=== PATIENT | male | born 1975 | race Caucasian/White ===

== ENCOUNTER 2023-10-05 03:28 | Observation (INO) | payer OTHER, SELFPAY ==
[2023-10-05] VITALS (96 sets, daily range): BP systolic 150–171; BP diastolic 80–116; PULSE 90–121; RESP 8–27; TEMP 36.6–37.1; O2SAT 87–98; BMI 39.1; BMI 39.7
[2023-10-05 03:46] LABS: Glucometer 237 mg/dL (74-106)
--- NOTE | 2023-10-05 03:47 | ECG_ITS ---
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
--- NOTE | 2023-10-05 03:49 | XR_ITS ---
The [address] [address] Patient Name: TERA ROBERTO MRN: [id number] date: 1975 Sex: M Assigned Patient Location: ER Current Patient Location: Accession/Order Number: [id number] Exam Date: 10/05/2023 03:55 Report Date: 10/05/2023 22:43 At the request of: LINA DURANT Procedure: XR chest 1V EXAM: XR CHEST 1V HISTORY: Shortness of breath. COMPARISON: None. TECHNIQUE: One view of the chest was obtained. FINDINGS: The cardiac silhouette is borderline enlarged. There is interstitial prominence. There is no significant pneumothorax or pleural effusion. No acute osseous abnormality is seen. XR/XR chest 1V IMPRESSION: Borderline enlarged cardiac silhouette with suspected interstitial edema. Electronically authenticated by: Carline ROLLINS Date: 10/05/2023 22:43
[2023-10-05 03:57] LABS: Basophils Absolute Auto 0.1 10^3/uL (0.0-0.1); Basophils Percent Auto 1.1 % (0.2-2.0); Eosinophils Absolute Auto 0.1 10^3/uL (0.0-0.7); Eosinophils Percent Auto 1.5 % (0.9-7.0); Hematocrit 49.4 % (42.0-54.0); Hemoglobin 16.5 g/dL (14.0-18.0); Immature Granulocytes Abs Auto 0.04 10^3/uL (0.00-0.03); Immature Granulocytes Pct Auto 0.8 % (0.0-0.5); Lymphocytes Absolute Auto 1.2 10^3/uL (1.2-3.8); Lymphocytes Percent Auto 22.1 % (20.5-60.0); Mean Corpuscular HGB Conc 33.4 g/dL (29.9-35.2); Mean Corpuscular Hemoglobin 34.9 pg (25.9-34.0); Mean Corpuscular Volume 104.4 fL (80.0-94.0); Mean Platelet Volume 9.9 fL (9.5-13.5); Monocytes Absolute Auto 0.6 10^3/uL (0.3-0.8); Monocytes Percent Auto 10.4 % (1.7-12.0); Neutrophils Absolute Auto 3.4 10^3/uL (1.4-6.5); Neutrophils Percent Auto 64.1 % (43.0-75.0); Platelet Count 210 10^3/uL (150-450); Red Blood Count 4.73 10^6/uL (4.70-6.10); Red Cell Distribution Width 12.2 % (11.0-15.0); White Blood Count 5.3 10^3/uL (4.0-11.0)
--- NOTE | 2023-10-05 03:57 | PC.NURSE ---
Pt presents to ER for sudden onset shortness of breath with chest pain that radiates through to his back Pt states he has no history of respiratory or cardiac diagnosis Pt states this shortness of breath woke him up from sleep Pt is red in the face, purple tinged Pt is visibly uncomfortable and working hard to breathe Pt placed on air sampling and monitoring, IV started, labs obtained as well as a blood glucose
--- NOTE | 2023-10-05 04:00 | CT_ITS ---
The [address] [address] Patient Name: TERA ROBERTO MRN: [id number] date: 1975 Sex: M Assigned Patient Location: ER Current Patient Location: ER Accession/Order Number: [id number] Exam Date: 10/05/2023 04:18 Report Date: 10/05/2023 07:55 At the request of: LINA DURANT Procedure: CT angio chest EXAMINATION: CT ANGIO CHEST (NONCORONARY), 10/05/2023 5:26 AM EST HISTORY: Technologist notes state shortness of breath; diaphoretic and history of hypertension. COMPARISON: None. TECHNIQUE: CT angiography of the chest was performed with IV contrast. MIP (maximum intensity projection) images or 3D post processing was performed. CT dose reduction technique was used, including Automated Exposure Control. FINDINGS: There is contrast within the pulmonary arteries. There is no pulmonary embolus. The pulmonary trunk is upper limits normal size measuring 3 cm in transverse dimensions. There is no right heart strain. The heart size is within normal limits. There is no pericardial fluid or thickening. There is atheromatous calcification along the left main, left anterior descending and right coronary arteries. The thoracic aorta is unremarkable. There is a small atheromatous calcification along the proximal aspect of the abdominal aorta. Mild patchy areas of groundglass opacity within both upper, both lower and right middle lobes which can be associated with a pneumonitis. There is peribronchial thickening consistent with a bronchitis. There is no pleural effusion. There is a 0.3 cm noncalcified right upper lobe nodule (series 4 image 35). There is a 0.4 cm noncalcified right middle lobe nodule (series 4 image 61). There is a 0.4 cm noncalcified left upper lobe nodule (series 4 image 55). There is a 0.5 cm noncalcified left upper lobe nodule (series 4 image 56). There are abutting 0.4 cm and 0.2 cm noncalcified left upper lobe nodules (series 4 image 59). There are 0.4 cm, 0.4 cm and 0.2 cm noncalcified left upper lobe nodules (series 4 image 47 and 48). There are enlarged mediastinal and bilateral hilar lymph nodes which may be reactive. The trachea is unremarkable. There is mild diffuse circumferential thickening of the esophageal wall which can be associated with an esophagitis or sequelae of chronic gastroesophageal reflux. The thyroid gland is unremarkable. The liver appears enlarged and fatty infiltrated. There is mild bilateral adrenal hypertrophy. There are severe degenerative changes at the right glenohumeral articulation. There are prominent paravertebral ossifications at numerous levels along the thoracic spine with the appearance of DISH. CT/CT angio chest IMPRESSION: There is no pulmonary embolus. Mild patchy areas of groundglass opacity within both upper, both lower and right middle lobes which can be associated with a pneumonitis. There is peribronchial thickening consistent with a bronchitis. There is no pleural effusion. A CT examination the chest following appropriate medical treatment is recommended to confirm complete resolution. There is a 0.3 cm noncalcified right upper lobe nodule (series 4 image 35). There is a 0.4 cm noncalcified right middle lobe nodule (series 4 image 61). There is a 0.4 cm noncalcified left upper lobe nodule (series 4 image 55). There is a 0.5 cm noncalcified left upper lobe nodule (series 4 image 56). There are abutting 0.4 cm and 0.2 cm noncalcified left upper lobe nodules (series 4 image 59). There are 0.4 cm, 0.4 cm and 0.2 cm noncalcified left upper lobe nodules (series 4 image 47 and 48). Reassessment on the follow-up CT examination recommended. There are enlarged mediastinal and bilateral hilar lymph nodes which may be reactive. Reassessment on the follow-up CT examination recommended to confirm resolution. There is mild diffuse circumferential thickening of the esophageal wall which can be associated with an esophagitis or sequelae of chronic gastroesophageal reflux. Correlate with clinical findings. The liver appears enlarged and fatty infiltrated. There is mild bilateral adrenal hypertrophy. There is atheromatous calcification along the left main, left anterior descending and right coronary arteries. Electronically authenticated by: KRYSTYNA TOVAR Date: 10/05/2023 07:55
--- NOTE | 2023-10-05 04:01 | ED.SOB1 ---
HPI - SOB/Dyspnea General Chief Complaint: Shortness of Breath/Dyspnea Stated Complaint: SOB Time Seen by Provider: 10/05/23 03:56 Source: patient Mode of arrival: walk-in Limitations: no limitations History of Present Illness HPI Narrative: diabetic, hyperlipidemia. Sleep apnea. Daily smoker. Awakened from sleep with ant. chest pressure that radiated to his back and dyspnea. His chest pressure and back pain have resolved but he still feels short of breath. No associated nausea or abdominal pain Related Data Home Medications Medication Instructions Recorded Confirmed empagliflozin 25 mg tablet mg 10/05/23 (Jardiance) glimepiride 4 mg tablet mg 10/05/23 ondansetron 4 mg disintegrating mg 10/05/23 tablet pioglitazone 30 mg tablet mg 10/05/23 simvastatin 20 mg tablet mg 10/05/23 venlafaxine 75 mg capsule,extended mg PO 10/05/23 release 24 hr Allergies Allergy/AdvReac Type Severity Reaction Status Date / Time No Known Drug Allergies Allergy Verified 10/05/23 03:39 Review of Systems ROS Status of ROS 10 or more systems reviewed and unremarkable except as noted in history and below PFSH PFS Social History Smoking status: Current every day smoker Exam Constitutional Vital Signs, click to edit/add: Last Vital Signs Temp 98.8 F 10/05/23 03:32 Pulse 106 H 10/05/23 06:01 Resp 15 10/05/23 05:20 BP 150/96 H 10/05/23 06:01 Pulse Ox 95 10/05/23 06:01 O2 Del Method Room Air 10/05/23 03:32 Common normals: no apparent distress, average body habitus, oriented x3, no limitations, healthy appearing, alert and well nourished Eye Common normals: PERRL and EOMs intact bilaterally Respiratory Common normals: normal respiratory effort, no retractions, no use of accessory muscles and clear to auscultation bilaterally Cardio Common normals: regular rate, regular rhythm, S1 normal heart sound and S2 normal heart sound GI Common normals: Normal to inspection, nondistended, normoactive bowel sounds present, soft to palpation and non-tender Extremity Common normals: normal to inspection and full ROM Neuro Common normals: oriented x3, CN's II-XII intact bilaterally, moves all extremities and no focal motor deficits Psych Appearance: grossly normal Course Vital Signs Vital signs: Vital Signs Temperature 98.8 F 10/05/23 03:32 Pulse Rate 116 H 10/05/23 03:32 Respiratory Rate 22 10/05/23 03:32 Blood Pressure 167/116 H 10/05/23 03:32 Pulse Oximetry 95 10/05/23 03:32 Oxygen Delivery Method Room Air 10/05/23 03:32 Temperature 98.8 F 10/05/23 03:32 Pulse Rate 106 H 10/05/23 06:01 Respiratory Rate 15 10/05/23 05:20 Blood Pressure 150/96 H 10/05/23 06:01 Pulse Oximetry 95 10/05/23 06:01 Oxygen Delivery Method Room Air 10/05/23 03:32 MDM - SOB/Dyspnea MDM Narrative Medical decision making narrative: diabetic awakened from sleep with chest pressure that radiated through to his back and shortness of breath. Still short of breath with exertion.Daily smoker. First troponin neg. CTA chest with findings of pneumonitis and bronchitis. Also multiple pulm noudles that will require follow up .Patient is asymptomatic at rest but becomes short of breath with exertion. Discussed with Dr Hall who would like a 2nd troponin. If it is neg, he can be admitted here. Patient informed of the plan care transferred to Dr Andino to review results of 2nd troponin and disposition the patient resp. panel also pending Lab Data Labs: Lab Results 10/05/23 10/05/23 Range/Units 03:44 03:45 WBC 5.3 (4.0-11.0) 10^3/uL RBC 4.73 (4.70-6.10) 10^6/uL Hgb 16.5 (14.0-18.0) g/dL Hct 49.4 (42.0-54.0) % MCV 104.4 H (80.0-94.0) fL MCH 34.9 H (25.9-34.0) pg MCHC 33.4 (29.9-35.2) g/dL RDW 12.2 (11.0-15.0) % Plt Count 210 (150-450) 10^3/uL MPV 9.9 (9.5-13.5) fL Neut % (Auto) 64.1 (43.0-75.0) % Lymph % (Auto) 22.1 (20.5-60.0) % [place] % (Auto) 10.4 (1.7-12.0) % Eos % (Auto) 1.5 (0.9-7.0) % Baso % (Auto) 1.1 (0.2-2.0) % Neut # (Auto) 3.4 (1.4-6.5) 10^3/uL Lymph # (Auto) 1.2 (1.2-3.8) 10^3/uL [place] # (Auto) 0.6 (0.3-0.8) 10^3/uL Eos # (Auto) 0.1 (0.0-0.7) 10^3/uL Baso # (Auto) 0.1 (0.0-0.1) 10^3/uL Abs Immat Gran (auto) 0.04 H (0.00-0.03) 10^3/uL Imm/Tot Granulo (auto) 0.8 H (0.0-0.5) % D-Dimer 0.43 (<=0.59) mg/L FEU Sodium 140 (136-145) mmol/L Potassium 4.7 (3.5-5.1) mmol/L Chloride 104 (98-107) mmol/L Carbon Dioxide 25.1 (21.0-32.0) mmol/L Anion Gap 15.6 BUN 19.0 H (7.0-18.0) mg/dL Creatinine 0.97 (0.70-1.30) mg/dL Est GFR ( Amer) >60 (>=60) Est GFR (Non-Af Amer) >60 (>=60) BUN/Creatinine Ratio 19.6 Glucose 262 H (74-106) mg/dL Calcium 9.2 (8.5-10.1) mg/dL Total Bilirubin 0.2 (0.2-1.0) mg/dL AST 31 (15-37) U/L ALT 86 H (16-63) U/L Alkaline Phosphatase 108 (46-116) U/L Troponin I High Sens 23.2 (4.0-76.1) pg/mL Total Protein 7.6 (6.4-8.2) g/dL Albumin 3.6 (3.4-5.0) g/dL Globulin 4.0 g/dL Albumin/Globulin Ratio 0.9 POC Glucose 237 H (74-106) mg/dL Discharge Plan Discharge Patient Disposition: Still a Patient
[2023-10-05 04:17] LABS: Alanine Aminotransferase 86 U/L (16-63); Albumin Globulin Ratio 0.9; Albumin Level 3.6 g/dL (3.4-5.0); Alkaline Phosphatase 108 U/L (46-116); Anion Gap 15.6; Aspartate Amino Transferase 31 U/L (15-37); BUN Creatinine Ratio 19.6; Bilirubin Total 0.2 mg/dL (0.2-1.0); Calcium 9.2 mg/dL (8.5-10.1); Carbon Dioxide 25.1 mmol/L (21.0-32.0); Chloride 104 mmol/L (98-107); Estimated GFR (African America >60 (>=60); Estimated GFR (Non-African Ame >60 (>=60); Glucose 262 mg/dL (74-106); Potassium 4.7 mmol/L (3.5-5.1); Sodium 140 mmol/L (136-145); Total Protein 7.6 g/dL (6.4-8.2); Troponin I High Sensitivity 23.2 pg/mL (4.0-76.1)
[2023-10-05 04:33] LABS: D Dimer 0.43 mg/L FEU (<=0.59)
[2023-10-05 06:36] LABS: Adenovirus NOT DETECTED (NOT DETECTE); Coronavirus 229E NOT DETECTED (NOT DETECTE); Coronavirus HKU1 NOT DETECTED (NOT DETECTE); Coronavirus NL63 NOT DETECTED (NOT DETECTE); Coronavirus OC43 NOT DETECTED (NOT DETECTE); Human Metapneumovirus NOT DETECTED (NOT DETECTE); SARS-CoV-2 NOT DETECTED (NOT DETECTE)
[2023-10-05 06:37] LABS: Bordetella parapertussis NOT DETECTED (NOT DETECTE); Human Rhinovirus/Enterovirus NOT DETECTED (NOT DETECTE); Influenza A NOT DETECTED (NOT DETECTE); Influenza B NOT DETECTED (NOT DETECTE); Mycoplasma pneumoniae NOT DETECTED (NOT DETECTE); Parainfluenza Virus 1 NOT DETECTED (NOT DETECTE); Parainfluenza Virus 2 NOT DETECTED (NOT DETECTE); Parainfluenza Virus 3 NOT DETECTED (NOT DETECTE); Parainfluenza Virus 4 NOT DETECTED (NOT DETECTE); Respiratory Syncytial Virus NOT DETECTED (NOT DETECTE)
[2023-10-05 06:51] LABS: Troponin I High Sensitivity 26.8 pg/mL (4.0-76.1)
--- NOTE | 2023-10-05 07:48 | P.HP_ITS ---
H&P: HPI History of Present Illness Chief complaint: SOB Narrative: Patient with his at home and awoken with chest pain. Got up to go to the bathroom and had significant shortness of breath. Presented to the emergency room. Patient found to have acute hypoxia with O2 saturation of 87%. CTA shows groundglass appearance possible CHF, BNP is pending. When I saw patient in the intensive care unit his breathing is fairly comfortable to him on supplemental oxygen. But did state that he was just up to go to the bathroom without it and had significant shortness of breath Review of Systems ROS Status of ROS 10 or more systems reviewed and unremark able except as noted in history and below PFSH PFS Social History Smoking status: Current every day smoker Meds Home Medications and Allergies Home Medications Medication Instructions Recorded Confirmed Type empagliflozin 25 mg tablet 25 mg PO DAILY 10/05/23 10/05/23 History (Jardiance) glimepiride 4 mg tablet 8 mg PO DAILY 10/05/23 10/05/23 History pioglitazone 30 mg tablet 30 mg PO DAILY 10/05/23 10/05/23 History simvastatin 20 mg tablet 20 mg PO DAILY 10/05/23 10/05/23 History venlafaxine 75 mg capsule,extended 75 mg PO DAILY 10/05/23 10/05/23 History release 24 hr Allergies Allergy/AdvReac Type Severity Reaction Status Date / Time No Known Drug Allergies Allergy Verified 10/05/23 03:39 Exam Constitutional Vital Signs, click to edit/add: Last Vital Signs Temp 98.8 F 10/05/23 03:32 Pulse 108 H 10/05/23 07:10 Resp 15 10/05/23 05:20 BP 150/96 H 10/05/23 06:01 Pulse Ox 98 10/05/23 06:20 O2 Del Method Room Air 10/05/23 03:32 Documenting provider has reviewed patient's vital signs: yes Common normals: no apparent distress (While rest in bed, see above with activity) Lymph Lymphatic: no lymphadenopathy noted Chest Common normals: inspection of chest normal Respiratory Common normals: normal respiratory effort, no retractions and clear to auscultation bilaterally Cardio Common normals: regular rate, regular rhythm and no murmurs GI Common normals: Normal to inspection, nondistended, normoactive bowel sounds present Extremity Common normals: abnormal to inspection (1+ edema in lower extremities) Results Labs Labs: Short CBC 10/05/23 Range/Units 03:45 WBC 5.3 (4.0-11.0) 10^3/uL Hgb 16.5 (14.0-18.0) g/dL Hct 49.4 (42.0-54.0) % Plt Count 210 (150-450) 10^3/uL BMP 10/05/23 03:45 Sodium 140 Potassium 4.7 Chloride 104 Carbon Dioxide 25.1 BUN 19.0 H Creatinine 0.97 Glucose 262 H Calcium 9.2 Liver Function 10/05/23 Range/Units 03:45 Total Bilirubin 0.2 (0.2-1.0) mg/dL AST 31 (15-37) U/L ALT 86 H (16-63) U/L Alkaline Phosphatase 108 (46-116) U/L Albumin 3.6 (3.4-5.0) g/dL Assessment and Plan Assessment and Plan (1) Chest pain: Plan Uncontrolled hypertension, sinus tachycardia, respiratory distress, acute hypoxia with O2 saturation of 87%, improved with supplemental oxygen at 2 L, no chest pain. CT scan with groundglass appearance, COVID test is negative, BNP is pending-suspect suspect possibly heart failure secondary to hypertensive urgency., check echocardiogram, serial troponins, thyroid profile. Placed patient in intensive care unit. Pneumonitis on CT scan-will start IV antibiotics NIDDM-insulin sliding scale, continue with home medications Hypercholesterolemia-continue with home medications Depression symptoms-continue with home medications With acute onset of symptoms, concern for hypertensive urgency leading to acute combined congestive heart failure-lung exam fairly clear though. CT scan consistent with possible fluid overload. Check being BNP. Placed patient in intensive acute care unit in observation bed, better than 50% chance to be discharged tomorrow
--- NOTE | 2023-10-05 07:54 | CA_ITS ---
Patient Name: TERA ROBERTO MR#: [id number] : 1975 Exam Date: 10/05/2023 Ordering Doctor: DR ADARSH HORTON . ECHOCARDIOGRAM REPORT PROCEDURE: CA ECHO W/ CON INDICATIONS: Dyspnea COMPARISON: None. DESCRIPTION: COMPLETE ECHOCARDIOGRAM Real-time transthoracic echocardiography with 2D, M-mode, spectral and color flow Doppler performed. QUALITY: Lumason contrast was administered due to suboptimal imaging for left ventricular opacification to improve delineation of endocardial boarders. LEFT VENTRICLE: Mild dilatation. Mild concentric left ventricular hypertrophy. LV EF: Global left ventricular systolic function is Moderately reduced; visually estimated ejection fraction is 35 to 40%. Calculated left ventricular ejection fraction is 19%. The distal third of the myocardium including the apex appears akinetic. DIASTOLIC: Diastolic dysfunction. ATRIAL SEPTUM: Inadequately seen. LEFT ATRIUM: Moderate dilatation. RIGHT ATRIUM: Normal chamber size. RIGHT VENTRICLE: Mild dilatation. Right ventricular function is difficult to access due to image quality. TRICUSPID VALVE: Normal mobility and thickness. No stenosis with trivial regurgitation. No evidence of pulmonary hypertension. RVSP 29mmHg MITRAL VALVE: Normal mobility and thickness. No evidence of mitral valve stenosis. There is no mitral annular calcification. Trivial mitral regurgitation. AORTIC VALVE: Normal trileaflet appearance. No visible sclerosis. Normal leaflet mobility. No evidence of aortic valve stenosis. No aortic regurgitation. AORTIC ROOT: Normal diameter and appearance. PULMONIC VALVE: Normal thickness and mobility. No stenosis. No regurgitation. PERICARDIUM: No evidence of pericardial effusion. IVC: Collapses with inspirations. Dilated measuring 2.4cm. CONCLUSION: 1. Global left ventricular systolic function is moderately reduced; visually estimated ejection fraction of 35 to 40% 2. The distal third of the myocardium including the apex is akinetic: echocardiographic picture suggestive of Takotsubo cardiomyopathy in the absence of underlying coronary artery disease 3. Mild dilatation of the left ventricle; mild increased left ventricular wall thickness 4. The right ventricle is poorly seen; it is enlarged 5. Diastolic dysfunction 6. The left atrium is enlarged 7. No significant valvular abnormalities Adult Echocardiography Procedure Report Left Ventricle LVEDD (3.7 - 5.6 cm): 5.89 cm LVESD (2.2 - 4.0 cm): 5.37 cm LVIVS thickness (0.6 - 1.2 cm): 1.19 cm LVPW thickness (0.5 - 1.0 cm): 1.24 cm e': 0.07 m/s E - e': 12.16 LVOT Max Gradient: 3.30 mm[Hg] LVOT Area (cm2): 0.91 m/s Peak Velocity (LVOT): 0.91 m/s Mean Velocity (LVOT): 0.48 m/s LVOT Diameter 2.20 cm Left Ventricular Ejection Fraction: 18.89 % Left Atrium LA Volume Index (2D A2C): 47.73 ml/m2 Left Atrium Systolic Dimension: 4.11 cm Mitral Valve MV E to A Ratio: 3.32 Mitral Valve A-Wave Peak Velocity: 0.27 m/s Mitral Valve E-Wave Peak Velocity: 0.88 m/s Right Ventricle RV Internal Diastolic Dimension: 4.10 cm Aorta AO Root Diam: 3.63 cm Ascending Ao Diam: 3.25 cm Aortic Valve AoV Area (Peak Darrian): 3.00 cm2, 3.00 cm2 AoV Area (VTI): 3.85 cm2, 3.85 cm2 Peak Velocity(Antegrade Flow): 1.15 m/s Peak Gradient(Antegrade Flow): 5.33 mm[Hg] Mean Velocity(Antegrade Flow): 0.69 m/s Mean Gradient(Antegrade Flow): 2.40 mm[Hg] Velocity Time Integral: 17.06 cm Tricuspid Valve Peak Velocity (Regurgitant Flow): 2.26 m/s, 1.98 m/s Pulmonic Valve Peak Velocity: 0.65 m/s Peak Gradient: 1.73 mm[Hg], 1.63 mm[Hg] Right Atrium Right Atrium Systolic Pressure: 56.85 ml, 56.85 ml Dictated by: Yakelin Herrera M.D. on 10/05/2023 at 12:28 Approved by: Yakelin Herrera M.D. on 10/05/2023 at 12:39
[2023-10-05 08:59] LABS: Magnesium 2.5 mg/dL (1.8-2.4)
[2023-10-05 09:08] LABS: Troponin I High Sensitivity 30.1 pg/mL (4.0-76.1)
[2023-10-05 09:15] LABS: Free T3 2.75 pg/mL (2.18-3.98); Thyroid Stimulating Hormone 1.202 uIU/mL (0.358-3.740)
[2023-10-05 09:52] LABS: Glucometer 203 mg/dL (74-106)
[2023-10-05] MEDS: VENLAFAXINE HCL ER 75 MG CAPSULE PO (10:15)
[2023-10-05] MEDS: METOPROLOL TARTRATE 50 MG TABLET PO (11:02)
[2023-10-05 11:31] LABS: Troponin I High Sensitivity 29.6 pg/mL (4.0-76.1)
[2023-10-05] MEDS: PANTOPRAZOLE SODIUM 40 MG VIAL IV (12:10)
[2023-10-05] MEDS: SULFUR HEXAFLUORIDE MICROSPHR 25 MG (5ML VIAL) IV (12:19)
[2023-10-05 12:45] LABS: Glucometer 169 mg/dL (74-106)
[2023-10-05] MEDS: FUROSEMIDE 40 MG/4 ML VIAL IVP (13:47)
--- NOTE | 2023-10-05 15:49 | SWNOTE1 ---
Pt is being transferred at 5:00pm.
--- NOTE | 2023-10-05 17:08 | PC.NURSE ---
Patient was transferring back from the restroom when he complained of being short of breath. 2L NC of oxygen was applied and patient was still unable to catch his breath and his oxygen saturation was noted to decrease to 88% while on the oxygen. At that this time, he required further titration and education on breathing exercises including use of the PEP. Patient began to relax and was able to catch his breath. Lasix was administered to patient, see eMAR. Patient did report that he was feeling much better 30 minutes after receiving Lasix, and oxygen was able to be titrated down at this time. Patient is now back on room air. Will continue to monitor patient.
[2023-10-05 17:30] LABS: Glucometer 164 mg/dL (74-106)
== END 2023-10-05 17:45 | disposition short-term general hospital (02) ==
LOC: ER 06:27 → ICU 08:08
PROVIDERS: Admitting Provider Family Medicine; Emergency Provider Internal Medicine; PCP Family Medicine; Visit Provider Family Medicine
DX: R07.9 Chest pain, unspecified (principal); F17.210 Nicotine dependence, cigarettes, uncomplicated; E11.9 Type 2 diabetes mellitus without complications; Z79.84 Long term (current) use of oral hypoglycemic drugs; R91.8 Other nonspecific abnormal finding of lung field; J98.4 Other disorders of lung; R06.02 Shortness of breath; I16.0 Hypertensive urgency; I10 Essential (primary) hypertension; E78.00 Pure hypercholesterolemia, unspecified; R09.02 Hypoxemia; J40 Bronchitis, not specified as acute or chronic; Z20.822 Contact with and (suspected) exposure to COVID-19; R45.89 Other symptoms and signs involving emotional state; G47.30 Sleep apnea, unspecified
CPT/HCPCS: 0202U; 36415; 36416; 71045; 71275; 80053; 82948; 83735; 83880; 84436; 84443; 84481; 84484; 85025; 85378; 93005; 94667; 94761; 96374; 96375; 99285; C8929; G0378; Q9950; Q9967

== ENCOUNTER 2023-10-11 10:17 | Outpatient (OUT) | payer OTHER, SELFPAY ==
--- OUTSIDE RECORDS SUMMARY | 2023-10-11 10:27 | XMS_ITS | CCD ---
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 [facility] Comment on above: Performed By: #### L [id number] ####[facility] (BEAKER)[address] [place] [address] Hematocrit (Bld) [Volume fraction] 48.0 % Normal 39.0-55.0 [facility] Comment on above: Performed By: #### L [id number] ####[facility] (BEAKER)[address] [place] [address] Hemoglobin (Bld) [Mass/Vol] 16.1 g/dL Normal 13.0-17.0 [facility] Comment on above: Performed By: #### L [id number] ####[facility] (BEAKER)[address] [place] [address] Immature granulocytes (Bld) [#/Vol] 0.02 10*3/uL Normal 0.00-0.20 [facility] Comment on above: Performed By: #### L [id number] ####[facility] (BEAKER)[address] [place] [address] Immature granulocytes/100 WBC (Bld) 0.3 % Normal 0.0-1.0 [facility] Comment on above: Performed By: #### L [id number] ####[facility] ([facility])[address] [place] [address] Lymphocytes (Bld) [#/Vol] 1.47 10*3/uL Normal 1.20-4.00 [facility] Comment on above: Performed By: #### L [id number] ####[facility] ([facility])[address] [place] [address] Lymphocytes/100 WBC (Bld) 24.6 % Normal 20.0-45.0 [facility] Comment on above: Performed By: #### L [id number] ####[facility] ([facility])[address] [place] [address] MCH (RBC) [Entitic mass] 34.8 pg High 27.0-33.0 [facility] Comment on above: Performed By: #### L [id number] ####[facility] ([facility])[address] [place] [address] MCV (RBC) [Entitic vol] 103.9 fL High 82.0-98.0 [facility] Comment on above: Performed By: #### L [id number] ####[facility] ([facility])[address] [place] [address] Monocytes (Bld) [#/Vol] 0.85 10*3/uL Normal 0.10-1.00 [facility] Comment on above: Performed By: #### L [id number] ####[facility] ([facility])[address] [place] [address] Monocytes/100 WBC (Bld) 14.2 % High 5.0-12.0 [facility] Comment on above: Performed By: #### L [id number] ####[facility] ([facility] [place] [address] Neutrophils (Bld) [#/Vol] 3.46 10*3/uL Normal 1.60-7.60 [facility] Comment on above: Performed By: #### L [id number] ####[facility] (BEAKER)[address] [place] [address] Neutrophils/100 WBC (Bld) 57.9 % Normal 40.0-72.0 [facility] Comment on above: Performed By: #### L [id number] ####[facility] ([facility] [place] [address] NRBC (PER 100 WBCS) BY AUTOMATED COUNT 0.0 % Normal 0 [facility] Comment on above: Performed By: #### L [id number] ####[facility] ([facility])[address] [place] [address] PLATELETS (10*3/UL) IN BLOOD AUTOMATED COUNT 196 10*3/uL Normal 150-400 [facility] Comment on above: Performed By: #### L [id number] ####[facility] ([facility])[address] [place] [address] RBC (Bld) [#/Vol] 4.62 10*6/uL Normal 4.20-5.70 [facility] Comment on above: Performed By: #### L [id number] ####[facility] ([facility])[address] [place] [address] WBC (Bld) [#/Vol] 5.98 10*3/uL Normal 4.00-10.60 [facility] Comment on above: Performed By: #### L [id number] ####[facility] ([facility] [place] [address] POCT GLUCOSE METER UNSOLICIT ED RESULTSon 10-08-2023 Glucose [Mass/Vol] 171 mg/dL High 70-105 [facility] Comment on above: Order Comment: Waive d Testing in the ED is performed under the ED CLIA certificate #[id number]. Result Comment: [email or web address] Performed By: #### L [id number] ####[facility] ([facility] [place] [address] Glucose [Mass/Vol] 128 mg/dL High 70-105 [facility] Comment on above: Order Comment: Waive d Testing in the ED is performed under the ED CLIA certificate #[id number]. Result Comment: [email or web address] Performed By: #### L [id number] ####[facility] (BE[facility]ER)[address] [place] [address] Glucose [Mass/Vol] 170 mg/dL High 70-105 [facility] Comment on above: Order Comment: Waive d Testing in the ED is performed under the ED CLIA certificate #[id number]. Result Comment: [email or web address] Performed By: #### L [id number] ####[facility] (BEAKER)[address] [place] [address] Glucose [Mass/Vol] 174 mg/dL High 70-105 [facility] Comment on above: Order Comment: Waive d Testing in the ED is performed under the ED CLIA certificate #[id number]. Result Comment: [email or web address] Performed By: #### L [id number] ####[facility] (BEAKER)[address] [place] [address] 30on 10-07-2023 30 The patient is Moderately Stable - Low risk of patient condition declining or worsening The patient's goals for the shift include rest The clinical goals for the shift include comfort/vss Problem: Pain - Adult Goal: Verbalizes/displays adequate comfort level or baseline comfort level Outcome: Progressing Flowsheets (Taken 10/07/2023746) Verbalizes/displays adequate comfort level or baseline comfort level: Encourage patient to monitor pain and request assistance Assess pain using appropriate pain scale Implement non-pharmacological measures as appropriate and evaluate response Consider cultural and social influences on pain and pain management Notify Licensed Independent Practitioner if interventions unsuccessful or patient reports new pain Problem: Safety - Adult Goal: Free from fall injury Outcome: Progressing Flowsheets (Taken 10/07/2023746) Free from fall injury: Assess patient frequently for physical needs Identify cognitive and physical deficits and behaviors that affect risk of falls [place] fall precautions as indicated by assessment Educate patient/family on patient safety, including physical limitations Instruct patient to call for assistance with activity based on assessment Modify environment to reduce risk of injury Consider OT/PT consult to assist with strengthening/mobility Problem: Discharge Planning Goal: Discharge to home or other facility with appropriate resources Outcome: Progressing Flowsheets (Taken 10/07/2023746) Discharge to home or other facility with appropriate resources: Identify barriers to discharge with patient and caregiver Arrange for needed discharge resources and transportation as appropriate Identify discharge learning needs (meds, wound care, etc) Refer to discharge planning if patient needs post-hospital services based on physician order or complex needs related to functional status, cognitive ability or social support system Problem: Chronic Conditions and Co-morbidities Goal: Patient's chronic conditions and co-morbidity symptoms are monitored and maintained or improved Outcome: Progressing Flowsheets (Taken 10/07/2023746) Care Plan - Patient's Chronic Conditions and Co-Morbidity Symptoms are Monitored and Maintained or Improved: Monitor and assess patient's chronic conditions and comorbid symptoms for stability, deterioration, or improvement Collaborate with multidisciplinary team to address chronic and comorbid conditions and prevent exacerbation or deterioration Update acute care plan with appropriate goals if chronic or comorbid symptoms are exacerbated and prevent overall improvement and discharge Problem: Heart Failure diagnosis knowledge deficit Goal: Patient will verbalize understanding of how heart failure affects the body Outcome: Progressing Goal: Patient will verbalize understanding of how other conditions affect the heart Outcome: Progressing Problem: Fluid retention/overload Goal: Patient will be able to identify signs and symptoms of fluid retention Outcome: Progressing Problem: Heart failure medication adherence Goal: Consistently take heart failure medication as prescribed Outcome: Progressing Problem: Insufficient exercise regimen Goal: Patient will engage in physical activity safely Outcome: Progressing Problem: Heart failure progression and care needs Goal: Patient will verbalize understanding of heart failure progression Outcome: Progressing Problem: Heart failure maintenance Goal: Patient will not experience any symptoms of shortness of breath or body swelling over the next 3 months Outcome: Progressing Normal [facility] ANESon 10-07-2023 ANES -- Attestation signed by Yakelin Herrera MD at 10/07/2023 11:02 AM Yakelin Herrera MD, MPH, FACC, [facility], [facility] Interventional Cardiology Pager Email: 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 Use of blood products discussed with patient who. Plan discussed with attending. Additional Equipment Requests Normal [facility] BASIC METABOLIC PANELon 03-0 Anion gap [Moles/Vol] 14 mmol/L Normal 7-20 [facility] Comment on above: Performed By: #### L [id number] #### [facility] (AKER) [address] [place] [address] Calcium [Mass/Vol] 9.5 mg/dL Normal 8.6-10.3 [facility] Comment on above: Performed By: #### L [id number] #### [facility] (BEAKER) [address] [place] [address] Chloride [Moles/Vol] 101 mmol/L Normal 98-107 [facility] Comment on above: Performed By: #### L [id number] #### [facility] (BEAKER) [address] [place] [address] CO2 [Moles/Vol] 26 mmol/L Normal 21-31 [facility] Comment on above: Performed By: #### L [id number] #### [facility] (BEAKER) [address] [place] [address] Creatinine [Mass/Vol] 0.96 mg/dL Normal 0.70-1.30 [facility] Comment on above: Performed By: #### L [id number] #### [facility] ([facility]) [address] [place] [address] GLOMERULAR FILTRATION RATE ML/MIN/1.73 SQ M.PREDICTED 96.3 mL/min/1.73m*2 Normal >60.0 [facility] Comment on above: Result Comment: The [facility]???s estimated glomerular filtration rate (eGFR) will no longer include consideration of race in its calculation. The [employer]???s eGFR Task Force developed new recommendations for the estimation of the glomerular filtration rate in the [place] They recommend immediate implementation of the new equation refit without the race variable in all laboratories because the calculation does not include race. In addition to not including race in the calculation and reporting, it included diversity in its development, and has acceptable performance characteristics and potential consequences that do not disproportionately affect any one group of individuals. Performed By: #### L [id number] #### [facility] ([facility]) [address] [place] [address] Glucose [Mass/Vol] 208 mg/dL High 70-100 [facility] Comment on above: Performed By: #### L [id number] #### [facility] ([facility]) [address] [place] [address] Potassium [Moles/Vol] 3.9 mmol/L Normal 3.5-5.1 [facility] Comment on above: Performed By: #### L [id number] #### [facility] ([facility]) [address] [place] [address] Sodium [Moles/Vol] 137 mmol/L Normal 136-145 [facility] Comment on above: Performed By: #### L [id number] #### [facility] ([facility]) [address] [place] [address] Urea nitrogen [Mass/Vol] 30 mg/dL High 7-25 [facility] Comment on above: Performed By: #### L [id number] #### [facility] ([facility]) [address] [place] [address] UREA NITROGEN/CREATININE (MASS RATIO) IN SER/PLAS 31.3 Normal [facility] Comment on above: Performed By: #### L [id number] #### [facility] ([facility]) [address] [place] [address] CBC WITH AUTO DIFFERENTIALon 10-07-2023 Basophils (Bld) [#/Vol] 0.03 10*3/uL Normal 0.00-0.20 [facility] Comment on above: Performed By: #### L [id number] #### [facility] ([facility]) [address] [place] [address] Basophils/100 WBC (Bld) 0.6 % Normal 0.0-1.0 [facility] Comment on above: Performed By: #### L [id number] #### [facility] ([facility]) [address] [place] [address] Eosinophils (Bld) [#/Vol] 0.11 10*3/uL Normal 0.00-0.50 [facility] Comment on above: Performed By: #### L [id number] #### [facility] ([facility]) [address] [place] [address] Eosinophils/100 WBC (Bld) 2.0 % Normal 0.0-6.0 [facility] Comment on above: Performed By: #### L [id number] #### [facility] ([facility]) [address] [place] [address] Erythrocyte distribution width (RBC) [Ratio] 12.2 % Normal 11.5-15.0 [facility] Comment on above: Performed By: #### L [id number] #### [facility] ([facility]) [address] [place] [address] ERYTHROCYTE MEAN CORPUSCULAR HEMOGLOBIN CONCENTRATION (G/DL) BY AUTOMATED 34.3 g/dL Normal 32.0-35.0 [facility] Comment on above: Performed By: #### L [id number] #### [facility] (BEAKER) [address] [place] [address] Hematocrit (Bld) [Volume fraction] 50.5 % Normal 39.0-55.0 [facility] Comment on above: Performed By: #### L [id number] #### [facility] (BEAKER) [address] [place] [address] Hemoglobin (Bld) [Mass/Vol] 17.3 g/dL High 13.0-17.0 [facility] Comment on above: Performed By: #### L [id number] #### [facility] ([facility]) [address] [address] Immature granulocytes (Bld) [#/Vol] 0.02 10*3/uL Normal 0.00-0.20 [facility] Comment on above: Performed By: #### L [id number] #### [facility] ([facility]) [address] [place] [address] Immature granulocytes/100 WBC (Bld) 0.4 % Normal 0.0-1.0 [facility] Comment on above: Performed By: #### L [id number] #### [facility] ([facility]) [address] [place] [address] Lymphocytes (Bld) [#/Vol] 1.32 10*3/uL Normal 1.20-4.00 [facility] Comment on above: Performed By: #### L [id number] #### [facility] ([facility]) [address] [place] [address] Lymphocytes/100 WBC (Bld) 24.3 % Normal 20.0-45.0 [facility] Comment on above: Performed By: #### L [id number] #### [facility] [address] [place] [address] MCH (RBC) [Entitic mass] 34.9 pg High 27.0-33.0 [facility] Comment on above: Performed By: #### L [id number] #### [facility] (BEAKER) [address] [place] [address] MCV (RBC) [Entitic vol] 102.0 fL High 82.0-98.0 [facility] Comment on above: Performed By: #### L [id number] #### [facility] ([facility]) [address] [place] [address] Monocytes (Bld) [#/Vol] 0.68 10*3/uL Normal 0.10-1.00 [facility] Comment on above: Performed By: #### L [id number] #### [facility] ([facility]) [address] [place] [address] Monocytes/100 WBC (Bld) 12.5 % High 5.0-12.0 [facility] Comment on above: Performed By: #### L [id number] #### [facility] ([facility]) [address] [place] [address] Neutrophils (Bld) [#/Vol] 3.27 10*3/uL Normal 1.60-7.60 [facility] Comment on above: Performed By: #### L [id number] #### [facility] ([facility]) [address] [place] [address] Neutrophils/100 WBC (Bld) 60.2 % Normal 40.0-72.0 [facility] Comment on above: Performed By: #### L [id number] #### [facility] ([facility]) [address] [place] [address] NRBC (PER 100 WBCS) BY AUTOMATED COUNT 0.0 % Normal 0 [facility] Comment on above: Performed By: #### L [id number] #### [facility] ([facility]) [address] [place] [address] PLATELETS (10*3/UL) IN BLOOD AUTOMATED COUNT 216 10*3/uL Normal 150-400 [facility] Comment on above: Performed By: #### L [id number] #### [facility] [address] [place] [address] RBC (Bld) [#/Vol] 4.95 10*6/uL Normal 4.20-5.70 [facility] Comment on above: Performed By: #### L [id number] #### [facility] (BEAKER) [address] [place] [address] WBC (Bld) [#/Vol] 5.43 10*3/uL Normal 4.00-10.60 [facility] Comment on above: Performed By: #### L [id number] #### [facility] (NATALIEAKER) [address] [place] [address] CONSULTon 10-07-2023 CONSULT -- Attestation signed by Zaki Valenzuela MD at 10/07/2023 1:47 PM I personally saw and examined the patient on the same date of service as fellow Lobo. I discussed the findings and therapeutic plan with the fellow Lobo. I agree with the documentation, except for any edits/updates below. Teaching Physician's Revisions: Chest images and medical records were reviewed. Chest x-ray taken at our facility was reviewed which shows cardiomegaly with associated slightly increased inerstitial and vascular makings but the report from the transferring hospital showed groundglass opacities with peribronchial thickening and also large mediastinal and bilateral hilar adenopathies. Cardiac catheterization report: Nonobstructive coronary arteries with severely reduced global left ventricular systolic function. Normal right-sided appearing pressures and low normal pulmonary capillary wedge pressure. Mildly reduced cardiac output/index. Nonischemic cardiomyopathy most likely. Continue to monitor the respiratory status very closely. Decrease FiO2 concentration progressively keeping FiO2 equal or above 90%. Intermittent CPAP therapy. Pulmonology Consult Patient : Tera Roberto : 1975 Location: [id number] Attending: Destinee Lr MD Admit Date: 10/05/2023 Hospital Day: 2 Reason for Consult: Shortness of breath. Interstitial changes on CT scan. HPI: Tera Roberto is a 48 y.o. male with a past medical history of hypertension, obesity, type 2 diabetes, obstructive sleep apnea. Patient presented to the outside hospital with sudden onset shortness of breath while going to the bathroom, associated with some chest pain, nausea and vomiting. Denies any cough or sputum production, no recent fever or chills, no sick contact or recent travel. By the time he went to the hospital his chest pain has resolved, he had CTA which showed no evidence of PE, showed groundglass opacities and peribronchial thickening. There was a large mediastinal and bilateral hilar lymphadenopathy. Patient was transferred to [facility] for further evaluation, echocardiogram showed EF to 20 to 25%, he was evaluated by cardiology team, he was started on Lasix 20 mg IV twice daily, along with beta-blockers and GENOVEVA inhibitor's. He was planned for left heart sided heart cath to rule out coronary artery disease During my evaluation today patient was not complaining of any shortness of breath, denies cough or sputum production. He smokes half a pack a day for last 10 years, denies any drugs or vaping. No sick contact or recent travel. Most recent PFT Not available Most recent Echo Global left ventricular systolic function is severely reduced. EF range is estimated at 20 % -25 %. Left ventricular wall thickness is at upper normal limits. Diffuse global hypokinesis Most recent previous Chest imaging IMPRESSION: Cardiac silhouette is mildly enlarged. No other congestive features are noted however. There is no large pleural effusion. No cephalization of vessels. No focal airspace disease or infiltrate is appreciated. No acute pulmonary process is noted Assessment: # Acute hypoxic respiratory failure, secondary to heart failure with reduced ejection fraction # Bilateral groundglass opacities and hilar lymphadenopathy. Be infectious versus inflammatory. Flu PCR and COVID-negative. # Heart failure with reduced ejection fraction. Plan for cath today # Obesity # LARS Plan: -Changes on CT scan most likely related to CHF. -Management of CHF and possible underlying coronary artery disease as per cardiology -Wean down oxygen as tolerated, saturation well above 92%. -CPAP overnight. -Will need close follow-up as an outpatient with repeated images. -Sleep study evaluation as an outpatient Thank you for your consult pulmonary team will continue to follow. Past History/Allergies?Soci al History: No past medical history on file. No Known Allergies Social History Socioeconomic History Marital status: Spouse name: Not on file Number of children: Not on file Years of education: Not on file Highest education level: Not on file Occupational History Not on file Tobacco Use Smoking status: Every Day Packs/day: 0.50 Years: 10.00 Additional pack years: 0.00 Total pack years: 5.00 Types: Cigarettes Smokeless tobacco: Never Substance and Sexual Activity Alcohol use: Not on file Drug use: Not on file Sexual activity: Not on file Other Topics Concern Not on file Social History Narrative Not on file Social Determinants of Health Financial Resource Strain: Low Risk (10/05/2023) Overall Financial Resource Strain (CARDIA) Difficulty of Paying Living Expenses: Not very hard Food Insecurity: No Food Insecurity (more content not included)... [facility] HPon 10-07-2023 HP -- Attestation signed by Yakelin Herrera MD at 10/07/2023 11:02 AM Yakelin Herrera MD, MPH, [facility], [facility], [facility] Interventional Cardiology Pager Email: [email or web address] [email or web address] reviewed. Patient with multiple coronary artery disease risk factors including hypertension, diabetes, hyperlipidemia and tobacco use. Presented with chest pain and shortness of breath and found to have acute systolic heart failure with decreased EF 20-25% in addition to chest pain. Global hypokinesis. Will proceed with coronary angiography and RHC. The procedure was explained to the patient. The risks and benefits of the procedure were explained to the patient who showed understanding and with full capacity elected to proceed with the procedure. All questions were addressed and answered. Florina Prasad MD Cart Attendant - PGY5 [facility] POCT GLUCOSE METER UNSOLICIT ED RESULTSon 10-07-2023 Glucose [Mass/Vol] 173 mg/dL High 70-105 [facility] Comment on above: Order Comment: Waive d Testing in the ED is performed under the ED CLIA certificate #[id number]. Result Comment: [email or web address] Performed By: #### L [id number] ####[facility] ([facility])[address] [place] [address] Glucose [Mass/Vol] 169 mg/dL High 70-105 [facility] Comment on above: Order Comment: Waive d Testing in the ED is performed under the ED CLIA certificate #[id number]. Result Comment: [email or web address] Performed By: #### L [id number] #### [facility] ([facility]) [address] [place] [address] Glucose [Mass/Vol] 242 mg/dL High 70-105 [facility] Comment on above: Order Comment: Waive d Testing in the ED is performed under the ED CLIA certificate #[id number]. Result Comment: [email or web address] Performed By: #### L [id number] #### [facility] ([facility]) [address] [place] [address] 30on 10-06-2023 30 The patient is Moderately Stable - Low risk of patient condition declining or worsening The patient's goals for the shift include rest The clinical goals for the shift include comfort/vss Problem: Pain - Adult Goal: Verbalizes/displays adequate comfort level or baseline comfort level Outcome: Progressing Problem: Safety - Adult Goal: Free from fall injury Outcome: Progressing Flowsheets (Taken 10/06/20231999) Free from fall injury: Assess patient frequently for physical needs Identify cognitive and physical deficits and behaviors that affect risk of falls [place] fall precautions as indicated by assessment Educate patient/family on patient safety, including physical limitations Instruct patient to call for assistance with activity based on assessment Modify environment to reduce risk of injury Consider OT/PT consult to assist with strengthening/mobility Problem: Discharge Planning Goal: Discharge to home or other facility with appropriate resources Outcome: Progressing Flowsheets (Taken 10/06/20231929) Discharge to home or other facility with appropriate resources: Identify barriers to discharge with patient and caregiver Arrange for needed discharge resources and transportation as appropriate Identify discharge learning needs (meds, wound care, etc) Refer to discharge planning if patient needs post-hospital services based on physician order or complex needs related to functional status, cognitive ability or social support system Problem: Chronic Conditions and Co-morbidities Goal: Patient's chronic conditions and co-morbidity symptoms are monitored and maintained or improved Outcome: Progressing Flowsheets (Taken 10/06/20231929) Care Plan - Patient's Chronic Conditions and Co-Morbidity Symptoms are Monitored and Maintained or Improved: Monitor and assess patient's chronic conditions and comorbid symptoms for stability, deterioration, or improvement Collaborate with multidisciplinary team to address chronic and comorbid conditions and prevent exacerbation or deterioration Update acute care plan with appropriate goals if chronic or comorbid symptoms are exacerbated and prevent overall improvement and discharge Normal [facility] 30 The patient is Moderately Stable - Low risk of patient condition declining or worsening The patient's goals for the shift include rest The clinical goals for the shift include comfort/vss Normal [facility] 30 The patient is Moderately Stable - Low risk of patient condition declining or worsening The patient's goals for the shift include rest The clinical goals for the shift include comfort/vss Problem: Pain - Adult Goal: Verbalizes/displays adequate comfort level or baseline comfort level Outcome: Progressing Problem: Safety - Adult Goal: Free from fall injury Outcome: Progressing Problem: Discharge Planning Goal: Discharge to home or other facility with appropriate resources Outcome: Progressing Problem: Chronic Conditions and Co-morbidities Goal: Patient's chronic conditions and co-morbidity symptoms are monitored and maintained or improved Outcome: Progressing Normal [facility] B-TYPE NATRIURETIC PEPTIDEon 02-29-2024 Natriuretic peptide B (Bld) [Mass/Vol] 752 pg/mL High 0-100 [facility] Comment on above: Performed By: #### L [id number] #### [facility] [address] [place] [address] Natriuretic peptide B (Bld) [Mass/Vol] 711 pg/mL High 0-100 [facility] Comment on above: Performed By: #### L [id number] #### [facility] ([facility]) [address] [place] [address] BASIC METABOLIC PANELon - Anion gap [Moles/Vol] 16 mmol/L Normal 7-20 [facility] Comment on above: Performed By: #### L [id number] ####[facility] ([facility])[address] [place] [address] Calcium [Mass/Vol] 9.7 mg/dL Normal 8.6-10.3 [facility] Comment on above: Performed By: #### L [id number] ####[facility] [place] [address] Chloride [Moles/Vol] 99 mmol/L Normal 98-107 [facility] Comment on above: Performed By: #### L [id number] ####[facility] [place] [address] CO2 [Moles/Vol] 26 mmol/L Normal 21-31 [facility] Comment on above: Performed By: #### L [id number] ####[facility] [place] [address] Creatinine [Mass/Vol] 1.03 mg/dL Normal 0.70-1.30 [facility] Comment on above: Performed By: #### L [id number] ####[facility] ([facility])[address] [place] [address] GLOMERULAR FILTRATION RATE ML/MIN/1.73 SQ M.PREDICTED 88.5 mL/min/1.73m*2 Normal >60.0 [facility] Comment on above: Result Comment: The [facility]???s estimated glomerular filtration rate (eGFR) will no longer include consideration of race in its calculation. The National Kidney Foundation???s eGFR Task Force developed new recommendations for the estimation of the glomerular filtration rate in the [place] They recommend immediate implementation of the new equation refit without the race variable in all laboratories because the calculation does not include race. In addition to not including race in the calculation and reporting, it included diversity in its development, and has acceptable performance characteristics and potential consequences that do not disproportionately affect any one group of individuals. Performed By: #### L [id number] ####[facility] ([facility])[address] [place] [address] Glucose [Mass/Vol] 185 mg/dL High 70-100 [facility] Comment on above: Performed By: #### L [id number] ####[facility] ([facility])[address] [place] [address] Potassium [Moles/Vol] 4.3 mmol/L Normal 3.5-5.1 [facility] Comment on above: Performed By: #### L [id number] ####[facility] ([facility])[address] [place] [address] Sodium [Moles/Vol] 137 mmol/L Normal 136-145 [facility] Comment on above: Performed By: #### L [id number] ####[facility] ([facility])[address] [place] [address] Urea nitrogen [Mass/Vol] 22 mg/dL Normal 7-25 [facility] Comment on above: Performed By: #### L [id number] ####[facility] ([facility])[address] [place] [address] UREA NITROGEN/CREATININE (MASS RATIO) IN SER/PLAS 21.4 Normal [facility] Comment on above: Performed By: #### L [id number] ####[facility] ([facility])[address] [place] [address] Anion gap [Moles/Vol] 16 mmol/L Normal 7-20 [facility] Comment on above: Performed By: #### L [id number] #### [facility] ([facility]) [address] [place] [address] Calcium [Mass/Vol] 9.6 mg/dL Normal 8.6-10.3 [facility] Comment on above: Performed By: #### L [id number] #### [facility] ([facility] [address] [place] [address] Chloride [Moles/Vol] 99 mmol/L Normal 98-107 [facility] Comment on above: Performed By: #### L [id number] #### [facility] ([facility]) [address] [place] [address] CO2 [Moles/Vol] 26 mmol/L Normal 21-31 [facility] Comment on above: Performed By: #### L [id number] #### [facility] ([facility]) [address] [place] [address] Creatinine [Mass/Vol] 0.98 mg/dL Normal 0.70-1.30 [facility] Comment on above: Performed By: #### L [id number] #### [facility] ([facility]) [address] [place] [address] GLOMERULAR FILTRATION RATE ML/MIN/1.73 SQ M.PREDICTED 93.9 mL/min/1.73m*2 Normal >60.0 [facility] Comment on above: Result Comment: The [facility]???s estimated glomerular filtration rate (eGFR) will no longer include consideration of race in its calculation. The National Kidney Foundation???s eGFR Task Force developed new recommendations for the estimation of the glomerular filtration rate in the [place] They recommend immediate implementation of the new equation refit without the race variable in all laboratories because the calculation does not include race. In addition to not including race in the calculation and reporting, it included diversity in its development, and has acceptable performance characteristics and potential consequences that do not disproportionately affect any one group of individuals. Performed By: #### L [id number] #### [facility] ([facility] [address] [place] [address] Glucose [Mass/Vol] 176 mg/dL High 70-100 [facility] Comment on above: Performed By: #### L [id number] #### [facility] ([facility]) [address] [place] [address] Potassium [Moles/Vol] 4.3 mmol/L Normal 3.5-5.1 [facility] Comment on above: Performed By: #### L [id number] #### [facility] ([facility]) [address] [place] [address] Sodium [Moles/Vol] 137 mmol/L Normal 136-145 [facility] Comment on above: Performed By: #### L [id number] #### [facility] ([facility]) [address] [place] [address] Urea nitrogen [Mass/Vol] 22 mg/dL Normal 7-25 [facility] Comment on above: Performed By: #### L [id number] #### [facility] ([facility]) [address] [place] [address] UREA NITROGEN/CREATININE (MASS RATIO) IN SER/PLAS 22.4 Normal [facility] Comment on above: Performed By: #### L [id number] #### [facility] ([facility]) [address] [place] [address] CBC WITH AUTO DIFFERENTIALon 10-06-2023 Basophils (Bld) [#/Vol] 0.06 10*3/uL Normal 0.00-0.20 [facility] Comment on above: Performed By: #### L [id number] ####[facility] ([facility])[address] [place] [address] Basophils/100 WBC (Bld) 1.0 % Normal 0.0-1.0 [facility] Comment on above: Performed By: #### L [id number] ####[facility] ([facility])[address] [place] [address] Eosinophils (Bld) [#/Vol] 0.11 10*3/uL Normal 0.00-0.50 [facility] Comment on above: Performed By: #### L [id number] ####[facility] ([facility])[address] [place] [address] Eosinophils/100 WBC (Bld) 1.8 % Normal 0.0-6.0 [facility] Comment on above: Performed By: #### L [id number] ####[facility] ([facility])[address] [place] [address] Erythrocyte distribution width (RBC) [Ratio] 12.3 % Normal 11.5-15.0 [facility] Comment on above: Performed By: #### L [id number] ####[facility] ([facility])[address] [place] [address] ERYTHROCYTE MEAN CORPUSCULAR HEMOGLOBIN CONCENTRATION (G/DL) BY AUTOMATED 34.1 g/dL Normal 32.0-35.0 [facility] Comment on above: Performed By: #### L [id number] ####[facility] ([facility])[address] [place] [address] Hematocrit (Bld) [Volume fraction] 50.7 % Normal 39.0-55.0 [facility] Comment on above: Performed By: #### L [id number] ####[facility] ([facility])[address] [place] [address] Hemoglobin (Bld) [Mass/Vol] 17.3 g/dL High 13.0-17.0 [facility] Comment on above: Performed By: #### L [id number] ####[facility] ([facility])[address] [place] [address] Immature granulocytes (Bld) [#/Vol] 0.02 10*3/uL Normal 0.00-0.20 [facility] Comment on above: Performed By: #### L [id number] ####[facility] ([facility])[address] [place] [address] Immature granulocytes/100 WBC (Bld) 0.3 % Normal 0.0-1.0 [facility] Comment on above: Performed By: #### L [id number] ####[facility] ([facility])[address] [place] [address] Lymphocytes (Bld) [#/Vol] 1.25 10*3/uL Normal 1.20-4.00 [facility] Comment on above: Performed By: #### L [id number] ####[facility] ([facility])[address] [place] [address] Lymphocytes/100 WBC (Bld) 20.1 % Normal 20.0-45.0 [facility] Comment on above: Performed By: #### L [id number] ####[facility] ([facility])[address] [place] [address] MCH (RBC) [Entitic mass] 34.7 pg High 27.0-33.0 [facility] Comment on above: Performed By: #### L [id number] ####[facility] ([facility])[address] [place] [address] MCV (RBC) [Entitic vol] 101.6 fL High 82.0-98.0 [facility] Comment on above: Performed By: #### L [id number] ####[facility] ([facility])[address] [place] [address] Monocytes (Bld) [#/Vol] 0.75 10*3/uL Normal 0.10-1.00 [facility] Comment on above: Performed By: #### L [id number] ####[facility] ([facility])[address] [place] [address] Monocytes/100 WBC (Bld) 12.0 % Normal 5.0-12.0 [facility] Comment on above: Performed By: #### L [id number] ####[facility] ([facility])[address] [place] [address] Neutrophils (Bld) [#/Vol] 4.04 10*3/uL Normal 1.60-7.60 [facility] Comment on above: Performed By: #### L [id number] ####[facility] ([facility])[address] [place] [address] Neutrophils/100 WBC (Bld) 64.8 % Normal 40.0-72.0 [facility] Comment on above: Performed By: #### L [id number] ####[facility] ([facility])[address] [place] [address] NRBC (PER 100 WBCS) BY AUTOMATED COUNT 0.0 % Normal 0 [facility] Comment on above: Performed By: #### L [id number] ####[facility] ([facility])[address] [place] [address] PLATELETS (10*3/UL) IN BLOOD AUTOMATED COUNT 219 10*3/uL Normal 150-400 [facility] Comment on above: Performed By: #### L [id number] ####[facility] ([facility])[address] [place] [address] RBC (Bld) [#/Vol] 4.99 10*6/uL Normal 4.20-5.70 [facility] Comment on above: Performed By: #### L [id number] ####[facility] ([facility])[address] [place] [address] WBC (Bld) [#/Vol] 6.23 10*3/uL Normal 4.00-10.60 [facility] Comment on above: Performed By: #### L [id number] ####[facility] ([facility])[address] [place] [address] CONSULTon 10-06-2023 CONSULT -- Attestation signed by Carlos Avendano MD at 10/06/2023 4:20 PM I personally saw and examined the patient on the same date of service as resident Dr. Wiley I discussed the findings and therapeutic plan with the resident Dr. Wiley. I agree with the documentation, except for any edits/updates below. Teaching Physician's Revisions: Patient with multiple coronary artery disease risk factors including hypertension, diabetes, hyperlipidemia and tobacco use. Presented with chest pain and shortness of breath and found to have acute systolic heart failure with decreased EF in addition to chest pain. Based on his multiple risk factors he is high risk and will going to proceed with right and left heart is ischemia and hemodynamic. Cardiology Consult Note Reason for Consult: New onset heart failure HPI: Tera Roberto is a 48 y.o. male with a PMH significant for T2DM, HTN, obesity, LARS, tobacco dependence intially presents to [facility] after sudden onset SOB. He woke up from sleep to use the restroom, while there he felt nauseous and vomited then he felt sudden onset chest tightness/pressure and SOB. He went to the hospital and required oxygen therapy initially. Labs were unremarkable. EKG was unremarkable. Echo was done and showed reduced EF 35-40% as well as apical akinesia concerning for [place] cardiomyopathy. Patient was transferred to [facility] for further evalaution. Upon arrival, patient is doing good, no acute complaints. Cardiology ROS: GENERAL: Denies fever, chills, night sweats, weight loss. CARDIOVASCULAR: Denies chest pain, exertional dyspnea, orthopnea/PND, lower extremity edema, palpitations, lightheadedness/dizzin ess, syncope. RESPIRATORY: Denies SOB, coughing, wheezing GI: Denies abdominal pain, nausea/vomiting. PSYCH: Denies anxiety. Past Medical History He has no past medical history on file. Surgical History He has no past surgical history on file. Social History He reports that he has been smoking cigarettes. He has a 5.00 pack-year smoking history. He has never used smokeless tobacco. No history on file for alcohol use and drug use. Family History No family history on file. Allergies Patient has no known allergies. Medications Medications Prior to Admission Medication Sig Dispense Refill Last Dose empagliflozin (Jardiance) 25 mg Take 25 mg by mouth in the morning. glimepiride (Amaryl) 4 mg tablet Take 8 mg by mouth before breakfast. pioglitazone (Actos) 30 mg tablet Take 30 mg by mouth in the morning. simvastatin (Zocor) 20 mg tablet Take 20 mg by mouth at bedtime. venlafaxine XR (Effexor-XR) 75 mg 24 hr capsule Take 75 mg by mouth in the morning. Do not crush or chew. Last Recorded Vitals Patient Vitals for the past 24 hrs: BP Temp Temp src Pulse Resp SpO2 Height Weight 10/06/23 0812 (!) 153/104 36.7 ???C (98 ???F) Temporal 92 19 95 % -- -- 10/06/23 0600 -- -- -- -- -- -- -- 116 kg (255 lb 6.4 oz) 10/06/23 0400 (!) 151/102 36.6 ???C (97.9 ???F) Temporal 93 18 95 % -- -- 10/05/23 2340 (!) 143/100 36.8 ???C (98.2 ???F) Temporal 102 17 96 % -- -- 10/05/232032 (!) 150/97 36.7 ???C (98 ???F) Temporal 96 24 97 % -- -- 10/05/231999 -- -- -- -- -- -- 1.753 m (5' 9 ) 118 kg (260 lb 6.4 oz) Physical Examination: GENERAL: AOx3, in no acute distress. HEAD: Atraumatic, normocephalic. EYES: YURIDIA, EOMI. NECK: No JVD present. CARDIAC: RRR. No murmur, rubs, or gallops. RESPIRATORY: CTAB, no increased effort of breathing. ABDOMEN: Soft, nontender, nondistended. EXTREMITIES: No lower extremity edema, peripheral pulses are 2+ bilaterally. NEURO: No focal deficits Relevant Lab Results Encounter Date: 10/05/23 ECG 12 lead Result Value Ventricular Rate 88 Atrial Rate 88 SC Interval 162 QRS DURATION 84 QT Interval 404 QTC CALCULATION(BAZETT) 488 P [place] 50 R-[place] 0 T Wave [place] 61 Impression Sinus rhythm with occasional Premature ventricular complexes Minimal voltage criteria for LVH, may be normal variant ( R in aVL ) Prolonged QT Abnormal ECG No previous ECGs available No results found for: CKTOTAL , CKMB , CKMBINDEX , TROPONINI No echocardiogram results found for the past 12 months No nuclear medicine results found for the past 12 months Relevant Imaging Results XR chest 1 view Narrative: XR CHEST 1 VIEW 10/06/2023 8:08 AM CLINICAL INDICATIONS: Cough. Tobacco use COMPARISON: None FINDINGS: Single AP upright image was obtained Impression: Cardiac silhouette is mildly enlarged. No other congestive features are noted however. There is no large pleural effusion. No cephalization of vessels. No focal airspace disease or infiltrate is appreciated. No acute pulmonary process is noted Electronically signed: Carmen Trujillo. ECG 12 l (more content not included)... Normal [facility] CONSULT Clinical Nutrition Assessment Name: Tera Roberto Date: 1975 Date of Visit: 10/06/23 Reason for assessment: MD referral DM/HF consult Information obtained from: patient, medical record, and nursing Medical History No chief complaint on file. No past medical history on file. No past surgical history on file. Current Outpatient Medications Medication Instructions empagliflozin (JARDIANCE) 25 mg, oral, Daily glimepiride (AMARYL) 8 mg, oral, Daily before breakfast pioglitazone (ACTOS) 30 mg, oral, Daily simvastatin (ZOCOR) 20 mg, oral, Nightly venlafaxine XR (EFFEXOR-XR) 75 mg, oral, Daily, Do not crush or chew. No Known Allergies Nutrition Problems: Appetite: good Physical findings: obese Skin Integrity: intact Other: Transfer from outside hospital after c/o SOB. Had echo that showed [place] CM and EF 35-40% Diuresis- IV lasix BID. Results from last 7 days Lab Units 10/06/23 0711 10/05/237 10/05/232038 POCT GLUCOSE mg/dL 183* 229* -- HEMOGLOBIN g/dL -- -- 16.7 WBC AUTO 10*3/uL -- -- 6.46 A1C 8% 10/05/23 I/O: Intake/Output Summary (Last 24 hours) at 10/06/2023 0841 Last data filed at 10/06/2023 0500 Gross per 24 hour Intake 770 ml Output 1950 ml Net -1180 ml Current Medications: aspirin, 81 mg, oral, Daily with breakfast atorvastatin, 80 mg, oral, Nightly carvedilol, 6.25 mg, oral, BID enoxaparin, 40 mg, subcutaneous, Daily folic acid, 1 mg, intravenous, Daily furosemide, 20 mg, intravenous, q12h insulin lispro, 0-13 Units, subcutaneous, With meals & nightly losartan, 50 mg, oral, Daily pantoprazole, 40 mg, oral, BID AC thiamine, 500 mg, intravenous, Daily Anthropometrics: Height: 175.3 cm (5' 9 ) Weight: 116 kg (255 lb 6.4 oz) Body mass index is 37.72 kg/m???. Wt Readings from Last 7 Encounters: 10/06/23 116 kg (255 lb 6.4 oz) No weight history per records, no prior admissions. IBW: 72.7 kg UBW: 118.2 kg Nutrition Assessment: Diet History: lives at home. Reports does not follow any diet regimen for heart failure or diabetes. States that he does not eat out and mainly all his meals are made at home from fresh ingredients. Does not report adding salt to any foods, usually uses salt free seasonings. Denies frozen or canned foods as well. Does report drinking gatorade zero. Pt does admit to cooking with and using butter frequently or frying foods. Has a scale at home, not weighing self regularly. Does not check his blood sugars at home, reports having a meter and strips. Denies drinking sugary beverages. Mainly water and gatorade zero. Denies candy or sweets. May over eat carbohydrate sources like pasta. Nutrition Recommendations: Resume diet as medically appropriate, goal of HH and male diabetic diet Expect good intakes as diet advanced. Reviewed HF diet education. Encouraged low fat cooking techniques and continuing with sodium free seasonings. Recommend eliminating electrolyte drinks as these often have added sodium. Encouraged daily weights Reviewed DM diet guidelines. Encouraged 60 grams of carbohydrates per meal. Nutrition label reading. Discussed monitoring blood sugars at home, may benefit from a CGM if possible. Encouraged to discuss with PCP. Continue to monitor nutritional status. Goals: Nutrition Goals: intake > 75% meals and compliance w/ MNT Tre Elias RD (Please reach out with questions and contact the dietitian via Hull chat 8A-4P Tuesday-Tuesday. Or call the dietitian's office at extension [phone]. For weekends/holidays, the dietitian's can be reached by paging [phone] from 9A-3P. Unable to be reached via [email or web address] chat on Tuesday & .) [facility] HPon 10-06-2023 HP -- Attestation signed by Carlos Avendano MD at 10/06/2023 4:20 PM I personally saw and examined the patient on the same date of service as resident Dr. Wiley I discussed the findings and therapeutic plan with the resident Dr. Wiley. I agree with the documentation, except for any edits/updates below. Teaching Physician's Revisions: Patient with multiple coronary artery disease risk factors including hypertension, diabetes, hyperlipidemia and tobacco use. Presented with chest pain and shortness of breath and found to have acute systolic heart failure with decreased EF in addition to chest pain. Based on his multiple risk factors he is high risk and will going to proceed with right and left heart is ischemia and hemodynamic. Cardiology Consult Note Reason for Consult: New onset heart failure HPI: Tera Roberto is a 48 y.o. male with a PMH significant for T2DM, HTN, obesity, LARS, tobacco dependence intially presents to [facility] after sudden onset SOB. He woke up from sleep to use the restroom, while there he felt nauseous and vomited then he felt sudden onset chest tightness/pressure and SOB. He went to the hospital and required oxygen therapy initially. Labs were unremarkable. EKG was unremarkable. Echo was done and showed reduced EF 35-40% as well as apical akinesia concerning for takotsubo cardiomyopathy. Patient was transferred to [facility] for further evalaution. Upon arrival, patient is doing good, no acute complaints. Cardiology ROS: GENERAL: Denies fever, chills, night sweats, weight loss. CARDIOVASCULAR: Denies chest pain, exertional dyspnea, orthopnea/PND, lower extremity edema, palpitations, lightheadedness/dizzin ess, syncope. RESPIRATORY: Denies SOB, coughing, wheezing GI: Denies abdominal pain, nausea/vomiting. PSYCH: Denies anxiety. Past Medical History He has no past medical history on file. Surgical History He has no past surgical history on file. Social History He reports that he has been smoking cigarettes. He has a 5.00 pack-year smoking history. He has never used smokeless tobacco. No history on file for alcohol use and drug use. Family History No family history on file. Allergies Patient has no known allergies. Medications Medications Prior to Admission Medication Sig Dispense Refill Last Dose empagliflozin (Jardiance) 25 mg Take 25 mg by mouth in the morning. glimepiride (Amaryl) 4 mg tablet Take 8 mg by mouth before breakfast. pioglitazone (Actos) 30 mg tablet Take 30 mg by mouth in the morning. simvastatin (Zocor) 20 mg tablet Take 20 mg by mouth at bedtime. venlafaxine XR (Effexor-XR) 75 mg 24 hr capsule Take 75 mg by mouth in the morning. Do not crush or chew. Last Recorded Vitals Patient Vitals for the past 24 hrs: BP Temp Temp src Pulse Resp SpO2 Height Weight 10/06/23 0812 (!) 153/104 36.7 ???C (98 ???F) Temporal 92 19 95 % -- -- 10/06/23 0600 -- -- -- -- -- -- -- 116 kg (255 lb 6.4 oz) 10/06/23 0400 (!) 151/102 36.6 ???C (97.9 ???F) Temporal 93 18 95 % -- -- 10/05/23 2340 (!) 143/100 36.8 ???C (98.2 ???F) Temporal 102 17 96 % -- -- 10/05/232032 (!) 150/97 36.7 ???C (98 ???F) Temporal 96 24 97 % -- -- 10/05/231999 -- -- -- -- -- -- 1.753 m (5' 9 ) 118 kg (260 lb 6.4 oz) Physical Examination: GENERAL: AOx3, in no acute distress. HEAD: Atraumatic, normocephalic. EYES: YURIDIA, EOMI. NECK: No JVD present. CARDIAC: RRR. No murmur, rubs, or gallops. RESPIRATORY: CTAB, no increased effort of breathing. ABDOMEN: Soft, nontender, nondistended. EXTREMITIES: No lower extremity edema, peripheral pulses are 2+ bilaterally. NEURO: No focal deficits Relevant Lab Results Encounter Date: 10/05/23 ECG 12 lead Result Value Ventricular Rate 88 Atrial Rate 88 SC Interval 162 QRS DURATION 84 QT Interval 404 QTC CALCULATION(BAZETT) 488 P [place] 50 R-[place] 0 T Wave [place] 61 Impression Sinus rhythm with occasional Premature ventricular complexes Minimal voltage criteria for LVH, may be normal variant ( R in aVL ) Prolonged QT Abnormal ECG No previous ECGs available No results found for: CKTOTAL , CKMB , CKMBINDEX , TROPONINI No echocardiogram results found for the past 12 months No nuclear medicine results found for the past 12 months Relevant Imaging Results XR chest 1 view Narrative: XR CHEST 1 VIEW 10/06/2023 8:08 AM CLINICAL INDICATIONS: Cough. Tobacco use COMPARISON: None FINDINGS: Single AP upright image was obtained Impression: Cardiac silhouette is mildly enlarged. No other congestive features are noted however. There is no large pleural effusion. No cephalization of vessels. No focal airspace disease or infiltrate is appreciated. No acute pulmonary process is noted Electronically signed: Carmen Trujillo. ECG 12 l (more content not included)... Normal [facility] LEGIONELLA ANTIGEN, URINEon 10-06-2023 LEGIONELLA AG, UR Negative Normal NEG [facility] Comment on above: Result Comment: L. p neumophila serogroup 1 antigen not detected. A negative result does not exclude infection with Leginella pnemophila serogroup 1 nor does it rule out other microbial-caused respiratory infections of disease caused by other serogroups of Legionella pneumophila. Test Performed by [facility] [place] [address] - [place] 10/06/2023 20:50 Performed By: #### L [id number] ####[facility] [id number] [place] [address] LIPID PANELon 10-06-2023 CHOL/HDL 4.5 mg/dL Normal [facility] Comment on above: Performed By: #### L [id number] #### [facility] ([facility]) [address] [place] [address] Cholesterol [Mass/Vol] 229 mg/dL High 120-200 [facility] Comment on above: Performed By: #### L [id number] #### [facility] ([facility]) [address] [place] [address] CHOLESTEROL IN LDL (MG/DL) IN SERUM OR PLASMA BY CALCULATION Normal [facility] Comment on above: Result Comment: Calc ulated LDL invalid, triglycerides >400 mg/dl Performed By: #### L [id number] #### [facility] ([facility]) [address] [place] [address] Magnesium [Mass/Vol] 469 mg/dL High 40-149 [facility] Comment on above: Result Comment: TRIG LYCERIDE REFERENCE RANGE: 20 YEARS AND OLDER CARDIOVASCULAR RISK LESS THAN 150 mg/dL LOW RISK 150 TO 199 mg/dL BORDERLINE RISK 200 mg/dL AND GREATER HIGH RISK Performed By: #### L [id number] #### [facility] ([facility]) [address] [place] [address] Magnesium [Mass/Vol] 51 mg/dL Normal 23-92 [facility] Comment on above: Performed By: #### L [id number] #### [facility] ([facility]) [address] [place] [address] NON HDL CHOL. (LDL+VLDL) 178 Normal [facility] Comment on above: Performed By: #### L [id number] #### [facility] ([facility] [address] [place] [address] TOTAL VLDL-C 94 mg/dL High 0-40 [facility] Comment on above: Performed By: #### L [id number] #### [facility] ([facility]) [address] [place] [address] POCT GLUCOSE METER UNSOLICIT ED RESULTSon 10-06-2023 Glucose [Mass/Vol] 276 mg/dL High 70-105 [facility] Comment on above: Order Comment: Waive d Testing in the ED is performed under the ED CLIA certificate #[id number]. Result Comment: [email or web address] Performed By: #### L [id number] #### [facility] ([facility]) [address] [place] [address] Glucose [Mass/Vol] 187 mg/dL High 70-105 [facility] Comment on above: Order Comment: Waive d Testing in the ED is performed under the ED CLIA certificate #[id number]. Result Comment: [email or web address] Performed By: #### L [id number] #### [facility] ([facility]) [address] [place] [address] Glucose [Mass/Vol] 183 mg/dL High 70-105 [facility] Comment on above: Order Comment: Waive d Testing in the ED is performed under the ED CLIA certificate #[id number]. Result Comment: [email or web address] Performed By: #### L [id number] #### [facility] ([facility]) [address] [place] [address] Glucose [Mass/Vol] 183 mg/dL High 70-105 [facility] Comment on above: Order Comment: Waive d Testing in the ED is performed under the ED CLIA certificate #[id number]. Result Comment: [email or web address] Performed By: #### L [id number] ####[facility] ([facility])[address] [address] STREP PNEUMONIAE ANTIGEN, UR INEon 10-06-2023 STREPTOCOCCUS PNEUMONIAE AG PRESENCE IN URINE Negative Normal Negative [facility] Comment on above: Performed By: #### L [id number] ####[facility] ([facility])[address] [place] [address] TROPONIN Ion 10-06-2023 Troponin I.cardiac [Mass/Vol] 0.03 ng/mL Normal 0.00-0.04 [facility] Comment on above: Performed By: #### L [id number] ####[facility] ([facility])[address] [place] [address] CBCon 10-05-2023 Erythrocyte distribution width (RBC) [Ratio] 12.3 % Normal 11.5-15.0 [facility] Comment on above: Performed By: #### L [id number] #### [facility] ([facility]) [address] [place] [address] ERYTHROCYTE MEAN CORPUSCULAR HEMOGLOBIN CONCENTRATION (G/DL) BY AUTOMATED 33.8 g/dL Normal 32.0-35.0 [facility] Comment on above: Performed By: #### L [id number] #### [facility] ([facility]) [address] [place] [address] Hematocrit (Bld) [Volume fraction] 49.4 % Normal 39.0-55.0 [facility] Comment on above: Performed By: #### L [id number] #### [facility] ([facility]) [address] [place] [address] Hemoglobin (Bld) [Mass/Vol] 16.7 g/dL Normal 13.0-17.0 [facility] Comment on above: Performed By: #### L [id number] #### [facility] ([facility]) [address] [facility] [address] IMMATURE PLATELET FRACTION % 11.1 % High 0.8-6.3 [facility] Comment on above: Performed By: #### L [id number] #### [facility] ([facility]) [address] [place] [address] MCH (RBC) [Entitic mass] 34.9 pg High 27.0-33.0 [facility] Comment on above: Performed By: #### L [id number] #### [facility] ([facility]) [address] [place] [address] MCV (RBC) [Entitic vol] 103.3 fL High 82.0-98.0 [facility] Comment on above: Performed By: #### L [id number] #### [facility] ([facility]) [address] [place] [address] PLATELETS (10*3/UL) IN BLOOD AUTOMATED COUNT 149 10*3/uL Low 150-400 [facility] Comment on above: Performed By: #### L [id number] #### [facility] ([facility]) [address] [place] [address] RBC (Bld) [#/Vol] 4.78 10*6/uL Normal 4.20-5.70 [facility] Comment on above: Performed By: #### L [id number] #### [facility] ([facility]) [address] [place] [address] WBC (Bld) [#/Vol] 6.46 10*3/uL Normal 4.00-10.60 [facility] Comment on above: Performed By: #### L [id number] #### [facility] ([facility]) [address] [place] [address] HEMOGLOBIN A1Con 10-05-2023 Glucose [Mass/Vol] 183 mg/dL Normal [facility] Comment on above: Performed By: #### L [id number] #### [facility] ([facility]) [address] [place] [address] HbA1c (Bld) [Mass fraction] 8.0 % High 4.0-6.0 [facility] Comment on above: Performed By: #### L [id number] #### [facility] ([facility]) [address] [place] [address] POCT GLUCOSE METER UNSOLICIT ED RESULTSon 10-05-2023 Glucose [Mass/Vol] 229 mg/dL High 70-105 [facility] Comment on above: Order Comment: Waive d Testing in the ED is performed under the ED CLIA certificate #[id number]. Result Comment: [email or web address] Performed By: #### L [id number] ####[facility] ([facility])[address] [place] [address] Covid-19 PCR ([facility])on 07-09 SARS-CoV-2 (COVID-19) RNA NIXON+probe Ql (Unsp spec) Detected Critically abnormal NOT DETECTED [facility] Comment on above: Result Comment: This test is not yet approved or cleared by the [place] FDA. When there are no FDA-approved or cleared tests available, and other criteria are met, FDA can make tests available under an emergency access mechanism called an Emergency Use Authorization (EUA). The EUA for this test is supported by the Senior Game Advisor of Health and Human Service's (HHS's) declaration that circumstances exist to justify the emergency use of in vitro diagnostics for the detection and/or diagnosis of the virus that causes COVID-19. This EUA will remain in effect (meaning this test can be used) for the duration of the COVID-19 declaration justifying emergency of IVDs, unless it is terminated or revoked by FDA (after which the test may no longer be used). Performed By: #### A 1C #### [facility] [address] [place] [address] Dr. Bridger Aggarwal INFLUENZA A AND B AGon 08-03 [facility] Normal [facility] Comment on above: Result Comment: Nega tive for Flu A protein angiten. Infection due to Flu A cannot be ruled out. Flu A angiten in the sample may be below the detection limit of the test. Performed By: #### I NFLUAB #### [facility] [address] [place] [address] Dr. Bridger Aggarwal INFLUBANNER SEE BELOW Normal [facility] Comment on above: Result Comment: Nega tive for Flu B protein antigen. Infection due to Flu B cannot be ruled out. Flu B antigen in the sample may be below the detection limit of the test. Performed By: #### I NFLUAB #### [facility] [address] [address] [address] Bridger Aggarwal INFLUENZA A AG Negative Normal NEGATIVE SEE COMMENT [facility] Comment on above: Performed By: #### I NFLUAB #### [facility] [address] [place] [address] Dr. Bridger Aggarwal INFLUENZA B AG Negative Normal NEGATIVE SEE COMMENT [facility] Comment on above: Performed By: #### I NFLUAB #### [facility] [address] [place] [address] Dr. Bridger Aggarwal INTERNAL CONTROLS Within Normal Limits Normal Wi thin Normal Limits [facility] Comment on above: Performed By: #### I NFLUAB #### [facility] [address] [address] [address] Bridger Aggarwal CULTURE WOUNDon 04-23-2022 CULTURE WOUND Isolate 1 Staphylococcus haemolyticus Heavy growth of ORGANISM 1 Staphylococcus haemolyticus ANTIBIOTIC M.I.C RX STATUS Beta-Lactamase Pos POS F Cefoxitin Screen Neg NEG F Benzylpenicillin >=0.5 R F Gentamicin <=0.5 S F Ciprofloxacin <=0.5 S F Levofloxacin <=0.12 S F Moxifloxacin <=0.25 S F Inducible Clindamycin Resistance Neg NEG F Erythromycin <=0.25 S F Clindamycin <=0.25 S F Quinupristin/Dalfopris tin <=0.25 S F Linezolid 1 S F Vancomycin 1 S F Tetracycline <=1 S F Rifampicin <=0.5 S F Trimethoprim/Sulfameth oxazole <=10 S F Oxacillin <=0.25 S F Normal [facility] Comment on above: Performed By: #### A 1C #### [facility] [address] [place] [address] Dr. Bridger Aggarwal Covid-19 PCR ([facility])on 03-09 SARS-CoV-2 (COVID-19) RNA NIXON+probe Ql (Unsp spec) Not detected Normal NOT DETECTED [facility] Comment on above: Result Comment: This test is not yet approved or cleared by the [place] FDA. When there are no FDA-approved or cleared tests available, and other criteria are met, FDA can make tests available under an emergency access mechanism called an Emergency Use Authorization (EUA). The EUA for this test is supported by the Senior Game Advisor of Health and Human Service's (HHS's) declaration that circumstances exist to justify the emergency use of in vitro diagnostics for the detection and/or diagnosis of the virus that causes COVID-19. This EUA will remain in effect (meaning this test can be used) for the duration of the COVID-19 declaration justifying emergency of IVDs, unless it is terminated or revoked by FDA (after which the test may no longer be used). When diagnostic testing is negative, the possibility of a false negative should be considered in the context of a patient's recent exposures and the presence of clinical signs and symptoms consistent with SARS-CoV-2. Performed By: #### A 1C #### [facility] [address] [place] [address] Dr. Bridger Aggarwal Covid-19 PCR ([facility])on SARS-CoV-2 (COVID-19) RNA NIXON+probe Ql (Unsp spec) Not detected Normal NOT DETECTED [facility] Comment on above: Result Comment: When diagnostic testing is negative, the possibility of a false negative should be considered in the context of a patient's recent exposures and the presence of clinical signs and symptoms consistent with SARS-CoV-2. This test is not yet approved or cleared by the [place] FDA. When there are no FDA-approved or cleared tests available, and other criteria are met, FDA can make tests available under an emergency access mechanism called an Emergency Use Authorization (EUA). The EUA for this test is supported by the [place] of Health and Human Service's declaration that circumstances exist to justify the emergency use of in vitro diagnostics for the detection and/or diagnosis of the virus that causes COVID-19. This EUA will remain in effect for the duration of the COVID-19 declaration justifying emergency of IVDs, unless it is terminated or revoked by the FDA (after which the test may no longer be used). Performed By: #### A 1C #### [facility] [address] [place] [address] Dr. Bridger Aggarwal T4 LABCORPon 01-01-2022 T4 [Mass/Vol] 4.7 ug/dL Normal 4.5-12.0 [facility] Comment on above: Performed By: #### A 1C #### [facility] [address] [place] [address] Dr. Bridger Aggarwal FREE THYROXINE INDEX T7on FTI 1.69 Normal 1.30-4.50 [facility] Comment on above: Performed By: #### A 1C #### [facility] [address] [place] [address] Dr. Bridger Aggarwal T3U 36.0 % Normal 33.0-40.0 [facility] Comment on above: Performed By: #### A 1C #### [facility] [address] [place] [address] Dr. Bridger Aggarwal T4 [Mass/Vol] 4.70 ug/dL Normal 4.50-12.10 [facility] Comment on above: Performed By: #### A 1C #### [facility] [address] [place] [address] Dr. Bridger Aggarwal TSHon 12-28-2021 TSH 0.969 uIU/mL Normal 0.358-3.740 [facility] Comment on above: Performed By: #### A 1C #### [facility] [address] [place] [address] Dr. Bridger Aggarwal TSH RANGE SEE BELOW Normal [facility] Comment on above: Result Comment: <0.3 4 UIU/ml HYPERTHYROID 0.34-5.60 UIU/ml EUTHYROID >5.60 UIU/ml HYPOTHYROID Performed By: #### A 1C #### [facility] [address] [place] [address] Dr. Bridger Aggarwal CBC AUTO DIFFon 12-26-2021 BASO # 0.0 103/ul Normal 0.0-0.1 [facility] Comment on above: Performed By: #### C BC #### [facility] [address] [place] [address] Dr. Bridger Aggarwal Basophils/100 WBC (Bld) 0.4 % Normal 0.2-2.0 [facility] Comment on above: Performed By: #### C BC #### [facility] [address] [place] [address] Dr. Bridger Aggarwal EO # 0.1 103/ul Normal 0.0-0.7 [facility] Comment on above: Performed By: #### C BC #### [facility] [address] [place] [address] Dr. Bridger Aggarwal Eosinophils/100 WBC (Bld) 0.6 % Critically low 0.9-7.0 [facility] Comment on above: Performed By: #### C BC #### [facility] [address] [place] [address] Dr. Bridger Aggarwal Erythrocyte distribution width (RBC) [Ratio] 12.0 % Normal 11.0-15.0 [facility] Comment on above: Performed By: #### C BC #### [facility] [address] [place] [address] Dr. Bridger Aggarwal Hematocrit (Bld) [Volume fraction] 44.9 % Normal 42.0-54.0 [facility] Comment on above: Performed By: #### C BC #### [facility] [address] [place] [address] Dr. Bridger Aggarwal Hemoglobin (Bld) [Mass/Vol] 15.4 g/dL Normal 14.0-18.0 [facility] Comment on above: Performed By: #### C BC #### [facility] [address] [place] [address] Dr. Bridger Aggarwal IG # 0.03 10e3/ul Normal 0.00-0.03 [facility] Comment on above: Performed By: #### C BC #### [facility] [facility] [address] [place] [address] Dr. Bridger Aggarwal IG % 0.3 % Normal 0.0-0.5 [facility] Comment on above: Performed By: #### C BC #### [facility] [address] [place] [address] Dr. Bridger Aggarwal LYMPH # 1.5 103/ul Normal 1.2-3.8 [facility] Comment on above: Performed By: #### C BC #### [facility] [address] [place] [address] Dr. Bridger Aggarwal Lymphocytes/100 WBC (Bld) 14.2 % Critically low 20.5-60.0 [facility] Comment on above: Performed By: #### C BC #### [facility] [address] [place] [address] Dr. Bridger Aggarwal MANUAL DIFF REQ NO Normal [facility] Comment on above: Performed By: #### C BC #### [facility] [address] [place] [address] Dr. Bridger Aggarwal MCH (RBC) [Entitic mass] 34.2 pg Critically high 25.9-34.0 [facility] Comment on above: Performed By: #### C BC #### [facility] [address] [place] [address] Dr. Bridger Aggarwal MCHC (RBC) [Mass/Vol] 34.3 g/dL Normal 29.9-35.2 [facility] Comment on above: Performed By: #### C BC #### [facility] [address] [place] [address] Dr. Bridger Aggarwal MCV (RBC) [Entitic vol] 99.8 fL Critically high 80.0-94.0 [facility] Comment on above: Performed By: #### C BC #### [facility] [address] [place] [address] Dr. Bridger Aggarwal MONO # 0.7 103/ul Normal 0.3-0.8 [facility] Comment on above: Performed By: #### C BC #### [facility] [address] [place] [address] Dr. Bridger Aggarwal Monocytes/100 WBC (Bld) 6.3 % Normal 1.7-12.0 [facility] Comment on above: Performed By: #### C BC #### [facility] [address] [place] [address] Dr. Bridegr Aggarwal NEUT # 8.2 103/ul Critically high 1.4-6.5 [facility] Comment on above: Performed By: #### C BC #### [facility] [address] [place] [address] Dr. Bridger Aggarwal Neutrophils/100 WBC (Bld) 78.2 % Critically high 43.0-75.0 [facility] Comment on above: Performed By: #### C BC #### [facility] [address] [address] [address] Bridger Aggarwal Platelet mean volume (Bld) [Entitic vol] 9.6 fL Normal 9.5-13.5 [facility] Comment on above: Performed By: #### C BC #### [facility] [id number] Bridger Aggarwal PLT 247 103/ul Normal 150-450 [facility] Comment on above: Performed By: #### C BC #### [facility] [address] [address] [address] Bridger Aggarwal RBC 4.50 106/ul Critically low 4.70-6.10 [facility] Comment on above: Performed By: #### C BC #### [facility] [address] [address] [address] Bridger Aggarwal WBC 10.5 103/ul Normal 4.0-11.0 [facility] Comment on above: Performed By: #### C BC #### [facility] [address] [address] [address] HEAD WO CONon 12-26-2021 CT HEAD WO CON EXAMINATION: CT HEAD WO CON HISTORY: Dizziness , lightheaded, loss of balance, posterior neck pain, decreased energy COMPARISON: No relevant comparison available. TECHNIQUE: Axial CT images were obtained without IV contrast. Dose reduction techniques were achieved by using automated exposure control and/or adjustment of mA and/or kV according to patient size and/or use of iterative reconstruction technique. FINDINGS: BRAIN: Old lacunar infarction within left basal ganglia. No edema, hemorrhage, mass, acute infarction, or inappropriate atrophy. CSF SPACES: No hydrocephalus, subarachnoid hemorrhage, or mass. Appropriate for age. SKULL: No fracture, mass, or other significant visible lesion. SINUSES: No significant mucosal thickening or fluid on the limited views. ORBITS: No appreciable abnormality on the limited views. OTHER: Negative IMPRESSION: 1. No acute or suspicious findings to account for patient's symptoms. 2. Left basal ganglia prominent perivascular space versus old lacunar infarction. Given patient's age this likely represents an incidental prominent perivascular space. Electronically authenticated by: JACOB LALA Date: 2021-12-26 13:30 Normal [facility] PROF CHEM 8 (BAS METB)on Anion gap [Moles/Vol] 17.1 mmol/L Normal [facility] Comment on above: Performed By: #### A 1C #### [facility] [address] [address] [address] Bridger Aggarwal Calcium [Mass/Vol] 9.4 mg/dL Normal 8.5-10.1 [facility] Comment on above: Performed By: #### A 1C #### [facility] [address] [address] [address] Bridger Aggarwal Chloride [Moles/Vol] 97 mmol/L Critically low 98-107 [facility] Comment on above: Performed By: #### A 1C #### [facility] [address] [place] [address] Dr. Bridger Aggarwal CO2 [Moles/Vol] 20.6 mmol/L Critically low 21.0-32.0 [facility] Comment on above: Performed By: #### A 1C #### [facility] [address] [address] [address] Bridger Aggarwal Creatinine [Mass/Vol] 0.96 mg/dL Normal 0.70-1.30 [facility] Comment on above: Performed By: #### A 1C #### [facility] [address] [address] [address] Bridger Aggarwal EGFR-AF SUDANESE >60 Normal >=60 [facility] Comment on above: Performed By: #### A 1C #### [facility] [address] [address] [address] Bridger Aggarwal EGFR-NON AF SUDANESE >60 Normal >=60 [facility] Comment on above: Performed By: #### A 1C #### [facility] [address] [address] [address] Bridger Aggarwal Glucose [Mass/Vol] 216 mg/dL Critically high 74-106 [facility] Comment on above: Performed By: #### A 1C #### [facility] [address] [address] [address] Bridger Aggarwal Potassium [Moles/Vol] 3.7 mmol/L Normal 3.5-5.1 [facility] Comment on above: Performed By: #### A 1C #### [facility] [address] [place] [address] Dr. Bridger Aggarawl Sodium [Moles/Vol] 131 mmol/L Critically low 136-145 [facility] Comment on above: Performed By: #### A 1C #### [facility] [address] [place] [address] Dr. Bridger Aggarwal Urea nitrogen [Mass/Vol] 26.0 mg/dL Critically high 7.0-18.0 [facility] Comment on above: Performed By: #### A 1C #### [facility] [address] [place] [address] Dr. Bridger Aggarwal Urea nitrogen/Creatinine [Mass ratio] 27.1 mg/mg Normal [facility] Comment on above: Performed By: #### A 1C #### [facility] [address] [place] [address] Dr. Bridger Aggarwal CBC AUTO DIFFon 12-18-2021 BASO # 0.0 103/ul Normal 0.0-0.1 [facility] Comment on above: Performed By: #### A 1C #### [facility] [address] [place] [address] Dr. Bridger Aggarwal Basophils/100 WBC (Bld) 0.4 % Normal 0.2-2.0 [facility] Comment on above: Performed By: #### A 1C #### [facility] [address] [place] [address] Dr. Bridger Aggarwal EO # 0.1 103/ul Normal 0.0-0.7 [facility] Comment on above: Performed By: #### A 1C #### [facility] [address] [place] [address] Dr. Bridger Aggarwal Eosinophils/100 WBC (Bld) 1.2 % Normal 0.9-7.0 [facility] Comment on above: Performed By: #### A 1C #### [facility] [address] [place] [address] Dr. Bridger Aggarwal Erythrocyte distribution width (RBC) [Ratio] 12.5 % Normal 11.0-15.0 [facility] Comment on above: Performed By: #### A 1C #### [facility] [address] [place] [address] Dr. Bridger Aggarwal Hematocrit (Bld) [Volume fraction] 45.9 % Normal 42.0-54.0 [facility] Comment on above: Performed By: #### A 1C #### [facility] [address] [place] [address] Dr. Bridger Aggarwal Hemoglobin (Bld) [Mass/Vol] 15.8 g/dL Normal 14.0-18.0 [facility] Comment on above: Performed By: #### A 1C #### [facility] [address] [place] [address] Dr. Bridger Aggarwal IG # 0.04 10e3/ul Critically high 0.00-0.03 [facility] Comment on above: Performed By: #### A 1C #### [facility] [address] [place] [address] Dr. Bridger Aggarwal IG % 0.5 % Normal 0.0-0.5 [facility] Comment on above: Performed By: #### A 1C #### [facility] [address] [place] [address] Dr. Bridger Aggarwal LYMPH # 1.7 103/ul Normal 1.2-3.8 [facility] Comment on above: Performed By: #### A 1C #### [facility] [address] [place] [address] Dr. Bridger Aggarwal Lymphocytes/100 WBC (Bld) 22.3 % Normal 20.5-60.0 [facility] Comment on above: Performed By: #### A 1C #### [facility] [address] [place] [address] Dr. Bridger Aggarwal MANUAL DIFF REQ NO Normal [facility] Comment on above: Performed By: #### A 1C #### [facility] [address] [place] [address] Dr. Bridger Aggarwal MCH (RBC) [Entitic mass] 34.3 pg Critically high 25.9-34.0 [facility] Comment on above: Performed By: #### A 1C #### [facility] [address] [place] [address] Dr. Bridger Aggarwal MCHC (RBC) [Mass/Vol] 34.4 g/dL Normal 29.9-35.2 [facility] Comment on above: Performed By: #### A 1C #### [facility] [address] [place] [address] Dr. Bridger Aggarwal MCV (RBC) [Entitic vol] 99.6 fL Critically high 80.0-94.0 [facility] Comment on above: Performed By: #### A 1C #### [facility] [address] [place] [address] Dr. Bridger Aggarwal MONO # 0.7 103/ul Normal 0.3-0.8 [facility] Comment on above: Performed By: #### A 1C #### [facility] [address] [place] [address] Dr. Bridger Aggarwal Monocytes/100 WBC (Bld) 8.6 % Normal 1.7-12.0 [facility] Comment on above: Performed By: #### A 1C #### [facility] [address] [place] [address] Dr. Bridger Aggarwal NEUT # 5.2 103/ul Normal 1.4-6.5 [facility] Comment on above: Performed By: #### A 1C #### [facility] [address] [place] [address] Dr. Bridger Aggarwal Neutrophils/100 WBC (Bld) 67.0 % Normal 43.0-75.0 [facility] Comment on above: Performed By: #### A 1C #### [facility] [address] [place] [address] Dr. Bridger Aggarwal Platelet mean volume (Bld) [Entitic vol] 9.4 fL Critically low 9.5-13.5 [facility] Comment on above: Performed By: #### A 1C #### [facility] [address] [address] [address] Bridger Aggarwal PLT 259 103/ul Normal 150-450 [facility] Comment on above: Performed By: #### A 1C #### [facility] [address] [address] [address] Bridger Aggarwal RBC 4.61 106/ul Critically low 4.70-6.10 [facility] Comment on above: Performed By: #### A 1C #### [facility] [address] [address] [address] Bridger Aggarwal WBC 7.8 103/ul Normal 4.0-11.0 [facility] Comment on above: Performed By: #### A 1C #### [facility] [address] [place] [address] Dr. Bridger Aggarwal FREE T3on 12-18-2021 FREE T3 2.71 pg/mlL Normal 2.18-3.98 [facility] Comment on above: Performed By: #### C MP, T4, FT3, TSH, LIPID #### [facility] [address] [place] [address] Dr. Bridger Aggarwal GLYCOHEMOGLOBIN A1Con 2021 ADA RECOMMENDATION SEE BELOW Normal [facility] Comment on above: Result Comment: ADA RECOMMENDED LIMIT 4.0 - 6.0 ADA THERAPEUTIC TARGET < 7.0 ACTION SUGGESTED > 7.0 Performed By: #### A 1C #### [facility] [address] [place] [address] Dr. Bridger Aggarwal Glucose [Mass/Vol] 197 mg/dL Normal [facility] Comment on above: Performed By: #### A 1C #### [facility] [address] [place] [address] Dr. Bridger Aggarwal HbA1c (Bld) [Mass fraction] 8.5 % Critically high 4.5-6.2 [facility] Comment on above: Performed By: #### A 1C #### [facility] [address] [place] [address] Dr. Bridger Aggarwal LIPID PROFILEon 12-18-2021 CHOL-HDL RATIO NORM SEE BELOW Normal [facility] Comment on above: Result Comment: 3.3 - 4.4 LOW RISK 4.4 - 7.1 AVERAGE RISK 7.1 - 11.0 MODERATE RISK >11.0 HIGH RISK Performed By: #### C MP, T4, FT3, TSH, LIPID #### [facility] [address] [place] [address] Dr. Bridger Aggarwal Cholesterol [Mass/Vol] 157 mg/dL Normal <=200 [facility] Comment on above: Performed By: #### C MP, T4, FT3, TSH, LIPID #### [facility] [address] [place] [address] Dr. Bridger Aggarwal Cholesterol in HDL [Mass/Vol] 46 mg/dL Normal 40-60 [facility] Comment on above: Performed By: #### C MP, T4, FT3, TSH, LIPID #### [facility] [address] [place] [address] Dr. Bridger Aggarwal Cholesterol in LDL [Mass/Vol] 85.8 mg/dL Normal [facility] Comment on above: Performed By: #### C MP, T4, FT3, TSH, LIPID #### [facility] [address] [place] [address] Dr. Bridger Aggarwal Cholesterol.total/C holesterol in HDL [Mass ratio] 3.4 {ratio} Normal [facility] Comment on above: Performed By: #### C MP, T4, FT3, TSH, LIPID #### [facility] [address] [place] [address] Dr. Bridger Aggarwal HDL NORMAL > or = 60 mg/dl - LO W CARDIOVASCULAR RISK <40 mg/dl - HIGH CARDIOVASCULAR RISK Normal [facility] Comment on above: Performed By: #### C MP, T4, FT3, TSH, LIPID #### [facility] [address] [address] [address] Bridger Aggarwal LDL CALC NORMAL SEE BELOW Normal [facility] Comment on above: Result Comment: <100 mg/dl OPTIMAL 100 - 129 mg/dl NEAR OR ABOVE OPTIMAL 130 - 159 mg/dl BORDERLINE HIGH 160 - 189 mg/dl HIGH >190 mg/dl VERY HIGH Performed By: #### C MP, T4, FT3, TSH, LIPID #### [facility] [address] [address] [address] Bridger Aggarwal Triglyceride [Mass/Vol] 126 mg/dL Normal <=150 [facility] Comment on above: Performed By: #### C MP, T4, FT3, TSH, LIPID #### [facility] [address] [address] [address] Bridger Aggarwal VLDL CALC 25.2 mg/dL Normal [facility] Comment on above: Performed By: #### C MP, T4, FT3, TSH, LIPID #### [facility] [address] [place] [address] Dr. Bridger Aggarwal OCC BLD IMMUNO SCREENon 12-06 OCCULT BLOOD Negative Normal NEGATIVE [facility] Comment on above: Performed By: #### O BSCRN #### [facility] [address] [place] [address] Dr. Bridger Aggarwal PROF 14(COMP METB)on 022 Albumin [Mass/Vol] 3.6 g/dL Normal 3.4-5.0 [facility] Comment on above: Performed By: #### C MP, T4, FT3, TSH, LIPID #### [facility] [address] [place] [address] Dr. Bridger Aggarwal Albumin/Globulin [Mass ratio] 0.9 {ratio} Normal [facility] Comment on above: Performed By: #### C MP, T4, FT3, TSH, LIPID #### [facility] [address] [place] [address] Dr. Bridger Aggarwal ALP [Catalytic activity/Vol] 84 U/L Normal 46-116 [facility] Comment on above: Performed By: #### C MP, T4, FT3, TSH, LIPID #### [facility] [address] [place] [address] Dr. Bridger Aggarwal ALT [Catalytic activity/Vol] 45 U/L Normal 16-63 [facility] Comment on above: Performed By: #### C MP, T4, FT3, TSH, LIPID #### [facility] [address] [place] [address] Dr. Bridger Aggarwal Anion gap [Moles/Vol] 12.1 mmol/L Normal [facility] Comment on above: Performed By: #### C MP, T4, FT3, TSH, LIPID #### [facility] [address] [address] [address] Bridger Aggarwal AST [Catalytic activity/Vol] 20 U/L Normal 15-37 [facility] Comment on above: Performed By: #### C MP, T4, FT3, TSH, LIPID #### [facility] [address] [address] [address] Bridger Aggarwal Bilirubin [Mass/Vol] 0.6 mg/dL Normal 0.2-1.0 [facility] Comment on above: Performed By: #### C MP, T4, FT3, TSH, LIPID #### [facility] [address] [place] [address] Dr. Bridger Aggarwal Calcium [Mass/Vol] 9.1 mg/dL Normal 8.5-10.1 [facility] Comment on above: Performed By: #### C MP, T4, FT3, TSH, LIPID #### [facility] [address] [place] [address] Dr. Bridger Aggarwal Chloride [Moles/Vol] 100 mmol/L Normal 98-107 [facility] Comment on above: Performed By: #### C MP, T4, FT3, TSH, LIPID #### [facility] [address] [place] [address] Dr. Bridger Aggarwal CO2 [Moles/Vol] 28.4 mmol/L Normal 21.0-32.0 [facility] Comment on above: Performed By: #### C MP, T4, FT3, TSH, LIPID #### [facility] [address] [address] [address] Bridger Aggarwal Creatinine [Mass/Vol] 0.99 mg/dL Normal 0.70-1.30 [facility] Comment on above: Performed By: #### C MP, T4, FT3, TSH, LIPID #### [facility] [address] [address] [address] Bridger Aggarwal EGFR-AF SUDANESE >60 Normal >=60 [facility] Comment on above: Performed By: #### C MP, T4, FT3, TSH, LIPID #### [facility] [address] [place] [address] Dr. Bridger Aggarwal EGFR-NON AF SUDANESE >60 Normal >=60 [facility] Comment on above: Performed By: #### C MP, T4, FT3, TSH, LIPID #### [facility] [address] [place] [address] Dr. Bridger Aggarwal Globulin (S) [Mass/Vol] 3.8 g/dL Normal [facility] Comment on above: Performed By: #### C MP, T4, FT3, TSH, LIPID #### [facility] [address] [place] [address] Dr. Bridger Aggarwal Glucose [Mass/Vol] 260 mg/dL Critically high 74-106 T [facility] Comment on above: Performed By: #### C MP, T4, FT3, TSH, LIPID #### [facility] [address] [place] [address] Dr. Bridger Aggarwal Potassium [Moles/Vol] 4.5 mmol/L Normal 3.5-5.1 [facility] Comment on above: Performed By: #### C MP, T4, FT3, TSH, LIPID #### [facility] [address] [place] [address] Dr. Bridger Aggarwal Protein [Mass/Vol] 7.4 g/dL Normal 6.4-8.2 [facility] Comment on above: Performed By: #### C MP, T4, FT3, TSH, LIPID #### [facility] [address] [place] [address] Dr. Bridger Aggarwal Sodium [Moles/Vol] 136 mmol/L Normal 136-145 [facility] Comment on above: Performed By: #### C MP, T4, FT3, TSH, LIPID #### [facility] [address] [place] [address] Dr. Bridger Aggarwal Urea nitrogen [Mass/Vol] 17.0 mg/dL Normal 7.0-18.0 [facility] Comment on above: Performed By: #### C MP, T4, FT3, TSH, LIPID #### [facility] [address] [address] [address] Bridger Aggarwal Urea nitrogen/Creatinine [Mass ratio] 17.2 mg/mg Normal [facility] Comment on above: Performed By: #### C MP, T4, FT3, TSH, LIPID #### [facility] [address] [address] [address] Bridger Aggarwal T4on 12-18-2021 T4 [Mass/Vol] 4.80 ug/dL Normal 4.50-12.10 [facility] Comment on above: Performed By: #### C MP, T4, FT3, TSH, LIPID #### [facility] [address] [address] [address] Bridger Aggarwal TSHon 12-18-2021 TSH 1.496 uIU/mL Normal 0.358-3.740 [facility] Comment on above: Performed By: #### C MP, T4, FT3, TSH, LIPID #### [facility] [address] [address] [address] Bridger Aggarwal TSH RANGE SEE BELOW Normal [facility] Comment on above: Result Comment: <0.3 4 UIU/ml HYPERTHYROID 0.34-5.60 UIU/ml EUTHYROID >5.60 UIU/ml HYPOTHYROID Performed By: #### C MP, T4, FT3, TSH, LIPID #### [facility] [address] [address] [address] Bridger Aggarwal Encounters Encounter Date Encounter Type Care Provider Facility Start: 10-06-2023 Evaluation and management of inpatient DESTINEE LR [facility] Start: 10-05-2023 End: 10-09-2023 Evaluation and management of inpatient ADARSH HORTON [facility] Start: 08-10-2022 End: 08-10-[address] ADARSH HORTON Facility:[facility] Start: 08-03-2022 End: 08-03-[address] ADARSH HORTON Facility:[facility] Start: 04-21-2022 End: 04-21-[address] ADARSH HORTON Facility:[facility] Start: 03-29-2022 End: 03-29-[address] ADARSH HORTON Facility:[facility] Start: 02-05-2022 End: 02-05-[address] ADARSH HORTON Facility:[facility] Start: 12-28-2021 End: 12-29-[address] ADARSH HORTON Facility:[facility] Start: 12-26-2021 End: 12-26-[address] ADARSH HORTON Facility:[facility] Start: 12-23-2021 Encounter for genera l adult medical examination without abnormal findings DR ADARSH HORTON [facility] Start: 12-18-2021 End: 12-19-[address] ADARSH HORTON Facility:[facility] Start: 12-18-2021 End: 12-19-2021 Encounter for general adult medical examination without abnormal findings DR ADARSH HORTON Facility:[facility] Procedures Date Procedure Procedure Detail Performing Clinician Start: 12-18-[address] GREG HORTON Comment on above: Performed By: #### P [facility] #### [facility] [address] [place] [address] Dr. Bridger Aggarwal Payers Date Payer Category Payer Unknown [id number] 2.16.84 [id number] 1973 Unknown [id number] 2.16.84 [id number] 1973 Unknown [id number] 2.16.84 [id number] 1973 Unknown [id number] 2.16.84 [id number] 1973 Unknown [id number] 2.16.84 [id number] 1973 Unknown [id number] 2.16.84 [id number] 1973 Unknown [id number] 2.16.84 [id number] 1973 Unknown [id number] 2.16.84 [id number] 1959 Private Health Insurance [id number] 1961 Unknown [id number] Clinical Notes 10-05-2023 to 10-09-2023 Note Date & Type Note Facility 10-09-2023 Note Patient discharged v ia private ride with . Patient educated on discharge and educated on heart failure education. All questions and concerns addressed at this time. [facility] 10-09-2023 Note 10/09/23 1403 CM Interventions CM Interventions Other (Comment) Follow up appointment for GI Clinic was scheduled for patient for tomorrow, however, per Epic chart, patient has already cancelled. Dr Lr notified [facility] 10-09-2023 Note Awaiting life vest a pproval and fitting. OTM will continue to follow. 1200: Life Vest approved. Awaiting RN for fitting. [facility] 10-09-2023 Note Hospital Medicine Discharge Summary Final Discharge Diagnosis: New onset heart failure with reduced EF, 20-25%, NYHA I, with global hypokinesis NICMP Coronary artery disease- nonobstructive with sluggish coronary flow on [facility] 10/07/23 Hypertension Type 2 DM with A1C 8% Dyslipidemia Alcohol abuse Tobacco dependence Circumferential esophageal thickening-Outpatient GI Fup for concern of EGD, has hx of reflux, Cont PPI therapy Bilateral groundglass opacities and hilar lymphadenopathy. Be infectious versus inflammatory. Flu PCR and COVID-negative. Admission Diagnosis: Heart failure (CMS/[facility]) [I50.9] Hospital course: Tera Roberto is a 48 y.o. male with a PMH significant for T2DM, HTN, obesity, LARS, tobacco dependence intially presents to [facility] after sudden onset SOB. He woke up from sleep to use the restroom, while there he felt nauseous and vomited then he felt sudden onset chest tightness/pressure and SOB. He went to the hospital and required oxygen therapy initially. Labs were unremarkable. EKG was unremarkable. Echo was done and showed reduced EF 35-40% as well as apical akinesia. Repeat echocardiogram in hospital here determined EF 20-25 after transfer here. Patient underwent cardiac cath and noted to have angiographically non-obstructive coronaries with sluggish coronary flow suggestive of endothelial dysfunction. GDMT was optimized and patient was discharged on life-vest with plans for repeat non-invasive assessment for ICD evaluation. Patient was also noted to have esophageal thickening and bilateral ground-glass opacities with hilar lymphadenopathy for which outpatient Pulmonary and GI follow up was established. Patient was advised to abstain from ETOH use and was discharged home. Dear Dr. Rafael MD, Tera is advised to follow up with you within 1-2 weeks. Follow-up with: Scheduled appointments: Future Appointments Date Time Provider Department Center 10/13/2023 2:40 PM Loretta Montgomery NP [facility] Your medication list START taking these medications Instructions Last Dose Given Next Dose Due aspirin 81 mg chewable tablet Chew 1 tablet (81 mg) with breakfast for 96 doses. Do not start before October 09, 2023. atorvastatin 80 mg tablet Commonly known as: Lipitor Take 1 tablet (80 mg) by mouth at bedtime for 96 doses. carvedilol 6.25 mg tablet Commonly known as: Coreg Take 1 tablet (6.25 mg) by mouth in the morning and at bedtime for 192 doses. dapagliflozin propanediol 10 mg Commonly known as: Farxiga Take 1 tablet (10 mg) by mouth in the morning for 97 doses. Do not start before October 09, 2023. pantoprazole 40 mg EC tablet Commonly known as: ProtoNix Take 1 tablet (40 mg) by mouth before breakfast and before evening meal for 60 doses. Do not crush, chew, or split. sacubitril-valsartan 24-26 mg tablet Commonly known as: Entresto Take 1 tablet by mouth in the morning and at bedtime. spironolactone 25 mg tablet Commonly known as: Aldactone Take 0.5 tablets (12.5 mg) by mouth in the morning for 30 doses. Do not start before October 09, 2023. CONTINUE taking these medications Instructions Last Dose Given Next Dose Due glimepiride 4 mg tablet Commonly known as: Amaryl venlafaxine XR 75 mg 24 hr capsule Commonly known as: Effexor-XR STOP taking these medications Jardiance 25 mg Generic drug: empagliflozin pioglitazone 30 mg tablet Commonly known as: Actos simvastatin 20 mg tablet Commonly known as: Zocor Where to Get Your Medications These medications were sent to [facility] [place], [place] - [address] [place] [address] [place] [address], [facility] [address] aspirin 81 mg chewable tablet atorvastatin 80 mg tablet carvedilol 6.25 mg tablet dapagliflozin propanediol 10 mg pantoprazole 40 mg EC tablet sacubitril-valsartan 24-26 mg tablet spironolactone 25 mg tablet Tera has No Known Allergies. Disposition: Home or Self Care () Discharge Condition: Stable Code Status: Full Code Diagnostic Results Hematology: Results from last 7 days Lab Units 10/09/2333710/08/23331 WBC AUTO 10*3/uL 5.76 5.98 HEMOGLOBIN g/dL 16.3 16.1 HEMATOCRIT % 47.7 48.0 MCV fL 102.4* 103.9* PLATELETS AUTO 10*3/uL 181 196 Chemistry: Results from last 7 days Lab Units 10/09/2333710/08/2333110/07/23 0458 SODIUM mmol/L 137 137 137 POTASSIUM mmol/L 4.1 4.1 3.9 CHLORIDE mmol/L 104 101 101 CO2 mmol/L 25 25 26 BUN mg/dL 29* 34* 30* CREATININE mg/dL 0.89 1.01 0.96 GLUCOSE mg/dL 119* 160* 208* CALCIUM mg/dL 8.9 9.0 9.5 No lab exists for component: AFIO2 , APHT , APCOT , APOT , ATCO2 , CK , ALB , IBILI Test Results Pending At Discharge: Diet at the time of discharge: cardiac diet Nutrition Screen Activity: Patient currently has no discharge activity orders Objective Blood pressure (!) 129/100, pulse (more content not included)... [facility] 10-08-2023 Note offal worker lalito valentin by Dakota, at [email or web address], on behalf of patient. Facesheet & cardiology progress note faxed to [facility] to initiate life vest referral. Awaiting approval / denial and next steps before patient can discharge. UPDATE: [employer] reached out to Dakota who reports he is still waiting for insurance approval for life vest. This information was shared with physician, bedside nurse, and social worker clinical. Dakota reports if he is approved today, he will attempt to get patient fitted for his life vest today as well. OTM team continuing to follow. [facility] 10-08-2023 Note Hospital Medicine Discharge Summary Final Discharge Diagnosis: New onset heart failure with reduced EF, 20-25%, NYHA I, with global hypokinesis NICMP Coronary artery disease- nonobstructive with sluggish coronary flow on [facility] 10/07/23 Hypertension Type 2 DM with A1C 8% Dyslipidemia Alcohol abuse Tobacco dependence Circumferential esophageal thickening-Outpatient GI Fup for concern of EGD, has hx of reflux, Cont PPI therapy Bilateral groundglass opacities and hilar lymphadenopathy. Be infectious versus inflammatory. Flu PCR and COVID-negative. Admission Diagnosis: Heart failure (CMS/[facility]) [I50.9] Hospital course: Tera Roberto is a 48 y.o. male with a PMH significant for T2DM, HTN, obesity, LARS, tobacco dependence intially presents to [facility] after sudden onset SOB. He woke up from sleep to use the restroom, while there he felt nauseous and vomited then he felt sudden onset chest tightness/pressure and SOB. He went to the hospital and required oxygen therapy initially. Labs were unremarkable. EKG was unremarkable. Echo was done and showed reduced EF 35-40% as well as apical akinesia. Repeat echocardiogram in hospital here determined EF 20-25 after transfer here. Patient underwent cardiac cath and noted to have angiographically non-obstructive coronaries with sluggish coronary flow suggestive of endothelial dysfunction. GDMT was optimized and patient was discharged on life-vest with plans for repeat non-invasive assessment for ICD evaluation. Patient was also noted to have esophageal thickening and bilateral ground-glass opacities with hilar lymphadenopathy for which outpatient Pulmonary and GI follow up was established. Patient was advised to abstain from ETOH use and was discharged home. Dear Dr. Rafael MD, Tera is advised to follow up with you within 1-2 weeks. Follow-up with: Scheduled appointments: Future Appointments Date Time Provider Department Center 10/10/2023 3:30 PM Briseyda Tran NP [facility] 10/13/2023 2:40 PM Loretta Montgomery NP [facility] Your medication list START taking these medications Instructions Last Dose Given Next Dose Due aspirin 81 mg chewable tablet Start taking on: October 09, 2023 Chew 1 tablet (81 mg) with breakfast for 96 doses. Do not start before October 09, 2023. atorvastatin 80 mg tablet Commonly known as: Lipitor Take 1 tablet (80 mg) by mouth at bedtime for 96 doses. carvedilol 6.25 mg tablet Commonly known as: Coreg Take 1 tablet (6.25 mg) by mouth in the morning and at bedtime for 192 doses. dapagliflozin propanediol 10 mg Commonly known as: Farxiga Start taking on: October 09, 2023 Take 1 tablet (10 mg) by mouth in the morning for 97 doses. Do not start before October 09, 2023. pantoprazole 40 mg EC tablet Commonly known as: ProtoNix Take 1 tablet (40 mg) by mouth before breakfast and before evening meal for 60 doses. Do not crush, chew, or split. sacubitril-valsartan 24-26 mg tablet Commonly known as: Entresto Take 1 tablet by mouth in the morning and at bedtime. spironolactone 25 mg tablet Commonly known as: Aldactone Start taking on: October 09, 2023 Take 0.5 tablets (12.5 mg) by mouth in the morning for 30 doses. Do not start before October 09, 2023. CONTINUE taking these medications Instructions Last Dose Given Next Dose Due glimepiride 4 mg tablet Commonly known as: Amaryl venlafaxine XR 75 mg 24 hr capsule Commonly known as: Effexor-XR STOP taking these medications Jardiance 25 mg Generic drug: empagliflozin pioglitazone 30 mg tablet Commonly known as: Actos simvastatin 20 mg tablet Commonly known as: Zocor Where to Get Your Medications These medications were sent to [facility] - [address] [place] [address] [address] [facility] [place] [address], [facility] [address] aspirin 81 mg chewable tablet atorvastatin 80 mg tablet carvedilol 6.25 mg tablet dapagliflozin propanediol 10 mg pantoprazole 40 mg EC tablet sacubitril-valsartan 24-26 mg tablet spironolactone 25 mg tablet Tera has No Known Allergies. Disposition: Home or Self Care () Discharge Condition: Stable Code Status: Full Code Diagnostic Results Hematology: Results from last 7 days Lab Units 10/08/23 0332 10/07/23 0458 WBC AUTO 10*3/uL 5.98 5.43 HEMOGLOBIN g/dL 16.1 17.3* HEMATOCRIT % 48.0 50.5 MCV fL 103.9* 102.0* PLATELETS AUTO 10*3/uL 196 216 Chemistry: Results from last 7 days Lab Units 10/08/23 0332 10/07/23 0458 10/06/23 0945 SODIUM mmol/L 137 137 137 POTASSIUM mmol/L 4.1 3.9 4.3 CHLORIDE mmol/L 101 101 99 CO2 mmol/L 25 26 26 BUN mg/dL 34* 30* 22 CREATININE mg/dL 1.01 0.96 1.03 GLUCOSE mg/dL 160* 208* 185* CALCIUM mg/dL 9.0 9.5 9.7 No lab exists for component: AFIO2 , APHT , APCOT , APOT , ATCO2 , CK , ALB , IBILI Test Results Pending At Discharge: Diet at the time of di (more content not included)... [facility] 10-08-2023 Note UTP CARDIOLOGY PROGR ESS NOTE Reason for follow up: Acute systolic heart failure Subjective Patient seen and examined in room with parents at bedside. Denies any overnight events. No chest pain, sob, dizziness, palpitations. He is agreeable to LifeVest, and hoping for discharge today. 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 Admits to drinking 1 case of beer/day, and smoking 1/2ppd cigarettes. He states he is going to quit and does not need assistance at this time. Objective Patient Vitals for the past 24 hrs: BP Temp Temp src Pulse Resp SpO2 Weight 10/08/23 0900 136/88 37.1 ???C (98.8 ???F) Temporal 85 19 96 % -- 10/08/23 0500 -- -- -- -- -- -- 117 kg (257 lb) 10/08/23 0400 (!) 134/92 36.5 ???C (97.7 ???F) 85 16 100 % -- 10/08/23 0015 119/85 36.5 ???C (97.7 ???F) 83 15 99 % -- 10/07/232009 118/85 36.2 ???C (97.2 ???F) Temporal 93 20 96 % -- 10/07/23 1730 (!) 115/92 36.3 ???C (97.3 ???F) -- 89 13 97 % -- 10/07/23 1700 125/85 36.3 ???C (97.3 ???F) Temporal 88 24 95 % -- 10/07/23 1611 115/74 36 ???C (96.8 ???F) Temporal 88 18 97 % -- 10/07/23 1530 118/70 36.2 ???C (97.2 ???F) Temporal 89 26 95 % -- 10/07/23 1433 131/78 36.3 ???C (97.3 ???F) Temporal -- 19 93 % -- 10/07/23 1345 (!) 124/103 -- -- 82 19 96 % -- 10/07/23 1330 (!) 117/98 -- -- 84 14 96 % -- 10/07/23 1315 (!) 123/93 -- -- 83 20 96 % -- 10/07/23 1300 136/85 36.2 ???C (97.2 ???F) Temporal 85 21 98 % -- 10/07/23 1246 122/86 36.3 ???C (97.3 ???F) Temporal 82 16 95 % -- 10/07/23 1213 133/87 36.4 ???C (97.5 ???F) Temporal 91 16 95 % -- 10/07/23 1131 -- -- -- -- -- 95 % -- 10/07/23 1130 (!) 132/94 -- -- 88 18 95 % -- Physical Exam Vitals and nursing note reviewed. Constitutional: General: He is not in acute distress. Appearance: Normal appearance. He is not ill-appearing. HENT: Head: Normocephalic. Eyes: Pupils: Pupils are equal, round, and reactive to light. Cardiovascular: Rate and Rhythm: Normal rate and regular rhythm. Pulses: Normal pulses. Heart sounds: Normal heart sounds. No murmur heard. No friction rub. Pulmonary: Effort: Pulmonary effort is normal. No respiratory distress. Breath sounds: Normal breath sounds. No wheezing, rhonchi or rales. Abdominal: Palpations: Abdomen is soft. Tenderness: There is no abdominal tenderness. Musculoskeletal: Right lower leg: No edema. Left lower leg: No edema. Skin: General: Skin is warm and dry. Neurological: General: No focal deficit present. Mental Status: He is alert and oriented to person, place, and time. Psychiatric: Mood and Affect: Mood normal. Behavior: Behavior normal. Lab Results Component Value Date NA 137 10/08/2023 K 4.1 10/08/2023 CL 101 10/08/2023 ANIONGAP 15 10/08/2023 BUN 34 (H) 10/08/2023 CREATININE 1.01 10/08/2023 CALCIUM 9.0 10/08/2023 No results found for: BILITOT , BILIDIR , ALKPHOS , AST , ALT , PROT , ALBUMIN Lab Results Component Value Date WBC 5.98 10/08/2023 RBC 4.62 10/08/2023 HGB 16.1 10/08/2023 HCT 48.0 10/08/2023 MCV 103.9 (H) 10/08/2023 MCH 34.8 (H) 10/08/2023 MCHC 33.5 10/08/2023 RDW 12.2 10/08/2023 NEUTOPHILPCT 57.9 10/08/2023 LYMPHOPCT 24.6 10/08/2023 MONOPCT 14.2 (H) 10/08/2023 EOSPCT 2.0 10/08/2023 BASOPCT 1.0 10/08/2023 NEUTROABS 3.46 10/08/2023 LYMPHSABS 1.47 10/08/2023 MONOSABS 0.85 10/08/2023 EOSABS 0.12 10/08/2023 BASOSABS 0.06 10/08/2023 PLT 196 10/08/2023 NRBC 0.0 10/08/2023 No results found for this or any previous visit from the past 1 day. Current Medications: aspirin, 81 mg, oral, Daily with breakfast atorvastatin, 80 mg, oral, Nightly carvedilol, 6.25 mg, oral, BID dapagliflozin propanediol, 10 mg, oral, Daily enoxaparin, 40 mg, subcutaneous, Daily folic acid, 1 mg, intravenous, Daily insulin lispro, 0-13 Units, subcutaneous, With meals & nightly pantoprazole, 40 mg, oral, BID AC sacubitriL-valsartan, 1 each, oral, BID [START ON 10/09/2023] spironolactone, 12.5 mg, oral, Daily IV medications: PRN Medications: PRN medications: Insert peripheral IV AND Saline lock IV AND sodium chloride CV Testing: [facility] 10/07/23: FINAL IMPRESSIONS: Angiographically nonobstructive coronary arteries Sluggish coronary flow suggestive of endothelial dysfunction Severely reduced global left ventricular systolic function by noninvasive imaging Normal right-sided filling pressures and low normal pulmonary capillary wedge pressure Mildly reduced cardiac output/cardiac index RECOMMENDATIONS: Consider nonischemic etiologies such as ETOH-related for the patient's cardiomyopathy; complete abstinence from alcohol is strongly advised Aggressive cardiovascular stratification Aspirin and a statin given sluggish TYRONE flow suggestive of endothelial dysfunction Optimal medical therapy for heart failure with reduced ejection fraction should include a beta-nabila, a (more content not included)... [facility] 10-08-2023 Note Hospital Medicine Daily Progress Note - 10/09/2023 7:16 AM; Room: [address] [place] [address] Admission: 10/05/2023 7:45 PM; Length of stay: 4 days THE HOSPITALIST TEAM PREFERS TO USE [employer] CHAT FOR COMMUNICATION 7AM-7PM. IF I DO NOT RESPOND WITHIN 15 MINUTES, PLEASE PAGE ME/CALL THROUGH THE [employer]. FROM 7PM-7AM, PLEASE PAGE [phone](COVR) Code Status: Full Code Barriers to Discharge: pending lifevest Expected Discharge Date: Discharge Destination: home Overview Patient is seen for evaluation and management of new onset HFrEF Subjective Met patient with family at bedside. Denies any overnight issues or concerns. Discussed GDMT and EtOH cessation at length Physical Exam Visit Vitals BP (!) 129/100 Pulse 92 Temp 36.6 ???C (97.9 ???F) (Temporal) Resp 22 Intake/Output Summary (Last 24 hours) at 10/09/2023 0716 Last data filed at 10/09/2023 0600 Gross per 24 hour Intake 1920 ml Output 1350 ml Net 570 ml Physical Exam Cardiovascular: Rate and Rhythm: Normal rate and regular rhythm. Heart sounds: Normal heart sounds. Pulmonary: Breath sounds: Normal breath sounds. Abdominal: Palpations: Abdomen is soft. Skin: General: Skin is warm. Neurological: General: No focal deficit present. Psychiatric: Mood and Affect: Mood normal. Estimated body mass index is 37.86 kg/m??? as calculated from the following: Height as of this encounter: 1.753 m (5' 9 ). Weight as of this encounter: 116 kg (256 lb 6.4 oz). Active Inpatient Problems Principal Problem: Heart failure ([facility]) Assessment and Plan Acute hypoxemic resp failure- Improved on diuretics at OSH, will continue today Euvolemic at present New onset heart failure with reduced ejection fraction 20-25% Non obstructive on cath Cont GDMT, lifevest, ASA, statin Pulmonary nodularity with lymphadenopathy- Concern for atypical process vs inflammatio Pulm team outpatient FUP Essential HTN-Optimize with GDMT NIDDM II-sliding scale Circumferential esophageal thickening- Outpatient GI Fup for concern of EGD, has hx of reflux Cont PPI therapy LARS on CPAP Obesity Nutrition Screen Malnutrition Attestation: I attest to the following: I have personally seen this patient. The patient has been assessed for malnutrition as documentation above, and based on the criteria set by the Academy of Nutrition and Dietetics and the [place] [employer]al and Parenteral [employer], meets the diagnosis for malnutrition. A care plan has been established for this patient. VTE Prophylaxis: Lovenox SQ Scheduled Meds aspirin, 81 mg, oral, Daily with breakfast atorvastatin, 80 mg, oral, Nightly carvedilol, 6.25 mg, oral, BID dapagliflozin propanediol, 10 mg, oral, Daily enoxaparin, 40 mg, subcutaneous, Daily folic acid, 1 mg, intravenous, Daily insulin lispro, 0-13 Units, subcutaneous, With meals & nightly pantoprazole, 40 mg, oral, BID AC sacubitriL-valsartan, 1 each, oral, BID spironolactone, 12.5 mg, oral, Daily Pertinent Investigations Hematology: Results from last 7 days Lab Units 10/09/23 0338 10/08/23 0332 WBC AUTO 10*3/uL 5.76 5.98 HEMOGLOBIN g/dL 16.3 16.1 HEMATOCRIT % 47.7 48.0 MCV fL 102.4* 103.9* PLATELETS AUTO 10*3/uL 181 196 Chemistry: Results from last 7 days Lab Units 10/09/23 0338 10/08/23 03310/07/23 0458 SODIUM mmol/L 137 137 137 POTASSIUM mmol/L 4.1 4.1 3.9 CHLORIDE mmol/L 104 101 101 CO2 mmol/L 25 25 26 BUN mg/dL 29* 34* 30* CREATININE mg/dL 0.89 1.01 0.96 GLUCOSE mg/dL 119* 160* 208* CALCIUM mg/dL 8.9 9.0 9.5 No lab exists for component: AFIO2 , APHT , APCOT , APOT , ATCO2 , CK , ALB , IBILI Results from last 7 days Lab Units 10/08/23 2117 10/08/23 1611 10/08/23 1112 10/08/23 0730 10/07/23 2102 10/07/23 1605 POCT GLUCOSE mg/dL 171* 128* 170* 174* 173* 169* Historical Values: (Includes values prior to this admission) Lab Results Component Value Date HDL 51 10/06/2023 LDL 178 10/06/2023 No results found for: [id number] , IRON , TIBC , C3 , C4 , DANTE , CANCA , ASO , PSA , CEA , CA125 , CA199 , AFP , CA153 Imaging Cardiac catheterization Cardiovascular Laboratory Report FINAL IMPRESSIONS: Angiographically nonobstructive coronary arteries Sluggish coronary flow suggestive of endothelial dysfunction Severely reduced global left ventricular systolic function by noninvasive imaging Normal right-sided filling pressures and low normal pulmonary capillary wedge pressure Mildly reduced cardiac output/cardiac index RECOMMENDATIONS: Consider nonischemic etiologies such as ETOH-related for the patient's cardiomyopathy; complete abstinence from alcohol is strongly advised Aggressive cardiovascular stratification Aspirin and a statin given sluggish TYRONE flow suggestive of endothelial dysfunction Optimal medical therapy for heart failure with reduced ejection fraction should include a beta-nabila, a RAA (more content not included)... [facility] 10-07-2023 Note Clinical Therapist B rief Intervention Note Substance Intervention: Raise the Subject: Clinician introduced self and asked permission to discuss mental health/ substance use information with visitors present. Pt consented to discussion. Clinician discussed alcohol screening score. Pt reports he's done and states due to his current health situation he has decided to stop drinking. Pt reports he previously drank daily. Provide Feedback: Clinician discussed the benefits of treatment while pt attempts to make changes with his alcohol use, discussed the difficulty in changing the routine of drinking without support. Clinician left rethinking drinking brochure and treatment resources. Enhance Motivation: pt reports he is going to stop drinking Negotiate a Plan: pt is planning to stop using alcohol on his own without the support of treatment Prescription for Change: pt reports he is going to stop drinking Readiness Ruler Exercise Patient's readiness to change was 10 on a scale of 1-10, with 1 being the least ready to change and 10 being the most ready to change. We explored why it was not a lower number and discussed patient's own motivation for change. Patient Goals/Discussion: abstain/cut back to no more than 0 times/day Referral for Treatment was offered: Resources provided Audit C Interventions Referral for addictions treatment was offered: No Referral were not offered: Patient declined intervention In total 7 minutes of aggregate personnel time was spent administering and interpreting the screen, plus performing a brief intervention. Assessment completed by: DELMA Morgan [facility] 10-07-2023 Note Cardiovascular Labor atory Report FINAL IMPRESSIONS: Angiographically nonobstructive coronary arteries Sluggish coronary flow suggestive of endothelial dysfunction Severely reduced global left ventricular systolic function by noninvasive imaging Normal right-sided filling pressures and low normal pulmonary capillary wedge pressure Mildly reduced cardiac output/cardiac index RECOMMENDATIONS: Consider nonischemic etiologies such as ETOH-related for the patient's cardiomyopathy; complete abstinence from alcohol is strongly advised Aggressive cardiovascular stratification Aspirin and a statin given sluggish TYRONE flow suggestive of endothelial dysfunction Optimal medical therapy for heart failure with reduced ejection fraction should include a beta-nabila, a RAAS inhibitor or ARNI, an SGLT2 inhibitor and spironolactone Given low normal filling pressures, decrease diuresis, monitor serum creatinine and electrolytes and correct as appropriate Consider a LifeVest at discharge Repeat noninvasive assessment of his ejection fraction 90 days after initiation of optimal medical therapy; if ejection fraction is still 35% or less, he will meet criteria for an implantable cardioverter defibrillator Further recommendations deferred to the inpatient services PROCEDURES: Ultrasound-guided access to the right internal jugular vein, right heart catheterization, ultrasound-guided access to the left radial artery, bilateral selective coronary angiography METHODS: After risks, benefits, and alternatives were explained, written informed consent was obtained. The patient was prepped and draped in usual sterile fashion over the right neck and left radial regions. Using 1% lidocaine solution, local infiltration anesthesia was achieved. Using a modified Seldinger technique, a micropuncture kit, and under ultrasound guidance, access to the right internal jugular vein was obtained. A 6 Prydeinig 11 cm sheath was inserted without difficulty. Right heart catheterization was performed using a Maria catheter via the venous sheath. Pressures were measured in the right atrium, right ventricle, pulmonary artery, and pulmonary capillary wedge positions. Oxygen saturations were obtained and cardiac output/cardiac index was calculated using the modified Susan principle. The Maria catheter was removed. The jugular sheath was removed with application of manual pressure to achieve optimal hemostasis. Local infiltration anesthesia was achieved of the left wrist. Using a micropuncture kit, and under ultrasound-guided access of the left radial artery was obtained. A 6 Prydeinig glide sheath was inserted without difficulty. Bilateral selective coronary angiography was performed using JL4 and JR4 catheters. After reviewing the images, it was elected to conclude the procedure. All catheters were removed. The radial sheath was removed with application of a TR band per protocol to achieve optimal hemostasis. Overall the patient tolerated the procedure well. There were no overt complications. He was to be transferred to the holding area in stable condition. FINDINGS: Hemodynamics: RA 5 RV 28/1, 4 PA 28/12 [21] PCWP 6 TPG 15 AO 126/87 [105] Cardiac output /cardiac index 4.63/2.02 AO sat /PA sat 96%/68% LEFT VENTRICULOGRAPHY: This was not performed; ejection fraction is 20 to 25% by echocardiography. CORONARY ARTERIES: Left main coronary artery: This arises from the left coronary cusp, it bifurcates into the left anterior descending and left circumflex coronary arteries. It is free of significant stenosis. Left anterior descending coronary artery: This is angiographically nonobstructive. There is sluggish coronary flow in the distal portion suggestive of endothelial dysfunction. Left circumflex coronary artery: This is a small vessel that gives rise to a small caliber obtuse marginal. There are luminal irregularities and sluggish TYRONE flow. Right coronary artery: This is a dominant vessel arising from the right coronary cusp giving rise to the severe descending and posterolateral branches. It extends out into the inferolateral territory. It is angiographically nonobstructive. There is sluggish flow distally consistent with endothelial dysfunction. INDICATIONS: Newly diagnosed heart failure with reduced ejection fraction, exertional shortness of breath, abnormal echocardiogram [facility] 10-07-2023 Note ---- Attestation signed by Carlos Avendano MD at 10/07/2023 12:59 PM I personally saw and examined the patient on the same date of service as resident/fellow Dr. Wiley. I discussed the findings and therapeutic plan with the resident/fellow Dr. Wiley. I agree with the documentation, except for any edits/updates below. Teaching Physician's Revisions: None ---- Cardiology Progress Note Subjective Subjective: No acute overnight events. Denies acute complaints. For cardiac cath today. Objective Objective: Patient Vitals for the past 24 hrs: BP Temp Temp src Pulse Resp SpO2 Weight 10/07/23 1131 -- -- -- -- -- 95 % -- 10/07/23 1130 (!) 132/94 -- -- 88 18 95 % -- 10/07/23 0747 115/85 36.7 ???C (98.1 ???F) Temporal 86 13 95 % -- 10/07/23 0608 -- -- -- -- -- -- 116 kg (256 lb) 10/07/23 0345 (!) 144/96 36.6 ???C (97.9 ???F) Temporal 80 20 91 % -- 10/06/23 2340 122/82 36.5 ???C (97.7 ???F) Temporal 92 19 95 % -- 10/06/23 1930 (!) 125/97 36.4 ???C (97.6 ???F) Temporal 93 19 95 % -- 10/06/23 1532 114/82 36.6 ???C (97.8 ???F) Temporal 96 22 95 % -- Physical Examination: GENERAL: AOx3, in no acute distress. HEAD: Atraumatic, normocephalic. EYES: YURIDIA, EOMI. NECK: No JVD present. CARDIAC: RRR. No murmur, rubs, or gallops. RESPIRATORY: CTAB, no increased effort of breathing. ABDOMEN: Soft, nontender, nondistended. EXTREMITIES: No lower extremity edema, peripheral pulses are 2+ bilaterally. NEURO: No focal deficits Relevant Lab Results Encounter Date: 10/05/23 ECG 12 lead Result Value Ventricular Rate 88 Atrial Rate 88 SC Interval 162 QRS DURATION 84 QT Interval 404 QTC CALCULATION(BAZETT) 488 P [place] 50 R-[place] 0 T Wave [place] 61 Impression Sinus rhythm with occasional Premature ventricular complexes Left ventricular hypertrophy ( R in aVL ) Prolonged QT Abnormal ECG No previous ECGs available Confirmed by Daily MENDEZ, L.S. (2) on 10/06/2023 11:01:33 AM Lab Results Component Value Date TROPONINI 0.03 10/06/2023 Transthoracic echo (TTE) limited Result Date: 10/06/2023 1 1 [facility] Heart Station [address] [place] [address] [phone] (fax) Echocardiogram-[facility] Name: TERA ROBERTO Study Date: 10/06/2023 10:25 AM B/P: 153 mmHg/104 mmHg HR: 96 bpm Date of : 1975 Location: [facility] Height: 69 in. Age: 48 year(s) Patient Room: 3123 Weight: 255 lb. Gender: Male Patient Status: InPt BSA: 2.29 m2 Indication: Congestive Heart Failure Examination: Limited Echo, Color flow imaging, Lumason Contrast Image Quality: Poor sound transmission due to body habitus Patient Consent: Procedure explained to patient Exam Details Contrast: I.V. dose of Lumason Conclusions Left Ventricle: The leftventricle is moderately enlarged. Global left ventricular systolic function is severely reduced. EF range is estimated at 20 % -25 %. Left ventricular wall thickness is at upper normal limits. Diffuse global hypokinesis. Left Atrium: The left atrium appears normal in size. Overall Conclusions: Due to suboptimal imaging Lumason contrast was administered for opacification and better delineation of endocardial borders. Measurements Left Ventricle Label Value Normal Value LVDd, 2D 6.88 cm (4.2cm - 5.9cm) LVDs, 2D 5.35 cm (2.1cm - 4cm) IVSd, 2D 1.07 cm (0.6cm - 1.1cm) LVPWd, 2D 1.11 cm (0.6cm - 1cm) LV Mass, 2D ASE 348.39 g LV Mass Index, 2D ASE 152.1 g/m?? (50g/m?? - 102.4g/m??) RWT, MM 0.32 (0 - 0.42) LVSVI, 2D 15.3 ml/m2 Findings Left Ventricle: The left ventricle is moderately enlarged. Global left ventricular systolic function is severely reduced. EF range is estimated at 20 % -25 %. Left ventricular wall thickness is at upper normal limits. Diffuse global hypokinesis. Right Ventricle: Right ventricle is poorly visualized. Left Atrium: The left atrium appears normal in size. Right Atrium: The right atrium appears normal in size. Mitral Valve: Mitral valve appears normal. Aortic Valve: Aortic valve appears normal. Tricuspid Valve: Tricuspid valve appears normal. Pulmonic Valve: Pulmonic valve is poorly visualized. Pericardium: No pericardial effusion. Procedure Staff Reading Group: [facility] Referring Physician: Keith Edwards Internet Marketing Intern: Zina Altamirano [facility] Ordering Physician: DESTINEE LR No nuclear medicine results found for the past 12 months Relevant Imaging Results Transthoracic echo (TTE) limited 1 1 [facility] Heart [facility] [address] [place] [address] [phone] (fax) Echocardiogram-[facility] Name: TERA ROBERTO Study Date: 10/06/2023 10:25 AM B/P: (more content not included)... [facility] 10-07-2023 Note Clinician attempted to provide AOD brief intervention. Physician at bedside with pt. Clinician will make another attempt [facility] 10-07-2023 Note Hospital Medicine Daily Progress Note - 10/07/2023 9:30 AM; Room: [address] [place] [address] Admission: 10/05/2023 7:45 PM; Length of stay: 2 days THE HOSPITALIST TEAM PREFERS TO USE [employer] CHAT FOR COMMUNICATION 7AM-7PM. IF I DO NOT RESPOND WITHIN 15 MINUTES, PLEASE PAGE ME/CALL THROUGH THE [employer]PERVISOR [employer] TEST[employer]. FROM 7PM-7AM, PLEASE PAGE [phone](COVR) Code Status: Full Code Barriers to Discharge: clinical optimization Expected Discharge Date: Discharge Destination: home Overview Patient is seen for evaluation and management of new onset HFrEF Subjective Met patient with family at bedside. Denies any overnight issues or concerns. Planned for cath today. Physical Exam Visit Vitals BP 115/85 (BP Location: Left arm, Patient Position: Sitting) Pulse 86 Temp 36.7 ???C (98.1 ???F) (Temporal) Resp 13 Intake/Output Summary (Last 24 hours) at 10/07/2023 0930 Last data filed at 10/07/2023 0608 Gross per 24 hour Intake 600 ml Output 1700 ml Net -1100 ml Physical Exam Cardiovascular: Rate and Rhythm: Normal rate and regular rhythm. Heart sounds: Normal heart sounds. Pulmonary: Breath sounds: Normal breath sounds. Abdominal: Palpations: Abdomen is soft. Skin: General: Skin is warm. Neurological: General: No focal deficit present. Psychiatric: Mood and Affect: Mood normal. Estimated body mass index is 37.8 kg/m??? as calculated from the following: Height as of this encounter: 1.753 m (5' 9 ). Weight as of this encounter: 116 kg (256 lb). Active Inpatient Problems Principal Problem: Heart failure (CMS/[facility]) Assessment and Plan Acute hypoxemic resp failure- Improved on diuretics at OSH, will continue today Euvolemic at present New onset heart failure with reduced ejection fraction 20-25% Aspirin, BB, Faxiga, Losartan Pulmonary nodularity with lymphadenopathy- Concern for atypical process vs inflammatio Pulm team on board Essential HTN-Optimize with GDMT NIDDM II-sliding scale Circumferential esophageal thickening- Outpatient GI Fup for concern of EGD, has hx of reflux Cont PPI therapy LARS on CPAP Obesity Nutrition Screen Malnutrition Attestation: I attest to the following: I have personally seen this patient. The patient has been assessed for malnutrition as documentation above, and based on the criteria set by the Academy of Nutrition and Dietetics and the [place] [employer] of Enteral and Parenteral Nutrition, meets the diagnosis for malnutrition. A care plan has been established for this patient. VTE Prophylaxis: Lovenox SQ Scheduled Meds aspirin, 81 mg, oral, Daily with breakfast atorvastatin, 80 mg, oral, Nightly carvedilol, 6.25 mg, oral, BID dapagliflozin propanediol, 10 mg, oral, Daily enoxaparin, 40 mg, subcutaneous, Daily folic acid, 1 mg, intravenous, Daily insulin lispro, 0-13 Units, subcutaneous, With meals & nightly losartan, 50 mg, oral, Daily pantoprazole, 40 mg, oral, BID AC Pertinent Investigations Hematology: Results from last 7 days Lab Units 10/07/23 0458 10/06/23 0824 WBC AUTO 10*3/uL 5.43 6.23 HEMOGLOBIN g/dL 17.3* 17.3* HEMATOCRIT % 50.5 50.7 MCV fL 102.0* 101.6* PLATELETS AUTO 10*3/uL 216 219 Chemistry: Results from last 7 days Lab Units 10/07/23 0458 10/06/23 0945 10/06/23 0824 SODIUM mmol/L 137 137 137 POTASSIUM mmol/L 3.9 4.3 4.3 CHLORIDE mmol/L 101 99 99 CO2 mmol/L 26 26 26 BUN mg/dL 30* 22 22 CREATININE mg/dL 0.96 1.03 0.98 GLUCOSE mg/dL 208* 185* 176* CALCIUM mg/dL 9.5 9.7 9.6 No lab exists for component: AFIO2 , APHT , APCOT , APOT , ATCO2 , CK , ALB , IBILI Results from last 7 days Lab Units 10/07/23 0732 10/06/23 2017 10/06/23 1527 10/06/23 1152 10/06/23 0711 02/28/24 2107 POCT GLUCOSE mg/dL 242* 276* 187* 183* 183* 229* Historical Values: (Includes values prior to this admission) Lab Results Component Value Date HDL 51 10/06/2023 LDL 178 10/06/2023 No results found for: [id number] , IRON , TIBC , C3 , C4 , DANTE , CANCA , ASO , PSA , CEA , CA125 , CA199 , AFP , CA153 Imaging Transthoracic echo (TTE) limited 1 1 [facility] Heart Station [address] [address] [phone] (fax) Echocardiogram-[facility] Name: TERA ROBERTO Study Date: 10/06/2023 10:25 AM B/P: 153 mmHg/104 mmHg HR: 96 bpm Date of : 1975 Location: [facility] Height: 69 in. Age: 48 year(s) Patient Room: [facility] Weight: 255 lb. Gender: Male Patient Status: InPt BSA: 2.29 m2 Indication: Congestive Heart Failure Examination: Limited Echo, Color flow imaging, Lumason Contrast Image Quality: Poor sound transmission due to body habitus Patient Consent: Procedure explained to patient Exam Details Contrast: I.V. dose of Lumason Conclusions Left Ventricle: The left ventricle is moderately enlarged. Global left ventricular systolic function is severely reduced. EF range is estimated at (more content not included)... [facility] 10-06-2023 Note Patient admitted to the hospital for: Heart failure. Chart echo from 10/06/2023 reports: EF 20-25%. Echo report qualifies for Cardiac Rehab services per CMS eligibility criteria. A Cardiac Rehab referral diagnosis must also meet CMS criteria. Stefany Rucker, RN, BSN Cardiology Outpatient Coordinator Cardiopulmonary Rehab [facility] 10-06-2023 Note Hospital Medicine Daily Progress Note - 10/06/2023 10:45 AM; Room: [facility]3/3123- Admission: 10/05/2023 7:45 PM; Length of stay: 1 days THE HOSPITALIST TEAM PREFERS TO USE [employer] CHAT FOR COMMUNICATION 7AM-7PM. IF I DO NOT RESPOND WITHIN 15 MINUTES, PLEASE PAGE ME/CALL THROUGH THE [employer] TEST[employer]. FROM 7PM-7AM, PLEASE PAGE [phone](COVR) Code Status: Full Code Barriers to Discharge: clinical optimization Expected Discharge Date: Discharge Destination: home Overview Patient is seen for evaluation and management of new onset HFrEF Subjective Mr. Roberto says he overall feels better with Diuresis. He describes symptoms were more of sudden onset. Denies any other new concerns or complaints today. Physical Exam Visit Vitals BP (!) 153/104 (BP Location: Left arm, Patient Position: Lying) Pulse 92 Temp 36.7 ???C (98 ???F) (Temporal) Resp 19 Intake/Output Summary (Last 24 hours) at 10/06/2023 1045 Last data filed at 10/06/2023 0930 Gross per 24 hour Intake 770 ml Output 2350 ml Net -1580 ml Physical Exam Cardiovascular: Rate and Rhythm: Normal rate and regular rhythm. Heart sounds: Normal heart sounds. Pulmonary: Breath sounds: Normal breath sounds. Abdominal: Palpations: Abdomen is soft. Skin: General: Skin is warm. Neurological: General: No focal deficit present. Psychiatric: Mood and Affect: Mood normal. Estimated body mass index is 37.72 kg/m??? as calculated from the following: Height as of this encounter: 1.753 m (5' 9 ). Weight as of this encounter: 116 kg (255 lb 6.4 oz). Active Inpatient Problems Principal Problem: Heart failure ([facility]) Assessment and Plan Acute hypoxemic resp failure- Improved on diuretics at OSH, will continue today, close to euvolemic New onset heart failure with reduced ejection fraction 35 to 40%- R/O CAD Aspirin, BB, add Faxiga, cont losartan Dyspnea on exertion- Concern of angina equivalent Improved on diuretic, cont today. Pulmonary nodularity with lymphadenopathy- Concern for atypical process vs inflammation Check Influenza A, COVID Pulm team to see Essential HTN-Optimize with GDMT NIDDM II-sliding scale Circumferential esophageal thickening- Outpatient GI Fup for concern of EGD, has hx of reflux Cont PPI therapy LARS on CPAP Obesity Nutrition Screen Malnutrition Attestation: I attest to the following: I have personally seen this patient. The patient has been assessed for malnutrition as documentation above, and based on the criteria set by the Academy of Nutrition and Dietetics and the [place] [employer] of Enteral and Parenteral Nutrition, meets the diagnosis for malnutrition. A care plan has been established for this patient. VTE Prophylaxis: Lovenox SQ Scheduled Meds aspirin, 81 mg, oral, Daily with breakfast atorvastatin, 80 mg, oral, Nightly carvedilol, 6.25 mg, oral, BID enoxaparin, 40 mg, subcutaneous, Daily folic acid, 1 mg, intravenous, Daily furosemide, 20 mg, intravenous, q12h insulin lispro, 0-13 Units, subcutaneous, With meals & nightly losartan, 50 mg, oral, Daily pantoprazole, 40 mg, oral, BID AC thiamine, 500 mg, intravenous, Daily Pertinent Investigations Hematology: Results from last 7 days Lab Units 10/06/23 0824 10/05/23 2039 WBC AUTO 10*3/uL 6.23 6.46 HEMOGLOBIN g/dL 17.3* 16.7 HEMATOCRIT % 50.7 49.4 MCV fL 101.6* 103.3* PLATELETS AUTO 10*3/uL 219 149* Chemistry: Results from last 7 days Lab Units 10/06/23 0945 10/06/23 0824 SODIUM mmol/L 137 137 POTASSIUM mmol/L 4.3 4.3 CHLORIDE mmol/L 99 99 CO2 mmol/L 26 26 BUN mg/dL 22 22 CREATININE mg/dL 1.03 0.98 GLUCOSE mg/dL 185* 176* CALCIUM mg/dL 9.7 9.6 No lab exists for component: AFIO2 , APHT , APCOT , APOT , ATCO2 , CK , ALB , IBILI Results from last 7 days Lab Units 10/06/23 0711 10/05/23 2107 POCT GLUCOSE mg/dL 183* 229* Historical Values: (Includes values prior to this admission) Lab Results Component Value Date HDL 51 10/06/2023 LDL 178 10/06/2023 No results found for: CIUPFKXC12 , IRON , TIBC , C3 , C4 , DANTE , CANCA , ASO , PSA , CEA , CA125 , CA199 , AFP , CA153 Imaging XR chest 1 view Narrative: XR CHEST 1 VIEW 10/06/2023 8:08 AM CLINICAL INDICATIONS: Cough. Tobacco use COMPARISON: None FINDINGS: Single AP upright image was obtained Impression: Cardiac silhouette is mildly enlarged. No other congestive features are noted however. There is no large pleural effusion. No cephalization of vessels. No focal airspace disease or infiltrate is appreciated. No acute pulmonary process is noted Electronically signed: Carmen Trujillo. ECG 12 lead Sinus rhythm with occasional Premature ventricular complexes Minimal voltage criteria for LVH, may be normal variant ( R in aVL ) Prolonged QT Abnormal ECG No previous ECGs available Discharge Planning Signed Destinee Lr MD Hospital Medicine 10/06/2023 10: (more content not included)... [facility] 10-05-2023 Note Hospital Medicine History and Physical 10/05/2023 7:51 PM THE HOSPITALIST TEAM PREFERS TO USE [employer] CHAT FOR COMMUNICATION 7AM-7PM. IF I DO NOT RESPOND WITHIN 15 MINUTES, PLEASE PAGE ME/CALL THROUGH THE [employer]PER[employer]OR [employer] TEST[employer]. FROM 7PM-7AM, PLEASE PAGE [phone](COVR). SUBJECTIVE: Chief Complaint Acute onset of Shortness of breath History of Present Illness Tera Roberto is a 48 y.o. male with a past medical history of Hypertension, obesity, diabetes, obstructive sleep apnea, alcohol and tobacco use is being transferred from outside facility where he presented for acute onset of shortness of breath that started 1 AM last night. Patient states that he woke up and went to the bathroom and on his way back became acutely shortness of breath. This was not associated with lightheadedness dizziness. He did have nausea and vomited once. He did not lose consciousness or had any seizure-like activity. This is the first time that this has happened. He does not carry a diagnosis of coronary artery disease or heart failure. He does have obstructive sleep apnea and wears CPAP. He went to outside hospital at 3 AM. The CTA over the ER was negative for PE but showed bronchitis and pneumonitis. He did receive Lasix and symptomatically felt better. He also had an echocardiogram which shows distal third of the myocardium including apex is akinetic. Echocardiographic picture suggestive of Takotsubo cardiomyopathy. Mild dilatation of left ventricle, mild increased left ventricular wall thickness. Global left ventricular systolic function is moderately reduced. Visually estimated ejection fraction is 35 to 40%. His CBC and BMP was otherwise unremarkable. He had a CT angiogram chest which showed no pulmonary embolism but did show groundglass opacity consistent with pneumonitis and peribronchial thickening consistent with bronchitis. There was also a few noncalcified nodules, there were enlarged mediastinal and bilateral hilar lymph nodes, diffuse circumferential thickening of esophageal wall, fatty liver, mild bilateral adrenal hypertrophy and atheromatous calcification along the left main left anterior descending and right coronary arteries. Patient was then transferred to [facility] for further cares. When I evaluated the patient at bedside, he was lying comfortably in bed no distress. He was not requiring oxygen. He was a little hypotensive. He was able to talk in complete sentences. He lips seemed alert and oriented Past Medical History obesity, hypertension, obstructive sleep apnea on CPAP, diabetes Past Surgical History no recent surgical history Social History Social History Socioeconomic History Marital status: Spouse name: Not on file Number of children: Not on file Years of education: Not on file Highest education level: Not on file Occupational History Not on file Tobacco Use Smoking status: Not on file Smokeless tobacco: Not on file Substance and Sexual Activity Alcohol use: Not on file Drug use: Not on file Sexual activity: Not on file Other Topics Concern Not on file Social History Narrative Not on file Social Determinants of Health Financial Resource Strain: Not on file Food Insecurity: Not on file Transportation Needs: Not on file Physical Activity: Not on file Stress: Not on file Social Connections: Not on file Intimate Partner Violence: Unknown (10/05/2023) [place] [facility] Environment Fear of Current or Ex-Partner: Not on file Emotionally Abused: Not on file Physically Abused: Not on file Sexually Abused: Not on file Physically or Sexually Abused: Not on file Housing Stability: Not on file Family History family history of coronary artery disease Allergies has no allergies on file. Prior to Admission Medications No medications prior to admission. Review of System 12 Point ROS was obtained and is negative except for the pertinent negatives And positives in the HPI OBJECTIVE: Vitals 24 Hours ([Min - Max] (Last Recorded Value)) GENERAL: The patient is well developed and nontoxic. Sittng in bed. No apparent distress. patient is obese VITAL SIGNS: Reviewed in the EMR. HEENT: Nonicteric sclerae, EOMI. Oropharynx clear. Moist mucous membranes. Conjunctivae appear well perfused. HEART: Regular rate and rhythm without murmurs. LUNGS: Clear to auscultation bilaterally. No wheezing and crackles. ABDOMEN: Soft, positive bowel sounds, nontender, no organomegaly. SKIN: No rash, no excessive bruising, petechiae, or purpura. NEUROLOGIC: Cranial nerves II-XII intact without motor/sensory deficit. MSK: Muscle wasting absent. Normal joint range, no tenderness swelling. No lower extremity edema. Labs Labs Reviewed - No data to display Imaging No image results found. Assessment Principal Problem: Heart failure (CMS/HCC) new onset heart failure with reduced ejection fraction 35 to 40% Shortness of breath, Bronchitis and pneumonitis (more content not included)... [facility] Summary Purpose Family History No Family History Records FoundNo Family History Records Found Advance Directives No Advanced Directives Records FoundNo Advanced Directives Records Found Additional Source Comments (unrecognized sect ion and content) No Status Records FoundNo Status Records Found INFORMATION SOURCE (unrecogn ized section and content) DATE CREATED AUTHOR 08/10/2022 [facility] DATE CREATED AUTHOR AUTHOR'S ORGANIZ ATION 10/10/2023 [facility] FOR RECORDS PERTAINING TO PATIENTS WHO ARE OR HAVE BEEN ENROLLED IN A CHEMICAL DEPENDENCY/SUBSTANCEABUSE PROGRAM, SOME INFORMATION MAY BE OMITTED. This clinical summary was aggregated from multiple sources. Caution should be exercised in using it in the provision of clinical care. This summary normalizes information from multiple sources, and as a consequence, information in this document may materially change the coding, format and clinical context of patient data. In addition, data may be omitted in some cases. CLINICAL DECISIONS SHOULD BE BASED ON THE PRIMARY CLINICAL RECORDS. [employer] provides no warranty or guarantee of the accuracy or completeness of information in this document.
== END 2023-10-11 10:18 | disposition home or self-care (01) ==
LOC: SLEEP 10:17
PROVIDERS: PCP Family Medicine; Visit Provider Family Medicine
DX: G47.33 Obstructive sleep apnea (adult) (pediatric) (principal)
CPT/HCPCS: 95806

== ENCOUNTER 2023-10-17 09:14 | Outpatient (OUT) | payer OTHER, SELFPAY ==
--- OUTSIDE RECORDS SUMMARY | 2023-10-17 09:19 | XMS_ITS | CCD ---
Author Name Unknown Address [address] [place] [address] Organization [facility] Care Team Providers Care Admissions Clerk Name Role Phone RAFAEL, DR ALTAMIRANO Admitting [...] Admitting Unavailable KATJANA, MARCIAL Mayers Attending Unavailable ZIEBRAO, DR JACOB Gonsalves Consulting Unavailable MARCIAL DENSON Consulting Unavailable RAFAEL, DR ALTAMIRANO Primary Care Unavailable MARIUM, DR BOLES Admitting Unavailable HAY, DR BOLES Attending Unavailable HAY, DR BOLES Consulting Unavailable ODILIAY, DR ALTAMIRANO Admitting Unavailable HOY, DR ALTAMIRANO Attending Unavailable HOY, DR ALTAMIRANO Primary Care Unavailable HOSaud, DR ALTAMIRANO Consulting Unavailable DESTINEE COSTA Referring Unavailab le GANGWANIDESTINEE Referring Unavailab le HOYADARSH Referring Unavailable DESTINEE COSTA Attending Unavailab le LUIS, SOPHIE Admitting Unavailable DESTINEE COSTA Consulting Unavailab le ZACK MONTGOMERY Attending Unavailable DESTINEE COSTA Referring Unavailab le Problems Active Problems Problem Classification Problem Date Documented Da te Episodic/Chronic Congestive heart failure; nonhypertensive (4 sources) Chronic systolic (congestive) heart failure; Translations: [Heart failure, unspecified] Onset: 10-05-2023 Chronic [...] Test Name Value Interpretation Reference Range Facility Follow-Upon 10-13-2023 Follow-Up [id number] Tera Roberto 1975 M Date Provider Department Center 10/13/2023 ZACK OLSON CARD [facility] Family History Problem Relation Age of Onset Heart attack Maternal Grandfather Family Status - Relation Status Age at Maternal Grandfather Level of Service:70241 [facility] OFFICE/OUTPATIENT ESTABLISHED MOD MDM 30 MIN Reason for Visit and Comments: Hospital Follow-up [832] Congestive Heart Failure [127] Hypertension [546176] [facility] 36on 10-11-2023 36 Called patient and left a message to call me to schedule a pulmonary hospital follow up with either Dr. Valenzuela or Dr. Diamond. [facility] 36on 10-10-2023 36 Discharge date: Call date: [...] was very happy with his experience at [facility] and he wanted to thank everyone for saving his life. [facility] Documentationon 10-10-2023 Documentation [id number] Tera Roberto 1975 M Date Provider Department Center 10/10/2023 GEOVANNI LOYOLAY [facility] HeartVAS No family history on file Reason for Visit and Comments: HF inpatient satisfaction survey sent. [Other] Normal [facility] Telephoneon 10-10-2023 Telephone [id number] Tera Roberto 1975 Date Provider Department Center 10/10/[id number] ACEVEDO [facility] HeartVAS No family history on file Normal [facility] 30on 10-09-2023 30 The patient is [...] and behaviors that affect risk of falls [place] fall precautions as indicated by assessment Problem: [...] the next 3 months Outcome: Progressing Normal [facility] BASIC METABOLIC PANELon Anion gap [Moles/Vol] 12 mmol/L Normal 7-20 [facility] Comment on above: Performed By: #### L [id number] ####[facility] ([facility])[address] [place] [address] Calcium [Mass/Vol] 8.9 mg/dL Normal 8.6-10.3 [facility] Comment on above: Performed By: #### L [id number] ####[facility] [place] [address] Chloride [Moles/Vol] 104 mmol/L Normal 98-107 [facility] Comment on above: Performed By: #### L [id number] ####[facility] ([facility])[address] [place] [address] CO2 [Moles/Vol] 25 mmol/L Normal 21-31 [facility] Comment on above: Performed By: #### L [id number] ####[facility] ([facility])[address] [place] [address] Creatinine [Mass/Vol] 0.89 mg/dL Normal 0.70-1.30 [facility] Comment on above: Performed By: #### L [id number] ####[facility] ([facility])[address] [place] [address] GLOMERULAR FILTRATION RATE ML/MIN/1.73 SQ M.PREDICTED 104.4 mL/min/1.73m*2 Normal >60.0 [facility] Comment on above: Result Comment: [facility]???s estimated glomerular filtration rate (eGFR) will no [...] of individuals. Performed By: #### L [id number] ####[facility] [place] [address] Glucose [Mass/Vol] 119 mg/dL High 70-100 [facility] Comment on above: Performed By: #### L [id number] ####[facility] ([facility]ER)[address] [place] [address] Potassium [Moles/Vol] 4.1 mmol/L Normal 3.5-5.1 [facility] Comment on above: Performed By: #### L [id number] ####[facility] ([facility] [place] [address] Sodium [Moles/Vol] 137 mmol/L Normal 136-145 [facility] Comment on above: Performed By: #### L [id number] ####[facility] ([facility] [place] [address] Urea nitrogen [Mass/Vol] 29 mg/dL High 7-25 [facility] Comment on above: Performed By: #### L [id number] ####[facility] ([facility] [place] [address] UREA NITROGEN/CREATININE (MASS RATIO) IN SER/PLAS 32.6 Normal [facility] Comment on above: Performed By: #### L [id number] ####[facility] ([facility] [place] [address] CBC WITH AUTO DIFFERENTIALon 10-09-2023 Basophils (Bld) [#/Vol] 0.04 10*3/uL Normal 0.00-0.20 [facility] Comment on above: Performed By: #### L [id number] ####[facility] ([facility] [place] [address] Basophils/100 WBC (Bld) 0.7 % Normal 0.0-1.0 [facility] Comment on above: Performed By: #### L [id number] ####[facility] ([facility]ER)[address] [place] [address] Eosinophils (Bld) [#/Vol] 0.12 10*3/uL Normal 0.00-0.50 [facility] Comment on above: Performed By: #### L [id number] ####[facility] ([facility])[address] [place] [address] Eosinophils/100 WBC (Bld) 2.1 % Normal 0.0-6.0 [facility] Comment on above: Performed By: #### L [id number] ####[facility] ([facility] [place] [address] Erythrocyte distribution width (RBC) [Ratio] 12.0 % Normal 11.5-15.0 [facility] Comment on above: Performed By: #### L [id number] ####[facility] ([facility] [place] [address] ERYTHROCYTE MEAN CORPUSCULAR HEMOGLOBIN CONCENTRATION (G/DL) BY AUTOMATED 34.2 g/dL Normal 32.0-35.0 [facility] Comment on above: Performed By: #### L [id number] ####[facility] ([facility] [place] [address] Hematocrit (Bld) [Volume fraction] 47.7 % Normal 39.0-55.0 [facility] Comment on above: Performed By: #### L [id number] ####[facility] ([facility])[address] [place] [address] Hemoglobin (Bld) [Mass/Vol] 16.3 g/dL Normal 13.0-17.0 [facility] Comment on above: Performed By: #### L [id number] ####[facility] ([facility])[address] [place] [address] Immature granulocytes (Bld) [#/Vol] 0.03 10*3/uL Normal 0.00-0.20 [facility] Comment on above: Performed By: #### L [id number] ####[facility] ([facility])[address] [place] [address] Immature granulocytes/100 WBC (Bld) 0.5 % Normal 0.0-1.0 [facility] Comment on above: Performed By: #### L [id number] ####[facility] ([facility])[address] [place] [address] Lymphocytes (Bld) [#/Vol] 1.51 10*3/uL Normal 1.20-4.00 [facility] Comment on above: Performed By: #### L [id number] ####[facility] ([facility])[address] [place] [address] Lymphocytes/100 WBC (Bld) 26.2 % Normal 20.0-45.0 [facility] Comment on above: Performed By: #### L [id number] ####[facility] ([facility])[address] [place] [address] MCH (RBC) [Entitic mass] 35.0 pg High 27.0-33.0 [facility] Comment on above: Performed By: #### L [id number] ####[facility] ([facility])[address] [place] [address] MCV (RBC) [Entitic vol] 102.4 fL High 82.0-98.0 [facility] Comment on above: Performed By: #### L [id number] ####[facility] ([facility])[address] [place] [address] Monocytes (Bld) [#/Vol] 0.80 10*3/uL Normal 0.10-1.00 [facility] Comment on above: Performed By: #### L [id number] ####[facility] ([facility] [place] [address] Monocytes/100 WBC (Bld) 13.9 % High 5.0-12.0 [facility] Comment on above: Performed By: #### L [id number] ####[facility] ([facility] [place] [address] Neutrophils (Bld) [#/Vol] 3.26 10*3/uL Normal 1.60-7.60 [facility] Comment on above: Performed By: #### L [id number] ####[facility] ([facility])[address] [place] [address] Neutrophils/100 WBC (Bld) 56.6 % Normal 40.0-72.0 [facility] Comment on above: Performed By: #### L [id number] ####[facility] ([facility])[address] [place] [address] NRBC (PER 100 WBCS) BY AUTOMATED COUNT 0.0 % Normal 0 [facility] Comment on above: Performed By: #### L [id number] ####[facility] ([facility])[address] [place] [address] PLATELETS (10*3/UL) IN BLOOD AUTOMATED COUNT 181 10*3/uL Normal 150-400 [facility] Comment on above: Performed By: #### L [id number] ####[facility] ([facility])[address] [place] [address] RBC (Bld) [#/Vol] 4.66 10*6/uL Normal 4.20-5.70 [facility] Comment on above: Performed By: #### L [id number] ####[facility] ([facility])[address] [place] [address] WBC (Bld) [#/Vol] 5.76 10*3/uL Normal 4.00-10.60 [facility] Comment on above: Performed By: #### L [id number] ####[facility] ([facility])[address] [place] [address] MAGNESIUMon 10-09-2023 Magnesium [Mass/Vol] 2.1 mg/dL Normal 1.9-2.7 [facility] Comment on above: Performed By: #### L [id number] #### [facility] ([facility]) [address] [place] [address] POCT GLUCOSE METER UNSOLICIT ED RESULTSon 10-09-2023 Glucose [Mass/Vol] 160 mg/dL High 70-105 [facility] Comment on above: Order Comment: Waive d Testing in the ED is performed under the ED CLIA certificate #[id number]. Result Comment: [email or web address] Performed By: #### L [id number] ####[facility] ([facility] [place] [address] Glucose [Mass/Vol] 148 mg/dL High 70-105 [facility] Comment on above: Order Comment: Waive d Testing in the ED is performed under the ED CLIA certificate #[id number]. Result Comment: [email or web address] Performed By: #### L [id number] ####[facility] ([facility])[address] [place] [address] Glucose [Mass/Vol] 146 mg/dL High 70-105 [facility] Comment on above: Order Comment: Waive d Testing in the ED is performed under the ED CLIA certificate #[id number]. Result Comment: [email or web address] Performed By: #### L [id number] #### [facility] ([facility]) [address] [place] [address] 30on 10-08-2023 30 The patient is Moderately [...] and behaviors that affect risk of falls [place] fall precautions as indicated by assessment Educate [...] and prevent overall improvement and discharge Normal [facility] 30 The patient is Moderately Stable - [...] and behaviors that affect risk of falls [place] fall precautions as indicated by assessment Problem: [...] the next 3 months Outcome: Progressing Normal [facility] 30 The patient is Moderately Stable - Low risk of patient condition declining or worsening The patient's goals for the shift include rest The clinical goals for the shift include vss/comfort Problem: Pain - Adult Goal: Verbalizes/displays adequate comfort level or baseline comfort level Outcome: Progressing Problem: Safety - Adult Goal: Free from fall injury Outcome: Progressing Flowsheets (Taken 10/08/2023 0015) Free from fall injury: Assess patient frequently for physical needs Identify cognitive and physical deficits and behaviors that affect risk of falls [place] fall precautions as indicated by assessment Educate patient/family on patient safety, including physical limitations Instruct patient to call for assistance with activity based on assessment Modify environment to reduce risk of injury Problem: Discharge Planning Goal: Discharge to home or other facility with appropriate resources Outcome: Progressing Flowsheets (Taken 10/08/2023 0015) Discharge to home or other facility with [...] conditions affect the heart Outcome: Progressing Normal [facility] BASIC METABOLIC PANELon 03-0 Anion gap [Moles/Vol] 15 mmol/L Normal 7-20 [facility] Comment on above: Performed By: #### L [id number] #### [facility] ([facility]) [address] [place] [address] Calcium [Mass/Vol] 9.0 mg/dL Normal 8.6-10.3 [facility] Comment on above: Performed By: #### L [id number] #### [facility] ([facility]) [address] [place] [address] Chloride [Moles/Vol] 101 mmol/L Normal 98-107 [facility] Comment on above: Performed By: #### L [id number] #### [facility] ([facility]) [address] [place] [address] CO2 [Moles/Vol] 25 mmol/L Normal 21-31 [facility] Comment on above: Performed By: #### L [id number] #### [facility] ([facility]) [address] [place] [address] Creatinine [Mass/Vol] 1.01 mg/dL Normal 0.70-1.30 [facility] Comment on above: Performed By: #### L [id number] #### [facility] ([facility]) [address] [place] [address] GLOMERULAR FILTRATION RATE ML/MIN/1.73 SQ M.PREDICTED 90.6 mL/min/1.73m*2 Normal >60.0 [facility] Comment on above: Result Comment: [facility]???s estimated glomerular filtration rate (eGFR) will no [...] individuals. Performed By: #### L [id number] #### [facility] ([facility]) [address] [place] [address] Glucose [Mass/Vol] 160 mg/dL High 70-100 [facility] Comment on above: Performed By: #### L [id number] #### [facility] ([facility]) [address] [facility] [place] [place] [address] Potassium [Moles/Vol] 4.1 mmol/L Normal 3.5-5.1 [facility] Comment on above: Performed By: #### L [id number] #### [facility] ([facility]) [address] [place] [address] Sodium [Moles/Vol] 137 mmol/L Normal 136-145 [facility] Comment on above: Performed By: #### L [id number] #### [facility] ([facility]) [address] [facility] [place] [place] [address] Urea nitrogen [Mass/Vol] 34 mg/dL High 7-25 [facility] Comment on above: Performed By: #### L [id number] #### [facility] ([facility]) [address] [facility] [place] [place] [address] UREA NITROGEN/CREATININE (MASS RATIO) IN SER/PLAS 33.7 Normal [facility] Comment on above: Performed By: #### L [id number] #### [facility] [address] [place] [address] CBC WITH AUTO DIFFERENTIALon 10-08-2023 Basophils (Bld) [#/Vol] 0.06 10*3/uL Normal 0.00-0.20 [facility] Comment on above: Performed By: #### L [id number] #### [facility] ([facility]) [address] [place] [address] Basophils/100 WBC (Bld) 1.0 % Normal 0.0-1.0 [facility] Comment on above: Performed By: #### L [id number] #### [facility] ([facility]) [address] [place] [address] Eosinophils (Bld) [#/Vol] 0.12 10*3/uL Normal 0.00-0.50 [facility] Comment on above: Performed By: #### L [id number] #### [facility] ([facility]) [address] [place] [address] Eosinophils/100 WBC (Bld) 2.0 % Normal 0.0-6.0 [facility] Comment on above: Performed By: #### L [id number] #### [facility] ([facility]) [address] [place] [address] Erythrocyte distribution width (RBC) [Ratio] 12.2 % Normal 11.5-15.0 [facility] Comment on above: Performed By: #### L [id number] #### [facility] ([facility]) [address] [place] [address] ERYTHROCYTE MEAN CORPUSCULAR HEMOGLOBIN CONCENTRATION (G/DL) BY AUTOMATED 33.5 g/dL Normal 32.0-35.0 [facility] Comment on above: Performed By: #### L [id number] #### [facility] [address] [place] [address] Hematocrit (Bld) [Volume fraction] 48.0 % Normal 39.0-55.0 [facility] Comment on above: Performed By: #### L [id number] #### [facility] ([facility]ER) [address] [place] [address] Hemoglobin (Bld) [Mass/Vol] 16.1 g/dL Normal 13.0-17.0 [facility] Comment on above: Performed By: #### L [id number] #### [facility] [address] [address] Immature granulocytes (Bld) [#/Vol] 0.02 10*3/uL Normal 0.00-0.20 [facility] Comment on above: Performed By: #### L [id number] #### [facility] ([facility]) [address] [place] [address] Immature granulocytes/100 WBC (Bld) 0.3 % Normal 0.0-1.0 [facility] Comment on above: Performed By: #### L [id number] #### [facility] ([facility]) [address] [place] [address] Lymphocytes (Bld) [#/Vol] 1.47 10*3/uL Normal 1.20-4.00 [facility] Comment on above: Performed By: #### L [id number] #### [facility] ([facility]) [address] [place] [address] Lymphocytes/100 WBC (Bld) 24.6 % Normal 20.0-45.0 [facility] Comment on above: Performed By: #### L [id number] #### [facility] ([facility]) [address] [place] [address] MCH (RBC) [Entitic mass] 34.8 pg High 27.0-33.0 [facility] Comment on above: Performed By: #### L [id number] #### [facility] [address] [place] [address] MCV (RBC) [Entitic vol] 103.9 fL High 82.0-98.0 [facility] Comment on above: Performed By: #### L [id number] #### [facility] [address] [place] [address] Monocytes (Bld) [#/Vol] 0.85 10*3/uL Normal 0.10-1.00 [facility] Comment on above: Performed By: #### L [id number] #### [facility] [address] [place] [address] Monocytes/100 WBC (Bld) 14.2 % High 5.0-12.0 [facility] Comment on above: Performed By: #### L [id number] #### [facility] ([facility]) [address] [place] [address] Neutrophils (Bld) [#/Vol] 3.46 10*3/uL Normal 1.60-7.60 [facility] Comment on above: Performed By: #### L [id number] #### [facility] ([facility]) [address] [place] [address] Neutrophils/100 WBC (Bld) 57.9 % Normal 40.0-72.0 [facility] Comment on above: Performed By: #### L [id number] #### [facility] ([facility]) [address] [place] [address] NRBC (PER 100 WBCS) BY AUTOMATED COUNT 0.0 % Normal 0 [facility] Comment on above: Performed By: #### L [id number] #### [facility] ([facility]) [address] [place] [address] PLATELETS (10*3/UL) IN BLOOD AUTOMATED COUNT 196 10*3/uL Normal 150-400 [facility] Comment on above: Performed By: #### L [id number] #### [facility] [address] [place] [address] RBC (Bld) [#/Vol] 4.62 10*6/uL Normal 4.20-5.70 [facility] Comment on above: Performed By: #### L [id number] #### [facility] ([facility]) [address] [place] [address] WBC (Bld) [#/Vol] 5.98 10*3/uL Normal 4.00-10.60 [facility] Comment on above: Performed By: #### L [id number] #### [facility] ([facility]) [address] [place] [address] POCT GLUCOSE METER UNSOLICIT ED RESULTSon 10-08-2023 Glucose [Mass/Vol] 171 mg/dL High 70-105 [facility] Comment on above: Order Comment: Waive d Testing in the ED is performed under the ED CLIA certificate #[id number]. Result Comment: [email or web address] Performed By: #### L [id number] ####[facility] ([facility])[address] [facility] [address] Glucose [Mass/Vol] 128 mg/dL High 70-105 [facility] Comment on above: Order Comment: Waive d Testing in the ED is performed under the ED CLIA certificate #[id number]. Result Comment: [email or web address] Performed By: #### L [id number] ####[facility] ([facility])[address] [facility] [address] Glucose [Mass/Vol] 170 mg/dL High 70-105 [facility] Comment on above: Order Comment: Waive d Testing in the ED is performed under the ED CLIA certificate #[id number]. Result Comment: [email or web address] Performed By: #### L [id number] ####[facility] ([facility])[address] [facility] [address] Glucose [Mass/Vol] 174 mg/dL High 70-105 [facility] Comment on above: Order Comment: Waive d Testing in the ED is performed under the ED CLIA certificate #[id number]. Result Comment: [email or web address] Performed By: #### L [id number] ####[facility] ([facility])[address] [place] [address] 30on 10-07-2023 30 The patient is Moderately [...] and behaviors that affect risk of falls [place] fall precautions as indicated by assessment Educate [...] the next 3 months Outcome: Progressing Normal [facility] ANESon 10-07-2023 ANES -- Attestation signed by Yakelin Herrera MD at 10/07/2023 11:02 AM Yakelin Herrera MD, MPH, [facility], [facility], [facility] Interventional Cardiology Pager Email: [email or web address] Patient: Tera Roberto Procedure Information Date/Time: 10/07/23 1700 Procedures: Coronary angiography Right heart cath Location: [facility] AEROSPACE [facility]CHANIC 3 / [facility]ULAR [facility] (Cath) Providers: Yakelin Herrera MD Clinical information reviewed: Allergies Physical Exam Airway Mallampati: III TM distance: >3 FB Neck ROM: full Cardiovascular Rhythm: regular Rate: normal Dental Pulmonary Abdominal Anesthesia Plan ASA 3 Anesthetic plan and risks discussed with patient. Use of blood products discussed with patient who. Plan discussed with attending. Additional Equipment Requests Normal [facility] BASIC METABOLIC PANELon Anion gap [Moles/Vol] 14 mmol/L Normal 7-20 [facility] Comment on above: Performed By: #### L [id number] #### [facility] ([facility]) [address] [place] [address] Calcium [Mass/Vol] 9.5 mg/dL Normal 8.6-10.3 [facility] Comment on above: Performed By: #### L [id number] #### [facility] [address] [place] [address] Chloride [Moles/Vol] 101 mmol/L Normal 98-107 [facility] Comment on above: Performed By: #### L [id number] #### [facility] ([facility]) [address] [place] [address] CO2 [Moles/Vol] 26 mmol/L Normal 21-31 [facility] Comment on above: Performed By: #### L [id number] #### [facility] ([facility]) [address] [place] [address] Creatinine [Mass/Vol] 0.96 mg/dL Normal 0.70-1.30 [facility] Comment on above: Performed By: #### L [id number] #### [facility] ([facility]) [address] [place] [address] GLOMERULAR FILTRATION RATE ML/MIN/1.73 SQ M.PREDICTED 96.3 mL/min/1.73m*2 Normal >60.0 [facility] Comment on above: Result Comment: [facility]???s estimated glomerular filtration rate (eGFR) will no [...] individuals. Performed By: #### L [id number] #### [facility] [address] [place] [address] Glucose [Mass/Vol] 208 mg/dL High 70-100 [facility] Comment on above: Performed By: #### L [id number] #### [facility] [address] [place] [address] Potassium [Moles/Vol] 3.9 mmol/L Normal 3.5-5.1 [facility] Comment on above: Performed By: #### L [id number] #### [facility] ([facility]) [address] [facility] [place] [address] Sodium [Moles/Vol] 137 mmol/L Normal 136-145 [facility] Comment on above: Performed By: #### L [id number] #### [facility] ([facility]) [address] [place] [address] Urea nitrogen [Mass/Vol] 30 mg/dL High 7-25 [facility] Comment on above: Performed By: #### L [id number] #### [facility] ([facility]) [address] [place] [address] UREA NITROGEN/CREATININE (MASS RATIO) IN SER/PLAS 31.3 Normal [facility] Comment on above: Performed By: #### L [id number] #### [facility] ([facility]) [address] [place] [address] CBC WITH AUTO DIFFERENTIALon 10-07-2023 Basophils (Bld) [#/Vol] 0.03 10*3/uL Normal 0.00-0.20 [facility] Comment on above: Performed By: #### L [id number] #### [facility] ([facility]) [address] [place] [address] Basophils/100 WBC (Bld) 0.6 % Normal 0.0-1.0 [facility] Comment on above: Performed By: #### L [id number] #### [facility] ([facility]) [address] [place] [address] Eosinophils (Bld) [#/Vol] 0.11 10*3/uL Normal 0.00-0.50 [facility] Comment on above: Performed By: #### L [id number] #### [facility] [address] [place] [address] Eosinophils/100 WBC (Bld) 2.0 % Normal 0.0-6.0 [facility] Comment on above: Performed By: #### L [id number] #### [facility] [address] [place] [address] Erythrocyte distribution width (RBC) [Ratio] 12.2 % Normal 11.5-15.0 [facility] Comment on above: Performed By: #### L [id number] #### [facility] ([facility]) [address] [place] [address] ERYTHROCYTE MEAN CORPUSCULAR HEMOGLOBIN CONCENTRATION (G/DL) BY AUTOMATED 34.3 g/dL Normal 32.0-35.0 [facility] Comment on above: Performed By: #### L [id number] #### [facility] ([facility]) [address] [place] [address] Hematocrit (Bld) [Volume fraction] 50.5 % Normal 39.0-55.0 [facility] Comment on above: Performed By: #### L [id number] #### [facility] [address] [place] [address] Hemoglobin (Bld) [Mass/Vol] 17.3 g/dL High 13.0-17.0 [facility] Comment on above: Performed By: #### L [id number] #### [facility] ([facility]) [address] [facility] [place] [address] Immature granulocytes (Bld) [#/Vol] 0.02 10*3/uL Normal 0.00-0.20 [facility] Comment on above: Performed By: #### L [id number] #### [facility] ([facility]) [address] [facility] [place] [address] Immature granulocytes/100 WBC (Bld) 0.4 % Normal 0.0-1.0 [facility] Comment on above: Performed By: #### L [id number] #### [facility] ([facility]) [address] [place] [address] Lymphocytes (Bld) [#/Vol] 1.32 10*3/uL Normal 1.20-4.00 [facility] Comment on above: Performed By: #### L [id number] #### [facility] ([facility]) [address] [place] [address] Lymphocytes/100 WBC (Bld) 24.3 % Normal 20.0-45.0 [facility] Comment on above: Performed By: #### L [id number] #### [facility] ([facility]) [address] [place] [address] MCH (RBC) [Entitic mass] 34.9 pg High 27.0-33.0 [facility] Comment on above: Performed By: #### L [id number] #### [facility] ([facility]) [address] [place] [address] MCV (RBC) [Entitic vol] 102.0 fL High 82.0-98.0 [facility] Comment on above: Performed By: #### L [id number] #### [facility] ([facility]) [address] [place] [address] Monocytes (Bld) [#/Vol] 0.68 10*3/uL Normal 0.10-1.00 [facility] Comment on above: Performed By: #### L [id number] #### [facility] ([facility]) [address] [place] [address] Monocytes/100 WBC (Bld) 12.5 % High 5.0-12.0 [facility] Comment on above: Performed By: #### L [id number] #### [facility] ([facility]) [address] [place] [address] Neutrophils (Bld) [#/Vol] 3.27 10*3/uL Normal 1.60-7.60 [facility] Comment on above: Performed By: #### L [id number] #### [facility] ([facility]) [address] [place] [address] Neutrophils/100 WBC (Bld) 60.2 % Normal 40.0-72.0 [facility] Comment on above: Performed By: #### L [id number] #### [facility] ([facility]) [address] [place] [address] NRBC (PER 100 WBCS) BY AUTOMATED COUNT 0.0 % Normal 0 [facility] Comment on above: Performed By: #### L [id number] #### [facility] [address] [place] [address] PLATELETS (10*3/UL) IN BLOOD AUTOMATED COUNT 216 10*3/uL Normal 150-400 [facility] Comment on above: Performed By: #### L [id number] #### [facility] ([facility]) [address] [place] [address] RBC (Bld) [#/Vol] 4.95 10*6/uL Normal 4.20-5.70 [facility] Comment on above: Performed By: #### L [id number] #### [facility] ([facility]) [address] [place] [address] WBC (Bld) [#/Vol] 5.43 10*3/uL Normal 4.00-10.60 [facility] Comment on above: Performed By: #### L [id number] #### [facility] ([facility]) [address] [place] [address] CONSULTon 10-07-2023 CONSULT -- Attestation signed by [...] Roberto : 1975 Location: [id number] Attending: Destinee Costa MD Admit Date: 10/05/2023 Hospital Day: 2 [...] bilateral hilar lymphadenopathy. Patient was transferred to [facility] for further evaluation, echocardiogram showed EF to [...] No Food Insecurity (more content not included)... Normal [facility] HP 10-07-2023 HP -- Attestation signed by Yakelin Herrera MD at 10/07/2023 11:02 AM Yakelin Herrera MD, MPH, [facility], [facility], [facility] Interventional Cardiology Pager Email: [email or web address] H&P reviewed. Patient with multiple coronary artery [...] were addressed and answered. Florina Prasad MD [employer] - PGY5 [facility] Normal [facility] POCT GLUCOSE METER UNSOLICIT ED RESULTSon 10-07-2023 Glucose [Mass/Vol] 173 mg/dL High 70-105 [facility] Comment on above: Order Comment: Waive d Testing in the ED is performed under the ED CLIA certificate #[id number]. Result Comment: [email or web address] Performed By: #### L [id number] ####[facility] ([facility])[address] [place] [address] Glucose [Mass/Vol] 169 mg/dL High 70-105 [facility] Comment on above: Order Comment: Waive d Testing in the ED is performed under the ED CLIA certificate #[id number]. Result Comment: [email or web address] Performed By: #### L [id number] ####[facility] ([facility])[address] [place] [address] Glucose [Mass/Vol] 242 mg/dL High 70-105 [facility] Comment on above: Order Comment: Waive d Testing in the ED is performed under the ED CLIA certificate #[id number]. Result Comment: [email or web address] Performed By: #### L [id number] #### [facility] ([facility]) [address] [place] [address] 30on 10-06-2023 30 The patient is Moderately [...] and behaviors that affect risk of falls [place] fall precautions as indicated by assessment Educate [...] and prevent overall improvement and discharge Normal [facility] 30 The patient is Moderately Stable - Low risk of patient condition declining or worsening The patient's goals for the shift include rest The clinical goals for the shift include comfort/vss Normal [facility] 30 The patient is Moderately Stable - [...] and maintained or improved Outcome: Progressing Normal [facility] B-TYPE NATRIURETIC PEPTIDEon 10-06-2023 Natriuretic peptide B (Bld) [Mass/Vol] 752 pg/mL High 0-100 [facility] Comment on above: Performed By: #### L [id number] #### [facility] ([facility]) [address] [place] [address] Natriuretic peptide B (Bld) [Mass/Vol] 711 pg/mL High 0-100 [facility] Comment on above: Performed By: #### L [id number] #### [facility] ([facility]) [address] [place] [address] BASIC METABOLIC PANELon - Anion gap [Moles/Vol] 16 mmol/L Normal 7-20 [facility] Comment on above: Performed By: #### L [id number] ####[facility] ([facility])[address] [place] [address] Calcium [Mass/Vol] 9.7 mg/dL Normal 8.6-10.3 [facility] Comment on above: Performed By: #### L [id number] ####[facility] ([facility])[address] [place] [address] Chloride [Moles/Vol] 99 mmol/L Normal 98-107 [facility] Comment on above: Performed By: #### L [id number] ####[facility] ([facility])[address] [place] [address] CO2 [Moles/Vol] 26 mmol/L Normal 21-31 [facility] Comment on above: Performed By: #### L [id number] ####[facility] [place] [address] Creatinine [Mass/Vol] 1.03 mg/dL Normal 0.70-1.30 [facility] Comment on above: Performed By: #### L [id number] ####[facility] ([facility])[address] [place] [address] GLOMERULAR FILTRATION RATE ML/MIN/1.73 SQ M.PREDICTED 88.5 mL/min/1.73m*2 Normal >60.0 [facility] Comment on above: Result Comment: [facility]???s estimated glomerular filtration rate (eGFR) will no [...] of individuals. Performed By: #### L [id number] ####[facility] ([facility])[address] [place] [address] Glucose [Mass/Vol] 185 mg/dL High 70-100 [facility] Comment on above: Performed By: #### L [id number] ####[facility] ([facility] [place] [address] Potassium [Moles/Vol] 4.3 mmol/L Normal 3.5-5.1 [facility] Comment on above: Performed By: #### L [id number] ####[facility] ([facility] [place] [address] Sodium [Moles/Vol] 137 mmol/L Normal 136-145 [facility] Comment on above: Performed By: #### L [id number] ####[facility] ([facility])[address] [place] [address] Urea nitrogen [Mass/Vol] 22 mg/dL Normal 7-25 [facility] Comment on above: Performed By: #### L [id number] ####[facility] ([facility])[address] [place] [address] UREA NITROGEN/CREATININE (MASS RATIO) IN SER/PLAS 21.4 Normal [facility] Comment on above: Performed By: #### L [id number] ####[facility] ([facility])[address] [place] [address] Anion gap [Moles/Vol] 16 mmol/L Normal 7-20 [facility] Comment on above: Performed By: #### L [id number] #### [facility] ([facility]) [address] [place] [address] Calcium [Mass/Vol] 9.6 mg/dL Normal 8.6-10.3 [facility] Comment on above: Performed By: #### L [id number] #### [facility] ([facility]) [address] [place] [address] Chloride [Moles/Vol] 99 mmol/L Normal 98-107 [facility] Comment on above: Performed By: #### L [id number] #### [facility] ([facility]) [address] [place] [address] CO2 [Moles/Vol] 26 mmol/L Normal 21-31 [facility] Comment on above: Performed By: #### L [id number] #### [facility] ([facility]) [address] [place] [address] Creatinine [Mass/Vol] 0.98 mg/dL Normal 0.70-1.30 [facility] Comment on above: Performed By: #### L [id number] #### [facility] ([facility]) [address] [place] [address] GLOMERULAR FILTRATION RATE ML/MIN/1.73 SQ M.PREDICTED 93.9 mL/min/1.73m*2 Normal >60.0 [facility] Comment on above: Result Comment: [facility]???s estimated glomerular filtration rate (eGFR) will no [...] individuals. Performed By: #### L [id number] #### [facility] ([facility]) [address] [place] [address] Glucose [Mass/Vol] 176 mg/dL High 70-100 [facility] Comment on above: Performed By: #### L [id number] #### [facility] ([facility]) [address] [place] [address] Potassium [Moles/Vol] 4.3 mmol/L Normal 3.5-5.1 [facility] Comment on above: Performed By: #### L [id number] #### [facility] ([facility]) [address] [place] [address] Sodium [Moles/Vol] 137 mmol/L Normal 136-145 [facility] Comment on above: Performed By: #### L [id number] #### [facility] ([facility]) [address] [place] [address] Urea nitrogen [Mass/Vol] 22 mg/dL Normal 7-25 [facility] Comment on above: Performed By: #### L [id number] #### [facility] ([facility]) [address] [place] [address] UREA NITROGEN/CREATININE (MASS RATIO) IN SER/PLAS 22.4 Normal [facility] Comment on above: Performed By: #### L [id number] #### [facility] ([facility]) [address] [place] [address] CBC WITH AUTO DIFFERENTIALon 02-29-2024 Basophils (Bld) [#/Vol] 0.06 10*3/uL Normal 0.00-0.20 [facility] Comment on above: Performed By: #### L [id number] ####[facility] ([facility])[address] [place] [address] Basophils/100 WBC (Bld) 1.0 % Normal 0.0-1.0 [facility] Comment on above: Performed By: #### L [id number] ####[facility] ([facility])[address] [place] [address] Eosinophils (Bld) [#/Vol] 0.11 10*3/uL Normal 0.00-0.50 [facility] Comment on above: Performed By: #### L [id number] ####[facility] ([facility])[address] [place] [address] Eosinophils/100 WBC (Bld) 1.8 % Normal 0.0-6.0 [facility] Comment on above: Performed By: #### L [id number] ####[facility] ([facility])[address] [place] [address] Erythrocyte distribution width (RBC) [Ratio] 12.3 % Normal 11.5-15.0 [facility] Comment on above: Performed By: #### L [id number] ####[facility] ([facility])[address] [place] [address] ERYTHROCYTE MEAN CORPUSCULAR HEMOGLOBIN CONCENTRATION (G/DL) BY AUTOMATED 34.1 g/dL Normal 32.0-35.0 [facility] Comment on above: Performed By: #### L [id number] ####[facility] ([facility])[address] [place] [address] Hematocrit (Bld) [Volume fraction] 50.7 % Normal 39.0-55.0 [facility] Comment on above: Performed By: #### L [id number] ####[facility] ([facility])[address] [place] [address] Hemoglobin (Bld) [Mass/Vol] 17.3 g/dL High 13.0-17.0 [facility] Comment on above: Performed By: #### L [id number] ####[facility] ([facility])[address] [place] [address] Immature granulocytes (Bld) [#/Vol] 0.02 10*3/uL Normal 0.00-0.20 [facility] Comment on above: Performed By: #### L [id number] ####[facility] (BE[facility]ER)[address] [place] [address] Immature granulocytes/100 WBC (Bld) 0.3 % Normal 0.0-1.0 [facility] Comment on above: Performed By: #### L [id number] ####[facility] (BE[facility]ER)[address] [place] [address] Lymphocytes (Bld) [#/Vol] 1.25 10*3/uL Normal 1.20-4.00 [facility] Comment on above: Performed By: #### L [id number] ####[facility] ([facility])[address] [place] [address] Lymphocytes/100 WBC (Bld) 20.1 % Normal 20.0-45.0 [facility] Comment on above: Performed By: #### L [id number] ####[facility] ([facility])[address] [place] [address] MCH (RBC) [Entitic mass] 34.7 pg High 27.0-33.0 [facility] Comment on above: Performed By: #### L [id number] ####[facility] ([facility]ER)[address] [place] [address] MCV (RBC) [Entitic vol] 101.6 fL High 82.0-98.0 [facility] Comment on above: Performed By: #### L [id number] ####[facility] ([facility]ER)[address] [place] [address] Monocytes (Bld) [#/Vol] 0.75 10*3/uL Normal 0.10-1.00 [facility] Comment on above: Performed By: #### L [id number] ####[facility] ([facility])[address] [place] [address] Monocytes/100 WBC (Bld) 12.0 % Normal 5.0-12.0 [facility] Comment on above: Performed By: #### L [id number] ####[facility] ([facility])[address] [place] [address] Neutrophils (Bld) [#/Vol] 4.04 10*3/uL Normal 1.60-7.60 [facility] Comment on above: Performed By: #### L [id number] ####[facility] ([facility])[address] [place] [address] Neutrophils/100 WBC (Bld) 64.8 % Normal 40.0-72.0 [facility] Comment on above: Performed By: #### L [id number] ####[facility] ([facility])[address] [place] [address] NRBC (PER 100 WBCS) BY AUTOMATED COUNT 0.0 % Normal 0 [facility] Comment on above: Performed By: #### L [id number] ####[facility] ([facility])[address] [place] [address] PLATELETS (10*3/UL) IN BLOOD AUTOMATED COUNT 219 10*3/uL Normal 150-400 [facility] Comment on above: Performed By: #### L [id number] ####[facility] ([facility])[address] [place] [address] RBC (Bld) [#/Vol] 4.99 10*6/uL Normal 4.20-5.70 [facility] Comment on above: Performed By: #### L [id number] ####[facility] [place], [place] [address] WBC (Bld) [#/Vol] 6.23 10*3/uL Normal 4.00-10.60 [facility] Comment on above: Performed By: #### L [id number] ####[facility] [place] [address] CONSULTon 10-06-2023 CONSULT -- Attestation signed by [...] obesity, LARS, tobacco dependence intially presents to [facility] after sudden onset SOB. He woke [...] for takotsubo cardiomyopathy. Patient was transferred to [facility] for further evalaution. Upon arrival, patient is [...] 10/05/232032 (!) 150/97 36.7 ???C (98 ???F) 24 97 % -- -- 10/05/231999 -- [...] Value Ventricular Rate 88 Atrial Rate 88 VA Interval 162 QRS DURATION 84 QT Interval 404 QTC CALCULATION(BAZETT) 488 P Otto 50 R-Otto 0 T Wave Otto 61 Impression Sinus rhythm with occasional Premature [...] 12 l (more content not included)... Normal [facility] CONSULT Clinical Nutrition Assessment Name: Tera Roberto [...] last 7 days Lab Units 10/06/23 0711 10/05/23210610/05/232038 POCT GLUCOSE mg/dL 183* 229* -- HEMOGLOBIN [...] with questions and contact the dietitian via [employer] chat 8A-4P Tuesday-Tuesday. Or call the dietitian's office at extension [phone]. For s/holidays, the dietitian's can be reached by paging [phone] from 9A-3P. Unable to be reached via [employer] on Tuesday & .) Normal [facility] HPon 10-06-2023 HP -- Attestation signed by Carlos Avendnao MD at 10/06/2023 4:20 PM I personally [...] obesity, LARS, tobacco dependence intially presents to [facility] after sudden onset SOB. He woke [...] for takotsubo cardiomyopathy. Patient was transferred to [facility] for further evalaution. Upon arrival, patient is [...] Value Ventricular Rate 88 Atrial Rate 88 VA Interval 162 QRS DURATION 84 QT Interval 404 QTC CALCULATION(BAZETT) 488 P Otto 50 R-Otto 0 T Wave Otto 61 Impression Sinus rhythm with occasional Premature [...] 12 l (more content not included)... Normal [facility] LEGIONELLA ANTIGEN, URINEon 10-06-2023 LEGIONELLA AG, UR Negative Normal NEG [facility] Comment on above: Result Comment: L. p neumophila serogroup 1 antigen not detected. A negative result does not exclude infection with Leginella pnemophila serogroup 1 nor does it rule out other microbial-caused respiratory infections of disease caused by other serogroups of Legionella pneumophila. Test Performed by [employer] [address] [place] [id number] - Released 10/06/2023 20:50 Performed By: #### L [id number] ####[facility] [employer] [id number] [place] [address] LIPID PANELon 10-06-2023 CHOL/HDL 4.5 mg/dL Normal [facility] Comment on above: Performed By: #### L [id number] #### [facility] ([facility]ER) [address] [place] [address] Cholesterol [Mass/Vol] 229 mg/dL High 120-200 [facility] Comment on above: Performed By: #### L [id number] #### [facility] ([facility]) [address] [place] [address] CHOLESTEROL IN LDL (MG/DL) IN SERUM OR PLASMA BY CALCULATION Normal [facility] Comment on above: Result Comment: Calc ulated LDL invalid, triglycerides >400 mg/dl Performed By: #### L [id number] #### [facility] ([facility]) [address] [place] [address] Magnesium [Mass/Vol] 469 mg/dL High 40-149 [facility] Comment on above: Result Comment: TRIG LYCERIDE REFERENCE RANGE: 20 YEARS AND OLDER CARDIOVASCULAR RISK LESS THAN 150 mg/dL LOW RISK 150 TO 199 mg/dL BORDERLINE RISK 200 mg/dL AND GREATER HIGH RISK Performed By: #### L [id number] #### [facility] ([facility]) [address] [facility] [place] [address] Magnesium [Mass/Vol] 51 mg/dL Normal 23-92 [facility] Comment on above: Performed By: #### L [id number] #### [facility] ([facility]) [address] [facility] [place] [address] NON HDL CHOL. (LDL+VLDL) 178 Normal [facility] Comment on above: Performed By: #### L [id number] #### [facility] ([facility]) [address] [facility] [place] [address] TOTAL VLDL-C 94 mg/dL High 0-40 [facility] Comment on above: Performed By: #### L [id number] #### [facility] ([facility]) [address] [facility] [place] [address] POCT GLUCOSE METER UNSOLICIT ED RESULTSon 10-06-2023 Glucose [Mass/Vol] 276 mg/dL High 70-105 [facility] Comment on above: Order Comment: Waive d Testing in the ED is performed under the ED CLIA certificate #[id number]. Result Comment: [email or web address] Performed By: #### L [id number] #### [facility] ([facility]) [address] [facility] [place] [place] [address] Glucose [Mass/Vol] 187 mg/dL High 70-105 [facility] Comment on above: Order Comment: Waive d Testing in the ED is performed under the ED CLIA certificate #[id number]. Result Comment: [email or web address] Performed By: #### L [id number] #### [facility] ([facility]) [address] [address] Glucose [Mass/Vol] 183 mg/dL High 70-105 [facility] Comment on above: Order Comment: Waive d Testing in the ED is performed under the ED CLIA certificate #[id number]. Result Comment: [email or web address] Performed By: #### L [id number] #### [facility] ([facility]) [address] [place] [address] Glucose [Mass/Vol] 183 mg/dL High 70-105 [facility] Comment on above: Order Comment: Waive d Testing in the ED is performed under the ED CLIA certificate #[id number]. Result Comment: [email or web address] Performed By: #### L [id number] ####[facility] ([facility])[address] [place] [address] STREP PNEUMONIAE ANTIGEN, UR INEon 10-06-2023 STREPTOCOCCUS PNEUMONIAE AG PRESENCE IN URINE Negative Normal Negative [facility] Comment on above: Performed By: #### L [id number] ####[facility] ([facility])[address] [place] [address] TROPONIN Ion 10-06-2023 Troponin I.cardiac [Mass/Vol] 0.03 ng/mL Normal 0.00-0.04 [facility] Comment on above: Performed By: #### L [id number] ####[facility] ([facility])[address] [place] [address] CBCon 10-05-2023 Erythrocyte distribution width (RBC) [Ratio] 12.3 % Normal 11.5-15.0 [facility] Comment on above: Performed By: #### L [id number] #### [facility] ([facility]) [address] [place] [address] ERYTHROCYTE MEAN CORPUSCULAR HEMOGLOBIN CONCENTRATION (G/DL) BY AUTOMATED 33.8 g/dL Normal 32.0-35.0 [facility] Comment on above: Performed By: #### L [id number] #### [facility] ([facility]) [address] [place] [address] Hematocrit (Bld) [Volume fraction] 49.4 % Normal 39.0-55.0 [facility] Comment on above: Performed By: #### L [id number] #### [facility] ([facility]) [address] [place] [address] Hemoglobin (Bld) [Mass/Vol] 16.7 g/dL Normal 13.0-17.0 [facility] Comment on above: Performed By: #### L [id number] #### [facility] ([facility]) [address] [place] [address] IMMATURE PLATELET FRACTION % 11.1 % High 0.8-6.3 [facility] Comment on above: Performed By: #### L [id number] #### [facility] ([facility]) [address] [place] [address] MCH (RBC) [Entitic mass] 34.9 pg High 27.0-33.0 [facility] Comment on above: Performed By: #### L [id number] #### [facility] ([facility]) [address] [place] [address] MCV (RBC) [Entitic vol] 103.3 fL High 82.0-98.0 [facility] Comment on above: Performed By: #### L [id number] #### [facility] ([facility]) [address] [place] [address] PLATELETS (10*3/UL) IN BLOOD AUTOMATED COUNT 149 10*3/uL Low 150-400 [facility] Comment on above: Performed By: #### L [id number] #### [facility] ([facility]) [address] [place] [address] RBC (Bld) [#/Vol] 4.78 10*6/uL Normal 4.20-5.70 [facility] Comment on above: Performed By: #### L [id number] #### [facility] ([facility]) [address] [place] [address] WBC (Bld) [#/Vol] 6.46 10*3/uL Normal 4.00-10.60 [facility] Comment on above: Performed By: #### L [id number] #### [facility] ([facility]) [address] [place] [address] HEMOGLOBIN A1Con 10-05-2023 Glucose [Mass/Vol] 183 mg/dL Normal [facility] Comment on above: Performed By: #### L [id number] #### [facility] ([facility]) [address] [place] [address] HbA1c (Bld) [Mass fraction] 8.0 % High 4.0-6.0 [facility] Comment on above: Performed By: #### L [id number] #### [facility] ([facility]) [address] [place] [address] POCT GLUCOSE METER UNSOLICIT ED RESULTSon 10-05-2023 Glucose [Mass/Vol] 229 mg/dL High 70-105 [facility] Comment on above: Order Comment: Waive d Testing in the ED is performed under the ED CLIA certificate #[id number]. Result Comment: [email or web address] Performed By: #### L [id number] ####[facility] ([facility])[address] [place] [address] Covid-19 PCR (CVDTB)on 07-09 SARS-CoV-2 (COVID-19) RNA NIXON+probe Ql (Unsp spec) Detected Critically abnormal NOT DETECTED The Comment on above: Result Comment: This test is not yet approved or cleared by the [place] FDA. When there are no FDA-approved or cleared tests available, and other criteria are met, FDA can make tests available under an emergency access mechanism called an Emergency Use Authorization (EUA). The EUA for this test is supported by the [place] of Health and Human Service's (HHS's) declaration [...] used). Performed By: #### A 1C #### Laboratory [address] [address] [address] Bridger Aggarwal INFLUENZA A AND B AGon 08-03 INFLUANEGH SEE BELOW Normal The Comment on above: Result Comment: Nega tive for Flu A protein angiten. Infection due to Flu A cannot be ruled out. Flu A angiten in the sample may be below the detection limit of the test. Performed By: #### I NFLUAB #### Laboratory [address] [place] [address] Dr. Bridger Aggarwal [facility] SEE BELOW Normal The Comment on above: Result Comment: Nega tive for Flu B protein antigen. Infection due to Flu B cannot be ruled out. Flu B antigen in the sample may be below the detection limit of the test. Performed By: #### I NFLUAB #### Laboratory [address] [place] [address] Dr. Bridger Aggarwal INFLUENZA A AG Negative Normal NEGATIVE SEE COMMENT The Comment on above: Performed By: #### I NFLUAB #### Laboratory [address] [place] [address] Dr. Bridger Aggarwal INFLUENZA B AG Negative Normal NEGATIVE SEE COMMENT The Comment on above: Performed By: #### I NFLUAB #### Laboratory [address] [place] [address] Dr. Bridger Aggarwal INTERNAL CONTROLS Within Normal Limits Normal Wi thin Normal Limits The Comment on above: Performed By: #### I NFLUAB #### Laboratory [address] [place] [address] Dr. Bridger Aggarwal CULTURE WOUNDon 04-23-2022 CULTURE [...] F Oxacillin <=0.25 S F Normal The Comment on above: Performed By: #### A 1C #### Laboratory [address] [place] [address] [address] [address] Bridger Aggarwal Covid-19 PCR (CVDTB)on 03-09 SARS-CoV-2 (COVID-19) RNA NIXON+probe Ql (Unsp spec) Not detected Normal NOT DETECTED The Comment on above: Result Comment: This test is not yet approved or cleared by the [place] FDA. When there are no FDA-approved or cleared tests available, and other criteria are met, FDA can make tests available under an emergency access mechanism called an Emergency Use Authorization (EUA). The EUA for this test is supported by the [place] of Health and Human Service's (HHS's) declaration [...] SARS-CoV-2. Performed By: #### A 1C #### Laboratory [address] [place], [place] [address] Dr. Bridger Aggarwal Covid-19 PCR (CVDTB)on SARS-CoV-2 (COVID-19) RNA NIXON+probe Ql (Unsp spec) Not detected Normal NOT DETECTED The Comment on above: Result Comment: When diagnostic [...] for this test is supported by the [place] of Health and Human Service's declaration that [...] used). Performed By: #### A 1C #### Laboratory [address] [place] [address] Dr. Bridger Aggarwal T4 LABCORPon 01-01-2022 T4 [Mass/Vol] 4.7 ug/dL Normal 4.5-12.0 [facility] Comment on above: Performed By: #### A 1C #### Laboratory [address] [place] [address] Dr. Bridger Aggarwal FREE THYROXINE INDEX T7on FTI 1.69 Normal 1.30-4.50 [facility] Comment on above: Performed By: #### A 1C #### Laboratory [address] [place] [address] Dr. Bridger Aggarwal T3U 36.0 % Normal 33.0-40.0 The Comment on above: Performed By: #### A 1C #### Laboratory [address] [place] [address] Dr. Bridger Aggarwal T4 [Mass/Vol] 4.70 ug/dL Normal 4.50-12.10 [facility] Comment on above: Performed By: #### A 1C #### Laboratory [address] [place] [address] Dr. Bridger Aggarwal TSHon 12-28-2021 TSH 0.969 uIU/mL Normal 0.358-3.740 [facility] Comment on above: Performed By: #### A 1C #### Laboratory [address] [place] [address] Dr. Bridger Aggarwal TSH RANGE SEE BELOW Normal The Comment on above: Result Comment: <0.3 4 UIU/ml HYPERTHYROID 0.34-5.60 UIU/ml EUTHYROID >5.60 UIU/ml HYPOTHYROID Performed By: #### A 1C #### Laboratory [address] [place] [address] Dr. Bridger Aggarwal CBC AUTO DIFFon 12-26-2021 BASO # 0.0 103/ul Normal 0.0-0.1 [facility] Comment on above: Performed By: #### C BC #### Laboratory [address] [place] [address] Dr. Bridger Aggarwal Basophils/100 WBC (Bld) 0.4 % Normal 0.2-2.0 [facility] Comment on above: Performed By: #### C BC #### Laboratory [address] [place] [address] Dr. Bridger Aggarwal EO # 0.1 103/ul Normal 0.0-0.7 [facility] Comment on above: Performed By: #### C BC #### Laboratory [address] [place] [address] Dr. Bridger Aggarwal Eosinophils/100 WBC (Bld) 0.6 % Critically low 0.9-7.0 [facility] Comment on above: Performed By: #### C BC #### Laboratory [address] [place] [address] Dr. Bridger Aggarwal Erythrocyte distribution width (RBC) [Ratio] 12.0 % Normal 11.0-15.0 [facility] Comment on above: Performed By: #### C BC #### Laboratory [address] [place] [address] Dr. Bridger Aggarwal Hematocrit (Bld) [Volume fraction] 44.9 % Normal 42.0-54.0 [facility] Comment on above: Performed By: #### C BC #### Laboratory [address] [place] [address] Dr. Bridger Aggarwal Hemoglobin (Bld) [Mass/Vol] 15.4 g/dL Normal 14.0-18.0 [facility] Comment on above: Performed By: #### C BC #### Laboratory [address] [place] [address] Dr. Bridger Aggarwal IG # 0.03 10e3/ul Normal 0.00-0.03 [facility] Comment on above: Performed By: #### C BC #### Laboratory [address] [place] [address] Dr. Bridger Aggarwal IG % 0.3 % Normal 0.0-0.5 [facility] Comment on above: Performed By: #### C BC #### Laboratory [address] [place] [address] Dr. Bridger Aggarwal LYMPH # 1.5 103/ul Normal 1.2-3.8 [facility] Comment on above: Performed By: #### C BC #### Laboratory [address] [place] [address] Dr. Bridger Aggarwal Lymphocytes/100 WBC (Bld) 14.2 % Critically low 20.5-60.0 [facility] Comment on above: Performed By: #### C BC #### Laboratory [address] [place] [address] Dr. Bridger Aggarwal MANUAL DIFF REQ NO Normal [facility] Comment on above: Performed By: #### C BC #### Laboratory [address] [place] [address] Dr. Bridger Aggarwal MCH (RBC) [Entitic mass] 34.2 pg Critically high 25.9-34.0 [facility] Comment on above: Performed By: #### C BC #### Laboratory [address] [place] [address] Dr. Bridger Aggarwal MCHC (RBC) [Mass/Vol] 34.3 g/dL Normal 29.9-35.2 [facility] Comment on above: Performed By: #### C BC #### Laboratory [address] [place] [address] Dr. Bridger Aggarwal MCV (RBC) [Entitic vol] 99.8 fL Critically high 80.0-94.0 [facility] Comment on above: Performed By: #### C BC #### Laboratory [address] [place] [address] Dr. Bridger Aggarwal MONO # 0.7 103/ul Normal 0.3-0.8 [facility] Comment on above: Performed By: #### C BC #### Laboratory [address] [address] [address] Bridger Aggarwal Monocytes/100 WBC (Bld) 6.3 % Normal 1.7-12.0 [facility] Comment on above: Performed By: #### C BC #### Laboratory [address] [address] [address] Bridger Aggarwal NEUT # 8.2 103/ul Critically high 1.4-6.5 [facility] Comment on above: Performed By: #### C BC #### Laboratory [address] [address] [address] Bridger Aggarwal Neutrophils/100 WBC (Bld) 78.2 % Critically high 43.0-75.0 [facility] Comment on above: Performed By: #### C BC #### Laboratory [address] [place] [address] Dr. Bridger Aggarwal Platelet mean volume (Bld) [Entitic vol] 9.6 fL Normal 9.5-13.5 [facility] Comment on above: Performed By: #### C BC #### Laboratory [address] [place] [address] Dr. Bridger Aggarwal PLT 247 103/ul Normal 150-450 The Comment on above: Performed By: #### C BC #### Laboratory [address] [place] [address] Dr. Bridger Aggarwal RBC 4.50 106/ul Critically low 4.70-6.10 [facility] Comment on above: Performed By: #### C BC #### Laboratory [address] [place] [address] Dr. Bridger Aggarwal WBC 10.5 103/ul Normal 4.0-11.0 The Comment on above: Performed By: #### C BC #### Laboratory [address] [place] [address] HEAD WO CONon [...] JACOB LALA Date: 2021-12-26 13:30 Normal The PROF CHEM 8 (BAS METB)on Anion gap [Moles/Vol] 17.1 mmol/L Normal [facility] Comment on above: Performed By: #### A 1C #### Laboratory [address] [address] [address] Birdger Aggarwal Calcium [Mass/Vol] 9.4 mg/dL Normal 8.5-10.1 [facility] Comment on above: Performed By: #### A 1C #### Laboratory [address] [address] [address] Bridger Aggarwal Chloride [Moles/Vol] 97 mmol/L Critically low 98-107 [facility] Comment on above: Performed By: #### A 1C #### Laboratory [address] [address] [address] Bridger Aggarwal CO2 [Moles/Vol] 20.6 mmol/L Critically low 21.0-32.0 [facility] Comment on above: Performed By: #### A 1C #### Laboratory [address] [address] [address] Bridger Aggarwal Creatinine [Mass/Vol] 0.96 mg/dL Normal 0.70-1.30 [facility] Comment on above: Performed By: #### A 1C #### Laboratory [address] [address] [address] Bridger Aggarwal EGFR-AF JAPANESE >60 Normal >=60 [facility] Comment on above: Performed By: #### A 1C #### Laboratory [address] [address] [address] Bridger Aggarwal EGFR-NON AF JAPANESE >60 Normal >=60 [facility] Comment on above: Performed By: #### A 1C #### Laboratory [address] [address] [address] Bridger Aggarwal Glucose [Mass/Vol] 216 mg/dL Critically high 74-106 [facility] Comment on above: Performed By: #### A 1C #### Laboratory [address] [place] [address] Dr. Bridger Aggarwal Potassium [Moles/Vol] 3.7 mmol/L Normal 3.5-5.1 [facility] Comment on above: Performed By: #### A 1C #### Laboratory [address] [place] [address] Dr. Bridger Aggarwal Sodium [Moles/Vol] 131 mmol/L Critically low 136-145 [facility] Comment on above: Performed By: #### A 1C #### Laboratory [address] [place] [address] Dr. Bridger Aggarwal Urea nitrogen [Mass/Vol] 26.0 mg/dL Critically high 7.0-18.0 [facility] Comment on above: Performed By: #### A 1C #### Laboratory [address] [place] [address] Dr. Bridger Aggarwal Urea nitrogen/Creatinine [Mass ratio] 27.1 mg/mg Normal [facility] Comment on above: Performed By: #### A 1C #### Laboratory [address] [place] [address] Dr. Bridger Aggarwal CBC AUTO DIFFon 12-18-2021 BASO # 0.0 103/ul Normal 0.0-0.1 [facility] Comment on above: Performed By: #### A 1C #### Laboratory [address] [address] [address] Bridger Aggarwal Basophils/100 WBC (Bld) 0.4 % Normal 0.2-2.0 [facility] Comment on above: Performed By: #### A 1C #### Laboratory [address] [address] [address] Bridger Aggarwal EO # 0.1 103/ul Normal 0.0-0.7 The Comment on above: Performed By: #### A 1C #### Laboratory [address] [address] [address] Bridger Aggarwal Eosinophils/100 WBC (Bld) 1.2 % Normal 0.9-7.0 [facility] Comment on above: Performed By: #### A 1C #### Laboratory [address] [place] [address] Dr. Bridger Aggarwal Erythrocyte distribution width (RBC) [Ratio] 12.5 % Normal 11.0-15.0 [facility] Comment on above: Performed By: #### A 1C #### Laboratory [address] [place] [address] Dr. Bridger Aggarwal Hematocrit (Bld) [Volume fraction] 45.9 % Normal 42.0-54.0 [facility] Comment on above: Performed By: #### A 1C #### Laboratory [address] [place] [address] Dr. Bridger Aggarwal Hemoglobin (Bld) [Mass/Vol] 15.8 g/dL Normal 14.0-18.0 [facility] Comment on above: Performed By: #### A 1C #### Laboratory [address] [place] [address] Dr. Bridger Aggarwal IG # 0.04 10e3/ul Critically high 0.00-0.03 [facility] Comment on above: Performed By: #### A 1C #### Laboratory [address] [place] [address] Dr. Bridger Aggarwal IG % 0.5 % Normal 0.0-0.5 The Comment on above: Performed By: #### A 1C #### Laboratory [address] [address] [address] Bridger Aggarwal LYMPH # 1.7 103/ul Normal 1.2-3.8 The Comment on above: Performed By: #### A 1C #### Laboratory [address] [place] [address] Dr. Bridger Aggarwal Lymphocytes/100 WBC (Bld) 22.3 % Normal 20.5-60.0 [facility] Comment on above: Performed By: #### A 1C #### Laboratory [address] [place] [address] Dr. Bridger Aggarwal MANUAL DIFF REQ NO Normal [facility] Comment on above: Performed By: #### A 1C #### Laboratory [address] [place] [address] Dr. Bridger Aggarwal MCH (RBC) [Entitic mass] 34.3 pg Critically high 25.9-34.0 [facility] Comment on above: Performed By: #### A 1C #### Laboratory [address] [place] [address] Dr. Bridger Aggarwal MCHC (RBC) [Mass/Vol] 34.4 g/dL Normal 29.9-35.2 The Comment on above: Performed By: #### A 1C #### Laboratory [address] [place] [address] Dr. Bridger Aggarwal MCV (RBC) [Entitic vol] 99.6 fL Critically high 80.0-94.0 [facility] Comment on above: Performed By: #### A 1C #### Laboratory [address] [place] [address] Dr. Bridger Aggarwal MONO # 0.7 103/ul Normal 0.3-0.8 The Comment on above: Performed By: #### A 1C #### Laboratory [address] [place] [address] Dr. Bridger Aggarwal Monocytes/100 WBC (Bld) 8.6 % Normal 1.7-12.0 [facility] Comment on above: Performed By: #### A 1C #### Laboratory [address] [address] [address] Bridger Aggarwal NEUT # 5.2 103/ul Normal 1.4-6.5 [facility] Comment on above: Performed By: #### A 1C #### Laboratory [address] [address] [address] Bridger Aggarwal Neutrophils/100 WBC (Bld) 67.0 % Normal 43.0-75.0 [facility] Comment on above: Performed By: #### A 1C #### Laboratory [address] [address] [address] Bridger Aggarwal Platelet mean volume (Bld) [Entitic vol] 9.4 fL Critically low 9.5-13.5 [facility] Comment on above: Performed By: #### A 1C #### Laboratory [address] [place] [address] Dr. Bridger Aggarwal PLT 259 103/ul Normal 150-450 [facility] Comment on above: Performed By: #### A 1C #### Laboratory [address] [address] [address] Bridger Aggarwal RBC 4.61 106/ul Critically low 4.70-6.10 [facility] Comment on above: Performed By: #### A 1C #### Laboratory [address] [address] [address] Birdger Aggarwal WBC 7.8 103/ul Normal 4.0-11.0 [facility] Comment on above: Performed By: #### A 1C #### Laboratory [address] [place] [address] Dr. Bridger Aggarwal FREE T3on 12-18-2021 FREE T3 2.71 pg/mlL Normal 2.18-3.98 [facility] Comment on above: Performed By: #### C MP, T4, FT3, TSH, LIPID #### Laboratory [address] [place] [address] Dr. Bridger Aggarwal GLYCOHEMOGLOBIN A1Con 2021 ADA RECOMMENDATION SEE BELOW Normal [facility] Comment on above: Result Comment: ADA RECOMMENDED LIMIT 4.0 - 6.0 ADA THERAPEUTIC TARGET < 7.0 ACTION SUGGESTED > 7.0 Performed By: #### A 1C #### Laboratory [address] [address] [address] Bridger Aggarwal Glucose [Mass/Vol] 197 mg/dL Normal [facility] Comment on above: Performed By: #### A 1C #### Laboratory [address] [address] [address] Bridger Aggarwal HbA1c (Bld) [Mass fraction] 8.5 % Critically high 4.5-6.2 [facility] Comment on above: Performed By: #### A 1C #### Laboratory [address] [place] [address] Dr. Bridger Aggarwal LIPID PROFILEon 12-18-2021 CHOL-HDL RATIO NORM SEE BELOW Normal [facility] Comment on above: Result Comment: 3.3 - 4.4 LOW RISK 4.4 - 7.1 AVERAGE RISK 7.1 - 11.0 MODERATE RISK >11.0 HIGH RISK Performed By: #### C MP, T4, FT3, TSH, LIPID #### Laboratory [address] [place] [address] Dr. Bridger Aggarwal Cholesterol [Mass/Vol] 157 mg/dL Normal <=200 [facility] Comment on above: Performed By: #### C MP, T4, FT3, TSH, LIPID #### Laboratory [address] [place] [address] Dr. Bridger Aggarwal Cholesterol in HDL [Mass/Vol] 46 mg/dL Normal 40-60 [facility] Comment on above: Performed By: #### C MP, T4, FT3, TSH, LIPID #### Laboratory [address] [place] [address] Dr. Bridger Aggarwal Cholesterol in LDL [Mass/Vol] 85.8 mg/dL Normal [facility] Comment on above: Performed By: #### C MP, T4, FT3, TSH, LIPID #### Laboratory [address] [place] [address] Dr. Bridger Aggarwal Cholesterol.total/C holesterol in HDL [Mass ratio] 3.4 {ratio} Normal [facility] Comment on above: Performed By: #### C MP, T4, FT3, TSH, LIPID #### Laboratory [address] [address] [address] Bridger Aggarwal HDL NORMAL > or = 60 mg/dl - LO W CARDIOVASCULAR RISK <40 mg/dl - HIGH CARDIOVASCULAR RISK Normal [facility] Comment on above: Performed By: #### C MP, T4, FT3, TSH, LIPID #### Laboratory [address] [address] [address] Bridger Aggarwal LDL CALC NORMAL SEE BELOW Normal [facility] Comment on above: Result Comment: <100 mg/dl OPTIMAL 100 - 129 mg/dl NEAR OR ABOVE OPTIMAL 130 - 159 mg/dl BORDERLINE HIGH 160 - 189 mg/dl HIGH >190 mg/dl VERY HIGH Performed By: #### C MP, T4, FT3, TSH, LIPID #### Laboratory [address] [address] [address] Bridger Aggarwal Triglyceride [Mass/Vol] 126 mg/dL Normal <=150 [facility] Comment on above: Performed By: #### C MP, T4, FT3, TSH, LIPID #### Laboratory [address] [address] [address] Bridger Aggarwal VLDL CALC 25.2 mg/dL Normal [facility] Comment on above: Performed By: #### C MP, T4, FT3, TSH, LIPID #### Laboratory [address] [address] [address] Bridger Aggarwal OCC BLD IMMUNO SCREENon 12-06 OCCULT BLOOD Negative Normal NEGATIVE [facility] Comment on above: Performed By: #### O BSCRN #### Laboratory [address] [address] [address] Bridger Aggarwal PROF 14(COMP METB)on 022 Albumin [Mass/Vol] 3.6 g/dL Normal 3.4-5.0 [facility] Comment on above: Performed By: #### C MP, T4, FT3, TSH, LIPID #### Laboratory [address] [address] [address] Bridger Aggarwal Albumin/Globulin [Mass ratio] 0.9 {ratio} Normal [facility] Comment on above: Performed By: #### C MP, T4, FT3, TSH, LIPID #### Laboratory [address] [place] [address] Dr. Bridger Aggarwal ALP [Catalytic activity/Vol] 84 U/L Normal 46-116 [facility] Comment on above: Performed By: #### C MP, T4, FT3, TSH, LIPID #### Laboratory [address] [place] [address] Dr. Bridger Aggarwal ALT [Catalytic activity/Vol] 45 U/L Normal 16-63 [facility] Comment on above: Performed By: #### C MP, T4, FT3, TSH, LIPID #### Laboratory [address] [place] [address] Dr. Bridger Aggarwal Anion gap [Moles/Vol] 12.1 mmol/L Normal [facility] Comment on above: Performed By: #### C MP, T4, FT3, TSH, LIPID #### Laboratory [address] [place] [address] Dr. Bridger Aggarwal AST [Catalytic activity/Vol] 20 U/L Normal 15-37 [facility] Comment on above: Performed By: #### C MP, T4, FT3, TSH, LIPID #### Laboratory [address] [place] [address] Dr. Bridger Aggarwal Bilirubin [Mass/Vol] 0.6 mg/dL Normal 0.2-1.0 [facility] Comment on above: Performed By: #### C MP, T4, FT3, TSH, LIPID #### Laboratory [address] [place] [address] Dr. Bridger Aggarwal Calcium [Mass/Vol] 9.1 mg/dL Normal 8.5-10.1 [facility] Comment on above: Performed By: #### C MP, T4, FT3, TSH, LIPID #### Laboratory [address] [place] [address] Dr. Bridger Aggarwal Chloride [Moles/Vol] 100 mmol/L Normal 98-107 [facility] Comment on above: Performed By: #### C MP, T4, FT3, TSH, LIPID #### Laboratory [address] [place] [address] Dr. Bridger Aggarwal CO2 [Moles/Vol] 28.4 mmol/L Normal 21.0-32.0 [facility] Comment on above: Performed By: #### C MP, T4, FT3, TSH, LIPID #### Laboratory [address] [place] [address] Dr. Bridger Aggarwal Creatinine [Mass/Vol] 0.99 mg/dL Normal 0.70-1.30 [facility] Comment on above: Performed By: #### C MP, T4, FT3, TSH, LIPID #### Laboratory [address] [place] [address] Dr. Bridger Aggarwal EGFR-AF JAPANESE >60 Normal >=60 [facility] Comment on above: Performed By: #### C MP, T4, FT3, TSH, LIPID #### Laboratory [address] [place] [address] Dr. Bridger Aggarwal EGFR-NON AF JAPANESE >60 Normal >=60 [facility] Comment on above: Performed By: #### C MP, T4, FT3, TSH, LIPID #### Laboratory [address] [place] [address] Dr. Bridger Aggarwal Globulin (S) [Mass/Vol] 3.8 g/dL Normal [facility] Comment on above: Performed By: #### C MP, T4, FT3, TSH, LIPID #### Laboratory [address] [place] [address] Dr. Bridger Aggarwal Glucose [Mass/Vol] 260 mg/dL Critically high 74-106 [facility] Comment on above: Performed By: #### C MP, T4, FT3, TSH, LIPID #### Laboratory [address] [place] [address] Dr. Bridger Aggarwal Potassium [Moles/Vol] 4.5 mmol/L Normal 3.5-5.1 [facility] Comment on above: Performed By: #### C MP, T4, FT3, TSH, LIPID #### Laboratory [address] [place] [address] Dr. Bridger Aggarwal Protein [Mass/Vol] 7.4 g/dL Normal 6.4-8.2 [facility] Comment on above: Performed By: #### C MP, T4, FT3, TSH, LIPID #### Laboratory [address] [place] [address] Dr. Bridger Aggarwal Sodium [Moles/Vol] 136 mmol/L Normal 136-145 [facility] Comment on above: Performed By: #### C MP, T4, FT3, TSH, LIPID #### Laboratory [address] [place] [address] Dr. Bridger Aggarwal Urea nitrogen [Mass/Vol] 17.0 mg/dL Normal 7.0-18.0 [facility] Comment on above: Performed By: #### C MP, T4, FT3, TSH, LIPID #### Laboratory [address] [place] [address] Dr. Bridger Aggarwal Urea nitrogen/Creatinine [Mass ratio] 17.2 mg/mg Normal [facility] Comment on above: Performed By: #### C MP, T4, FT3, TSH, LIPID #### Laboratory [address] [place] [address] Dr. Bridger Aggarwal T4on 12-18-2021 T4 [Mass/Vol] 4.80 ug/dL Normal 4.50-12.10 [facility] Comment on above: Performed By: #### C MP, T4, FT3, TSH, LIPID #### Laboratory [address] [place] [address] Dr. Bridger Aggarwal TSHon 12-18-2021 TSH 1.496 uIU/mL Normal 0.358-3.740 [facility] Comment on above: Performed By: #### C MP, T4, FT3, TSH, LIPID #### Laboratory [address] [place] [address] Dr. Bridger Aggarwal TSH RANGE SEE BELOW Normal [facility] Comment on above: Result Comment: <0.3 4 UIU/ml HYPERTHYROID 0.34-5.60 UIU/ml EUTHYROID >5.60 UIU/ml HYPOTHYROID Performed By: #### C MP, T4, FT3, TSH, LIPID #### Laboratory [address] [address] [address] Bridger Aggarwal Encounters Encounter Date Encounter Type Care Provider Facility Start: 10-13-2023 End: 10-13[facility] Start: 10-06-2023 Evaluation and management of inpatient DESTINEE COSTA [facility] Start: 10-05-2023 End: 10-09-2023 Evaluation and management of inpatient ADARSH HORTON [facility] Start: 08-10-2022 End: 08-10-[address] ADARSH HORTON Facility:[facility] Start: 08-03-2022 End: 08-03-[address] ADARSH HORTON Facility:[facility] Start: 04-21-2022 End: 04-21-[address] ADARSH HORTON Facility:[facility] Start: 03-29-2022 End: 03-29-[address] ADARSH HROTON Facility:[facility] Start: 02-05-2022 End: 02-05-[address] ADARSH HORTON Facility:[facility] Start: 12-28-2021 End: 12-29-[address] ADARSH HORTON Facility:[facility] Start: 12-26-2021 End: 12-26-[address] ADARSH HORTON Facility:[facility] Start: 12-23-2021 Encounter for genera l adult medical examination without abnormal findings DR ADARSH HORTON [facility] Start: 12-18-2021 End: 12-19-[address] ADARSH HORTON Facility:[facility] Start: 12-18-2021 End: 12-19-2021 Encounter for general adult medical examination without abnormal findings DR ADARSH HORTON Facility:[facility] Procedures Date Procedure Procedure Detail Performing Clinician Start: 12-18-[address] GREG HORTON Comment on above: Performed By: #### P SAS #### Laboratory [id number] Bridger Aggarwal Payers Date Payer Category Payer Unknown [id number] 2.16.84 [id number] 1975 Unknown [id number] 2.16.84 [id number] 1975 Unknown [id number] 2.16.84 [id number] 1973 Unknown [id number] 2.16.84 [id number] 1973 Unknown [id number] 2.16.84 [id number] 1973 Unknown [id number] 2.16.84 [id number] 1973 Unknown [id number] 2.16.84 [id number] 1973 Unknown [id number] 2.16.84 [id number] 1961 Private Health Insurance [id number] 1961 Unknown [id number] Clinical Notes 10-05-2023 to 10-13-2023 Note Date & Type Note Facility 10-13-2023 Note Cardiovascular Medic [facility] SUBJECTIVE Chief Complaint Patient presents with Hospital Follow-up Congestive Heart Failure Hypertension Tera Roberto is a 48 y.o. male here for hospital follow-up. HPI PMHx: systolic heart failure, NICM, non-obstructive CAD, HTN, HLD alcohol abuse, tobacco dependence He has been feeling well since his discharge. He has been wearing the LifeVest with out issues. Denies c/o CP, dyspnea, orthopnea, PND, LE edema, dizziness/LH, palpitations, syncope. He has stopped drinking alcohol and smoking cigarettes. Discharge Summary (10/05/2023 - 10/09/2023 ) Final Discharge Diagnosis: New onset heart failure with reduced EF, 20-25%, NYHA I, with global hypokinesis NICMP Coronary artery disease- nonobstructive with sluggish coronary flow on [facility] 10/07/23 Hypertension Type 2 DM with A1C 8% Dyslipidemia Alcohol abuse Tobacco dependence Circumferential esophageal thickening-Outpatient GI Fup for concern of EGD, has hx of reflux, Cont PPI therapy Bilateral groundglass opacities and hilar lymphadenopathy. Be infectious versus inflammatory. Flu PCR and COVID-negative. Admission Diagnosis: Heart failure ([facility]) [I50.9] Hospital course: Tera Roberto is a 48 y.o. male with a PMH significant for T2DM, HTN, obesity, LARS, tobacco dependence intially presents to [facility] after sudden onset SOB. He woke [...] from ETOH use and was discharged home. Patient Active Problem List Diagnosis Heart failure ([facility]) Coronary artery disease involving [place] coronary artery of [place] heart without angina pectoris Benign hypertensive heart disease with heart failure ([facility]) NICM (nonischemic cardiomyopathy) ([facility]) Past Medical History: Diagnosis Date Alcohol abuse CHF (congestive heart failure) ([facility]) Coronary artery disease Diabetes mellitus ([facility]) Hyperlipidemia Hypertension Family History Problem Relation Name Age of Onset Heart attack Maternal Grandfather Social History Tobacco Use Smoking status: Former Packs/day: 0.50 Years: 10.00 Additional pack years: 0.00 Total pack years: 5.00 Types: Cigarettes Quit date: 10/07/2023 Years since quittin.0 Smokeless tobacco: Never Substance Use Topics Alcohol use: Not Currently No Known Allergies Review of Systems Constitutional: Negative for chills, decreased appetite, fever, malaise/fatigue and weight gain. Cardiovascular: Positive for leg swelling. Negative for chest pain, dyspnea on exertion, irregular heartbeat, near-syncope, orthopnea, palpitations, paroxysmal nocturnal dyspnea and syncope. Hematologic/Lymphatic: Negative for bleeding problem. Does not bruise/bleed easily. OBJECTIVE Visit Vitals BP 110/80 (BP Location: Right arm, Patient Position: Sitting) Pulse 95 Ht 1.753 m (5' 9 ) Wt 116 kg (255 lb) SpO2 96% BMI 37.66 kg/m??? Smoking Status Former BSA 2.38 m??? Medications: Current Outpatient Medications: aspirin 81 mg chewable tablet, Chew 1 tablet (81 mg) with breakfast for 96 doses. Do not start before October 09, 2023., Disp: 30 tablet, Rfl: 0 glimepiride (Amaryl) 4 mg tablet, Take 8 mg by mouth before breakfast., Disp: , Rfl: pantoprazole (ProtoNix) 40 mg EC tablet, Take 1 tablet (40 mg) by mouth before breakfast and before evening meal for 60 doses. Do not crush, chew, or split., Disp: 60 tablet, Rfl: 0 venlafaxine XR (Effexor-XR) 75 mg 24 hr capsule, Take 75 mg by mouth in the morning. Do not crush or chew., Disp: , Rfl: atorvastatin (Lipitor) 80 mg tablet, Take 1 tablet (80 mg) by mouth at bedtime., Disp: 90 tablet, Rfl: 3 carvedilol (Coreg) 6.25 mg tablet, Take 1 tablet (6.25 mg) by mouth in the morning and at bedtime., Disp: 180 tablet, Rfl: 3 dapagliflozin propanediol (Farxiga) 10 mg, Take 1 tablet (10 mg) by mouth once daily as directed., Disp: 90 tablet, Rfl: 3 sacubitril-valsartan (Entresto) 24-26 mg tablet, Take 1 tablet by mouth in the morning and at bedtime., Disp: (more content not included)... [facility] 10-13-2023 Note Patient here for [facility] for new onset CHF. He underwent heart cath on 10/07/[address] Herrera. Was discharged with a LifeVest. He has completely stopped smoking and drinking alcohol. Denies chest pain, SOB, palpitations, and lightheadedness/syncope. Review of Systems All other systems reviewed and are negative. [facility] 10-09-2023 Note Patient discharged v ia private ride with . Patient educated on discharge and educated on heart failure education. All questions and concerns addressed at this time. [facility] 10-09-2023 Note 10/09/23 1403 CM Interventions CM Interventions Other (Comment) Follow up appointment for GI Clinic was scheduled for patient for tomorrow, however, per [facility] chart, patient has already cancelled. Dr Costa notified [facility] 10-09-2023 Note Awaiting life vest a pproval and fitting. OTM will continue to follow. 1200: Life Vest approved. Awaiting RN for fitting. [facility] 10-09-2023 Note Hospital Medicine Discharge Summary Final Discharge Diagnosis: New onset heart failure with reduced EF, 20-25%, NYHA I, with global hypokinesis NICMP Coronary artery disease- nonobstructive with sluggish coronary flow on [facility] 10/07/23 Hypertension Type 2 DM with A1C 8% Dyslipidemia Alcohol abuse Tobacco dependence Circumferential esophageal thickening-Outpatient GI Fup for concern of EGD, has hx of reflux, Cont PPI therapy Bilateral groundglass opacities and hilar lymphadenopathy. Be infectious versus inflammatory. Flu PCR and COVID-negative. Admission Diagnosis: Heart failure (CMS/HCC) [I50.9] Hospital course: Tera Roberto is a 48 y.o. male with a PMH significant for T2DM, HTN, obesity, LARS, tobacco dependence intially presents to [facility] after sudden onset SOB. He woke [...] was discharged home. Dear Dr. Rafael MD, Michael is advised to follow up with you within 1-2 weeks. Follow-up with: Scheduled appointments: Future Appointments Date Time Provider Department Center 10/13/2023 2:40 PM Zack Montgomery NP [facility] Your medication list START taking these [...] Medications These medications were sent to [facility] - [place], [place] - [address] [place] [address] [place] [address], [facility] [address] aspirin 81 mg chewable tablet atorvastatin 80 mg tablet carvedilol 6.25 mg tablet dapagliflozin propanediol 10 mg pantoprazole 40 mg EC tablet sacubitril-valsartan 24-26 mg tablet spironolactone 25 mg tablet Tera has No Known Allergies. Disposition: Home or Self Care () Discharge Condition: Stable Code Status: Full Code Diagnostic Results Hematology: Results from last 7 days Lab Units 10/09/238 10/08/23 033 WBC AUTO 10*3/uL 5.76 5.98 HEMOGLOBIN g/dL [...] (!) 129/100, pulse (more content not included)... [facility] 10-08-2023 Note balcony worker lalito valentin by Dakota, at [facility] Life [employer]est, on behalf of patient. Facesheet & cardiology progress note faxed to [facility] to initiate life vest referral. Awaiting approval / denial and next steps before patient can discharge. UPDATE: Insurance Defense Attorney reached out to Dakota who reports he is still waiting for insurance approval for life vest. This information was shared with physician, bedside nurse, and social sciences instructor. Dakota reports if he is approved today, he will attempt to get patient fitted for his life vest today as well. OTM team continuing to follow. [facility] 10-08-2023 Note Hospital Medicine Discharge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
[2023-10-17 10:18] LABS: Anion Gap 17.1; BUN Creatinine Ratio 20.2; Carbon Dioxide 24.1 mmol/L (21.0-32.0); Chloride 100 mmol/L (98-107); Estimated GFR (African America >60 (>=60); Estimated GFR (Non-African Ame >60 (>=60); Glucose 233 mg/dL (74-106); Potassium 4.2 mmol/L (3.5-5.1); Sodium 137 mmol/L (136-145)
== END 2023-10-17 09:15 | disposition home or self-care (01) ==
LOC: LAB 09:15
PROVIDERS: PCP Family Medicine; Visit Provider Nurse Practitioner Family
DX: I50.9 Heart failure, unspecified (principal)
CPT/HCPCS: 36415; 80048

== ENCOUNTER 2023-11-24 13:54 | Outpatient (OUT) | payer OTHER, SELFPAY ==
--- NOTE | 2023-11-24 14:00 | CA_ITS ---
Patient Name: TERA ROBERTO MR#: [id number] : 1975 Exam Date: 11/24/2023 Ordering Doctor: ZACK EPPERSON CNP ECHOCARDIOGRAM REPORTPlan: I will get a plain film of with an 8 PROCEDURE: CA ECHO LIMITED INDICATIONS: Heart failure COMPARISON: None. DESCRIPTION: Limited ECHOCARDIOGRAM Real-time transthoracic echocardiography with 2D and M-mode performed. QUALITY: Technical quality was limited. 69 , 252#, BSA 2.28 m2, BP 152/88 LEFT VENTRICLE: Normal chamber size. Mild concentric left ventricular hypertrophy. Systolic function is difficult to assess due to poor sound transmission but appears within normal limits. LV EF: Normal left ventricular ejection fraction, (55%). DIASTOLIC: ATRIAL SEPTUM: LEFT ATRIUM: Normal chamber size. RIGHT ATRIUM: Normal chamber size. RIGHT VENTRICLE: Normal chamber size. Normal systolic function. TRICUSPID VALVE: Normal mobility and thickness. MITRAL VALVE: Normal mobility and thickness. There is no mitral annular calcification. AORTIC VALVE: Normal trileaflet appearance. No visible sclerosis. Normal leaflet mobility. AORTIC ROOT: The aortic root is moderately dilated, measuring 4.1 cm. Ascending aorta is normal in size. PULMONIC VALVE: Normal thickness and mobility. PERICARDIUM: No evidence of pericardial effusion. IVC: IVC is normal in size with no collapse. PLEURA: CONCLUSION: 1. Mild concentric left ventricular hypertrophy with normal systolic function. LVEF is estimated at 55%. 2. Normal right ventricular size and systolic function. 3. Moderately dilated aortic root, measuring 4.1 cm. 4. No pericardial effusion. 5. Limited study performed with no Doppler interrogation as requested. 6. Technically difficult study due to poor sound transmission. Adult Echocardiography Procedure Report Left Ventricle LVEDD (3.7 - 5.6 cm): 5.16 cm LVESD (2.2 - 4.0 cm): 4.36 cm LVIVS thickness (0.6 - 1.2 cm): 1.16 cm LVPW thickness (0.5 - 1.0 cm): 1.37 cm LVOT Diameter 2.49 cm Left Atrium LA Volume Index (2D A2C): 23.47 ml/m2 Left Atrium Systolic Dimension: 3.59 cm Mitral Valve Right Ventricle Aorta AO Root Diam: 4.09 cm Ascending Ao Diam: 3.61 cm Aortic Valve Tricuspid Valve Pulmonic Valve Right Atrium Right Atrium Systolic Pressure: 32.04 ml, 32.04 ml Dictated by: Flex Panchal M.D. on 11/24/2023 at 17:45 Approved by: Flex Panchal M.D. on 11/24/2023 at 18:17
== END 2023-11-24 13:55 | disposition home or self-care (01) ==
LOC: CARD 13:54
PROVIDERS: PCP Family Medicine; Visit Provider Nurse Practitioner Family
DX: I50.22 Chronic systolic (congestive) heart failure (principal)
CPT/HCPCS: 93308; 93356; 93798

== ENCOUNTER 2023-12-05 10:07 | Outpatient (OUT) | payer OTHER, SELFPAY ==
[2023-12-05 10:36] LABS: Basophils Absolute Auto 0.1 10^3/uL (0.0-0.1); Basophils Percent Auto 0.8 % (0.2-2.0); Eosinophils Absolute Auto 0.1 10^3/uL (0.0-0.7); Eosinophils Percent Auto 1.7 % (0.9-7.0); Hematocrit 45.5 % (42.0-54.0); Hemoglobin 15.7 g/dL (14.0-18.0); Immature Granulocytes Abs Auto 0.03 10^3/uL (0.00-0.03); Immature Granulocytes Pct Auto 0.5 % (0.0-0.5); Lymphocytes Absolute Auto 1.2 10^3/uL (1.2-3.8); Lymphocytes Percent Auto 19.1 % (20.5-60.0); Mean Corpuscular HGB Conc 34.5 g/dL (29.9-35.2); Mean Corpuscular Hemoglobin 33.6 pg (25.9-34.0); Mean Corpuscular Volume 97.4 fL (80.0-94.0); Mean Platelet Volume 9.6 fL (9.5-13.5); Monocytes Absolute Auto 0.5 10^3/uL (0.3-0.8); Monocytes Percent Auto 8.3 % (1.7-12.0); Neutrophils Absolute Auto 4.5 10^3/uL (1.4-6.5); Neutrophils Percent Auto 69.6 % (43.0-75.0); Platelet Count 249 10^3/uL (150-450); Red Blood Count 4.67 10^6/uL (4.70-6.10); Red Cell Distribution Width 11.8 % (11.0-15.0); White Blood Count 6.4 10^3/uL (4.0-11.0)
[2023-12-05 11:20] LABS: Alanine Aminotransferase 31 U/L (16-63); Albumin Level 3.9 g/dL (3.4-5.0); Alkaline Phosphatase 156 U/L (46-116); Anion Gap 16.7; Aspartate Amino Transferase 12 U/L (15-37); BUN Creatinine Ratio 14.6; Bilirubin Total 0.6 mg/dL (0.2-1.0); Calcium 9.4 mg/dL (8.5-10.1); Chloride 98 mmol/L (98-107); Estimated GFR (African America >60 (>=60); Estimated GFR (Non-African Ame >60 (>=60); Globulin 3.9 g/dL; Glucose 383 mg/dL (74-106); Potassium 4.7 mmol/L (3.5-5.1); Sodium 135 mmol/L (136-145); Total Protein 7.8 g/dL (6.4-8.2)
== END 2023-12-05 10:08 | disposition home or self-care (01) ==
LOC: LAB 10:08
PROVIDERS: PCP Family Medicine; Visit Provider Internal Medicine Interventional Cardiology
DX: I25.10 Atherosclerotic heart disease of native coronary artery without angina pectoris (principal); I25.83 Coronary atherosclerosis due to lipid rich plaque
CPT/HCPCS: 36415; 80053; 85025

== ENCOUNTER 2023-12-09 07:21 | Outpatient (RCR) | payer OTHER, SELFPAY ==
--- NOTE | 2023-10-24 10:22 | CR1_ITS ---
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
--- NOTE | 2023-11-21 13:05 | CR1_ITS ---
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
--- NOTE | 2023-12-12 15:03 | PC.NURSE ---
Called to outreach patient as he has not been present for the last few visits with cardiac rehab. Patient did not answer and a voicemail was left requesting a call back regarding continuing the program or discharge.
--- NOTE | 2023-12-21 12:06 | CR1_ITS ---
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
--- NOTE | 2024-01-09 14:58 | CR1_ITS ---
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
== END 2024-01-09 08:44 | disposition home or self-care (01) ==
LOC: CR 07:21
PROVIDERS: PCP Family Medicine; Visit Provider Internal Medicine Interventional Cardiology
DX: I50.9 Heart failure, unspecified (principal)
CPT/HCPCS: 93798

== ENCOUNTER 2024-03-15 06:30 | Outpatient (OUT) | payer OTHER, SELFPAY ==
--- OUTSIDE RECORDS SUMMARY | 2024-03-15 06:36 | XMS_ITS | CCD ---
Author Organization [facility] Care Team Providers Care Customer Support Assistant Name Role Phone RAFAEL, DR ALTAMIRANO Admitting Unavailable HOY, DR ALTAMIRANO Attending Unavailable HOY, DR ALTAMIRANO Referring Unavailable HOY, DR ALTAMIRANO Primary Care Unavailable HOY, DR ALTAMIRANO Consulting Unavailable HOY, DR ALTAMIRANO Admitting Unavailable HOY, DR ALTAMIRANO Attending Unavailable HOY, DR ALTAMIRANO Primary Care Unavailable HOY, DR ALTAMIRANO Consulting Unavailable HOY, DR ALTAMIRANO Admitting Unavailable HOY, DR ALTAMIRANO Attending Unavailable ODILIAY, DR ALTAMIRANO Primary Care Unavailable HOY, DR ALTAMIRANO Consulting Unavailable HOY, DR ALTAMIRANO Admitting Unavailable HOY, DR ALTAMIRANO Attending Unavailable HOY, DR ALTAMIRANO Primary Care Unavailable HOY, DR ALTAMIRANO Consulting Unavailable HOY, DR ALTAMIRANO Admitting Unavailable HOY, DR ALTAMIRANO Attending Unavailable HOY, DR ALTAMIRANO Primary Care Unavailable HOY, DR ALTAMIRANO Consulting Unavailable HOY, DR ALTAMIRANO Primary Care Unavailable MARCIAL DENSON Admitting Unavailable KATMARCIAL BATES Attending Unavailable ZIEBRAO, DR JACOB Gonsalves Consulting Unavailable MARCIAL DENSON Consulting Unavailable RAFAEL, DR ALTAMIRANO Primary Care Unavailable MARIUM, DR BOLES Admitting Unavailable HAY, DR BOLES Attending Unavailable HAY, DR BOLES Consulting Unavailable ODILIAY, DR ALTAMIRANO Admitting Unavailable RAFAEL, DR ALTAMIRANO Attending Unavailable RAFAEL, DR ALTAMIRANO Primary Care Unavailable RAFAEL, DR ALTAMIRANO Consulting Unavailable ADARSH HALL Referring Unavailable DESTINEE COSTA Attending Unavailab le LUIS, SOPHIE Admitting Unavailable GANGWANIDESTINEE Consulting Unavailab le ELTAHAWY, EHAB Attending Unavailable ZACK MONTGOMERY Attending Unavailable DESTINEE COSTA Referring Unavailab le GANGWANIDESTINEE Referring Unavailab le GANGWADESTINEE AU Referring Unavailab le Problems Active Problems Problem Classification Problem Date Documented Date Episodic/Chronic Congestive heart failure; nonhypertensive (4 sources) Chronic systolic (congestive) heart failure; Translations: [Heart failure, unspecified] Onset: 10-05-2023 Chronic Coronary atherosclerosis and other heart disease (2 sources) Atherosclerotic heart disease of [place] coronary artery without angina pectoris; Translations: [Atherosclerotic heart disease of [place] coronary artery without angina pectoris] Onset: 10-13-2023 Chronic Diabetes mellitus with complications (4 sources) [...] Test Name Value Interpretation Reference Range Facility Office Visiton 12-05-2023 Follow-up visit [id number] Tera Roberto 1975 M Date Provider Department Center 12/05/2023 YAKELIN MICHELLE TATE Abreu Family History Problem Relation Age of Onset Heart attack Maternal Grandfather Family Status - Relation Status Age at Maternal Grandfather Level of Service:76938 ME OFFICE/OUTPATIENT ESTABLISHED MOD MDM 30 MIN Normal [facility] 36on 12-01-2023 36 Patient informed. Normal [facility] 36on 11-29-2023 36 Please let him know his EF improved to 55%. He no longer needs to wear the LifeVest. Follow-up as scheduled. Thanks! Normal [facility] Telephoneon 11-29-2023 Telephone [id number] Tera Roberto 1975 M Date Provider Department Center 11/29/2023 ZACK OLSON Family History Problem Relation Age of Onset Heart attack Maternal Grandfather Family Status - Relation Status Age at Maternal Grandfather Normal [facility] 36on 11-02-2023 36 2nd attempt: LMOM Normal [facility] Follow-Upon 10-13-2023 Follow-Up [id number] Tera Roberto 1975 [facility] Provider Department Center 10/13/2023 166-ZACK MONTGOMERY [facility] Family History Problem Relation Age of Onset Heart attack Maternal Grandfather Family Status - Relation Status Age at Maternal Grandfather Level of Service:36715 ME OFFICE/OUTPATIENT ESTABLISHED MOD MDM 30 MIN Reason for Visit and Comments: Hospital Follow-up [832] Congestive Heart Failure [127] Hypertension [760399] [facility] 10-11-2023 36 Called patient and left a message to call me to schedule a pulmonary hospital follow up with either Dr. Valenzuela or Dr. Diamond. [facility] 10-10-2023 36 Discharge date: Call date: 10/10/23 [...] was very happy with his experience at [facility] and he wanted to thank everyone for saving his life. [facility] Documentationon 10-10-2023 Documentation [id number] CamilleTera 1975 M Date Provider Department Center 10/10/202339566-CIDVGJIROSI ACEVED[facility] No family history on file Reason for Visit and Comments: HF inpatient satisfaction survey sent. [Other] [facility] Telephoneon 10-10-2023 Telephone [id number] CamilleTera 1975 M Date Provider Department Center 10/10/202314355-KBUWALSROSI [facility] No family history on file [facility] 3010-09-2023 30 The patient is Moderately Stable - [...] and behaviors that affect risk of falls [place] fall precautions as indicated by assessment Problem: [...] the next 3 months Outcome: Progressing Normal [facility] BASIC METABOLIC PANELon 03-0 Anion gap [Moles/Vol] 12 mmol/L Normal 7-20 [facility] Comment on above: Performed By: #### L [id number] ####[facility] ([facility]AKER)[address] [place] [address] Calcium [Mass/Vol] 8.9 mg/dL Normal 8.6-10.3 [facility] Comment on above: Performed By: #### L [id number] ####[facility] (BEAKER)[address] [facility] [place] [address] Chloride [Moles/Vol] 104 mmol/L Normal 98-107 [facility] Comment on above: Performed By: #### L [id number] ####[facility] (BEAKER)[address] [facility] [place] [address] CO2 [Moles/Vol] 25 mmol/L Normal 21-31 [facility] Comment on above: Performed By: #### L [id number] ####[facility] (BEAKER)[address] [place] [address] Creatinine [Mass/Vol] 0.89 mg/dL Normal 0.70-1.30 [facility] Comment on above: Performed By: #### L [id number] ####[facility] ([facility])[address] [place] [address] GLOMERULAR FILTRATION RATE ML/MIN/1.73 SQ M.PREDICTED 104.4 mL/min/1.73m*2 Normal >60.0 [facility] Comment on above: Result Comment: The [facility]???s estimated glomerular filtration rate (eGFR) will no [...] of individuals. Performed By: #### L [id number] ####[facility] ([facility])[address] [place] [address] Glucose [Mass/Vol] 119 mg/dL High 70-100 [facility] Comment on above: Performed By: #### L [id number] ####[facility] ([facility])[address] [place] [address] Potassium [Moles/Vol] 4.1 mmol/L Normal 3.5-5.1 [facility] Comment on above: Performed By: #### L [id number] ####[facility] ([facility])[address] [place] [address] Sodium [Moles/Vol] 137 mmol/L Normal 136-145 [facility] Comment on above: Performed By: #### L [id number] ####[facility] ([facility])[address] [place] [address] Urea nitrogen [Mass/Vol] 29 mg/dL High 7-25 [facility] Comment on above: Performed By: #### L [id number] ####[facility] ([facility])[address] [place] [address] UREA NITROGEN/CREATININE (MASS RATIO) IN SER/PLAS 32.6 Normal [facility] Comment on above: Performed By: #### L [id number] ####[facility] ([facility])[address] [place] [address] CBC WITH AUTO DIFFERENTIALon 10-09-2023 Basophils (Bld) [#/Vol] 0.04 10*3/uL Normal 0.00-0.20 [facility] Comment on above: Performed By: #### L [id number] ####[facility] ([facility])[address] [place] [address] Basophils/100 WBC (Bld) 0.7 % Normal 0.0-1.0 [facility] Comment on above: Performed By: #### L [id number] ####[facility] ([facility])[address] [place] [address] Eosinophils (Bld) [#/Vol] 0.12 10*3/uL Normal 0.00-0.50 [facility] Comment on above: Performed By: #### L [id number] ####[facility] ([facility])[address] [place] [address] Eosinophils/100 WBC (Bld) 2.1 % Normal 0.0-6.0 [facility] Comment on above: Performed By: #### L [id number] ####[facility] ([facility])[address] [place] [address] Erythrocyte distribution width (RBC) [Ratio] 12.0 % Normal 11.5-15.0 [facility] Comment on above: Performed By: #### L [id number] ####[facility] ([facility])[address] [place] [address] ERYTHROCYTE MEAN CORPUSCULAR HEMOGLOBIN CONCENTRATION (G/DL) BY AUTOMATED 34.2 g/dL Normal 32.0-35.0 [facility] Comment on above: Performed By: #### L [id number] ####[facility] (BEAKER)[address] [place] [address] Hematocrit (Bld) [Volume fraction] 47.7 % Normal 39.0-55.0 [facility] Comment on above: Performed By: #### L [id number] ####[facility] (BEAKER)[address] [place] [address] Hemoglobin (Bld) [Mass/Vol] 16.3 g/dL Normal 13.0-17.0 [facility] Comment on above: Performed By: #### L [id number] ####[facility] ([facility]ER)[address] [place] [address] Immature granulocytes (Bld) [#/Vol] 0.03 10*3/uL Normal 0.00-0.20 [facility] Comment on above: Performed By: #### L [id number] ####[facility] ([facility]AKER)[address] [place] [address] Immature granulocytes/100 WBC (Bld) 0.5 % Normal 0.0-1.0 [facility] Comment on above: Performed By: #### L [id number] ####[facility] ([facility]ER)[address] [place] [address] Lymphocytes (Bld) [#/Vol] 1.51 10*3/uL Normal 1.20-4.00 [facility] Comment on above: Performed By: #### L [id number] ####[facility] ([facility]ER)[address] [place] [address] Lymphocytes/100 WBC (Bld) 26.2 % Normal 20.0-45.0 [facility] Comment on above: Performed By: #### L [id number] ####[facility] (BE[facility]ER)[address] [place] [address] MCH (RBC) [Entitic mass] 35.0 pg High 27.0-33.0 [facility] Comment on above: Performed By: #### L [id number] ####[facility] ([facility]ER)[address] [place] [address] MCV (RBC) [Entitic vol] 102.4 fL High 82.0-98.0 [facility] Comment on above: Performed By: #### L [id number] ####[facility] (BEAKER)[address] [place] [address] Monocytes (Bld) [#/Vol] 0.80 10*3/uL Normal 0.10-1.00 [facility] Comment on above: Performed By: #### L [id number] ####[facility] (AKER)[address] [place] [address] Monocytes/100 WBC (Bld) 13.9 % High 5.0-12.0 [facility] Comment on above: Performed By: #### L [id number] ####[facility] (AKER)[address] [place] [address] Neutrophils (Bld) [#/Vol] 3.26 10*3/uL Normal 1.60-7.60 [facility] Comment on above: Performed By: #### L [id number] ####[facility] (AKER)[address] [place] [address] Neutrophils/100 WBC (Bld) 56.6 % Normal 40.0-72.0 [facility] Comment on above: Performed By: #### L [id number] ####[facility] ([facility]AKER)[address] [place] [address] NRBC (PER 100 WBCS) BY AUTOMATED COUNT 0.0 % Normal 0 [facility] Comment on above: Performed By: #### L [id number] ####[facility] ([facility]ER)[address] [place] [address] PLATELETS (10*3/UL) IN BLOOD AUTOMATED COUNT 181 10*3/uL Normal 150-400 [facility] Comment on above: Performed By: #### L [id number] ####[facility] ([facility]AKER)[address] [place] [address] RBC (Bld) [#/Vol] 4.66 10*6/uL Normal 4.20-5.70 [facility] Comment on above: Performed By: #### L [id number] ####[facility] ([facility])[address] [place] [address] WBC (Bld) [#/Vol] 5.76 10*3/uL Normal 4.00-10.60 [facility] Comment on above: Performed By: #### L [id number] ####[facility] ([facility])[address] [place] [address] MAGNESIUMon 10-09-2023 Magnesium [Mass/Vol] 2.1 mg/dL Normal 1.9-2.7 [facility] Comment on above: Performed By: #### L [id number] #### [facility] ([facility]) [address] [place] [address] POCT GLUCOSE METER UNSOLICIT ED RESULTSon 10-09-2023 Glucose [Mass/Vol] 160 mg/dL High 70-105 [facility] Comment on above: Order Comment: Waive d Testing in the ED is performed under the ED CLIA certificate #[id number]. Result Comment: [email or web address] Performed By: #### L [id number] ####[facility] ([facility])[address] [place] [address] Glucose [Mass/Vol] 148 mg/dL High 70-105 [facility] Comment on above: Order Comment: Waive d Testing in the ED is performed under the ED CLIA certificate #[id number]. Result Comment: [email or web address] Performed By: #### L [id number] ####[facility] ([facility])[address] [place] [address] Glucose [Mass/Vol] 146 mg/dL High 70-105 [facility] Comment on above: Order Comment: Waive d Testing in the ED is performed under the ED CLIA certificate #[id number]. Result Comment: [email or web address] Performed By: #### L [id number] ####[facility] ([facility])[address] [place] [address] 30on 10-08-2023 30 The patient is Moderately [...] and behaviors that affect risk of falls [place] fall precautions as indicated by assessment Educate [...] and prevent overall improvement and discharge Normal [facility] 30 The patient is Moderately Stable - Low risk of patient condition declining or worsening The patient's goals for the shift include comfort The clinical goals for the shift include hemodynamically stable Problem: Pain - Adult Goal: Verbalizes/displays adequate comfort level or baseline comfort level Outcome: Progressing Problem: Safety - Adult Goal: Free from fall injury Outcome: Progressing Flowsheets (Taken 10/08/2023 0755) Free from fall injury: Assess patient frequently for physical needs Identify cognitive and physical deficits and behaviors that affect risk of falls [place] fall precautions as indicated by assessment Problem: [...] the next 3 months Outcome: Progressing Normal [facility] 30 The patient is Moderately Stable - [...] and behaviors that affect risk of falls [place] fall precautions as indicated by assessment Educate [...] conditions affect the heart Outcome: Progressing Normal [facility] BASIC METABOLIC PANELon 03-0 Anion gap [Moles/Vol] 15 mmol/L Normal 7-20 [facility] Comment on above: Performed By: #### L [id number] #### [facility] (BEAKER) [address] [place] [address] Calcium [Mass/Vol] 9.0 mg/dL Normal 8.6-10.3 [facility] Comment on above: Performed By: #### L [id number] #### [facility] ([facility]ER) [address] [place] [address] Chloride [Moles/Vol] 101 mmol/L Normal 98-107 [facility] Comment on above: Performed By: #### L [id number] #### [facility] ([facility]ER) [address] [place] [address] CO2 [Moles/Vol] 25 mmol/L Normal 21-31 [facility] Comment on above: Performed By: #### L [id number] #### [facility] ([facility]ER) [address] [place] [address] Creatinine [Mass/Vol] 1.01 mg/dL Normal 0.70-1.30 [facility] Comment on above: Performed By: #### L [id number] #### [facility] [address] [place] [address] GLOMERULAR FILTRATION RATE ML/MIN/1.73 SQ M.PREDICTED 90.6 mL/min/1.73m*2 Normal >60.0 [facility] Comment on above: Result Comment: The [facility]???s estimated glomerular filtration rate (eGFR) will no [...] individuals. Performed By: #### L [id number] #### [facility] ([facility]) [address] [place] [address] Glucose [Mass/Vol] 160 mg/dL High 70-100 [facility] Comment on above: Performed By: #### L [id number] #### [facility] ([facility]) [address] [place] [address] Potassium [Moles/Vol] 4.1 mmol/L Normal 3.5-5.1 [facility] Comment on above: Performed By: #### L [id number] #### [facility] ([facility]) [address] [place] [address] Sodium [Moles/Vol] 137 mmol/L Normal 136-145 [facility] Comment on above: Performed By: #### L [id number] #### [facility] ([facility]) [address] [place] [address] Urea nitrogen [Mass/Vol] 34 mg/dL High 7-25 [facility] Comment on above: Performed By: #### L [id number] #### [facility] ([facility]) [address] [place] [address] UREA NITROGEN/CREATININE (MASS RATIO) IN SER/PLAS 33.7 Normal [facility] Comment on above: Performed By: #### L [id number] #### [facility] ([facility]) [address] [place] [address] CBC WITH AUTO DIFFERENTIALon 10-08-2023 Basophils (Bld) [#/Vol] 0.06 10*3/uL Normal 0.00-0.20 [facility] Comment on above: Performed By: #### L [id number] #### [facility] ([facility]) [address] [place] [address] Basophils/100 WBC (Bld) 1.0 % Normal 0.0-1.0 [facility] Comment on above: Performed By: #### L [id number] #### [facility] ([facility]) [address] [place] [address] Eosinophils (Bld) [#/Vol] 0.12 10*3/uL Normal 0.00-0.50 [facility] Comment on above: Performed By: #### L [id number] #### [facility] ([facility]ER) [address] [place] [address] Eosinophils/100 WBC (Bld) 2.0 % Normal 0.0-6.0 [facility] Comment on above: Performed By: #### L [id number] #### [facility] [address] [place] [address] Erythrocyte distribution width (RBC) [Ratio] 12.2 % Normal 11.5-15.0 [facility] Comment on above: Performed By: #### L [id number] #### [facility] [address] [place] [address] ERYTHROCYTE MEAN CORPUSCULAR HEMOGLOBIN CONCENTRATION (G/DL) BY AUTOMATED 33.5 g/dL Normal 32.0-35.0 [facility] Comment on above: Performed By: #### L [id number] #### [facility] [address] [place] [address] Hematocrit (Bld) [Volume fraction] 48.0 % Normal 39.0-55.0 [facility] Comment on above: Performed By: #### L [id number] #### [facility] ([facility]ER) [address] [place] [address] Hemoglobin (Bld) [Mass/Vol] 16.1 g/dL Normal 13.0-17.0 [facility] Comment on above: Performed By: #### L [id number] #### [facility] ([facility]ER) [address] [place] [address] Immature granulocytes (Bld) [#/Vol] 0.02 10*3/uL Normal 0.00-0.20 [facility] Comment on above: Performed By: #### L [id number] #### [facility] ([facility]ER) [address] [place] [address] Immature granulocytes/100 WBC (Bld) 0.3 % Normal 0.0-1.0 [facility] Comment on above: Performed By: #### L [id number] #### [facility] ([facility]) [address] [place] [address] Lymphocytes (Bld) [#/Vol] 1.47 10*3/uL Normal 1.20-4.00 [facility] Comment on above: Performed By: #### L [id number] #### [facility] ([facility]) [address] [place] [address] Lymphocytes/100 WBC (Bld) 24.6 % Normal 20.0-45.0 [facility] Comment on above: Performed By: #### L [id number] #### [facility] ([facility]) [address] [place] [address] MCH (RBC) [Entitic mass] 34.8 pg High 27.0-33.0 [facility] Comment on above: Performed By: #### L [id number] #### [facility] ([facility]) [address] [place] [address] MCV (RBC) [Entitic vol] 103.9 fL High 82.0-98.0 [facility] Comment on above: Performed By: #### L [id number] #### [facility] ([facility]) [address] [place] [address] Monocytes (Bld) [#/Vol] 0.85 10*3/uL Normal 0.10-1.00 [facility] Comment on above: Performed By: #### L [id number] #### [facility] ([facility]) [address] [place] [address] Monocytes/100 WBC (Bld) 14.2 % High 5.0-12.0 [facility] Comment on above: Performed By: #### L [id number] #### [facility] ([facility]) [address] [place] [address] Neutrophils (Bld) [#/Vol] 3.46 10*3/uL Normal 1.60-7.60 [facility] Comment on above: Performed By: #### L [id number] #### [facility] ([facility]) [address] [place] [address] Neutrophils/100 WBC (Bld) 57.9 % Normal 40.0-72.0 [facility] Comment on above: Performed By: #### L [id number] #### [facility] ([facility]) [address] [place] [address] NRBC (PER 100 WBCS) BY AUTOMATED COUNT 0.0 % Normal 0 [facility] Comment on above: Performed By: #### L [id number] #### [facility] ([facility]) [address] [place] [address] PLATELETS (10*3/UL) IN BLOOD AUTOMATED COUNT 196 10*3/uL Normal 150-400 [facility] Comment on above: Performed By: #### L [id number] #### [facility] ([facility]) [address] [place] [address] RBC (Bld) [#/Vol] 4.62 10*6/uL Normal 4.20-5.70 [facility] Comment on above: Performed By: #### L [id number] #### [facility] ([facility]) [address] [place] [address] WBC (Bld) [#/Vol] 5.98 10*3/uL Normal 4.00-10.60 [facility] Comment on above: Performed By: #### L [id number] #### [facility] ([facility]) [address] [place] [address] POCT GLUCOSE METER UNSOLICIT ED RESULTSon 10-08-2023 Glucose [Mass/Vol] 171 mg/dL High 70-105 [facility] Comment on above: Order Comment: Waive d Testing in the ED is performed under the ED CLIA certificate #[id number]. Result Comment: [email or web address] Performed By: #### L [id number] ####[facility] ([facility])[address] [place] [address] Glucose [Mass/Vol] 128 mg/dL High 70-105 [facility] Comment on above: Order Comment: Waive d Testing in the ED is performed under the ED CLIA certificate #[id number]. Result Comment: [email or web address] Performed By: #### L [id number] ####[facility] (BEAKER)[address] [place] [address] Glucose [Mass/Vol] 170 mg/dL High 70-105 [facility] [facility] Comment on above: Order Comment: Waive d Testing in the ED is performed under the ED CLIA certificate #[id number]. Result Comment: [email or web address] Performed By: #### L [id number] ####[facility] (BEAKER)[address] [place] [address] Glucose [Mass/Vol] 174 mg/dL High 70-105 [facility] Comment on above: Order Comment: Waive d Testing in the ED is performed under the ED CLIA certificate #[id number]. Result Comment: [email or web address] Performed By: #### L [id number] ####[facility] (BEAKER)[address] [place] [address] 30on 10-07-2023 30 The patient is Moderately [...] and behaviors that affect risk of falls [place] fall precautions as indicated by assessment Educate [...] the next 3 months Outcome: Progressing Normal [facility] Og 10-07-2023 SAPNAS -- Attestation signed by Yakelin Herrera MD at 10/07/2023 11:02 AM Yakelin Herrera MD, MPH, [facility], [facility], [facility] Interventional Cardiology Pager Email: [email or web address] Patient: Tera Roberto Procedure Information Date/Time: 10/07/23 1700 Procedures: Coronary angiography Right heart cath Location: [facility] DIRECTOR HOME 3 / [facility] (Cath) Providers: Yakelin Herrera MD Clinical information reviewed: Allergies Physical Exam Airway Mallampati: III TM distance: >3 FB Neck ROM: full Cardiovascular Rhythm: regular Rate: normal Dental Pulmonary Abdominal Anesthesia Plan ASA 3 Anesthetic plan and risks discussed with patient. Use of blood products discussed with patient who. Plan discussed with attending. Additional Equipment Requests Normal [facility] BASIC METABOLIC PANELon 03-0 Anion gap [Moles/Vol] 14 mmol/L Normal 7-20 [facility] Comment on above: Performed By: #### L [id number] #### [facility] (BEAKER) [address] [place] [address] Calcium [Mass/Vol] 9.5 mg/dL Normal 8.6-10.3 [facility] Comment on above: Performed By: #### L [id number] #### [facility] (BEAKER) [address] [place] [address] Chloride [Moles/Vol] 101 mmol/L Normal 98-107 [facility] Comment on above: Performed By: #### L [id number] #### [facility] (BEAKER) [address] [place] [address] CO2 [Moles/Vol] 26 mmol/L Normal 21-31 [facility] Comment on above: Performed By: #### L [id number] #### [facility] ([facility]) [address] [place] [address] Creatinine [Mass/Vol] 0.96 mg/dL Normal 0.70-1.30 [facility] Comment on above: Performed By: #### L [id number] #### [facility] ([facility]) [address] [place] [address] GLOMERULAR FILTRATION RATE ML/MIN/1.73 SQ M.PREDICTED 96.3 mL/min/1.73m*2 Normal >60.0 [facility] Comment on above: Result Comment: The [facility]???s estimated glomerular filtration rate (eGFR) will no [...] individuals. Performed By: #### L [id number] #### [facility] ([facility]) [address] [place] [address] Glucose [Mass/Vol] 208 mg/dL High 70-100 [facility] Comment on above: Performed By: #### L [id number] #### [facility] ([facility]) [address] [place] [address] Potassium [Moles/Vol] 3.9 mmol/L Normal 3.5-5.1 [facility] Comment on above: Performed By: #### L [id number] #### [facility] ([facility]) [address] [place] [address] Sodium [Moles/Vol] 137 mmol/L Normal 136-145 [facility] Comment on above: Performed By: #### L [id number] #### [facility] ([facility]) [address] [place] [address] Urea nitrogen [Mass/Vol] 30 mg/dL High 7-25 [facility] Comment on above: Performed By: #### L [id number] #### [facility] ([facility]) [address] [place] [address] UREA NITROGEN/CREATININE (MASS RATIO) IN SER/PLAS 31.3 Normal [facility] Comment on above: Performed By: #### L [id number] #### [facility] ([facility]) [address] [place] [address] CBC WITH AUTO DIFFERENTIALon 10-07-2023 Basophils (Bld) [#/Vol] 0.03 10*3/uL Normal 0.00-0.20 [facility] Comment on above: Performed By: #### L [id number] #### [facility] ([facility]) [address] [place] [address] Basophils/100 WBC (Bld) 0.6 % Normal 0.0-1.0 [facility] Comment on above: Performed By: #### L [id number] #### [facility] ([facility]) [address] [place] [address] Eosinophils (Bld) [#/Vol] 0.11 10*3/uL Normal 0.00-0.50 [facility] Comment on above: Performed By: #### L [id number] #### [facility] ([facility]) [address] [place] [address] Eosinophils/100 WBC (Bld) 2.0 % Normal 0.0-6.0 [facility] Comment on above: Performed By: #### L [id number] #### [facility] ([facility]) [address] [place] [address] Erythrocyte distribution width (RBC) [Ratio] 12.2 % Normal 11.5-15.0 [facility] Comment on above: Performed By: #### L [id number] #### [facility] ([facility]) [address] [place] [address] ERYTHROCYTE MEAN CORPUSCULAR HEMOGLOBIN CONCENTRATION (G/DL) BY AUTOMATED 34.3 g/dL Normal 32.0-35.0 [facility] Comment on above: Performed By: #### L [id number] #### [facility] ([facility]) [address] [place] [address] Hematocrit (Bld) [Volume fraction] 50.5 % Normal 39.0-55.0 [facility] Comment on above: Performed By: #### L [id number] #### [facility] ([facility]) [address] [place] [address] Hemoglobin (Bld) [Mass/Vol] 17.3 g/dL High 13.0-17.0 [facility] Comment on above: Performed By: #### L [id number] #### [facility] ([facility]) [address] [place] [address] Immature granulocytes (Bld) [#/Vol] 0.02 10*3/uL Normal 0.00-0.20 [facility] Comment on above: Performed By: #### L [id number] #### [facility] ([facility]) [address] [place] [address] Immature granulocytes/100 WBC (Bld) 0.4 % Normal 0.0-1.0 [facility] Comment on above: Performed By: #### L [id number] #### [facility] ([facility]) [address] [place] [address] Lymphocytes (Bld) [#/Vol] 1.32 10*3/uL Normal 1.20-4.00 [facility] Comment on above: Performed By: #### L [id number] #### [facility] ([facility]) [address] [place] [address] Lymphocytes/100 WBC (Bld) 24.3 % Normal 20.0-45.0 [facility] Comment on above: Performed By: #### L [id number] #### [facility] ([facility]) [address] [place] [address] MCH (RBC) [Entitic mass] 34.9 pg High 27.0-33.0 [facility] Comment on above: Performed By: #### L [id number] #### [facility] (BEAKER) [address] [place] [address] MCV (RBC) [Entitic vol] 102.0 fL High 82.0-98.0 [facility] Comment on above: Performed By: #### L [id number] #### [facility] (BEAKER) [address] [place] [address] Monocytes (Bld) [#/Vol] 0.68 10*3/uL Normal 0.10-1.00 [facility] Comment on above: Performed By: #### L [id number] #### [facility] ([facility]) [address] [place] [address] Monocytes/100 WBC (Bld) 12.5 % High 5.0-12.0 [facility] Comment on above: Performed By: #### L [id number] #### [facility] ([facility]) [address] [place] [address] Neutrophils (Bld) [#/Vol] 3.27 10*3/uL Normal 1.60-7.60 [facility] Comment on above: Performed By: #### L [id number] #### [facility] ([facility]) [address] [place] [address] Neutrophils/100 WBC (Bld) 60.2 % Normal 40.0-72.0 [facility] Comment on above: Performed By: #### L [id number] #### [facility] ([facility]) [address] [place] [address] NRBC (PER 100 WBCS) BY AUTOMATED COUNT 0.0 % Normal 0 [facility] Comment on above: Performed By: #### L [id number] #### [facility] ([facility]) [address] [place] [address] PLATELETS (10*3/UL) IN BLOOD AUTOMATED COUNT 216 10*3/uL Normal 150-400 [facility] Comment on above: Performed By: #### L [id number] #### [facility] [address] [place] [address] RBC (Bld) [#/Vol] 4.95 10*6/uL Normal 4.20-5.70 [facility] Comment on above: Performed By: #### L [id number] #### [facility] (BEAKER) [address] [place] [address] WBC (Bld) [#/Vol] 5.43 10*3/uL Normal 4.00-10.60 [facility] Comment on above: Performed By: #### L [id number] #### [facility] (BEAKER) [address] [place] [address] CONSULTon 10-07-2023 CONSULT -- Attestation signed by [...] bilateral hilar lymphadenopathy. Patient was transferred to [facility] for further evaluation, echocardiogram showed EF to [...] No Food Insecurity (more content not included)... [facility] HPon 10-07-2023 HP -- Attestation signed by Yakelin Herrera MD at 10/07/2023 11:02 AM Yakelin Herrera MD, MPH, [facility], [facility], [facility] Interventional Cardiology Pager Email: [email or web address]. Patient with multiple coronary artery [...] were addressed and answered. Florina Prasad MD Analysis Director - PGY5 [facility] Normal [facility] POCT GLUCOSE METER UNSOLICIT ED RESULTSon 10-07-2023 Glucose [Mass/Vol] 173 mg/dL High 70-105 [facility] Comment on above: Order Comment: Waive d Testing in the ED is performed under the ED CLIA certificate #[id number]. Result Comment: [email or web address] Performed By: #### L [id number] #### [facility] (BECelly) [address] [place] [address] Glucose [Mass/Vol] 169 mg/dL High 70-105 [facility] Comment on above: Order Comment: Waive d Testing in the ED is performed under the ED CLIA certificate #[id number]. Result Comment: [email or web address] Performed By: #### L [id number] ####[facility] (BECelly)[address] [place] [address] Glucose [Mass/Vol] 242 mg/dL High 70-105 [facility] Comment on above: Order Comment: Waive d Testing in the ED is performed under the ED CLIA certificate #[id number]. Result Comment: [email or web address] Performed By: #### L [id number] #### [facility] (Celly) [address] [place] [address] 30on 10-06-2023 30 The patient is Moderately [...] and behaviors that affect risk of falls [place] fall precautions as indicated by assessment Educate [...] and prevent overall improvement and discharge Normal [facility] 30 The patient is Moderately Stable - Low risk of patient condition declining or worsening The patient's goals for the shift include rest The clinical goals for the shift include comfort/vss Normal [facility] 30 The patient is Moderately Stable - [...] and maintained or improved Outcome: Progressing Normal [facility] B-TYPE NATRIURETIC PEPTIDEon 10-06-2023 Natriuretic peptide B (Bld) [Mass/Vol] 752 pg/mL High 0-100 [facility] Comment on above: Performed By: #### L [id number] #### [facility] (BEAKER) [address] [place] [address] Natriuretic peptide B (Bld) [Mass/Vol] 711 pg/mL High 0-100 [facility] Comment on above: Performed By: #### L [id number] #### [facility] [address] [place] [address] BASIC METABOLIC PANELon 09-09 Anion gap [Moles/Vol] 16 mmol/L Normal 7-20 [facility] Comment on above: Performed By: #### L [id number] ####[facility] [place] [address] Calcium [Mass/Vol] 9.7 mg/dL Normal 8.6-10.3 [facility] Comment on above: Performed By: #### L [id number] ####[facility] (BEAKER)[address] [place] [address] Chloride [Moles/Vol] 99 mmol/L Normal 98-107 [facility] Comment on above: Performed By: #### L [id number] ####[facility] (BEAKER)[address] [place] [address] CO2 [Moles/Vol] 26 mmol/L Normal 21-31 [facility] Comment on above: Performed By: #### L [id number] ####[facility] (BEAKER)[address] [place] [address] Creatinine [Mass/Vol] 1.03 mg/dL Normal 0.70-1.30 [facility] Comment on above: Performed By: #### L [id number] ####[facility] (BEAKER)[address] [place] [address] GLOMERULAR FILTRATION RATE ML/MIN/1.73 SQ M.PREDICTED 88.5 mL/min/1.73m*2 Normal >60.0 [facility] Comment on above: Result Comment: The [facility]???s estimated glomerular filtration rate (eGFR) will no [...] of individuals. Performed By: #### L [id number] ####[facility] ([facility])[address] [place] [address] Glucose [Mass/Vol] 185 mg/dL High 70-100 [facility] Comment on above: Performed By: #### L [id number] ####[facility] ([facility])[address] [place] [address] Potassium [Moles/Vol] 4.3 mmol/L Normal 3.5-5.1 [facility] Comment on above: Performed By: #### L [id number] ####[facility] ([facility])[address] [place] [address] Sodium [Moles/Vol] 137 mmol/L Normal 136-145 [facility] Comment on above: Performed By: #### L [id number] ####[facility] (BEAKER)[address] [place] [address] Urea nitrogen [Mass/Vol] 22 mg/dL Normal 7-25 [facility] Comment on above: Performed By: #### L [id number] ####[facility] [place] [address] UREA NITROGEN/CREATININE (MASS RATIO) IN SER/PLAS 21.4 Normal [facility] Comment on above: Performed By: #### L [id number] ####[facility] (BEAKER)[address] [place] [address] Anion gap [Moles/Vol] 16 mmol/L Normal 7-20 [facility] Comment on above: Performed By: #### L [id number] #### [facility] ([facility] [address] [place] [address] Calcium [Mass/Vol] 9.6 mg/dL Normal 8.6-10.3 [facility] Comment on above: Performed By: #### L [id number] #### [facility] ([facility]) [address] [place] [address] Chloride [Moles/Vol] 99 mmol/L Normal 98-107 [facility] Comment on above: Performed By: #### L [id number] #### [facility] ([facility]) [address] [place] [address] CO2 [Moles/Vol] 26 mmol/L Normal 21-31 [facility] Comment on above: Performed By: #### L [id number] #### [facility] ([facility]) [address] [place] [address] Creatinine [Mass/Vol] 0.98 mg/dL Normal 0.70-1.30 [facility] Comment on above: Performed By: #### L [id number] #### [facility] ([facility]) [address] [place] [address] GLOMERULAR FILTRATION RATE ML/MIN/1.73 SQ M.PREDICTED 93.9 mL/min/1.73m*2 Normal >60.0 [facility] Comment on above: Result Comment: The [facility]???s estimated glomerular filtration rate (eGFR) will no [...] individuals. Performed By: #### L [id number] #### [facility] ([facility]) [address] [place] [address] Glucose [Mass/Vol] 176 mg/dL High 70-100 [facility] Comment on above: Performed By: #### L [id number] #### [facility] ([facility]) [address] [place] [address] Potassium [Moles/Vol] 4.3 mmol/L Normal 3.5-5.1 [facility] Comment on above: Performed By: #### L [id number] #### [facility] ([facility]) [address] [place] [address] Sodium [Moles/Vol] 137 mmol/L Normal 136-145 [facility] Comment on above: Performed By: #### L [id number] #### [facility] ([facility]) [address] [place] [address] Urea nitrogen [Mass/Vol] 22 mg/dL Normal 7-25 [facility] Comment on above: Performed By: #### L [id number] #### [facility] ([facility]) [address] [place] [address] UREA NITROGEN/CREATININE (MASS RATIO) IN SER/PLAS 22.4 Normal [facility] Comment on above: Performed By: #### L [id number] #### [facility] ([facility]) [address] [place] [address] CBC WITH AUTO DIFFERENTIALon 10-06-2023 Basophils (Bld) [#/Vol] 0.06 10*3/uL Normal 0.00-0.20 [facility] Comment on above: Performed By: #### L [id number] ####[facility] ([facility])[address] [place] [address] Basophils/100 WBC (Bld) 1.0 % Normal 0.0-1.0 [facility] Comment on above: Performed By: #### L [id number] ####[facility] ([facility])[address] [place] [address] Eosinophils (Bld) [#/Vol] 0.11 10*3/uL Normal 0.00-0.50 [facility] Comment on above: Performed By: #### L [id number] ####[facility] (BEAKER)[address] [place] [address] Eosinophils/100 WBC (Bld) 1.8 % Normal 0.0-6.0 [facility] Comment on above: Performed By: #### L [id number] ####[facility] ([facility] [place] [address] Erythrocyte distribution width (RBC) [Ratio] 12.3 % Normal 11.5-15.0 [facility] Comment on above: Performed By: #### L [id number] ####[facility] ([facility])[address] [place] [address] ERYTHROCYTE MEAN CORPUSCULAR HEMOGLOBIN CONCENTRATION (G/DL) BY AUTOMATED 34.1 g/dL Normal 32.0-35.0 [facility] Comment on above: Performed By: #### L [id number] ####[facility] [place] [address] Hematocrit (Bld) [Volume fraction] 50.7 % Normal 39.0-55.0 [facility] Comment on above: Performed By: #### L [id number] ####[facility] (BEAKER)[address] [place] [address] Hemoglobin (Bld) [Mass/Vol] 17.3 g/dL High 13.0-17.0 [facility] Comment on above: Performed By: #### L [id number] ####[facility] (BEAKER)[address] [place] [address] Immature granulocytes (Bld) [#/Vol] 0.02 10*3/uL Normal 0.00-0.20 [facility] Comment on above: Performed By: #### L [id number] ####[facility] (BEAKER)[address] [place] [address] Immature granulocytes/100 WBC (Bld) 0.3 % Normal 0.0-1.0 [facility] Comment on above: Performed By: #### L [id number] ####[facility] (BEAKER)[address] [place] [address] Lymphocytes (Bld) [#/Vol] 1.25 10*3/uL Normal 1.20-4.00 [facility] Comment on above: Performed By: #### L [id number] ####[facility] (BEAKER)[address] [place] [address] Lymphocytes/100 WBC (Bld) 20.1 % Normal 20.0-45.0 [facility] Comment on above: Performed By: #### L [id number] ####[facility] (BEAKER)[address] [place] [address] MCH (RBC) [Entitic mass] 34.7 pg High 27.0-33.0 [facility] Comment on above: Performed By: #### L [id number] ####[facility] (BEAKER)[address] [place] [address] MCV (RBC) [Entitic vol] 101.6 fL High 82.0-98.0 [facility] Comment on above: Performed By: #### L [id number] ####[facility] (BEAKER)[address] [place] [address] Monocytes (Bld) [#/Vol] 0.75 10*3/uL Normal 0.10-1.00 [facility] Comment on above: Performed By: #### L [id number] ####[facility] (BEAKER)[address] [place] [address] Monocytes/100 WBC (Bld) 12.0 % Normal 5.0-12.0 [facility] Comment on above: Performed By: #### L [id number] ####[facility] (BEAKER)[address] [place] [address] Neutrophils (Bld) [#/Vol] 4.04 10*3/uL Normal 1.60-7.60 [facility] Comment on above: Performed By: #### L [id number] ####[facility] (BEAKER)[address] [place] [address] Neutrophils/100 WBC (Bld) 64.8 % Normal 40.0-72.0 [facility] Comment on above: Performed By: #### L [id number] ####[facility] ([facility])[address] [place] [address] NRBC (PER 100 WBCS) BY AUTOMATED COUNT 0.0 % Normal 0 [facility] Comment on above: Performed By: #### L [id number] ####[facility] ([facility])[address] [place] [address] PLATELETS (10*3/UL) IN BLOOD AUTOMATED COUNT 219 10*3/uL Normal 150-400 [facility] Comment on above: Performed By: #### L [id number] ####[facility] ([facility])[address] [place] [address] RBC (Bld) [#/Vol] 4.99 10*6/uL Normal 4.20-5.70 [facility] Comment on above: Performed By: #### L [id number] ####[facility] ([facility])[address] [place] [address] WBC (Bld) [#/Vol] 6.23 10*3/uL Normal 4.00-10.60 [facility] Comment on above: Performed By: #### L [id number] ####[facility] ([facility])[address] [place] [address] CONSULTon 10-06-2023 CONSULT -- Attestation signed by [...] obesity, LARS, tobacco dependence intially presents to [facility] after sudden onset SOB. He woke up [...] for takotsubo cardiomyopathy. Patient was transferred to [facility] for further evalaution. Upon arrival, patient is [...] Value Ventricular Rate 88 Atrial Rate 88 ME Interval 162 QRS DURATION 84 QT Interval 404 QTC CALCULATION([place]) 488 P [place] 50 R-[place] 0 T Wave [place] 61 Impression Sinus rhythm with occasional Premature [...] 12 l (more content not included)... Normal [facility] CONSULT Clinical Nutrition Assessment Name: Tera Roberto [...] with questions and contact the dietitian via [employer] chat 8A-4P Tuesday-Tuesday. Or call the dietitian's office at extension [phone]. For weekends/holidays, the dietitian's can be reached by paging [phone] from 9A-3P. Unable to be reached via itBit chat on Tuesday & .) [facility] HP -- Attestation signed by Carlos [...] obesity, LARS, tobacco dependence intially presents to [facility] after sudden onset SOB. He woke up [...] for takotsubo cardiomyopathy. Patient was transferred to [facility] for further evalaution. Upon arrival, patient is [...] Value Ventricular Rate 88 Atrial Rate 88 ME Interval 162 QRS DURATION 84 QT Interval 404 QTC CALCULATION(BAZETT) 488 P [place] 50 R-[place] 0 T Wave [place] 61 Impression Sinus rhythm with occasional Premature [...] 12 l (more content not included)... Normal [facility] LEGIONELLA ANTIGEN, URINEon 10-06-2023 LEGIONELLA AG, UR Negative Normal NEG [facility] Comment on above: Result Comment: L. p neumophila serogroup 1 antigen not detected. A negative result does not exclude infection with Leginella pnemophila serogroup 1 nor does it rule out other microbial-caused respiratory infections of disease caused by other serogroups of Legionella pneumophila. Test Performed by [facility] [employer] [address] [place] [address] - Released 10/06/2023 20:50 Performed By: #### L [id number] ####[facility] [id number] [place] [address] LIPID PANELon 10-06-2023 CHOL/HDL 4.5 mg/dL Normal [facility] Comment on above: Performed By: #### L [id number] #### [facility] ([facility]) [address] [place] [address] Cholesterol [Mass/Vol] 229 mg/dL High 120-200 [facility] Comment on above: Performed By: #### L [id number] #### [facility] ([facility]) [address] [place] [address] CHOLESTEROL IN LDL (MG/DL) IN SERUM OR PLASMA BY CALCULATION Normal [facility] Comment on above: Result Comment: Calc ulated LDL invalid, triglycerides >400 mg/dl Performed By: #### L [id number] #### [facility] ([facility]) [address] [place] [address] Magnesium [Mass/Vol] 469 mg/dL High 40-149 [facility] Comment on above: Result Comment: TRIG LYCERIDE REFERENCE RANGE: 20 YEARS AND OLDER CARDIOVASCULAR RISK LESS THAN 150 mg/dL LOW RISK 150 TO 199 mg/dL BORDERLINE RISK 200 mg/dL AND GREATER HIGH RISK Performed By: #### L [id number] #### [facility] ([facility]) [address] [place] [address] Magnesium [Mass/Vol] 51 mg/dL Normal 23-92 [facility] Comment on above: Performed By: #### L [id number] #### [facility] ([facility]) [address] [place] [address] NON HDL CHOL. (LDL+VLDL) 178 Normal [facility] Comment on above: Performed By: #### L [id number] #### [facility] ([facility]) [address] [place] [address] TOTAL VLDL-C 94 mg/dL High 0-40 [facility] Comment on above: Performed By: #### L [id number] #### [facility] ([employer]) [address] [place] [address] POCT GLUCOSE METER UNSOLICIT ED RESULTSon 10-06-2023 Glucose [Mass/Vol] 276 mg/dL High 70-105 [facility] Comment on above: Order Comment: Waive d Testing in the ED is performed under the ED CLIA certificate #[id number]. Result Comment: [email or web address] Performed By: #### L [id number] #### [facility] ([employer]) [address] [facility] [place] [address] Glucose [Mass/Vol] 187 mg/dL High 70-105 [facility] Comment on above: Order Comment: Waive d Testing in the ED is performed under the ED CLIA certificate #[id number]. Result Comment: [email or web address] Performed By: #### L [id number] #### [facility] ([employer]) [address] [facility] [place] [address] Glucose [Mass/Vol] 183 mg/dL High 70-105 [facility] Comment on above: Order Comment: Waive d Testing in the ED is performed under the ED CLIA certificate #[id number]. Result Comment: [email or web address] Performed By: #### L [id number] #### [facility] ([employer]) [address] [facility] [place] [address] Glucose [Mass/Vol] 183 mg/dL High 70-105 [facility] Comment on above: Order Comment: Waive d Testing in the ED is performed under the ED CLIA certificate #[id number]. Result Comment: [email or web address] Performed By: #### L [id number] ####[facility] ([employer])[address] [facility] [facility] [place] [address] STREP PNEUMONIAE ANTIGEN, UR INEon 10-06-2023 STREPTOCOCCUS PNEUMONIAE AG PRESENCE IN URINE Negative Normal Negative [facility] Comment on above: Performed By: #### L [id number] ####[facility] ([facility])[address] [place] [address] TROPONIN Ion 10-06-2023 Troponin I.cardiac [Mass/Vol] 0.03 ng/mL Normal 0.00-0.04 [facility] Comment on above: Performed By: #### L [id number] ####[facility] ([facility])[address] [place] [address] CBCon 10-05-2023 Erythrocyte distribution width (RBC) [Ratio] 12.3 % Normal 11.5-15.0 [facility] Comment on above: Performed By: #### L [id number] #### [facility] ([facility]) [address] [place] [address] ERYTHROCYTE MEAN CORPUSCULAR HEMOGLOBIN CONCENTRATION (G/DL) BY AUTOMATED 33.8 g/dL Normal 32.0-35.0 [facility] Comment on above: Performed By: #### L [id number] #### [facility] ([facility]) [address] [place] [address] Hematocrit (Bld) [Volume fraction] 49.4 % Normal 39.0-55.0 [facility] Comment on above: Performed By: #### L [id number] #### [facility] ([facility]) [address] [place] [address] Hemoglobin (Bld) [Mass/Vol] 16.7 g/dL Normal 13.0-17.0 [facility] Comment on above: Performed By: #### L [id number] #### [facility] ([facility]) [address] [place] [address] IMMATURE PLATELET FRACTION % 11.1 % High 0.8-6.3 [facility] Comment on above: Performed By: #### L [id number] #### [facility] ([facility]) [address] [place] [address] MCH (RBC) [Entitic mass] 34.9 pg High 27.0-33.0 [facility] Comment on above: Performed By: #### L [id number] #### [facility] ([facility]) [address] [place] [address] MCV (RBC) [Entitic vol] 103.3 fL High 82.0-98.0 [facility] Comment on above: Performed By: #### L [id number] #### [facility] ([facility]) [address] [place] [address] PLATELETS (10*3/UL) IN BLOOD AUTOMATED COUNT 149 10*3/uL Low 150-400 [facility] Comment on above: Performed By: #### L [id number] #### [facility] ([facility]) [address] [place] [address] RBC (Bld) [#/Vol] 4.78 10*6/uL Normal 4.20-5.70 [facility] Comment on above: Performed By: #### L [id number] #### [facility] ([facility]) [address] [place] [address] WBC (Bld) [#/Vol] 6.46 10*3/uL Normal 4.00-10.60 [facility] Comment on above: Performed By: #### L [id number] #### [facility] ([facility]) [address] [place] [address] HEMOGLOBIN A1Con 10-05-2023 Glucose [Mass/Vol] 183 mg/dL Normal [facility] Comment on above: Performed By: #### L [id number] #### [facility] ([facility]) [address] [place] [address] HbA1c (Bld) [Mass fraction] 8.0 % High 4.0-6.0 [facility] Comment on above: Performed By: #### L [id number] #### [facility] ([facility]) [address] [place] [address] POCT GLUCOSE METER UNSOLICIT ED RESULTSon 10-05-2023 Glucose [Mass/Vol] 229 mg/dL High 70-105 [facility] Comment on above: Order Comment: Waive d Testing in the ED is performed under the ED CLIA certificate #[id number]. Result Comment: [email or web address] Performed By: #### L [id number] ####[facility] ([facility])[address] [place] [address] Covid-19 PCR ([facility])on 07-09 SARS-CoV-2 (COVID-19) RNA NIXON+probe Ql (Unsp spec) Detected Critically abnormal NOT DETECTED [facility] Comment on above: Result Comment: This test is not yet approved or cleared by the [place] FDA. When there are no FDA-approved or cleared tests available, and other criteria are met, FDA can make tests available under an emergency access mechanism called an Emergency Use Authorization (EUA). The EUA for this test is supported by the [place] of Health and Human Service's (HHS's) declaration [...] used). Performed By: #### A 1C #### [facility] [address] [place] [address] Dr. Bridger Aggarwal INFLUENZA A AND B AGon 08-03 [facility] SEE BELOW Normal [facility] Comment on above: Result Comment: Nega tive for Flu A protein angiten. Infection due to Flu A cannot be ruled out. Flu A angiten in the sample may be below the detection limit of the test. Performed By: #### I NFLUAB #### [facility] [address] [place] [address] Dr. Bridger Aggar[facility] SEE BELOW Normal [facility] Comment on above: Result Comment: Nega tive for Flu B protein antigen. Infection due to Flu B cannot be ruled out. Flu B antigen in the sample may be below the detection limit of the test. Performed By: #### I NFLUAB #### [facility] [address] [place] [address] Dr. Bridger Aggarwal INFLUENZA A AG Negative Normal NEGATIVE SEE COMMENT [facility] Comment on above: Performed By: #### I NFLUAB #### [facility] [address] [place] [address] Dr. Bridger Aggarwal INFLUENZA B AG Negative Normal NEGATIVE SEE COMMENT [facility] Comment on above: Performed By: #### I NFLUAB #### [facility] [address] [place] [address] Dr. Bridger Aggarwal INTERNAL CONTROLS Within Normal Limits Normal Wi thin Normal Limits [facility] Comment on above: Performed By: #### I NFLUAB #### [facility] [address] [place] [address] Dr. Bridger Aggarwal CULTURE WOUNDon 04-23-2022 CULTURE [...] F Oxacillin <=0.25 S F Normal [facility] Comment on above: Performed By: #### A 1C #### [facility] [address] [place] [address] Dr. Bridger Aggarwal Covid-19 PCR ([facility])on 03-09 SARS-CoV-2 (COVID-19) RNA NIXON+probe Ql (Unsp spec) Not detected Normal NOT DETECTED [facility] Comment on above: Result Comment: This test is not yet approved or cleared by the [place] FDA. When there are no FDA-approved or cleared tests available, and other criteria are met, FDA can make tests available under an emergency access mechanism called an Emergency Use Authorization (EUA). The EUA for this test is supported by the [place] of Health and Human Service's (HHS's) declaration [...] SARS-CoV-2. Performed By: #### A 1C #### [facility] [address] [place] [address] Dr. Bridger Aggarwal Covid-19 PCR ([facility])on SARS-CoV-2 (COVID-19) RNA NIXON+probe Ql (Unsp spec) Not detected Normal NOT DETECTED [facility] Comment on above: Result Comment: When [...] for this test is supported by the [place] of Health and Human Service's declaration that [...] used). Performed By: #### A 1C #### [facility] [address] [place] [address] Dr. Bridger Aggarwal T4 LABCORPon 01-01-2022 T4 [Mass/Vol] 4.7 ug/dL Normal 4.5-12.0 The [facility] Comment on above: Performed By: #### A 1C #### [facility] [address] [place] [address] Dr. Bridger Aggarwal FREE THYROXINE INDEX T7on FTI 1.69 Normal 1.30-4.50 [facility] Comment on above: Performed By: #### A 1C #### [facility] [address] [place] [address] Dr. Bridger Aggarwal T3U 36.0 % Normal 33.0-40.0 [facility] Comment on above: Performed By: #### A 1C #### [facility] [address] [place] [address] Dr. Bridger Aggarwal T4 [Mass/Vol] 4.70 ug/dL Normal 4.50-12.10 [facility] Comment on above: Performed By: #### A 1C #### [facility] [address] [place] [address] Dr. Bridger Aggarwal TSHon 12-28-2021 TSH 0.969 uIU/mL Normal 0.358-3.740 [facility] Comment on above: Performed By: #### A 1C #### [facility] [address] [place] [address] Dr. Bridger Aggarwal TSH RANGE SEE BELOW Normal [facility] Comment on above: Result Comment: <0.3 4 UIU/ml HYPERTHYROID 0.34-5.60 UIU/ml EUTHYROID >5.60 UIU/ml HYPOTHYROID Performed By: #### A 1C #### [facility] [address] [place] [address] Dr. Bridger Aggarwal CBC AUTO DIFFon 12-26-2021 BASO # 0.0 103/ul Normal 0.0-0.1 [facility] Comment on above: Performed By: #### C BC #### [facility] [address] [place] [address] Dr. Bridger Aggarwal Basophils/100 WBC (Bld) 0.4 % Normal 0.2-2.0 [facility] Comment on above: Performed By: #### C BC #### [facility] [address] [place] [address] Dr. Bridger Aggarwal EO # 0.1 103/ul Normal 0.0-0.7 [facility] Comment on above: Performed By: #### C BC #### [facility] [address] [place] [address] Dr. Bridger Aggarwal Eosinophils/100 WBC (Bld) 0.6 % Critically low 0.9-7.0 [facility] Comment on above: Performed By: #### C BC #### [facility] [address] [place] [address] Dr. Bridger Aggarwal Erythrocyte distribution width (RBC) [Ratio] 12.0 % Normal 11.0-15.0 [facility] Comment on above: Performed By: #### C BC #### [facility] [address] [place] [address] Dr. Bridger Aggarwal Hematocrit (Bld) [Volume fraction] 44.9 % Normal 42.0-54.0 [facility] Comment on above: Performed By: #### C BC #### [facility] [address] [place] [address] Dr. Bridger Aggarwal Hemoglobin (Bld) [Mass/Vol] 15.4 g/dL Normal 14.0-18.0 [facility] Comment on above: Performed By: #### C BC #### [facility] [address] [place] [address] Dr. Bridger Aggarwal IG # 0.03 10e3/ul Normal 0.00-0.03 [facility] Comment on above: Performed By: #### C BC #### [facility] [address] [place] [address] Dr. Bridger Aggarwal IG % 0.3 % Normal 0.0-0.5 [facility] Comment on above: Performed By: #### C BC #### [facility] [address] [place] [address] Dr. Bridger Aggarwal LYMPH # 1.5 103/ul Normal 1.2-3.8 [facility] Comment on above: Performed By: #### C BC #### [facility] [address] [place] [address] Dr. Bridger Aggarwal Lymphocytes/100 WBC (Bld) 14.2 % Critically low 20.5-60.0 [facility] Comment on above: Performed By: #### C BC #### [facility] [address] [place] [address] Dr. Bridger Aggarwal MANUAL DIFF REQ NO Normal [facility] Comment on above: Performed By: #### C BC #### [facility] [address] [place] [address] Dr. Bridger Aggarwal MCH (RBC) [Entitic mass] 34.2 pg Critically high 25.9-34.0 [facility] Comment on above: Performed By: #### C BC #### [facility] [address] [place] [address] Dr. Bridgre Aggarwal MCHC (RBC) [Mass/Vol] 34.3 g/dL Normal 29.9-35.2 [facility] Comment on above: Performed By: #### C BC #### [facility] [address] [place] [address] Dr. Bridger Aggarwal MCV (RBC) [Entitic vol] 99.8 fL Critically high 80.0-94.0 [facility] Comment on above: Performed By: #### C BC #### [facility] [address] [place] [address] Dr. Bridger Aggarwal MONO # 0.7 103/ul Normal 0.3-0.8 [facility] Comment on above: Performed By: #### C BC #### [facility] [address] [place] [address] Dr. Bridger Aggarwal Monocytes/100 WBC (Bld) 6.3 % Normal 1.7-12.0 [facility] Comment on above: Performed By: #### C BC #### [facility] [address] [place] [address] Dr. Bridger Aggarwal NEUT # 8.2 103/ul Critically high 1.4-6.5 [facility] Comment on above: Performed By: #### C BC #### [facility] [address] [place] [address] Dr. Bridger Aggarwal Neutrophils/100 WBC (Bld) 78.2 % Critically high 43.0-75.0 [facility] Comment on above: Performed By: #### C BC #### [facility] [address] [place] [address] Dr. Bridger Aggarwal Platelet mean volume (Bld) [Entitic vol] 9.6 fL Normal 9.5-13.5 [facility] Comment on above: Performed By: #### C BC #### [facility] [address] [place] [address] Dr. Bridger Aggarwal PLT 247 103/ul Normal 150-450 [facility] Comment on above: Performed By: #### C BC #### [facility] [address] [address] [address] Bridger Aggarwal RBC 4.50 106/ul Critically low 4.70-6.10 [facility] Comment on above: Performed By: #### C BC #### [facility] [address] [place] [address] Dr. Bridger Aggarwal WBC 10.5 103/ul Normal 4.0-11.0 [facility] Comment on above: Performed By: #### C BC #### [facility] [address] [place] [address] HEAD WO CONon [...] JACOB LALA Date: 2021-12-26 13:30 Normal [facility] PROF CHEM 8 (BAS METB)on Anion gap [Moles/Vol] 17.1 mmol/L Normal [facility] Comment on above: Performed By: #### A 1C #### [facility] [address] [place] [address] Dr. Bridger Aggarwal Calcium [Mass/Vol] 9.4 mg/dL Normal 8.5-10.1 [facility] Comment on above: Performed By: #### A 1C #### [facility] [address] [place] [address] Dr. Bridger Aggarwal Chloride [Moles/Vol] 97 mmol/L Critically low 98-107 [facility] Comment on above: Performed By: #### A 1C #### [facility] [address] [place] [address] Dr. Bridger Aggarwal CO2 [Moles/Vol] 20.6 mmol/L Critically low 21.0-32.0 [facility] Comment on above: Performed By: #### A 1C #### [facility] [address] [place] [address] Dr. Bridger Aggarwal Creatinine [Mass/Vol] 0.96 mg/dL Normal 0.70-1.30 [facility] Comment on above: Performed By: #### A 1C #### [facility] [address] [place] [address] Dr. Bridger Aggarwal EGFR-AF KENYAN >60 Normal >=60 [facility] Comment on above: Performed By: #### A 1C #### [facility] [address] [place] [address] Dr. Bridger Aggarwal EGFR-NON AF KENYAN >60 Normal >=60 [facility] Comment on above: Performed By: #### A 1C #### [facility] [address] [place] [address] Dr. Bridger Aggarwal Glucose [Mass/Vol] 216 mg/dL Critically high 74-106 [facility] Comment on above: Performed By: #### A 1C #### [facility] [address] [place] [address] Dr. Bridger Aggarwal Potassium [Moles/Vol] 3.7 mmol/L Normal 3.5-5.1 [facility] Comment on above: Performed By: #### A 1C #### [facility] [address] [place] [address] Dr. Bridger Aggarwal Sodium [Moles/Vol] 131 mmol/L Critically low 136-145 [facility] Comment on above: Performed By: #### A 1C #### [facility] [address] [place] [address] Dr. Bridger Aggarwal Urea nitrogen [Mass/Vol] 26.0 mg/dL Critically high 7.0-18.0 [facility] Comment on above: Performed By: #### A 1C #### [facility] [address] [place] [address] Dr. Bridger Aggarwal Urea nitrogen/Creatinine [Mass ratio] 27.1 mg/mg Normal [facility] Comment on above: Performed By: #### A 1C #### [facility] [address] [place] [address] Dr. Bridger Aggarwal CBC AUTO DIFFon 12-18-2021 BASO # 0.0 103/ul Normal 0.0-0.1 [facility] Comment on above: Performed By: #### A 1C #### [facility] [address] [place] [address] Dr. Bridger Aggarwal Basophils/100 WBC (Bld) 0.4 % Normal 0.2-2.0 [facility] Comment on above: Performed By: #### A 1C #### [facility] [address] [place] [address] Dr. Bridger Aggarwal EO # 0.1 103/ul Normal 0.0-0.7 [facility] Comment on above: Performed By: #### A 1C #### [facility] [address] [place] [address] Dr. Bridger Aggarwal Eosinophils/100 WBC (Bld) 1.2 % Normal 0.9-7.0 [facility] Comment on above: Performed By: #### A 1C #### [facility] [address] [place] [address] Dr. Bridger Aggarwal Erythrocyte distribution width (RBC) [Ratio] 12.5 % Normal 11.0-15.0 [facility] Comment on above: Performed By: #### A 1C #### [facility] [address] [place] [address] Dr. Bridger Aggarwal Hematocrit (Bld) [Volume fraction] 45.9 % Normal 42.0-54.0 [facility] Comment on above: Performed By: #### A 1C #### [facility] [address] [place] [address] Dr. Bridger Aggarwal Hemoglobin (Bld) [Mass/Vol] 15.8 g/dL Normal 14.0-18.0 [facility] Comment on above: Performed By: #### A 1C #### [facility] [address] [place] [address] Dr. Bridger Aggarwal IG # 0.04 10e3/ul Critically high 0.00-0.03 [facility] Comment on above: Performed By: #### A 1C #### [facility] [address] [place] [address] Dr. Bridger Aggarwal IG % 0.5 % Normal 0.0-0.5 [facility] Comment on above: Performed By: #### A 1C #### [facility] [address] [place] [address] Dr. Bridger Aggarwal LYMPH # 1.7 103/ul Normal 1.2-3.8 [facility] Comment on above: Performed By: #### A 1C #### [facility] [address] [place] [address] Dr. Bridger Aggarwal Lymphocytes/100 WBC (Bld) 22.3 % Normal 20.5-60.0 [facility] Comment on above: Performed By: #### A 1C #### [facility] [address] [place] [address] Dr. Bridger Aggarwal MANUAL DIFF REQ NO Normal [facility] Comment on above: Performed By: #### A 1C #### [facility] [address] [place] [address] Dr. Bridger Aggarwal MCH (RBC) [Entitic mass] 34.3 pg Critically high 25.9-34.0 [facility] Comment on above: Performed By: #### A 1C #### [facility] [address] [place] [address] Dr. Bridger Aggarwal MCHC (RBC) [Mass/Vol] 34.4 g/dL Normal 29.9-35.2 [facility] Comment on above: Performed By: #### A 1C #### [facility] [address] [place] [address] Dr. Bridger Aggarwal MCV (RBC) [Entitic vol] 99.6 fL Critically high 80.0-94.0 [facility] Comment on above: Performed By: #### A 1C #### [facility] Laboratory [address] [place] [address] Dr. Bridger Aggarwal MONO # 0.7 103/ul Normal 0.3-0.8 [facility] Comment on above: Performed By: #### A 1C #### [facility] Laboratory [address] [place] [address] Dr. Bridger Aggarwal Monocytes/100 WBC (Bld) 8.6 % Normal 1.7-12.0 [facility] Comment on above: Performed By: #### A 1C #### [facility] Laboratory [address] [place] [address] Dr. Bridger Aggarwal NEUT # 5.2 103/ul Normal 1.4-6.5 [facility] Comment on above: Performed By: #### A 1C #### [facility] Laboratory [address] [place] [address] Dr. Bridger Aggarwal Neutrophils/100 WBC (Bld) 67.0 % Normal 43.0-75.0 [facility] Comment on above: Performed By: #### A 1C #### [facility] Laboratory [address] [place] [address] Dr. Bridger Aggarwal Platelet mean volume (Bld) [Entitic vol] 9.4 fL Critically low 9.5-13.5 [facility] Comment on above: Performed By: #### A 1C #### [facility] Laboratory [address] [address] [address] Bridger Aggarwal PLT 259 103/ul Normal 150-450 [facility] Comment on above: Performed By: #### A 1C #### [facility] [address] [address] [address] Bridger Aggarwal RBC 4.61 106/ul Critically low 4.70-6.10 [facility] Comment on above: Performed By: #### A 1C #### [facility] [address] [address] [address] Bridger Aggarwal WBC 7.8 103/ul Normal 4.0-11.0 [facility] Comment on above: Performed By: #### A 1C #### [facility] [address] [place] [address] Dr. Bridger Aggarwal FREE T3on 12-18-2021 FREE T3 2.71 pg/mlL Normal 2.18-3.98 [facility] Comment on above: Performed By: #### C MP, T4, FT3, TSH, LIPID #### [facility] [address] [address] [address] Bridger Aggarwal GLYCOHEMOGLOBIN A1Con 2021 ADA RECOMMENDATION SEE BELOW Normal [facility] Comment on above: Result Comment: ADA RECOMMENDED LIMIT 4.0 - 6.0 ADA THERAPEUTIC TARGET < 7.0 ACTION SUGGESTED > 7.0 Performed By: #### A 1C #### [facility] [address] [address] [address] Bridger Aggarwal Glucose [Mass/Vol] 197 mg/dL Normal [facility] Comment on above: Performed By: #### A 1C #### [facility] [address] [address] [address] Bridger Aggarwal HbA1c (Bld) [Mass fraction] 8.5 % Critically high 4.5-6.2 [facility] Comment on above: Performed By: #### A 1C #### [facility] [address] [place] [address] Dr. Bridger Aggarwal LIPID PROFILEon 12-18-2021 CHOL-HDL RATIO NORM SEE BELOW Normal [facility] Comment on above: Result Comment: 3.3 - 4.4 LOW RISK 4.4 - 7.1 AVERAGE RISK 7.1 - 11.0 MODERATE RISK >11.0 HIGH RISK Performed By: #### C MP, T4, FT3, TSH, LIPID #### [facility] [address] [address] [address] Bridger Aggarwal Cholesterol [Mass/Vol] 157 mg/dL Normal <=200 [facility] Comment on above: Performed By: #### C MP, T4, FT3, TSH, LIPID #### [facility] [address] [address] [address] Bridger Aggarwal Cholesterol in HDL [Mass/Vol] 46 mg/dL Normal 40-60 [facility] Comment on above: Performed By: #### C MP, T4, FT3, TSH, LIPID #### [facility] [address] [place] [address] Dr. Bridger Aggarwal Cholesterol in LDL [Mass/Vol] 85.8 mg/dL Normal [facility] Comment on above: Performed By: #### C MP, T4, FT3, TSH, LIPID #### [facility] [address] [address] [address] Bridger Aggarwal Cholesterol.total/C holesterol in HDL [Mass ratio] 3.4 {ratio} Normal [facility] Comment on above: Performed By: #### C MP, T4, FT3, TSH, LIPID #### [facility] [address] [place] [address] Dr. Bridger Aggarwal HDL NORMAL > or = 60 mg/dl - LO W CARDIOVASCULAR RISK <40 mg/dl - HIGH CARDIOVASCULAR RISK Normal [facility] Comment on above: Performed By: #### C MP, T4, FT3, TSH, LIPID #### [facility] [address] [place] [address] Dr. Bridger Aggarwal LDL CALC NORMAL SEE BELOW Normal [facility] Comment on above: Result Comment: <100 mg/dl OPTIMAL 100 - 129 mg/dl NEAR OR ABOVE OPTIMAL 130 - 159 mg/dl BORDERLINE HIGH 160 - 189 mg/dl HIGH >190 mg/dl VERY HIGH Performed By: #### C MP, T4, FT3, TSH, LIPID #### [facility] [address] [address] [address] Bridger Aggarwal Triglyceride [Mass/Vol] 126 mg/dL Normal <=150 [facility] Comment on above: Performed By: #### C MP, T4, FT3, TSH, LIPID #### [facility] [address] [address] [address] Bridger Aggarwal VLDL CALC 25.2 mg/dL Normal [facility] Comment on above: Performed By: #### C MP, T4, FT3, TSH, LIPID #### [facility] [address] [place] [address] Dr. Bridger Aggarwal OCC BLD IMMUNO SCREENon 12-06 OCCULT BLOOD Negative Normal NEGATIVE [facility] Comment on above: Performed By: #### O BSCRN #### [facility] [address] [place] [address] Dr. Bridger Aggarwal PROF 14(COMP METB)on 022 Albumin [Mass/Vol] 3.6 g/dL Normal 3.4-5.0 [facility] Comment on above: Performed By: #### C MP, T4, FT3, TSH, LIPID #### [facility] [address] [place] [address] Dr. Bridger Aggarwal Albumin/Globulin [Mass ratio] 0.9 {ratio} Normal [facility] Comment on above: Performed By: #### C MP, T4, FT3, TSH, LIPID #### [facility] [address] [place] [address] Dr. Bridger Aggarwal ALP [Catalytic activity/Vol] 84 U/L Normal 46-116 [facility] Comment on above: Performed By: #### C MP, T4, FT3, TSH, LIPID #### [facility] [address] [place] [address] Dr. Bridger Aggarwal ALT [Catalytic activity/Vol] 45 U/L Normal 16-63 [facility] Comment on above: Performed By: #### C MP, T4, FT3, TSH, LIPID #### [facility] [address] [place] [address] Dr. Bridger Aggarwal Anion gap [Moles/Vol] 12.1 mmol/L Normal [facility] Comment on above: Performed By: #### C MP, T4, FT3, TSH, LIPID #### [facility] [address] [place] [address] Dr. Bridger Aggarwal AST [Catalytic activity/Vol] 20 U/L Normal 15-37 [facility] Comment on above: Performed By: #### C MP, T4, FT3, TSH, LIPID #### [facility] [address] [place] [address] Dr. Bridger Aggarwal Bilirubin [Mass/Vol] 0.6 mg/dL Normal 0.2-1.0 [facility] Comment on above: Performed By: #### C MP, T4, FT3, TSH, LIPID #### [facility] [address] [place] [address] Dr. Bridger Aggarwal Calcium [Mass/Vol] 9.1 mg/dL Normal 8.5-10.1 [facility] Comment on above: Performed By: #### C MP, T4, FT3, TSH, LIPID #### [facility] [address] [place] [address] Dr. Bridger Aggarwal Chloride [Moles/Vol] 100 mmol/L Normal 98-107 [facility] Comment on above: Performed By: #### C MP, T4, FT3, TSH, LIPID #### [facility] [address] [place] [address] Dr. Bridger Aggarwal CO2 [Moles/Vol] 28.4 mmol/L Normal 21.0-32.0 [facility] Comment on above: Performed By: #### C MP, T4, FT3, TSH, LIPID #### [facility] [address] [place] [address] Dr. Bridger Aggarwal Creatinine [Mass/Vol] 0.99 mg/dL Normal 0.70-1.30 [facility] Comment on above: Performed By: #### C MP, T4, FT3, TSH, LIPID #### [facility] [address] [place] [address] Dr. Bridger gAgarwal EGFR-AF KENYAN >60 Normal >=60 [facility] Comment on above: Performed By: #### C MP, T4, FT3, TSH, LIPID #### [facility] [address] [place] [address] Dr. Bridger Aggarwal EGFR-NON AF KENYAN >60 Normal >=60 [facility] Comment on above: Performed By: #### C MP, T4, FT3, TSH, LIPID #### [facility] [address] [address] [address] Bridger Aggarwal Globulin (S) [Mass/Vol] 3.8 g/dL Normal [facility] Comment on above: Performed By: #### C MP, T4, FT3, TSH, LIPID #### [facility] [address] [place] [address] Dr. Bridger Aggarwal Glucose [Mass/Vol] 260 mg/dL Critically high 74-106 [facility] Comment on above: Performed By: #### C MP, T4, FT3, TSH, LIPID #### [facility] [address] [place] [address] Dr. Bridger Aggarwal Potassium [Moles/Vol] 4.5 mmol/L Normal 3.5-5.1 [facility] Comment on above: Performed By: #### C MP, T4, FT3, TSH, LIPID #### [facility] [address] [place] [address] Dr. Bridger Aggarwal Protein [Mass/Vol] 7.4 g/dL Normal 6.4-8.2 [facility] Comment on above: Performed By: #### C MP, T4, FT3, TSH, LIPID #### [facility] [address] [place] [address] Dr. Bridger Aggarwal Sodium [Moles/Vol] 136 mmol/L Normal 136-145 [facility] Comment on above: Performed By: #### C MP, T4, FT3, TSH, LIPID #### [facility] [address] [place] [address] Dr. Bridger Aggarwal Urea nitrogen [Mass/Vol] 17.0 mg/dL Normal 7.0-18.0 [facility] Comment on above: Performed By: #### C MP, T4, FT3, TSH, LIPID #### [facility] [address] [address] [address] Bridger Aggarwal Urea nitrogen/Creatinine [Mass ratio] 17.2 mg/mg Normal [facility] Comment on above: Performed By: #### C MP, T4, FT3, TSH, LIPID #### [facility] [address] [place] [address] Dr. Bridger Aggarwal T4on 12-18-2021 T4 [Mass/Vol] 4.80 ug/dL Normal 4.50-12.10 The [facility] Comment on above: Performed By: #### C MP, T4, FT3, TSH, LIPID #### [facility] [address] [place] [address] Dr. Bridger Aggarwal TSHon 12-18-2021 TSH 1.496 uIU/mL Normal 0.358-3.740 [facility] Comment on above: Performed By: #### C MP, T4, FT3, TSH, LIPID #### [facility] [address] [place] [address] Dr. Bridger Aggarwal TSH RANGE SEE BELOW Normal [facility] Comment on above: Result Comment: <0.3 4 UIU/ml HYPERTHYROID 0.34-5.60 UIU/ml EUTHYROID >5.60 UIU/ml HYPOTHYROID Performed By: #### C MP, T4, FT3, TSH, LIPID #### [facility] [address] [place] [address] Dr. Bridger Aggarwal Encounters Encounter Date Encounter Type Care Provider Facility Start: 12-05-2023 End: 12-05-2023 ambulatory AB [facility] Start: 10-13-2023 End: 10-13-2023 [facility]: 10-06-2023 Evaluation and management of inpatient DESTINEE COSTA [facility] Start: 10-05-2023 End: 10-09-2023 Evaluation and management of inpatient ADARSH HALL [facility] Start: 08-10-2022 End: 08-10-[address] ADARSH HALL Facility:[facility] Start: 08-03-2022 End: 08-03-[address] ADARSH HALL Facility:[facility] Start: 04-21-2022 End: 04-21-[address] ADARSH HALL Facility:[facility] Start: 03-29-2022 End: 03-29-[address] ADARSH HALL Facility:[facility] Start: 02-05-2022 End: 02-05-[address] ADARSH HALL Facility:[facility] Start: 12-28-2021 End: 12-29-[address] ADARSH HALL Facility:[facility] Start: 12-26-2021 End: 12-26-[address] ADARSH HALL Facility:[facility] Start: 12-23-2021 Encounter for genera l adult medical examination without abnormal findings DR ADARSH HALL [facility] Start: 12-18-2021 End: 12-19-[address] ADARSH HALL Facility:[facility] Start: 12-18-2021 End: 12-19-2021 Encounter for general adult medical examination without abnormal findings DR ADARSH HALL Facility:[facility] Procedures Date Procedure Procedure Detail Performing Clinician Start: 12-18-[address] GREG HALL Comment on above: Performed By: #### P [facility] #### [facility] [address] [place] [address] Dr. Bridger Aggarwal Payers Date Payer Category Payer Unknown [id number] .. [id number] 1973 Unknown [id number] 2..84 [id number] 1973 Unknown [id number] 2..84 [id number] 1973 Unknown [id number] 2.16.84 [id number] 1973 Unknown [id number] 2..84 [id number] 1973 Unknown [id number] 2.16.84 [id number] 1973 Unknown [id number] 2.16.84 [id number] 1973 Unknown [id number] 2.16.84 [id number] 1959 Private Health Insurance [id number] 1961 Unknown [id number] Clinical Notes 10-05-2023 to 12-05-2023 Note Date & Type Note Facility 12-05-2023 Note [facility] Cardiology Clinic Note Chief Complaint: Patient here for follow up echo performed on 11/24/2023. He saw Dr. Hall last week because his BP had been running high. Dr. Hall doubled his Entresto he says. Patient denies chest pain, SOB, palpitations, and lightheadedness/syncope. Still has some fatigue. HPI: Tera Roberto is a 48 y.o. male PMHx: systolic heart failure, NICM, non-obstructive CAD, [...] disease- nonobstructive with sluggish coronary flow on [facility] 10/07/23 Hypertension Type 2 DM [...] obesity, LARS, tobacco dependence intially presents to [facility] after sudden onset SOB. He woke up [...] from ETOH use and was discharged home. UPDATE 12/05/2023 Doing well apart from postural dizziness Cardiology ROS: Review of Systems Constitutional: Positive for malaise/fatigue. All other systems reviewed and are negative. Past Medical History He has a past medical history of Alcohol abuse, CHF (congestive heart failure) (CMS/HCC), Coronary artery disease, Diabetes mellitus (CMS/HCC), Hyperlipidemia, and Hypertension. Surgical History He has a past surgical history that includes Bladder surgery and Cardiac catheterization. Social History He reports that he quit smoking about 8 weeks ago. His smoking use included cigarettes. He has a 5.00 pack-year smoking history. He has never used smokeless tobacco. He reports that he does not currently use alcohol. No history on file for drug use. Family History Family History Problem Relation Name Age of Onset Heart attack Maternal Grandfather Allergies Patient has no known allergies. Medications Current Outpatient Medications: aspirin 81 mg chewable tablet, Chew 1 tablet (81 mg) with breakfast for 96 doses. Do not start before October 09, 2023., Disp: 30 tablet, Rfl: 0 atorvastatin (Lipitor) 80 mg tablet, Take 1 tablet (80 mg) by mouth at bedtime., Disp: 90 tablet, Rfl: 3 carvedilol (Coreg) 6.25 mg tablet, Take 1 tablet (6.25 mg) by mouth in the morning and at bedtime., Disp: 180 tablet, Rfl: 3 dapagliflozin propanediol (Farxiga) 10 mg, Take 1 tablet (10 mg) by mouth once daily as directed., Disp: 90 tablet, Rfl: 3 empagliflozin (Jardiance) 10 mg, Take 1 tablet (10 mg) by mouth in the morning., Disp: 90 tablet, Rfl: 3 glimepiride (Amaryl) 4 mg tablet, Take 8 mg by mouth before breakfast., Disp: , Rfl: pantoprazole (ProtoNix) 40 mg EC tablet, Take 1 tablet (40 mg) by mouth before breakfast and before evening meal. Do not crush, chew, or split., Disp: 180 tablet, Rfl: 3 sacubitril-valsartan (Entresto) 24-26 mg tablet, Take 1 tablet by mouth in the morning and at bedtime., Disp: 180 tablet, Rfl: 3 spironolactone (Aldactone) 25 mg tablet, Take 0.5 tablets (12.5 mg) by mouth in the morning., Disp: 45 tablet, Rfl: 3 venlafaxine XR (Effexor-XR) 75 mg 24 hr capsule, Take 75 mg by mouth in the morning. Do not crush or chew., Disp: , Rfl: Last Recorded Vitals BP 128/80 (BP Location: Left arm, Patient Position: Sitting) Pulse 110 Ht 1.753 m (5' 9 ) Wt 116 kg (255 lb) SpO2 96% BMI 37.66 kg/m??? P (more content not included)... [facility] 10-13-2023 Note Cardiovascular Medic [facility] SUBJECTIVE Chief Complaint Patient presents with [...] disease- nonobstructive with sluggish coronary flow on [facility] 10/07/23 Hypertension Type 2 DM [...] obesity, LARS, tobacco dependence intially presents to [facility] after sudden onset SOB. He woke up [...] Patient Active Problem List Diagnosis Heart failure (CMS/HCC) Coronary artery disease involving [place] coronary artery of [place] heart without angina pectoris Benign hypertensive heart disease with heart failure (CMS/HCC) NICM (nonischemic cardiomyopathy) (CMS/HCC) Past Medical History: Diagnosis Date Alcohol abuse CHF (congestive heart failure) (CMS/HCC) Coronary artery disease Diabetes mellitus (CMS/HCC) Hyperlipidemia Hypertension Family History Problem Relation Name [...] at bedtime., Disp: (more content not included)... [facility] 10-13-2023 Note Patient here for [facility] for new onset CHF. He underwent heart cath on 10/07/[address] Herrera. Was discharged with a LifeVest. He has completely stopped smoking and drinking alcohol. Denies chest pain, SOB, palpitations, and lightheadedness/syncope. Review of Systems All other systems reviewed and are negative. [facility] 10-09-2023 Note Patient discharged v ia private ride with . Patient educated on discharge and educated on heart failure education. All questions and concerns addressed at this time. [facility] 10-09-2023 Note 10/09/23 1403 CM Interventions CM Interventions Other (Comment) Follow up appointment for GI Clinic was scheduled for patient for tomorrow, however, per Epic chart, patient has already cancelled. Dr Costa notified [facility] 10-09-2023 Note Awaiting life vest a pproval and fitting. OTM will continue to follow. 1200: Life Vest approved. Awaiting RN for fitting. [facility] 10-09-2023 Note Hospital Medicine Discharge Summary Final Discharge Diagnosis: New onset heart failure with reduced EF, 20-25%, NYHA I, with global hypokinesis NICMP Coronary artery disease- nonobstructive with sluggish coronary flow on [facility] 10/07/23 Hypertension Type 2 DM [...] obesity, LARS, tobacco dependence intially presents to [facility] after sudden onset SOB. He woke up [...] and was discharged home. Dear Dr. Rafael MD [place] is advised to follow up with you within 1-2 weeks. Follow-up with: Scheduled appointments: Future Appointments Date Time Provider Department Center 10/13/2023 2:40 PM Zack Montgmoery NP [facility] Your medication list [...] Medications These medications were sent to [facility] - [place], [place] - [address] [place] [address], [facility] [address] aspirin 81 mg chewable tablet atorvastatin 80 [...] (!) 129/100, pulse (more content not included)... 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 Facesheet & cardiology progress note faxed to [facility] to initiate life ves referral. Awaiting approval / denial and next steps before patient can discharge. UPDATE: [facility] reached out to Dakota who reports he is still waiting for insurance approval for life vest. This information was shared with physician, bedside nurse, and social insurance administrator. Dakota reports if he is approved today, he will attempt to get patient fitted for his life vest today as well. OTM team continuing to follow. [facility] 10-08-2023 Note Hospital Medicine Discharge Summary Final Discharge Diagnosis: New onset heart failure with reduced EF, 20-25%, NYHA I, with global hypokinesis NICMP Coronary artery disease- nonobstructive with sluggish coronary flow on [facility] 10/07/23 Hypertension Type 2 DM with A1C 8% Dyslipidemia Alcohol abuse Tobacco dependence Circumferential esophageal thickening-Outpatient GI Fup for concern of EGD, has hx of reflux, Cont PPI therapy Bilateral groundglass opacities and hilar lymphadenopathy. Be infectious versus inflammatory. Flu PCR and COVID-negative. Admission Diagnosis: Heart failure (CMS/[facility]) [I50.9] Hospital course: Tera Roberto is a 48 y.o. male with a PMH significant for T2DM, HTN, obesity, LARS, tobacco dependence intially presents to [facility] after sudden onset SOB. He woke up [...] [facility] 10/13/2023 2:40 PM Zack Montgomery NP [facility] Your medication list START taking these [...] Medications These medications were sent to [facility] - [place], [place] - [facility] [address], [facility] [address] aspirin 81 mg chewable tablet atorvastatin 80 mg tablet carvedilol 6.25 mg tablet dapagliflozin propanediol 10 mg pantoprazole 40 mg EC tablet sacubitril-valsartan 24-26 mg tablet spironolactone 25 mg tablet Tera has No Known Allergies. Disposition: Home or Self Care () Discharge Condition: Stable Code Status: Full Code Diagnostic Results Hematology: Results from last 7 days Lab Units 10/08/2333110/07/238 WBC AUTO 10*3/uL 5.98 5.43 HEMOGLOBIN g/dL 16.1 17.3* HEMATOCRIT % 48.0 50.5 MCV fL 103.9* 102.0* PLATELETS AUTO 10*3/uL 196 216 Chemistry: Results from last 7 days Lab Units 10/08/2333110/07/2345710/06/23 0945 SODIUM mmol/L 137 137 137 POTASSIUM [...] time of di (more content not included)... [facility] 10-08-2023 Note [facility]TP CARDIOLOGY PROGR ESS NOTE [...] 0400 (!) 134/92 36.5 ???C (97.7 ???F) Temporal 85 16 100 % -- 10/08/23 0015 119/85 36.5 ???C (97.7 ???F) Temporal 83 15 99 % -- 10/07/23 2010 118/85 36.2 ???C (97.2 ???F) Temporal 93 [...] lock IV AND sodium chloride CV Testing: [facility] 10/07/23: FINAL IMPRESSIONS: Angiographically nonobstructive [...] a beta-nabila, a (more content not included)... [facility] 10-08-2023 Note Hospital Medicine Daily Progress Note - 10/09/2023 7:16 AM; Room: [address] [place] [address] Admission: 10/05/2023 7:45 PM; Length of stay: 4 days THE HOSPITALIST TEAM PREFERS TO USE [employer] CHAT FOR COMMUNICATION 7AM-7PM. IF I DO NOT RESPOND WITHIN 15 MINUTES, PLEASE PAGE ME/CALL THROUGH THE FLAT KNITTER HELPER. FROM 7PM-7AM, PLEASE PAGE [phone](COVR) Code Status: Full Code Barriers to Discharge: [...] Active Inpatient Problems Principal Problem: Heart failure ([facility]) Assessment and Plan Acute hypoxemic resp failure- [...] Academy of Nutrition and Dietetics and the [place] [employer] Enteral and Parenteral Nutrition, meets [...] LDL 178 10/06/2023 No results found for: [id number] , IRON , TIBC , C3 , [...] beta-nabila, a RAA (more content not included)... [facility] 10-07-2023 Note Clinical Therapist [facility] Intervention Note Substance Intervention: Raise the Subject: [...] brief intervention. Assessment completed by: DELMA Morgan [facility] 10-07-2023 Note Cardiovascular Labor atory Report FINAL [...] internal jugular vein was obtained. A 6 Gabonese 11 cm sheath was inserted without difficulty. [...] left radial artery was obtained. A 6 Gabonese glide sheath was inserted without difficulty. Bilateral [...] fraction, exertional shortness of breath, abnormal echocardiogram [facility] 10-07-2023 Note ---- Attestation signed by Carlos [...] -- -- -- 116 kg (256 lb) 03/01/24 0345 (!) 144/96 36.6 ???C (97.9 ???F) [...] Value Ventricular Rate 88 Atrial Rate 88 ME Interval 162 QRS DURATION 84 QT Interval 404 [facility] CALCULATION(BAZETT) [address] [place] 50 R-[place] 0 T Wave [place] 61 Impression Sinus rhythm with occasional Premature ventricular complexes Left ventricular hypertrophy ( R in aVL ) Prolonged QT Abnormal ECG No previous ECGs available Confirmed by Daily MENDEZ, L.S. (2) on 10/06/2023 11:01:33 AM Lab Results Component Value Date TROPONINI 0.03 10/06/2023 Transthoracic echo (TTE) limited Result Date: 10/06/2023 1 1 [facility] Heart Station [address], [place] [phone] (fax) Echocardiogram-[facility] Name: TERA ROBERTO Study Date: 10/06/2023 10:25 AM B/P: 153 mmHg/104 mmHg HR: 96 bpm Date of : 1975 Location: [facility] Height: 69 in. Age: 48 year(s) Patient [...] [facility] Referring Physician: Keith Edwards Supervisor Tank Cleaning: Zina Altamirano [facility] Ordering Physician: DESTINEE COSTA No nuclear medicine results found for the past 12 months Relevant Imaging Results Transthoracic echo (TTE) limited 1 1 [facility] Heart Station [address] [place] [address] [phone] (fax) Echocardiogram-[facility] Name: TERA ROBERTO Study Date: 10/06/2023 10:25 AM B/P: (more content not included)... [facility] 10-07-2023 Note Clinician attempted to provide AOD brief intervention. Physician at bedside with pt. Clinician will make another attempt [facility] 10-07-2023 Note Hospital Medicine Daily Progress Note - 10/07/2023 9:30 AM; Room: [address] [place] [address] Admission: 10/05/2023 7:45 PM; Length of stay: 2 days THE HOSPITALIST TEAM PREFERS TO USE [employer] CHAT FOR COMMUNICATION 7AM-7PM. IF I DO NOT RESPOND WITHIN 15 MINUTES, PLEASE PAGE ME/CALL THROUGH THE FLAT KNITTER HELPER. FROM 7PM-7AM, PLEASE PAGE [phone](COVR) Code Status: Full Code Barriers to Discharge: [...] Active Inpatient Problems Principal Problem: Heart failure ([facility]) Assessment and Plan Acute hypoxemic resp failure- [...] Academy of Nutrition and Dietetics and the [place] [employer] Enteral and Parenteral Nutrition, meets [...] 2017 10/06/23 1527 10/06/23 1152 10/06/23 0711 10/05/23 2107 POCT GLUCOSE mg/dL 242* 276* 187* 183* 183* 229* Historical Values: (Includes values prior to this admission) Lab Results Component Value Date HDL 51 10/06/2023 LDL 178 10/06/2023 No results found for: [id number] , IRON , TIBC , C3 , C4 , DANTE , CANCA , ASO , PSA , CEA , CA125 , CA199 , AFP , CA153 Imaging Transthoracic echo (TTE) limited 1 1 [facility] Heart Station [address] [place] [address] [phone] (fax) Echocardiogram-[facility] Name: TERA ROBERTO Study Date: 10/06/2023 10:25 AM B/P: 153 mmHg/104 mmHg HR: 96 bpm Date of : 1975 Location: [facility] Height: 69 in. Age: 48 year(s) Patient Room: [facility] Weight: 255 lb. Gender: Male Patient Status: [...] is estimated at (more content not included)... [facility] 10-06-2023 Note Patient admitted to the hospital for: Heart failure. Chart echo from 10/06/2023 reports: EF 20-25%. Echo report qualifies for Cardiac Rehab services per CMS eligibility criteria. A Cardiac Rehab referral diagnosis must also meet CMS criteria. Stefany Rucker, RN, BSN Cardiology Outpatient Coordinator Cardiopulmonary Rehab [facility] 10-06-2023 Note Hospital Medicine Daily Progress Note - 10/06/2023 10:45 AM; Room: [facility]- Admission: 10/05/2023 7:45 PM; Length of stay: 1 days THE HOSPITALIST TEAM PREFERS TO USE [employer] CHAT FOR COMMUNICATION 7AM-7PM. IF I DO NOT RESPOND WITHIN 15 MINUTES, PLEASE PAGE ME/CALL THROUGH THE FLAT KNITTER HELPER. FROM 7PM-7AM, PLEASE PAGE [phone](COVR) Code Status: Full Code Barriers to Discharge: [...] Active Inpatient Problems Principal Problem: Heart failure ([facility]) Assessment and Plan Acute hypoxemic resp failure- [...] Academy of Nutrition and Dietetics and the [place] [employer] Enteral and Parenteral Nutrition, meets [...] LDL 178 10/06/2023 No results found for: [id number] , IRON , TIBC , C3 , [...] Medicine 10/06/2023 10: (more content not included)... [facility] 10-05-2023 Note Hospital Medicine History and Physical 10/05/2023 7:51 PM THE HOSPITALIST TEAM PREFERS TO USE [employer] CHAT FOR COMMUNICATION 7AM-7PM. IF I DO NOT RESPOND WITHIN 15 MINUTES, PLEASE PAGE ME/CALL THROUGH THE FLAT KNITTER HELPER. FROM 7PM-7AM, PLEASE PAGE [phone](COVR). SUBJECTIVE: Chief Complaint Acute onset of Shortness [...] coronary arteries. Patient was then transferred to [facility] for further cares. When I evaluated the [...] Bronchitis and pneumonitis (more content not included)... [facility] Summary Purpose Family History No Family History Records FoundNo Family History Records Found Advance Directives No Advanced Directives Records FoundNo Advanced Directives Records Found Additional Source Comments (unrecognized sect ion and content) No Status Records FoundNo Status Records Found INFORMATION SOURCE (unrecogn ized section and content) DATE CREATED AUTHOR 08/10/2022 [facility] DATE CREATED AUTHOR AUTHOR'S ORGANIZ ATION 12/06/2023 [facility] FOR RECORDS PERTAINING TO PATIENTS [...] BE BASED ON THE PRIMARY CLINICAL RECORDS. [facility] [employer] [facility]. provides no warranty or guarantee of the accuracy or completeness of information in this document.
[2024-03-15 07:04] LABS: Basophils Absolute Auto 0.1 10^3/uL (0.0-0.1); Basophils Percent Auto 0.8 % (0.2-2.0); Eosinophils Absolute Auto 0.2 10^3/uL (0.0-0.7); Eosinophils Percent Auto 2.9 % (0.9-7.0); Hematocrit 43.7 % (42.0-54.0); Hemoglobin 14.9 g/dL (14.0-18.0); Immature Granulocytes Abs Auto 0.03 10^3/uL (0.00-0.03); Immature Granulocytes Pct Auto 0.5 % (0.0-0.5); Lymphocytes Absolute Auto 1.4 10^3/uL (1.2-3.8); Lymphocytes Percent Auto 22.9 % (20.5-60.0); Mean Corpuscular HGB Conc 34.1 g/dL (29.9-35.2); Mean Corpuscular Hemoglobin 34.5 pg (25.9-34.0); Mean Corpuscular Volume 101.2 fL (80.0-94.0); Mean Platelet Volume 9.6 fL (9.5-13.5); Monocytes Absolute Auto 0.6 10^3/uL (0.3-0.8); Monocytes Percent Auto 8.7 % (1.7-12.0); Neutrophils Absolute Auto 4.1 10^3/uL (1.4-6.5); Neutrophils Percent Auto 64.2 % (43.0-75.0); Platelet Count 216 10^3/uL (150-450); Red Blood Count 4.32 10^6/uL (4.70-6.10); Red Cell Distribution Width 11.9 % (11.0-15.0); White Blood Count 6.3 10^3/uL (4.0-11.0)
[2024-03-15 07:18] LABS: Estimated Average Glucose 220 mg/dL; Glycohemoglobin A1C 9.3 % (4.5-6.2)
[2024-03-15 08:25] LABS: Alanine Aminotransferase 52 U/L (16-63); Albumin Level 3.7 g/dL (3.4-5.0); Alkaline Phosphatase 141 U/L (46-116); Anion Gap 14.3; Aspartate Amino Transferase 32 U/L (15-37); BUN Creatinine Ratio 25.3; Bilirubin Total 0.7 mg/dL (0.2-1.0); Carbon Dioxide 27.4 mmol/L (21.0-32.0); Chloride 100 mmol/L (98-107); Chol HDL Ratio 4.9; Cholesterol 188 mg/dL (<=200); Estimated GFR (African America >60 (>=60); Estimated GFR (Non-African Ame >60 (>=60); Free T3 3.02 pg/mL (2.18-3.98); Globulin 3.6 g/dL; Glucose 229 mg/dL (74-106); HDL Cholesterol 38 mg/dL (40-60); Potassium 3.7 mmol/L (3.5-5.1); Sodium 138 mmol/L (136-145); Thyroid Stimulating Hormone 2.576 uIU/mL (0.358-3.740); Total Protein 7.3 g/dL (6.4-8.2); Triglycerides 566 mg/dL (<=150); VLDL CHOLESTEROL 113.2 mg/dL
[2024-03-16 04:08] LABS: PSA, Free 0.11 ng/mL; Prostate Specific Ag 0.8 ng/mL (0.0-4.0)
[2024-03-16 14:35] LABS: LDL Cholesterol Direct 74 mg/dL
== END 2024-03-15 06:31 | disposition home or self-care (01) ==
LOC: LAB 06:34
PROVIDERS: PCP Family Medicine; Visit Provider Family Medicine
DX: Z00.00 Encounter for general adult medical examination without abnormal findings (principal)
CPT/HCPCS: 36415; 80053; 80061; 83036; 83721; 84153; 84154; 84439; 84443; 84481; 85025

== ENCOUNTER 2024-05-15 07:18 | Outpatient (OUT) | payer OTHER, SELFPAY ==
--- OUTSIDE RECORDS SUMMARY | 2024-05-15 07:22 | XMS_ITS | CCD ---
Author Organization [facility] Care Team Providers Care Marketing Administrator Name Role Phone RAFAEL, DR ALTAMIRANO Admitting [...] disease (2 sources) Atherosclerotic heart disease of [place] coronary artery without angina pectoris; Translations: [Atherosclerotic heart disease of [place] coronary artery without angina pectoris] Onset: 10-13-2023 [...] Range Facility Office Visiton 12-05-2023 Follow-up visit [id number] Tera Roberto 1975 M Date Provider Department Center 12/05/2023 YAKELIN MICHELLE TATE Abreu Family History Problem Relation Age of Onset Heart attack Maternal Grandfather Family Status - Relation Status Age at Maternal Grandfather Level of Service:72612 NM OFFICE/OUTPATIENT ESTABLISHED MOD MDM 30 MIN Normal [facility] 36on 12-01-2023 36 Patient informed. Normal [facility] 36on 11-29-2023 36 Please let him know his EF improved to 55%. He no longer needs to wear the LifeVest. Follow-up as scheduled. Thanks! Normal [facility] Telephoneon 11-29-2023 Telephone [phone] Tera Roberto 1975 M Date Provider Department Center 11/29/2023 ZACK OLSON Family History Problem Relation Age of Onset Heart attack Maternal Grandfather Family Status - Relation Status Age at Maternal Grandfather Normal [facility] 36on 11-02-2023 36 2nd attempt: LMOM Normal [facility] Follow-Upon 10-13-2023 Follow-Up [id number] Tera Roberto 1975 [facility] Provider Department Center 10/13/2023 166-ZACK MONTGOMERY TATE [facility] Family History Problem Relation Age of Onset Heart attack Maternal Grandfather Family Status - Relation Status Age at Maternal Grandfather Level of Service:91564 NM OFFICE/OUTPATIENT ESTABLISHED MOD MDM 30 MIN Reason for Visit and Comments: Hospital Follow-up [832] Congestive Heart Failure [127] Hypertension [935321] [facility] 10-11-2023 36 Called patient and left a message to call me to schedule a pulmonary hospital follow up with either Dr. Valenzuela or Dr. Diamond. [facility] 10-10-2023 36 Discharge date: Call date: 10/10/23 [...] was very happy with his experience at [facility] and he wanted to thank everyone for saving his life. [facility] Documentationon 10-10-2023 Documentation [id number] CamilleTera 1975 M Date Provider Department Center 10/10/202329617-TLFJLBIROSI ACEVEDO [facility] No family history on file Reason for Visit and Comments: HF inpatient satisfaction survey sent. [Other] [facility] Telephoneon 10-10-2023 Telephone [phone] CamilleTera 1975 M Date Provider Department Center 10/10/202377815-HILQIWEROSI ACEVEDO [facility] No family history on file [facility] 3010-09-2023 30 The patient is Moderately Stable [...] and behaviors that affect risk of falls Rienzi fall precautions as indicated by assessment Problem: [...] the next 3 months Outcome: Progressing Normal [facility] BASIC METABOLIC PANELon 03-0 Anion gap [Moles/Vol] 12 mmol/L Normal 7-20 [facility] Comment on above: Performed By: #### L [id number] ####[facility] (BEAKER)[address] [place] [address] Calcium [Mass/Vol] 8.9 mg/dL Normal 8.6-10.3 [facility] Comment on above: Performed By: #### L [id number] ####[facility] ([facility]AKER)[address] [facility] [address] Chloride [Moles/Vol] 104 mmol/L Normal 98-107 [facility] Comment on above: Performed By: #### L [id number] ####[facility] (BEAKER)[address] [facility] [address] CO2 [Moles/Vol] 25 mmol/L Normal 21-31 [facility] Comment on above: Performed By: #### L [id number] ####[facility] (BEAKER)[address] [place] [address] Creatinine [Mass/Vol] 0.89 mg/dL Normal 0.70-1.30 [facility] Comment on above: Performed By: #### L [id number] ####[facility] ([facility])[address] [place] [address] GLOMERULAR FILTRATION RATE ML/MIN/1.73 SQ M.PREDICTED 104.4 mL/min/1.73m*2 Normal >60.0 [facility] Comment on above: Result Comment: [facility]???s estimated glomerular filtration rate (eGFR) [...] of individuals. Performed By: #### L [id number] ####[facility] ([facility])[address] [place] [address] Glucose [Mass/Vol] 119 mg/dL High 70-100 [facility] Comment on above: Performed By: #### L [id number] ####[facility] ([facility])[address] [place] [address] Potassium [Moles/Vol] 4.1 mmol/L Normal 3.5-5.1 [facility] Comment on above: Performed By: #### L [id number] ####[facility] ([facility])[address] [place] [address] Sodium [Moles/Vol] 137 mmol/L Normal 136-145 [facility] Comment on above: Performed By: #### L [id number] ####[facility] ([facility])[address] [place] [address] Urea nitrogen [Mass/Vol] 29 mg/dL High 7-25 [facility] Comment on above: Performed By: #### L [id number] ####[facility] ([facility])[address] [place] [address] UREA NITROGEN/CREATININE (MASS RATIO) IN SER/PLAS 32.6 Normal [facility] Comment on above: Performed By: #### L [id number] ####[facility] ([facility])[address] [place] [address] CBC WITH AUTO DIFFERENTIALon 10-09-2023 Basophils (Bld) [#/Vol] 0.04 10*3/uL Normal 0.00-0.20 [facility] Comment on above: Performed By: #### L [id number] ####[facility] ([facility])[address] [place] [address] Basophils/100 WBC (Bld) 0.7 % Normal 0.0-1.0 [facility] Comment on above: Performed By: #### L [id number] ####[facility] ([facility])[address] [place] [address] Eosinophils (Bld) [#/Vol] 0.12 10*3/uL Normal 0.00-0.50 [facility] Comment on above: Performed By: #### L [id number] ####[facility] ([facility])[address] [place] [address] Eosinophils/100 WBC (Bld) 2.1 % Normal 0.0-6.0 [facility] Comment on above: Performed By: #### L [id number] ####[facility] ([facility])[address] [place] [address] Erythrocyte distribution width (RBC) [Ratio] 12.0 % Normal 11.5-15.0 [facility] Comment on above: Performed By: #### L [id number] ####[facility] ([facility])[address] [place] [address] ERYTHROCYTE MEAN CORPUSCULAR HEMOGLOBIN CONCENTRATION (G/DL) BY AUTOMATED 34.2 g/dL Normal 32.0-35.0 [facility] Comment on above: Performed By: #### L [id number] ####[facility] ([facility]ER)[address] [place] [address] Hematocrit (Bld) [Volume fraction] 47.7 % Normal 39.0-55.0 [facility] Comment on above: Performed By: #### L [id number] ####[facility] (BEAKER)[address] [place] [address] Hemoglobin (Bld) [Mass/Vol] 16.3 g/dL Normal 13.0-17.0 [facility] Comment on above: Performed By: #### L [id number] ####[facility] ([facility]ER)[address] [place] [address] Immature granulocytes (Bld) [#/Vol] 0.03 10*3/uL Normal 0.00-0.20 [facility] Comment on above: Performed By: #### L [id number] ####[facility] ([facility]ER)[address] [place] [address] Immature granulocytes/100 WBC (Bld) 0.5 % Normal 0.0-1.0 [facility] Comment on above: Performed By: #### L [id number] ####[facility] ([facility])[address] [place] [address] Lymphocytes (Bld) [#/Vol] 1.51 10*3/uL Normal 1.20-4.00 [facility] Comment on above: Performed By: #### L [id number] ####[facility] (BE[facility]ER)[address] [place] [address] Lymphocytes/100 WBC (Bld) 26.2 % Normal 20.0-45.0 [facility] Comment on above: Performed By: #### L [id number] ####[facility] (BE[facility]ER)[address] [place] [address] MCH (RBC) [Entitic mass] 35.0 pg High 27.0-33.0 [facility] Comment on above: Performed By: #### L [id number] ####[facility] ([facility]ER)[address] [place] [address] MCV (RBC) [Entitic vol] 102.4 fL High 82.0-98.0 [facility] Comment on above: Performed By: #### L [id number] ####[facility] ([facility]ER)[address] [place] [address] Monocytes (Bld) [#/Vol] 0.80 10*3/uL Normal 0.10-1.00 [facility] Comment on above: Performed By: #### L [id number] ####[facility] (AKER)[address] [place] [address] Monocytes/100 WBC (Bld) 13.9 % High 5.0-12.0 [facility] Comment on above: Performed By: #### L [id number] ####[facility] (AKER)[address] [place] [address] Neutrophils (Bld) [#/Vol] 3.26 10*3/uL Normal 1.60-7.60 [facility] Comment on above: Performed By: #### L [id number] ####[facility] (AKER)[address] [place] [address] Neutrophils/100 WBC (Bld) 56.6 % Normal 40.0-72.0 [facility] Comment on above: Performed By: #### L [id number] ####[facility] ([facility]ER)[address] [place] [address] NRBC (PER 100 WBCS) BY AUTOMATED COUNT 0.0 % Normal 0 [facility] Comment on above: Performed By: #### L [id number] ####[facility] ([facility]ER)[address] [place] [address] PLATELETS (10*3/UL) IN BLOOD AUTOMATED COUNT 181 10*3/uL Normal 150-400 [facility] Comment on above: Performed By: #### L [id number] ####[facility] ([facility]ER)[address] [place] [address] RBC (Bld) [#/Vol] 4.66 10*6/uL Normal 4.20-5.70 [facility] Comment on above: Performed By: #### L [id number] ####[facility] ([facility])[address] [place] [address] WBC (Bld) [#/Vol] 5.76 10*3/uL Normal 4.00-10.60 [facility] Comment on above: Performed By: #### L [id number] ####[facility] ([facility])[address] [place] [address] MAGNESIUMon 10-09-2023 Magnesium [Mass/Vol] 2.1 mg/dL Normal 1.9-2.7 [facility] Comment on above: Performed By: #### L [id number] #### [facility] ([facility]) [address] [place] [address] POCT GLUCOSE METER UNSOLICIT ED RESULTSon 10-09-2023 Glucose [Mass/Vol] 160 mg/dL High 70-105 [facility] Comment on above: Order Comment: Waive d Testing in the ED is performed under the ED CLIA certificate #[id number]. Result Comment: [email or web address] Performed By: #### L [id number] ####[facility] ([facility])[address] [facility] [address] Glucose [Mass/Vol] 148 mg/dL High 70-105 [facility] Comment on above: Order Comment: Waive d Testing in the ED is performed under the ED CLIA certificate #[id number]. Result Comment: [email or web address] Performed By: #### L [id number] ####[facility] ([facility])[address] [facility] [address] Glucose [Mass/Vol] 146 mg/dL High 70-105 [facility] Comment on above: Order Comment: Waive d Testing in the ED is performed under the ED CLIA certificate #[id number]. Result Comment: [email or web address] Performed By: #### L [id number] ####[facility] ([facility])[address] [place] [address] 30on 10-08-2023 30 The patient is Moderately [...] and behaviors that affect risk of falls Rienzi fall precautions as indicated by assessment Educate [...] and prevent overall improvement and discharge Normal [facility] 30 The patient is Moderately Stable - Low risk of patient condition declining or worsening The patient's goals for the shift include comfort The clinical goals for the shift include hemodynamically stable Problem: Pain - Adult Goal: Verbalizes/displays adequate comfort level or baseline comfort level Outcome: Progressing Problem: Safety - Adult Goal: Free from fall injury Outcome: Progressing Flowsheets (Taken 10/08/2023 0750) Free from fall injury: Assess patient frequently for physical needs Identify cognitive and physical deficits and behaviors that affect risk of falls Rienzi fall precautions as indicated by assessment Problem: [...] the next 3 months Outcome: Progressing Normal [facility] 30 The patient is Moderately [...] and behaviors that affect risk of falls Rienzi fall precautions as indicated by assessment Educate [...] conditions affect the heart Outcome: Progressing Normal [facility] BASIC METABOLIC PANELon 03-0 Anion gap [Moles/Vol] 15 mmol/L Normal 7-20 [facility] Comment on above: Performed By: #### L [id number] #### [facility] ([facility]) [address] [place] [address] Calcium [Mass/Vol] 9.0 mg/dL Normal 8.6-10.3 [facility] Comment on above: Performed By: #### L [id number] #### [facility] ([facility]) [address] [place] [address] Chloride [Moles/Vol] 101 mmol/L Normal 98-107 [facility] Comment on above: Performed By: #### L [id number] #### [facility] ([facility]ER) [address] [place] [address] CO2 [Moles/Vol] 25 mmol/L Normal 21-31 [facility] Comment on above: Performed By: #### L [id number] #### [facility] ([facility]) [address] [place] [address] Creatinine [Mass/Vol] 1.01 mg/dL Normal 0.70-1.30 [facility] Comment on above: Performed By: #### L [id number] #### [facility] [address] [place] [address] GLOMERULAR FILTRATION RATE ML/MIN/1.73 SQ M.PREDICTED 90.6 mL/min/1.73m*2 Normal >60.0 [facility] Comment on above: Result Comment: [facility]???s estimated glomerular filtration rate (eGFR) [...] individuals. Performed By: #### L [id number] #### [facility] ([facility]) [address] [place] [address] Glucose [Mass/Vol] 160 mg/dL High 70-100 [facility] Comment on above: Performed By: #### L [id number] #### [facility] ([facility]) [address] [place] [address] Potassium [Moles/Vol] 4.1 mmol/L Normal 3.5-5.1 [facility] Comment on above: Performed By: #### L [id number] #### [facility] ([facility]) [address] [place] [address] Sodium [Moles/Vol] 137 mmol/L Normal 136-145 [facility] Comment on above: Performed By: #### L [id number] #### [facility] ([facility]) [address] [place] [address] Urea nitrogen [Mass/Vol] 34 mg/dL High 7-25 [facility] Comment on above: Performed By: #### L [id number] #### [facility] ([facility]) [address] [place] [address] UREA NITROGEN/CREATININE (MASS RATIO) IN SER/PLAS 33.7 Normal [facility] Comment on above: Performed By: #### L [id number] #### [facility] ([facility]) [address] [place] [address] CBC WITH AUTO DIFFERENTIALon 10-08-2023 Basophils (Bld) [#/Vol] 0.06 10*3/uL Normal 0.00-0.20 [facility] Comment on above: Performed By: #### L [id number] #### [facility] ([facility]) [address] [place] [address] Basophils/100 WBC (Bld) 1.0 % Normal 0.0-1.0 [facility] Comment on above: Performed By: #### L [id number] #### [facility] ([facility]) [address] [place] [address] Eosinophils (Bld) [#/Vol] 0.12 10*3/uL Normal 0.00-0.50 [facility] Comment on above: Performed By: #### L [id number] #### [facility] ([facility]ER) [address] [place] [address] Eosinophils/100 WBC (Bld) 2.0 % Normal 0.0-6.0 [facility] Comment on above: Performed By: #### L [id number] #### [facility] [address] [place] [address] Erythrocyte distribution width (RBC) [Ratio] 12.2 % Normal 11.5-15.0 [facility] Comment on above: Performed By: #### L [id number] #### [facility] ([facility] [address] [place] [address] ERYTHROCYTE MEAN CORPUSCULAR HEMOGLOBIN CONCENTRATION (G/DL) BY AUTOMATED 33.5 g/dL Normal 32.0-35.0 [facility] Comment on above: Performed By: #### L [id number] #### [facility] ([facility] [address] [place] [address] Hematocrit (Bld) [Volume fraction] 48.0 % Normal 39.0-55.0 [facility] Comment on above: Performed By: #### L [id number] #### [facility] ([facility]) [address] [place] [address] Hemoglobin (Bld) [Mass/Vol] 16.1 g/dL Normal 13.0-17.0 [facility] Comment on above: Performed By: #### L [id number] #### [facility] ([facility]) [address] [place] [address] Immature granulocytes (Bld) [#/Vol] 0.02 10*3/uL Normal 0.00-0.20 [facility] Comment on above: Performed By: #### L [id number] #### [facility] ([facility]) [address] [place] [address] Immature granulocytes/100 WBC (Bld) 0.3 % Normal 0.0-1.0 [facility] Comment on above: Performed By: #### L [id number] #### [facility] ([facility]) [address] [place] [address] Lymphocytes (Bld) [#/Vol] 1.47 10*3/uL Normal 1.20-4.00 [facility] Comment on above: Performed By: #### L [id number] #### [facility] ([facility]) [address] [facility] [place] [address] Lymphocytes/100 WBC (Bld) 24.6 % Normal 20.0-45.0 [facility] Comment on above: Performed By: #### L [id number] #### [facility] ([facility]) [address] [facility] [place] [address] MCH (RBC) [Entitic mass] 34.8 pg High 27.0-33.0 [facility] Comment on above: Performed By: #### L [id number] #### [facility] ([facility]) [address] [place] [address] MCV (RBC) [Entitic vol] 103.9 fL High 82.0-98.0 [facility] Comment on above: Performed By: #### L [id number] #### [facility] ([facility]) [address] [facility] [place] [address] Monocytes (Bld) [#/Vol] 0.85 10*3/uL Normal 0.10-1.00 [facility] Comment on above: Performed By: #### L [id number] #### [facility] ([facility]) [address] [place] [address] Monocytes/100 WBC (Bld) 14.2 % High 5.0-12.0 [facility] Comment on above: Performed By: #### L [id number] #### [facility] ([facility]) [address] [place] [address] Neutrophils (Bld) [#/Vol] 3.46 10*3/uL Normal 1.60-7.60 [facility] Comment on above: Performed By: #### L [id number] #### [facility] ([facility]) [address] [place] [address] Neutrophils/100 WBC (Bld) 57.9 % Normal 40.0-72.0 [facility] Comment on above: Performed By: #### L [id number] #### [facility] ([facility]) [address] [place] [address] NRBC (PER 100 WBCS) BY AUTOMATED COUNT 0.0 % Normal 0 [facility] Comment on above: Performed By: #### L [id number] #### [facility] ([facility]) [address] [place] [address] PLATELETS (10*3/UL) IN BLOOD AUTOMATED COUNT 196 10*3/uL Normal 150-400 [facility] Comment on above: Performed By: #### L [id number] #### [facility] ([facility]) [address] [place] [address] RBC (Bld) [#/Vol] 4.62 10*6/uL Normal 4.20-5.70 [facility] Comment on above: Performed By: #### L [id number] #### [facility] ([facility]) [address] [place] [address] WBC (Bld) [#/Vol] 5.98 10*3/uL Normal 4.00-10.60 [facility] Comment on above: Performed By: #### L [id number] #### [facility] ([facility]) [address] [place] [address] POCT GLUCOSE METER UNSOLICIT ED RESULTSon 10-08-2023 Glucose [Mass/Vol] 171 mg/dL High 70-105 [facility] Comment on above: Order Comment: Waive d Testing in the ED is performed under the ED CLIA certificate #[id number]. Result Comment: [email or web address] Performed By: #### L [id number] ####[facility] ([facility])[address] [place] [address] Glucose [Mass/Vol] 128 mg/dL High 70-105 [facility] Comment on above: Order Comment: Waive d Testing in the ED is performed under the ED CLIA certificate #[id number]. Result Comment: [email or web address] Performed By: #### L [id number] ####[facility] ([facility])[address] [facility] [place] [address] Glucose [Mass/Vol] 170 mg/dL High 70-105 [facility] Comment on above: Order Comment: Waive d Testing in the ED is performed under the ED CLIA certificate #[id number]. Result Comment: [email or web address] Performed By: #### L [id number] ####[facility] ([facility])[address] [facility] [place] [address] Glucose [Mass/Vol] 174 mg/dL High 70-105 [facility] Comment on above: Order Comment: Waive d Testing in the ED is performed under the ED CLIA certificate #[id number]. Result Comment: [email or web address] Performed By: #### L [id number] ####[facility] ([facility])[address] [facility] [place] [address] 30on 10-07-2023 30 The patient is Moderately [...] and behaviors that affect risk of falls Rienzi fall precautions as indicated by assessment Educate [...] the next 3 months Outcome: Progressing Normal [facility] Og 10-07-2023 SAPNAS -- Attestation signed by Yakelin Herrera MD at 10/07/2023 11:02 AM Yakelin Herrera MD, MPH, [facility], [facility], [facility] Interventional Cardiology Pager Email: [email or web address] Patient: Tera Roberto Procedure Information Date/Time: 10/07/23 1700 Procedures: Coronary angiography Right heart cath Location: [facility] / [facility] (Cath) Providers: Yakelin Herrera MD Clinical information reviewed: Allergies Physical Exam Airway Mallampati: III TM distance: >3 FB Neck ROM: full Cardiovascular Rhythm: regular Rate: normal Dental Pulmonary Abdominal Anesthesia Plan ASA 3 Anesthetic plan and risks discussed with patient. Use of blood products discussed with patient who. Plan discussed with attending. Additional Equipment Requests Normal [facility] BASIC METABOLIC PANELon 03-0 Anion gap [Moles/Vol] 14 mmol/L Normal 7-20 [facility] Comment on above: Performed By: #### L [id number] #### [facility] ([facility]) [address] [place] [address] Calcium [Mass/Vol] 9.5 mg/dL Normal 8.6-10.3 [facility] Comment on above: Performed By: #### L [id number] #### [facility] ([facility]) [address] [place] [address] Chloride [Moles/Vol] 101 mmol/L Normal 98-107 [facility] Comment on above: Performed By: #### L [id number] #### [facility] ([facility]) [address] [place] [address] CO2 [Moles/Vol] 26 mmol/L Normal 21-31 [facility] Comment on above: Performed By: #### L [id number] #### [facility] ([facility]) [address] [place] [address] Creatinine [Mass/Vol] 0.96 mg/dL Normal 0.70-1.30 [facility] Comment on above: Performed By: #### L [id number] #### [facility] ([facility]) [address] [place] [address] GLOMERULAR FILTRATION RATE ML/MIN/1.73 SQ M.PREDICTED 96.3 mL/min/1.73m*2 Normal >60.0 [facility] Comment on above: Result Comment: [facility]???s estimated glomerular filtration rate (eGFR) [...] individuals. Performed By: #### L [id number] #### [facility] ([facility]) [address] [place] [address] Glucose [Mass/Vol] 208 mg/dL High 70-100 [facility] Comment on above: Performed By: #### L [id number] #### [facility] ([facility]) [address] [place] [address] Potassium [Moles/Vol] 3.9 mmol/L Normal 3.5-5.1 [facility] Comment on above: Performed By: #### L [id number] #### [facility] ([facility]) [address] [place] [address] Sodium [Moles/Vol] 137 mmol/L Normal 136-145 [facility] Comment on above: Performed By: #### L [id number] #### [facility] ([facility]) [address] [place] [address] Urea nitrogen [Mass/Vol] 30 mg/dL High 7-25 [facility] Comment on above: Performed By: #### L [id number] #### [facility] ([facility]) [address] [place] [address] UREA NITROGEN/CREATININE (MASS RATIO) IN SER/PLAS 31.3 Normal [facility] Comment on above: Performed By: #### L [id number] #### [facility] ([facility]) [address] [place] [address] CBC WITH AUTO DIFFERENTIALon 10-07-2023 Basophils (Bld) [#/Vol] 0.03 10*3/uL Normal 0.00-0.20 [facility] Comment on above: Performed By: #### L [id number] #### [facility] ([facility]) [address] [place] [address] Basophils/100 WBC (Bld) 0.6 % Normal 0.0-1.0 [facility] Comment on above: Performed By: #### L [id number] #### [facility] ([facility]) [address] [place] [address] Eosinophils (Bld) [#/Vol] 0.11 10*3/uL Normal 0.00-0.50 [facility] Comment on above: Performed By: #### L [id number] #### [facility] ([facility]) [address] [place] [address] Eosinophils/100 WBC (Bld) 2.0 % Normal 0.0-6.0 [facility] Comment on above: Performed By: #### L [id number] #### [facility] ([facility]) [address] [place] [address] Erythrocyte distribution width (RBC) [Ratio] 12.2 % Normal 11.5-15.0 [facility] Comment on above: Performed By: #### L [id number] #### [facility] ([facility]) [address] [place] [address] ERYTHROCYTE MEAN CORPUSCULAR HEMOGLOBIN CONCENTRATION (G/DL) BY AUTOMATED 34.3 g/dL Normal 32.0-35.0 [facility] Comment on above: Performed By: #### L [id number] #### [facility] ([facility]) [address] [place] [address] Hematocrit (Bld) [Volume fraction] 50.5 % Normal 39.0-55.0 [facility] Comment on above: Performed By: #### L [id number] #### [facility] ([facility]) [address] [place] [address] Hemoglobin (Bld) [Mass/Vol] 17.3 g/dL High 13.0-17.0 [facility] Comment on above: Performed By: #### L [id number] #### [facility] ([facility]) [address] [place] [address] Immature granulocytes (Bld) [#/Vol] 0.02 10*3/uL Normal 0.00-0.20 [facility] Comment on above: Performed By: #### L [id number] #### [facility] ([facility]) [address] [place] [address] Immature granulocytes/100 WBC (Bld) 0.4 % Normal 0.0-1.0 [facility] Comment on above: Performed By: #### L [id number] #### [facility] ([facility]) [address] [place] [address] Lymphocytes (Bld) [#/Vol] 1.32 10*3/uL Normal 1.20-4.00 [facility] Comment on above: Performed By: #### L [id number] #### [facility] ([facility]) [address] [place] [address] Lymphocytes/100 WBC (Bld) 24.3 % Normal 20.0-45.0 [facility] Comment on above: Performed By: #### L [id number] #### [facility] ([facility]) [address] [place] [address] MCH (RBC) [Entitic mass] 34.9 pg High 27.0-33.0 [facility] Comment on above: Performed By: #### L [id number] #### [facility] ([facility]) [address] [place] [address] MCV (RBC) [Entitic vol] 102.0 fL High 82.0-98.0 [facility] Comment on above: Performed By: #### L [id number] #### [facility] ([facility]) [address] [place] [address] Monocytes (Bld) [#/Vol] 0.68 10*3/uL Normal 0.10-1.00 [facility] Comment on above: Performed By: #### L [id number] #### [facility] ([facility]) [address] [place] [address] Monocytes/100 WBC (Bld) 12.5 % High 5.0-12.0 [facility] Comment on above: Performed By: #### L [id number] #### [facility] ([facility]) [address] [place] [address] Neutrophils (Bld) [#/Vol] 3.27 10*3/uL Normal 1.60-7.60 [facility] Comment on above: Performed By: #### L [id number] #### [facility] ([facility]) [address] [place] [address] Neutrophils/100 WBC (Bld) 60.2 % Normal 40.0-72.0 [facility] Comment on above: Performed By: #### L [id number] #### [facility] ([facility]) [address] [place] [address] NRBC (PER 100 WBCS) BY AUTOMATED COUNT 0.0 % Normal 0 [facility] Comment on above: Performed By: #### L [id number] #### [facility] ([facility]) [address] [place] [address] PLATELETS (10*3/UL) IN BLOOD AUTOMATED COUNT 216 10*3/uL Normal 150-400 [facility] Comment on above: Performed By: #### L [id number] #### [facility] [address] [place] [address] RBC (Bld) [#/Vol] 4.95 10*6/uL Normal 4.20-5.70 [facility] Comment on above: Performed By: #### L [id number] #### [facility] ([facility]) [address] [place] [address] WBC (Bld) [#/Vol] 5.43 10*3/uL Normal 4.00-10.60 [facility] Comment on above: Performed By: #### L [id number] #### [facility] ([facility]) [address] [place] [address] CONSULTon 10-07-2023 CONSULT -- Attestation signed by [...] bilateral hilar lymphadenopathy. Patient was transferred to [facility] for further evaluation, echocardiogram showed EF [...] No Food Insecurity (more content not included)... [facility] HPon 10-07-2023 HP -- Attestation signed by Yakeiln Herrera MD at 10/07/2023 11:02 AM Yakelin Herrera MD, MPH, [facility], [facility], [facility] Interventional Cardiology Pager Email: [email or web address] H&P reviewed. Patient with multiple coronary artery [...] were addressed and answered. Florina Prasad MD Sewer Tapper - PGY5 [facility] Normal [facility] POCT GLUCOSE METER UNSOLICIT ED RESULTSon 10-07-2023 Glucose [Mass/Vol] 173 mg/dL High 70-105 [facility] Comment on above: Order Comment: Waive d Testing in the ED is performed under the ED CLIA certificate #[id number]. Result Comment: [email or web address] Performed By: #### L [id number] #### [facility] ([facility] [address] [place] [address] Glucose [Mass/Vol] 169 mg/dL High 70-105 [facility] Comment on above: Order Comment: Waive d Testing in the ED is performed under the ED CLIA certificate #[id number]. Result Comment: [email or web address] Performed By: #### L [id number] ####[facility] ([facility])[address] [place] [address] Glucose [Mass/Vol] 242 mg/dL High 70-105 [facility] Comment on above: Order Comment: Waive d Testing in the ED is performed under the ED CLIA certificate #[id number]. Result Comment: [email or web address] Performed By: #### L [id number] #### [facility] ([facility]) [address] [place] [address] 30on 10-06-2023 30 The patient is Moderately [...] and behaviors that affect risk of falls Rienzi fall precautions as indicated by assessment Educate [...] and prevent overall improvement and discharge Normal [facility] 30 The patient is Moderately Stable - Low risk of patient condition declining or worsening The patient's goals for the shift include rest The clinical goals for the shift include comfort/vss Normal [facility] 30 The patient is Moderately [...] and maintained or improved Outcome: Progressing Normal [facility] B-TYPE NATRIURETIC PEPTIDEon 10-06-2023 Natriuretic peptide B (Bld) [Mass/Vol] 752 pg/mL High 0-100 [facility] Comment on above: Performed By: #### L [id number] #### [facility] ([facility]) [address] [place] [address] Natriuretic peptide B (Bld) [Mass/Vol] 711 pg/mL High 0-100 [facility] Comment on above: Performed By: #### L [id number] #### [facility] ([facility] [address] [place] [address] BASIC METABOLIC PANELon 09-09 Anion gap [Moles/Vol] 16 mmol/L Normal 7-20 [facility] Comment on above: Performed By: #### L [id number] ####[facility] ([facility] [place] [address] Calcium [Mass/Vol] 9.7 mg/dL Normal 8.6-10.3 [facility] Comment on above: Performed By: #### L [id number] ####[facility] ([facility])[address] [place] [address] Chloride [Moles/Vol] 99 mmol/L Normal 98-107 [facility] Comment on above: Performed By: #### L [id number] ####[facility] ([facility])[address] [place] [address] CO2 [Moles/Vol] 26 mmol/L Normal 21-31 [facility] Comment on above: Performed By: #### L [id number] ####[facility] ([facility])[address] [place] [address] Creatinine [Mass/Vol] 1.03 mg/dL Normal 0.70-1.30 [facility] Comment on above: Performed By: #### L [id number] ####[facility] ([facility])[address] [place] [address] GLOMERULAR FILTRATION RATE ML/MIN/1.73 SQ M.PREDICTED 88.5 mL/min/1.73m*2 Normal >60.0 [facility] Comment on above: Result Comment: [facility]???s estimated glomerular filtration rate (eGFR) [...] of individuals. Performed By: #### L [id number] ####[facility] ([facility])[address] [address] Glucose [Mass/Vol] 185 mg/dL High 70-100 [facility] Comment on above: Performed By: #### L [id number] ####[facility] ([facility])[address] [place] [address] Potassium [Moles/Vol] 4.3 mmol/L Normal 3.5-5.1 [facility] Comment on above: Performed By: #### L [id number] ####[facility] ([facility])[address] [place] [address] Sodium [Moles/Vol] 137 mmol/L Normal 136-145 [facility] Comment on above: Performed By: #### L [id number] ####[facility] ([facility])[address] [place] [address] Urea nitrogen [Mass/Vol] 22 mg/dL Normal 7-25 [facility] Comment on above: Performed By: #### L [id number] ####[facility] ([facility] [place] [address] UREA NITROGEN/CREATININE (MASS RATIO) IN SER/PLAS 21.4 Normal [facility] Comment on above: Performed By: #### L [id number] ####[facility] ([facility])[address] [place] [address] Anion gap [Moles/Vol] 16 mmol/L Normal 7-20 [facility] Comment on above: Performed By: #### L [id number] #### [facility] ([facility]) [address] [place] [address] Calcium [Mass/Vol] 9.6 mg/dL Normal 8.6-10.3 [facility] Comment on above: Performed By: #### L [id number] #### [facility] ([facility]) [address] [place] [address] Chloride [Moles/Vol] 99 mmol/L Normal 98-107 [facility] Comment on above: Performed By: #### L [id number] #### [facility] ([facility]) [address] [place] [address] CO2 [Moles/Vol] 26 mmol/L Normal 21-31 [facility] Comment on above: Performed By: #### L [id number] #### [facility] ([facility]) [address] [place] [address] Creatinine [Mass/Vol] 0.98 mg/dL Normal 0.70-1.30 [facility] Comment on above: Performed By: #### L [id number] #### [facility] ([facility]) [address] [place] [address] GLOMERULAR FILTRATION RATE ML/MIN/1.73 SQ M.PREDICTED 93.9 mL/min/1.73m*2 Normal >60.0 [facility] Comment on above: Result Comment: [facility]???s estimated glomerular filtration rate (eGFR) [...] individuals. Performed By: #### L [id number] #### [facility] ([facility]) [address] [place] [address] Glucose [Mass/Vol] 176 mg/dL High 70-100 [facility] Comment on above: Performed By: #### L [id number] #### [facility] ([facility]) [address] [place] [address] Potassium [Moles/Vol] 4.3 mmol/L Normal 3.5-5.1 [facility] Comment on above: Performed By: #### L [id number] #### [facility] ([facility]) [address] [facility] [place] [address] Sodium [Moles/Vol] 137 mmol/L Normal 136-145 [facility] Comment on above: Performed By: #### L [id number] #### [facility] ([facility]) [address] [place] [address] Urea nitrogen [Mass/Vol] 22 mg/dL Normal 7-25 [facility] Comment on above: Performed By: #### L [id number] #### [facility] ([facility]) [address] [place] [address] UREA NITROGEN/CREATININE (MASS RATIO) IN SER/PLAS 22.4 Normal [facility] Comment on above: Performed By: #### L [id number] #### [facility] ([facility]) [address] [place] [address] CBC WITH AUTO DIFFERENTIALon 10-06-2023 Basophils (Bld) [#/Vol] 0.06 10*3/uL Normal 0.00-0.20 [facility] Comment on above: Performed By: #### L [id number] ####[facility] ([facility])[address] [place] [address] Basophils/100 WBC (Bld) 1.0 % Normal 0.0-1.0 [facility] Comment on above: Performed By: #### L [id number] ####[facility] ([facility])[address] [place] [address] Eosinophils (Bld) [#/Vol] 0.11 10*3/uL Normal 0.00-0.50 [facility] Comment on above: Performed By: #### L [id number] ####[facility] ([facility])[address] [place] [address] Eosinophils/100 WBC (Bld) 1.8 % Normal 0.0-6.0 [facility] Comment on above: Performed By: #### L [id number] ####[facility] ([facility] [place] [address] Erythrocyte distribution width (RBC) [Ratio] 12.3 % Normal 11.5-15.0 [facility] Comment on above: Performed By: #### L [id number] ####[facility] ([facility])[address] [place] [address] ERYTHROCYTE MEAN CORPUSCULAR HEMOGLOBIN CONCENTRATION (G/DL) BY AUTOMATED 34.1 g/dL Normal 32.0-35.0 [facility] Comment on above: Performed By: #### L [id number] ####[facility] ([facility] [place] [address] Hematocrit (Bld) [Volume fraction] 50.7 % Normal 39.0-55.0 [facility] Comment on above: Performed By: #### L [id number] ####[facility] ([facility])[address] [place] [address] Hemoglobin (Bld) [Mass/Vol] 17.3 g/dL High 13.0-17.0 [facility] Comment on above: Performed By: #### L [id number] ####[facility] ([facility])[address] [place] [address] Immature granulocytes (Bld) [#/Vol] 0.02 10*3/uL Normal 0.00-0.20 [facility] Comment on above: Performed By: #### L [id number] ####[facility] ([facility])[address] [place] [address] Immature granulocytes/100 WBC (Bld) 0.3 % Normal 0.0-1.0 [facility] Comment on above: Performed By: #### L [id number] ####[facility] ([facility])[address] [place] [address] Lymphocytes (Bld) [#/Vol] 1.25 10*3/uL Normal 1.20-4.00 [facility] Comment on above: Performed By: #### L [id number] ####[facility] ([facility])[address] [place] [address] Lymphocytes/100 WBC (Bld) 20.1 % Normal 20.0-45.0 [facility] Comment on above: Performed By: #### L [id number] ####[facility] ([facility])[address] [place] [address] MCH (RBC) [Entitic mass] 34.7 pg High 27.0-33.0 [facility] Comment on above: Performed By: #### L [id number] ####[facility] ([facility])[address] [place] [address] MCV (RBC) [Entitic vol] 101.6 fL High 82.0-98.0 [facility] Comment on above: Performed By: #### L [id number] ####[facility] ([facility])[address] [place] [address] Monocytes (Bld) [#/Vol] 0.75 10*3/uL Normal 0.10-1.00 [facility] Comment on above: Performed By: #### L [id number] ####[facility] ([facility])[address] [place] [address] Monocytes/100 WBC (Bld) 12.0 % Normal 5.0-12.0 [facility] Comment on above: Performed By: #### L [id number] ####[facility] ([facility])[address] [place] [address] Neutrophils (Bld) [#/Vol] 4.04 10*3/uL Normal 1.60-7.60 [facility] Comment on above: Performed By: #### L [id number] ####[facility] ([facility])[address] [place] [address] Neutrophils/100 WBC (Bld) 64.8 % Normal 40.0-72.0 [facility] Comment on above: Performed By: #### L [id number] ####[facility] ([facility])[address] [place] [address] NRBC (PER 100 WBCS) BY AUTOMATED COUNT 0.0 % Normal 0 [facility] Comment on above: Performed By: #### L [id number] ####[facility] ([facility])[address] [place] [address] PLATELETS (10*3/UL) IN BLOOD AUTOMATED COUNT 219 10*3/uL Normal 150-400 [facility] Comment on above: Performed By: #### L [id number] ####[facility] ([facility])[address] [place] [address] RBC (Bld) [#/Vol] 4.99 10*6/uL Normal 4.20-5.70 [facility] Comment on above: Performed By: #### L [id number] ####[facility] ([facility])[address] [place] [address] WBC (Bld) [#/Vol] 6.23 10*3/uL Normal 4.00-10.60 [facility] Comment on above: Performed By: #### L [id number] ####[facility] ([facility])[address] [place] [address] CONSULTon 10-06-2023 CONSULT -- Attestation signed by [...] obesity, LARS, tobacco dependence intially presents to [facility] after sudden onset SOB. He woke [...] for takotsubo cardiomyopathy. Patient was transferred to [facility] for further evalaution. Upon arrival, patient [...] Value Ventricular Rate 88 Atrial Rate 88 NM Interval 162 QRS DURATION 84 QT Interval 404 QTC CALCULATION(BAZETT) 488 P [place] 50 R-[place] 0 T Wave [place] 61 Impression Sinus rhythm with occasional Premature [...] pulmonary process is noted Electronically signed: Carmen rTujillo. ECG 12 l (more content not included)... Normal [facility] CONSULT Clinical Nutrition Assessment Name: [...] with questions and contact the dietitian via [employer] chat 8A-4P Tuesday-Tuesday. Or call the dietitian's office at extension [phone]. For weekends/holidays, the dietitian's can be reached by paging [phone] from 9A-3P. Unable to be reached via [employer] chat on Tuesday & .) [facility] -- Attestation signed by Carlos [...] obesity, LARS, tobacco dependence intially presents to [facility] after sudden onset SOB. He woke [...] for takotsubo cardiomyopathy. Patient was transferred to [facility] for further evalaution. Upon arrival, patient [...] Value Ventricular Rate 88 Atrial Rate 88 NM Interval 162 QRS DURATION 84 QT Interval 404 QTC CALCULATION(BAZETT) 488 P [place] 50 R-[place] 0 T Wave [place] 61 Impression Sinus rhythm with occasional Premature [...] 12 l (more content not included)... Normal [facility] LEGIONELLA ANTIGEN, URINEon 10-06-2023 LEGIONELLA AG, UR Negative Normal NEG [facility] Comment on above: Result Comment: L. p neumophila serogroup 1 antigen not detected. A negative result does not exclude infection with Leginella pnemophila serogroup 1 nor does it rule out other microbial-caused respiratory infections of disease caused by other serogroups of Legionella pneumophila. Test Performed by [facility] [address] [place] [address] - Released 10/06/2023 20:50 Performed By: #### L [id number] ####[facility] [id number] [place] [address] LIPID PANELon 10-06-2023 CHOL/HDL 4.5 mg/dL Normal [facility] Comment on above: Performed By: #### L [id number] #### [facility] ([facility]) [address] [place] [address] Cholesterol [Mass/Vol] 229 mg/dL High 120-200 [facility] Comment on above: Performed By: #### L [id number] #### [facility] ([facility]) [address] [place] [address] CHOLESTEROL IN LDL (MG/DL) IN SERUM OR PLASMA BY CALCULATION Normal [facility] Comment on above: Result Comment: Calc ulated LDL invalid, triglycerides >400 mg/dl Performed By: #### L [id number] #### [facility] ([facility]) [address] [place] [address] Magnesium [Mass/Vol] 469 mg/dL High 40-149 [facility] Comment on above: Result Comment: TRIG LYCERIDE REFERENCE RANGE: 20 YEARS AND OLDER CARDIOVASCULAR RISK LESS THAN 150 mg/dL LOW RISK 150 TO 199 mg/dL BORDERLINE RISK 200 mg/dL AND GREATER HIGH RISK Performed By: #### L [id number] #### [facility] ([facility]) [address] [place] [address] Magnesium [Mass/Vol] 51 mg/dL Normal 23-92 [facility] Comment on above: Performed By: #### L [id number] #### [facility] ([facility]) [address] [place] [address] NON HDL CHOL. (LDL+VLDL) 178 Normal [facility] Comment on above: Performed By: #### L [id number] #### [facility] ([facility]) [address] [place] [address] TOTAL VLDL-C 94 mg/dL High 0-40 [facility] Comment on above: Performed By: #### L [id number] #### [facility] ([facility]) [address] [place] [address] POCT GLUCOSE METER UNSOLICIT ED RESULTSon 10-06-2023 Glucose [Mass/Vol] 276 mg/dL High 70-105 [facility] Comment on above: Order Comment: Waive d Testing in the ED is performed under the ED CLIA certificate #[id number]. Result Comment: [email or web address] Performed By: #### L [id number] #### [facility] ([employer]) [address] [address] Glucose [Mass/Vol] 187 mg/dL High 70-105 [facility] Comment on above: Order Comment: Waive d Testing in the ED is performed under the ED CLIA certificate #[id number]. Result Comment: [email or web address] Performed By: #### L [id number] #### [facility] ([facility]) [address] [address] Glucose [Mass/Vol] 183 mg/dL High 70-105 [facility] Comment on above: Order Comment: Waive d Testing in the ED is performed under the ED CLIA certificate #[id number]. Result Comment: [email or web address] [email or web address] Performed By: #### L [id number] #### [facility] ([facility]) [address] [place] [address] Glucose [Mass/Vol] 183 mg/dL High 70-105 [facility] Comment on above: Order Comment: Waive d Testing in the ED is performed under the ED CLIA certificate #[id number]. Result Comment: [email or web address] [email or web address] Performed By: #### L [id number] ####[facility] ([facility])[address] [place] [address] STREP PNEUMONIAE ANTIGEN, UR INEon 10-06-2023 STREPTOCOCCUS PNEUMONIAE AG PRESENCE IN URINE Negative Normal Negative [facility] Comment on above: Performed By: #### L [id number] ####[facility] ([facility])[address] [place] [address] TROPONIN Ion 10-06-2023 Troponin I.cardiac [Mass/Vol] 0.03 ng/mL Normal 0.00-0.04 [facility] Comment on above: Performed By: #### L [id number] ####[facility] ([facility])[address] [place] [address] CBCon 10-05-2023 Erythrocyte distribution width (RBC) [Ratio] 12.3 % Normal 11.5-15.0 [facility] Comment on above: Performed By: #### L [id number] #### [facility] ([facility]) [address] [place] [address] ERYTHROCYTE MEAN CORPUSCULAR HEMOGLOBIN CONCENTRATION (G/DL) BY AUTOMATED 33.8 g/dL Normal 32.0-35.0 [facility] Comment on above: Performed By: #### L [id number] #### [facility] ([facility]) [address] [place] [address] Hematocrit (Bld) [Volume fraction] 49.4 % Normal 39.0-55.0 [facility] Comment on above: Performed By: #### L [id number] #### [facility] ([facility]) [address] [place] [address] Hemoglobin (Bld) [Mass/Vol] 16.7 g/dL Normal 13.0-17.0 [facility] Comment on above: Performed By: #### L [id number] #### [facility] ([facility]) [address] [place] [address] IMMATURE PLATELET FRACTION % 11.1 % High 0.8-6.3 [facility] Comment on above: Performed By: #### L [id number] #### [facility] ([facility]) [address] [place] [address] MCH (RBC) [Entitic mass] 34.9 pg High 27.0-33.0 [facility] Comment on above: Performed By: #### L [id number] #### [facility] ([facility]) [address] [place] [address] MCV (RBC) [Entitic vol] 103.3 fL High 82.0-98.0 [facility] Comment on above: Performed By: #### L [id number] #### [facility] ([facility]) [address] [place] [address] PLATELETS (10*3/UL) IN BLOOD AUTOMATED COUNT 149 10*3/uL Low 150-400 [facility] Comment on above: Performed By: #### L [id number] #### [facility] ([facility]) [address] [place] [address] RBC (Bld) [#/Vol] 4.78 10*6/uL Normal 4.20-5.70 [facility] Comment on above: Performed By: #### L [id number] #### [facility] ([facility]) [address] [place] [address] WBC (Bld) [#/Vol] 6.46 10*3/uL Normal 4.00-10.60 [facility] Comment on above: Performed By: #### L [id number] #### [facility] ([facility]) [address] [place] [address] HEMOGLOBIN A1Con 10-05-2023 Glucose [Mass/Vol] 183 mg/dL Normal [facility] Comment on above: Performed By: #### L [id number] #### [facility] ([facility]) [address] [place] [address] HbA1c (Bld) [Mass fraction] 8.0 % High 4.0-6.0 [facility] Comment on above: Performed By: #### L [id number] #### [facility] ([facility]) [address] [place] [address] POCT GLUCOSE METER UNSOLICIT ED RESULTSon 10-05-2023 Glucose [Mass/Vol] 229 mg/dL High 70-105 [facility] Comment on above: Order Comment: Waive d Testing in the ED is performed under the ED CLIA certificate #[id number]. Result Comment: [email or web address] Performed By: #### L [id number] ####[facility] ([facility])[address] [facility] [place] [address] Covid-19 PCR ([facility])on 07-09 SARS-CoV-2 (COVID-19) RNA NIXON+probe Ql (Unsp spec) Detected Critically abnormal NOT DETECTED [facility] Comment on above: Result Comment: This test is not yet approved or cleared by the [place] FDA. When there are no FDA-approved or cleared tests available, and other criteria are met, FDA can make tests available under an emergency access mechanism called an Emergency Use Authorization (EUA). The EUA for this test is supported by the [place] of Health and Human Service's (HHS's) declaration [...] Performed By: #### A 1C #### [facility] [address] [place] [address] Dr. Bridger Aggarwal INFLUENZA A AND B AGon 08-03 [facility] SEE BELOW Normal [facility] Comment on above: Result Comment: Nega tive for Flu A protein angiten. Infection due to Flu A cannot be ruled out. Flu A angiten in the sample may be below the detection limit of the test. Performed By: #### I NFLUAB #### [facility] [address] [place] [address] Dr. Bridger Agg[facility] Normal [facility] Comment on above: Result Comment: Nega tive for Flu B protein antigen. Infection due to Flu B cannot be ruled out. Flu B antigen in the sample may be below the detection limit of the test. Performed By: #### I NFLUAB #### [facility] [address] [place] [address] Dr. Bridger Aggarwal INFLUENZA A AG Negative Normal NEGATIVE SEE COMMENT [facility] Comment on above: Performed By: #### I NFLUAB #### [facility] [address] [place] [address] Dr. Bridger Aggarwal INFLUENZA B AG Negative Normal NEGATIVE SEE COMMENT [facility] Comment on above: Performed By: #### I NFLUAB #### [facility] [address] [place] [address] Dr. Bridger Aggarwal INTERNAL CONTROLS Within Normal Limits Normal Wi thin Normal Limits [facility] Comment on above: Performed By: #### I NFLUAB #### [facility] [address] [place] [address] Dr. Bridger Aggarwal CULTURE WOUNDon 04-23-2022 CULTURE [...] Oxacillin <=0.25 S F Normal [facility] Comment on above: Performed By: #### A 1C #### [facility] [address] [place] [address] Dr. Bridger Aggarwal Covid-19 PCR ([facility])on 03-09 SARS-CoV-2 (COVID-19) RNA NIXON+probe Ql (Unsp spec) Not detected Normal NOT DETECTED [facility] Comment on above: Result Comment: This test is not yet approved or cleared by the [place] FDA. When there are no FDA-approved or cleared tests available, and other criteria are met, FDA can make tests available under an emergency access mechanism called an Emergency Use Authorization (EUA). The EUA for this test is supported by the Med[place] Reconciliation Techn[place] of Health and Human Service's (HHS's) declaration [...] Performed By: #### A 1C #### [facility] [address] [place] [address] Dr. Bridger Aggarwal Covid-19 PCR ([facility])on SARS-CoV-2 (COVID-19) RNA NIXON+probe Ql (Unsp spec) Not detected Normal NOT DETECTED [facility] Comment on above: Result Comment: When [...] for this test is supported by the [place] of Health and Human Service's declaration that [...] Performed By: #### A 1C #### [facility] [address] [place] [address] Dr. Bridger Aggarwal T4 LABCORPon 01-01-2022 T4 [Mass/Vol] 4.7 ug/dL Normal 4.5-12.0 [facility] Comment on above: Performed By: #### A 1C #### [facility] [address] [place] [address] Dr. Bridger Aggarwal FREE THYROXINE INDEX T7on FTI 1.69 Normal 1.30-4.50 [facility] Comment on above: Performed By: #### A 1C #### [facility] [address] [place] [address] Dr. Bridger Aggarwal T3U 36.0 % Normal 33.0-40.0 [facility] Comment on above: Performed By: #### A 1C #### [facility] [address] [place] [address] Dr. Bridger Aggarwal T4 [Mass/Vol] 4.70 ug/dL Normal 4.50-12.10 [facility] Comment on above: Performed By: #### A 1C #### [facility] [address] [place] [address] Dr. Bridger Aggawral TSHon 12-28-2021 TSH 0.969 uIU/mL Normal 0.358-3.740 [facility] Comment on above: Performed By: #### A 1C #### [facility] [address] [place] [address] Dr. Bridger Aggarwal TSH RANGE SEE BELOW Normal [facility] Comment on above: Result Comment: <0.3 4 UIU/ml HYPERTHYROID 0.34-5.60 UIU/ml EUTHYROID >5.60 UIU/ml HYPOTHYROID Performed By: #### A 1C #### [facility] [address] [place] [address] Dr. Bridger Aggarwal CBC AUTO DIFFon 12-26-2021 BASO # 0.0 103/ul Normal 0.0-0.1 [facility] Comment on above: Performed By: #### C BC #### [facility] [address] [place] [address] Dr. Bridger Aggarwal Basophils/100 WBC (Bld) 0.4 % Normal 0.2-2.0 [facility] Comment on above: Performed By: #### C BC #### [facility] [address] [place] [address] Dr. rBidger Aggarwal EO # 0.1 103/ul Normal 0.0-0.7 [facility] Comment on above: Performed By: #### C BC #### [facility] [address] [place] [address] Dr. Bridger Aggarwal Eosinophils/100 WBC (Bld) 0.6 % Critically low 0.9-7.0 [facility] Comment on above: Performed By: #### C BC #### [facility] [address] [place] [address] Dr. Bridger Aggarwal Erythrocyte distribution width (RBC) [Ratio] 12.0 % Normal 11.0-15.0 [facility] Comment on above: Performed By: #### C BC #### [facility] [address] [place] [address] Dr. Bridger Aggarwal Hematocrit (Bld) [Volume fraction] 44.9 % Normal 42.0-54.0 [facility] Comment on above: Performed By: #### C BC #### [facility] [address] [place] [address] Dr. Bridger Aggarwal Hemoglobin (Bld) [Mass/Vol] 15.4 g/dL Normal 14.0-18.0 [facility] Comment on above: Performed By: #### C BC #### [facility] [address] [place] [address] Dr. Bridger Aggarwal IG # 0.03 10e3/ul Normal 0.00-0.03 [facility] Comment on above: Performed By: #### C BC #### [facility] [address] [place] [address] Dr. Bridger Aggarwal IG % 0.3 % Normal 0.0-0.5 [facility] Comment on above: Performed By: #### C BC #### [facility] [address] [place] [address] Dr. Bridger Aggarwal LYMPH # 1.5 103/ul Normal 1.2-3.8 [facility] Comment on above: Performed By: #### C BC #### [facility] [address] [place] [address] Dr. Bridger Aggarwal Lymphocytes/100 WBC (Bld) 14.2 % Critically low 20.5-60.0 [facility] Comment on above: Performed By: #### C BC #### [facility] [address] [place] [address] Dr. Bridger Aggarwal MANUAL DIFF REQ NO Normal [facility] Comment on above: Performed By: #### C BC #### [facility] [address] [place] [address] Dr. Bridger Aggarwal MCH (RBC) [Entitic mass] 34.2 pg Critically high 25.9-34.0 [facility] Comment on above: Performed By: #### C BC #### [facility] [address] [place] [address] Dr. Bridger Aggarwal MCHC (RBC) [Mass/Vol] 34.3 g/dL Normal 29.9-35.2 [facility] Comment on above: Performed By: #### C BC #### [facility] [address] [place] [address] Dr. Bridger Aggarwal MCV (RBC) [Entitic vol] 99.8 fL Critically high 80.0-94.0 [facility] Comment on above: Performed By: #### C BC #### [facility] [address] [place] [address] Dr. Bridger Aggarwal MONO # 0.7 103/ul Normal 0.3-0.8 [facility] Comment on above: Performed By: #### C BC #### [facility] [address] [place] [address] Dr. Bridger Aggarwal Monocytes/100 WBC (Bld) 6.3 % Normal 1.7-12.0 [facility] Comment on above: Performed By: #### C BC #### [facility] [address] [place] [address] Dr. Bridger Aggarwal NEUT # 8.2 103/ul Critically high 1.4-6.5 [facility] Comment on above: Performed By: #### C BC #### [facility] [address] [place] [address] Dr. Bridger gAgarwal Neutrophils/100 WBC (Bld) 78.2 % Critically high 43.0-75.0 [facility] Comment on above: Performed By: #### C BC #### [facility] [address] [place] [address] Dr. Bridger Aggarwal Platelet mean volume (Bld) [Entitic vol] 9.6 fL Normal 9.5-13.5 [facility] Comment on above: Performed By: #### C BC #### [facility] [address] [place] [address] Dr. Bridger Aggarwal PLT 247 103/ul Normal 150-450 [facility] Comment on above: Performed By: #### C BC #### [facility] [address] [address] [address] Bridger Aggarwal RBC 4.50 106/ul Critically low 4.70-6.10 [facility] Comment on above: Performed By: #### C BC #### [facility] [address] [place] [address] Dr. Bridger Aggarwal WBC 10.5 103/ul Normal 4.0-11.0 [facility] Comment on above: Performed By: #### C BC #### [facility] [address] [place] [address] HEAD WO CONon [...] LALA Date: 2021-12-26 13:30 Normal [facility] PROF CHEM 8 (BAS METB)on Anion gap [Moles/Vol] 17.1 mmol/L Normal [facility] Comment on above: Performed By: #### A 1C #### [facility] [address] [place] [address] Dr. Bridger Aggarwal Calcium [Mass/Vol] 9.4 mg/dL Normal 8.5-10.1 [facility] Comment on above: Performed By: #### A 1C #### [facility] [address] [place] [address] Dr. Bridger Aggarwal Chloride [Moles/Vol] 97 mmol/L Critically low 98-107 [facility] Comment on above: Performed By: #### A 1C #### [facility] [address] [place] [address] Dr. Bridger Aggarwal CO2 [Moles/Vol] 20.6 mmol/L Critically low 21.0-32.0 [facility] Comment on above: Performed By: #### A 1C #### [facility] [address] [place] [address] Dr. Bridger Aggarwal Creatinine [Mass/Vol] 0.96 mg/dL Normal 0.70-1.30 [facility] Comment on above: Performed By: #### A 1C #### [facility] [address] [place] [address] Dr. Bridger Aggarwal EGFR-AF SWAZI >60 Normal >=60 [facility] Comment on above: Performed By: #### A 1C #### [facility] [address] [place] [address] Dr. Bridger Aggarwal EGFR-NON AF SWAZI >60 Normal >=60 [facility] Comment on above: Performed By: #### A 1C #### [facility] [address] [place] [address] Dr. Bridger Aggarwal Glucose [Mass/Vol] 216 mg/dL Critically high 74-106 [facility] Comment on above: Performed By: #### A 1C #### [facility] [address] [place] [address] Dr. Bridger Aggarwal Potassium [Moles/Vol] 3.7 mmol/L Normal 3.5-5.1 [facility] Comment on above: Performed By: #### A 1C #### [facility] [address] [place] [address] Dr. Bridger Aggarwal Sodium [Moles/Vol] 131 mmol/L Critically low 136-145 [facility] Comment on above: Performed By: #### A 1C #### [facility] [address] [place] [address] Dr. Bridger Aggarwal Urea nitrogen [Mass/Vol] 26.0 mg/dL Critically high 7.0-18.0 [facility] Comment on above: Performed By: #### A 1C #### [facility] [address] [place] [address] Dr. Bridger Aggarwal Urea nitrogen/Creatinine [Mass ratio] 27.1 mg/mg Normal [facility] Comment on above: Performed By: #### A 1C #### [facility] [address] [place] [address] Dr. Bridger Aggarwal CBC AUTO DIFFon 12-18-2021 BASO # 0.0 103/ul Normal 0.0-0.1 [facility] Comment on above: Performed By: #### A 1C #### [facility] [address] [place] [address] Dr. Bridger Aggarwal Basophils/100 WBC (Bld) 0.4 % Normal 0.2-2.0 [facility] Comment on above: Performed By: #### A 1C #### [facility] [address] [place] [address] Dr. Bridger Aggarwal EO # 0.1 103/ul Normal 0.0-0.7 [facility] Comment on above: Performed By: #### A 1C #### [facility] [address] [place] [address] Dr. Bridger Aggarwal Eosinophils/100 WBC (Bld) 1.2 % Normal 0.9-7.0 [facility] Comment on above: Performed By: #### A 1C #### [facility] [address] [place] [address] Dr. Bridger Aggarwal Erythrocyte distribution width (RBC) [Ratio] 12.5 % Normal 11.0-15.0 [facility] Comment on above: Performed By: #### A 1C #### [facility] [address] [place] [address] Dr. Bridger Aggarwal Hematocrit (Bld) [Volume fraction] 45.9 % Normal 42.0-54.0 [facility] Comment on above: Performed By: #### A 1C #### [facility] [address] [place] [address] Dr. Bridger Aggarwal Hemoglobin (Bld) [Mass/Vol] 15.8 g/dL Normal 14.0-18.0 [facility] Comment on above: Performed By: #### A 1C #### [facility] [address] [place] [address] Dr. Bridger Aggarwal IG # 0.04 10e3/ul Critically high 0.00-0.03 [facility] Comment on above: Performed By: #### A 1C #### [facility] [address] [place] [address] Dr. Bridger Aggarwal IG % 0.5 % Normal 0.0-0.5 [facility] Comment on above: Performed By: #### A 1C #### [facility] [address] [place] [address] Dr. Bridger Aggarwal LYMPH # 1.7 103/ul Normal 1.2-3.8 [facility] Comment on above: Performed By: #### A 1C #### [facility] [address] [place] [address] Dr. Bridger Aggarwal Lymphocytes/100 WBC (Bld) 22.3 % Normal 20.5-60.0 [facility] Comment on above: Performed By: #### A 1C #### [facility] [address] [place] [address] Dr. Bridger Aggarwal MANUAL DIFF REQ NO Normal [facility] Comment on above: Performed By: #### A 1C #### [facility] [address] [place] [address] Dr. Bridger Aggarwal MCH (RBC) [Entitic mass] 34.3 pg Critically high 25.9-34.0 [facility] Comment on above: Performed By: #### A 1C #### [facility] [address] [place] [address] Dr. Bridger Aggarwal MCHC (RBC) [Mass/Vol] 34.4 g/dL Normal 29.9-35.2 [facility] Comment on above: Performed By: #### A 1C #### [facility] [address] [place] [address] Dr. Bridger Aggarwal MCV (RBC) [Entitic vol] 99.6 fL Critically high 80.0-94.0 [facility] Comment on above: Performed By: #### A 1C #### [facility] [address] [place] [address] Dr. Bridger Aggarwal MONO # 0.7 103/ul Normal 0.3-0.8 [facility] Comment on above: Performed By: #### A 1C #### [facility] [address] [place] [address] Dr. Bridger Aggarwal Monocytes/100 WBC (Bld) 8.6 % Normal 1.7-12.0 [facility] Comment on above: Performed By: #### A 1C #### [facility] [address] [place] [address] Dr. Bridger Aggarwal NEUT # 5.2 103/ul Normal 1.4-6.5 [facility] Comment on above: Performed By: #### A 1C #### [facility] [address] [place] [address] Dr. Bridger Aggarwal Neutrophils/100 WBC (Bld) 67.0 % Normal 43.0-75.0 [facility] Comment on above: Performed By: #### A 1C #### [facility] [address] [place] [address] Dr. Bridger Aggarwal Platelet mean volume (Bld) [Entitic vol] 9.4 fL Critically low 9.5-13.5 [facility] Comment on above: Performed By: #### A 1C #### [facility] [address] [address] [address] Bridger Aggarwal PLT 259 103/ul Normal 150-450 [facility] Comment on above: Performed By: #### A 1C #### [facility] [address] [address] [address] Bridger Aggarwal RBC 4.61 106/ul Critically low 4.70-6.10 [facility] Comment on above: Performed By: #### A 1C #### [facility] [address] [address] [address] Bridger Aggarwal WBC 7.8 103/ul Normal 4.0-11.0 [facility] Comment on above: Performed By: #### A 1C #### [facility] [address] [place] [address] Dr. Bridger Aggarwal FREE T3on 12-18-2021 FREE T3 2.71 pg/mlL Normal 2.18-3.98 [facility] Comment on above: Performed By: #### C MP, T4, FT3, TSH, LIPID #### [facility] [address] [address] [address] Bridger Aggarwal GLYCOHEMOGLOBIN A1Con 2021 ADA RECOMMENDATION SEE BELOW Normal [facility] Comment on above: Result Comment: ADA RECOMMENDED LIMIT 4.0 - 6.0 ADA THERAPEUTIC TARGET < 7.0 ACTION SUGGESTED > 7.0 Performed By: #### A 1C #### [facility] [address] [address] [address] Bridger Aggarwal Glucose [Mass/Vol] 197 mg/dL Normal [facility] Comment on above: Performed By: #### A 1C #### [facility] [address] [address] [address] Bridger Aggarwal HbA1c (Bld) [Mass fraction] 8.5 % Critically high 4.5-6.2 [facility] Comment on above: Performed By: #### A 1C #### [facility] [address] [place] [address] Dr. Bridger Aggarwal LIPID PROFILEon 12-18-2021 CHOL-HDL RATIO NORM SEE BELOW Normal [facility] Comment on above: Result Comment: 3.3 - 4.4 LOW RISK 4.4 - 7.1 AVERAGE RISK 7.1 - 11.0 MODERATE RISK >11.0 HIGH RISK Performed By: #### C MP, T4, FT3, TSH, LIPID #### [facility] [address] [address] [address] Bridger Aggarwal Cholesterol [Mass/Vol] 157 mg/dL Normal <=200 [facility] Comment on above: Performed By: #### C MP, T4, FT3, TSH, LIPID #### [facility] [address] [address] [address] Bridger Aggarwal Cholesterol in HDL [Mass/Vol] 46 mg/dL Normal 40-60 [facility] Comment on above: Performed By: #### C MP, T4, FT3, TSH, LIPID #### [facility] [address] [place] [address] Dr. Bridger Aggarwal Cholesterol in LDL [Mass/Vol] 85.8 mg/dL Normal [facility] Comment on above: Performed By: #### C MP, T4, FT3, TSH, LIPID #### [facility] [address] [address] [address] Bridger Aggarwal Cholesterol.total/C holesterol in HDL [Mass ratio] 3.4 {ratio} Normal [facility] Comment on above: Performed By: #### C MP, T4, FT3, TSH, LIPID #### [facility] [address] [place] [address] Dr. Bridger Aggarwal HDL NORMAL > or = 60 mg/dl - LO W CARDIOVASCULAR RISK <40 mg/dl - HIGH CARDIOVASCULAR RISK Normal [facility] Comment on above: Performed By: #### C MP, T4, FT3, TSH, LIPID #### [facility] [address] [place] [address] Dr. Bridger Aggarwal LDL CALC NORMAL SEE BELOW Normal [facility] Comment on above: Result Comment: <100 mg/dl OPTIMAL 100 - 129 mg/dl NEAR OR ABOVE OPTIMAL 130 - 159 mg/dl BORDERLINE HIGH 160 - 189 mg/dl HIGH >190 mg/dl VERY HIGH Performed By: #### C MP, T4, FT3, TSH, LIPID #### [facility] [address] [address] [address] Bridger Aggarwal Triglyceride [Mass/Vol] 126 mg/dL Normal <=150 [facility] Comment on above: Performed By: #### C MP, T4, FT3, TSH, LIPID #### [facility] [address] [address] [address] Bridger Aggarwal VLDL CALC 25.2 mg/dL Normal [facility] Comment on above: Performed By: #### C MP, T4, FT3, TSH, LIPID #### [facility] [address] [place] [address] Dr. Bridger Aggarwal OCC BLD IMMUNO SCREENon 12-06 OCCULT BLOOD Negative Normal NEGATIVE [facility] Comment on above: Performed By: #### O BSCRN #### [facility] [address] [place] [address] Dr. Bridger Aggarwal PROF 14(COMP METB)on 022 Albumin [Mass/Vol] 3.6 g/dL Normal 3.4-5.0 [facility] Comment on above: Performed By: #### C MP, T4, FT3, TSH, LIPID #### [facility] [address] [place] [address] Dr. Bridger Aggarwal Albumin/Globulin [Mass ratio] 0.9 {ratio} Normal [facility] Comment on above: Performed By: #### C MP, T4, FT3, TSH, LIPID #### [facility] [address] [place] [address] Dr. Bridger Aggarwal ALP [Catalytic activity/Vol] 84 U/L Normal 46-116 [facility] Comment on above: Performed By: #### C MP, T4, FT3, TSH, LIPID #### [facility] [address] [place] [address] Dr. Bridger Aggarwal ALT [Catalytic activity/Vol] 45 U/L Normal 16-63 [facility] Comment on above: Performed By: #### C MP, T4, FT3, TSH, LIPID #### [facility] [address] [place] [address] Dr. Bridger Aggarwal Anion gap [Moles/Vol] 12.1 mmol/L Normal [facility] Comment on above: Performed By: #### C MP, T4, FT3, TSH, LIPID #### [facility] [address] [place] [address] Dr. Bridger Aggarwal AST [Catalytic activity/Vol] 20 U/L Normal 15-37 [facility] Comment on above: Performed By: #### C MP, T4, FT3, TSH, LIPID #### [facility] [address] [place] [address] Dr. Bridger Aggarwal Bilirubin [Mass/Vol] 0.6 mg/dL Normal 0.2-1.0 [facility] Comment on above: Performed By: #### C MP, T4, FT3, TSH, LIPID #### [facility] [address] [place] [address] Dr. Bridger Aggarwal Calcium [Mass/Vol] 9.1 mg/dL Normal 8.5-10.1 [facility] Comment on above: Performed By: #### C MP, T4, FT3, TSH, LIPID #### [facility] [address] [place] [address] Dr. Bridger Aggarwal Chloride [Moles/Vol] 100 mmol/L Normal 98-107 [facility] Comment on above: Performed By: #### C MP, T4, FT3, TSH, LIPID #### [facility] [address] [place] [address] Dr. Bridger Aggarwal CO2 [Moles/Vol] 28.4 mmol/L Normal 21.0-32.0 [facility] Comment on above: Performed By: #### C MP, T4, FT3, TSH, LIPID #### [facility] [address] [place] [address] Dr. Bridger Aggarwal Creatinine [Mass/Vol] 0.99 mg/dL Normal 0.70-1.30 [facility] Comment on above: Performed By: #### C MP, T4, FT3, TSH, LIPID #### [facility] [address] [place] [address] Dr. Bridger Aggarwal EGFR-AF SWAZI >60 Normal >=60 [facility] Comment on above: Performed By: #### C MP, T4, FT3, TSH, LIPID #### [facility] [address] [place] [address] Dr. Bridger Aggarwal EGFR-NON AF SWAZI >60 Normal >=60 [facility] Comment on above: Performed By: #### C MP, T4, FT3, TSH, LIPID #### [facility] [address] [address] [address] Bridger Aggarwal Globulin (S) [Mass/Vol] 3.8 g/dL Normal [facility] Comment on above: Performed By: #### C MP, T4, FT3, TSH, LIPID #### [facility] [address] [place] [address] Dr. Bridger Aggarwal Glucose [Mass/Vol] 260 mg/dL Critically high 74-106 T [facility] Comment on above: Performed By: #### C MP, T4, FT3, TSH, LIPID #### [facility] [address] [place] [address] Dr. Bridger Aggarwal Potassium [Moles/Vol] 4.5 mmol/L Normal 3.5-5.1 [facility] Comment on above: Performed By: #### C MP, T4, FT3, TSH, LIPID #### [facility] [address] [place] [address] Dr. Bridger Aggarwal Protein [Mass/Vol] 7.4 g/dL Normal 6.4-8.[address] [facility] Comment on above: Performed By: #### C MP, T4, FT3, TSH, LIPID #### [facility] [address] [place] [address] Dr. Bridger Aggarwal Sodium [Moles/Vol] 136 mmol/L Normal 136-145 [facility] Comment on above: Performed By: #### C MP, T4, FT3, TSH, LIPID #### [facility] [address] [place] [address] Dr. Bridger Aggarwal Urea nitrogen [Mass/Vol] 17.0 mg/dL Normal 7.0-18.0 [facility] Comment on above: Performed By: #### C MP, T4, FT3, TSH, LIPID #### [facility] [address] [address] [address] Bridger Aggarwal Urea nitrogen/Creatinine [Mass ratio] 17.2 mg/mg Normal [facility] Comment on above: Performed By: #### C MP, T4, FT3, TSH, LIPID #### [facility] [address] [place] [address] Dr. Bridger Aggarwal T4on 12-18-2021 T4 [Mass/Vol] 4.80 ug/dL Normal 4.50-12.10 [facility] Comment on above: Performed By: #### C MP, T4, FT3, TSH, LIPID #### [facility] [address] [place] [address] Dr. Bridger Aggarwal TSHon 12-18-2021 TSH 1.496 uIU/mL Normal 0.358-3.740 [facility] Comment on above: Performed By: #### C MP, T4, FT3, TSH, LIPID #### [facility] [address] [place] [address] Dr. Bridger Aggarwal TSH RANGE SEE BELOW Normal [facility] Comment on above: Result Comment: <0.3 4 UIU/ml HYPERTHYROID 0.34-5.60 UIU/ml EUTHYROID >5.60 UIU/ml HYPOTHYROID Performed By: #### C MP, T4, FT3, TSH, LIPID #### [facility] [address] [place] [address] Dr. Bridger Aggarwal Encounters Encounter Date Encounter Type Care Provider Facility Start: 12-05-2023 End: 12-05-2023 ambulatory AB [facility] Start: 10-13-2023 End: 10-13[facility]: 10-06-2023 Evaluation and management of inpatient DESTINEE COSTA [facility] Start: 10-05-2023 End: 10-09-2023 Evaluation and management of inpatient ADARSH HALL [facility] Start: 08-10-2022 End: 08-10-2022 ambulatory [...] abnormal findings DR ADARSH HALL [facility] Start: 12-18-2021 End: 12-19-[address] ADARSH HALL Facility:[facility] Start: 12-18-2021 End: 12-19-2021 Encounter for general adult medical examination without abnormal findings DR ADARSH HALL Facility:[facility] Procedures Date Procedure Procedure Detail Performing Clinician Start: 12-18-[address] GREG HALL Comment on above: Performed By: #### [facility] #### [facility] [address] [place] [address] Dr. Bridger Aggarwal Payers Date Payer Category Payer Unknown [id number] .. [id number] 1975 Unknown [id number] 2..84 [id number] 1973 Unknown [id number] 2..84 [id number] 1973 Unknown [id number] 2.16.84 [id number] 1973 Unknown [id number] 2..84 [id number] 1973 Unknown [id number] 2.16.84 [id number] 1973 Unknown [id number] 2.16.84 [id number] 1973 Unknown [id number] 2.16.84 [id number] 1961 Private Health Insurance [id number] 1961 Unknown [id number] Clinical Notes 10-05-2023 to 12-05-2023 Note Date & Type Note Facility 12-05-2023 Note [facility] Cardiology Clinic Note Chief Complaint: Patient [...] disease- nonobstructive with sluggish coronary flow on [facility] 10/07/23 Hypertension Type 2 DM with [...] obesity, LARS, tobacco dependence intially presents to [facility] after sudden onset SOB. He woke [...] 37.66 kg/m??? P (more content not included)... [facility] 10-13-2023 Note Cardiovascular Medic [facility] SUBJECTIVE Chief Complaint Patient presents [...] disease- nonobstructive with sluggish coronary flow on [facility] 10/07/23 Hypertension Type 2 DM with [...] obesity, LARS, tobacco dependence intially presents to [facility] after sudden onset SOB. He woke [...] Heart failure (CMS/HCC) Coronary artery disease involving [place] coronary artery of [place] heart without angina pectoris Benign hypertensive heart [...] at bedtime., Disp: (more content not included)... [facility] 10-13-2023 Note Patient here for [facility] for new onset CHF. He underwent heart cath on 10/07/[address] Herrera. Was discharged with a LifeVest. He has completely stopped smoking and drinking alcohol. Denies chest pain, SOB, palpitations, and lightheadedness/syncope. Review of Systems All other systems reviewed and are negative. [facility] 10-09-2023 Note Patient discharged v ia private ride with . Patient educated on discharge and educated on heart failure education. All questions and concerns addressed at this time. [facility] 10-09-2023 Note 10/09/23 1403 CM Interventions CM Interventions Other (Comment) Follow up appointment for GI Clinic was scheduled for patient for tomorrow, however, per Epic chart, patient has already cancelled. Dr Costa notified [facility] 10-09-2023 Note Awaiting life vest a pproval and fitting. OTM will continue to follow. 1200: Life Vest approved. Awaiting RN for fitting. [facility] 10-09-2023 Note Hospital Medicine Discharge Summary Final Discharge Diagnosis: New onset heart failure with reduced EF, 20-25%, NYHA I, with global hypokinesis NICMP Coronary artery disease- nonobstructive with sluggish coronary flow on [facility] 10/07/23 Hypertension Type 2 DM with [...] obesity, LARS, tobacco dependence intially presents to [facility] after sudden onset SOB. He woke [...] use and was discharged home. Dear Dr. aRfael MD [place] is advised to follow up with you within 1-2 weeks. Follow-up with: Scheduled appointments: Future Appointments Date Time Provider Department Center 10/13/2023 2:40 PM Zack Montgomery NP [facility] Your medication [...] Medications These medications were sent to [facility] - [place], [place] - [address] [place] [address], [facility] [address] aspirin 81 mg chewable tablet atorvastatin 80 [...] (!) 129/100, pulse (more content not included)... [facility] 10-08-2023 Note railway traction line worker lalito valentin by Dakota, at [facility], on behalf of patient. Facesheet & cardiology progress note faxed to [facility] to initiate life ves referral. Awaiting approval / denial and next steps before patient can discharge. UPDATE: Lacing Operator reached out to Dakota who reports he is still waiting for insurance approval for life vest. This information was shared with physician, bedside nurse, and older adult social work specialist. Dakota reports if he is approved today, he will attempt to get patient fitted for his life vest today as well. OTM team continuing to follow. [facility] 10-08-2023 Note Hospital Medicine Discharge Summary Final Discharge Diagnosis: New onset heart failure with reduced EF, 20-25%, NYHA I, with global hypokinesis NICMP Coronary artery disease- nonobstructive with sluggish coronary flow on [facility] 10/07/23 Hypertension Type 2 DM with A1C 8% Dyslipidemia Alcohol abuse Tobacco dependence Circumferential esophageal thickening-Outpatient GI Fup for concern of EGD, has hx of reflux, Cont PPI therapy Bilateral groundglass opacities and hilar lymphadenopathy. Be infectious versus inflammatory. Flu PCR and COVID-negative. Admission Diagnosis: Heart failure (CMS/[facility]) [I50.9] Hospital course: Tera Roberto is a 48 y.o. male with a PMH significant for T2DM, HTN, obesity, LARS, tobacco dependence intially presents to [facility] after sudden onset SOB. He woke [...] Medications These medications were sent to [facility] - [place], [place] - [facility] [address], [facility] [address] aspirin 81 mg chewable tablet atorvastatin 80 [...] time of di (more content not included)... [facility] 10-08-2023 Note [facility] CARDIOLOGY PROGR [...] lock IV AND sodium chloride CV Testing: [facility] 10/07/23: FINAL IMPRESSIONS: Angiographically nonobstructive coronary [...] a beta-nabila, a (more content not included)... [facility] 10-08-2023 Note Hospital Medicine Daily Progress Note - 10/09/2023 7:16 AM; Room: [address] [place] [address] Admission: 10/05/2023 7:45 PM; Length of stay: 4 days THE HOSPITALIST TEAM PREFERS TO USE [employer] Sp[employer] CHAT FOR COMMUNICATION 7AM-7PM. IF I DO NOT RESPOND WITHIN 15 MINUTES, PLEASE PAGE ME/CALL THROUGH THE FREELANCE DATA ENTRY. FROM 7PM-7AM, PLEASE PAGE [phone](COVR) Code Status: Full Code Barriers to Discharge: [...] Active Inpatient Problems Principal Problem: Heart failure ([facility]) Assessment and Plan Acute hypoxemic [...] Academy of Nutrition and Dietetics and the [place] [employer] Society of Enteral and Parenteral Nutrition, meets [...] LDL 178 10/06/2023 No results found for: [id number] , IRON , TIBC , C3 , [...] beta-nabila, a RAA (more content not included)... [facility] 10-07-2023 Note Clinical Therapist [facility] Intervention Note Substance Intervention: Raise the [...] brief intervention. Assessment completed by: DELMA Morgan [facility] 10-07-2023 Note Cardiovascular Labor atory [...] internal jugular vein was obtained. A 6 Martin[place] 11 cm sheath was inserted without difficulty. [...] left radial artery was obtained. A 6 [place] glide sheath was inserted without difficulty. Bilateral [...] fraction, exertional shortness of breath, abnormal echocardiogram [facility] 10-07-2023 Note ---- Attestation signed [...] Value Ventricular Rate 88 Atrial Rate 88 NM Interval 162 QRS DURATION 84 QT Interval 404 QTC CALCULATION(BAZETT) 488 P [place] 50 R-[place] 0 T Wave [place] 61 Impression Sinus rhythm with occasional Premature ventricular complexes Left ventricular hypertrophy ( R in aVL ) Prolonged QT Abnormal ECG No previous ECGs available Confirmed by Daily MENDEZ, L.S. (2) on 10/06/2023 11:01:33 AM Lab Results Component Value Date TROPONINI 0.03 10/06/2023 Transthoracic echo (TTE) limited Result Date: 10/06/2023 1 1 [facility] Heart Station [address] [place], [place] [phone] (fax) Echocardiogram-[facility] Name: TERA ROBERTO Study Date: 10/06/2023 10:25 AM B/P: 153 mmHg/104 mmHg HR: 96 bpm Date of : 1975 Location: [facility] Height: 69 in. Age: 48 year(s) [...] No pericardial effusion. Procedure Staff Reading Group: [facility] Referring Physician: Keith Edwards Wood Drilling Machine Operator: Zina Altamirano [facility] Ordering Physician: DESTINEE COSTA No nuclear medicine results found for the past 12 months Relevant Imaging Results Transthoracic echo (TTE) limited 1 1 [facility] [address] [place] [address] [phone] (fax) Echocardiogram-[facility] Name: TERA ROBERTO Study Date: 10/06/2023 10:25 AM B/P: (more content not included)... [facility] 10-07-2023 Note Clinician attempted to provide AOD brief intervention. Physician at bedside with pt. Clinician will make another attempt [facility] 10-07-2023 Note Hospital Medicine Daily Progress Note - 10/07/2023 9:30 AM; Room: [address] [place] [address] Admission: 10/05/2023 7:45 PM; Length of stay: 2 days THE HOSPITALIST TEAM PREFERS TO USE [employer] Sp[employer] CHAT FOR COMMUNICATION 7AM-7PM. IF I DO NOT RESPOND WITHIN 15 MINUTES, PLEASE PAGE ME/CALL THROUGH THE FREELANCE DATA ENTRY. FROM 7PM-7AM, PLEASE PAGE [phone](COVR) Code Status: Full Code Barriers to Discharge: [...] Active Inpatient Problems Principal Problem: Heart failure ([facility]) Assessment and Plan Acute hypoxemic [...] Academy of Nutrition and Dietetics and the [place] Society of Enteral and Parenteral Nutrition, meets [...] LDL 178 10/06/2023 No results found for: [id number] , IRON , TIBC , C3 , C4 ,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
[2024-05-15 08:09] LABS: Basophils Percent Auto 0.7 % (0.2-2.0); Eosinophils Absolute Auto 0.1 10^3/uL (0.0-0.7); Eosinophils Percent Auto 2.2 % (0.9-7.0); Hematocrit 47.5 % (42.0-54.0); Hemoglobin 16.1 g/dL (14.0-18.0); Immature Granulocytes Abs Auto 0.03 10^3/uL (0.00-0.03); Immature Granulocytes Pct Auto 0.5 % (0.0-0.5); Lymphocytes Absolute Auto 1.6 10^3/uL (1.2-3.8); Lymphocytes Percent Auto 28.5 % (20.5-60.0); Mean Corpuscular HGB Conc 33.9 g/dL (29.9-35.2); Mean Corpuscular Hemoglobin 34.4 pg (25.9-34.0); Mean Corpuscular Volume 101.5 fL (80.0-94.0); Mean Platelet Volume 9.6 fL (9.5-13.5); Monocytes Absolute Auto 0.4 10^3/uL (0.3-0.8); Monocytes Percent Auto 7.7 % (1.7-12.0); Neutrophils Absolute Auto 3.3 10^3/uL (1.4-6.5); Neutrophils Percent Auto 60.4 % (43.0-75.0); Platelet Count 206 10^3/uL (150-450); Red Blood Count 4.68 10^6/uL (4.70-6.10); Red Cell Distribution Width 11.6 % (11.0-15.0); White Blood Count 5.5 10^3/uL (4.0-11.0)
[2024-05-15 09:10] LABS: Anion Gap 14.8; Carbon Dioxide 26.3 mmol/L (21.0-32.0); Chloride 99 mmol/L (98-107); Glucose 224 mg/dL (74-106); Potassium 4.1 mmol/L (3.5-5.1); Sodium 136 mmol/L (136-145)
[2024-05-15 09:11] LABS: Alanine Aminotransferase 60 U/L (16-63); Albumin Globulin Ratio 0.9; Albumin Level 3.6 g/dL (3.4-5.0); Alkaline Phosphatase 147 U/L (46-116); Aspartate Amino Transferase 38 U/L (15-37); Bilirubin Total 0.5 mg/dL (0.2-1.0); Calcium 9.4 mg/dL (8.5-10.1); Estimated GFR (African America >60 (>=60 mL/min/1.73m^2); Estimated GFR (Non-African Ame >60 (>=60 mL/min/1.73m^2); Free T3 2.77 pg/mL (2.18-3.98); Globulin 3.8 g/dL; Thyroid Stimulating Hormone 3.598 uIU/mL (0.358-3.740); Total Protein 7.4 g/dL (6.4-8.2); Troponin I High Sensitivity 6.6 pg/mL (4.0-76.1)
== END 2024-05-15 07:19 | disposition home or self-care (01) ==
LOC: LAB 07:20
PROVIDERS: PCP Family Medicine; Visit Provider Family Medicine
DX: G47.30 Sleep apnea, unspecified (principal); I10 Essential (primary) hypertension; E11.65 Type 2 diabetes mellitus with hyperglycemia; E78.00 Pure hypercholesterolemia, unspecified; F41.8 Other specified anxiety disorders
CPT/HCPCS: 36415; 80053; 83880; 84436; 84443; 84481; 84484; 85025

== ENCOUNTER 2024-09-17 05:55 | Observation (INO) | payer OTHER, SELFPAY ==
[2024-09-17] VITALS (15 sets, daily range): BP systolic 129–146; BP diastolic 68–93; PULSE 87–113; TEMP 36.4–37; O2SAT 93–99; BMI 34.7
--- OUTSIDE RECORDS SUMMARY | 2024-09-17 06:17 | XMS_ITS | CCD ---
Author Organization [facility] Care Team Providers Care Salvage Worker Name Role Phone RAFAEL, DR ALTAMIRANO Admitting [...] Unavailable HOY, DR ALTAMIRANO Primary Care Unavailable KATMARCIAL BATES Admitting Unavailable KATMARCIAL BATES Attending Unavailable ZIEBER, DR JACOB Gonsalves Consulting Unavailable MARCIAL DENSON [...] disease (2 sources) Atherosclerotic heart disease of [place] coronary artery without angina pectoris; Translations: [Atherosclerotic heart disease of [place] coronary artery without angina pectoris] Onset: 10-13-2023 [...] Range Facility Office Visiton 12-05-2023 Follow-up visit [id number] Tera Roberto 1975 M Date Provider Department Center 12/05/2023 YAKELIN MICHELLE TATE Abreu Family History Problem Relation Age of Onset Heart attack Maternal Grandfather Family Status - Relation Status Age at Maternal Grandfather Level of Service:77542 AL OFFICE/OUTPATIENT ESTABLISHED MOD MDM [address] [facility] 36on 12-01-2023 36 Patient informed. Normal [facility] 36on 11-29-2023 36 Please let him know his EF improved to 55%. He no longer needs to wear the LifeVest. Follow-up as scheduled. Thanks! Normal [facility] Telephoneon 11-29-2023 Telephone [phone] Tera Roberto 1975 M Date Provider Department Center 11/29/2023 ZACK OLSON Family History Problem Relation Age of Onset Heart attack Maternal Grandfather Family Status - Relation Status Age at Maternal Grandfather Normal [facility] 36on 11-02-2023 36 2nd attempt: LMOM Normal [facility] Follow-Upon 10-13-2023 Follow-Up [id number] Tera Roberto 1975 [facility] Provider Department Center 10/13/2023 166-ZACK MONTGOMERY TATE [facility] Family History Problem Relation Age of Onset Heart attack Maternal Grandfather Family Status - Relation Status Age at Maternal Grandfather Level of Service:46533 AL OFFICE/OUTPATIENT ESTABLISHED MOD MDM 30 MIN Reason for Visit and Comments: Hospital Follow-up [832] Congestive Heart Failure [127] Hypertension [559334] [facility] 10-11-2023 36 Called patient and left a message to call me to schedule a pulmonary hospital follow up with either Dr. Valenzuela or Dr. Diamond. [facility] 10-10-2023 36 Discharge date: Call date: [...] was very happy with his experience at [facility] and he wanted to thank everyone for saving his life. [facility] Documentationon 10-10-2023 Documentation [id number] CamilleTera 1975 M Date Provider Department Center 10/10/202375507-YBDDWKYROSI [facility] No family history on file Reason for Visit and Comments: HF inpatient satisfaction survey sent. [Other] [facility] Telephoneon 10-10-2023 Telephone [id number] CamilleTera 1975 M Date Provider Department Center 10/10/202309839-CCPPNUWROSI [facility] No family history on file [facility] 3010-09-2023 30 The patient is Moderately [...] and behaviors that affect risk of falls [place] fall precautions as indicated by assessment Problem: [...] the next 3 months Outcome: Progressing Normal [facility] BASIC METABOLIC PANELon 03-0 Anion gap [Moles/Vol] 12 mmol/L Normal 7-20 [facility] Comment on above: Performed By: #### L [id number] ####[facility] (BEAKER)[address] [place] [address] Calcium [Mass/Vol] 8.9 mg/dL Normal 8.6-10.3 [facility] Comment on above: Performed By: #### L [id number] ####[facility] (BEAKER)[address] [place] [address] Chloride [Moles/Vol] 104 mmol/L Normal 98-107 [facility] Comment on above: Performed By: #### L [id number] ####[facility] (BEAKER)[address] [place] [address] CO2 [Moles/Vol] 25 mmol/L Normal 21-31 [facility] Comment on above: Performed By: #### L [id number] ####[facility] (BEAKER)[address] [place] [address] Creatinine [Mass/Vol] 0.89 mg/dL Normal 0.70-1.30 [facility] Comment on above: Performed By: #### L [id number] ####[facility] ([facility])[address] [place] [address] GLOMERULAR FILTRATION RATE ML/MIN/1.73 SQ M.PREDICTED 104.4 mL/min/1.73m*2 Normal >60.0 [facility] Comment on above: Result Comment: [facility]???s estimated glomerular filtration rate (eGFR) will [...] of individuals. Performed By: #### L [id number] ####[facility] ([facility])[address] [place] [address] Glucose [Mass/Vol] 119 mg/dL High 70-100 [facility] Comment on above: Performed By: #### L [id number] ####[facility] ([facility])[address] [place] [address] Potassium [Moles/Vol] 4.1 mmol/L Normal 3.5-5.1 [facility] Comment on above: Performed By: #### L [id number] ####[facility] ([facility])[address] [place] [address] Sodium [Moles/Vol] 137 mmol/L Normal 136-145 [facility] Comment on above: Performed By: #### L [id number] ####[facility] ([facility])[address] [place] [address] Urea nitrogen [Mass/Vol] 29 mg/dL High 7-25 [facility] Comment on above: Performed By: #### L [id number] ####[facility] ([facility])[address] [place] [address] UREA NITROGEN/CREATININE (MASS RATIO) IN SER/PLAS 32.[address] [facility] Comment on above: Performed By: #### L [id number] ####[facility] ([facility])[address] [place] [address] CBC WITH AUTO DIFFERENTIALon 10-09-2023 Basophils (Bld) [#/Vol] 0.04 10*3/uL Normal 0.00-0.20 [facility] Comment on above: Performed By: #### L [id number] ####[facility] ([facility])[address] [place] [address] Basophils/100 WBC (Bld) 0.7 % Normal 0.0-1.0 [facility] Comment on above: Performed By: #### L [id number] ####[facility] ([facility])[address] [place] [address] Eosinophils (Bld) [#/Vol] 0.12 10*3/uL Normal 0.00-0.50 [facility] Comment on above: Performed By: #### L [id number] ####[facility] ([facility])[address] [place] [address] Eosinophils/100 WBC (Bld) 2.1 % Normal 0.0-6.0 [facility] Comment on above: Performed By: #### L [id number] ####[facility] ([facility])[address] [place] [address] Erythrocyte distribution width (RBC) [Ratio] 12.0 % Normal 11.5-15.0 [facility] Comment on above: Performed By: #### L [id number] ####[facility] ([facility])[address] [place] [address] ERYTHROCYTE MEAN CORPUSCULAR HEMOGLOBIN CONCENTRATION (G/DL) BY AUTOMATED 34.2 g/dL Normal 32.0-35.0 [facility] Comment on above: Performed By: #### L [id number] ####[facility] (BEAKER)[address] [place] [address] Hematocrit (Bld) [Volume fraction] 47.7 % Normal 39.0-55.0 [facility] Comment on above: Performed By: #### L [id number] ####[facility] (BEAKER)[address] [place] [address] Hemoglobin (Bld) [Mass/Vol] 16.3 g/dL Normal 13.0-17.0 [facility] Comment on above: Performed By: #### L [id number] ####[facility] (BEAKER)[address] [place] [address] Immature granulocytes (Bld) [#/Vol] 0.03 10*3/uL Normal 0.00-0.20 [facility] Comment on above: Performed By: #### L [id number] ####[facility] (BEAKER)[address] [place] [address] Immature granulocytes/100 WBC (Bld) 0.5 % Normal 0.0-1.0 [facility] Comment on above: Performed By: #### L [id number] ####[facility] (BEAKER)[address] [place] [address] Lymphocytes (Bld) [#/Vol] 1.51 10*3/uL Normal 1.20-4.00 [facility] Comment on above: Performed By: #### L [id number] ####[facility] (BEAKER)[address] [place] [address] Lymphocytes/100 WBC (Bld) 26.2 % Normal 20.0-45.0 [facility] Comment on above: Performed By: #### L [id number] ####[facility] (BEAKER)[address] [place] [address] MCH (RBC) [Entitic mass] 35.0 pg High 27.0-33.0 [facility] Comment on above: Performed By: #### L [id number] ####[facility] (BEAKER)[address] [place] [address] MCV (RBC) [Entitic vol] 102.4 fL High 82.0-98.0 [facility] Comment on above: Performed By: #### L [id number] ####[facility] (BEAKER)[address] [place] [address] Monocytes (Bld) [#/Vol] 0.80 10*3/uL Normal 0.10-1.00 [facility] Comment on above: Performed By: #### L [id number] ####[facility] (AKER)[address] [place] [address] Monocytes/100 WBC (Bld) 13.9 % High 5.0-12.0 [facility] Comment on above: Performed By: #### L [id number] ####[facility] (AKER)[address] [place] [address] Neutrophils (Bld) [#/Vol] 3.26 10*3/uL Normal 1.60-7.60 [facility] Comment on above: Performed By: #### L [id number] ####[facility] (AKER)[address] [place] [address] Neutrophils/100 WBC (Bld) 56.6 % Normal 40.0-72.0 [facility] Comment on above: Performed By: #### L [id number] ####[facility] (BEAKER)[address] [place] [address] NRBC (PER 100 WBCS) BY AUTOMATED COUNT 0.0 % Normal 0 [facility] Comment on above: Performed By: #### L [id number] ####[facility] (BEAKER)[address] [place] [address] PLATELETS (10*3/UL) IN BLOOD AUTOMATED COUNT 181 10*3/uL Normal 150-400 [facility] Comment on above: Performed By: #### L [id number] ####[facility] (BEAKER)[address] [place] [address] RBC (Bld) [#/Vol] 4.66 10*6/uL Normal 4.20-5.70 [facility] Comment on above: Performed By: #### L [id number] ####[facility] ([facility])[address] [place] [address] WBC (Bld) [#/Vol] 5.76 10*3/uL Normal 4.00-10.60 [facility] Comment on above: Performed By: #### L [id number] ####[facility] ([facility])[address] [place] [address] MAGNESIUMon 10-09-2023 Magnesium [Mass/Vol] 2.1 mg/dL Normal 1.9-2.7 [facility] Comment on above: Performed By: #### L [id number] #### [facility] ([facility]) [address] [place] [address] POCT GLUCOSE METER UNSOLICIT ED RESULTSon 10-09-2023 Glucose [Mass/Vol] 160 mg/dL High 70-105 [facility] Comment on above: Order Comment: Waive d Testing in the ED is performed under the ED CLIA certificate #[id number]. Result Comment: [email or web address] Performed By: #### L [id number] ####[facility] ([facility])[address] [place] [address] Glucose [Mass/Vol] 148 mg/dL High 70-105 [facility] Comment on above: Order Comment: Waive d Testing in the ED is performed under the ED CLIA certificate #[id number]. Result Comment: [email or web address] Performed By: #### L [id number] ####[facility] ([facility])[address] [place] [address] Glucose [Mass/Vol] 146 mg/dL High 70-105 [facility] Comment on above: Order Comment: Waive d Testing in the ED is performed under the ED CLIA certificate #[id number]. Result Comment: [email or web address] Performed By: #### L [id number] ####[facility] ([facility])[address] [place] [address] 30on 10-08-2023 30 The patient is Moderately [...] and behaviors that affect risk of falls [place] fall precautions as indicated by assessment Educate [...] and prevent overall improvement and discharge Normal [facility] 30 The patient is Moderately Stable [...] and behaviors that affect risk of falls [place] fall precautions as indicated by assessment Problem: [...] the next 3 months Outcome: Progressing Normal [facility] 30 The patient is Moderately Stable [...] and behaviors that affect risk of falls [place] fall precautions as indicated by assessment Educate [...] conditions affect the heart Outcome: Progressing Normal [facility] BASIC METABOLIC PANELon 03-0 Anion gap [Moles/Vol] 15 mmol/L Normal 7-20 [facility] Comment on above: Performed By: #### L [id number] #### [facility] (BEAKER) [address] [place] [address] Calcium [Mass/Vol] 9.0 mg/dL Normal 8.6-10.3 [facility] Comment on above: Performed By: #### L [id number] #### [facility] (BEAKER) [address] [place] [address] Chloride [Moles/Vol] 101 mmol/L Normal 98-107 [facility] Comment on above: Performed By: #### L [id number] #### [facility] (BEAKER) [address] [place] [address] CO2 [Moles/Vol] 25 mmol/L Normal 21-31 [facility] Comment on above: Performed By: #### L [id number] #### [facility] (BEAKER) [address] [place] [address] Creatinine [Mass/Vol] 1.01 mg/dL Normal 0.70-1.30 [facility] Comment on above: Performed By: #### L [id number] #### [facility] [address] [place] [address] GLOMERULAR FILTRATION RATE ML/MIN/1.73 SQ M.PREDICTED 90.6 mL/min/1.73m*2 Normal >60.0 [facility] Comment on above: Result Comment: [facility]???s estimated glomerular filtration rate (eGFR) will [...] individuals. Performed By: #### L [id number] #### [facility] ([facility]) [address] [place] [address] Glucose [Mass/Vol] 160 mg/dL High 70-100 [facility] Comment on above: Performed By: #### L [id number] #### [facility] ([facility]) [address] [place] [address] Potassium [Moles/Vol] 4.1 mmol/L Normal 3.5-5.1 [facility] Comment on above: Performed By: #### L [id number] #### [facility] ([facility]) [address] [place] [address] Sodium [Moles/Vol] 137 mmol/L Normal 136-145 [facility] Comment on above: Performed By: #### L [id number] #### [facility] ([facility]) [address] [place] [address] Urea nitrogen [Mass/Vol] 34 mg/dL High 7-25 [facility] Comment on above: Performed By: #### L [id number] #### [facility] ([facility]) [address] [place] [address] UREA NITROGEN/CREATININE (MASS RATIO) IN SER/PLAS 33.[address] [facility] Comment on above: Performed By: #### L [id number] #### [facility] ([facility]) [address] [place] [address] CBC WITH AUTO DIFFERENTIALon 10-08-2023 Basophils (Bld) [#/Vol] 0.06 10*3/uL Normal 0.00-0.20 [facility] Comment on above: Performed By: #### L [id number] #### [facility] ([facility]) [address] [place] [address] Basophils/100 WBC (Bld) 1.0 % Normal 0.0-1.0 [facility] Comment on above: Performed By: #### L [id number] #### [facility] ([facility]) [address] [place] [address] Eosinophils (Bld) [#/Vol] 0.12 10*3/uL Normal 0.00-0.50 [facility] Comment on above: Performed By: #### L [id number] #### [facility] (BEAKER) [address] [place] [address] Eosinophils/100 WBC (Bld) 2.0 % Normal 0.0-6.0 [facility] Comment on above: Performed By: #### L [id number] #### [facility] ([facility] [address] [place] [address] Erythrocyte distribution width (RBC) [Ratio] 12.2 % Normal 11.5-15.0 [facility] Comment on above: Performed By: #### L [id number] #### [facility] ([facility] [address] [place] [address] ERYTHROCYTE MEAN CORPUSCULAR HEMOGLOBIN CONCENTRATION (G/DL) BY AUTOMATED 33.5 g/dL Normal 32.0-35.0 [facility] Comment on above: Performed By: #### L [id number] #### [facility] ([facility] [address] [place] [address] Hematocrit (Bld) [Volume fraction] 48.0 % Normal 39.0-55.0 [facility] Comment on above: Performed By: #### L [id number] #### [facility] (BEAKER) [address] [place] [address] Hemoglobin (Bld) [Mass/Vol] 16.1 g/dL Normal 13.0-17.0 [facility] Comment on above: Performed By: #### L [id number] #### [facility] (BEAKER) [address] [place] [address] Immature granulocytes (Bld) [#/Vol] 0.02 10*3/uL Normal 0.00-0.20 [facility] Comment on above: Performed By: #### L [id number] #### [facility] (BEAKER) [address] [place] [address] Immature granulocytes/100 WBC (Bld) 0.3 % Normal 0.0-1.0 [facility] Comment on above: Performed By: #### L [id number] #### [facility] ([facility]) [address] [place] [address] Lymphocytes (Bld) [#/Vol] 1.47 10*3/uL Normal 1.20-4.00 [facility] Comment on above: Performed By: #### L [id number] #### [facility] ([facility]) [address] [facility] [place] [address] Lymphocytes/100 WBC (Bld) 24.6 % Normal 20.0-45.0 [facility] Comment on above: Performed By: #### L [id number] #### [facility] ([facility]) [address] [facility] [address] MCH (RBC) [Entitic mass] 34.8 pg High 27.0-33.0 [facility] Comment on above: Performed By: #### L [id number] #### [facility] ([facility]) [address] [place] [address] MCV (RBC) [Entitic vol] 103.9 fL High 82.0-98.0 [facility] Comment on above: Performed By: #### L [id number] #### [facility] ([facility]) [address] [facility] [address] Monocytes (Bld) [#/Vol] 0.85 10*3/uL Normal 0.10-1.00 [facility] Comment on above: Performed By: #### L [id number] #### [facility] ([facility]) [address] [place] [address] Monocytes/100 WBC (Bld) 14.2 % High 5.0-12.0 [facility] Comment on above: Performed By: #### L [id number] #### [facility] ([facility]) [address] [place] [address] Neutrophils (Bld) [#/Vol] 3.46 10*3/uL Normal 1.60-7.60 [facility] Comment on above: Performed By: #### L [id number] #### [facility] ([facility]) [address] [place] [address] Neutrophils/100 WBC (Bld) 57.9 % Normal 40.0-72.0 [facility] Comment on above: Performed By: #### L [id number] #### [facility] ([facility]) [address] [place] [address] NRBC (PER 100 WBCS) BY AUTOMATED COUNT 0.0 % Normal 0 [facility] Comment on above: Performed By: #### L [id number] #### [facility] ([facility]) [address] [place] [address] PLATELETS (10*3/UL) IN BLOOD AUTOMATED COUNT 196 10*3/uL Normal 150-400 [facility] Comment on above: Performed By: #### L [id number] #### [facility] ([facility]) [address] [place] [address] RBC (Bld) [#/Vol] 4.62 10*6/uL Normal 4.20-5.70 [facility] Comment on above: Performed By: #### L [id number] #### [facility] ([facility]) [address] [place] [address] WBC (Bld) [#/Vol] 5.98 10*3/uL Normal 4.00-10.60 [facility] Comment on above: Performed By: #### L [id number] #### [facility] ([facility]) [address] [place] [address] POCT GLUCOSE METER UNSOLICIT ED RESULTSon 10-08-2023 Glucose [Mass/Vol] 171 mg/dL High 70-105 [facility] Comment on above: Order Comment: Waive d Testing in the ED is performed under the ED CLIA certificate #[id number]. Result Comment: [email or web address] Performed By: #### L [id number] ####[facility] ([facility])[address] [place] [address] Glucose [Mass/Vol] 128 mg/dL High 70-105 [facility] Comment on above: Order Comment: Waive d Testing in the ED is performed under the ED CLIA certificate #[id number]. Result Comment: [email or web address] Performed By: #### L [id number] ####[facility] (BEAKER)[address] [facility] [address] Glucose [Mass/Vol] 170 mg/dL High 70-105 [facility] Comment on above: Order Comment: Waive d Testing in the ED is performed under the ED CLIA certificate #[id number]. Result Comment: [email or web address] Performed By: #### L [id number] ####[facility] (BEAKER)[address] [facility] [address] Glucose [Mass/Vol] 174 mg/dL High 70-105 [facility] Comment on above: Order Comment: Waive d Testing in the ED is performed under the ED CLIA certificate #[id number]. Result Comment: [email or web address] Performed By: #### L [id number] ####[facility] (BEAKER)[address] [facility] [address] 30on 10-07-2023 30 The patient is Moderately [...] and behaviors that affect risk of falls [place] fall precautions as indicated by assessment Educate [...] the next 3 months Outcome: Progressing Normal [facility] Og 10-07-2023 SAPNAS -- Attestation signed by Yakelin Herrera MD at 10/07/2023 11:02 AM Yakelin Herrera MD, MPH, [facility], [facility], [facility] Interventional Cardiology Pager Email: [email or web address] Patient: Tera Roberto Procedure Information Date/Time: 10/07/23 1700 Procedures: Coronary angiography Right heart cath Location: [facility] [employer] [facility] [address] / [facility] (Cath) Providers: Yakelin Herrera MD Clinical information reviewed: Allergies Physical Exam Airway Mallampati: III TM distance: >3 FB Neck ROM: full Cardiovascular Rhythm: regular Rate: normal Dental Pulmonary Abdominal Anesthesia Plan ASA 3 Anesthetic plan and risks discussed with patient. Use of blood products discussed with patient who. Plan discussed with attending. Additional Equipment Requests Normal [facility] BASIC METABOLIC PANELon 03-0 Anion gap [Moles/Vol] 14 mmol/L Normal 7-20 [facility] Comment on above: Performed By: #### L [id number] #### [facility] (BEAKER) [address] [place] [address] Calcium [Mass/Vol] 9.5 mg/dL Normal 8.6-10.3 [facility] Comment on above: Performed By: #### L [id number] #### [facility] (BEAKER) [address] [place] [address] Chloride [Moles/Vol] 101 mmol/L Normal 98-107 [facility] Comment on above: Performed By: #### L [id number] #### [facility] (BEAKER) [address] [place] [address] CO2 [Moles/Vol] 26 mmol/L Normal 21-31 [facility] Comment on above: Performed By: #### L [id number] #### [facility] ([facility]) [address] [place] [address] Creatinine [Mass/Vol] 0.96 mg/dL Normal 0.70-1.30 [facility] Comment on above: Performed By: #### L [id number] #### [facility] ([facility]) [address] [place] [address] GLOMERULAR FILTRATION RATE ML/MIN/1.73 SQ M.PREDICTED 96.3 mL/min/1.73m*2 Normal >60.0 [facility] Comment on above: Result Comment: [facility]???s estimated glomerular filtration rate (eGFR) will [...] individuals. Performed By: #### L [id number] #### [facility] ([facility]) [address] [place] [address] Glucose [Mass/Vol] 208 mg/dL High 70-100 [facility] Comment on above: Performed By: #### L [id number] #### [facility] ([facility]) [address] [place] [address] Potassium [Moles/Vol] 3.9 mmol/L Normal 3.5-5.1 [facility] Comment on above: Performed By: #### L [id number] #### [facility] ([facility]) [address] [place] [address] Sodium [Moles/Vol] 137 mmol/L Normal 136-145 [facility] Comment on above: Performed By: #### L [id number] #### [facility] ([facility]) [address] [place] [address] Urea nitrogen [Mass/Vol] 30 mg/dL High 7-25 [facility] Comment on above: Performed By: #### L [id number] #### [facility] ([facility]) [address] [place] [address] UREA NITROGEN/CREATININE (MASS RATIO) IN SER/PLAS 31.[address] [facility] Comment on above: Performed By: #### L [id number] #### [facility] ([facility]) [address] [place] [address] CBC WITH AUTO DIFFERENTIALon 10-07-2023 Basophils (Bld) [#/Vol] 0.03 10*3/uL Normal 0.00-0.20 [facility] Comment on above: Performed By: #### L [id number] #### [facility] ([facility]) [address] [place] [address] Basophils/100 WBC (Bld) 0.6 % Normal 0.0-1.0 [facility] Comment on above: Performed By: #### L [id number] #### [facility] ([facility]) [address] [place] [address] Eosinophils (Bld) [#/Vol] 0.11 10*3/uL Normal 0.00-0.50 [facility] Comment on above: Performed By: #### L [id number] #### [facility] ([facility]) [address] [place] [address] Eosinophils/100 WBC (Bld) 2.0 % Normal 0.0-6.0 [facility] Comment on above: Performed By: #### L [id number] #### [facility] ([facility]) [address] [place] [address] Erythrocyte distribution width (RBC) [Ratio] 12.2 % Normal 11.5-15.0 [facility] Comment on above: Performed By: #### L [id number] #### [facility] ([facility]) [address] [place] [address] ERYTHROCYTE MEAN CORPUSCULAR HEMOGLOBIN CONCENTRATION (G/DL) BY AUTOMATED 34.3 g/dL Normal 32.0-35.0 [facility] Comment on above: Performed By: #### L [id number] #### [facility] ([facility]) [address] [place] [address] Hematocrit (Bld) [Volume fraction] 50.5 % Normal 39.0-55.0 [facility] Comment on above: Performed By: #### L [id number] #### [facility] ([facility]) [address] [place] [address] Hemoglobin (Bld) [Mass/Vol] 17.3 g/dL High 13.0-17.0 [facility] Comment on above: Performed By: #### L [id number] #### [facility] ([facility]) [address] [place] [address] Immature granulocytes (Bld) [#/Vol] 0.02 10*3/uL Normal 0.00-0.20 [facility] Comment on above: Performed By: #### L [id number] #### [facility] ([facility]) [address] [place] [address] Immature granulocytes/100 WBC (Bld) 0.4 % Normal 0.0-1.0 [facility] Comment on above: Performed By: #### L [id number] #### [facility] ([facility]) [address] [place] [address] Lymphocytes (Bld) [#/Vol] 1.32 10*3/uL Normal 1.20-4.00 [facility] Comment on above: Performed By: #### L [id number] #### [facility] ([facility]) [address] [place] [address] Lymphocytes/100 WBC (Bld) 24.3 % Normal 20.0-45.0 [facility] Comment on above: Performed By: #### L [id number] #### [facility] ([facility]) [address] [place] [address] MCH (RBC) [Entitic mass] 34.9 pg High 27.0-33.0 [facility] Comment on above: Performed By: #### L [id number] #### [facility] ([facility]) [address] [place] [address] MCV (RBC) [Entitic vol] 102.0 fL High 82.0-98.0 [facility] Comment on above: Performed By: #### L [id number] #### [facility] ([facility]) [address] [place] [address] Monocytes (Bld) [#/Vol] 0.68 10*3/uL Normal 0.10-1.00 [facility] Comment on above: Performed By: #### L [id number] #### [facility] ([facility]) [address] [place] [address] Monocytes/100 WBC (Bld) 12.5 % High 5.0-12.0 [facility] Comment on above: Performed By: #### L [id number] #### [facility] ([facility]) [address] [place] [address] Neutrophils (Bld) [#/Vol] 3.27 10*3/uL Normal 1.60-7.60 [facility] Comment on above: Performed By: #### L [id number] #### [facility] ([facility]) [address] [place] [address] Neutrophils/100 WBC (Bld) 60.2 % Normal 40.0-72.0 [facility] Comment on above: Performed By: #### L [id number] #### [facility] ([facility]) [address] [place] [address] NRBC (PER 100 WBCS) BY AUTOMATED COUNT 0.0 % Normal 0 [facility] Comment on above: Performed By: #### L [id number] #### [facility] ([facility]) [address] [place] [address] PLATELETS (10*3/UL) IN BLOOD AUTOMATED COUNT 216 10*3/uL Normal 150-400 [facility] Comment on above: Performed By: #### L [id number] #### [facility] [address] [place] [address] RBC (Bld) [#/Vol] 4.95 10*6/uL Normal 4.20-5.70 [facility] Comment on above: Performed By: #### L [id number] #### [facility] ([facility]) [address] [place] [address] WBC (Bld) [#/Vol] 5.43 10*3/uL Normal 4.00-10.60 [facility] Comment on above: Performed By: #### L [id number] #### [facility] ([facility]) [address] [place] [address] CONSULTon 10-07-2023 CONSULT -- Attestation signed by [...] bilateral hilar lymphadenopathy. Patient was transferred to [facility] for further evaluation, echocardiogram showed EF to 20 to 25%, he was evaluated by cardiology team, he was started on Lasix 20 mg IV twice daily, along with beta-blockers and GENOEVVA inhibitor's. He was planned for left heart [...] No Food Insecurity (more content not included)... [facility] HPon 10-07-2023 HP -- Attestation signed by Yakelin Herrera MD at 10/07/2023 11:02 AM Yakelin Herrera MD, MPH, [facility], [facility], [facility] Interventional Cardiology Pager Email: [email or web address] H&P reviewed. Patient with multiple coronary [...] were addressed and answered. Florina Prasad MD Photo Graphics Librarian - [id number] [facility] Normal [facility] POCT GLUCOSE METER UNSOLICIT ED RESULTSon 10-07-2023 Glucose [Mass/Vol] 173 mg/dL High 70-105 [facility] Comment on above: Order Comment: Waive d Testing in the ED is performed under the ED CLIA certificate #[id number]. Result Comment: [email or web address] Performed By: #### L [id number] #### [facility] ([employer]) [address] [place] [address] Glucose [Mass/Vol] 169 mg/dL High 70-105 [facility] Comment on above: Order Comment: Waive d Testing in the ED is performed under the ED CLIA certificate #[id number]. Result Comment: [email or web address] Performed By: #### L [id number] ####[facility] ([employer])[address] [place] [address] Glucose [Mass/Vol] 242 mg/dL High 70-105 [facility] Comment on above: Order Comment: Waive d Testing in the ED is performed under the ED CLIA certificate #[id number]. Result Comment: [email or web address] Performed By: #### L [id number] #### [facility] ([employer]) [address] [place] [address] 30on 10-06-2023 30 The patient is Moderately [...] and behaviors that affect risk of falls [place] fall precautions as indicated by assessment Educate [...] and prevent overall improvement and discharge Normal [facility] 30 The patient is Moderately Stable - Low risk of patient condition declining or worsening The patient's goals for the shift include rest The clinical goals for the shift include comfort/vss Normal [facility] 30 The patient is Moderately Stable [...] and maintained or improved Outcome: Progressing Normal [facility] B-TYPE NATRIURETIC PEPTIDEon 10-06-2023 Natriuretic peptide B (Bld) [Mass/Vol] 752 pg/mL High 0-100 [facility] Comment on above: Performed By: #### L [id number] #### [facility] ([facility]) [address] [place] [address] Natriuretic peptide B (Bld) [Mass/Vol] 711 pg/mL High 0-100 [facility] Comment on above: Performed By: #### L [id number] #### [facility] ([facility] [address] [place] [address] BASIC METABOLIC PANELon 09-09 Anion gap [Moles/Vol] 16 mmol/L Normal 7-20 [facility] Comment on above: Performed By: #### L [id number] ####[facility] ([facility] [place] [address] Calcium [Mass/Vol] 9.7 mg/dL Normal 8.6-10.3 [facility] Comment on above: Performed By: #### L [id number] ####[facility] ([facility])[address] [place] [address] Chloride [Moles/Vol] 99 mmol/L Normal 98-107 [facility] Comment on above: Performed By: #### L [id number] ####[facility] ([facility])[address] [place] [address] CO2 [Moles/Vol] 26 mmol/L Normal 21-31 [facility] Comment on above: Performed By: #### L [id number] ####[facility] ([facility])[address] [place] [address] Creatinine [Mass/Vol] 1.03 mg/dL Normal 0.70-1.30 [facility] Comment on above: Performed By: #### L [id number] ####[facility] ([facility])[address] [place] [address] GLOMERULAR FILTRATION RATE ML/MIN/1.73 SQ M.PREDICTED 88.5 mL/min/1.73m*2 Normal >60.0 [facility] Comment on above: Result Comment: [facility]???s estimated glomerular filtration rate (eGFR) will [...] of individuals. Performed By: #### L [id number] ####[facility] ([facility])[address] [place] [address] Glucose [Mass/Vol] 185 mg/dL High 70-100 [facility] Comment on above: Performed By: #### L [id number] ####[facility] ([facility])[address] [place] [address] Potassium [Moles/Vol] 4.3 mmol/L Normal 3.5-5.1 [facility] Comment on above: Performed By: #### L [id number] ####[facility] ([facility])[address] [place] [address] Sodium [Moles/Vol] 137 mmol/L Normal 136-145 [facility] Comment on above: Performed By: #### L [id number] ####[facility] ([facility])[address] [place] [address] Urea nitrogen [Mass/Vol] 22 mg/dL Normal 7-25 [facility] Comment on above: Performed By: #### L [id number] ####[facility] ([facility] [place] [address] UREA NITROGEN/CREATININE (MASS RATIO) IN SER/PLAS 21.[address] [facility] Comment on above: Performed By: #### L [id number] ####[facility] ([facility])[address] [place] [address] Anion gap [Moles/Vol] 16 mmol/L Normal 7-20 [facility] Comment on above: Performed By: #### L [id number] #### [facility] ([facility] [address] [place] [address] Calcium [Mass/Vol] 9.6 mg/dL Normal 8.6-10.3 [facility] Comment on above: Performed By: #### L [id number] #### [facility] ([facility]) [address] [place] [address] Chloride [Moles/Vol] 99 mmol/L Normal 98-107 [facility] Comment on above: Performed By: #### L [id number] #### [facility] ([facility]) [address] [place] [address] CO2 [Moles/Vol] 26 mmol/L Normal 21-31 [facility] Comment on above: Performed By: #### L [id number] #### [facility] ([facility]) [address] [place] [address] Creatinine [Mass/Vol] 0.98 mg/dL Normal 0.70-1.30 [facility] Comment on above: Performed By: #### L [id number] #### [facility] ([facility]) [address] [place] [address] GLOMERULAR FILTRATION RATE ML/MIN/1.73 SQ M.PREDICTED 93.9 mL/min/1.73m*2 Normal >60.0 [facility] Comment on above: Result Comment: [facility]???s estimated glomerular filtration rate (eGFR) will [...] individuals. Performed By: #### L [id number] #### [facility] ([facility]) [address] [place] [address] Glucose [Mass/Vol] 176 mg/dL High 70-100 [facility] Comment on above: Performed By: #### L [id number] #### [facility] ([facility]) [address] [place] [address] Potassium [Moles/Vol] 4.3 mmol/L Normal 3.5-5.1 [facility] Comment on above: Performed By: #### L [id number] #### [facility] ([facility]) [address] [facility] [place] [address] Sodium [Moles/Vol] 137 mmol/L Normal 136-145 [facility] Comment on above: Performed By: #### L [id number] #### [facility] ([facility]) [address] [facility] [place] [address] Urea nitrogen [Mass/Vol] 22 mg/dL Normal 7-25 [facility] Comment on above: Performed By: #### L [id number] #### [facility] ([facility]) [address] [facility] [place] [address] UREA NITROGEN/CREATININE (MASS RATIO) IN SER/PLAS 22.[address] [facility] Comment on above: Performed By: #### L [id number] #### [facility] ([facility]) [address] [place] [address] CBC WITH AUTO DIFFERENTIALon 10-06-2023 Basophils (Bld) [#/Vol] 0.06 10*3/uL Normal 0.00-0.20 [facility] Comment on above: Performed By: #### L [id number] ####[facility] ([facility])[address] [place] [address] Basophils/100 WBC (Bld) 1.0 % Normal 0.0-1.0 [facility] Comment on above: Performed By: #### L [id number] ####[facility] ([facility])[address] [place] [address] Eosinophils (Bld) [#/Vol] 0.11 10*3/uL Normal 0.00-0.50 [facility] Comment on above: Performed By: #### L [id number] ####[facility] ([facility])[address] [place] [address] Eosinophils/100 WBC (Bld) 1.8 % Normal 0.0-6.0 [facility] Comment on above: Performed By: #### L [id number] ####[facility] ([facility] [place] [address] Erythrocyte distribution width (RBC) [Ratio] 12.3 % Normal 11.5-15.0 [facility] Comment on above: Performed By: #### L [id number] ####[facility] ([facility])[address] [place] [address] ERYTHROCYTE MEAN CORPUSCULAR HEMOGLOBIN CONCENTRATION (G/DL) BY AUTOMATED 34.1 g/dL Normal 32.0-35.0 [facility] Comment on above: Performed By: #### L [id number] ####[facility] ([facility] [place] [address] Hematocrit (Bld) [Volume fraction] 50.7 % Normal 39.0-55.0 [facility] Comment on above: Performed By: #### L [id number] ####[facility] ([facility])[address] [place] [address] Hemoglobin (Bld) [Mass/Vol] 17.3 g/dL High 13.0-17.0 [facility] Comment on above: Performed By: #### L [id number] ####[facility] ([facility])[address] [place] [address] Immature granulocytes (Bld) [#/Vol] 0.02 10*3/uL Normal 0.00-0.20 [facility] Comment on above: Performed By: #### L [id number] ####[facility] ([facility])[address] [place] [address] Immature granulocytes/100 WBC (Bld) 0.3 % Normal 0.0-1.0 [facility] Comment on above: Performed By: #### L [id number] ####[facility] ([facility])[address] [place] [address] Lymphocytes (Bld) [#/Vol] 1.25 10*3/uL Normal 1.20-4.00 [facility] Comment on above: Performed By: #### L [id number] ####[facility] ([facility])[address] [place] [address] Lymphocytes/100 WBC (Bld) 20.1 % Normal 20.0-45.0 [facility] Comment on above: Performed By: #### L [id number] ####[facility] ([facility])[address] [place] [address] MCH (RBC) [Entitic mass] 34.7 pg High 27.0-33.0 [facility] Comment on above: Performed By: #### L [id number] ####[facility] ([facility])[address] [place] [address] MCV (RBC) [Entitic vol] 101.6 fL High 82.0-98.0 [facility] Comment on above: Performed By: #### L [id number] ####[facility] ([facility])[address] [place] [address] Monocytes (Bld) [#/Vol] 0.75 10*3/uL Normal 0.10-1.00 [facility] Comment on above: Performed By: #### L [id number] ####[facility] ([facility])[address] [place] [address] Monocytes/100 WBC (Bld) 12.0 % Normal 5.0-12.0 [facility] Comment on above: Performed By: #### L [id number] ####[facility] ([facility])[address] [place] [address] Neutrophils (Bld) [#/Vol] 4.04 10*3/uL Normal 1.60-7.60 [facility] Comment on above: Performed By: #### L [id number] ####[facility] ([facility])[address] [place] [address] Neutrophils/100 WBC (Bld) 64.8 % Normal 40.0-72.0 [facility] Comment on above: Performed By: #### L [id number] ####[facility] ([facility])[address] [place] [address] NRBC (PER 100 WBCS) BY AUTOMATED COUNT 0.0 % Normal 0 [facility] Comment on above: Performed By: #### L [id number] ####[facility] ([facility])[address] [place] [address] PLATELETS (10*3/UL) IN BLOOD AUTOMATED COUNT 219 10*3/uL Normal 150-400 [facility] Comment on above: Performed By: #### L [id number] ####[facility] ([facility])[address] [place] [address] RBC (Bld) [#/Vol] 4.99 10*6/uL Normal 4.20-5.70 [facility] Comment on above: Performed By: #### L [id number] ####[facility] ([facility])[address] [place] [address] WBC (Bld) [#/Vol] 6.23 10*3/uL Normal 4.00-10.60 [facility] Comment on above: Performed By: #### L [id number] ####[facility] ([facility])[address] [place] [address] CONSULTon 10-06-2023 CONSULT -- Attestation signed by [...] obesity, LARS, tobacco dependence intially presents to [facility] after sudden onset SOB. He woke [...] for takotsubo cardiomyopathy. Patient was transferred to [facility] for further evalaution. Upon arrival, patient is [...] Value Ventricular Rate 88 Atrial Rate 88 AL Interval 162 QRS DURATION 84 QT Interval 404 QTC CALCULATION(BAZETT) 488 P [place] 50 R-[place] 0 T Wave [place] 61 Impression Sinus rhythm with occasional Premature [...] 12 l (more content not included)... Normal [facility] CONSULT Clinical Nutrition Assessment Name: Tera [...] with questions and contact the dietitian via Snap[employer] chat 8A-4P Tuesday-Tuesday. Or call the dietitian's office at extension [phone]. For weekends/holidays, the dietitian's can be reached by paging [phone] from 9A-3P. Unable to be reached via [employer] chat on Tuesday & .) [facility] -- Attestation signed by Carlos [...] obesity, LARS, tobacco dependence intially presents to [facility] after sudden onset SOB. He woke [...] for takotsubo cardiomyopathy. Patient was transferred to [facility] for further evalaution. Upon arrival, patient is [...] Value Ventricular Rate 88 Atrial Rate 88 AL Interval 162 QRS DURATION 84 QT Interval 404 QTC CALCULATION(BAZETT) 488 P [place] 50 R-[place] 0 T Wave [place] 61 Impression Sinus rhythm with occasional Premature [...] 12 l (more content not included)... Normal [facility] LEGIONELLA ANTIGEN, URINEon 10-06-2023 LEGIONELLA AG, UR Negative Normal NEG [facility] Comment on above: Result Comment: L. p neumophila serogroup 1 antigen not detected. A negative result does not exclude infection with Leginella pnemophila serogroup 1 nor does it rule out other microbial-caused respiratory infections of disease caused by other serogroups of Legionella pneumophila. Test Performed by [facility] [address] [place] [address] - Released 10/06/2023 20:50 Performed By: #### L [id number] ####[facility] [id number] [place] [address] LIPID PANELon 10-06-2023 CHOL/HDL 4.5 mg/dL Normal [facility] Comment on above: Performed By: #### L [id number] #### [facility] ([facility]) [address] [place] [address] Cholesterol [Mass/Vol] 229 mg/dL High 120-200 [facility] Comment on above: Performed By: #### L [id number] #### [facility] ([facility]) [address] [place] [address] CHOLESTEROL IN LDL (MG/DL) IN SERUM OR PLASMA BY CALCULATION Normal [facility] Comment on above: Result Comment: Calc ulated LDL invalid, triglycerides >400 mg/dl Performed By: #### L [id number] #### [facility] ([facility]) [address] [place] [address] Magnesium [Mass/Vol] 469 mg/dL High 40-149 [facility] Comment on above: Result Comment: TRIG LYCERIDE REFERENCE RANGE: 20 YEARS AND OLDER CARDIOVASCULAR RISK LESS THAN 150 mg/dL LOW RISK 150 TO 199 mg/dL BORDERLINE RISK 200 mg/dL AND GREATER HIGH RISK Performed By: #### L [id number] #### [facility] ([facility]) [address] [place] [address] Magnesium [Mass/Vol] 51 mg/dL Normal 23-92 [facility] Comment on above: Performed By: #### L [id number] #### [facility] ([facility]) [address] [place] [address] NON HDL CHOL. (LDL+VLDL) [address] [facility] Comment on above: Performed By: #### L [id number] #### [facility] ([facility]) [address] [place] [address] TOTAL VLDL-C 94 mg/dL High 0-40 [facility] Comment on above: Performed By: #### L [id number] #### [facility] ([employer]) [address] [place] [address] POCT GLUCOSE METER UNSOLICIT ED RESULTSon 10-06-2023 Glucose [Mass/Vol] 276 mg/dL High 70-105 [facility] Comment on above: Order Comment: Waive d Testing in the ED is performed under the ED CLIA certificate #[id number]. Result Comment: [email or web address] Performed By: #### L [id number] #### [facility] ([employer]) [address] [place] [address] Glucose [Mass/Vol] 187 mg/dL High 70-105 [facility] Comment on above: Order Comment: Waive d Testing in the ED is performed under the ED CLIA certificate #[id number]. Result Comment: [email or web address] Performed By: #### L [id number] #### [facility] ([employer]) [address] [place] [address] Glucose [Mass/Vol] 183 mg/dL High 70-105 [facility] Comment on above: Order Comment: Waive d Testing in the ED is performed under the ED CLIA certificate #[id number]. Result Comment: [email or web address] Performed By: #### L [id number] #### [facility] ([employer]) [address] [place] [address] Glucose [Mass/Vol] 183 mg/dL High 70-105 [facility] Comment on above: Order Comment: Waive d Testing in the ED is performed under the ED CLIA certificate #[id number]. Result Comment: [email or web address] Performed By: #### L [id number] ####[facility] ([employer])[address] [facility] [address] STREP PNEUMONIAE ANTIGEN, UR INEon 10-06-2023 STREPTOCOCCUS PNEUMONIAE AG PRESENCE IN URINE Negative Normal Negative [facility] Comment on above: Performed By: #### L [id number] ####[facility] ([facility])[address] [place] [address] TROPONIN Ion 10-06-2023 Troponin I.cardiac [Mass/Vol] 0.03 ng/mL Normal 0.00-0.04 [facility] Comment on above: Performed By: #### L [id number] ####[facility] ([facility])[address] [place] [address] CBCon 10-05-2023 Erythrocyte distribution width (RBC) [Ratio] 12.3 % Normal 11.5-15.0 [facility] Comment on above: Performed By: #### L [id number] #### [facility] ([facility]) [address] [place] [address] ERYTHROCYTE MEAN CORPUSCULAR HEMOGLOBIN CONCENTRATION (G/DL) BY AUTOMATED 33.8 g/dL Normal 32.0-35.0 [facility] Comment on above: Performed By: #### L [id number] #### [facility] ([facility]) [address] [place] [address] Hematocrit (Bld) [Volume fraction] 49.4 % Normal 39.0-55.0 [facility] Comment on above: Performed By: #### L [id number] #### [facility] ([facility]) [address] [place] [address] Hemoglobin (Bld) [Mass/Vol] 16.7 g/dL Normal 13.0-17.0 [facility] Comment on above: Performed By: #### L [id number] #### [facility] ([facility]) [address] [place] [address] IMMATURE PLATELET FRACTION % 11.1 % High 0.8-6.3 [facility] Comment on above: Performed By: #### L [id number] #### [facility] ([facility]) [address] [place] [address] MCH (RBC) [Entitic mass] 34.9 pg High 27.0-33.0 [facility] Comment on above: Performed By: #### L [id number] #### [facility] ([facility]) [address] [place] [address] MCV (RBC) [Entitic vol] 103.3 fL High 82.0-98.0 [facility] Comment on above: Performed By: #### L [id number] #### [facility] ([facility]) [address] [place] [address] PLATELETS (10*3/UL) IN BLOOD AUTOMATED COUNT 149 10*3/uL Low 150-400 [facility] Comment on above: Performed By: #### L [id number] #### [facility] ([facility]) [address] [place] [address] RBC (Bld) [#/Vol] 4.78 10*6/uL Normal 4.20-5.70 [facility] Comment on above: Performed By: #### L [id number] #### [facility] ([facility]) [address] [place] [address] WBC (Bld) [#/Vol] 6.46 10*3/uL Normal 4.00-10.60 [facility] Comment on above: Performed By: #### L [id number] #### [facility] ([facility]) [address] [place] [address] HEMOGLOBIN A1Con 10-05-2023 Glucose [Mass/Vol] 183 mg/dL Normal [facility] Comment on above: Performed By: #### L [id number] #### [facility] ([facility]) [address] [place] [address] HbA1c (Bld) [Mass fraction] 8.0 % High 4.0-6.0 [facility] Comment on above: Performed By: #### L [id number] #### [facility] ([facility]) [address] [place] [address] POCT GLUCOSE METER UNSOLICIT ED RESULTSon 10-05-2023 Glucose [Mass/Vol] 229 mg/dL High 70-105 [facility] Comment on above: Order Comment: Waive d Testing in the ED is performed under the ED CLIA certificate #[id number]. Result Comment: [email or web address] Performed By: #### L [id number] ####[facility] ([facility])[address] [facility] [place] [address] Covid-19 PCR ([facility])on 07-09 SARS-CoV-2 (COVID-19) RNA NIXON+probe Ql (Unsp spec) Detected Critically abnormal NOT DETECTED [facility] Comment on above: Result Comment: This test is not yet approved or cleared by the [place] FDA. When there are no FDA-approved or cleared tests available, and other criteria are met, FDA can make tests available under an emergency access mechanism called an Emergency Use Authorization (EUA). The EUA for this test is supported by the [employer] of Health and Human Service's (HHS's) declaration [...] used). Performed By: #### A 1C #### [facility] [address] [place] [address] Dr. Bridger Aggarwal INFLUENZA A AND B AGon 08-03 [facility] SEE BELOW Normal [facility] Comment on above: Result Comment: Nega tive for Flu A protein angiten. Infection due to Flu A cannot be ruled out. Flu A angiten in the sample may be below the detection limit of the test. Performed By: #### I NFLUAB #### [facility] [address] [place] [address] Dr. Bridger Aggarwal [facility] SEE BELOW Normal [facility] Comment on above: Result Comment: Nega tive for Flu B protein antigen. Infection due to Flu B cannot be ruled out. Flu B antigen in the sample may be below the detection limit of the test. Performed By: #### I NFLUAB #### [facility] [address] [place] [address] Dr. Bridger Aggarwal INFLUENZA A AG Negative Normal NEGATIVE SEE COMMENT [facility] Comment on above: Performed By: #### I NFLUAB #### [facility] [address] [place] [address] Dr. Bridger Aggarwal INFLUENZA B AG Negative Normal NEGATIVE SEE COMMENT [facility] Comment on above: Performed By: #### I NFLUAB #### [facility] [address] [place] [address] Dr. Bridger Aggarwal INTERNAL CONTROLS Within Normal Limits Normal Wi thin Normal Limits [facility] Comment on above: Performed By: #### I NFLUAB #### [facility] [address] [place] [address] Dr. Bridger Aggarwal CULTURE WOUNDon 04-23-2022 CULTURE [...] F Oxacillin <=0.25 S F Normal [facility] Comment on above: Performed By: #### A 1C #### [facility] [address] [place] [address] Dr. Bridger Aggarwal Covid-19 PCR ([facility])on 03-09 SARS-CoV-2 (COVID-19) RNA NIXON+probe Ql (Unsp spec) Not detected Normal NOT DETECTED [facility] Comment on above: Result Comment: This test is not yet approved or cleared by the [place] FDA. When there are no FDA-approved or cleared tests available, and other criteria are met, FDA can make tests available under an emergency access mechanism called an Emergency Use Authorization (EUA). The EUA for this test is supported by the [employer] of Health and Human Service's (HHS's) declaration [...] SARS-CoV-2. Performed By: #### A 1C #### [facility] [address] [place] [address] Dr. Bridger Aggarwal Covid-19 PCR ([facility])on SARS-CoV-2 (COVID-19) RNA NIXON+probe Ql (Unsp spec) Not detected Normal NOT DETECTED [facility] Comment on above: Result Comment: When diagnostic [...] for this test is supported by the [employer] of Health and Human Service's declaration that [...] used). Performed By: #### A 1C #### [facility] [address] [place] [address] Dr. Bridger Aggarwal T4 LABCORPon 01-01-2022 T4 [Mass/Vol] 4.7 ug/dL Normal 4.5-12.0 [facility] Comment on above: Performed By: #### A 1C #### [facility] [address] [place] [address] Dr. Bridegr Aggarwal FREE THYROXINE INDEX T7on FTI 1.69 Normal 1.30-4.50 [facility] Comment on above: Performed By: #### A 1C #### [facility] [address] [place] [address] Dr. Bridger Aggarwal T3U 36.0 % Normal 33.0-40.0 [facility] Comment on above: Performed By: #### A 1C #### [facility] [address] [place] [address] Dr. Bridger Aggarwal T4 [Mass/Vol] 4.70 ug/dL Normal 4.50-12.10 [facility] Comment on above: Performed By: #### A 1C #### [facility] [address] [place] [address] Dr. Bridger Aggarwal TSHon 12-28-2021 TSH 0.969 uIU/mL Normal 0.358-3.740 [facility] Comment on above: Performed By: #### A 1C #### [facility] [address] [place] [address] Dr. Bridger Aggarwal TSH RANGE SEE BELOW Normal [facility] Comment on above: Result Comment: <0.3 4 UIU/ml HYPERTHYROID 0.34-5.60 UIU/ml EUTHYROID >5.60 UIU/ml HYPOTHYROID Performed By: #### A 1C #### [facility] [address] [place] [address] Dr. Bridger Aggarwal CBC AUTO DIFFon 12-26-2021 BASO # 0.0 103/ul Normal 0.0-0.1 [facility] Comment on above: Performed By: #### C BC #### [facility] [address] [place] [address] Dr. Bridger Aggarwal Basophils/100 WBC (Bld) 0.4 % Normal 0.2-2.0 [facility] Comment on above: Performed By: #### C BC #### [facility] [address] [place] [address] Dr. Bridger Aggarwal EO # 0.1 103/ul Normal 0.0-0.7 [facility] Comment on above: Performed By: #### C BC #### [facility] [address] [place] [address] Dr. Bridger Aggarwal Eosinophils/100 WBC (Bld) 0.6 % Critically low 0.9-7.0 [facility] Comment on above: Performed By: #### C BC #### [facility] [address] [place] [address] Dr. Bridger Aggarwal Erythrocyte distribution width (RBC) [Ratio] 12.0 % Normal 11.0-15.0 [facility] Comment on above: Performed By: #### C BC #### [facility] [address] [place] [address] Dr. Bridger Aggarwal Hematocrit (Bld) [Volume fraction] 44.9 % Normal 42.0-54.0 [facility] Comment on above: Performed By: #### C BC #### [facility] [address] [place] [address] Dr. Bridger Aggarwal Hemoglobin (Bld) [Mass/Vol] 15.4 g/dL Normal 14.0-18.0 [facility] Comment on above: Performed By: #### C BC #### [facility] [address] [place] [address] Dr. Bridger Aggarwal IG # 0.03 10e3/ul Normal 0.00-0.03 [facility] Comment on above: Performed By: #### C BC #### [facility] [address] [place] [address] Dr. Bridger Aggarwal IG % 0.3 % Normal 0.0-0.5 [facility] Comment on above: Performed By: #### C BC #### [facility] [address] [place] [address] Dr. Bridger Aggarwal LYMPH # 1.5 103/ul Normal 1.2-3.8 [facility] Comment on above: Performed By: #### C BC #### [facility] [address] [place] [address] Dr. Bridger Aggarwal Lymphocytes/100 WBC (Bld) 14.2 % Critically low 20.5-60.0 [facility] Comment on above: Performed By: #### C BC #### [facility] [address] [place] [address] Dr. Bridger Aggarwal MANUAL DIFF REQ NO Normal [facility] Comment on above: Performed By: #### C BC #### [facility] [address] [place] [address] Dr. Bridger Aggarwal MCH (RBC) [Entitic mass] 34.2 pg Critically high 25.9-34.0 [facility] Comment on above: Performed By: #### C BC #### [facility] [address] [place] [address] Dr. Bridger Aggarwal MCHC (RBC) [Mass/Vol] 34.3 g/dL Normal 29.9-35.2 [facility] Comment on above: Performed By: #### C BC #### [facility] [address] [place] [address] Dr. Bridger Aggarwal MCV (RBC) [Entitic vol] 99.8 fL Critically high 80.0-94.0 [facility] Comment on above: Performed By: #### C BC #### [facility] [address] [place] [address] Dr. Bridger Aggarwal MONO # 0.7 103/ul Normal 0.3-0.8 [facility] Comment on above: Performed By: #### C BC #### [facility] [address] [place] [address] Dr. Bridger Aggarwal Monocytes/100 WBC (Bld) 6.3 % Normal 1.7-12.0 [facility] Comment on above: Performed By: #### C BC #### [facility] [address] [place] [address] Dr. Bridger Aggarwal NEUT # 8.2 103/ul Critically high 1.4-6.5 [facility] Comment on above: Performed By: #### C BC #### [facility] [address] [place] [address] Dr. Bridger Aggarwal Neutrophils/100 WBC (Bld) 78.2 % Critically high 43.0-75.0 [facility] Comment on above: Performed By: #### C BC #### [facility] [address] [place] [address] Dr. Bridger Aggarwal Platelet mean volume (Bld) [Entitic vol] 9.6 fL Normal 9.5-13.5 [facility] Comment on above: Performed By: #### C BC #### [facility] [address] [place] [address] Dr. Bridger Aggarwal PLT 247 103/ul Normal 150-450 [facility] Comment on above: Performed By: #### C BC #### [facility] [address] [address] [address] Bridger Aggarwal RBC 4.50 106/ul Critically low 4.70-6.10 [facility] Comment on above: Performed By: #### C BC #### [facility] [address] [place] [address] Dr. Bridger Aggarwal WBC 10.5 103/ul Normal 4.0-11.0 [facility] Comment on above: Performed By: #### C BC #### [facility] [address] [place] [address] HEAD WO CONon [...] JACOB LALA Date: 2021-12-26 13:30 Normal [facility] PROF CHEM 8 (BAS METB)on Anion gap [Moles/Vol] 17.1 mmol/L Normal [facility] Comment on above: Performed By: #### A 1C #### [facility] [address] [place] [address] Dr. Bridger Aggarwal Calcium [Mass/Vol] 9.4 mg/dL Normal 8.5-10.1 [facility] Comment on above: Performed By: #### A 1C #### [facility] [address] [place] [address] Dr. Bridger Aggarwal Chloride [Moles/Vol] 97 mmol/L Critically low 98-107 [facility] Comment on above: Performed By: #### A 1C #### [facility] [address] [place] [address] Dr. Bridger Aggarwal CO2 [Moles/Vol] 20.6 mmol/L Critically low 21.0-32.0 [facility] Comment on above: Performed By: #### A 1C #### [facility] [address] [place] [address] Dr. Bridger Aggarwal Creatinine [Mass/Vol] 0.96 mg/dL Normal 0.70-1.30 [facility] Comment on above: Performed By: #### A 1C #### [facility] [address] [place] [address] Dr. Bridger Aggarwal EGFR-AF TRINIDADIAN >60 Normal >=60 [facility] Comment on above: Performed By: #### A 1C #### [facility] [address] [place] [address] Dr. Bridger Aggarwal EGFR-NON AF TRINIDADIAN >60 Normal >=60 [facility] Comment on above: Performed By: #### A 1C #### [facility] [address] [place] [address] Dr. Bridger Aggarwal Glucose [Mass/Vol] 216 mg/dL Critically high 74-106 [facility] Comment on above: Performed By: #### A 1C #### [facility] [address] [place] [address] Dr. Bridger Aggarwal Potassium [Moles/Vol] 3.7 mmol/L Normal 3.5-5.1 [facility] Comment on above: Performed By: #### A 1C #### [facility] [address] [place] [address] Dr. Bridger Aggarwal Sodium [Moles/Vol] 131 mmol/L Critically low 136-145 [facility] Comment on above: Performed By: #### A 1C #### [facility] [address] [place] [address] Dr. Bridger Aggarwal Urea nitrogen [Mass/Vol] 26.0 mg/dL Critically high 7.0-18.0 [facility] Comment on above: Performed By: #### A 1C #### [facility] [address] [place] [address] Dr. Bridger Aggarwal Urea nitrogen/Creatinine [Mass ratio] 27.1 mg/mg Normal [facility] Comment on above: Performed By: #### A 1C #### [facility] [address] [place] [address] Dr. Bridger Aggarwal CBC AUTO DIFFon 12-18-2021 BASO # 0.0 103/ul Normal 0.0-0.1 [facility] Comment on above: Performed By: #### A 1C #### [facility] [address] [place] [address] Dr. Bridger Aggarwal Basophils/100 WBC (Bld) 0.4 % Normal 0.2-2.0 [facility] Comment on above: Performed By: #### A 1C #### [facility] [address] [place] [address] Dr. Bridger Aggarwal EO # 0.1 103/ul Normal 0.0-0.7 [facility] Comment on above: Performed By: #### A 1C #### [facility] [address] [place] [address] Dr. Brdiger Aggarwal Eosinophils/100 WBC (Bld) 1.2 % Normal 0.9-7.0 [facility] Comment on above: Performed By: #### A 1C #### [facility] [address] [place] [address] Dr. Bridger Aggarwal Erythrocyte distribution width (RBC) [Ratio] 12.5 % Normal 11.0-15.0 [facility] Comment on above: Performed By: #### A 1C #### [facility] [address] [place] [address] Dr. Bridger Aggarwal Hematocrit (Bld) [Volume fraction] 45.9 % Normal 42.0-54.0 [facility] Comment on above: Performed By: #### A 1C #### [facility] [address] [place] [address] Dr. Bridger Aggarwal Hemoglobin (Bld) [Mass/Vol] 15.8 g/dL Normal 14.0-18.0 [facility] Comment on above: Performed By: #### A 1C #### [facility] [address] [place] [address] Dr. Bridger Aggarwal IG # 0.04 10e3/ul Critically high 0.00-0.03 [facility] Comment on above: Performed By: #### A 1C #### [facility] [address] [place] [address] Dr. Bridger Aggarwal IG % 0.5 % Normal 0.0-0.5 [facility] Comment on above: Performed By: #### A 1C #### [facility] [address] [place] [address] Dr. Bridger Aggarwal LYMPH # 1.7 103/ul Normal 1.2-3.8 [facility] Comment on above: Performed By: #### A 1C #### [facility] [address] [place] [address] Dr. Bridger Aggarwal Lymphocytes/100 WBC (Bld) 22.3 % Normal 20.5-60.0 [facility] Comment on above: Performed By: #### A 1C #### [facility] [address] [place] [address] Dr. Bridger Aggarwal MANUAL DIFF REQ NO Normal [facility] Comment on above: Performed By: #### A 1C #### [facility] [address] [place] [address] Dr. Bridger Aggarwal MCH (RBC) [Entitic mass] 34.3 pg Critically high 25.9-34.0 [facility] Comment on above: Performed By: #### A 1C #### [facility] [address] [place] [address] Dr. Bridger Aggarwal MCHC (RBC) [Mass/Vol] 34.4 g/dL Normal 29.9-35.2 [facility] Comment on above: Performed By: #### A 1C #### [facility] [address] [place] [address] Dr. Bridger Aggarwal MCV (RBC) [Entitic vol] 99.6 fL Critically high 80.0-94.0 [facility] Comment on above: Performed By: #### A 1C #### [facility] [address] [place] [address] Dr. Bridger Aggarwal MONO # 0.7 103/ul Normal 0.3-0.8 [facility] Comment on above: Performed By: #### A 1C #### [facility] [address] [place] [address] Dr. Bridger Aggarwal Monocytes/100 WBC (Bld) 8.6 % Normal 1.7-12.0 [facility] Comment on above: Performed By: #### A 1C #### [facility] [address] [place] [address] Dr. Bridger Aggarwal NEUT # 5.2 103/ul Normal 1.4-6.5 [facility] Comment on above: Performed By: #### A 1C #### [facility] [address] [place] [address] Dr. Bridger Aggarwal Neutrophils/100 WBC (Bld) 67.0 % Normal 43.0-75.0 [facility] Comment on above: Performed By: #### A 1C #### [facility] [address] [place] [address] Dr. Bridger Aggarwal Platelet mean volume (Bld) [Entitic vol] 9.4 fL Critically low 9.5-13.5 [facility] Comment on above: Performed By: #### A 1C #### [facility] [address] [address] [address] Bridger Aggarwal PLT 259 103/ul Normal 150-450 [facility] Comment on above: Performed By: #### A 1C #### [facility] [address] [address] [address] Bridger Aggarwal RBC 4.61 106/ul Critically low 4.70-6.10 [facility] Comment on above: Performed By: #### A 1C #### [facility] [address] [address] [address] Bridger Aggarwal WBC 7.8 103/ul Normal 4.0-11.0 [facility] Comment on above: Performed By: #### A 1C #### [facility] [address] [place] [address] Dr. Bridger Aggarwal FREE T3on 12-18-2021 FREE T3 2.71 pg/mlL Normal 2.18-3.98 [facility] Comment on above: Performed By: #### C MP, T4, FT3, TSH, LIPID #### [facility] [address] [address] [address] Bridger Aggarwal GLYCOHEMOGLOBIN A1Con 2021 ADA RECOMMENDATION SEE BELOW Normal [facility] Comment on above: Result Comment: ADA RECOMMENDED LIMIT 4.0 - 6.0 ADA THERAPEUTIC TARGET < 7.0 ACTION SUGGESTED > 7.0 Performed By: #### A 1C #### [facility] [address] [address] [address] Bridger Aggarwal Glucose [Mass/Vol] 197 mg/dL Normal [facility] Comment on above: Performed By: #### A 1C #### [facility] [address] [address] [address] Bridger Aggarwal HbA1c (Bld) [Mass fraction] 8.5 % Critically high 4.5-6.2 [facility] Comment on above: Performed By: #### A 1C #### [facility] [address] [place] [address] Dr. Bridger Aggarwal LIPID PROFILEon 12-18-2021 CHOL-HDL RATIO NORM SEE BELOW Normal [facility] Comment on above: Result Comment: 3.3 - 4.4 LOW RISK 4.4 - 7.1 AVERAGE RISK 7.1 - 11.0 MODERATE RISK >11.0 HIGH RISK Performed By: #### C MP, T4, FT3, TSH, LIPID #### [facility] [address] [address] [address] Bridger Aggarwal Cholesterol [Mass/Vol] 157 mg/dL Normal <=200 [facility] Comment on above: Performed By: #### C MP, T4, FT3, TSH, LIPID #### [facility] [address] [address] [address] Bridger Aggarwal Cholesterol in HDL [Mass/Vol] 46 mg/dL Normal 40-60 [facility] Comment on above: Performed By: #### C MP, T4, FT3, TSH, LIPID #### [facility] [address] [place] [address] Dr. Bridger Aggarwal Cholesterol in LDL [Mass/Vol] 85.8 mg/dL Normal [facility] Comment on above: Performed By: #### C MP, T4, FT3, TSH, LIPID #### [facility] [address] [address] [address] Bridger Aggarwal Cholesterol.total/C holesterol in HDL [Mass ratio] 3.4 {ratio} Normal [facility] Comment on above: Performed By: #### C MP, T4, FT3, TSH, LIPID #### [facility] [address] [place] [address] Dr. Bridger Aggarwal HDL NORMAL > or = 60 mg/dl - LO W CARDIOVASCULAR RISK <40 mg/dl - HIGH CARDIOVASCULAR RISK Normal [facility] Comment on above: Performed By: #### C MP, T4, FT3, TSH, LIPID #### [facility] [address] [place] [address] Dr. Bridger Aggarwal LDL CALC NORMAL SEE BELOW Normal [facility] Comment on above: Result Comment: <100 mg/dl OPTIMAL 100 - 129 mg/dl NEAR OR ABOVE OPTIMAL 130 - 159 mg/dl BORDERLINE HIGH 160 - 189 mg/dl HIGH >190 mg/dl VERY HIGH Performed By: #### C MP, T4, FT3, TSH, LIPID #### [facility] [address] [address] [address] Bridger Aggarwal Triglyceride [Mass/Vol] 126 mg/dL Normal <=150 [facility] Comment on above: Performed By: #### C MP, T4, FT3, TSH, LIPID #### [facility] [address] [address] [address] Bridger Aggarwal VLDL CALC 25.2 mg/dL Normal [facility] Comment on above: Performed By: #### C MP, T4, FT3, TSH, LIPID #### [facility] [address] [place] [address] Dr. Bridger Aggarwal OCC BLD IMMUNO SCREENon 12-06 OCCULT BLOOD Negative Normal NEGATIVE [facility] Comment on above: Performed By: #### O BSCRN #### [facility] [address] [place] [address] Dr. Bridger Aggarwal PROF 14(COMP METB)on 022 Albumin [Mass/Vol] 3.6 g/dL Normal 3.4-5.0 [facility] Comment on above: Performed By: #### C MP, T4, FT3, TSH, LIPID #### [facility] [address] [place] [address] Dr. Bridger Aggarwal Albumin/Globulin [Mass ratio] 0.9 {ratio} Normal [facility] Comment on above: Performed By: #### C MP, T4, FT3, TSH, LIPID #### [facility] [address] [place] [address] Dr. Bridger Aggarwal ALP [Catalytic activity/Vol] 84 U/L Normal 46-116 [facility] Comment on above: Performed By: #### C MP, T4, FT3, TSH, LIPID #### [facility] [address] [place] [address] Dr. Bridger Aggarwal ALT [Catalytic activity/Vol] 45 U/L Normal 16-63 [facility] Comment on above: Performed By: #### C MP, T4, FT3, TSH, LIPID #### [facility] [address] [place] [address] Dr. Bridger Aggarwal Anion gap [Moles/Vol] 12.1 mmol/L Normal [facility] Comment on above: Performed By: #### C MP, T4, FT3, TSH, LIPID #### [facility] [address] [place] [address] Dr. Bridger Aggarwal AST [Catalytic activity/Vol] 20 U/L Normal 15-37 [facility] Comment on above: Performed By: #### C MP, T4, FT3, TSH, LIPID #### [facility] [address] [place] [address] Dr. Bridger Aggarwal Bilirubin [Mass/Vol] 0.6 mg/dL Normal 0.2-1.0 [facility] Comment on above: Performed By: #### C MP, T4, FT3, TSH, LIPID #### [facility] [address] [place] [address] Dr. Bridger Aggarwal Calcium [Mass/Vol] 9.1 mg/dL Normal 8.5-10.1 [facility] Comment on above: Performed By: #### C MP, T4, FT3, TSH, LIPID #### [facility] [address] [place] [address] Dr. Bridger Aggarwal Chloride [Moles/Vol] 100 mmol/L Normal 98-107 [facility] Comment on above: Performed By: #### C MP, T4, FT3, TSH, LIPID #### [facility] [address] [place] [address] Dr. Bridger Aggarwal CO2 [Moles/Vol] 28.4 mmol/L Normal 21.0-32.0 [facility] Comment on above: Performed By: #### C MP, T4, FT3, TSH, LIPID #### [facility] [address] [place] [address] Dr. Bridger Aggarwal Creatinine [Mass/Vol] 0.99 mg/dL Normal 0.70-1.30 [facility] Comment on above: Performed By: #### C MP, T4, FT3, TSH, LIPID #### [facility] [address] [place] [address] Dr. Bridger Aggarwal EGFR-AF TRINIDADIAN >60 Normal >=60 [facility] Comment on above: Performed By: #### C MP, T4, FT3, TSH, LIPID #### [facility] [address] [place] [address] Dr. Bridger Aggarwal EGFR-NON AF TRINIDADIAN >60 Normal >=60 [facility] Comment on above: Performed By: #### C MP, T4, FT3, TSH, LIPID #### [facility] [address] [address] [address] Bridger Aggarwal Globulin (S) [Mass/Vol] 3.8 g/dL Normal [facility] Comment on above: Performed By: #### C MP, T4, FT3, TSH, LIPID #### [facility] [address] [place] [address] Dr. Bridger Aggarwal Glucose [Mass/Vol] 260 mg/dL Critically high 74-106 [facility] Comment on above: Performed By: #### C MP, T4, FT3, TSH, LIPID #### [facility] [address] [place] [address] Dr. Bridger Aggarwal Potassium [Moles/Vol] 4.5 mmol/L Normal 3.5-5.1 [facility] Comment on above: Performed By: #### C MP, T4, FT3, TSH, LIPID #### [facility] [address] [place] [address] Dr. Bridger Aggarwal Protein [Mass/Vol] 7.4 g/dL Normal 6.4-8.2 [facility] Comment on above: Performed By: #### C MP, T4, FT3, TSH, LIPID #### [facility] [address] [place] [address] Dr. Bridger Aggarwal Sodium [Moles/Vol] 136 mmol/L Normal 136-145 [facility] Comment on above: Performed By: #### C MP, T4, FT3, TSH, LIPID #### [facility] [address] [place] [address] Dr. Bridger Aggarwal Urea nitrogen [Mass/Vol] 17.0 mg/dL Normal 7.0-18.0 [facility] Comment on above: Performed By: #### C MP, T4, FT3, TSH, LIPID #### [facility] [address] [address] [address] Bridger Aggarwal Urea nitrogen/Creatinine [Mass ratio] 17.2 mg/mg Normal [facility] Comment on above: Performed By: #### C MP, T4, FT3, TSH, LIPID #### [facility] [address] [place] [address] Dr. Bridger Aggarwal T4on 12-18-2021 T4 [Mass/Vol] 4.80 ug/dL Normal 4.50-12.10 [facility] Comment on above: Performed By: #### C MP, T4, FT3, TSH, LIPID #### [facility] [address] [place] [address] Dr. Bridger Aggarwal TSHon 12-18-2021 TSH 1.496 uIU/mL Normal 0.358-3.740 [facility] Comment on above: Performed By: #### C MP, T4, FT3, TSH, LIPID #### [facility] [address] [place] [address] Dr. Bridger Aggarwal TSH RANGE SEE BELOW Normal [facility] Comment on above: Result Comment: <0.3 4 UIU/ml HYPERTHYROID 0.34-5.60 UIU/ml EUTHYROID >5.60 UIU/ml HYPOTHYROID Performed By: #### C MP, T4, FT3, TSH, LIPID #### [facility] [address] [place] [address] Dr. Bridger Aggarwal Encounters Encounter Date Encounter Type Care Provider Facility Start: 12-05-2023 End: 12-05-2023 ambulatory AB [facility] Start: 10-13-2023 End: 10-13-20[facility]: 10-06-2023 Evaluation and management of inpatient DESTINEE COSTA [facility] Start: 10-05-2023 End: 10-09-2023 Evaluation and management of inpatient ADARSH HALL [facility] Start: 08-10-2022 End: 08-10-[address] [...] without abnormal findings DR ADARSH HALL [facility] Start: 12-18-2021 End: 12-19-[address] ADARSH HALL Facility:[facility] Start: 12-18-2021 End: 12-19-2021 Encounter for general adult medical examination without abnormal findings DR ADARSH HALL Facility:[facility] Procedures Date Procedure Procedure Detail Performing Clinician Start: 12-18-[address] GREG HALL Comment on above: Performed By: #### P [facility] #### [facility] [address] [place] [address] Dr. Bridger Aggarwal Payers Date Payer Category Payer Unknown [id number] .. [id number] 1975 Unknown [id number] 2..84 [id number] 1975 Unknown [id number] 2..84 [id number] 1973 Unknown [id number] 2.16.84 [id number] 1973 Unknown [id number] 2..84 [id number] 1973 Unknown [id number] 2.16.84 [id number] 1973 Unknown [id number] 2.16.84 [id number] 1973 Unknown [id number] 2.16.84 [id number] 1961 Private Health Insurance [id number] 1961 Unknown [id number] Clinical Notes 10-05-2023 to 12-05-2023 Note Date & Type Note Facility 12-05-2023 Note [facility] Cardiology Clinic Note Chief Complaint: Patient [...] disease- nonobstructive with sluggish coronary flow on [facility] 10/07/23 Hypertension Type 2 DM with A1C [...] obesity, LARS, tobacco dependence intially presents to [facility] after sudden onset SOB. He woke [...] 37.66 kg/m??? P (more content not included)... [facility] 10-13-2023 Note Cardiovascular Medic [facility] SUBJECTIVE Chief Complaint Patient presents with [...] disease- nonobstructive with sluggish coronary flow on [facility] 10/07/23 Hypertension Type 2 DM with A1C [...] obesity, LARS, tobacco dependence intially presents to [facility] after sudden onset SOB. He woke [...] Heart failure (CMS/HCC) Coronary artery disease involving otoe-missouria coronary artery of otoe-missouria heart without angina pectoris Benign hypertensive heart [...] at bedtime., Disp: (more content not included)... [facility] 10-13-2023 Note Patient [facility] for [facility] for new onset CHF. He underwent heart cath on 10/07/[address] Herrera. Was discharged with a LifeVest. He has completely stopped smoking and drinking alcohol. Denies chest pain, SOB, palpitations, and lightheadedness/syncope. Review of Systems All other systems reviewed and are negative. [facility] 10-09-2023 Note Patient discharged v ia private ride with . Patient educated on discharge and educated on heart failure education. All questions and concerns addressed at this time. [facility] 10-09-2023 Note 10/09/23 1403 CM Interventions CM Interventions Other (Comment) Follow up appointment for GI Clinic was scheduled for patient for tomorrow, however, per Epic chart, patient has already cancelled. Dr Costa notified [facility] 10-09-2023 Note Awaiting life vest a pproval and fitting. OTM will continue to follow. 1200: Life Vest approved. Awaiting RN for fitting. [facility] 10-09-2023 Note Hospital Medicine Discharge Summary Final Discharge Diagnosis: New onset heart failure with reduced EF, 20-25%, NYHA I, with global hypokinesis NICMP Coronary artery disease- nonobstructive with sluggish coronary flow on [facility] 10/07/23 Hypertension Type 2 DM with A1C [...] obesity, LARS, tobacco dependence intially presents to [facility] after sudden onset SOB. He woke [...] was discharged home. Dear Dr. Rafael MD [place] is advised to follow up with you [...] Medications These medications were sent to [facility] - [place], [place] - [address] [place] [address], [facility] [address] aspirin 81 mg chewable tablet atorvastatin 80 [...] (!) 129/100, pulse (more content not included)... [facility] 10-08-2023 Note land surveying survey worker lalito valentin by Dakota, at [facility], on behalf of patient. Facesheet & cardiology progress note faxed to [facility] to initiate life ves referral. Awaiting approval / denial and next steps before patient can discharge. UPDATE: Director Of People reached out to Dakota who reports he is still waiting for insurance approval for life vest. This information was shared with physician, bedside nurse, and long term care social worker. Dakota reports if he is approved today, he will attempt to get patient fitted for his life vest today as well. OTM team continuing to follow. [facility] 10-08-2023 Note Hospital Medicine Discharge Summary Final Discharge Diagnosis: New onset heart failure with reduced EF, 20-25%, NYHA I, with global hypokinesis NICMP Coronary artery disease- nonobstructive with sluggish coronary flow on [facility] 10/07/23 Hypertension Type 2 DM with A1C 8% Dyslipidemia Alcohol abuse Tobacco dependence Circumferential esophageal thickening-Outpatient GI Fup for concern of EGD, has hx of reflux, Cont PPI therapy Bilateral groundglass opacities and hilar lymphadenopathy. Be infectious versus inflammatory. Flu PCR and COVID-negative. Admission Diagnosis: Heart failure (CMS/[facility]) [I50.9] Hospital course: Tera Roberto is a 48 y.o. male with a PMH significant for T2DM, HTN, obesity, LARS, tobacco dependence intially presents to [facility] after sudden onset SOB. He woke [...] Medications These medications were sent to [facility] - [place], [place] - Formerly named [facility] [address], [facility] [address] aspirin 81 mg chewable tablet atorvastatin 80 [...] time of di (more content not included)... [facility] 10-08-2023 Note UTP CARDIOLOGY PROGR ESS [...] lock IV AND sodium chloride CV Testing: [facility] 10/07/23: FINAL IMPRESSIONS: Angiographically nonobstructive coronary arteries [...] a beta-nabila, a (more content not included)... [facility] 10-08-2023 Note Hospital Medicine Daily Progress Note - 10/09/2023 7:16 AM; Room: [address] [place] [address] Admission: 10/05/2023 7:45 PM; Length of stay: 4 days THE HOSPITALIST TEAM PREFERS TO USE [employer] CHAT FOR COMMUNICATION 7AM-7PM. IF I DO NOT RESPOND WITHIN 15 MINUTES, PLEASE PAGE ME/CALL THROUGH THE RETAIL MERCHANDISER. FROM 7PM-7AM, PLEASE PAGE [phone](COVR) Code Status: Full Code Barriers to Discharge: [...] Active Inpatient Problems Principal Problem: Heart failure ([facility]) Assessment and Plan Acute hypoxemic resp failure- [...] Academy of Nutrition and Dietetics and the [place] [employer] of Enteral and Parenteral Nutrition, meets [...] LDL 178 10/06/2023 No results found for: [id number] , IRON , TIBC , C3 , [...] beta-nabila, a RAA (more content not included)... [facility] 10-07-2023 Note Clinical Therapist [facility] Intervention Note Substance Intervention: Raise the [...] brief intervention. Assessment completed by: DELMA Morgan [facility] 10-07-2023 Note Cardiovascular Labor atory Report [...] internal jugular vein was obtained. A 6 Wolof 11 cm sheath was inserted without difficulty. [...] left radial artery was obtained. A 6 Wolof glide sheath was inserted without difficulty. Bilateral [...] fraction, exertional shortness of breath, abnormal echocardiogram [facility] 10-07-2023 Note ---- Attestation signed by [...] Value Ventricular Rate 88 Atrial Rate 88 AL Interval 162 QRS DURATION 84 QT Interval 404 QTC CALCULATION(BAZETT) 488 P [place] 50 R-[place] 0 T Wave [place] 61 Impression Sinus rhythm with occasional Premature ventricular complexes Left ventricular hypertrophy ( R in aVL ) Prolonged QT Abnormal ECG No previous ECGs available Confirmed by Daily MENDEZ, L.S. (2) on 10/06/2023 11:01:33 AM Lab Results Component Value Date TROPONINI 0.03 10/06/2023 Transthoracic echo (TTE) limited Result Date: 10/06/2023 1 1 [facility] [address] [place], [place] [phone] (fax) Echocardiogram-[facility] Name: TERA ROBERTO Study Date: 10/06/2023 10:25 AM B/P: 153 mmHg/104 mmHg HR: 96 bpm Date of : 1975 Location: [facility] Height: 69 in. Age: 48 year(s) Patient [...] No pericardial effusion. Procedure Staff Reading Group: [facility] Referring Physician: Keith Edwards Molder Labels: Zina Altamirano [facility] Ordering Physician: DESTINEE COSTA No nuclear medicine results found for the past 12 months Relevant Imaging Results Transthoracic echo (TTE) limited 1 1 [facility] [address] [place] [address] [phone] (fax) Echocardiogram-[facility] Name: TERA ROBERTO Study Date: 10/06/2023 10:25 AM B/P: (more content not included)... [facility] 10-07-2023 Note Clinician attempted to provide AOD brief intervention. Physician at bedside with pt. Clinician will make another attempt [facility] 10-07-2023 Note Hospital Medicine Daily Progress Note - 10/07/2023 9:30 AM; Room: [address] [place] [address] Admission: 10/05/2023 7:45 PM; Length of stay: 2 days THE HOSPITALIST TEAM PREFERS TO USE [employer] CHAT FOR COMMUNICATION 7AM-7PM. IF I DO NOT RESPOND WITHIN 15 MINUTES, PLEASE PAGE ME/CALL THROUGH THE RETAIL MERCHANDIS[employer]. FROM 7PM-7AM, PLEASE PAGE [phone](COVR) Code Status: Full Code Barriers to Discharge: [...] Active Inpatient Problems Principal Problem: Heart failure ([facility]) Assessment and Plan Acute hypoxemic resp failure- [...] Academy of Nutrition and Dietetics and the [place] Society of Enteral and Parenteral Nutrition, meets [...] LDL 178 10/06/2023 No results found for: [id number] , IRON , TIBC , C3 , C4 , DANTE , CANCA , ASO , PSA , CEA , CA125 , CA199 , AFP , CA153 Imaging Transthoracic echo (TTE) limited 1 1 [facility] [address] [place] [address] [phone] (fax) Echocardiogram-[facility] Name: TERA ROBERTO Study Date: 10/06/2023 10:25 AM B/P: 153 mmHg/104 mmHg HR: 96 bpm Date of : 1975 Location: [facility] Height: 69 in. Age: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
--- NOTE | 2024-09-17 06:36 | ECG_ITS ---
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
--- NOTE | 2024-09-17 06:44 | ED.GENADUL1 ---
HPI HPI - General Adult General Chief complaint: Fall Stated complaint: FALL Time Seen by Provider: 09/17/24 06:35 Source: patient Source information: slipped on ice fell onto L side --pain is over the L breast. Difficult to take a deep breath in. Coughing causes much pain Mode of arrival: walk-in History of Present Illness HPI narrative: 49-year-old male presents to the emergency department for a chief complaint of pain to the left lateral rib area. Last night he was in his yard and he slipped and fell and hit this area. He did not strike his head. There is been a sharp pain there since and it hurts more if he moves it. The pain is moderate to severe. Related Data Home Medications ?Medication ?Instructions ?Recorded ?Confirmed empagliflozin 25 mg tablet 25 mg PO DAILY 10/05/23 10/05/23 (Jardiance) glimepiride 4 mg tablet 8 mg PO DAILY 10/05/23 09/17/24 pioglitazone 30 mg tablet 30 mg PO DAILY 10/05/23 09/17/24 simvastatin 20 mg tablet 20 mg PO DAILY 10/05/23 09/17/24 venlafaxine 75 mg capsule,extended 75 mg PO DAILY 10/05/23 09/17/24 release 24 hr aspirin 81 mg chewable tablet 09/17/24 atorvastatin 80 mg tablet mg 09/17/24 Allergies Allergy/AdvReac Type Severity Reaction Status Date / Time No Known Drug Allergies Allergy Verified 09/17/24 06:21 Opioid HPI Opioid Management Most Recent Opioid Data: No Data to Display Review of Systems ROS Narrative A ten point review of systems is negative except as noted above. [facility] Medical History (Updated 09/17/24 @ 06:47 by Celio Miranda MD) Pneumonitis ?J98.4 - Other disorders of lung (ICD-10) Chest pain ?R07.9 - Chest pain, unspecified (ICD-10) Bronchitis ?J40 - Bronchitis, not specified as acute or chronic (ICD-10) Social History Smoking status: Current every day smoker Highest level of school completed/degree received: Associate degree: academic program Little interest or pleasure in doing things: not at all Feeling down, depressed, or hopeless: not at all Do you think of yourself as: straight/heterosexual Gender Identity: male Exam Narrative Exam Narrative: Nurses note and vital signs reviewed and patient is not hypoxic. General: The patient appears uncomfortable Skin: Warm, dry, no pallor noted. There is no rash noted. Head: Normocephalic, atraumatic Eye: Normal conjunctiva, no drainage Ears, Nose, Mouth, and Throat: oral mucosa is moist. Nares patent. Cardiovascular: Regular Rate and Rhythm Respiratory: Breath sounds are equal bilaterally. He has palpable tenderness to the left lateral rib area diffusely and there is no crepitus bruise or abrasion Back: non-tender GI: Soft and nontender Musculoskeletal: The patient has no evidence of calf tenderness, no pitting edema, symmetrical pulses noted bilaterally Neurological: A&O, normal speech Psychiatric: Cooperative Constitutional Vital Signs, click to edit/add: Last Vital Signs Temp 98.6 F 09/17/24 06:14 Pulse 98 H 09/17/24 06:14 Resp 14 09/17/24 06:14 BP 144/93 H 09/17/24 06:14 Pulse Ox 97 09/17/24 06:14 O2 Del Method Room Air 09/17/24 06:14 Course Vital Signs Vital signs: Vital Signs Temperature 98.6 F 09/17/24 06:14 Pulse Rate 98 H 09/17/24 06:14 Respiratory Rate 14 09/17/24 06:14 Blood Pressure 144/93 H 09/17/24 06:14 Pulse Oximetry 97 09/17/24 06:14 Oxygen Delivery Method Room Air 09/17/24 06:14 Temperature 98.6 F 09/17/24 06:14 Pulse Rate 98 H 09/17/24 06:14 Respiratory Rate 14 09/17/24 06:14 Blood Pressure 144/93 H 09/17/24 06:14 Pulse Oximetry 97 09/17/24 06:14 Oxygen Delivery Method Room Air 09/17/24 06:14 Medical Decision Making MDM Narrative Medical decision making narrative: Tests are ordered and the patient is signed out to Dr. Montoya at change of shift. Differential Diagnosis Differential Diagnosis: Rib fracture, rib contusion, pneumothorax Discharge Plan Discharge Chief Complaint: Fall Clinical Impression: Chest wall pain Patient Disposition: Still a Patient Prescriptions / Home Meds: No Action venlafaxine 75 mg capsule,extended release 24hr 75 mg PO DAILY simvastatin 20 mg tablet 20 mg PO DAILY glimepiride 4 mg tablet 8 mg PO DAILY pioglitazone 30 mg tablet 30 mg PO DAILY Jardiance 25 mg tablet 25 mg PO DAILY atorvastatin 80 mg tablet aspirin 81 mg tablet,chewable Print Language: Hungarian Referrals: Donn Hall MD [Primary Care Provider] - 1 week
[2024-09-17 07:04] LABS: Basophils Percent Auto 0.4 % (0.2-2.0); Eosinophils Absolute Auto 0.1 10^3/uL (0.0-0.7); Eosinophils Percent Auto 0.8 % (0.9-7.0); Hematocrit 47.2 % (42.0-54.0); Hemoglobin 16.5 g/dL (14.0-18.0); Immature Granulocytes Abs Auto 0.03 10^3/uL (0.00-0.03); Immature Granulocytes Pct Auto 0.4 % (0.0-0.5); Lymphocytes Percent Auto 11.3 % (20.5-60.0); Mean Corpuscular Hemoglobin 34.4 pg (25.9-34.0); Mean Corpuscular Volume 98.3 fL (80.0-94.0); Mean Platelet Volume 9.3 fL (9.5-13.5); Monocytes Absolute Auto 0.6 10^3/uL (0.3-0.8); Monocytes Percent Auto 7.3 % (1.7-12.0); Neutrophils Absolute Auto 6.7 10^3/uL (1.4-6.5); Neutrophils Percent Auto 79.8 % (43.0-75.0); Platelet Count 251 10^3/uL (150-450); Red Cell Distribution Width 11.8 % (11.0-15.0); White Blood Count 8.4 10^3/uL (4.0-11.0)
[2024-09-17] MEDS: KETOROLAC TROMETHAMINE 30 MG/ML VIAL IVP ×3 (07:11→18:27)
[2024-09-17 07:26] LABS: Anion Gap 19.4; BUN Creatinine Ratio 18.1; Calcium 9.4 mg/dL (8.5-10.1); Carbon Dioxide 23.1 mmol/L (21.0-32.0); Chloride 100 mmol/L (98-107); Estimated GFR (African America >60 (>=60 mL/min/1.73m^2); Estimated GFR (Non-African Ame >60 (>=60 mL/min/1.73m^2); Glucose 218 mg/dL (74-106); Potassium 4.5 mmol/L (3.5-5.1); Sodium 138 mmol/L (136-145); Troponin I High Sensitivity 15.5 pg/mL (4.0-76.1)
--- NOTE | 2024-09-17 07:27 | XR_ITS ---
The [address] [address] Patient Name: TERA ROBERTO MRN: [id number] date: 1975 Sex: M Assigned Patient Location: ED.MAIN Current Patient Location: ER Accession/Order Number: [id number] Exam Date: 09/17/2024 07:17 Report Date: 09/17/2024 07:46 At the request of: MARCIAL DENSON Procedure: XR ribs LT min 3V w CXR1V EXAMINATION: XR ribs LT min 3V w CXR1V HISTORY: fall COMPARISON: No relevant comparison available. FINDINGS: LUNGS: No significant pulmonary parenchymal abnormalities. PLEURA: No pneumothorax, effusion, or pleural thickening. Slight elevation the right hemidiaphragm MEDIASTINUM: No visible mass or adenopathy. CARDIAC: No cardiomegaly or cardiac silhouette abnormality. RIBS: Acute fractures involving the left lateral fifth sixth and seventh ribs OTHER: Negative. XR/XR ribs LT min 3V w CXR1V IMPRESSION: Acute left lateral fifth sixth and seventh rib fractures. Electronically authenticated by: HAL KATHLEEN Date: 09/17/2024 07:46
[2024-09-17] MEDS: METHYLPREDNISOLONE SOD SUCC PF 40 MG/ML VIAL IVP (07:47)
[2024-09-17] MEDS: ORPHENADRINE 60 MG/ 2 ML VIAL IV (07:47)
[2024-09-17] MEDS: MORPHINE SULFATE 2 MG/ML SYRINGE 4 MG IV (08:13)
--- NOTE | 2024-09-17 08:49 | P.HP_ITS ---
HPI H&P: HPI History of Present Illness Chief complaint: FALL Narrative: Patient walking late last night, slip and fall, no syncope, no chest pain, no shortness of breath just a fall, had instant pain left lateral chest wall, try to get through the night, just having some difficulty breathing due to the pain with deep inspiration. Not really feeling short of breath just hurts when he does When I saw patient emergency room, resting fairly comfortably in the bed, does have some mild conversational dyspnea secondary to the pain Opioid HPI Opioid Management Most Recent Pain and Opioid Data: No Data to Display [facility] Medical History (Updated 09/17/24 @ 08:52 by Carmen Carty RN) Depression ?F32.A - Depression, unspecified (ICD-10) Diabetes type 2 ?E11.9 - Type 2 diabetes mellitus without complications (ICD-10) Hypertension ?I10 - Essential (primary) hypertension (ICD-10) Pneumonitis ?J98.4 - Other disorders of lung (ICD-10) Chest pain ?R07.9 - Chest pain, unspecified (ICD-10) Bronchitis ?J40 - Bronchitis, not specified as acute or chronic (ICD-10) Social History Smoking status: Current every day smoker Highest level of school completed/degree received: Associate degree: academic program Little interest or pleasure in doing things: not at all Feeling down, depressed, or hopeless: not at all Do you think of yourself as: straight/heterosexual Gender Identity: male Meds Home Medications and Allergies Home Medications ?Medication ?Instructions ?Recorded ?Confirmed ?Type empagliflozin 25 mg tablet 25 mg PO DAILY 10/05/23 10/05/23 History (Jardiance) glimepiride 4 mg tablet 8 mg PO DAILY 10/05/23 09/17/24 History pioglitazone 30 mg tablet 30 mg PO DAILY 10/05/23 09/17/24 History simvastatin 20 mg tablet 20 mg PO DAILY 10/05/23 09/17/24 History venlafaxine 75 mg capsule,extended 75 mg PO DAILY 10/05/23 09/17/24 History release 24 hr aspirin 81 mg chewable tablet 09/17/24 History atorvastatin 80 mg tablet mg 09/17/24 History Allergies Allergy/AdvReac Type Severity Reaction Status Date / Time No Known Drug Allergies Allergy Verified 09/17/24 06:21 Exam Constitutional Vital Signs, click to edit/add: Last Vital Signs Temp 98.6 F 09/17/24 06:14 Pulse 100 H 09/17/24 08:30 Resp 21 H 09/17/24 08:30 BP 146/87 H 09/17/24 08:12 Pulse Ox 93 L 09/17/24 08:30 O2 Del Method Room Air 09/17/24 08:12 Documenting provider has reviewed patient's vital signs: yes Common normals: apparent distress (Mild conversational dyspnea secondary to pain) Chest Common normals: inspection of chest normal; palpation of chest abnormal (Left lateral chest wall tenderness) Respiratory Common normals: no retractions, no use of accessory muscles and clear to auscultation bilaterally; abnormal respiratory effort (Mild conversational dyspnea secondary to pain) Cardio Common normals: regular rate and regular rhythm GI Common normals: Normal to inspection, nondistended, normoactive bowel sounds present Results Labs Labs: Short CBC 09/17/24 Range/Units 06:57 WBC 8.4 (4.0-11.0) 10^3/uL Hgb 16.5 (14.0-18.0) g/dL Hct 47.2 (42.0-54.0) % Plt Count 251 (150-450) 10^3/uL BMP 09/17/24 06:57 Sodium 138 Potassium 4.5 Chloride 100 Carbon Dioxide 23.1 BUN 17.0 Creatinine 0.94 Glucose 218 H Calcium 9.4 Assessment and Plan Assessment and Plan (1) Intractable pain: (2) Multiple fractures of ribs: Plan Admission findings: Sinus tachycardia, mild elevation in blood pressure secondary to left 5th through 7th rib fractures, severe pain. Chest wall contusion resulting in left 5th through 7th rib fractures-patient mated observation for pain control, Toradol, tizanidine, Ultram, Dilaudid for breakthrough pain NIDDM-insulin sliding scale Depression-continue with home medications Hypercholesterolemia can hold hypercholesterolemia medications while he is in observation status Admission status: Patient with acute left 5th through 7th rib fractures, needing pain control, will initially place patient in observation, if medically necessary treatment will span 2 midnights will change patient to inpatient status, currently this seems unlikely
--- OUTSIDE RECORDS SUMMARY | 2024-09-17 10:01 | XMS_ITS | CCD ---
Author Organization [facility] Care Team Providers Care Industry Operations Investigator Name Role Phone RAFAEL, DR ALTAMIRANO Admitting [...] disease (2 sources) Atherosclerotic heart disease of [place] coronary artery without angina pectoris; Translations: [Atherosclerotic heart disease of [place] coronary artery without angina pectoris] Onset: 10-13-2023 [...] Range Facility Office Visiton 12-05-2023 Follow-up visit [id number] Tera Roberto 1975 M Date Provider Department Center 12/05/2023 YAKELIN MICHELLE TATE Abreu Family History Problem Relation Age of Onset Heart attack Maternal Grandfather Family Status - Relation Status Age at Maternal Grandfather Level of Service:56692 NE OFFICE/OUTPATIENT ESTABLISHED MOD MDM [address] [facility] 36on 12-01-2023 36 Patient informed. Normal [facility] 36on 11-29-2023 36 Please let him know his EF improved to 55%. He no longer needs to wear the LifeVest. Follow-up as scheduled. Thanks! Normal [facility] Telephoneon 11-29-2023 Telephone [phone] Tera Roberto 1975 M Date Provider Department Center 11/29/2023 ZACK OLSON Family History Problem Relation Age of Onset Heart attack Maternal Grandfather Family Status - Relation Status Age at Maternal Grandfather Normal [facility] 36on 11-02-2023 36 2nd attempt: LMOM Normal [facility] Follow-Upon 10-13-2023 Follow-Up [id number] Tera Roberto 1975 [facility] Provider Department Center 10/13/2023 [id number] MONTGOMERY TATE [facility] Family History Problem Relation Age of Onset Heart attack Maternal Grandfather Family Status - Relation Status Age at Maternal Grandfather Level of Service:57785 NE OFFICE/OUTPATIENT ESTABLISHED MOD MDM 30 MIN Reason for Visit and Comments: Hospital Follow-up [832] Congestive Heart Failure [127] Hypertension [558560] [facility] 10-11-2023 36 Called patient and left a message to call me to schedule a pulmonary hospital follow up with either Dr. Valenzuela or Dr. Diamond. [facility] 10-10-2023 36 Discharge date: Call date: [...] was very happy with his experience at [facility] and he wanted to thank everyone for saving his life. [facility] Documentationon 10-10-2023 Documentation [id number] CamilleTera 1975 M Date Provider Department Center 10/10/202317894-[id number] ACEVED[facility] No family history on file Reason for Visit and Comments: HF inpatient satisfaction survey sent. [Other] [facility] Telephoneon 10-10-2023 Telephone [phone] CamilleTera 1975 M Date Provider Department Center 10/10/[id number]-[id number] ACE[facility]ED[facility]AS No family history on file [facility] 3010-09-2023 30 The patient is Moderately [...] and behaviors that affect risk of falls [place] fall precautions as indicated by assessment Problem: [...] next 3 months Outcome: Progressing Normal [facility] BASIC METABOLIC PANELon 03-0 Anion gap [Moles/Vol] 12 mmol/L Normal 7-20 [facility] Comment on above: Performed By: #### L [id number] ####[facility] (BEAKER)[address] [place] [address] Calcium [Mass/Vol] 8.9 mg/dL Normal 8.6-10.3 [facility] Comment on above: Performed By: #### L [id number] ####[facility] (BEAKER)[address] [facility] [place] [address] Chloride [Moles/Vol] 104 mmol/L Normal 98-107 [facility] Comment on above: Performed By: #### L [id number] ####[facility] (BEAKER)[address] [facility] [address] CO2 [Moles/Vol] 25 mmol/L Normal 21-31 [facility] Comment on above: Performed By: #### L [id number] ####[facility] (BEAKER)[address] [place] [address] Creatinine [Mass/Vol] 0.89 mg/dL Normal 0.70-1.30 [facility] Comment on above: Performed By: #### L [id number] ####[facility] ([facility])[address] [place] [address] GLOMERULAR FILTRATION RATE ML/MIN/1.73 SQ M.PREDICTED 104.4 mL/min/1.73m*2 Normal >60.0 [facility] Comment on above: Result Comment: [facility]???s estimated glomerular filtration rate (eGFR) will [...] of individuals. Performed By: #### L [id number] ####[facility] ([facility])[address] [place] [address] Glucose [Mass/Vol] 119 mg/dL High 70-100 [facility] Comment on above: Performed By: #### L [id number] ####[facility] ([facility])[address] [place] [address] Potassium [Moles/Vol] 4.1 mmol/L Normal 3.5-5.1 [facility] Comment on above: Performed By: #### L [id number] ####[facility] ([facility])[address] [place] [address] Sodium [Moles/Vol] 137 mmol/L Normal 136-145 [facility] Comment on above: Performed By: #### L [id number] ####[facility] ([facility])[address] [place] [address] Urea nitrogen [Mass/Vol] 29 mg/dL High 7-25 [facility] Comment on above: Performed By: #### L [id number] ####[facility] ([facility])[address] [place] [address] UREA NITROGEN/CREATININE (MASS RATIO) IN SER/PLAS 32.[address] [facility] Comment on above: Performed By: #### L [id number] ####[facility] ([facility])[address] [place] [address] CBC WITH AUTO DIFFERENTIALon 10-09-2023 Basophils (Bld) [#/Vol] 0.04 10*3/uL Normal 0.00-0.20 [facility] Comment on above: Performed By: #### L [id number] ####[facility] ([facility])[address] [place] [address] Basophils/100 WBC (Bld) 0.7 % Normal 0.0-1.0 [facility] Comment on above: Performed By: #### L [id number] ####[facility] ([facility])[address] [place] [address] Eosinophils (Bld) [#/Vol] 0.12 10*3/uL Normal 0.00-0.50 [facility] Comment on above: Performed By: #### L [id number] ####[facility] ([facility])[address] [place] [address] Eosinophils/100 WBC (Bld) 2.1 % Normal 0.0-6.0 [facility] Comment on above: Performed By: #### L [id number] ####[facility] ([facility])[address] [place] [address] Erythrocyte distribution width (RBC) [Ratio] 12.0 % Normal 11.5-15.0 [facility] Comment on above: Performed By: #### L [id number] ####[facility] ([facility])[address] [place] [address] ERYTHROCYTE MEAN CORPUSCULAR HEMOGLOBIN CONCENTRATION (G/DL) BY AUTOMATED 34.2 g/dL Normal 32.0-35.0 [facility] Comment on above: Performed By: #### L [id number] ####[facility] (BEAKER)[address] [place] [address] Hematocrit (Bld) [Volume fraction] 47.7 % Normal 39.0-55.0 [facility] Comment on above: Performed By: #### L [id number] ####[facility] (BEAKER)[address] [place] [address] Hemoglobin (Bld) [Mass/Vol] 16.3 g/dL Normal 13.0-17.0 [facility] Comment on above: Performed By: #### L [id number] ####[facility] (BEAKER)[address] [place] [address] Immature granulocytes (Bld) [#/Vol] 0.03 10*3/uL Normal 0.00-0.20 [facility] Comment on above: Performed By: #### L [id number] ####[facility] (BEAKER)[address] [place] [address] Immature granulocytes/100 WBC (Bld) 0.5 % Normal 0.0-1.0 [facility] Comment on above: Performed By: #### L [id number] ####[facility] (BEAKER)[address] [place] [address] Lymphocytes (Bld) [#/Vol] 1.51 10*3/uL Normal 1.20-4.00 [facility] Comment on above: Performed By: #### L [id number] ####[facility] (BEAKER)[address] [place] [address] Lymphocytes/100 WBC (Bld) 26.2 % Normal 20.0-45.0 [facility] Comment on above: Performed By: #### L [id number] ####[facility] (BEAKER)[address] [place] [address] MCH (RBC) [Entitic mass] 35.0 pg High 27.0-33.0 [facility] Comment on above: Performed By: #### L [id number] ####[facility] (BEAKER)[address] [place] [address] MCV (RBC) [Entitic vol] 102.4 fL High 82.0-98.0 [facility] Comment on above: Performed By: #### L [id number] ####[facility] (BEAKER)[address] [place] [address] Monocytes (Bld) [#/Vol] 0.80 10*3/uL Normal 0.10-1.00 [facility] Comment on above: Performed By: #### L [id number] ####[facility] (AKER)[address] [place] [address] Monocytes/100 WBC (Bld) 13.9 % High 5.0-12.0 [facility] Comment on above: Performed By: #### L [id number] ####[facility] (AKER)[address] [place] [address] Neutrophils (Bld) [#/Vol] 3.26 10*3/uL Normal 1.60-7.60 [facility] Comment on above: Performed By: #### L [id number] ####[facility] (AKER)[address] [place] [address] Neutrophils/100 WBC (Bld) 56.6 % Normal 40.0-72.0 [facility] Comment on above: Performed By: #### L [id number] ####[facility] (BEAKER)[address] [place] [address] NRBC (PER 100 WBCS) BY AUTOMATED COUNT 0.0 % Normal 0 [facility] Comment on above: Performed By: #### L [id number] ####[facility] (BEAKER)[address] [place] [address] PLATELETS (10*3/UL) IN BLOOD AUTOMATED COUNT 181 10*3/uL Normal 150-400 [facility] Comment on above: Performed By: #### L [id number] ####[facility] (BEAKER)[address] [place] [address] RBC (Bld) [#/Vol] 4.66 10*6/uL Normal 4.20-5.70 [facility] Comment on above: Performed By: #### L [id number] ####[facility] ([facility])[address] [place] [address] WBC (Bld) [#/Vol] 5.76 10*3/uL Normal 4.00-10.60 [facility] Comment on above: Performed By: #### L [id number] ####[facility] ([facility])[address] [place] [address] MAGNESIUMon 10-09-2023 Magnesium [Mass/Vol] 2.1 mg/dL Normal 1.9-2.7 [facility] Comment on above: Performed By: #### L [id number] #### [facility] ([facility]) [address] [place] [address] POCT GLUCOSE METER UNSOLICIT ED RESULTSon 10-09-2023 Glucose [Mass/Vol] 160 mg/dL High 70-105 [facility] Comment on above: Order Comment: Waive d Testing in the ED is performed under the ED CLIA certificate #[id number]. Result Comment: [email or web address] Performed By: #### L [id number] ####[facility] ([facility])[address] [place] [address] Glucose [Mass/Vol] 148 mg/dL High 70-105 [facility] Comment on above: Order Comment: Waive d Testing in the ED is performed under the ED CLIA certificate #[id number]. Result Comment: [email or web address] Performed By: #### L [id number] ####[facility] ([facility])[address] [place] [address] Glucose [Mass/Vol] 146 mg/dL High 70-105 [facility] Comment on above: Order Comment: Waive d Testing in the ED is performed under the ED CLIA certificate #[id number]. Result Comment: [email or web address] Performed By: #### L [id number] ####[facility] ([facility])[address] [place] [address] 30on 10-08-2023 30 The patient is Moderately [...] and behaviors that affect risk of falls [place] fall precautions as indicated by assessment Educate [...] prevent overall improvement and discharge Normal [facility] 30 The patient is Moderately Stable - Low risk of patient condition declining or worsening The patient's goals for the shift include comfort The clinical goals for the shift include hemodynamically stable Problem: Pain - Adult Goal: Verbalizes/displays adequate comfort level or baseline comfort level Outcome: Progressing Problem: Safety - Adult Goal: Free from fall injury Outcome: Progressing Flowsheets (Taken 10/08/2023 075) Free from fall injury: Assess patient frequently for physical needs Identify cognitive and physical deficits and behaviors that affect risk of falls [place] fall precautions as indicated by assessment Problem: [...] next 3 months Outcome: Progressing Normal [facility] 30 The patient is Moderately Stable [...] and behaviors that affect risk of falls [place] fall precautions as indicated by assessment Educate [...] affect the heart Outcome: Progressing Normal [facility] BASIC METABOLIC PANELon 03-0 Anion gap [Moles/Vol] 15 mmol/L Normal 7-20 [facility] Comment on above: Performed By: #### L [id number] #### [facility] (BEAKER) [address] [place] [address] Calcium [Mass/Vol] 9.0 mg/dL Normal 8.6-10.3 [facility] Comment on above: Performed By: #### L [id number] #### [facility] (BEAKER) [address] [place] [address] Chloride [Moles/Vol] 101 mmol/L Normal 98-107 [facility] Comment on above: Performed By: #### L [id number] #### [facility] (BEAKER) [address] [place] [address] CO2 [Moles/Vol] 25 mmol/L Normal 21-31 [facility] Comment on above: Performed By: #### L [id number] #### [facility] (BEAKER) [address] [place] [address] Creatinine [Mass/Vol] 1.01 mg/dL Normal 0.70-1.30 [facility] Comment on above: Performed By: #### L [id number] #### [facility] [address] [place] [address] GLOMERULAR FILTRATION RATE ML/MIN/1.73 SQ M.PREDICTED 90.6 mL/min/1.73m*2 Normal >60.0 [facility] Comment on above: Result Comment: [facility]???s estimated glomerular filtration rate (eGFR) will [...] individuals. Performed By: #### L [id number] #### [facility] ([facility]) [address] [place] [address] Glucose [Mass/Vol] 160 mg/dL High 70-100 [facility] Comment on above: Performed By: #### L [id number] #### [facility] ([facility]) [address] [place] [address] Potassium [Moles/Vol] 4.1 mmol/L Normal 3.5-5.1 [facility] Comment on above: Performed By: #### L [id number] #### [facility] ([facility]) [address] [place] [address] Sodium [Moles/Vol] 137 mmol/L Normal 136-145 [facility] Comment on above: Performed By: #### L [id number] #### [facility] ([facility]) [address] [place] [address] Urea nitrogen [Mass/Vol] 34 mg/dL High 7-25 [facility] Comment on above: Performed By: #### L [id number] #### [facility] ([facility]) [address] [place] [address] UREA NITROGEN/CREATININE (MASS RATIO) IN SER/PLAS 33.[address] [facility] Comment on above: Performed By: #### L [id number] #### [facility] ([facility]) [address] [place] [address] CBC WITH AUTO DIFFERENTIALon 10-08-2023 Basophils (Bld) [#/Vol] 0.06 10*3/uL Normal 0.00-0.20 [facility] Comment on above: Performed By: #### L [id number] #### [facility] ([facility]) [address] [place] [address] Basophils/100 WBC (Bld) 1.0 % Normal 0.0-1.0 [facility] Comment on above: Performed By: #### L [id number] #### [facility] ([facility]) [address] [place] [address] Eosinophils (Bld) [#/Vol] 0.12 10*3/uL Normal 0.00-0.50 [facility] Comment on above: Performed By: #### L [id number] #### [facility] (BEAKER) [address] [place] [address] Eosinophils/100 WBC (Bld) 2.0 % Normal 0.0-6.0 [facility] Comment on above: Performed By: #### L [id number] #### [facility] [address] [place] [address] Erythrocyte distribution width (RBC) [Ratio] 12.2 % Normal 11.5-15.0 [facility] Comment on above: Performed By: #### L [id number] #### [facility] [address] [place] [address] ERYTHROCYTE MEAN CORPUSCULAR HEMOGLOBIN CONCENTRATION (G/DL) BY AUTOMATED 33.5 g/dL Normal 32.0-35.0 [facility] Comment on above: Performed By: #### L [id number] #### [facility] [address] [place] [address] Hematocrit (Bld) [Volume fraction] 48.0 % Normal 39.0-55.0 [facility] Comment on above: Performed By: #### L [id number] #### [facility] (BEAKER) [address] [place] [address] Hemoglobin (Bld) [Mass/Vol] 16.1 g/dL Normal 13.0-17.0 [facility] Comment on above: Performed By: #### L [id number] #### [facility] (BEAKER) [address] [place] [address] Immature granulocytes (Bld) [#/Vol] 0.02 10*3/uL Normal 0.00-0.20 [facility] Comment on above: Performed By: #### L [id number] #### [facility] (BEAKER) [address] [place] [address] Immature granulocytes/100 WBC (Bld) 0.3 % Normal 0.0-1.0 [facility] Comment on above: Performed By: #### L [id number] #### [facility] ([facility]) [address] [place] [address] Lymphocytes (Bld) [#/Vol] 1.47 10*3/uL Normal 1.20-4.00 [facility] Comment on above: Performed By: #### L [id number] #### [facility] ([facility]) [address] [facility] [place] [address] Lymphocytes/100 WBC (Bld) 24.6 % Normal 20.0-45.0 [facility] Comment on above: Performed By: #### L [id number] #### [facility] ([facility]) [address] [facility] [place] [address] MCH (RBC) [Entitic mass] 34.8 pg High 27.0-33.0 [facility] Comment on above: Performed By: #### L [id number] #### [facility] ([facility]) [address] [place] [address] MCV (RBC) [Entitic vol] 103.9 fL High 82.0-98.0 [facility] Comment on above: Performed By: #### L [id number] #### [facility] ([facility]) [address] [facility] [place] [address] Monocytes (Bld) [#/Vol] 0.85 10*3/uL Normal 0.10-1.00 [facility] Comment on above: Performed By: #### L [id number] #### [facility] ([facility]) [address] [place] [address] Monocytes/100 WBC (Bld) 14.2 % High 5.0-12.0 [facility] Comment on above: Performed By: #### L [id number] #### [facility] ([facility]) [address] [place] [address] Neutrophils (Bld) [#/Vol] 3.46 10*3/uL Normal 1.60-7.60 [facility] Comment on above: Performed By: #### L [id number] #### [facility] ([facility]) [address] [place] [address] Neutrophils/100 WBC (Bld) 57.9 % Normal 40.0-72.0 [facility] Comment on above: Performed By: #### L [id number] #### [facility] ([facility]) [address] [place] [address] NRBC (PER 100 WBCS) BY AUTOMATED COUNT 0.0 % Normal 0 [facility] Comment on above: Performed By: #### L [id number] #### [facility] ([facility]) [address] [place] [address] PLATELETS (10*3/UL) IN BLOOD AUTOMATED COUNT 196 10*3/uL Normal 150-400 [facility] Comment on above: Performed By: #### L [id number] #### [facility] ([facility]) [address] [place] [address] RBC (Bld) [#/Vol] 4.62 10*6/uL Normal 4.20-5.70 [facility] Comment on above: Performed By: #### L [id number] #### [facility] ([facility]) [address] [place] [address] WBC (Bld) [#/Vol] 5.98 10*3/uL Normal 4.00-10.60 [facility] Comment on above: Performed By: #### L [id number] #### [facility] ([facility]) [address] [place] [address] POCT GLUCOSE METER UNSOLICIT ED RESULTSon 10-08-2023 Glucose [Mass/Vol] 171 mg/dL High 70-105 [facility] Comment on above: Order Comment: Waive d Testing in the ED is performed under the ED CLIA certificate #[id number]. Result Comment: [email or web address] Performed By: #### L [id number] ####[facility] ([facility])[address] [place] [address] Glucose [Mass/Vol] 128 mg/dL High 70-105 [facility] Comment on above: Order Comment: Waive d Testing in the ED is performed under the ED CLIA certificate #[id number]. Result Comment: [email or web address] Performed By: #### L [id number] ####[facility] (BEAKER)[address] [place] [address] Glucose [Mass/Vol] 170 mg/dL High 70-105 [facility] Comment on above: Order Comment: Waive d Testing in the ED is performed under the ED CLIA certificate #[id number]. Result Comment: [email or web address] Performed By: #### L [id number] ####[facility] (BEAKER)[address] [place] [address] Glucose [Mass/Vol] 174 mg/dL High 70-105 [facility] Comment on above: Order Comment: Waive d Testing in the ED is performed under the ED CLIA certificate #[id number]. Result Comment: [email or web address] Performed By: #### L [id number] ####[facility] (BEAKER)[address] [place] [address] 30on 10-07-2023 30 The patient is Moderately [...] and behaviors that affect risk of falls [place] fall precautions as indicated by assessment Educate [...] next 3 months Outcome: Progressing Normal [facility] 10-07-2023 SAPNAS -- Attestation signed by Yakelin Herrera MD at 10/07/2023 11:02 AM Yakelin Herrera MD, MPH, [facility], [facility], [facility] Interventional Cardiology Pager Email: [email or web address] Patient: Tera Roberto Procedure Information Date/Time: 10/07/23 1700 Procedures: Coronary angiography Right heart cath Location: [facility] [employer] 3 / [facility] (Cath) Providers: Yakelin Herrera MD Clinical information reviewed: Allergies Physical Exam Airway Mallampati: III TM distance: >3 FB Neck ROM: full Cardiovascular Rhythm: regular Rate: normal Dental Pulmonary Abdominal Anesthesia Plan ASA 3 Anesthetic plan and risks discussed with patient. Use of blood products discussed with patient who. Plan discussed with attending. Additional Equipment Requests Normal [facility] BASIC METABOLIC PANELon 03-0 Anion gap [Moles/Vol] 14 mmol/L Normal 7-20 [facility] Comment on above: Performed By: #### L [id number] #### [facility] (BEAKER) [address] [place] [address] Calcium [Mass/Vol] 9.5 mg/dL Normal 8.6-10.3 [facility] Comment on above: Performed By: #### L [id number] #### [facility] (BEAKER) [address] [place] [address] Chloride [Moles/Vol] 101 mmol/L Normal 98-107 [facility] Comment on above: Performed By: #### L [id number] #### [facility] (BEAKER) [address] [place] [address] CO2 [Moles/Vol] 26 mmol/L Normal 21-31 [facility] Comment on above: Performed By: #### L [id number] #### [facility] ([facility]) [address] [place] [address] Creatinine [Mass/Vol] 0.96 mg/dL Normal 0.70-1.30 [facility] Comment on above: Performed By: #### L [id number] #### [facility] ([facility]) [address] [place] [address] GLOMERULAR FILTRATION RATE ML/MIN/1.73 SQ M.PREDICTED 96.3 mL/min/1.73m*2 Normal >60.0 [facility] Comment on above: Result Comment: [facility]???s estimated glomerular filtration rate (eGFR) will [...] individuals. Performed By: #### L [id number] #### [facility] ([facility]) [address] [place] [address] Glucose [Mass/Vol] 208 mg/dL High 70-100 [facility] Comment on above: Performed By: #### L [id number] #### [facility] ([facility]) [address] [place] [address] Potassium [Moles/Vol] 3.9 mmol/L Normal 3.5-5.1 [facility] Comment on above: Performed By: #### L [id number] #### [facility] ([facility]) [address] [place] [address] Sodium [Moles/Vol] 137 mmol/L Normal 136-145 [facility] Comment on above: Performed By: #### L [id number] #### [facility] ([facility]) [address] [place] [address] Urea nitrogen [Mass/Vol] 30 mg/dL High 7-25 [facility] Comment on above: Performed By: #### L [id number] #### [facility] ([facility]) [address] [place] [address] UREA NITROGEN/CREATININE (MASS RATIO) IN SER/PLAS 31.[address] [facility] Comment on above: Performed By: #### L [id number] #### [facility] ([facility]) [address] [place] [address] CBC WITH AUTO DIFFERENTIALon 10-07-2023 Basophils (Bld) [#/Vol] 0.03 10*3/uL Normal 0.00-0.20 [facility] Comment on above: Performed By: #### L [id number] #### [facility] ([facility]) [address] [place] [address] Basophils/100 WBC (Bld) 0.6 % Normal 0.0-1.0 [facility] Comment on above: Performed By: #### L [id number] #### [facility] ([facility]) [address] [place] [address] Eosinophils (Bld) [#/Vol] 0.11 10*3/uL Normal 0.00-0.50 [facility] Comment on above: Performed By: #### L [id number] #### [facility] ([facility]) [address] [place] [address] Eosinophils/100 WBC (Bld) 2.0 % Normal 0.0-6.0 [facility] Comment on above: Performed By: #### L [id number] #### [facility] ([facility]) [address] [place] [address] Erythrocyte distribution width (RBC) [Ratio] 12.2 % Normal 11.5-15.0 [facility] Comment on above: Performed By: #### L [id number] #### [facility] ([facility]) [address] [place] [address] ERYTHROCYTE MEAN CORPUSCULAR HEMOGLOBIN CONCENTRATION (G/DL) BY AUTOMATED 34.3 g/dL Normal 32.0-35.0 [facility] Comment on above: Performed By: #### L [id number] #### [facility] ([facility]) [address] [place] [address] Hematocrit (Bld) [Volume fraction] 50.5 % Normal 39.0-55.0 [facility] Comment on above: Performed By: #### L [id number] #### [facility] ([facility]) [address] [address] Hemoglobin (Bld) [Mass/Vol] 17.3 g/dL High 13.0-17.0 [facility] Comment on above: Performed By: #### L [id number] #### [facility] ([facility]) [address] [address] Immature granulocytes (Bld) [#/Vol] 0.02 10*3/uL Normal 0.00-0.20 [facility] Comment on above: Performed By: #### L [id number] #### [facility] ([facility]) [address] [place] [address] Immature granulocytes/100 WBC (Bld) 0.4 % Normal 0.0-1.0 [facility] Comment on above: Performed By: #### L [id number] #### [facility] ([facility]) [address] [place] [address] Lymphocytes (Bld) [#/Vol] 1.32 10*3/uL Normal 1.20-4.00 [facility] Comment on above: Performed By: #### L [id number] #### [facility] ([facility]) [address] [address] Lymphocytes/100 WBC (Bld) 24.3 % Normal 20.0-45.0 [facility] Comment on above: Performed By: #### L [id number] #### [facility] ([facility]) [address] [place] [address] MCH (RBC) [Entitic mass] 34.9 pg High 27.0-33.0 [facility] Comment on above: Performed By: #### L [id number] #### [facility] (BEAKER) [address] [place] [address] MCV (RBC) [Entitic vol] 102.0 fL High 82.0-98.0 [facility] Comment on above: Performed By: #### L [id number] #### [facility] (BEAKER) [address] [place] [address] Monocytes (Bld) [#/Vol] 0.68 10*3/uL Normal 0.10-1.00 [facility] Comment on above: Performed By: #### L [id number] #### [facility] ([facility]) [address] [place] [address] Monocytes/100 WBC (Bld) 12.5 % High 5.0-12.0 [facility] Comment on above: Performed By: #### L [id number] #### [facility] ([facility]) [address] [place] [address] Neutrophils (Bld) [#/Vol] 3.27 10*3/uL Normal 1.60-7.60 [facility] Comment on above: Performed By: #### L [id number] #### [facility] ([facility]) [address] [place] [address] Neutrophils/100 WBC (Bld) 60.2 % Normal 40.0-72.0 [facility] Comment on above: Performed By: #### L [id number] #### [facility] ([facility]) [address] [place] [address] NRBC (PER 100 WBCS) BY AUTOMATED COUNT 0.0 % Normal 0 [facility] Comment on above: Performed By: #### L [id number] #### [facility] ([facility]) [address] [place] [address] PLATELETS (10*3/UL) IN BLOOD AUTOMATED COUNT 216 10*3/uL Normal 150-400 [facility] Comment on above: Performed By: #### L [id number] #### [facility] [address] [place] [address] RBC (Bld) [#/Vol] 4.95 10*6/uL Normal 4.20-5.70 [facility] Comment on above: Performed By: #### L [id number] #### [facility] (BEAKER) [address] [place] [address] WBC (Bld) [#/Vol] 5.43 10*3/uL Normal 4.00-10.60 [facility] Comment on above: Performed By: #### L [id number] #### [facility] (BEAKER) [address] [place] [address] CONSULTon 10-07-2023 CONSULT -- Attestation signed by [...] bilateral hilar lymphadenopathy. Patient was transferred to [facility] for further evaluation, echocardiogram showed EF [...] No Food Insecurity (more content not included)... [facility] HPon 10-07-2023 HP -- Attestation signed by Yakelin Herrera MD at 10/07/2023 11:02 AM Yakelin Herrera MD, MPH, [facility], [facility], [facility] Interventional Cardiology Pager Email: [email or web address]. Patient with multiple coronary artery [...] were addressed and answered. Florina Prasad MD Salad Maker - PGY5 [facility] Normal [facility] POCT GLUCOSE METER UNSOLICIT ED RESULTSon 10-07-2023 Glucose [Mass/Vol] 173 mg/dL High 70-105 [facility] Comment on above: Order Comment: Waive d Testing in the ED is performed under the ED CLIA certificate #[id number]. Result Comment: [email or web address] Performed By: #### L [id number] #### [facility] ([employer]) [address] [place] [address] Glucose [Mass/Vol] 169 mg/dL High 70-105 [facility] Comment on above: Order Comment: Waive d Testing in the ED is performed under the ED CLIA certificate #[id number]. Result Comment: [email or web address] Performed By: #### L [id number] ####[facility] ([employer])[address] [place] [address] Glucose [Mass/Vol] 242 mg/dL High 70-105 [facility] Comment on above: Order Comment: Waive d Testing in the ED is performed under the ED CLIA certificate #[id number]. Result Comment: [email or web address] Performed By: #### L [id number] #### [facility] ([employer]) [address] [place] [address] 30on 10-06-2023 30 The patient is Moderately [...] and behaviors that affect risk of falls Crossnore fall precautions as indicated by assessment Educate [...] prevent overall improvement and discharge Normal [facility] 30 The patient is Moderately Stable - Low risk of patient condition declining or worsening The patient's goals for the shift include rest The clinical goals for the shift include comfort/vss Normal [facility] 30 The patient is Moderately Stable [...] maintained or improved Outcome: Progressing Normal [facility] B-TYPE NATRIURETIC PEPTIDEon 10-06-2023 Natriuretic peptide B (Bld) [Mass/Vol] 752 pg/mL High 0-100 [facility] Comment on above: Performed By: #### L [id number] #### [facility] (BEAKER) [address] [place] [address] Natriuretic peptide B (Bld) [Mass/Vol] 711 pg/mL High 0-100 [facility] Comment on above: Performed By: #### L [id number] #### [facility] [address] [place] [address] BASIC METABOLIC PANELon 09-09 Anion gap [Moles/Vol] 16 mmol/L Normal 7-20 [facility] Comment on above: Performed By: #### L [id number] ####[facility] [place] [address] Calcium [Mass/Vol] 9.7 mg/dL Normal 8.6-10.3 [facility] Comment on above: Performed By: #### L [id number] ####[facility] (BEAKER)[address] [place] [address] Chloride [Moles/Vol] 99 mmol/L Normal 98-107 [facility] Comment on above: Performed By: #### L [id number] ####[facility] (BEAKER)[address] [place] [address] CO2 [Moles/Vol] 26 mmol/L Normal 21-31 [facility] Comment on above: Performed By: #### L [id number] ####[facility] (BEAKER)[address] [place] [address] Creatinine [Mass/Vol] 1.03 mg/dL Normal 0.70-1.30 [facility] Comment on above: Performed By: #### L [id number] ####[facility] (BEAKER)[address] [place] [address] GLOMERULAR FILTRATION RATE ML/MIN/1.73 SQ M.PREDICTED 88.5 mL/min/1.73m*2 Normal >60.0 [facility] Comment on above: Result Comment: [facility]???s estimated glomerular filtration rate (eGFR) will [...] of individuals. Performed By: #### L [id number] ####[facility] ([facility])[address] [place] [address] Glucose [Mass/Vol] 185 mg/dL High 70-100 [facility] Comment on above: Performed By: #### L [id number] ####[facility] ([facility])[address] [place] [address] Potassium [Moles/Vol] 4.3 mmol/L Normal 3.5-5.1 [facility] Comment on above: Performed By: #### L [id number] ####[facility] ([facility])[address] [place] [address] Sodium [Moles/Vol] 137 mmol/L Normal 136-145 [facility] Comment on above: Performed By: #### L [id number] ####[facility] (BEAKER)[address] [place] [address] Urea nitrogen [Mass/Vol] 22 mg/dL Normal 7-25 [facility] Comment on above: Performed By: #### L [id number] ####[facility] [place] [address] UREA NITROGEN/CREATININE (MASS RATIO) IN SER/PLAS 21.[address] [facility] Comment on above: Performed By: #### L [id number] ####[facility] (BEAKER)[address] [place] [address] Anion gap [Moles/Vol] 16 mmol/L Normal 7-20 [facility] Comment on above: Performed By: #### L [id number] #### [facility] [address] [place] [address] Calcium [Mass/Vol] 9.6 mg/dL Normal 8.6-10.3 [facility] Comment on above: Performed By: #### L [id number] #### [facility] ([facility]) [address] [place] [address] Chloride [Moles/Vol] 99 mmol/L Normal 98-107 [facility] Comment on above: Performed By: #### L [id number] #### [facility] ([facility]) [address] [place] [address] CO2 [Moles/Vol] 26 mmol/L Normal 21-31 [facility] Comment on above: Performed By: #### L [id number] #### [facility] ([facility]) [address] [place] [address] Creatinine [Mass/Vol] 0.98 mg/dL Normal 0.70-1.30 [facility] Comment on above: Performed By: #### L [id number] #### [facility] ([facility]) [address] [place] [address] GLOMERULAR FILTRATION RATE ML/MIN/1.73 SQ M.PREDICTED 93.9 mL/min/1.73m*2 Normal >60.0 [facility] Comment on above: Result Comment: [facility]???s estimated glomerular filtration rate (eGFR) will [...] individuals. Performed By: #### L [id number] #### [facility] ([facility]) [address] [place] [address] Glucose [Mass/Vol] 176 mg/dL High 70-100 [facility] Comment on above: Performed By: #### L [id number] #### [facility] ([facility]) [address] [place] [address] Potassium [Moles/Vol] 4.3 mmol/L Normal 3.5-5.1 [facility] Comment on above: Performed By: #### L [id number] #### [facility] ([facility]) [address] [facility] [place] [address] Sodium [Moles/Vol] 137 mmol/L Normal 136-145 [facility] Comment on above: Performed By: #### L [id number] #### [facility] ([facility]) [address] [facility] [place] [address] Urea nitrogen [Mass/Vol] 22 mg/dL Normal 7-25 [facility] Comment on above: Performed By: #### L [id number] #### [facility] ([facility]) [address] [facility] [place] [address] UREA NITROGEN/CREATININE (MASS RATIO) IN SER/PLAS 22.[address] [facility] Comment on above: Performed By: #### L [id number] #### [facility] ([facility]) [address] [address] CBC WITH AUTO DIFFERENTIALon 10-06-2023 Basophils (Bld) [#/Vol] 0.06 10*3/uL Normal 0.00-0.20 [facility] Comment on above: Performed By: #### L [id number] ####[facility] ([facility])[address] [place] [address] Basophils/100 WBC (Bld) 1.0 % Normal 0.0-1.0 [facility] Comment on above: Performed By: #### L [id number] ####[facility] ([facility])[address] [place] [address] Eosinophils (Bld) [#/Vol] 0.11 10*3/uL Normal 0.00-0.50 [facility] Comment on above: Performed By: #### L [id number] ####[facility] (BEAKER)[address] [place] [address] Eosinophils/100 WBC (Bld) 1.8 % Normal 0.0-6.0 [facility] Comment on above: Performed By: #### L [id number] ####[facility] [place] [address] Erythrocyte distribution width (RBC) [Ratio] 12.3 % Normal 11.5-15.0 [facility] Comment on above: Performed By: #### L [id number] ####[facility] ([facility])[address] [place] [address] ERYTHROCYTE MEAN CORPUSCULAR HEMOGLOBIN CONCENTRATION (G/DL) BY AUTOMATED 34.1 g/dL Normal 32.0-35.0 [facility] Comment on above: Performed By: #### L [id number] ####[facility] [place] [address] Hematocrit (Bld) [Volume fraction] 50.7 % Normal 39.0-55.0 [facility] Comment on above: Performed By: #### L [id number] ####[facility] (BEAKER)[address] [place] [address] Hemoglobin (Bld) [Mass/Vol] 17.3 g/dL High 13.0-17.0 [facility] Comment on above: Performed By: #### L [id number] ####[facility] (BEAKER)[address] [place] [address] Immature granulocytes (Bld) [#/Vol] 0.02 10*3/uL Normal 0.00-0.20 [facility] Comment on above: Performed By: #### L [id number] ####[facility] (BEAKER)[address] [place] [address] Immature granulocytes/100 WBC (Bld) 0.3 % Normal 0.0-1.0 [facility] Comment on above: Performed By: #### L [id number] ####[facility] (BEAKER)[address] [place] [address] Lymphocytes (Bld) [#/Vol] 1.25 10*3/uL Normal 1.20-4.00 [facility] Comment on above: Performed By: #### L [id number] ####[facility] (BEAKER)[address] [place] [address] Lymphocytes/100 WBC (Bld) 20.1 % Normal 20.0-45.0 [facility] Comment on above: Performed By: #### L [id number] ####[facility] (BEAKER)[address] [place] [address] MCH (RBC) [Entitic mass] 34.7 pg High 27.0-33.0 [facility] Comment on above: Performed By: #### L [id number] ####[facility] (BEAKER)[address] [place] [address] MCV (RBC) [Entitic vol] 101.6 fL High 82.0-98.0 [facility] Comment on above: Performed By: #### L [id number] ####[facility] (BEAKER)[address] [place] [address] Monocytes (Bld) [#/Vol] 0.75 10*3/uL Normal 0.10-1.00 [facility] Comment on above: Performed By: #### L [id number] ####[facility] (BEAKER)[address] [place] [address] Monocytes/100 WBC (Bld) 12.0 % Normal 5.0-12.0 [facility] Comment on above: Performed By: #### L [id number] ####[facility] (BEAKER)[address] [place] [address] Neutrophils (Bld) [#/Vol] 4.04 10*3/uL Normal 1.60-7.60 [facility] Comment on above: Performed By: #### L [id number] ####[facility] (BEAKER)[address] [place] [address] Neutrophils/100 WBC (Bld) 64.8 % Normal 40.0-72.0 [facility] Comment on above: Performed By: #### L [id number] ####[facility] ([facility])[address] [place] [address] NRBC (PER 100 WBCS) BY AUTOMATED COUNT 0.0 % Normal 0 [facility] Comment on above: Performed By: #### L [id number] ####[facility] ([facility])[address] [place] [address] PLATELETS (10*3/UL) IN BLOOD AUTOMATED COUNT 219 10*3/uL Normal 150-400 [facility] Comment on above: Performed By: #### L [id number] ####[facility] ([facility])[address] [place] [address] RBC (Bld) [#/Vol] 4.99 10*6/uL Normal 4.20-5.70 [facility] Comment on above: Performed By: #### L [id number] ####[facility] ([facility])[address] [place] [address] WBC (Bld) [#/Vol] 6.23 10*3/uL Normal 4.00-10.60 [facility] Comment on above: Performed By: #### L [id number] ####[facility] ([facility])[address] [place] [address] CONSULTon 10-06-2023 CONSULT -- Attestation signed by [...] obesity, LARS, tobacco dependence intially presents to [facility] after sudden onset SOB. He woke up [...] for takotsubo cardiomyopathy. Patient was transferred to [facility] for further evalaution. Upon arrival, patient [...] Value Ventricular Rate 88 Atrial Rate 88 NE Interval 162 QRS DURATION 84 QT Interval 404 QTC CALCULATION(BAZETT) 488 P [place] 50 R-[place] 0 T Wave [place] 61 Impression Sinus rhythm with occasional Premature [...] l (more content not included)... Normal [facility] CONSULT Clinical Nutrition Assessment Name: Tera [...] with questions and contact the dietitian via [employer] chat 8A-4P Tuesday-Tuesday. Or call the dietitian's office at extension [phone]. For weekends/holidays, the dietitian's can be reached by paging [phone] from 9A-3P. Unable to be reached via [employer] chat on Tuesday & .) [facility] HP -- Attestation signed by Carlos [...] obesity, LARS, tobacco dependence intially presents to [facility] after sudden onset SOB. He woke up [...] for takotsubo cardiomyopathy. Patient was transferred to [facility] for further evalaution. Upon arrival, patient [...] Value Ventricular Rate 88 Atrial Rate 88 NE Interval 162 QRS DURATION 84 QT Interval 404 QTC CALCULATION(BAZETT) 488 P [place] 50 R-[place] 0 T Wave [place] 61 Impression Sinus rhythm with occasional Premature [...] l (more content not included)... Normal [facility] LEGIONELLA ANTIGEN, URINEon 10-06-2023 LEGIONELLA AG, UR Negative Normal NEG [facility] Comment on above: Result Comment: L. p neumophila serogroup 1 antigen not detected. A negative result does not exclude infection with Leginella pnemophila serogroup 1 nor does it rule out other microbial-caused respiratory infections of disease caused by other serogroups of Legionella pneumophila. Test Performed by [facility] [address] [place] [address] - Released 10/06/2023 20:50 Performed By: #### L [id number] ####[facility] [id number] [place] [address] LIPID PANELon 10-06-2023 CHOL/HDL 4.5 mg/dL Normal [facility] Comment on above: Performed By: #### L [id number] #### [facility] ([facility]) [address] [place] [address] Cholesterol [Mass/Vol] 229 mg/dL High 120-200 [facility] Comment on above: Performed By: #### L [id number] #### [facility] ([facility]) [address] [place] [address] CHOLESTEROL IN LDL (MG/DL) IN SERUM OR PLASMA BY CALCULATION Normal [facility] Comment on above: Result Comment: Calc ulated LDL invalid, triglycerides >400 mg/dl Performed By: #### L [id number] #### [facility] ([facility]) [address] [place] [address] Magnesium [Mass/Vol] 469 mg/dL High 40-149 [facility] Comment on above: Result Comment: TRIG LYCERIDE REFERENCE RANGE: 20 YEARS AND OLDER CARDIOVASCULAR RISK LESS THAN 150 mg/dL LOW RISK 150 TO 199 mg/dL BORDERLINE RISK 200 mg/dL AND GREATER HIGH RISK Performed By: #### L [id number] #### [facility] ([facility]) [address] [place] [address] Magnesium [Mass/Vol] 51 mg/dL Normal 23-92 [facility] Comment on above: Performed By: #### L [id number] #### [facility] ([facility]) [address] [place] [address] NON HDL CHOL. (LDL+VLDL) [address] [facility] Comment on above: Performed By: #### L [id number] #### [facility] ([facility]) [address] [place] [address] TOTAL VLDL-C 94 mg/dL High 0-40 [facility] Comment on above: Performed By: #### L [id number] #### [facility] ([employer]) [address] [place] [address] POCT GLUCOSE METER UNSOLICIT ED RESULTSon 10-06-2023 Glucose [Mass/Vol] 276 mg/dL High 70-105 [facility] Comment on above: Order Comment: Waive d Testing in the ED is performed under the ED CLIA certificate #[id number]. Result Comment: [email or web address] Performed By: #### L [id number] #### [facility] ([employer]) [address] [place] [address] Glucose [Mass/Vol] 187 mg/dL High 70-105 [facility] Comment on above: Order Comment: Waive d Testing in the ED is performed under the ED CLIA certificate #[id number]. Result Comment: [email or web address] Performed By: #### L [id number] #### [facility] ([employer]) [address] [place] [address] Glucose [Mass/Vol] 183 mg/dL High 70-105 [facility] Comment on above: Order Comment: Waive d Testing in the ED is performed under the ED CLIA certificate #[id number]. Result Comment: [email or web address] Performed By: #### L [id number] #### [facility] ([employer]) [address] [place] [address] Glucose [Mass/Vol] 183 mg/dL High 70-105 [facility] Comment on above: Order Comment: Waive d Testing in the ED is performed under the ED CLIA certificate #[id number]. Result Comment: [email or web address] Performed By: #### L [id number] ####[facility] ([employer])[address] [place] [address] STREP PNEUMONIAE ANTIGEN, UR INEon 10-06-2023 STREPTOCOCCUS PNEUMONIAE AG PRESENCE IN URINE Negative Normal Negative [facility] Comment on above: Performed By: #### L [id number] ####[facility] ([facility])[address] [place] [address] TROPONIN Ion 10-06-2023 Troponin I.cardiac [Mass/Vol] 0.03 ng/mL Normal 0.00-0.04 [facility] Comment on above: Performed By: #### L [id number] ####[facility] ([facility])[address] [place] [address] CBCon 10-05-2023 Erythrocyte distribution width (RBC) [Ratio] 12.3 % Normal 11.5-15.0 [facility] Comment on above: Performed By: #### L [id number] #### [facility] ([facility]) [address] [place] [address] ERYTHROCYTE MEAN CORPUSCULAR HEMOGLOBIN CONCENTRATION (G/DL) BY AUTOMATED 33.8 g/dL Normal 32.0-35.0 [facility] Comment on above: Performed By: #### L [id number] #### [facility] ([facility]) [address] [place] [address] Hematocrit (Bld) [Volume fraction] 49.4 % Normal 39.0-55.0 [facility] Comment on above: Performed By: #### L [id number] #### [facility] ([facility]) [address] [place] [address] Hemoglobin (Bld) [Mass/Vol] 16.7 g/dL Normal 13.0-17.0 [facility] Comment on above: Performed By: #### L [id number] #### [facility] ([facility]) [address] [place] [address] IMMATURE PLATELET FRACTION % 11.1 % High 0.8-6.3 [facility] Comment on above: Performed By: #### L [id number] #### [facility] ([facility]) [address] [place] [address] MCH (RBC) [Entitic mass] 34.9 pg High 27.0-33.0 [facility] Comment on above: Performed By: #### L [id number] #### [facility] ([facility]) [address] [place] [address] MCV (RBC) [Entitic vol] 103.3 fL High 82.0-98.0 [facility] Comment on above: Performed By: #### L [id number] #### [facility] ([facility]) [address] [place] [address] PLATELETS (10*3/UL) IN BLOOD AUTOMATED COUNT 149 10*3/uL Low 150-400 [facility] Comment on above: Performed By: #### L [id number] #### [facility] ([facility]) [address] [place] [address] RBC (Bld) [#/Vol] 4.78 10*6/uL Normal 4.20-5.70 [facility] Comment on above: Performed By: #### L [id number] #### [facility] ([facility]) [address] [place] [address] WBC (Bld) [#/Vol] 6.46 10*3/uL Normal 4.00-10.60 [facility] Comment on above: Performed By: #### L [id number] #### [facility] ([facility]) [address] [place] [address] HEMOGLOBIN A1Con 10-05-2023 Glucose [Mass/Vol] 183 mg/dL Normal [facility] Comment on above: Performed By: #### L [id number] #### [facility] ([facility]) [address] [place] [address] HbA1c (Bld) [Mass fraction] 8.0 % High 4.0-6.0 [facility] Comment on above: Performed By: #### L [id number] #### [facility] ([facility]) [address] [place] [address] POCT GLUCOSE METER UNSOLICIT ED RESULTSon 10-05-2023 Glucose [Mass/Vol] 229 mg/dL High 70-105 [facility] Comment on above: Order Comment: Waive d Testing in the ED is performed under the ED CLIA certificate #[id number]. Result Comment: [email or web address] Performed By: #### L [id number] ####[facility] ([employer])[address] [facility] [place] [address] Covid-19 PCR ([facility])on 07-09 SARS-CoV-2 (COVID-19) RNA NIXON+probe Ql (Unsp spec) Detected Critically abnormal NOT DETECTED [facility] Comment on above: Result Comment: This test is not yet approved or cleared by the [place] FDA. When there are no FDA-approved or cleared tests available, and other criteria are met, FDA can make tests available under an emergency access mechanism called an Emergency Use Authorization (EUA). The EUA for this test is supported by the [place] [employer] Lieutenant of Health and Human Service's (HHS's) declaration [...] used). Performed By: #### A 1C #### [facility] [address] [place] [address] Dr. Bridger Aggarwal INFLUENZA A AND B AGon 08-03 [facility] SEE BELOW Normal [facility] Comment on above: Result Comment: Nega tive for Flu A protein angiten. Infection due to Flu A cannot be ruled out. Flu A angiten in the sample may be below the detection limit of the test. Performed By: #### I NFLUAB #### [facility] [address] [place] [address] Dr. Brid[facility] Normal [facility] Comment on above: Result Comment: Nega tive for Flu B protein antigen. Infection due to Flu B cannot be ruled out. Flu B antigen in the sample may be below the detection limit of the test. Performed By: #### I NFLUAB #### [facility] [address] [place] [address] Dr. Bridger Aggarwal INFLUENZA A AG Negative Normal NEGATIVE SEE COMMENT [facility] Comment on above: Performed By: #### I NFLUAB #### [facility] [address] [place] [address] Dr. Bridger Aggarwal INFLUENZA B AG Negative Normal NEGATIVE SEE COMMENT [facility] Comment on above: Performed By: #### I NFLUAB #### [facility] [address] [place] [address] Dr. Bridger Aggarwal INTERNAL CONTROLS Within Normal Limits Normal Wi thin Normal Limits [facility] Comment on above: Performed By: #### I NFLUAB #### [facility] [address] [place] [address] Dr. Bridger Aggarwal CULTURE WOUNDon 04-23-2022 CULTURE [...] F Oxacillin <=0.25 S F Normal [facility] Comment on above: Performed By: #### A 1C #### [facility] [address] [place] [address] Dr. Bridger Aggarwal Covid-19 PCR ([facility])on 03-09 SARS-CoV-2 (COVID-19) RNA NIXON+probe Ql (Unsp spec) Not detected Normal NOT DETECTED [facility] Comment on above: Result Comment: This test is not yet approved or cleared by the [place] FDA. When there are no FDA-approved or cleared tests available, and other criteria are met, FDA can make tests available under an emergency access mechanism called an Emergency Use Authorization (EUA). The EUA for this test is supported by the [place] Lieutenant of Health and Human Service's (HHS's) declaration [...] SARS-CoV-2. Performed By: #### A 1C #### [facility] [address] [place] [address] Dr. Bridger Aggarwal Covid-19 PCR ([facility])on SARS-CoV-2 (COVID-19) RNA NIXON+probe Ql (Unsp spec) Not detected Normal NOT DETECTED [facility] Comment on above: Result [...] for this test is supported by the [place] Lieutenant of Health and Human Service's declaration that [...] used). Performed By: #### A 1C #### [facility] [address] [place] [address] Dr. Bridger Aggarwal T4 LABCORPon 01-01-2022 T4 [Mass/Vol] 4.7 ug/dL Normal 4.5-12.0 [facility] Comment on above: Performed By: #### A 1C #### [facility] [address] [place] [address] Dr. Bridger Aggarwal FREE THYROXINE INDEX T7on FTI 1.69 Normal 1.30-4.50 [facility] Comment on above: Performed By: #### A 1C #### [facility] [address] [place] [address] Dr. Bridger Aggarwal T3U 36.0 % Normal 33.0-40.0 [facility] Comment on above: Performed By: #### A 1C #### [facility] [address] [place] [address] Dr. Bridger Aggarwal T4 [Mass/Vol] 4.70 ug/dL Normal 4.50-12.10 [facility] Comment on above: Performed By: #### A 1C #### [facility] [address] [place] [address] Dr. Bridger Aggarwal TSHon 12-28-2021 TSH 0.969 uIU/mL Normal 0.358-3.740 [facility] Comment on above: Performed By: #### A 1C #### [facility] [address] [place] [address] Dr. Bridger Aggarwal TSH RANGE SEE BELOW Normal [facility] Comment on above: Result Comment: <0.3 4 UIU/ml HYPERTHYROID 0.34-5.60 UIU/ml EUTHYROID >5.60 UIU/ml HYPOTHYROID Performed By: #### A 1C #### [facility] [address] [place] [address] Dr. Bridger Aggarwal CBC AUTO DIFFon 12-26-2021 BASO # 0.0 103/ul Normal 0.0-0.1 [facility] Comment on above: Performed By: #### C BC #### [facility] [address] [place] [address] Dr. Bridger Aggarwal Basophils/100 WBC (Bld) 0.4 % Normal 0.2-2.0 [facility] Comment on above: Performed By: #### C BC #### [facility] [address] [place] [address] Dr. Bridger Aggarwal EO # 0.1 103/ul Normal 0.0-0.7 [facility] Comment on above: Performed By: #### C BC #### [facility] [address] [place] [address] Dr. Bridger Aggarwal Eosinophils/100 WBC (Bld) 0.6 % Critically low 0.9-7.0 [facility] Comment on above: Performed By: #### C BC #### [facility] [address] [place] [address] Dr. Bridger Aggarwal Erythrocyte distribution width (RBC) [Ratio] 12.0 % Normal 11.0-15.0 [facility] Comment on above: Performed By: #### C BC #### [facility] [address] [place] [address] Dr. Bridger Aggarwal Hematocrit (Bld) [Volume fraction] 44.9 % Normal 42.0-54.0 [facility] Comment on above: Performed By: #### C BC #### [facility] [address] [place] [address] Dr. Bridger Aggarwal Hemoglobin (Bld) [Mass/Vol] 15.4 g/dL Normal 14.0-18.0 [facility] Comment on above: Performed By: #### C BC #### [facility] [address] [place] [address] Dr. Bridger Aggarwal IG # 0.03 10e3/ul Normal 0.00-0.03 [facility] Comment on above: Performed By: #### C BC #### [facility] [address] [place] [address] Dr. Bridger Aggarwal IG % 0.3 % Normal 0.0-0.5 [facility] Comment on above: Performed By: #### C BC #### [facility] [address] [place] [address] Dr. Bridger Aggarwal LYMPH # 1.5 103/ul Normal 1.2-3.8 [facility] Comment on above: Performed By: #### C BC #### [facility] [address] [place] [address] Dr. Bridger Aggarwal Lymphocytes/100 WBC (Bld) 14.2 % Critically low 20.5-60.0 [facility] Comment on above: Performed By: #### C BC #### [facility] [address] [place] [address] Dr. Bridger Aggarwal MANUAL DIFF REQ NO Normal [facility] Comment on above: Performed By: #### C BC #### [facility] [address] [place] [address] Dr. Bridger Aggarwal MCH (RBC) [Entitic mass] 34.2 pg Critically high 25.9-34.0 [facility] Comment on above: Performed By: #### C BC #### [facility] [address] [place] [address] Dr. Bridger Aggarwal MCHC (RBC) [Mass/Vol] 34.3 g/dL Normal 29.9-35.2 [facility] Comment on above: Performed By: #### C BC #### [facility] [address] [place] [address] Dr. Bridger Aggarwal MCV (RBC) [Entitic vol] 99.8 fL Critically high 80.0-94.0 [facility] Comment on above: Performed By: #### C BC #### [facility] [address] [place] [address] Dr. Bridger Aggarwal MONO # 0.7 103/ul Normal 0.3-0.8 [facility] Comment on above: Performed By: #### C BC #### [facility] [address] [place] [address] Dr. Bridger Aggarwal Monocytes/100 WBC (Bld) 6.3 % Normal 1.7-12.0 [facility] Comment on above: Performed By: #### C BC #### [facility] [address] [place] [address] Dr. Bridger Aggarwal NEUT # 8.2 103/ul Critically high 1.4-6.5 [facility] Comment on above: Performed By: #### C BC #### [facility] [address] [place] [address] Dr. Bridger Aggarwal Neutrophils/100 WBC (Bld) 78.2 % Critically high 43.0-75.0 [facility] Comment on above: Performed By: #### C BC #### [facility] [address] [place] [address] Dr. Bridger Aggarwal Platelet mean volume (Bld) [Entitic vol] 9.6 fL Normal 9.5-13.5 [facility] Comment on above: Performed By: #### C BC #### [facility] [address] [place] [address] Dr. Bridger Aggarwal PLT 247 103/ul Normal 150-450 [facility] Comment on above: Performed By: #### C BC #### [facility] [address] [address] [address] Bridger Aggarwal RBC 4.50 106/ul Critically low 4.70-6.10 [facility] Comment on above: Performed By: #### C BC #### [facility] [address] [place] [address] Dr. Bridger Aggarwal WBC 10.5 103/ul Normal 4.0-11.0 [facility] Comment on above: Performed By: #### C BC #### [facility] [address] [place] [address] HEAD WO CONon [...] JACOB LALA Date: 2021-12-26 13:30 Normal [facility] PROF CHEM 8 (BAS METB)on Anion gap [Moles/Vol] 17.1 mmol/L Normal [facility] Comment on above: Performed By: #### A 1C #### [facility] [address] [place] [address] Dr. Bridger Aggarwal Calcium [Mass/Vol] 9.4 mg/dL Normal 8.5-10.1 [facility] Comment on above: Performed By: #### A 1C #### [facility] [address] [place] [address] Dr. Bridger Aggarwal Chloride [Moles/Vol] 97 mmol/L Critically low 98-107 [facility] Comment on above: Performed By: #### A 1C #### [facility] [address] [place] [address] Dr. Bridger Aggarwal CO2 [Moles/Vol] 20.6 mmol/L Critically low 21.0-32.0 [facility] Comment on above: Performed By: #### A 1C #### [facility] [address] [place] [address] Dr. Bridger Aggarwal Creatinine [Mass/Vol] 0.96 mg/dL Normal 0.70-1.30 [facility] Comment on above: Performed By: #### A 1C #### [facility] [address] [place] [address] Dr. Bridger Aggarwal EGFR-AF TUVALUAN >60 Normal >=60 [facility] Comment on above: Performed By: #### A 1C #### [facility] [address] [place] [address] Dr. Bridger Aggarwal EGFR-NON AF TUVALUAN >60 Normal >=60 [facility] Comment on above: Performed By: #### A 1C #### [facility] [address] [place] [address] Dr. Bridger Aggarwal Glucose [Mass/Vol] 216 mg/dL Critically high 74-106 [facility] Comment on above: Performed By: #### A 1C #### [facility] [address] [place] [address] Dr. Bridger Aggarwal Potassium [Moles/Vol] 3.7 mmol/L Normal 3.5-5.1 [facility] Comment on above: Performed By: #### A 1C #### [facility] [address] [place] [address] Dr. Bridger Aggarwal Sodium [Moles/Vol] 131 mmol/L Critically low 136-145 [facility] Comment on above: Performed By: #### A 1C #### [facility] [address] [place] [address] Dr. Bridger Aggarwal Urea nitrogen [Mass/Vol] 26.0 mg/dL Critically high 7.0-18.0 [facility] Comment on above: Performed By: #### A 1C #### [facility] [address] [place] [address] Dr. Bridger Aggarwal Urea nitrogen/Creatinine [Mass ratio] 27.1 mg/mg Normal [facility] Comment on above: Performed By: #### A 1C #### [facility] [address] [place] [address] Dr. Bridger Aggarwal CBC AUTO DIFFon 12-18-2021 BASO # 0.0 103/ul Normal 0.0-0.1 [facility] Comment on above: Performed By: #### A 1C #### [facility] [address] [place] [address] Dr. Bridger Aggarwal Basophils/100 WBC (Bld) 0.4 % Normal 0.2-2.0 [facility] Comment on above: Performed By: #### A 1C #### [facility] [address] [place] [address] Dr. Bridger Aggarwal EO # 0.1 103/ul Normal 0.0-0.7 [facility] Comment on above: Performed By: #### A 1C #### [facility] [address] [place] [address] Dr. Bridger Aggarwal Eosinophils/100 WBC (Bld) 1.2 % Normal 0.9-7.0 [facility] Comment on above: Performed By: #### A 1C #### [facility] [address] [place] [address] Dr. Bridger Aggrawal Erythrocyte distribution width (RBC) [Ratio] 12.5 % Normal 11.0-15.0 [facility] Comment on above: Performed By: #### A 1C #### [facility] [address] [place] [address] Dr. Bridger Aggarwal Hematocrit (Bld) [Volume fraction] 45.9 % Normal 42.0-54.0 [facility] Comment on above: Performed By: #### A 1C #### [facility] [address] [place] [address] Dr. Bridger Aggarwal Hemoglobin (Bld) [Mass/Vol] 15.8 g/dL Normal 14.0-18.0 [facility] Comment on above: Performed By: #### A 1C #### [facility] [address] [place] [address] Dr. Bridger Aggarwal IG # 0.04 10e3/ul Critically high 0.00-0.03 [facility] Comment on above: Performed By: #### A 1C #### [facility] [address] [place] [address] Dr. Bridger Aggarwal IG % 0.5 % Normal 0.0-0.5 [facility] Comment on above: Performed By: #### A 1C #### [facility] [address] [place] [address] Dr. Bridger Aggarwal LYMPH # 1.7 103/ul Normal 1.2-3.8 [facility] Comment on above: Performed By: #### A 1C #### [facility] [address] [place] [address] Dr. Bridger Aggarwal Lymphocytes/100 WBC (Bld) 22.3 % Normal 20.5-60.0 [facility] Comment on above: Performed By: #### A 1C #### [facility] [address] [place] [address] Dr. Bridger Aggarwal MANUAL DIFF REQ NO Normal [facility] Comment on above: Performed By: #### A 1C #### [facility] [address] [place] [address] Dr. Bridger Aggarwal MCH (RBC) [Entitic mass] 34.3 pg Critically high 25.9-34.0 [facility] Comment on above: Performed By: #### A 1C #### [facility] [address] [place] [address] Dr. Bridger Aggarwal MCHC (RBC) [Mass/Vol] 34.4 g/dL Normal 29.9-35.2 [facility] Comment on above: Performed By: #### A 1C #### [facility] Laboratory [address] [place] [address] Dr. Bridger Aggarwal MCV (RBC) [Entitic vol] 99.6 fL Critically high 80.0-94.0 [facility] Comment on above: Performed By: #### A 1C #### [facility] [address] [place] [address] Dr. Bridger Aggarwal MONO # 0.7 103/ul Normal 0.3-0.8 [facility] Comment on above: Performed By: #### A 1C #### [facility] [address] [place] [address] Dr. Bridger Aggarwal Monocytes/100 WBC (Bld) 8.6 % Normal 1.7-12.0 [facility] Comment on above: Performed By: #### A 1C #### [facility] [address] [place] [address] Dr. Bridger Aggarwal NEUT # 5.2 103/ul Normal 1.4-6.5 [facility] Comment on above: Performed By: #### A 1C #### [facility] [address] [place] [address] Dr. Bridger Aggarwal Neutrophils/100 WBC (Bld) 67.0 % Normal 43.0-75.0 [facility] Comment on above: Performed By: #### A 1C #### [facility] [address] [place] [address] Dr. Bridger Aggarwal Platelet mean volume (Bld) [Entitic vol] 9.4 fL Critically low 9.5-13.5 [facility] Comment on above: Performed By: #### A 1C #### [facility] [address] [address] [address] Bridger Aggarwal PLT 259 103/ul Normal 150-450 [facility] Comment on above: Performed By: #### A 1C #### [facility] [address] [address] [address] Bridger Aggarwal RBC 4.61 106/ul Critically low 4.70-6.10 [facility] Comment on above: Performed By: #### A 1C #### [facility] [address] [address] [address] Bridger Aggarwal WBC 7.8 103/ul Normal 4.0-11.0 [facility] Comment on above: Performed By: #### A 1C #### [facility] [address] [place] [address] Dr. Bridger Aggarwal FREE T3on 12-18-2021 FREE T3 2.71 pg/mlL Normal 2.18-3.98 [facility] Comment on above: Performed By: #### C MP, T4, FT3, TSH, LIPID #### [facility] [address] [address] [address] Bridger Aggarwal GLYCOHEMOGLOBIN A1Con 2021 ADA RECOMMENDATION SEE BELOW Normal [facility] Comment on above: Result Comment: ADA RECOMMENDED LIMIT 4.0 - 6.0 ADA THERAPEUTIC TARGET < 7.0 ACTION SUGGESTED > 7.0 Performed By: #### A 1C #### [facility] [address] [address] [address] Bridger Aggarwal Glucose [Mass/Vol] 197 mg/dL Normal [facility] Comment on above: Performed By: #### A 1C #### [facility] [address] [address] [address] Bridger Aggarwal HbA1c (Bld) [Mass fraction] 8.5 % Critically high 4.5-6.2 [facility] Comment on above: Performed By: #### A 1C #### [facility] [address] [place] [address] Dr. Bridger Aggarwal LIPID PROFILEon 12-18-2021 CHOL-HDL RATIO NORM SEE BELOW Normal [facility] Comment on above: Result Comment: 3.3 - 4.4 LOW RISK 4.4 - 7.1 AVERAGE RISK 7.1 - 11.0 MODERATE RISK >11.0 HIGH RISK Performed By: #### C MP, T4, FT3, TSH, LIPID #### [facility] [address] [address] [address] Bridger Aggarwal Cholesterol [Mass/Vol] 157 mg/dL Normal <=200 [facility] Comment on above: Performed By: #### C MP, T4, FT3, TSH, LIPID #### [facility] [address] [address] [address] Bridger Agagrwal Cholesterol in HDL [Mass/Vol] 46 mg/dL Normal 40-60 [facility] Comment on above: Performed By: #### C MP, T4, FT3, TSH, LIPID #### [facility] [address] [place] [address] Dr. Bridger Aggarwal Cholesterol in LDL [Mass/Vol] 85.8 mg/dL Normal [facility] Comment on above: Performed By: #### C MP, T4, FT3, TSH, LIPID #### [facility] [address] [address] [address] Bridger Aggarwal Cholesterol.total/C holesterol in HDL [Mass ratio] 3.4 {ratio} Normal [facility] Comment on above: Performed By: #### C MP, T4, FT3, TSH, LIPID #### [facility] [address] [place] [address] Dr. Bridger Aggarwal HDL NORMAL > or = 60 mg/dl - LO W CARDIOVASCULAR RISK <40 mg/dl - HIGH CARDIOVASCULAR RISK Normal [facility] Comment on above: Performed By: #### C MP, T4, FT3, TSH, LIPID #### [facility] [address] [place] [address] Dr. Bridger Aggarwal LDL CALC NORMAL SEE BELOW Normal [facility] Comment on above: Result Comment: <100 mg/dl OPTIMAL 100 - 129 mg/dl NEAR OR ABOVE OPTIMAL 130 - 159 mg/dl BORDERLINE HIGH 160 - 189 mg/dl HIGH >190 mg/dl VERY HIGH Performed By: #### C MP, T4, FT3, TSH, LIPID #### [facility] [address] [address] [address] Bridger Aggarwal Triglyceride [Mass/Vol] 126 mg/dL Normal <=150 [facility] Comment on above: Performed By: #### C MP, T4, FT3, TSH, LIPID #### [facility] [address] [address] [address] Bridger Aggarwal VLDL CALC 25.2 mg/dL Normal [facility] Comment on above: Performed By: #### C MP, T4, FT3, TSH, LIPID #### [facility] [address] [place] [address] Dr. Bridger Aggarwal OCC BLD IMMUNO SCREENon 12-06 OCCULT BLOOD Negative Normal NEGATIVE [facility] Comment on above: Performed By: #### O BSCRN #### [facility] [address] [place] [address] Dr. Bridger Aggarwal PROF 14(COMP METB)on 022 Albumin [Mass/Vol] 3.6 g/dL Normal 3.4-5.0 [facility] Comment on above: Performed By: #### C MP, T4, FT3, TSH, LIPID #### [facility] [address] [place] [address] Dr. Bridger Aggarwal Albumin/Globulin [Mass ratio] 0.9 {ratio} Normal [facility] Comment on above: Performed By: #### C MP, T4, FT3, TSH, LIPID #### [facility] [address] [place] [address] Dr. Bridger Aggarwal ALP [Catalytic activity/Vol] 84 U/L Normal 46-116 [facility] Comment on above: Performed By: #### C MP, T4, FT3, TSH, LIPID #### [facility] [address] [place] [address] Dr. Bridger Aggarwal ALT [Catalytic activity/Vol] 45 U/L Normal 16-63 [facility] Comment on above: Performed By: #### C MP, T4, FT3, TSH, LIPID #### [facility] [address] [place] [address] Dr. Bridger Aggarwal Anion gap [Moles/Vol] 12.1 mmol/L Normal [facility] Comment on above: Performed By: #### C MP, T4, FT3, TSH, LIPID #### [facility] [address] [place] [address] Dr. Bridger Aggarwal AST [Catalytic activity/Vol] 20 U/L Normal 15-37 [facility] Comment on above: Performed By: #### C MP, T4, FT3, TSH, LIPID #### [facility] [address] [place] [address] Dr. Bridger Aggarwal Bilirubin [Mass/Vol] 0.6 mg/dL Normal 0.2-1.0 [facility] Comment on above: Performed By: #### C MP, T4, FT3, TSH, LIPID #### [facility] [address] [place] [address] Dr. Bridger Aggarwal Calcium [Mass/Vol] 9.1 mg/dL Normal 8.5-10.1 [facility] Comment on above: Performed By: #### C MP, T4, FT3, TSH, LIPID #### [facility] [address] [place] [address] Dr. Bridger Aggarwal Chloride [Moles/Vol] 100 mmol/L Normal 98-107 [facility] Comment on above: Performed By: #### C MP, T4, FT3, TSH, LIPID #### [facility] [address] [place] [address] Dr. Bridger Aggarwal CO2 [Moles/Vol] 28.4 mmol/L Normal 21.0-32.0 [facility] Comment on above: Performed By: #### C MP, T4, FT3, TSH, LIPID #### [facility] [address] [place] [address] Dr. Bridger Aggarwal Creatinine [Mass/Vol] 0.99 mg/dL Normal 0.70-1.30 [facility] Comment on above: Performed By: #### C MP, T4, FT3, TSH, LIPID #### [facility] [address] [place] [address] Dr. Bridger Aggarwal EGFR-AF TUVALUAN >60 Normal >=60 [facility] Comment on above: Performed By: #### C MP, T4, FT3, TSH, LIPID #### [facility] [address] [place] [address] Dr. Bridger Aggarwal EGFR-NON AF TUVALUAN >60 Normal >=60 [facility] Comment on above: Performed By: #### C MP, T4, FT3, TSH, LIPID #### [facility] [address] [address] [address] Bridger Aggarwal Globulin (S) [Mass/Vol] 3.8 g/dL Normal [facility] Comment on above: Performed By: #### C MP, T4, FT3, TSH, LIPID #### [facility] [address] [place] [address] Dr. Bridger Aggarwal Glucose [Mass/Vol] 260 mg/dL Critically high 74-106 T [facility] Comment on above: Performed By: #### C MP, T4, FT3, TSH, LIPID #### [facility] [address] [place] [address] Dr. Bridger Aggarwal Potassium [Moles/Vol] 4.5 mmol/L Normal 3.5-5.1 [facility] Comment on above: Performed By: #### C MP, T4, FT3, TSH, LIPID #### [facility] [address] [place] [address] Dr. Bridger Aggarwal Protein [Mass/Vol] 7.4 g/dL Normal 6.4-8.2 [facility] Comment on above: Performed By: #### C MP, T4, FT3, TSH, LIPID #### [facility] [address] [place] [address] Dr. Bridger Aggarwal Sodium [Moles/Vol] 136 mmol/L Normal 136-145 [facility] Comment on above: Performed By: #### C MP, T4, FT3, TSH, LIPID #### [facility] [address] [place] [address] Dr. Bridger Aggarwal Urea nitrogen [Mass/Vol] 17.0 mg/dL Normal 7.0-18.0 [facility] Comment on above: Performed By: #### C MP, T4, FT3, TSH, LIPID #### [facility] [address] [address] [address] Bridger Aggarwal Urea nitrogen/Creatinine [Mass ratio] 17.2 mg/mg Normal [facility] Comment on above: Performed By: #### C MP, T4, FT3, TSH, LIPID #### [facility] [address] [place] [address] Dr. Bridger Aggarwal T4on 12-18-2021 T4 [Mass/Vol] 4.80 ug/dL Normal 4.50-12.10 [facility] Comment on above: Performed By: #### C MP, T4, FT3, TSH, LIPID #### [facility] [address] [place] [address] Dr. Bridger Aggarwal TSHon 12-18-2021 TSH 1.496 uIU/mL Normal 0.358-3.740 [facility] Comment on above: Performed By: #### C MP, T4, FT3, TSH, LIPID #### [facility] [address] [place] [address] Dr. Bridger Aggarwal TSH RANGE SEE BELOW Normal [facility] Comment on above: Result Comment: <0.3 4 UIU/ml HYPERTHYROID 0.34-5.60 UIU/ml EUTHYROID >5.60 UIU/ml HYPOTHYROID Performed By: #### C MP, T4, FT3, TSH, LIPID #### [facility] [address] [place] [address] Dr. Bridger Aggarwal Encounters Encounter Date Encounter Type Care Provider Facility Start: 12-05-2023 End: 12-05-2023 ambulatory AB [facility] Start: 10-13-2023 End: 10-13-20[facility] Start: 10-06-2023 Evaluation and management of inpatient DESTINEE COSTA [facility] Start: 10-05-2023 End: 10-09-2023 Evaluation and management of inpatient ADARSH HALL [facility] Start: 08-10-2022 End: 08-10-[address] [...] without abnormal findings DR ADARSH HALL [facility] Start: 12-18-2021 End: 12-19-[address] ADARSH HALL Facility:[facility] Start: 12-18-2021 End: 12-19-2021 Encounter for general adult medical examination without abnormal findings DR ADARSH HALL Facility:[facility] Procedures Date Procedure Procedure Detail Performing Clinician Start: 12-18-[address] GREG HALL Comment on above: Performed By: #### P [facility] #### [facility] [address] [place] [address] Dr. Bridger Aggarwal Payers Date Payer Category Payer Unknown [id number] .. [id number] 1975 Unknown [id number] 2..84 [id number] 1975 Unknown [id number] 2..84 [id number] 1973 Unknown [id number] 2.16.84 [id number] 1973 Unknown [id number] 2..84 [id number] 1973 Unknown [id number] 2.16.84 [id number] 1973 Unknown [id number] 2.16.84 [id number] 1973 Unknown [id number] 2.16.84 [id number] 1961 Private Health Insurance [id number] 1961 Unknown [id number] Clinical Notes 10-05-2023 to 12-05-2023 Note Date & Type Note Facility 12-05-2023 Note [facility] Cardiology Clinic Note Chief Complaint: Patient [...] disease- nonobstructive with sluggish coronary flow on [facility] 10/07/23 Hypertension Type 2 DM with [...] obesity, LARS, tobacco dependence intially presents to [facility] after sudden onset SOB. He woke up [...] kg/m??? P (more content not included)... [facility] 10-13-2023 Note Cardiovascular Medic [facility] SUBJECTIVE Chief Complaint Patient presents with [...] disease- nonobstructive with sluggish coronary flow on [facility] 10/07/23 Hypertension Type 2 DM with [...] obesity, LARS, tobacco dependence intially presents to [facility] after sudden onset SOB. He woke up [...] Heart failure (CMS/HCC) Coronary artery disease involving [place] coronary artery of [place] heart without angina pectoris Benign hypertensive heart [...] bedtime., Disp: (more content not included)... [facility] 10-13-2023 Note Patient here for [facility] for new onset CHF. He underwent heart cath on 10/07/[address] Herrera. Was discharged with a LifeVest. He has completely stopped smoking and drinking alcohol. Denies chest pain, SOB, palpitations, and lightheadedness/syncope. Review of Systems All other systems reviewed and are negative. [facility] 10-09-2023 Note Patient discharged v ia private ride with . Patient educated on discharge and educated on heart failure education. All questions and concerns addressed at this time. [facility] 10-09-2023 Note 10/09/23 1403 CM Interventions CM Interventions Other (Comment) Follow up appointment for GI Clinic was scheduled for patient for tomorrow, however, per Epic chart, patient has already cancelled. Dr Costa notified [facility] 10-09-2023 Note Awaiting life vest a pproval and fitting. OTM will continue to follow. 1200: Life Vest approved. Awaiting RN for fitting. [facility] 10-09-2023 Note Hospital Medicine Discharge Summary Final Discharge Diagnosis: New onset heart failure with reduced EF, 20-25%, NYHA I, with global hypokinesis NICMP Coronary artery disease- nonobstructive with sluggish coronary flow on [facility] 10/07/23 Hypertension Type 2 DM with [...] obesity, LARS, tobacco dependence intially presents to [facility] after sudden onset SOB. He woke up [...] was discharged home. Dear Dr. Rafael MD [place] is advised to follow up with you [...] Medications These medications were sent to [facility] - [place], [place] - [address] [place] [address] [place] [address] [facility] [id number] aspirin 81 mg chewable tablet atorvastatin 80 [...] 129/100, pulse (more content not included)... [facility] 10-08-2023 Note logging worker lalito valentin by Dakota, at [facility], on behalf of patient. Facesheet & cardiology progress note faxed to [facility] to initiate life ves referral. Awaiting approval / denial and next steps before patient can discharge. UPDATE: Mathematical Scientist reached out to Dakota who reports he is still waiting for insurance approval for life vest. This information was shared with physician, bedside nurse, and dialysis social worker. Dakota reports if he is approved today, he will attempt to get patient fitted for his life vest today as well. OTM team continuing to follow. [facility] 10-08-2023 Note Hospital Medicine Discharge Summary Final Discharge Diagnosis: New onset heart failure with reduced EF, 20-25%, NYHA I, with global hypokinesis NICMP Coronary artery disease- nonobstructive with sluggish coronary flow on [facility] 10/07/23 Hypertension Type 2 DM with A1C 8% Dyslipidemia Alcohol abuse Tobacco dependence Circumferential esophageal thickening-Outpatient GI Fup for concern of EGD, has hx of reflux, Cont PPI therapy Bilateral groundglass opacities and hilar lymphadenopathy. Be infectious versus inflammatory. Flu PCR and COVID-negative. Admission Diagnosis: Heart failure (CMS/[facility]) [I50.9] Hospital course: Tera Roberto is a 48 y.o. male with a PMH significant for T2DM, HTN, obesity, LARS, tobacco dependence intially presents to [facility] after sudden onset SOB. He woke up [...] Medications These medications were sent to [facility] - [place], [place] - [facility] [address], [facility] [address] aspirin 81 mg chewable tablet atorvastatin 80 [...] of di (more content not included)... [facility] 10-08-2023 Note UTP CARDIOLOGY PROGR ESS [...] lock IV AND sodium chloride CV Testing: [facility] 10/07/23: FINAL IMPRESSIONS: Angiographically nonobstructive coronary [...] beta-nabila, a (more content not included)... [facility] 10-08-2023 Note Hospital Medicine Daily Progress Note - 10/09/2023 7:16 AM; Room: [address] [place] [address] Admission: 10/05/2023 7:45 PM; Length of stay: 4 days THE HOSPITALIST TEAM PREFERS TO USE [email or web address] CHAT FOR COMMUNICATION 7AM-7PM. IF I DO NOT RESPOND WITHIN 15 MINUTES, PLEASE PAGE ME/CALL THROUGH THE WORK CHECKER. FROM 7PM-7AM, PLEASE PAGE [phone](COVR) Code Status: Full Code Barriers to Discharge: [...] Active Inpatient Problems Principal Problem: Heart failure ([facility]) Assessment and Plan Acute hypoxemic resp failure- [...] Academy of Nutrition and Dietetics and the [place] [employer] Enteral and Parenteral Nutrition, meets [...] LDL 178 10/06/2023 No results found for: [id number] , IRON , TIBC , C3 , [...] a RAA (more content not included)... [facility] 10-07-2023 Note Clinical Therapist B [facility] Intervention Note Substance Intervention: Raise the Subject: [...] intervention. Assessment completed by: DELMA Morgan [facility] 10-07-2023 Note Cardiovascular Labor atory Report [...] internal jugular vein was obtained. A 6 Urdu 11 cm sheath was inserted without difficulty. Right heart catheterization was performed using a Maria catheter via the venous sheath. Pressures were measured in the right atrium, right ventricle, pulmonary artery, and pulmonary capillary wedge positions. Oxygen saturations were obtained and cardiac output/cardiac index was calculated using the modified Suasn principle. The Maria catheter was removed. The jugular sheath was removed with application of manual pressure to achieve optimal hemostasis. Local infiltration anesthesia was achieved of the left wrist. Using a micropuncture kit, and under ultrasound-guided access of the left radial artery was obtained. A 6 Urdu glide sheath was inserted without difficulty. Bilateral [...] exertional shortness of breath, abnormal echocardiogram [facility] 10-07-2023 Note ---- Attestation signed by [...] Value Ventricular Rate 88 Atrial Rate 88 NE Interval 162 QRS DURATION 84 QT Interval 404 QTC CALCULATION(BAZETT) 488 P [place] 50 R-[place] 0 T Wave [place] 61 Impression Sinus rhythm with occasional Premature ventricular complexes Left ventricular hypertrophy ( R in aVL ) Prolonged QT Abnormal ECG No previous ECGs available Confirmed by Daily MENDEZ, L.S. (2) on 10/06/2023 11:01:33 AM Lab Results Component Value Date TROPONINI 0.03 10/06/2023 Transthoracic echo (TTE) limited Result Date: 10/06/2023 1 1 [facility] Heart Station [address] [place], [place] [phone] (fax) Echocardiogram-[facility] Name: TERA ROBERTO Study Date: 10/06/2023 10:25 AM B/P: 153 mmHg/104 mmHg HR: 96 bpm Date of : 1975 Location: [facility] Height: 69 in. Age: 48 year(s) [...] No pericardial effusion. Procedure Staff Reading Group: [facility] Referring Physician: Keith Edwards Divider Operator: Zina Altamirano [facility] Ordering Physician: DESTINEE COSTA No nuclear medicine results found for the past 12 months Relevant Imaging Results Transthoracic echo (TTE) limited 1 1 [facility] Heart Station [address] [place] [address] [phone] (fax) Echocardiogram-[facility] Name: TERA ROBERTO Study Date: 10/06/2023 10:25 AM B/P: (more content not included)... [facility] 10-07-2023 Note Clinician attempted to provide AOD brief intervention. Physician at bedside with pt. Clinician will make another attempt [facility] 10-07-2023 Note Hospital Medicine Daily Progress Note - 10/07/2023 9:30 AM; Room: [address] [place] [address] Admission: 10/05/2023 7:45 PM; Length of stay: 2 days THE HOSPITALIST TEAM PREFERS TO USE [email or web address] CHAT FOR COMMUNICATION 7AM-7PM. IF I DO NOT RESPOND WITHIN 15 MINUTES, PLEASE PAGE ME/CALL THROUGH THE WORK CHECKER. FROM 7PM-7AM, PLEASE PAGE [phone](COVR) Code Status: Full Code Barriers to Discharge: [...] Active Inpatient Problems Principal Problem: Heart failure ([facility]) Assessment and Plan Acute hypoxemic resp failure- [...] Academy of Nutrition and Dietetics and the [place] [employer] Enteral and Parenteral Nutrition, meets [...] LDL 178 10/06/2023 No results found for: [id number] , IRON , TIBC , C3 ,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
[2024-09-17] MEDS: HYDROMORPHONE HCL 0.5 MG/0.5 ML SYRINGE IV (12:31)
[2024-09-17 12:41] LABS: Glucometer 239 mg/dL (74-106)
[2024-09-17] MEDS: CANAGLIFLOZIN 100 MG TABLET 300 MG PO (12:45)
[2024-09-17] MEDS: VENLAFAXINE HCL ER 75 MG CAPSULE PO (12:45)
[2024-09-17] MEDS: INSULIN ASPART 300 UNIT/3 ML PEN SUBQ ×2 (12:46→21:41)
[2024-09-17] MEDS: SPIRONOLACTONE 25 MG TABLET 12.5 MG PO (12:46)
[2024-09-17] MEDS: TRAMADOL HCL 50 MG TABLET PO (15:15)
[2024-09-17] MEDS: TIZANIDINE HCL 4 MG TABLET PO ×2 (15:16→21:41)
[2024-09-17] MEDS: HYOSCYAMINE SULFATE 0.125 MG TAB.SUBL SL (18:27)
[2024-09-17 18:31] LABS: Glucometer 159 mg/dL (74-106)
[2024-09-17] MEDS: ACETAMINOPHEN 500 MG TABLET 1000 MG PO (19:36)
[2024-09-17 20:27] LABS: Glucometer 226 mg/dL (74-106)
[2024-09-17] MEDS: SACUBITRIL/VALSARTAN 24 MG-26 MG TABLET 2 TAB PO (21:41)
[2024-09-17] MEDS: CARVEDILOL 6.25 MG TABLET PO (21:41)
[2024-09-18] VITALS (7 sets, daily range): BP systolic 100–127; BP diastolic 62–75; PULSE 72–87; TEMP 36.3–36.7; O2SAT 94–98
[2024-09-18] MEDS: KETOROLAC TROMETHAMINE 30 MG/ML VIAL IVP ×2 (01:04→06:08)
[2024-09-18] MEDS: HYDROMORPHONE HCL 0.5 MG/0.5 ML SYRINGE IV ×2 (01:05→06:32)
[2024-09-18] MEDS: TIZANIDINE HCL 4 MG TABLET PO (05:23)
[2024-09-18] MEDS: TRAMADOL HCL 50 MG TABLET PO (05:23)
--- NOTE | 2024-09-18 06:09 | P.DS_ITS ---
DS: Providers Provider Date of admission: 09/17/24 09:50 Primary care physician: Donn Hall MD Consults: 09/17/24 08:44 Consult to Pharmacy Routine Consulting Provider: Reason for consultation: Please Carmel me when Med Rec is Updated Has provider been notified: No DS: Diagnosis Discharge Diagnosis (1) Intractable pain: (2) Multiple fractures of ribs: Plan Admission findings: Sinus tachycardia, mild elevation in blood pressure secondary to left 5th through 7th rib fractures, severe pain. Chest wall contusion resulting in left 5th through 7th rib fractures-patient mated observation for pain control, Toradol, tizanidine, Ultram, Dilaudid for breakthrough pain NIDDM-insulin sliding scale Depression-continue with home medications Hypercholesterolemia can hold hypercholesterolemia medications while he is in observation status Admission status: Patient with acute left 5th through 7th rib fractures, needing pain control, will initially place patient in observation, if medically necessary treatment will span 2 midnights will change patient to inpatient status, currently this seems unlikely ? DS: Summary Hospital Course Hospital Course: Patient admitted through the ER with multiple rib fractures 5 through seventh on the left side, this is after a fall, no syncope with a just slipped on the ice, try to get through the night without significant difficulty breathing but as pain increased he presented to emergency room due to the shortness of breath and chest pain. No other etiology found, likely related to the rib fractures and bruise of his shortness of breath, he did do well overnight with no hypoxia, plan for this morning is try patient on [place], if he tolerates that then he can be discharged to home in improving condition. Medications see list. See me in the office later this week. Status at Discharge Overall status at discharge: patient is not back to baseline Time Spent with Patient Time attestation: Total time spent providing and/or coordinating discharge services: Time spent: greater than 30 minutes Exam Constitutional Vital Signs, click to edit/add: Last Vital Signs Temp 98.1 F 09/18/24 04:00 Pulse 87 09/18/24 04:00 Resp 18 09/18/24 04:00 BP 127/65 09/18/24 04:00 Pulse Ox 97 09/18/24 04:00 O2 Del Method CPAP 09/18/24 04:00 Documenting provider has reviewed patient's vital signs: yes Common normals: apparent distress (Mild conversational dyspnea secondary to pain) Chest Common normals: inspection of chest normal; palpation of chest abnormal (Left lateral chest wall tenderness) Respiratory Common normals: no retractions, no use of accessory muscles and clear to auscultation bilaterally; abnormal respiratory effort (Mild conversational dyspnea secondary to pain) Cardio Common normals: regular rate and regular rhythm GI Common normals: Normal to inspection, nondistended, normoactive bowel sounds present DS: Data Data Completed and Pending Labs on day of discharge: Labs from last 24 hours 09/17/24 09/17/24 09/17/24 20:25 18:26 12:37 WBC RBC Hgb Hct MCV MCH MCHC RDW Plt Count MPV Neut % (Auto) Lymph % (Auto) Phelps % (Auto) Eos % (Auto) Baso % (Auto) Neut # (Auto) Lymph # (Auto) Phelps # (Auto) Eos # (Auto) Baso # (Auto) Abs Immat Gran (auto) Imm/Tot Granulo (auto) Sodium Potassium Chloride Carbon Dioxide Anion Gap BUN Creatinine Est GFR ( Amer) Est GFR (Non-Af Amer) BUN/Creatinine Ratio Glucose Calcium Troponin I High Sens POC Glucose 226 H 159 H 239 H 09/17/24 06:57 WBC 8.4 RBC 4.80 Hgb 16.5 Hct 47.2 MCV 98.3 H MCH 34.4 H MCHC 35.0 RDW 11.8 Plt Count 251 MPV 9.3 L Neut % (Auto) 79.8 H Lymph % (Auto) 11.3 L Phelps % (Auto) 7.3 Eos % (Auto) 0.8 L Baso % (Auto) 0.4 Neut # (Auto) 6.7 H Lymph # (Auto) 1.0 L Phelps # (Auto) 0.6 Eos # (Auto) 0.1 Baso # (Auto) 0.0 Abs Immat Gran (auto) 0.03 Imm/Tot Granulo (auto) 0.4 Sodium 138 Potassium 4.5 Chloride 100 Carbon Dioxide 23.1 Anion Gap 19.4 BUN 17.0 Creatinine 0.94 Est GFR ( Amer) >60 Est GFR (Non-Af Amer) >60 BUN/Creatinine Ratio 18.1 Glucose 218 H Calcium 9.4 Troponin I High Sens 15.5 POC Glucose Discharge Plan Discharge Disposition: Home, Self-Care Discharge Medications: New hydrocodone-acetaminophen 5-325 mg tablet 1 tab PO Q4H PRN (Reason: rib pain) Qty: 42 0RF Continued venlafaxine 75 mg capsule,extended release 24hr 75 mg PO DAILY simvastatin 20 mg tablet 20 mg PO DAILY glimepiride 4 mg tablet 8 mg PO DAILY pioglitazone 30 mg tablet 30 mg PO DAILY atorvastatin 80 mg tablet 80 mg PO .QHS aspirin 81 mg tablet,chewable 1 tab PO .qd Rx Instructions: WITH BREAKFAST carvedilol 6.25 mg tablet 6.25 mg PO BID dapagliflozin propanediol [Farxiga] 10 mg tablet 10 mg PO .qd sacubitril-valsartan [Entresto] 49-51 mg tablet 1 tab PO BID spironolactone 25 mg tablet 12.5 mg PO .qd Print Language: Estonian Forms: Portal Instructions Follow Up Appointments: @ 10:30am with Dr. Hall [phone]
[2024-09-18 08:00] LABS: Glucometer 174 mg/dL (74-106)
[2024-09-18] MEDS: INSULIN ASPART 300 UNIT/3 ML PEN SUBQ (08:02)
[2024-09-18] MEDS: ASPIRIN 81 MG TAB.CHEW PO (08:03)
[2024-09-18] MEDS: CANAGLIFLOZIN 100 MG TABLET 300 MG PO (08:03)
[2024-09-18] MEDS: SACUBITRIL/VALSARTAN 24 MG-26 MG TABLET 2 TAB PO (08:03)
[2024-09-18] MEDS: GLIMEPIRIDE 2 MG TABLET 8 MG PO (08:03)
[2024-09-18] MEDS: SPIRONOLACTONE 25 MG TABLET 12.5 MG PO (08:04)
[2024-09-18] MEDS: CARVEDILOL 6.25 MG TABLET PO (08:04)
[2024-09-18] MEDS: VENLAFAXINE HCL ER 75 MG CAPSULE PO (08:04)
[2024-09-18] MEDS: HYDROCODONE/ACET 5-325 MG TABLET 1 TAB PO (08:35)
--- NOTE | 2024-09-18 08:38 | CM.NOTE ---
Rounds made with Dr. Hall. Plan for discharge today. Verbalizes understanding.
--- NOTE | 2024-09-19 12:47 | CM.DCFOLLOWU ---
09/19- Readmitted to Hospital for pain control
== END 2024-09-18 11:46 | disposition home or self-care (01) ==
LOC: ER 08:24 → MS 09:56
PROVIDERS: Admitting Provider Family Medicine; Emergency Provider Emergency Medicine; PCP Family Medicine; Visit Provider Family Medicine
DX: S22.42XA Multiple fractures of ribs, left side, initial encounter for closed fracture (principal); R07.89 Other chest pain; S20.212A Contusion of left front wall of thorax, initial encounter; E11.9 Type 2 diabetes mellitus without complications; Z79.84 Long term (current) use of oral hypoglycemic drugs; F32.A Depression, unspecified; E78.00 Pure hypercholesterolemia, unspecified; W00.0XXA Fall on same level due to ice and snow, initial encounter; F17.210 Nicotine dependence, cigarettes, uncomplicated
CPT/HCPCS: 36415; 71101; 80048; 82948; 84484; 85025; 93005; 94667; 94668; 94761; 96374; 96375; 96376; 99285; 99406; G0378; J1171; J1885; J2270; J2360; J2919

== ENCOUNTER 2024-09-18 19:56 | Observation (INO) | payer OTHER, SELFPAY ==
--- OUTSIDE RECORDS SUMMARY | 2024-09-18 20:01 | XMS_ITS | CCD ---
Author Organization [facility] Care Team Providers Care Oracle Database Architect Name Role Phone RAFAEL, DR ALTAMIRANO Admitting [...] disease (2 sources) Atherosclerotic heart disease of [place] coronary artery without angina pectoris; Translations: [Atherosclerotic heart disease of [place] coronary artery without angina pectoris] Onset: 10-13-2023 [...] Range Facility Office Visiton 12-05-2023 Follow-up visit [id number] Tera Roberto 1975 M Date Provider Department Center 12/05/2023 YAKELIN MICHELLE TATE Abreu Family History Problem Relation Age of Onset Heart attack Maternal Grandfather Family Status - Relation Status Age at Maternal Grandfather Level of Service:23234 AL OFFICE/OUTPATIENT ESTABLISHED MOD MDM 30 MIN Normal [facility] 36on 12-01-2023 36 Patient informed. Normal [facility] 36on 11-29-2023 36 Please let him know his EF improved to 55%. He no longer needs to wear the LifeVest. Follow-up as scheduled. Thanks! Normal [facility] Telephoneon 11-29-2023 Telephone [phone] Tera Roberto 1975 M Date Provider Department Center 11/29/2023 ZAKC OLSON Family History Problem Relation Age of Onset Heart attack Maternal Grandfather Family Status - Relation Status Age at Maternal Grandfather Normal [facility] 36on 11-02-2023 36 2nd attempt: LMOM Normal [facility] Follow-Upon 10-13-2023 Follow-Up [id number] Tera Roberto 1975 [facility] Provider Department Center 10/13/2023 [id number]-[id number] MONTGOMERY TATE [facility] Family History Problem Relation Age of Onset Heart attack Maternal Grandfather Family Status - Relation Status Age at Maternal Grandfather Level of Service:08271 AL OFFICE/OUTPATIENT ESTABLISHED MOD MDM 30 MIN Reason for Visit and Comments: Hospital Follow-up [832] Congestive Heart Failure [127] Hypertension [879258] [facility] 10-11-2023 36 Called patient and left a message to call me to schedule a pulmonary hospital follow up with either Dr. Valenzuela or Dr. Diamond. [facility] 10-10-2023 36 Discharge date: Call date: [...] was very happy with his experience at [facility] and he wanted to thank everyone for saving his life. [facility] Documentationon 10-10-2023 Documentation [id number] CamilleTera 1975 M Date Provider Department Center 10/10/202337219-[id number] ACEVEDO [facility] No family history on file Reason for Visit and Comments: HF inpatient satisfaction survey sent. [Other] [facility] Telephoneon 10-10-2023 Telephone [phone] CamilleTera 1975 M Date Provider Department Center 10/10/202317285-[id number] ACEVEDO [facility] No family history on file [facility] 3010-09-2023 30 The patient is Moderately [...] and behaviors that affect risk of falls Dewitt fall precautions as indicated by assessment Problem: [...] the next 3 months Outcome: Progressing Normal [facility] BASIC METABOLIC PANELon 03-0 Anion gap [Moles/Vol] 12 mmol/L Normal 7-20 [facility] Comment on above: Performed By: #### L [id number] ####[facility] (BEAKER)[address] [place] [address] Calcium [Mass/Vol] 8.9 mg/dL Normal 8.6-10.[address] [facility] Comment on above: Performed By: #### L [id number] ####[facility] (BEAKER)[address] [facility] [place] [address] Chloride [Moles/Vol] 104 mmol/L Normal 98-107 [facility] Comment on above: Performed By: #### L [id number] ####[facility] (BEAKER)[address] [facility] [place] [address] CO2 [Moles/Vol] 25 mmol/L Normal 21-31 [facility] Comment on above: Performed By: #### L [id number] ####[facility] (BEAKER)[address] [place] [address] Creatinine [Mass/Vol] 0.89 mg/dL Normal 0.70-1.30 [facility] Comment on above: Performed By: #### L [id number] ####[facility] ([facility])[address] [place] [address] GLOMERULAR FILTRATION RATE ML/MIN/1.73 SQ M.PREDICTED 104.4 mL/min/1.73m*2 Normal >60.0 [facility] Comment on above: Result Comment: The [facility]???s estimated glomerular filtration rate (eGFR) will no [...] of individuals. Performed By: #### L [id number] ####[facility] ([facility])[address] [place] [address] Glucose [Mass/Vol] 119 mg/dL High 70-[address] [facility] Comment on above: Performed By: #### L [id number] ####[facility] ([facility])[address] [place] [address] Potassium [Moles/Vol] 4.1 mmol/L Normal 3.5-5.1 [facility] Comment on above: Performed By: #### L [id number] ####[facility] ([facility])[address] [place] [address] Sodium [Moles/Vol] 137 mmol/L Normal 136-[address] [facility] Comment on above: Performed By: #### L [id number] ####[facility] ([facility])[address] [place] [address] Urea nitrogen [Mass/Vol] 29 mg/dL High 7-25 [facility] Comment on above: Performed By: #### L [id number] ####[facility] ([facility])[address] [place] [address] UREA NITROGEN/CREATININE (MASS RATIO) IN SER/PLAS 32.6 Normal [facility] Comment on above: Performed By: #### L [id number] ####[facility] ([facility])[address] [place] [address] CBC WITH AUTO DIFFERENTIALon 10-09-2023 Basophils (Bld) [#/Vol] 0.04 10*3/uL Normal 0.00-0.20 [facility] Comment on above: Performed By: #### L [id number] ####[facility] ([facility])[address] [place] [address] Basophils/100 WBC (Bld) 0.7 % Normal 0.0-1.0 [facility] Comment on above: Performed By: #### L [id number] ####[facility] ([facility])[address] [place] [address] Eosinophils (Bld) [#/Vol] 0.12 10*3/uL Normal 0.00-0.50 [facility] Comment on above: Performed By: #### L [id number] ####[facility] ([facility])[address] [place] [address] Eosinophils/100 WBC (Bld) 2.1 % Normal 0.0-6.0 [facility] Comment on above: Performed By: #### L [id number] ####[facility] ([facility])[address] [place] [address] Erythrocyte distribution width (RBC) [Ratio] 12.0 % Normal 11.5-15.0 [facility] Comment on above: Performed By: #### L [id number] ####[facility] ([facility])[address] [place] [address] ERYTHROCYTE MEAN CORPUSCULAR HEMOGLOBIN CONCENTRATION (G/DL) BY AUTOMATED 34.2 g/dL Normal 32.0-35.0 [facility] Comment on above: Performed By: #### L [id number] ####[facility] (BEAKER)[address] [place] [address] Hematocrit (Bld) [Volume fraction] 47.7 % Normal 39.0-55.0 [facility] Comment on above: Performed By: #### L [id number] ####[facility] (BEAKER)[address] [place] [address] Hemoglobin (Bld) [Mass/Vol] 16.3 g/dL Normal 13.0-17.0 [facility] Comment on above: Performed By: #### L [id number] ####[facility] (BEAKER)[address] [place] [address] Immature granulocytes (Bld) [#/Vol] 0.03 10*3/uL Normal 0.00-0.20 [facility] Comment on above: Performed By: #### L [id number] ####[facility] (BEAKER)[address] [place] [address] Immature granulocytes/100 WBC (Bld) 0.5 % Normal 0.0-1.0 [facility] Comment on above: Performed By: #### L [id number] ####[facility] (BEAKER)[address] [place] [address] Lymphocytes (Bld) [#/Vol] 1.51 10*3/uL Normal 1.20-4.00 [facility] Comment on above: Performed By: #### L [id number] ####[facility] (BEAKER)[address] [place] [address] Lymphocytes/100 WBC (Bld) 26.2 % Normal 20.0-45.0 [facility] Comment on above: Performed By: #### L [id number] ####[facility] (BEAKER)[address] [place] [address] MCH (RBC) [Entitic mass] 35.0 pg High 27.0-33.0 [facility] Comment on above: Performed By: #### L [id number] ####[facility] (BEAKER)[address] [place] [address] MCV (RBC) [Entitic vol] 102.4 fL High 82.0-98.0 [facility] Comment on above: Performed By: #### L [id number] ####[facility] (BEAKER)[address] [place] [address] Monocytes (Bld) [#/Vol] 0.80 10*3/uL Normal 0.10-1.00 [facility] Comment on above: Performed By: #### L [id number] ####[facility] (AKER)[address] [place] [address] Monocytes/100 WBC (Bld) 13.9 % High 5.0-12.0 [facility] Comment on above: Performed By: #### L [id number] ####[facility] (AKER)[address] [place] [address] Neutrophils (Bld) [#/Vol] 3.26 10*3/uL Normal 1.60-7.60 [facility] Comment on above: Performed By: #### L [id number] ####[facility] (AKER)[address] [place] [address] Neutrophils/100 WBC (Bld) 56.6 % Normal 40.0-72.0 [facility] Comment on above: Performed By: #### L [id number] ####[facility] (BEAKER)[address] [place] [address] NRBC (PER 100 WBCS) BY AUTOMATED COUNT 0.0 % Normal 0 [facility] Comment on above: Performed By: #### L [id number] ####[facility] (BEAKER)[address] [place] [address] PLATELETS (10*3/UL) IN BLOOD AUTOMATED COUNT 181 10*3/uL Normal 150-400 [facility] Comment on above: Performed By: #### L [id number] ####[facility] (BEAKER)[address] [place] [address] RBC (Bld) [#/Vol] 4.66 10*6/uL Normal 4.20-5.70 [facility] Comment on above: Performed By: #### L [id number] ####[facility] ([facility])[address] [place] [address] WBC (Bld) [#/Vol] 5.76 10*3/uL Normal 4.00-10.60 [facility] Comment on above: Performed By: #### L [id number] ####[facility] ([facility])[address] [place] [address] MAGNESIUMon 10-09-2023 Magnesium [Mass/Vol] 2.1 mg/dL Normal 1.9-2.7 [facility] Comment on above: Performed By: #### L [id number] #### [facility] ([facility]) [address] [place] [address] POCT GLUCOSE METER UNSOLICIT ED RESULTSon 10-09-2023 Glucose [Mass/Vol] 160 mg/dL High 70-[address] [facility] Comment on above: Order Comment: Waive d Testing in the ED is performed under the ED CLIA certificate #[id number]. Result Comment: [email or web address] Performed By: #### L [id number] ####[facility] ([facility])[address] [address] Glucose [Mass/Vol] 148 mg/dL High 70-[address] [facility] Comment on above: Order Comment: Waive d Testing in the ED is performed under the ED CLIA certificate #[id number]. Result Comment: [email or web address] Performed By: #### L [id number] ####[facility] ([facility])[address] [place] [address] Glucose [Mass/Vol] 146 mg/dL High 70-[address] [facility] Comment on above: Order Comment: Waive d Testing in the ED is performed under the ED CLIA certificate #[id number]. Result Comment: [email or web address] Performed By: #### L [id number] ####[facility] ([facility])[address] [place] [address] 30on 10-08-2023 30 The patient is Moderately [...] and behaviors that affect risk of falls Dewitt fall precautions as indicated by assessment Educate [...] and prevent overall improvement and discharge Normal [facility] 30 The patient is Moderately Stable - [...] and behaviors that affect risk of falls Dewitt fall precautions as indicated by assessment Problem: [...] the next 3 months Outcome: Progressing Normal [facility] 30 The patient is Moderately Stable - [...] and behaviors that affect risk of falls Dewitt fall precautions as indicated by assessment Educate [...] conditions affect the heart Outcome: Progressing Normal [facility] BASIC METABOLIC PANELon 03-0 Anion gap [Moles/Vol] 15 mmol/L Normal 7-20 [facility] Comment on above: Performed By: #### L [id number] #### [facility] (BEAKER) [address] [place] [address] Calcium [Mass/Vol] 9.0 mg/dL Normal 8.6-10.[address] [facility] Comment on above: Performed By: #### L [id number] #### [facility] (BEAKER) [address] [place] [address] Chloride [Moles/Vol] 101 mmol/L Normal 98-107 [facility] Comment on above: Performed By: #### L [id number] #### [facility] (BEAKER) [address] [place] [address] CO2 [Moles/Vol] 25 mmol/L Normal 21-31 [facility] Comment on above: Performed By: #### L [id number] #### [facility] (BEAKER) [address] [place] [address] Creatinine [Mass/Vol] 1.01 mg/dL Normal 0.70-1.30 [facility] Comment on above: Performed By: #### L [id number] #### [facility] [address] [place] [address] GLOMERULAR FILTRATION RATE ML/MIN/1.73 SQ M.PREDICTED 90.6 mL/min/1.73m*2 Normal >60.0 [facility] Comment on above: Result Comment: The [facility]???s estimated glomerular filtration rate (eGFR) will no [...] individuals. Performed By: #### L [id number] #### [facility] ([facility]) [address] [place] [address] Glucose [Mass/Vol] 160 mg/dL High 70-[address] [facility] Comment on above: Performed By: #### L [id number] #### [facility] ([facility]) [address] [place] [address] Potassium [Moles/Vol] 4.1 mmol/L Normal 3.5-5.1 [facility] Comment on above: Performed By: #### L [id number] #### [facility] ([facility]) [address] [place] [address] Sodium [Moles/Vol] 137 mmol/L Normal 136-[address] [facility] Comment on above: Performed By: #### L [id number] #### [facility] ([facility]) [address] [place] [address] Urea nitrogen [Mass/Vol] 34 mg/dL High 7-25 [facility] Comment on above: Performed By: #### L [id number] #### [facility] ([facility]) [address] [place] [address] UREA NITROGEN/CREATININE (MASS RATIO) IN SER/PLAS 33.7 Normal [facility] Comment on above: Performed By: #### L [id number] #### [facility] ([facility]) [address] [place] [address] CBC WITH AUTO DIFFERENTIALon 10-08-2023 Basophils (Bld) [#/Vol] 0.06 10*3/uL Normal 0.00-0.20 [facility] Comment on above: Performed By: #### L [id number] #### [facility] ([facility]) [address] [place] [address] Basophils/100 WBC (Bld) 1.0 % Normal 0.0-1.0 [facility] Comment on above: Performed By: #### L [id number] #### [facility] ([facility]) [address] [place] [address] Eosinophils (Bld) [#/Vol] 0.12 10*3/uL Normal 0.00-0.50 [facility] Comment on above: Performed By: #### L [id number] #### [facility] (BEAKER) [address] [place] [address] Eosinophils/100 WBC (Bld) 2.0 % Normal 0.0-6.0 [facility] Comment on above: Performed By: #### L [id number] #### [facility] [address] [place] [address] Erythrocyte distribution width (RBC) [Ratio] 12.2 % Normal 11.5-15.0 [facility] Comment on above: Performed By: #### L [id number] #### [facility] [address] [address] ERYTHROCYTE MEAN CORPUSCULAR HEMOGLOBIN CONCENTRATION (G/DL) BY AUTOMATED 33.5 g/dL Normal 32.0-35.0 [facility] Comment on above: Performed By: #### L [id number] #### [facility] [address] [place] [address] Hematocrit (Bld) [Volume fraction] 48.0 % Normal 39.0-55.0 [facility] Comment on above: Performed By: #### L [id number] #### [facility] (BEAKER) [address] [place] [address] Hemoglobin (Bld) [Mass/Vol] 16.1 g/dL Normal 13.0-17.0 [facility] Comment on above: Performed By: #### L [id number] #### [facility] (BEAKER) [address] [place] [address] Immature granulocytes (Bld) [#/Vol] 0.02 10*3/uL Normal 0.00-0.20 [facility] Comment on above: Performed By: #### L [id number] #### [facility] (BEAKER) [address] [address] Immature granulocytes/100 WBC (Bld) 0.3 % Normal 0.0-1.0 [facility] Comment on above: Performed By: #### L [id number] #### [facility] ([facility]) [address] [place] [address] Lymphocytes (Bld) [#/Vol] 1.47 10*3/uL Normal 1.20-4.00 [facility] Comment on above: Performed By: #### L [id number] #### [facility] ([facility]) [address] [facility] [place] [address] Lymphocytes/100 WBC (Bld) 24.6 % Normal 20.0-45.0 [facility] Comment on above: Performed By: #### L [id number] #### [facility] ([facility]) [address] [facility] [place] [address] MCH (RBC) [Entitic mass] 34.8 pg High 27.0-33.0 [facility] Comment on above: Performed By: #### L [id number] #### [facility] ([facility]) [address] [place] [address] MCV (RBC) [Entitic vol] 103.9 fL High 82.0-98.0 [facility] Comment on above: Performed By: #### L [id number] #### [facility] ([facility]) [address] [facility] [place] [address] Monocytes (Bld) [#/Vol] 0.85 10*3/uL Normal 0.10-1.00 [facility] Comment on above: Performed By: #### L [id number] #### [facility] ([facility]) [address] [place] [address] Monocytes/100 WBC (Bld) 14.2 % High 5.0-12.0 [facility] Comment on above: Performed By: #### L [id number] #### [facility] ([facility]) [address] [place] [address] Neutrophils (Bld) [#/Vol] 3.46 10*3/uL Normal 1.60-7.60 [facility] Comment on above: Performed By: #### L [id number] #### [facility] ([facility]) [address] [place] [address] Neutrophils/100 WBC (Bld) 57.9 % Normal 40.0-72.0 [facility] Comment on above: Performed By: #### L [id number] #### [facility] ([facility]) [address] [place] [address] NRBC (PER 100 WBCS) BY AUTOMATED COUNT 0.0 % Normal 0 [facility] Comment on above: Performed By: #### L [id number] #### [facility] ([facility]) [address] [place] [address] PLATELETS (10*3/UL) IN BLOOD AUTOMATED COUNT 196 10*3/uL Normal 150-400 [facility] Comment on above: Performed By: #### L [id number] #### [facility] ([facility]) [address] [place] [address] RBC (Bld) [#/Vol] 4.62 10*6/uL Normal 4.20-5.70 [facility] Comment on above: Performed By: #### L [id number] #### [facility] ([facility]) [address] [place] [address] WBC (Bld) [#/Vol] 5.98 10*3/uL Normal 4.00-10.60 [facility] Comment on above: Performed By: #### L [id number] #### [facility] ([facility]) [address] [place] [address] POCT GLUCOSE METER UNSOLICIT ED RESULTSon 10-08-2023 Glucose [Mass/Vol] 171 mg/dL High 70-[address] [facility] Comment on above: Order Comment: Waive d Testing in the ED is performed under the ED CLIA certificate #[id number]. Result Comment: [email or web address] Performed By: #### L [id number] ####[facility] ([facility])[address] [place] [address] Glucose [Mass/Vol] 128 mg/dL High 70-[address] [facility] Comment on above: Order Comment: Waive d Testing in the ED is performed under the ED CLIA certificate #[id number]. Result Comment: [email or web address] Performed By: #### L [id number] ####[facility] (BEAKER)[address] [address] Glucose [Mass/Vol] 170 mg/dL High 70-[address] [facility] Comment on above: Order Comment: Waive d Testing in the ED is performed under the ED CLIA certificate #[id number]. Result Comment: [email or web address] Performed By: #### L [id number] ####[facility] (BEAKER)[address] [address] Glucose [Mass/Vol] 174 mg/dL High 70-[address] [facility] Comment on above: Order Comment: Waive d Testing in the ED is performed under the ED CLIA certificate #[id number]. Result Comment: [email or web address] Performed By: #### L [id number] ####[facility] (BEAKER)[address] [address] 30on 10-07-2023 30 The patient is Moderately [...] and behaviors that affect risk of falls Dewitt fall precautions as indicated by assessment Educate [...] the next 3 months Outcome: Progressing Normal [facility] Og 10-07-2023 SAPNAS -- Attestation signed by Yakelin Herrera MD at 10/07/2023 11:02 AM Yakelin Herrera MD, MPH, [facility], [facility], [facility] Interventional Cardiology Pager Email: [email or web address] Patient: Tera Roberto Procedure Information Date/Time: 10/07/23 1700 Procedures: Coronary angiography Right heart cath Location: [facility] 3 / [facility] (Cath) Providers: Yakelin Herrera MD Clinical information reviewed: Allergies Physical Exam Airway Mallampati: III TM distance: >3 FB Neck ROM: full Cardiovascular Rhythm: regular Rate: normal Dental Pulmonary Abdominal Anesthesia Plan ASA 3 Anesthetic plan and risks discussed with patient. Use of blood products discussed with patient who. Plan discussed with attending. Additional Equipment Requests Normal [facility] BASIC METABOLIC PANELon 03-0 Anion gap [Moles/Vol] 14 mmol/L Normal 7-20 [facility] Comment on above: Performed By: #### L [id number] #### [facility] (BEAKER) [address] [place] [address] Calcium [Mass/Vol] 9.5 mg/dL Normal 8.6-10.[address] [facility] Comment on above: Performed By: #### L [id number] #### [facility] (BEAKER) [address] [place] [address] Chloride [Moles/Vol] 101 mmol/L Normal 98-107 [facility] Comment on above: Performed By: #### L [id number] #### [facility] (BEAKER) [address] [place] [address] CO2 [Moles/Vol] 26 mmol/L Normal 21-31 [facility] Comment on above: Performed By: #### L [id number] #### [facility] ([facility]) [address] [place] [address] Creatinine [Mass/Vol] 0.96 mg/dL Normal 0.70-1.30 [facility] Comment on above: Performed By: #### L [id number] #### [facility] ([facility] [place]) [address] [place] [address] GLOMERULAR FILTRATION RATE ML/MIN/1.73 SQ M.PREDICTED 96.3 mL/min/1.73m*2 Normal >60.0 [facility] Comment on above: Result Comment: [facility]???s estimated glomerular filtration rate (eGFR) will no [...] individuals. Performed By: #### L [id number] #### [facility] ([facility] [place]) [address] [place] [address] Glucose [Mass/Vol] 208 mg/dL High 70-[address] [facility] Comment on above: Performed By: #### L [id number] #### [facility] ([facility]) [address] [address] Potassium [Moles/Vol] 3.9 mmol/L Normal 3.5-5.1 [facility] Comment on above: Performed By: #### L [id number] #### [facility] ([facility]) [address] [place] [address] Sodium [Moles/Vol] 137 mmol/L Normal 136-[address] [facility] Comment on above: Performed By: #### L [id number] #### [facility] ([facility]) [address] [place] [address] Urea nitrogen [Mass/Vol] 30 mg/dL High 7-25 [facility] Comment on above: Performed By: #### L [id number] #### [facility] ([facility]) [address] [place] [address] UREA NITROGEN/CREATININE (MASS RATIO) IN SER/PLAS 31.3 Normal [facility] Comment on above: Performed By: #### L [id number] #### [facility] ([facility]) [address] [place] [address] CBC WITH AUTO DIFFERENTIALon 10-07-2023 Basophils (Bld) [#/Vol] 0.03 10*3/uL Normal 0.00-0.20 [facility] Comment on above: Performed By: #### L [id number] #### [facility] ([facility]) [address] [place] [place] [address] Basophils/100 WBC (Bld) 0.6 % Normal 0.0-1.0 [facility] Comment on above: Performed By: #### L [id number] #### [facility] ([facility]) [address] [place] [address] Eosinophils (Bld) [#/Vol] 0.11 10*3/uL Normal 0.00-0.50 [facility] Comment on above: Performed By: #### L [id number] #### [facility] ([facility] [place]) [address] [place] [address] Eosinophils/100 WBC (Bld) 2.0 % Normal 0.0-6.0 [facility] Comment on above: Performed By: #### L [id number] #### [facility] ([facility]) [address] [place] [place] [address] Erythrocyte distribution width (RBC) [Ratio] 12.2 % Normal 11.5-15.0 [facility] Comment on above: Performed By: #### L [id number] #### [facility] ([facility]) [address] [place] [place] [address] ERYTHROCYTE MEAN CORPUSCULAR HEMOGLOBIN CONCENTRATION (G/DL) BY AUTOMATED 34.3 g/dL Normal 32.0-35.0 [facility] Comment on above: Performed By: #### L [id number] #### [facility] ([facility]) [address] [place] [address] Hematocrit (Bld) [Volume fraction] 50.5 % Normal 39.0-55.0 [facility] Comment on above: Performed By: #### L [id number] #### [facility] ([facility]) [address] [place] [address] Hemoglobin (Bld) [Mass/Vol] 17.3 g/dL High 13.0-17.0 [facility] Comment on above: Performed By: #### L [id number] #### [facility] ([facility]) [address] [address] Immature granulocytes (Bld) [#/Vol] 0.02 10*3/uL Normal 0.00-0.20 [facility] Comment on above: Performed By: #### L [id number] #### [facility] ([facility]) [address] [place] [address] Immature granulocytes/100 WBC (Bld) 0.4 % Normal 0.0-1.0 [facility] Comment on above: Performed By: #### L [id number] #### [facility] ([facility]) [address] [place] [address] Lymphocytes (Bld) [#/Vol] 1.32 10*3/uL Normal 1.20-4.00 [facility] Comment on above: Performed By: #### L [id number] #### [facility] ([facility]) [address] [address] Lymphocytes/100 WBC (Bld) 24.3 % Normal 20.0-45.0 [facility] Comment on above: Performed By: #### L [id number] #### [facility] ([facility]) [address] [place] [address] MCH (RBC) [Entitic mass] 34.9 pg High 27.0-33.0 [facility] Comment on above: Performed By: #### L [id number] #### [facility] (BEAKER) [address] [place] [address] MCV (RBC) [Entitic vol] 102.0 fL High 82.0-98.0 [facility] Comment on above: Performed By: #### L [id number] #### [facility] (BEAKER) [address] [place] [address] Monocytes (Bld) [#/Vol] 0.68 10*3/uL Normal 0.10-1.00 [facility] Comment on above: Performed By: #### L [id number] #### [facility] ([facility]) [address] [place] [address] Monocytes/100 WBC (Bld) 12.5 % High 5.0-12.0 [facility] Comment on above: Performed By: #### L [id number] #### [facility] ([facility]) [address] [place] [address] Neutrophils (Bld) [#/Vol] 3.27 10*3/uL Normal 1.60-7.60 [facility] Comment on above: Performed By: #### L [id number] #### [facility] ([facility]) [address] [place] [address] Neutrophils/100 WBC (Bld) 60.2 % Normal 40.0-72.0 [facility] Comment on above: Performed By: #### L [id number] #### [facility] ([facility]) [address] [place] [address] NRBC (PER 100 WBCS) BY AUTOMATED COUNT 0.0 % Normal 0 [facility] Comment on above: Performed By: #### L [id number] #### [facility] ([facility]) [address] [place] [address] PLATELETS (10*3/UL) IN BLOOD AUTOMATED COUNT 216 10*3/uL Normal 150-400 [facility] Comment on above: Performed By: #### L [id number] #### [facility] [address] [place] [address] RBC (Bld) [#/Vol] 4.95 10*6/uL Normal 4.20-5.70 [facility] Comment on above: Performed By: #### L [id number] #### [facility] (BEAKER) [address] [place] [address] WBC (Bld) [#/Vol] 5.43 10*3/uL Normal 4.00-10.60 [facility] Comment on above: Performed By: #### L [id number] #### [facility] (BEAKER) [address] [place] [address] CONSULTon 10-07-2023 CONSULT -- Attestation signed by [...] bilateral hilar lymphadenopathy. Patient was transferred to [facility] for further evaluation, echocardiogram showed EF [...] No Food Insecurity (more content not included)... [facility] HPon 10-07-2023 HP -- Attestation signed by Yakelin Herrera MD at 10/07/2023 11:02 AM Yakelin Herrera MD, MPH, [facility], [facility], [facility] Interventional Cardiology Pager Email: [email or web address] [email or web address] [email or web address]. Patient with multiple coronary [...] were addressed and answered. Florina Prasad MD Wastewater Operator - PGY5 [facility] Normal [facility] POCT GLUCOSE METER UNSOLICIT ED RESULTSon 10-07-2023 Glucose [Mass/Vol] 173 mg/dL High 70-[address] [facility] Comment on above: Order Comment: Waive d Testing in the ED is performed under the ED CLIA certificate #[id number]. Result Comment: [email or web address] Performed By: #### L [id number] #### [facility] (BEFanz[facility]) [address] [place] [address] Glucose [Mass/Vol] 169 mg/dL High 70-[address] [facility] Comment on above: Order Comment: Waive d Testing in the ED is performed under the ED CLIA certificate #[id number]. Result Comment: [email or web address] Performed By: #### L [id number] ####[facility] (BEFanzter)[address] [place] [address] Glucose [Mass/Vol] 242 mg/dL High 70-[address] [facility] Comment on above: Order Comment: Waive d Testing in the ED is performed under the ED CLIA certificate #[id number]. Result Comment: [email or web address] Performed By: #### L [id number] #### [facility] (Fanzter) [address] [place] [address] 30on 10-06-2023 30 The patient is Moderately [...] and behaviors that affect risk of falls Dewitt fall precautions as indicated by assessment Educate [...] and prevent overall improvement and discharge Normal [facility] 30 The patient is Moderately Stable - Low risk of patient condition declining or worsening The patient's goals for the shift include rest The clinical goals for the shift include comfort/vss Normal [facility] 30 The patient is Moderately Stable - [...] and maintained or improved Outcome: Progressing Normal [facility] B-TYPE NATRIURETIC PEPTIDEon 10-06-2023 Natriuretic peptide B (Bld) [Mass/Vol] 752 pg/mL High 0-100 [facility] Comment on above: Performed By: #### L [id number] #### [facility] (BEAKER) [address] [place] [address] Natriuretic peptide B (Bld) [Mass/Vol] 711 pg/mL High 0-100 [facility] Comment on above: Performed By: #### L [id number] #### [facility] [address] [place] [address] BASIC METABOLIC PANELon 09-09 Anion gap [Moles/Vol] 16 mmol/L Normal 7-20 [facility] Comment on above: Performed By: #### L [id number] ####[facility] [place] [address] Calcium [Mass/Vol] 9.7 mg/dL Normal 8.6-10.[address] [facility] Comment on above: Performed By: #### L [id number] ####[facility] (BEAKER)[address] [place] [address] Chloride [Moles/Vol] 99 mmol/L Normal 98-107 [facility] Comment on above: Performed By: #### L [id number] ####[facility] (BEAKER)[address] [place] [address] CO2 [Moles/Vol] 26 mmol/L Normal 21-31 [facility] Comment on above: Performed By: #### L [id number] ####[facility] (BEAKER)[address] [place] [address] Creatinine [Mass/Vol] 1.03 mg/dL Normal 0.70-1.30 [facility] Comment on above: Performed By: #### L [id number] ####[facility] (BEAKER)[address] [place] [address] GLOMERULAR FILTRATION RATE ML/MIN/1.73 SQ M.PREDICTED 88.5 mL/min/1.73m*2 Normal >60.0 [facility] Comment on above: Result Comment: [facility]???s estimated glomerular filtration rate (eGFR) will no [...] of individuals. Performed By: #### L [id number] ####[facility] ([facility] [place] [address] Glucose [Mass/Vol] 185 mg/dL High 70-[address] [facility] Comment on above: Performed By: #### L [id number] ####[facility] ([facility])[address] [place] [address] Potassium [Moles/Vol] 4.3 mmol/L Normal 3.5-5.1 [facility] Comment on above: Performed By: #### L [id number] ####[facility] ([facility])[address] [place] [address] Sodium [Moles/Vol] 137 mmol/L Normal 136-[address] [facility] Comment on above: Performed By: #### L [id number] ####[facility] (BEAKER)[address] [place] [address] Urea nitrogen [Mass/Vol] 22 mg/dL Normal 7-25 [facility] Comment on above: Performed By: #### L [id number] ####[facility] [place] [address] UREA NITROGEN/CREATININE (MASS RATIO) IN SER/PLAS 21.4 Normal [facility] Comment on above: Performed By: #### L [id number] ####[facility] (BEAKER)[address] [place] [address] Anion gap [Moles/Vol] 16 mmol/L Normal 7-20 [facility] Comment on above: Performed By: #### L [id number] #### [facility] ([facility] [address] [place] [address] Calcium [Mass/Vol] 9.6 mg/dL Normal 8.6-10.[address] [facility] Comment on above: Performed By: #### L [id number] #### [facility] ([facility]) [address] [place] [address] Chloride [Moles/Vol] 99 mmol/L Normal 98-107 [facility] Comment on above: Performed By: #### L [id number] #### [facility] ([facility]) [address] [place] [address] CO2 [Moles/Vol] 26 mmol/L Normal 21-31 [facility] Comment on above: Performed By: #### L [id number] #### [facility] ([facility] [place]) [address] [place] [address] Creatinine [Mass/Vol] 0.98 mg/dL Normal 0.70-1.30 [facility] Comment on above: Performed By: #### L [id number] #### [facility] ([facility] [place]) [address] [place] [address] GLOMERULAR FILTRATION RATE ML/MIN/1.73 SQ M.PREDICTED 93.9 mL/min/1.73m*2 Normal >60.0 [facility] Comment on above: Result Comment: [facility]???s estimated glomerular filtration rate (eGFR) will no [...] individuals. Performed By: #### L [id number] #### [facility] ([facility] [place]) [address] [place] [address] Glucose [Mass/Vol] 176 mg/dL High 70-[address] [facility] Comment on above: Performed By: #### L [id number] #### [facility] ([facility] [place]) [address] [place] [address] Potassium [Moles/Vol] 4.3 mmol/L Normal 3.5-5.1 [facility] Comment on above: Performed By: #### L [id number] #### [facility] ([facility] [place]) [address] [facility] [place] [address] Sodium [Moles/Vol] 137 mmol/L Normal 136-[address] [facility] Comment on above: Performed By: #### L [id number] #### [facility] ([facility] [place]) [address] [facility] [place] [address] Urea nitrogen [Mass/Vol] 22 mg/dL Normal 7-25 [facility] Comment on above: Performed By: #### L [id number] #### [facility] ([facility] [place]) [address] [facility] [place] [address] UREA NITROGEN/CREATININE (MASS RATIO) IN SER/PLAS 22.4 Normal [facility] Comment on above: Performed By: #### L [id number] #### [facility] ([facility]) [address] [place] [address] CBC WITH AUTO DIFFERENTIALon 10-06-2023 Basophils (Bld) [#/Vol] 0.06 10*3/uL Normal 0.00-0.20 [facility] Comment on above: Performed By: #### L [id number] ####[facility] ([facility])[address] [place] [address] Basophils/100 WBC (Bld) 1.0 % Normal 0.0-1.0 [facility] Comment on above: Performed By: #### L [id number] ####[facility] ([facility] [place])[address] [place] [address] Eosinophils (Bld) [#/Vol] 0.11 10*3/uL Normal 0.00-0.50 [facility] Comment on above: Performed By: #### L [id number] ####[facility] (BEAKER)[address] [place] [address] Eosinophils/100 WBC (Bld) 1.8 % Normal 0.0-6.0 [facility] Comment on above: Performed By: #### L [id number] ####[facility] [place] [address] Erythrocyte distribution width (RBC) [Ratio] 12.3 % Normal 11.5-15.0 [facility] Comment on above: Performed By: #### L [id number] ####[facility] ([facility] [place])[address] [place] [address] ERYTHROCYTE MEAN CORPUSCULAR HEMOGLOBIN CONCENTRATION (G/DL) BY AUTOMATED 34.1 g/dL Normal 32.0-35.0 [facility] Comment on above: Performed By: #### L [id number] ####[facility] [place] [address] Hematocrit (Bld) [Volume fraction] 50.7 % Normal 39.0-55.0 [facility] Comment on above: Performed By: #### L [id number] ####[facility] (BEAKER)[address] [place] [address] Hemoglobin (Bld) [Mass/Vol] 17.3 g/dL High 13.0-17.0 [facility] Comment on above: Performed By: #### L [id number] ####[facility] (BEAKER)[address] [place] [address] Immature granulocytes (Bld) [#/Vol] 0.02 10*3/uL Normal 0.00-0.20 [facility] Comment on above: Performed By: #### L [id number] ####[facility] (BEAKER)[address] [place] [address] Immature granulocytes/100 WBC (Bld) 0.3 % Normal 0.0-1.0 [facility] Comment on above: Performed By: #### L [id number] ####[facility] (BEAKER)[address] [place] [address] Lymphocytes (Bld) [#/Vol] 1.25 10*3/uL Normal 1.20-4.00 [facility] Comment on above: Performed By: #### L [id number] ####[facility] (BEAKER)[address] [place] [address] Lymphocytes/100 WBC (Bld) 20.1 % Normal 20.0-45.0 [facility] Comment on above: Performed By: #### L [id number] ####[facility] (BEAKER)[address] [place] [address] MCH (RBC) [Entitic mass] 34.7 pg High 27.0-33.0 [facility] Comment on above: Performed By: #### L [id number] ####[facility] (BEAKER)[address] [place] [address] MCV (RBC) [Entitic vol] 101.6 fL High 82.0-98.0 [facility] Comment on above: Performed By: #### L [id number] ####[facility] (BEAKER)[address] [place] [address] Monocytes (Bld) [#/Vol] 0.75 10*3/uL Normal 0.10-1.00 [facility] Comment on above: Performed By: #### L [id number] ####[facility] (BEAKER)[address] [place] [address] Monocytes/100 WBC (Bld) 12.0 % Normal 5.0-12.0 [facility] Comment on above: Performed By: #### L [id number] ####[facility] (BEAKER)[address] [place] [address] Neutrophils (Bld) [#/Vol] 4.04 10*3/uL Normal 1.60-7.60 [facility] Comment on above: Performed By: #### L [id number] ####[facility] (BEAKER)[address] [place] [address] Neutrophils/100 WBC (Bld) 64.8 % Normal 40.0-72.0 [facility] Comment on above: Performed By: #### L [id number] ####[facility] ([facility])[address] [place] [address] NRBC (PER 100 WBCS) BY AUTOMATED COUNT 0.0 % Normal 0 [facility] Comment on above: Performed By: #### L [id number] ####[facility] ([facility])[address] [place] [address] PLATELETS (10*3/UL) IN BLOOD AUTOMATED COUNT 219 10*3/uL Normal 150-400 [facility] Comment on above: Performed By: #### L [id number] ####[facility] ([facility])[address] [place] [address] RBC (Bld) [#/Vol] 4.99 10*6/uL Normal 4.20-5.70 [facility] Comment on above: Performed By: #### L [id number] ####[facility] ([facility])[address] [place] [address] WBC (Bld) [#/Vol] 6.23 10*3/uL Normal 4.00-10.60 [facility] Comment on above: Performed By: #### L [id number] ####[facility] ([facility])[address] [place] [address] CONSULTon 10-06-2023 CONSULT -- Attestation signed by [...] obesity, LARS, tobacco dependence intially presents to [facility] after sudden onset SOB. He woke up [...] for takotsubo cardiomyopathy. Patient was transferred to [facility] for further evalaution. Upon arrival, patient [...] QT Interval 404 QTC CALCULATION(BAZETT) 488 P [place] 50 R-[place] 0 T Wave [place] 61 Impression Sinus rhythm with occasional Premature [...] 12 l (more content not included)... Normal [facility] CONSULT Clinical Nutrition Assessment Name: Tera Roberto [...] with questions and contact the dietitian via Diff[employer] chat 8A-4P Tuesday-Tuesday. Or call the dietitian's office at extension [phone]. For weekends/holidays, the dietitian's can be reached by paging [phone] from 9A-3P. Unable to be reached via [employer] chat on Tuesday & .) [facility] -- Attestation signed by [...] obesity, LARS, tobacco dependence intially presents to [facility] after sudden onset SOB. He woke up [...] for takotsubo cardiomyopathy. Patient was transferred to [facility] for further evalaution. Upon arrival, patient [...] QT Interval 404 QTC CALCULATION(BAZETT) 488 P [place] 50 R-[place] 0 T Wave [place] 61 Impression Sinus rhythm with occasional Premature [...] 12 l (more content not included)... Normal [facility] LEGIONELLA ANTIGEN, URINEon 10-06-2023 LEGIONELLA AG, UR Negative Normal NEG [facility] Comment on above: Result Comment: L. p neumophila serogroup 1 antigen not detected. A negative result does not exclude infection with Leginella pnemophila serogroup 1 nor does it rule out other microbial-caused respiratory infections of disease caused by other serogroups of Legionella pneumophila. Test Performed by [facility] [employer] [address] [place] [address] - Released 10/06/2023 20:50 Performed By: #### L [id number] ####[facility] [id number] [place] [address] LIPID PANELon 10-06-2023 CHOL/HDL 4.5 mg/dL Normal [facility] Comment on above: Performed By: #### L [id number] #### [facility] ([facility] [place]) [address] [place] [address] Cholesterol [Mass/Vol] 229 mg/dL High 120-200 [facility] Comment on above: Performed By: #### L [id number] #### [facility] ([facility] [place]) [address] [place], [place] [address] CHOLESTEROL IN LDL (MG/DL) IN SERUM OR PLASMA BY CALCULATION Normal [facility] Comment on above: Result Comment: Calc ulated LDL invalid, triglycerides >400 mg/dl Performed By: #### L [id number] #### [facility] ([facility] [address] [place] [address] Magnesium [Mass/Vol] 469 mg/dL High 40-149 [facility] Comment on above: Result Comment: TRIG LYCERIDE REFERENCE RANGE: 20 YEARS AND OLDER CARDIOVASCULAR RISK LESS THAN 150 mg/dL LOW RISK 150 TO 199 mg/dL BORDERLINE RISK 200 mg/dL AND GREATER HIGH RISK Performed By: #### L [id number] #### [facility] ([facility] [place] [address] [place] [address] Magnesium [Mass/Vol] 51 mg/dL Normal 23-92 [facility] Comment on above: Performed By: #### L [id number] #### [facility] ([facility] [address] [place] [address] NON HDL CHOL. (LDL+VLDL) 178 Normal [facility] Comment on above: Performed By: #### L [id number] #### [facility] ([facility] [address] [place] [address] TOTAL VLDL-C 94 mg/dL High 0-40 [facility] Comment on above: Performed By: #### L [id number] #### [facility] ([employer]) [address] [place] [address] POCT GLUCOSE METER UNSOLICIT ED RESULTSon 10-06-2023 Glucose [Mass/Vol] 276 mg/dL High 70-[address] [facility] Comment on above: Order Comment: Waive d Testing in the ED is performed under the ED CLIA certificate #[id number]. Result Comment: [email or web address] Performed By: #### L [id number] #### [facility] ([employer]) [address] [facility] [place] [address] Glucose [Mass/Vol] 187 mg/dL High 70-[address] [facility] Comment on above: Order Comment: Waive d Testing in the ED is performed under the ED CLIA certificate #[id number]. Result Comment: [email or web address] Performed By: #### L [id number] #### [facility] ([employer]) [address] [facility] [place] [address] Glucose [Mass/Vol] 183 mg/dL High 70-[address] [facility] Comment on above: Order Comment: Waive d Testing in the ED is performed under the ED CLIA certificate #[id number]. Result Comment: [email or web address] Performed By: #### L [id number] #### [facility] ([employer]) [address] [facility] [place] [address] Glucose [Mass/Vol] 183 mg/dL High 70-[address] [facility] Comment on above: Order Comment: Waive d Testing in the ED is performed under the ED CLIA certificate #[id number]. Result Comment: [email or web address] Performed By: #### L [id number] ####[facility] ([employer])[address] [facility] [place] [address] STREP PNEUMONIAE ANTIGEN, UR INEon 10-06-2023 STREPTOCOCCUS PNEUMONIAE AG PRESENCE IN URINE Negative Normal Negative [facility] Comment on above: Performed By: #### L [id number] ####[facility] ([facility] [place] [address] TROPONIN Ion 10-06-2023 Troponin I.cardiac [Mass/Vol] 0.03 ng/mL Normal 0.00-0.04 [facility] Comment on above: Performed By: #### L [id number] ####[facility] ([facility])[address] [place] [address] CBCon 10-05-2023 Erythrocyte distribution width (RBC) [Ratio] 12.3 % Normal 11.5-15.0 [facility] Comment on above: Performed By: #### L [id number] #### [facility] ([facility] [address] [place] [address] ERYTHROCYTE MEAN CORPUSCULAR HEMOGLOBIN CONCENTRATION (G/DL) BY AUTOMATED 33.8 g/dL Normal 32.0-35.0 [facility] Comment on above: Performed By: #### L [id number] #### [facility] ([facility]) [address] [place] [address] Hematocrit (Bld) [Volume fraction] 49.4 % Normal 39.0-55.0 [facility] Comment on above: Performed By: #### L [id number] #### [facility] ([facility]) [address] [place] [address] Hemoglobin (Bld) [Mass/Vol] 16.7 g/dL Normal 13.0-17.0 [facility] Comment on above: Performed By: #### L [id number] #### [facility] ([facility]) [address] [place] [address] IMMATURE PLATELET FRACTION % 11.1 % High 0.8-6.3 [facility] Comment on above: Performed By: #### L [id number] #### [facility] ([facility]) [address] [place] [address] MCH (RBC) [Entitic mass] 34.9 pg High 27.0-33.0 [facility] Comment on above: Performed By: #### L [id number] #### [facility] ([facility]) [address] [place] [address] MCV (RBC) [Entitic vol] 103.3 fL High 82.0-98.0 [facility] Comment on above: Performed By: #### L [id number] #### [facility] ([facility]) [address] [place] [address] PLATELETS (10*3/UL) IN BLOOD AUTOMATED COUNT 149 10*3/uL Low 150-400 [facility] Comment on above: Performed By: #### L [id number] #### [facility] ([facility]) [address] [place] [address] RBC (Bld) [#/Vol] 4.78 10*6/uL Normal 4.20-5.70 [facility] Comment on above: Performed By: #### L [id number] #### [facility] ([facility] [address] [place] [address] WBC (Bld) [#/Vol] 6.46 10*3/uL Normal 4.00-10.60 [facility] Comment on above: Performed By: #### L [id number] #### [facility] ([facility] [address] [place] [address] HEMOGLOBIN A1Con 10-05-2023 Glucose [Mass/Vol] 183 mg/dL Normal [facility] Comment on above: Performed By: #### L [id number] #### [facility] ([facility] [address] [place] [address] HbA1c (Bld) [Mass fraction] 8.0 % High 4.0-6.0 [facility] Comment on above: Performed By: #### L [id number] #### [facility] ([facility] [address] [place] [address] POCT GLUCOSE METER UNSOLICIT ED RESULTSon 10-05-2023 Glucose [Mass/Vol] 229 mg/dL High 70-[address] [facility] Comment on above: Order Comment: Waive d Testing in the ED is performed under the ED CLIA certificate #[id number]. Result Comment: [email or web address] Performed By: #### L [id number] ####[facility] ([employer])[address] [facility] [place] [address] Covid-19 PCR ([facility])on 07-09 SARS-CoV-2 (COVID-19) RNA NIXON+probe Ql (Unsp spec) Detected Critically abnormal NOT DETECTED The [facility] Comment on above: Result Comment: This test is not yet approved or cleared by the [place] FDA. When there are no FDA-approved or cleared tests available, and other criteria are met, FDA can make tests available under an emergency access mechanism called an Emergency Use Authorization (EUA). The EUA for this test is supported by the Heating And Cooling Technician of Health and Human Service's (HHS's) [...] used). Performed By: #### A 1C #### [facility] [address] [place] [address] Dr. Bridger Aggarwal INFLUENZA A AND B AGon 08-03 [facility] SEE BELOW Normal [facility] Comment on above: Result Comment: Nega tive for Flu A protein angiten. Infection due to Flu A cannot be ruled out. Flu A angiten in the sample may be below the detection limit of the test. Performed By: #### I NFLUAB #### [facility] [address] [place] [address] Dr. Bridger Aggarwal [facility]FLUUNITED [facility] SEE BELOW Normal [facility] Comment on above: Result Comment: Nega tive for Flu B protein antigen. Infection due to Flu B cannot be ruled out. Flu B antigen in the sample may be below the detection limit of the test. Performed By: #### I NFLUAB #### [facility] [address] [place] [address] Dr. Bridger Aggarwal INFLUENZA A AG Negative Normal NEGATIVE SEE COMMENT [facility] Comment on above: Performed By: #### I NFLUAB #### [facility] [address] [place] [address] Dr. Bridger Aggarwal INFLUENZA B AG Negative Normal NEGATIVE SEE COMMENT [facility] Comment on above: Performed By: #### I NFLUAB #### [facility] [address] [place] [address] Dr. Bridger Aggarwal INTERNAL CONTROLS Within Normal Limits Normal Wi thin Normal Limits [facility] Comment on above: Performed By: #### I NFLUAB #### [facility] [address] [place] [address] Dr. Bridger Aggarwal CULTURE WOUNDon 04-23-2022 CULTURE [...] F Oxacillin <=0.25 S F Normal [facility] Comment on above: Performed By: #### A 1C #### [facility] [address] [place] [address] Dr. Bridger Aggarwal Covid-19 PCR ([facility])on 03-09 SARS-CoV-2 (COVID-19) RNA NIXON+probe Ql (Unsp spec) Not detected Normal NOT DETECTED [facility] Comment on above: Result Comment: This test is not yet approved or cleared by the [place] FDA. When there are no FDA-approved or cleared tests available, and other criteria are met, FDA can make tests available under an emergency access mechanism called an Emergency Use Authorization (EUA). The EUA for this test is supported by the Heating And Cooling Technician of Health and Human Service's (HHS's) [...] SARS-CoV-2. Performed By: #### A 1C #### [facility] [address] [place] [address] Dr. Bridger Aggarwal Covid-19 PCR ([facility])on SARS-CoV-2 (COVID-19) RNA NIXON+probe Ql (Unsp spec) Not detected Normal NOT DETECTED [facility] Comment on above: Result Comment: When diagnostic [...] for this test is supported by the Heating And Cooling Technician of Health and Human Service's declaration that [...] used). Performed By: #### A 1C #### [facility] [address] [place] [address] Dr. Bridger Aggarwal T4 LABCORPon 01-01-2022 T4 [Mass/Vol] 4.7 ug/dL Normal 4.5-12.0 [facility] Comment on above: Performed By: #### A 1C #### [facility] [address] [place] [address] Dr. Bridger Aggarwal FREE THYROXINE INDEX T7on FTI 1.69 Normal 1.30-4.50 [facility] Comment on above: Performed By: #### A 1C #### [facility] [address] [place] [address] Dr. Bridger Aggarwal T3U 36.0 % Normal 33.0-40.0 [facility] Comment on above: Performed By: #### A 1C #### [facility] [address] [place] [address] Dr. Bridger Aggarwal T4 [Mass/Vol] 4.70 ug/dL Normal 4.50-12.10 [facility] Comment on above: Performed By: #### A 1C #### [facility] [address] [place] [address] Dr. Bridger Aggarwal TSHon 12-28-2021 TSH 0.969 uIU/mL Normal 0.358-3.740 [facility] Comment on above: Performed By: #### A 1C #### [facility] [address] [place] [address] Dr. Bridger Aggarwal TSH RANGE SEE BELOW Normal [facility] Comment on above: Result Comment: <0.3 4 UIU/ml HYPERTHYROID 0.34-5.60 UIU/ml EUTHYROID >5.60 UIU/ml HYPOTHYROID Performed By: #### A 1C #### [facility] [address] [place] [address] Dr. Bridger Aggarwal CBC AUTO DIFFon 12-26-2021 BASO # 0.0 103/ul Normal 0.0-0.1 [facility] Comment on above: Performed By: #### C BC #### [facility] [address] [place] [address] Dr. Bridger Aggarwal Basophils/100 WBC (Bld) 0.4 % Normal 0.2-2.0 [facility] Comment on above: Performed By: #### C BC #### [facility] [address] [place] [address] Dr. Bridger Aggarwal EO # 0.1 103/ul Normal 0.0-0.7 [facility] Comment on above: Performed By: #### C BC #### [facility] [address] [place] [address] Dr. Bridger Aggarwal Eosinophils/100 WBC (Bld) 0.6 % Critically low 0.9-7.0 [facility] Comment on above: Performed By: #### C BC #### [facility] [address] [place] [address] Dr. Bridger Aggarwal Erythrocyte distribution width (RBC) [Ratio] 12.0 % Normal 11.0-15.0 [facility] Comment on above: Performed By: #### C BC #### [facility] [address] [place] [address] Dr. Bridger Aggarwal Hematocrit (Bld) [Volume fraction] 44.9 % Normal 42.0-54.0 [facility] Comment on above: Performed By: #### C BC #### [facility] [address] [place] [address] Dr. Bridger Aggarwal Hemoglobin (Bld) [Mass/Vol] 15.4 g/dL Normal 14.0-18.0 [facility] Comment on above: Performed By: #### C BC #### [facility] [address] [place] [address] Dr. Bridger Aggarwal IG # 0.03 10e3/ul Normal 0.00-0.03 [facility] Comment on above: Performed By: #### C BC #### [facility] [address] [place] [address] Dr. Bridger Aggarwal IG % 0.3 % Normal 0.0-0.5 [facility] Comment on above: Performed By: #### C BC #### [facility] [address] [place] [address] Dr. Bridger Aggarwal LYMPH # 1.5 103/ul Normal 1.2-3.8 [facility] Comment on above: Performed By: #### C BC #### [facility] [address] [place] [address] Dr. Bridger Aggarwal Lymphocytes/100 WBC (Bld) 14.2 % Critically low 20.5-60.0 [facility] Comment on above: Performed By: #### C BC #### [facility] [address] [place] [address] Dr. Bridger Aggarwal MANUAL DIFF REQ NO Normal [facility] Comment on above: Performed By: #### C BC #### [facility] [address] [place] [address] Dr. Bridger Aggarwal MCH (RBC) [Entitic mass] 34.2 pg Critically high 25.9-34.0 [facility] Comment on above: Performed By: #### C BC #### [facility] [address] [place] [address] Dr. Bridger Aggarwal MCHC (RBC) [Mass/Vol] 34.3 g/dL Normal 29.9-35.2 [facility] Comment on above: Performed By: #### C BC #### [facility] [address] [place] [address] Dr. Bridger Aggarwal MCV (RBC) [Entitic vol] 99.8 fL Critically high 80.0-94.0 [facility] Comment on above: Performed By: #### C BC #### [facility] [address] [place] [address] Dr. Bridger Aggarwal MONO # 0.7 103/ul Normal 0.3-0.8 [facility] Comment on above: Performed By: #### C BC #### [facility] [address] [place] [address] Dr. Bridger Aggarwal Monocytes/100 WBC (Bld) 6.3 % Normal 1.7-12.0 [facility] Comment on above: Performed By: #### C BC #### [facility] [address] [place] [address] Dr. Bridger Aggarwal NEUT # 8.2 103/ul Critically high 1.4-6.5 [facility] Comment on above: Performed By: #### C BC #### [facility] [address] [place] [address] Dr. Bridger Aggarwal Neutrophils/100 WBC (Bld) 78.2 % Critically high 43.0-75.0 [facility] Comment on above: Performed By: #### C BC #### [facility] [address] [place] [address] Dr. Bridger Aggarwal Platelet mean volume (Bld) [Entitic vol] 9.6 fL Normal 9.5-13.5 [facility] Comment on above: Performed By: #### C BC #### [facility] [address] [place] [address] Dr. Bridger Aggarwal PLT 247 103/ul Normal 150-450 [facility] Comment on above: Performed By: #### C BC #### [facility] [address] [address] [address] Bridger Aggarwal RBC 4.50 106/ul Critically low 4.70-6.10 [facility] Comment on above: Performed By: #### C BC #### [facility] [address] [place] [address] Dr. Bridger Aggarwal WBC 10.5 103/ul Normal 4.0-11.0 [facility] Comment on above: Performed By: #### C BC #### [facility] [address] [place] [address] HEAD WO CONon [...] JACOB LALA Date: 2021-12-26 13:30 Normal [facility] PROF CHEM 8 (BAS METB)on Anion gap [Moles/Vol] 17.1 mmol/L Normal [facility] Comment on above: Performed By: #### A 1C #### [facility] [address] [place] [address] Dr. Bridger Aggarwal Calcium [Mass/Vol] 9.4 mg/dL Normal 8.5-10.1 [facility] Comment on above: Performed By: #### A 1C #### [facility] [address] [place] [address] Dr. Bridger Aggarwal Chloride [Moles/Vol] 97 mmol/L Critically low 98-107 [facility] Comment on above: Performed By: #### A 1C #### [facility] [address] [place] [address] Dr. Bridger Aggarwal CO2 [Moles/Vol] 20.6 mmol/L Critically low 21.0-32.0 [facility] Comment on above: Performed By: #### A 1C #### [facility] [address] [place] [address] Dr. Bridger Aggarwal Creatinine [Mass/Vol] 0.96 mg/dL Normal 0.70-1.30 [facility] Comment on above: Performed By: #### A 1C #### [facility] [address] [place] [address] Dr. Bridger Aggarwal EGFR-AF HONDURAN >60 Normal >=60 [facility] Comment on above: Performed By: #### A 1C #### [facility] [address] [place] [address] Dr. Bridger Aggarwal EGFR-NON AF HONDURAN >60 Normal >=60 [facility] Comment on above: Performed By: #### A 1C #### [facility] [address] [place] [address] Dr. Bridger Aggarwal Glucose [Mass/Vol] 216 mg/dL Critically high 74-106 [facility] Comment on above: Performed By: #### A 1C #### [facility] [address] [place] [address] Dr. Bridger Aggarwal Potassium [Moles/Vol] 3.7 mmol/L Normal 3.5-5.1 [facility] Comment on above: Performed By: #### A 1C #### [facility] [address] [place] [address] Dr. Bridger Aggarwal Sodium [Moles/Vol] 131 mmol/L Critically low 136-145 Th e [facility] Comment on above: Performed By: #### A 1C #### [facility] [address] [place] [address] Dr. Bridger Aggarwal Urea nitrogen [Mass/Vol] 26.0 mg/dL Critically high 7.0-18.0 [facility] Comment on above: Performed By: #### A 1C #### [facility] [address] [place] [address] Dr. Bridger Aggarwal Urea nitrogen/Creatinine [Mass ratio] 27.1 mg/mg Normal [facility] Comment on above: Performed By: #### A 1C #### [facility] [address] [place] [address] Dr. Bridger Aggarwal CBC AUTO DIFFon 12-18-2021 BASO # 0.0 103/ul Normal 0.0-0.1 [facility] Comment on above: Performed By: #### A 1C #### [facility] [address] [place] [address] Dr. Bridger Aggarwal Basophils/100 WBC (Bld) 0.4 % Normal 0.2-2.0 [facility] Comment on above: Performed By: #### A 1C #### [facility] [address] [place] [address] Dr. Bridger Aggarwal EO # 0.1 103/ul Normal 0.0-0.7 [facility] Comment on above: Performed By: #### A 1C #### [facility] [address] [place] [address] Dr. Bridger Aggarwal Eosinophils/100 WBC (Bld) 1.2 % Normal 0.9-7.0 [facility] Comment on above: Performed By: #### A 1C #### [facility] [address] [place] [address] Dr. Bridger Aggarwal Erythrocyte distribution width (RBC) [Ratio] 12.5 % Normal 11.0-15.0 [facility] Comment on above: Performed By: #### A 1C #### [facility] [address] [place] [address] Dr. Bridger Aggarwal Hematocrit (Bld) [Volume fraction] 45.9 % Normal 42.0-54.0 [facility] Comment on above: Performed By: #### A 1C #### [facility] [address] [place] [address] Dr. Bridger Aggarwal Hemoglobin (Bld) [Mass/Vol] 15.8 g/dL Normal 14.0-18.0 [facility] Comment on above: Performed By: #### A 1C #### [facility] [address] [place] [address] Dr. Bridger Aggarwal IG # 0.04 10e3/ul Critically high 0.00-0.03 [facility] Comment on above: Performed By: #### A 1C #### [facility] [address] [place] [address] Dr. Bridger Aggarwal IG % 0.5 % Normal 0.0-0.5 [facility] Comment on above: Performed By: #### A 1C #### [facility] [address] [place] [address] Dr. Bridger Aggarwal LYMPH # 1.7 103/ul Normal 1.2-3.8 [facility] Comment on above: Performed By: #### A 1C #### [facility] [address] [place] [address] Dr. Bridger Aggarwal Lymphocytes/100 WBC (Bld) 22.3 % Normal 20.5-60.0 [facility] Comment on above: Performed By: #### A 1C #### [facility] [address] [place] [address] Dr. Bridger Aggarwal MANUAL DIFF REQ NO Normal [facility] Comment on above: Performed By: #### A 1C #### [facility] [address] [place] [address] Dr. Bridger Aggarwal MCH (RBC) [Entitic mass] 34.3 pg Critically high 25.9-34.0 The [facility] Comment on above: Performed By: #### A 1C #### [facility] [address] [place] [address] Dr. Bridger Aggarwal MCHC (RBC) [Mass/Vol] 34.4 g/dL Normal 29.9-35.2 The [facility] Comment on above: Performed By: #### A 1C #### [facility] [address] [place] [address] Dr. Bridger Aggarwal MCV (RBC) [Entitic vol] 99.6 fL Critically high 80.0-94.0 [facility] Comment on above: Performed By: #### A 1C #### [facility] [address] [place] [address] Dr. Bridger Aggarwal MONO # 0.7 103/ul Normal 0.3-0.8 The [facility] Comment on above: Performed By: #### A 1C #### [facility] [address] [place] [address] Dr. Bridger Aggarwal Monocytes/100 WBC (Bld) 8.6 % Normal 1.7-12.0 [facility] Comment on above: Performed By: #### A 1C #### [facility] [address] [place] [address] Dr. Bridger Aggarwal NEUT # 5.2 103/ul Normal 1.4-6.5 The [facility] Comment on above: Performed By: #### A 1C #### [facility] [address] [place] [address] Dr. Bridger Aggarwal Neutrophils/100 WBC (Bld) 67.0 % Normal 43.0-75.0 The [facility] Comment on above: Performed By: #### A 1C #### [facility] [address] [place] [address] Dr. Bridger Aggarwal Platelet mean volume (Bld) [Entitic vol] 9.4 fL Critically low 9.5-13.5 The [facility] Comment on above: Performed By: #### A 1C #### [facility] [address] [address] [address] Bridger Aggarwal PLT 259 103/ul Normal 150-450 The [facility] Comment on above: Performed By: #### A 1C #### [facility] [address] [address] [address] Bridger Aggarwal RBC 4.61 106/ul Critically low 4.70-6.10 [facility] Comment on above: Performed By: #### A 1C #### [facility] [address] [address] [address] Bridger Aggarwal WBC 7.8 103/ul Normal 4.0-11.0 [facility] Comment on above: Performed By: #### A 1C #### [facility] [address] [place] [address] Dr. Bridger Aggarwal FREE T3on 12-18-2021 FREE T3 2.71 pg/mlL Normal 2.18-3.98 [facility] Comment on above: Performed By: #### C MP, T4, FT3, TSH, LIPID #### [facility] [address] [address] [address] Bridger Aggarwal GLYCOHEMOGLOBIN A1Con 2021 ADA RECOMMENDATION SEE BELOW Normal [facility] Comment on above: Result Comment: ADA RECOMMENDED LIMIT 4.0 - 6.0 ADA THERAPEUTIC TARGET < 7.0 ACTION SUGGESTED > 7.0 Performed By: #### A 1C #### [facility] [address] [address] [address] Bridger Aggarwal Glucose [Mass/Vol] 197 mg/dL Normal [facility] Comment on above: Performed By: #### A 1C #### [facility] [address] [address] [address] Bridger Aggarwal HbA1c (Bld) [Mass fraction] 8.5 % Critically high 4.5-6.2 [facility] Comment on above: Performed By: #### A 1C #### [facility] [address] [place] [address] Dr. Bridger Aggarwal LIPID PROFILEon 12-18-2021 CHOL-HDL RATIO NORM SEE BELOW Normal [facility] Comment on above: Result Comment: 3.3 - 4.4 LOW RISK 4.4 - 7.1 AVERAGE RISK 7.1 - 11.0 MODERATE RISK >11.0 HIGH RISK Performed By: #### C MP, T4, FT3, TSH, LIPID #### [facility] [address] [address] [address] Bridger Aggarwal Cholesterol [Mass/Vol] 157 mg/dL Normal <=200 [facility] Comment on above: Performed By: #### C MP, T4, FT3, TSH, LIPID #### [facility] [address] [address] [address] Bridger Aggarwal Cholesterol in HDL [Mass/Vol] 46 mg/dL Normal 40-60 [facility] Comment on above: Performed By: #### C MP, T4, FT3, TSH, LIPID #### [facility] [address] [place] [address] Dr. Bridger Aggarwal Cholesterol in LDL [Mass/Vol] 85.8 mg/dL Normal [facility] Comment on above: Performed By: #### C MP, T4, FT3, TSH, LIPID #### [facility] [address] [address] [address] Bridger Aggarwal Cholesterol.total/C holesterol in HDL [Mass ratio] 3.4 {ratio} Normal [facility] Comment on above: Performed By: #### C MP, T4, FT3, TSH, LIPID #### [facility] [address] [place] [address] Dr. Bridger Aggarwal HDL NORMAL > or = 60 mg/dl - LO W CARDIOVASCULAR RISK <40 mg/dl - HIGH CARDIOVASCULAR RISK Normal [facility] Comment on above: Performed By: #### C MP, T4, FT3, TSH, LIPID #### [facility] [address] [place] [address] Dr. Bridger Aggarwal LDL CALC NORMAL SEE BELOW Normal [facility] Comment on above: Result Comment: <100 mg/dl OPTIMAL 100 - 129 mg/dl NEAR OR ABOVE OPTIMAL 130 - 159 mg/dl BORDERLINE HIGH 160 - 189 mg/dl HIGH >190 mg/dl VERY HIGH Performed By: #### C MP, T4, FT3, TSH, LIPID #### [facility] [address] [address] [address] Bridger Aggarwal Triglyceride [Mass/Vol] 126 mg/dL Normal <=150 [facility] Comment on above: Performed By: #### C MP, T4, FT3, TSH, LIPID #### [facility] [address] [address] [address] Bridger Aggarwal VLDL CALC 25.2 mg/dL Normal [facility] Comment on above: Performed By: #### C MP, T4, FT3, TSH, LIPID #### [facility] [address] [place] [address] Dr. Bridger Aggarwal OCC BLD IMMUNO SCREENon 12-06 OCCULT BLOOD Negative Normal NEGATIVE [facility] Comment on above: Performed By: #### O BSCRN #### [facility] [address] [place] [address] Dr. Bridger Aggarwal PROF 14(COMP METB)on 022 Albumin [Mass/Vol] 3.6 g/dL Normal 3.4-5.0 [facility] Comment on above: Performed By: #### C MP, T4, FT3, TSH, LIPID #### [facility] [address] [place] [address] Dr. Bridger Aggarwal Albumin/Globulin [Mass ratio] 0.9 {ratio} Normal [facility] Comment on above: Performed By: #### C MP, T4, FT3, TSH, LIPID #### [facility] [address] [place] [address] Dr. Bridger Aggarwal ALP [Catalytic activity/Vol] 84 U/L Normal 46-116 [facility] Comment on above: Performed By: #### C MP, T4, FT3, TSH, LIPID #### [facility] [address] [place] [address] Dr. Bridger Aggarwal ALT [Catalytic activity/Vol] 45 U/L Normal 16-63 [facility] Comment on above: Performed By: #### C MP, T4, FT3, TSH, LIPID #### [facility] [address] [place] [address] Dr. Bridger Aggarwal Anion gap [Moles/Vol] 12.1 mmol/L Normal [facility] Comment on above: Performed By: #### C MP, T4, FT3, TSH, LIPID #### [facility] [address] [place] [address] Dr. Bridger Aggarwal AST [Catalytic activity/Vol] 20 U/L Normal 15-37 [facility] Comment on above: Performed By: #### C MP, T4, FT3, TSH, LIPID #### [facility] [address] [place] [address] Dr. Bridger Aggarwal Bilirubin [Mass/Vol] 0.6 mg/dL Normal 0.2-1.0 [facility] Comment on above: Performed By: #### C MP, T4, FT3, TSH, LIPID #### [facility] [address] [place] [address] Dr. Bridger Aggarwal Calcium [Mass/Vol] 9.1 mg/dL Normal 8.5-10.1 [facility] Comment on above: Performed By: #### C MP, T4, FT3, TSH, LIPID #### [facility] [address] [place] [address] Dr. Bridger Aggarwal Chloride [Moles/Vol] 100 mmol/L Normal 98-107 The [facility] Comment on above: Performed By: #### C MP, T4, FT3, TSH, LIPID #### [facility] [address] [place] [address] Dr. Bridger Aggarwal CO2 [Moles/Vol] 28.4 mmol/L Normal 21.0-32.0 [facility] Comment on above: Performed By: #### C MP, T4, FT3, TSH, LIPID #### [facility] [address] [place] [address] Dr. Bridger Aggarwal Creatinine [Mass/Vol] 0.99 mg/dL Normal 0.70-1.30 [facility] Comment on above: Performed By: #### C MP, T4, FT3, TSH, LIPID #### [facility] [address] [place] [address] Dr. Bridger Aggarwal EGFR-AF HONDURAN >60 Normal >=60 [facility] Comment on above: Performed By: #### C MP, T4, FT3, TSH, LIPID #### [facility] [address] [place] [address] Dr. Bridger Aggarwal EGFR-NON AF HONDURAN >60 Normal >=60 [facility] Comment on above: Performed By: #### C MP, T4, FT3, TSH, LIPID #### [facility] [address] [address] [address] Bridger Aggarwal Globulin (S) [Mass/Vol] 3.8 g/dL Normal [facility] Comment on above: Performed By: #### C MP, T4, FT3, TSH, LIPID #### [facility] [address] [place] [address] Dr. Bridger Aggarwal Glucose [Mass/Vol] 260 mg/dL Critically high 74-106 T [facility] Comment on above: Performed By: #### C MP, T4, FT3, TSH, LIPID #### [facility] [address] [place] [address] Dr. Bridger Aggarwal Potassium [Moles/Vol] 4.5 mmol/L Normal 3.5-5.1 [facility] Comment on above: Performed By: #### C MP, T4, FT3, TSH, LIPID #### [facility] [address] [place] [address] Dr. Bridger Aggarwal Protein [Mass/Vol] 7.4 g/dL Normal 6.4-8.2 [facility] Comment on above: Performed By: #### C MP, T4, FT3, TSH, LIPID #### [facility] [address] [place] [address] Dr. Bridger Aggarwal Sodium [Moles/Vol] 136 mmol/L Normal 136-145 [facility] Comment on above: Performed By: #### C MP, T4, FT3, TSH, LIPID #### [facility] [address] [place] [address] Dr. Bridger Aggarwal Urea nitrogen [Mass/Vol] 17.0 mg/dL Normal 7.0-18.0 [facility] Comment on above: Performed By: #### C MP, T4, FT3, TSH, LIPID #### [facility] [address] [address] [address] Bridger Aggarwal Urea nitrogen/Creatinine [Mass ratio] 17.2 mg/mg Normal The [facility] Comment on above: Performed By: #### C MP, T4, FT3, TSH, LIPID #### [facility] [address] [place] [address] Dr. Bridger Aggarwal T4on 12-18-2021 T4 [Mass/Vol] 4.80 ug/dL Normal 4.50-12.10 [facility] Comment on above: Performed By: #### C MP, T4, FT3, TSH, LIPID #### [facility] [address] [place] [address] Dr. Bridger Aggarwal TSHon 12-18-2021 TSH 1.496 uIU/mL Normal 0.358-3.740 [facility] Comment on above: Performed By: #### C MP, T4, FT3, TSH, LIPID #### [facility] [address] [place] [address] Dr. Bridger Aggarwal TSH RANGE SEE BELOW Normal [facility] Comment on above: Result Comment: <0.3 4 UIU/ml HYPERTHYROID 0.34-5.60 UIU/ml EUTHYROID >5.60 UIU/ml HYPOTHYROID Performed By: #### C MP, T4, FT3, TSH, LIPID #### [facility] [address] [place] [address] Dr. Bridger Aggarwal Encounters Encounter Date Encounter Type Care Provider Facility Start: 12-05-2023 End: 12-05-2023 ambulatory [facility] Start: 10-13-2023 End: 10-13-20[facility]: 10-06-2023 Evaluation and management of inpatient DESTINEE COSTA [facility] Start: 10-05-2023 End: 10-09-2023 Evaluation and management of inpatient ADARSH HALL [facility] Start: 08-10-2022 End: 08-10-[address] ADARSH [...] without abnormal findings DR ADARSH HALL [facility] Start: 12-18-2021 End: 12-19-[address] ADARSH HALL Facility:[facility] Start: 12-18-2021 End: 12-19-2021 Encounter for general adult medical examination without abnormal findings DR ADARSH HALL Facility:[facility] Procedures Date Procedure Procedure Detail Performing Clinician Start: 12-18-[address] GREG HALL Comment on above: Performed By: #### P [facility] #### [facility] [address] [place] [address] Dr. Bridger Aggarwal Payers Date Payer Category Payer Unknown [id number] .. [id number] 1975 Unknown [id number] 2..84 [id number] 1975 Unknown [id number] 2..84 [id number] 1973 Unknown [id number] 2.16.84 [id number] 1973 Unknown [id number] 2..84 [id number] 1973 Unknown [id number] 2.16.84 [id number] 1973 Unknown [id number] 2.16.84 [id number] 1973 Unknown [id number] 2.16.84 [id number] 1961 Private Health Insurance [id number] 1961 Unknown [id number] Clinical Notes 10-05-2023 to 12-05-2023 Note Date & Type Note Facility 12-05-2023 Note [facility] Cardiology Clinic Note Chief Complaint: Patient here [...] disease- nonobstructive with sluggish coronary flow on [facility] 10/07/23 Hypertension Type 2 DM with A1C [...] obesity, LARS, tobacco dependence intially presents to [facility] after sudden onset SOB. He woke up [...] 37.66 kg/m??? P (more content not included)... [facility] 10-13-2023 Note Cardiovascular Medic [facility] SUBJECTIVE Chief Complaint Patient presents [...] disease- nonobstructive with sluggish coronary flow on [facility] 10/07/23 Hypertension Type 2 DM with A1C [...] obesity, LARS, tobacco dependence intially presents to [facility] after sudden onset SOB. He woke up [...] Heart failure (CMS/HCC) Coronary artery disease involving [place] coronary artery of [place] heart without angina pectoris Benign hypertensive heart [...] at bedtime., Disp: (more content not included)... [facility] 10-13-2023 Note Patient here for [facility] for new onset CHF. He underwent heart cath on 10/07/[address] Herrera. Was discharged with a LifeVest. He has completely stopped smoking and drinking alcohol. Denies chest pain, SOB, palpitations, and lightheadedness/syncope. Review of Systems All other systems reviewed and are negative. [facility] 10-09-2023 Note Patient discharged v ia private ride with . Patient educated on discharge and educated on heart failure education. All questions and concerns addressed at this time. [facility] 10-09-2023 Note 10/09/23 1403 CM Interventions CM Interventions Other (Comment) Follow up appointment for GI Clinic was scheduled for patient for tomorrow, however, per Epic chart, patient has already cancelled. Dr Costa notified [facility] 10-09-2023 Note Awaiting life vest a pproval and fitting. OTM will continue to follow. 1200: Life Vest approved. Awaiting RN for fitting. [facility] 10-09-2023 Note Hospital Medicine Discharge Summary Final Discharge Diagnosis: New onset heart failure with reduced EF, 20-25%, NYHA I, with global hypokinesis NICMP Coronary artery disease- nonobstructive with sluggish coronary flow on [facility] 10/07/23 Hypertension Type 2 DM with A1C [...] obesity, LARS, tobacco dependence intially presents to [facility] after sudden onset SOB. He woke up [...] was discharged home. Dear Dr. Rafael MD Browder is advised to follow up with you [...] Medications These medications were sent to [facility] - [place], [place] - [address] [place] [address], [facility] [address] aspirin 81 mg chewable tablet atorvastatin 80 [...] (!) 129/100, pulse (more content not included)... [facility] 10-08-2023 Note mud jack nozzle worker lalito valentin by Dakota, at [facility], on behalf of patient. Facesheet & cardiology progress note faxed to [facility] to initiate life ves referral. Awaiting approval / denial and next steps before patient can discharge. UPDATE: Multimedia Editor reached out to Dakota who reports he is still waiting for insurance approval for life vest. This information was shared with physician, bedside nurse, and social work assistant. Dakota reports if he is approved today, he will attempt to get patient fitted for his life vest today as well. OTM team continuing to follow. [facility] 10-08-2023 Note Hospital Medicine Discharge Summary Final Discharge Diagnosis: New onset heart failure with reduced EF, 20-25%, NYHA I, with global hypokinesis NICMP Coronary artery disease- nonobstructive with sluggish coronary flow on [facility] 10/07/23 Hypertension Type 2 DM with A1C 8% Dyslipidemia Alcohol abuse Tobacco dependence Circumferential esophageal thickening-Outpatient GI Fup for concern of EGD, has hx of reflux, Cont PPI therapy Bilateral groundglass opacities and hilar lymphadenopathy. Be infectious versus inflammatory. Flu PCR and COVID-negative. Admission Diagnosis: Heart failure ([facility]) [I50.9] Hospital course: Tera Roberto is a 48 y.o. male with a PMH significant for T2DM, HTN, obesity, LARS, tobacco dependence intially presents to [facility] after sudden onset SOB. He woke up [...] Medications These medications were sent to [facility] - [place] [place] [facility] [address] [place] [address], [facility] [address] aspirin 81 mg chewable tablet atorvastatin 80 [...] time of di (more content not included)... [facility] 10-08-2023 Note UTP CARDIOLOGY PROGR ESS NOTE [...] lock IV AND sodium chloride CV Testing: [facility] 10/07/23: FINAL IMPRESSIONS: Angiographically nonobstructive coronary arteries [...] a beta-nabila, a (more content not included)... [facility] 10-08-2023 Note Hospital Medicine Daily Progress Note - 10/09/2023 7:16 AM; Room: [address] [place] [address] Admission: 10/05/2023 7:45 PM; Length of stay: 4 days THE HOSPITALIST TEAM PREFERS TO USE 360T CHAT FOR COMMUNICATION 7AM-7PM. IF I DO NOT RESPOND WITHIN 15 MINUTES, PLEASE PAGE ME/CALL THROUGH THE [employer]. FROM 7PM-7AM, PLEASE PAGE [phone](COVR) Code Status: Full Code Barriers to Discharge: [...] Active Inpatient Problems Principal Problem: Heart failure ([facility]) Assessment and Plan Acute hypoxemic [...] Academy of Nutrition and Dietetics and the [place] [employer] of Enteral and Parenteral Nutrition, meets [...] LDL 178 10/06/2023 No results found for: [id number] , IRON , TIBC , C3 , [...] beta-nabila, a RAA (more content not included)... [facility] 10-07-2023 Note Clinical Therapist B [facility] Intervention Note Substance Intervention: Raise the [...] brief intervention. Assessment completed by: DELMA Morgan [facility] 10-07-2023 Note Cardiovascular Labor atory Report FINAL [...] internal jugular vein was obtained. A 6 Divehi 11 cm sheath was inserted without difficulty. [...] left radial artery was obtained. A 6 Divehi glide sheath was inserted without difficulty. Bilateral [...] fraction, exertional shortness of breath, abnormal echocardiogram [facility] 10-07-2023 Note ---- Attestation signed by Carlos [...] QT Interval 404 QTC CALCULATION(BAZETT) 488 P [place] 50 R-[place] 0 T Wave [place] 61 Impression Sinus rhythm with occasional Premature ventricular complexes Left ventricular hypertrophy ( R in aVL ) Prolonged QT Abnormal ECG No previous ECGs available Confirmed by Daily MENDEZ, L.S. (2) on 10/06/2023 11:01:33 AM Lab Results Component Value Date TROPONINI 0.03 10/06/2023 Transthoracic echo (TTE) limited Result Date: 10/06/2023 1 1 [facility] [address] [place], [place] [phone] (fax) Echocardiogram-[facility] Name: TERA ROBERTO Study Date: 10/06/2023 10:25 AM B/P: 153 mmHg/104 mmHg HR: 96 bpm Date of : 1975 Location: [facility] Height: 69 in. Age: 48 year(s) [...] No pericardial effusion. Procedure Staff Reading Group: [facility] Referring Physician: Keith Edwards Legal Manager: Zina Altamirano [facility] Ordering Physician: DESTINEE COSTA No nuclear medicine results found for the past 12 months Relevant Imaging Results Transthoracic echo (TTE) limited 1 1 [facility] [address] [place] [address] [phone] (fax) Echocardiogram-[facility] Name: TERA ROBERTO Study Date: 10/06/2023 10:25 AM B/P: (more content not included)... [facility] 10-07-2023 Note Clinician attempted to provide AOD brief intervention. Physician at bedside with pt. Clinician will make another attempt [facility] 10-07-2023 Note Hospital Medicine Daily Progress Note - 10/07/2023 9:30 AM; Room: [address] [place] [address] Admission: 10/05/2023 7:45 PM; Length of stay: 2 days THE HOSPITALIST TEAM PREFERS TO USE 360T CHAT FOR COMMUNICATION 7AM-7PM. IF I DO NOT RESPOND WITHIN 15 MINUTES, PLEASE PAGE ME/CALL THROUGH THE [employer]. FROM 7PM-7AM, PLEASE PAGE [phone](COVR) Code Status: Full Code Barriers to Discharge: [...] Active Inpatient Problems Principal Problem: Heart failure ([facility]) Assessment and Plan Acute hypoxemic [...] Academy of Nutrition and Dietetics and the [place] [employer] of Enteral and Parenteral Nutrition, meets [...] LDL 178 10/06/2023 No results found for: [id number] , IRON , TIBC , C3 , C4 , DANTE , CANCA , ASO , PSA , CEA , CA125 , CA199 , AFP , CA153 Imaging Transthoracic echo (TTE) limited 1 1 [facility] [address] [place] [address] [phone] (fax) Echocardiogram-[facility] Name: TERA ROBERTO Study Date: 10/06/2023 10:25 AM B/P: 153 mmHg/104 mmHg HR: 96 bpm Date of : 1975 [facility] CENTER Height: 69 in. Age: 48 year(s) Patient Room: [facility] Weight: 255 lb. Gender: Male Patient Status: [...] is estimated at (more content not included)... [facility] 10-06-2023 Note Patient admitted to the hospital for: Heart failure. Chart echo from 10/06/2023 reports: EF 20-25%. Echo report qualifies for Cardiac Rehab services per CMS eligibility criteria. A Cardiac Rehab referral diagnosis must also meet CMS criteria. Stefany Rucker, RN, BSN Cardiology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
[2024-09-18 20:18] VITALS: BP 146/94; PULSE 93; TEMP 36.8; O2SAT 95; BMI 37.7
--- NOTE | 2024-09-18 22:43 | XR_ITS ---
The [address] [address] Patient Name: TERA ROBERTO MRN: [id number] date: 1975 Sex: M Assigned Patient Location: ER Current Patient Location: ER Accession/Order Number: [id number] Exam Date: 09/18/2024 22:58 Report Date: 09/19/2024 00:14 At the request of: MARCIAL DENSON Procedure: XR chest 1V EXAM: XR chest 1V HISTORY: Pain, recent rib fracture COMPARISON: Chest and left rib series dated 09/17/2024. TECHNIQUE: One view of the chest was obtained. FINDINGS: The cardiac silhouette is stable in size. There are mild left basilar opacities. There is no significant pneumothorax or right pleural effusion. There is a trace left pleural effusion. There are mildly displaced fractures of the lateral left fifth through seventh ribs. XR/XR chest 1V IMPRESSION: 1. Mild left basilar opacities that could represent atelectasis. 2. Trace left pleural effusion or hemothorax. 3. Fractures of the left lateral fifth through seventh ribs as described. Electronically authenticated by: Carline ROLLINS Date: 09/19/2024 00:14
--- NOTE | 2024-09-18 22:43 | ED_ITS ---
HPI HPI - General Adult General Chief complaint: Back Pain/Injury Stated complaint: RIB PAIN Time Seen by Provider: 09/18/24 21:12 Source: patient Mode of arrival: walk-in Limitations: no limitations History of Present Illness HPI narrative: 49-year-old male presents for left-sided chest pain. He had fallen recently and was seen in this emergency department and diagnosed with several rib fractures. He was kept overnight for observation and pain control and he went home at noon, about 11 hours ago. 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 He has not had any new injury and the same pain he has had, chest worse. It is severe. Related Data Home Medications ?Medication ?Instructions ?Recorded ?Confirmed glimepiride 4 mg tablet 8 mg PO DAILY 10/05/23 09/17/24 pioglitazone 30 mg tablet 30 mg PO DAILY 10/05/23 09/17/24 simvastatin 20 mg tablet 20 mg PO DAILY 10/05/23 09/17/24 venlafaxine 75 mg capsule,extended 75 mg PO DAILY 10/05/23 09/17/24 release 24 hr aspirin 81 mg chewable tablet 1 tab PO .qd 09/17/24 09/17/24 atorvastatin 80 mg tablet 80 mg PO .QHS 09/17/24 09/17/24 carvedilol 6.25 mg tablet 6.25 mg PO BID 09/17/24 09/17/24 dapagliflozin propanediol 10 mg 10 mg PO .qd 09/17/24 09/17/24 tablet (Farxiga) sacubitril 49 mg-valsartan 51 mg 1 tab PO BID 09/17/24 09/17/24 tablet (Entresto) spironolactone 25 mg tablet 12.5 mg PO .qd 09/17/24 09/17/24 Previous Rx's ?Medication ?Instructions ?Recorded hydrocodone 5 mg-acetaminophen 325 1 tab PO Q4H PRN rib pain #42 tabs 09/18/24 mg tablet Allergies Allergy/AdvReac Type Severity Reaction Status Date / Time No Known Drug Allergies Allergy Verified 09/18/24 20:18 Opioid HPI Opioid Management Most Recent Opioid Data: 2 Last Pain Scale 10 09/18/24 22:36 09/18/24 Last Pain Assessment 09/18/24 11:18 Last ORT Total Score 0 09/17/24 09:57 09/17/24 Last ORT Risk Category Low Risk 09/17/24 09:57 09/17/24 Review of Systems ROS Narrative A ten point review of systems is negative except as noted above. PFSH PFSH Medical History (Updated 09/19/24 @ 00:49 by Celio iMranda MD) Depression ?F32.A - Depression, unspecified (ICD-10) Diabetes type 2 ?E11.9 - Type 2 diabetes mellitus without complications (ICD-10) Hypertension ?I10 - Essential (primary) hypertension (ICD-10) Pneumonitis ?J98.4 - Other disorders of lung (ICD-10) Chest pain ?R07.9 - Chest pain, unspecified (ICD-10) Bronchitis ?J40 - Bronchitis, not specified as acute or chronic (ICD-10) Family History (Updated 09/17/24 @ 10:14 by Georgie Villa) Grandfather Family history of CHF (congestive heart failure) Grandmother Family history of diabetes mellitus Father Family history of hypertension Uncle Family history of stroke Social History (Updated 09/17/24 @ 10:15 by Georgie Villa) Within the past year, how often did you have a drink containing alcohol: 4 or more times a week Within the past year, how many standard drinks containing alcohol did you have on a typical day: 1 or 2 Within the past year, how often did you have six or more drinks on one occasion: less than monthly Total score: 1 Score interpretation: A score of 4 or more indicates drinking is likely to affect patient's safety. Smoking status: Current every day smoker Non-prescribed substance use: denies use Highest level of school completed/degree received: Associate degree: occupational, technical, vocational program Are you now , , , , never or living with a partner: In a typical week, how many times do you talk on the telephone with family, friends, or neighbors: 3 or more times per week How often do you get together with friends or relatives: 3 or more times per week How often do you attend confucianist or church services: never Do you belong to any clubs or organizations such as confucianist groups unions, fraternal or athletic groups, or school groups: no Total score: 2 Score interpretation: A score of greater than or equal to 2 indicates the lowest level of social isolation. Little interest or pleasure in doing things: not at all Feeling down, depressed, or hopeless: not at all Feel stressed/tense/nervous/anxious/difficulty sleeping: not at all Do you think of yourself as: straight/heterosexual Gender Identity: male Exam Narrative Exam Narrative: Nurses note and vital signs reviewed and patient is not hypoxic. General: The patient is standing when I walk into the room. He prefers not to sit. Skin: Warm, dry, no pallor noted. There is no rash noted. Head: Normocephalic, atraumatic Eye: Normal conjunctiva, no drainage Ears, Nose, Mouth, and Throat: oral mucosa is moist. Nares patent. Cardiovascular: Regular Rate and Rhythm, not tach Respiratory: He is not taking in deep breaths but breath sounds appear equal. No chest wall crepitus Back: non-tender GI: Soft and nontender Musculoskeletal: The patient has no evidence of calf tenderness, no pitting edema, symmetrical pulses noted bilaterally Neurological: A&O, normal speech Psychiatric: Cooperative Constitutional Vital Signs, click to edit/add: Last Vital Signs Temp 98.3 F 09/18/24 20:18 Pulse 93 H 09/18/24 20:18 Resp 19 09/18/24 20:18 BP 146/94 H 09/18/24 20:18 Pulse Ox 95 09/18/24 20:18 O2 Del Method Room Air 09/18/24 20:18 Course Vital Signs Vital signs: Vital Signs Temperature 98.3 F 09/18/24 20:18 Pulse Rate 93 H 09/18/24 20:18 Respiratory Rate 19 09/18/24 20:18 Blood Pressure 146/94 H 09/18/24 20:18 Pulse Oximetry 95 09/18/24 20:18 Oxygen Delivery Method Room Air 09/18/24 20:18 Temperature 98.3 F 09/18/24 20:18 Pulse Rate 93 H 09/18/24 20:18 Respiratory Rate 19 09/18/24 20:18 Blood Pressure 146/94 H 09/18/24 20:18 Pulse Oximetry 95 09/18/24 20:18 Oxygen Delivery Method Room Air 09/18/24 20:18 Medical Decision Making MDM Narrative Medical decision making narrative: Chest x-ray does not show a pneumothorax. He is known to have rib fractures. He is unable to control his pain at home and he will be readmitted for observation and pain control. Findings were discussed with the patient. I discussed options of discharge versus admission and he prefers to be admitted at this point. Differential Diagnosis Differential Diagnosis: Rib fracture, pneumothorax Lab Data Lab results reviewed: Yes I reviewed the patient's lab results Labs: Lab Results 09/18/24 Range/Units 23:11 WBC 9.7 (4.0-11.0) 10^3/uL RBC 4.71 (4.70-6.10) 10^6/uL Hgb 16.1 (14.0-18.0) g/dL Hct 46.8 (42.0-54.0) % MCV 99.4 H (80.0-94.0) fL MCH 34.2 H (25.9-34.0) pg MCHC 34.4 (29.9-35.2) g/dL RDW 11.9 (11.0-15.0) % Plt Count 275 (150-450) 10^3/uL MPV 9.5 (9.5-13.5) fL Neut % (Auto) 75.9 H (43.0-75.0) % Lymph % (Auto) 14.6 L (20.5-60.0) % [place] % (Auto) 8.1 (1.7-12.0) % Eos % (Auto) 0.6 L (0.9-7.0) % Baso % (Auto) 0.4 (0.2-2.0) % Neut # (Auto) 7.4 H (1.4-6.5) 10^3/uL Lymph # (Auto) 1.4 (1.2-3.8) 10^3/uL [place] # (Auto) 0.8 (0.3-0.8) 10^3/uL Eos # (Auto) 0.1 (0.0-0.7) 10^3/uL Baso # (Auto) 0.0 (0.0-0.1) 10^3/uL Abs Immat Gran (auto) 0.04 H (0.00-0.03) 10^3/uL Imm/Tot Granulo (auto) 0.4 (0.0-0.5) % Sodium 138 (136-145) mmol/L Potassium 4.6 (3.5-5.1) mmol/L Chloride 100 (98-107) mmol/L Carbon Dioxide 23.7 (21.0-32.0) mmol/L Anion Gap 18.9 BUN 33.0 H (7.0-18.0) mg/dL Creatinine 0.98 (0.70-1.30) mg/dL Est GFR ( Amer) >60 (>=60 mL/min/1.73m^2) Est GFR (Non-Af Amer) >60 (>=60 mL/min/1.73m^2) BUN/Creatinine Ratio 33.7 Glucose 152 H (74-106) mg/dL Calcium 9.5 (8.5-10.1) mg/dL Imaging Data Chest x-ray: Radiologist's impression: ITS Impressions Chest X-Ray 09/18/24 22:43 IMPRESSION: 1. Mild left basilar opacities that could represent atelectasis. 2. Trace left pleural effusion or hemothorax. 3. Fractures of the left lateral fifth through seventh ribs as described. Electronically authenticated by: Carline ROLLINS Date: 09/19/2024 00:14 ECG Data Attestation: I personally reviewed and interpreted this ECG as follows: (EKG on my interpretation shows sinus rhythm with a rate of 96) Discharge Plan Discharge Chief Complaint: Back Pain/Injury Clinical Impression: Multiple rib fractures Patient Disposition: Admitted as Observation Time of Disposition Decision: 00:49 Condition: Fair Prescriptions / Home Meds: No Action venlafaxine 75 mg capsule,extended release 24hr 75 mg PO DAILY simvastatin 20 mg tablet 20 mg PO DAILY glimepiride 4 mg tablet 8 mg PO DAILY pioglitazone 30 mg tablet 30 mg PO DAILY atorvastatin 80 mg tablet 80 mg PO .QHS aspirin 81 mg tablet,chewable 1 tab PO .qd Rx Instructions: WITH BREAKFAST carvedilol 6.25 mg tablet 6.25 mg PO BID dapagliflozin propanediol [Farxiga] 10 mg tablet 10 mg PO .qd sacubitril-valsartan [Entresto] 49-51 mg tablet 1 tab PO BID spironolactone 25 mg tablet 12.5 mg PO .qd hydrocodone-acetaminophen 5-325 mg tablet 1 tab PO Q4H PRN (Reason: rib pain) Qty: 42 0RF Print Language: French Referrals: Donn Hall MD [Primary Care Provider] - 1 week
--- NOTE | 2024-09-18 22:43 | ECG_ITS ---
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
[2024-09-18 23:15] VITALS: PULSE 96
[2024-09-18 23:20] LABS: Basophils Percent Auto 0.4 % (0.2-2.0); Eosinophils Absolute Auto 0.1 10^3/uL (0.0-0.7); Eosinophils Percent Auto 0.6 % (0.9-7.0); Hematocrit 46.8 % (42.0-54.0); Hemoglobin 16.1 g/dL (14.0-18.0); Immature Granulocytes Abs Auto 0.04 10^3/uL (0.00-0.03); Immature Granulocytes Pct Auto 0.4 % (0.0-0.5); Lymphocytes Absolute Auto 1.4 10^3/uL (1.2-3.8); Lymphocytes Percent Auto 14.6 % (20.5-60.0); Mean Corpuscular HGB Conc 34.4 g/dL (29.9-35.2); Mean Corpuscular Hemoglobin 34.2 pg (25.9-34.0); Mean Corpuscular Volume 99.4 fL (80.0-94.0); Mean Platelet Volume 9.5 fL (9.5-13.5); Monocytes Absolute Auto 0.8 10^3/uL (0.3-0.8); Monocytes Percent Auto 8.1 % (1.7-12.0); Neutrophils Absolute Auto 7.4 10^3/uL (1.4-6.5); Neutrophils Percent Auto 75.9 % (43.0-75.0); Platelet Count 275 10^3/uL (150-450); Red Blood Count 4.71 10^6/uL (4.70-6.10); Red Cell Distribution Width 11.9 % (11.0-15.0); White Blood Count 9.7 10^3/uL (4.0-11.0)
[2024-09-18 23:34] LABS: Anion Gap 18.9; BUN Creatinine Ratio 33.7; Calcium 9.5 mg/dL (8.5-10.1); Carbon Dioxide 23.7 mmol/L (21.0-32.0); Chloride 100 mmol/L (98-107); Estimated GFR (African America >60 (>=60 mL/min/1.73m^2); Estimated GFR (Non-African Ame >60 (>=60 mL/min/1.73m^2); Glucose 152 mg/dL (74-106); Potassium 4.6 mmol/L (3.5-5.1); Sodium 138 mmol/L (136-145)
[2024-09-18] MEDS: MORPHINE SULFATE 4 MG/ML VIAL IV (23:38)
[2024-09-19] VITALS (13 sets, daily range): BP systolic 113–159; BP diastolic 7–95; PULSE 70–87; TEMP 36.3–36.6; O2SAT 94–98; BMI 37.4
[2024-09-19] MEDS: MORPHINE SULFATE 4 MG/ML VIAL IV (00:40)
--- OUTSIDE RECORDS SUMMARY | 2024-09-19 01:49 | XMS_ITS | CCD ---
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 Name Role Phone RAFAEL, DR ALTAMIRANO Admitting [...] Unavailable KATMARCIAL BATES Attending Unavailable ZIEBER, DR JAOCB Gonsalves Consulting Unavailable MARCIAL DENSON Consulting Unavailable [...] disease (2 sources) Atherosclerotic heart disease of [place] coronary artery without angina pectoris; Translations: [Atherosclerotic heart disease of [place] coronary artery without angina pectoris] Onset: 10-13-2023 [...] Range Facility Office Visiton 12-05-2023 Follow-up visit [id number] Tera Roberto 1975 M Date Provider Department Center 12/05/2023 YAKELIN MICHELLE TATE Abreu Family History Problem Relation Age of Onset Heart attack Maternal Grandfather Family Status - Relation Status Age at Maternal Grandfather Level of Service:93331 SD OFFICE/OUTPATIENT ESTABLISHED MOD MDM 30 MIN Normal [facility] 36on 12-01-2023 36 Patient informed. Normal [facility] 36on 11-29-2023 36 Please let him know his EF improved to 55%. He no longer needs to wear the LifeVest. Follow-up as scheduled. Thanks! Normal [facility] Telephoneon 11-29-2023 Telephone [phone] Tera Roberto 1975 M Date Provider Department Center 11/29/2023 ZACK OLSON Family History Problem Relation Age of Onset Heart attack Maternal Grandfather Family Status - Relation Status Age at Maternal Grandfather Normal [facility] 36on 11-02-2023 36 2nd attempt: LMOM Normal [facility] Follow-Upon 10-13-2023 Follow-Up [id number] Tera Roberto 1975 [facility] Provider Department Center 10/13/2023 166-ZACK MONTGOMERY TATE [facility] Family History Problem Relation Age of Onset Heart attack Maternal Grandfather Family Status - Relation Status Age at Maternal Grandfather Level of Service:49241 SD OFFICE/OUTPATIENT ESTABLISHED MOD MDM 30 MIN Reason for Visit and Comments: Hospital Follow-up [832] Congestive Heart Failure [127] Hypertension [265738] [facility] 10-11-2023 36 Called patient and left a message to call me to schedule a pulmonary hospital follow up with either Dr. Valenzuela or Dr. Diamond. [facility] 10-10-2023 36 Discharge date: Call date: [...] to thank everyone for saving his life. [facility] Documentationon 10-10-2023 Documentation [id number] CamilleTera 1975 M Date Provider Department Center 10/10/202343558-ADFLPIOROSI [facility] [place] [facility] No family history on file Reason for Visit and Comments: HF inpatient satisfaction survey sent. [Other] [facility] Telephoneon 10-10-2023 Telephone [phone] CamilleTera 1975 M Date Provider Department Center 10/10/202365103-OJGJCKWROSI [facility] No family history on file [facility] 3010-09-2023 30 The patient is Moderately [...] and behaviors that affect risk of falls [place] fall precautions as indicated by assessment Problem: [...] the next 3 months Outcome: Progressing Normal [facility] BASIC METABOLIC PANELon 03-0 Anion gap [Moles/Vol] 12 mmol/L Normal 7-20 [facility] Comment on above: Performed By: #### L [id number] ####[facility] (BEAKER)[address] [place] [address] Calcium [Mass/Vol] 8.9 mg/dL Normal 8.6-10.3 [facility] Comment on above: Performed By: #### L [id number] ####[facility] (BEAKER)[address] [facility] [place] [address] Chloride [Moles/Vol] 104 mmol/L Normal 98-107 [facility] Comment on above: Performed By: #### L [id number] ####[facility] (BEAKER)[address] [facility] [place] [address] CO2 [Moles/Vol] 25 mmol/L Normal 21-31 [facility] Comment on above: Performed By: #### L [id number] ####[facility] (BEAKER)[address] [place] [address] Creatinine [Mass/Vol] 0.89 mg/dL Normal 0.70-1.30 [facility] Comment on above: Performed By: #### L [id number] ####[facility] ([facility])[address] [place] [address] GLOMERULAR FILTRATION RATE ML/MIN/1.73 SQ M.PREDICTED 104.4 mL/min/1.73m*2 Normal >60.0 [facility] Comment on above: Result Comment: [facility]???s estimated glomerular filtration rate (eGFR) will [...] of individuals. Performed By: #### L [id number] ####[facility] ([facility])[address] [place] [address] Glucose [Mass/Vol] 119 mg/dL High 70-100 [facility] Comment on above: Performed By: #### L [id number] ####[facility] ([facility])[address] [place] [address] Potassium [Moles/Vol] 4.1 mmol/L Normal 3.5-5.1 [facility] Comment on above: Performed By: #### L [id number] ####[facility] ([facility])[address] [place] [address] Sodium [Moles/Vol] 137 mmol/L Normal 136-145 [facility] Comment on above: Performed By: #### L [id number] ####[facility] ([facility])[address] [place] [address] Urea nitrogen [Mass/Vol] 29 mg/dL High 7-25 [facility] Comment on above: Performed By: #### L [id number] ####[facility] ([facility])[address] [place] [address] UREA NITROGEN/CREATININE (MASS RATIO) IN SER/PLAS 32.6 Normal [facility] Comment on above: Performed By: #### L [id number] ####[facility] ([facility])[address] [place] [address] CBC WITH AUTO DIFFERENTIALon 10-09-2023 Basophils (Bld) [#/Vol] 0.04 10*3/uL Normal 0.00-0.20 [facility] Comment on above: Performed By: #### L [id number] ####[facility] ([facility])[address] [place] [address] Basophils/100 WBC (Bld) 0.7 % Normal 0.0-1.0 [facility] Comment on above: Performed By: #### L [id number] ####[facility] ([facility])[address] [place] [address] Eosinophils (Bld) [#/Vol] 0.12 10*3/uL Normal 0.00-0.50 [facility] Comment on above: Performed By: #### L [id number] ####[facility] ([facility])[address] [place] [address] Eosinophils/100 WBC (Bld) 2.1 % Normal 0.0-6.0 [facility] Comment on above: Performed By: #### L [id number] ####[facility] ([facility])[address] [place] [address] Erythrocyte distribution width (RBC) [Ratio] 12.0 % Normal 11.5-15.0 [facility] Comment on above: Performed By: #### L [id number] ####[facility] ([facility])[address] [place] [address] ERYTHROCYTE MEAN CORPUSCULAR HEMOGLOBIN CONCENTRATION (G/DL) BY AUTOMATED 34.2 g/dL Normal 32.0-35.0 [facility] Comment on above: Performed By: #### L [id number] ####[facility] (BEAKER)[address] [place] [address] Hematocrit (Bld) [Volume fraction] 47.7 % Normal 39.0-55.0 [facility] Comment on above: Performed By: #### L [id number] ####[facility] (BEAKER)[address] [place] [address] Hemoglobin (Bld) [Mass/Vol] 16.3 g/dL Normal 13.0-17.0 [facility] Comment on above: Performed By: #### L [id number] ####[facility] (BEAKER)[address] [place] [address] Immature granulocytes (Bld) [#/Vol] 0.03 10*3/uL Normal 0.00-0.20 [facility] Comment on above: Performed By: #### L [id number] ####[facility] (BEAKER)[address] [place] [address] Immature granulocytes/100 WBC (Bld) 0.5 % Normal 0.0-1.0 [facility] Comment on above: Performed By: #### L [id number] ####[facility] (BEAKER)[address] [place] [address] Lymphocytes (Bld) [#/Vol] 1.51 10*3/uL Normal 1.20-4.00 [facility] Comment on above: Performed By: #### L [id number] ####[facility] (BEAKER)[address] [place] [address] Lymphocytes/100 WBC (Bld) 26.2 % Normal 20.0-45.0 [facility] Comment on above: Performed By: #### L [id number] ####[facility] (BEAKER)[address] [place] [address] MCH (RBC) [Entitic mass] 35.0 pg High 27.0-33.0 [facility] Comment on above: Performed By: #### L [id number] ####[facility] (BEAKER)[address] [place] [address] MCV (RBC) [Entitic vol] 102.4 fL High 82.0-98.0 [facility] Comment on above: Performed By: #### L [id number] ####[facility] (BEAKER)[address] [place] [address] Monocytes (Bld) [#/Vol] 0.80 10*3/uL Normal 0.10-1.00 [facility] Comment on above: Performed By: #### L [id number] ####[facility] (AKER)[address] [place] [address] Monocytes/100 WBC (Bld) 13.9 % High 5.0-12.0 [facility] Comment on above: Performed By: #### L [id number] ####[facility] (AKER)[address] [place] [address] Neutrophils (Bld) [#/Vol] 3.26 10*3/uL Normal 1.60-7.60 [facility] Comment on above: Performed By: #### L [id number] ####[facility] (AKER)[address] [place] [address] Neutrophils/100 WBC (Bld) 56.6 % Normal 40.0-72.0 [facility] Comment on above: Performed By: #### L [id number] ####[facility] (BEAKER)[address] [place] [address] NRBC (PER 100 WBCS) BY AUTOMATED COUNT 0.0 % Normal 0 [facility] Comment on above: Performed By: #### L [id number] ####[facility] (BEAKER)[address] [place] [address] PLATELETS (10*3/UL) IN BLOOD AUTOMATED COUNT 181 10*3/uL Normal 150-400 [facility] Comment on above: Performed By: #### L [id number] ####[facility] (BEAKER)[address] [place] [address] RBC (Bld) [#/Vol] 4.66 10*6/uL Normal 4.20-5.70 [facility] Comment on above: Performed By: #### L [id number] ####[facility] ([facility])[address] [place] [address] WBC (Bld) [#/Vol] 5.76 10*3/uL Normal 4.00-10.60 [facility] Comment on above: Performed By: #### L [id number] ####[facility] ([facility])[address] [place] [address] MAGNESIUMon 10-09-2023 Magnesium [Mass/Vol] 2.1 mg/dL Normal 1.9-2.7 [facility] Comment on above: Performed By: #### L [id number] #### [facility] ([facility]) [address] [place] [address] POCT GLUCOSE METER UNSOLICIT ED RESULTSon 10-09-2023 Glucose [Mass/Vol] 160 mg/dL High 70-105 [facility] Comment on above: Order Comment: Waive d Testing in the ED is performed under the ED CLIA certificate #[id number]. Result Comment: [email or web address] Performed By: #### L [id number] ####[facility] ([facility])[address] [place] [address] Glucose [Mass/Vol] 148 mg/dL High 70-105 [facility] Comment on above: Order Comment: Waive d Testing in the ED is performed under the ED CLIA certificate #[id number]. Result Comment: [email or web address] Performed By: #### L [id number] ####[facility] ([facility])[address] [place] [address] Glucose [Mass/Vol] 146 mg/dL High 70-105 [facility] Comment on above: Order Comment: Waive d Testing in the ED is performed under the ED CLIA certificate #[id number]. Result Comment: [email or web address] Performed By: #### L [id number] ####[facility] ([facility])[address] [place] [address] 30on 10-08-2023 30 The patient is Moderately [...] and behaviors that affect risk of falls [place] fall precautions as indicated by assessment Educate [...] and prevent overall improvement and discharge Normal [facility] 30 The patient is Moderately Stable - Low risk of patient condition declining or worsening The patient's goals for the shift include comfort The clinical goals for the shift include hemodynamically stable Problem: Pain - Adult Goal: Verbalizes/displays adequate comfort level or baseline comfort level Outcome: Progressing Problem: Safety - Adult Goal: Free from fall injury Outcome: Progressing Flowsheets (Taken 10/08/2023 0758) Free from fall injury: Assess patient frequently for physical needs Identify cognitive and physical deficits and behaviors that affect risk of falls [place] fall precautions as indicated by assessment Problem: [...] the next 3 months Outcome: Progressing Normal [facility] 30 The patient is Moderately Stable [...] and behaviors that affect risk of falls [place] fall precautions as indicated by assessment Educate [...] conditions affect the heart Outcome: Progressing Normal [facility] BASIC METABOLIC PANELon 03-0 Anion gap [Moles/Vol] 15 mmol/L Normal 7-20 [facility] Comment on above: Performed By: #### L [id number] #### [facility] (BEAKER) [address] [place] [address] Calcium [Mass/Vol] 9.0 mg/dL Normal 8.6-10.3 [facility] Comment on above: Performed By: #### L [id number] #### [facility] (BEAKER) [address] [place] [address] Chloride [Moles/Vol] 101 mmol/L Normal 98-107 [facility] Comment on above: Performed By: #### L [id number] #### [facility] (BEAKER) [address] [place] [address] CO2 [Moles/Vol] 25 mmol/L Normal 21-31 [facility] Comment on above: Performed By: #### L [id number] #### [facility] (BEAKER) [address] [place] [address] Creatinine [Mass/Vol] 1.01 mg/dL Normal 0.70-1.30 [facility] Comment on above: Performed By: #### L [id number] #### [facility] ([facility] [address] [place] [address] GLOMERULAR FILTRATION RATE ML/MIN/1.73 SQ M.PREDICTED 90.6 mL/min/1.73m*2 Normal >60.0 [facility] Comment on above: Result Comment: [facility]???s estimated glomerular filtration rate (eGFR) will [...] individuals. Performed By: #### L [id number] #### [facility] ([facility]) [address] [place] [address] Glucose [Mass/Vol] 160 mg/dL High 70-100 [facility] Comment on above: Performed By: #### L [id number] #### [facility] ([facility]) [address] [place] [address] Potassium [Moles/Vol] 4.1 mmol/L Normal 3.5-5.1 [facility] Comment on above: Performed By: #### L [id number] #### [facility] ([facility]) [address] [place] [address] Sodium [Moles/Vol] 137 mmol/L Normal 136-145 [facility] Comment on above: Performed By: #### L [id number] #### [facility] ([facility]) [address] [place] [address] Urea nitrogen [Mass/Vol] 34 mg/dL High 7-25 [facility] Comment on above: Performed By: #### L [id number] #### [facility] ([facility]) [address] [place] [address] UREA NITROGEN/CREATININE (MASS RATIO) IN SER/PLAS 33.7 Normal [facility] Comment on above: Performed By: #### L [id number] #### [facility] ([facility]) [address] [place] [address] CBC WITH AUTO DIFFERENTIALon 10-08-2023 Basophils (Bld) [#/Vol] 0.06 10*3/uL Normal 0.00-0.20 [facility] Comment on above: Performed By: #### L [id number] #### [facility] ([facility]) [address] [place] [address] Basophils/100 WBC (Bld) 1.0 % Normal 0.0-1.0 [facility] Comment on above: Performed By: #### L [id number] #### [facility] ([facility]) [address] [place] [address] Eosinophils (Bld) [#/Vol] 0.12 10*3/uL Normal 0.00-0.50 [facility] Comment on above: Performed By: #### L [id number] #### [facility] (BEAKER) [address] [place] [address] Eosinophils/100 WBC (Bld) 2.0 % Normal 0.0-6.0 [facility] Comment on above: Performed By: #### L [id number] #### [facility] ([facility]) [address] [place] [address] Erythrocyte distribution width (RBC) [Ratio] 12.2 % Normal 11.5-15.0 [facility] Comment on above: Performed By: #### L [id number] #### [facility] ([facility]) [address] [place] [address] ERYTHROCYTE MEAN CORPUSCULAR HEMOGLOBIN CONCENTRATION (G/DL) BY AUTOMATED 33.5 g/dL Normal 32.0-35.0 [facility] Comment on above: Performed By: #### L [id number] #### [facility] ([facility]) [address] [address] Hematocrit (Bld) [Volume fraction] 48.0 % Normal 39.0-55.0 [facility] Comment on above: Performed By: #### L [id number] #### [facility] (BEAKER) [address] [place] [address] Hemoglobin (Bld) [Mass/Vol] 16.1 g/dL Normal 13.0-17.0 [facility] Comment on above: Performed By: #### L [id number] #### [facility] (BEAKER) [address] [address] Immature granulocytes (Bld) [#/Vol] 0.02 10*3/uL Normal 0.00-0.20 [facility] Comment on above: Performed By: #### L [id number] #### [facility] (BEAKER) [address] [place] [address] Immature granulocytes/100 WBC (Bld) 0.3 % Normal 0.0-1.0 [facility] Comment on above: Performed By: #### L [id number] #### [facility] ([facility]) [address] [place] [address] Lymphocytes (Bld) [#/Vol] 1.47 10*3/uL Normal 1.20-4.00 [facility] Comment on above: Performed By: #### L [id number] #### [facility] ([facility]) [address] [place] [address] Lymphocytes/100 WBC (Bld) 24.6 % Normal 20.0-45.0 [facility] Comment on above: Performed By: #### L [id number] #### [facility] ([facility]) [address] [place] [address] MCH (RBC) [Entitic mass] 34.8 pg High 27.0-33.0 [facility] Comment on above: Performed By: #### L [id number] #### [facility] ([facility]) [address] [place] [address] MCV (RBC) [Entitic vol] 103.9 fL High 82.0-98.0 [facility] Comment on above: Performed By: #### L [id number] #### [facility] ([facility]) [address] [place] [address] Monocytes (Bld) [#/Vol] 0.85 10*3/uL Normal 0.10-1.00 [facility] Comment on above: Performed By: #### L [id number] #### [facility] ([facility]) [address] [place] [address] Monocytes/100 WBC (Bld) 14.2 % High 5.0-12.0 [facility] Comment on above: Performed By: #### L [id number] #### [facility] ([facility]) [address] [place] [address] Neutrophils (Bld) [#/Vol] 3.46 10*3/uL Normal 1.60-7.60 [facility] Comment on above: Performed By: #### L [id number] #### [facility] ([facility]) [address] [place] [address] Neutrophils/100 WBC (Bld) 57.9 % Normal 40.0-72.0 [facility] Comment on above: Performed By: #### L [id number] #### [facility] ([facility]) [address] [place] [address] NRBC (PER 100 WBCS) BY AUTOMATED COUNT 0.0 % Normal 0 [facility] Comment on above: Performed By: #### L [id number] #### [facility] ([facility]) [address] [place] [address] PLATELETS (10*3/UL) IN BLOOD AUTOMATED COUNT 196 10*3/uL Normal 150-400 [facility] Comment on above: Performed By: #### L [id number] #### [facility] ([facility]) [address] [place] [address] RBC (Bld) [#/Vol] 4.62 10*6/uL Normal 4.20-5.70 [facility] Comment on above: Performed By: #### L [id number] #### [facility] ([facility]) [address] [place] [address] WBC (Bld) [#/Vol] 5.98 10*3/uL Normal 4.00-10.60 [facility] Comment on above: Performed By: #### L [id number] #### [facility] ([facility]) [address] [place] [address] POCT GLUCOSE METER UNSOLICIT ED RESULTSon 10-08-2023 Glucose [Mass/Vol] 171 mg/dL High 70-105 [facility] Comment on above: Order Comment: Waive d Testing in the ED is performed under the ED CLIA certificate #[id number]. Result Comment: [email or web address] Performed By: #### L [id number] ####[facility] ([facility])[address] [place] [address] Glucose [Mass/Vol] 128 mg/dL High 70-105 [facility] Comment on above: Order Comment: Waive d Testing in the ED is performed under the ED CLIA certificate #[id number]. Result Comment: [email or web address] Performed By: #### L [id number] ####[facility] (BEAKER)[address] [facility] [address] Glucose [Mass/Vol] 170 mg/dL High 70-105 [facility] Comment on above: Order Comment: Waive d Testing in the ED is performed under the ED CLIA certificate #[id number]. Result Comment: [email or web address] Performed By: #### L [id number] ####[facility] (BEAKER)[address] [facility] [address] Glucose [Mass/Vol] 174 mg/dL High 70-105 [facility] Comment on above: Order Comment: Waive d Testing in the ED is performed under the ED CLIA certificate #[id number]. Result Comment: [email or web address] Performed By: #### L [id number] ####[facility] (BEAKER)[address] [facility] [address] 30on 10-07-2023 30 The patient is Moderately [...] and behaviors that affect risk of falls [place] fall precautions as indicated by assessment Educate [...] the next 3 months Outcome: Progressing Normal [facility] Og 10-07-2023 SAPNAS -- Attestation signed by Yakelin Herrera MD at 10/07/2023 11:02 AM Yakelin Herrera MD, MPH, [facility], [facility], [facility] Interventional Cardiology Pager Email: [email or web address] Patient: Tera Roberto Procedure Information Date/Time: 10/07/23 1700 Procedures: Coronary angiography Right heart cath Location: [facility]ER 3 / [facility] (Cath) Providers: Yakelin Herrera MD Clinical information reviewed: Allergies Physical Exam Airway Mallampati: III TM distance: >3 FB Neck ROM: full Cardiovascular Rhythm: regular Rate: normal Dental Pulmonary Abdominal Anesthesia Plan ASA 3 Anesthetic plan and risks discussed with patient. Use of blood products discussed with patient who. Plan discussed with attending. Additional Equipment Requests Normal [facility] BASIC METABOLIC PANELon 03-0 Anion gap [Moles/Vol] 14 mmol/L Normal 7-20 [facility] Comment on above: Performed By: #### L [id number] #### [facility] (BEAKER) [address] [place] [address] Calcium [Mass/Vol] 9.5 mg/dL Normal 8.6-10.3 [facility] Comment on above: Performed By: #### L [id number] #### [facility] (BEAKER) [address] [place] [address] Chloride [Moles/Vol] 101 mmol/L Normal 98-107 [facility] Comment on above: Performed By: #### L [id number] #### [facility] (BEAKER) [address] [place] [address] CO2 [Moles/Vol] 26 mmol/L Normal 21-31 [facility] Comment on above: Performed By: #### L [id number] #### [facility] ([facility]) [address] [place] [address] Creatinine [Mass/Vol] 0.96 mg/dL Normal 0.70-1.30 [facility] Comment on above: Performed By: #### L [id number] #### [facility] ([facility]) [address] [place] [address] GLOMERULAR FILTRATION RATE ML/MIN/1.73 SQ M.PREDICTED 96.3 mL/min/1.73m*2 Normal >60.0 [facility] Comment on above: Result Comment: [facility]???s estimated glomerular filtration rate (eGFR) will [...] individuals. Performed By: #### L [id number] #### [facility] ([facility]) [address] [place] [address] Glucose [Mass/Vol] 208 mg/dL High 70-100 [facility] Comment on above: Performed By: #### L [id number] #### [facility] ([facility]) [address] [place] [address] Potassium [Moles/Vol] 3.9 mmol/L Normal 3.5-5.1 [facility] Comment on above: Performed By: #### L [id number] #### [facility] ([facility]) [address] [place] [address] Sodium [Moles/Vol] 137 mmol/L Normal 136-145 [facility] Comment on above: Performed By: #### L [id number] #### [facility] ([facility]) [address] [place] [address] Urea nitrogen [Mass/Vol] 30 mg/dL High 7-25 [facility] Comment on above: Performed By: #### L [id number] #### [facility] ([facility]) [address] [place] [address] UREA NITROGEN/CREATININE (MASS RATIO) IN SER/PLAS 31.3 Normal [facility] Comment on above: Performed By: #### L [id number] #### [facility] ([facility]) [address] [place] [address] CBC WITH AUTO DIFFERENTIALon 10-07-2023 Basophils (Bld) [#/Vol] 0.03 10*3/uL Normal 0.00-0.20 [facility] Comment on above: Performed By: #### L [id number] #### [facility] ([facility]) [address] [place] [address] Basophils/100 WBC (Bld) 0.6 % Normal 0.0-1.0 [facility] Comment on above: Performed By: #### L [id number] #### [facility] ([facility]) [address] [place] [address] Eosinophils (Bld) [#/Vol] 0.11 10*3/uL Normal 0.00-0.50 [facility] Comment on above: Performed By: #### L [id number] #### [facility] ([facility]) [address] [place] [address] Eosinophils/100 WBC (Bld) 2.0 % Normal 0.0-6.0 [facility] Comment on above: Performed By: #### L [id number] #### [facility] ([facility]) [address] [place] [address] Erythrocyte distribution width (RBC) [Ratio] 12.2 % Normal 11.5-15.0 [facility] Comment on above: Performed By: #### L [id number] #### [facility] ([facility]) [address] [place] [address] ERYTHROCYTE MEAN CORPUSCULAR HEMOGLOBIN CONCENTRATION (G/DL) BY AUTOMATED 34.3 g/dL Normal 32.0-35.0 [facility] Comment on above: Performed By: #### L [id number] #### [facility] ([facility]) [address] [place] [address] Hematocrit (Bld) [Volume fraction] 50.5 % Normal 39.0-55.0 [facility] Comment on above: Performed By: #### L [id number] #### [facility] ([facility]) [address] [place] [address] Hemoglobin (Bld) [Mass/Vol] 17.3 g/dL High 13.0-17.0 [facility] Comment on above: Performed By: #### L [id number] #### [facility] ([facility]) [address] [place] [address] Immature granulocytes (Bld) [#/Vol] 0.02 10*3/uL Normal 0.00-0.20 [facility] Comment on above: Performed By: #### L [id number] #### [facility] ([facility]) [address] [place] [address] Immature granulocytes/100 WBC (Bld) 0.4 % Normal 0.0-1.0 [facility] Comment on above: Performed By: #### L [id number] #### [facility] ([facility]) [address] [place] [address] Lymphocytes (Bld) [#/Vol] 1.32 10*3/uL Normal 1.20-4.00 [facility] Comment on above: Performed By: #### L [id number] #### [facility] ([facility]) [address] [place] [address] Lymphocytes/100 WBC (Bld) 24.3 % Normal 20.0-45.0 [facility] Comment on above: Performed By: #### L [id number] #### [facility] ([facility]) [address] [place] [address] MCH (RBC) [Entitic mass] 34.9 pg High 27.0-33.0 [facility] Comment on above: Performed By: #### L [id number] #### [facility] ([facility]) [address] [place] [address] MCV (RBC) [Entitic vol] 102.0 fL High 82.0-98.0 [facility] Comment on above: Performed By: #### L [id number] #### [facility] ([facility]) [address] [place] [address] Monocytes (Bld) [#/Vol] 0.68 10*3/uL Normal 0.10-1.00 [facility] Comment on above: Performed By: #### L [id number] #### [facility] ([facility]) [address] [place] [address] Monocytes/100 WBC (Bld) 12.5 % High 5.0-12.0 [facility] Comment on above: Performed By: #### L [id number] #### [facility] ([facility]) [address] [place] [address] Neutrophils (Bld) [#/Vol] 3.27 10*3/uL Normal 1.60-7.60 [facility] Comment on above: Performed By: #### L [id number] #### [facility] ([facility]) [address] [place] [address] Neutrophils/100 WBC (Bld) 60.2 % Normal 40.0-72.0 [facility] Comment on above: Performed By: #### L [id number] #### [facility] ([facility]) [address] [place] [address] NRBC (PER 100 WBCS) BY AUTOMATED COUNT 0.0 % Normal 0 [facility] Comment on above: Performed By: #### L [id number] #### [facility] ([facility]) [address] [place] [address] PLATELETS (10*3/UL) IN BLOOD AUTOMATED COUNT 216 10*3/uL Normal 150-400 [facility] Comment on above: Performed By: #### L [id number] #### [facility] ([facility]) [address] [place] [address] RBC (Bld) [#/Vol] 4.95 10*6/uL Normal 4.20-5.70 [facility] Comment on above: Performed By: #### L [id number] #### [facility] ([facility]) [address] [place] [address] WBC (Bld) [#/Vol] 5.43 10*3/uL Normal 4.00-10.60 [facility] Comment on above: Performed By: #### L [id number] #### [facility] ([facility]) [address] [place] [address] CONSULTon 10-07-2023 CONSULT -- Attestation signed by [...] No Food Insecurity (more content not included)... [facility] HPon 10-07-2023 HP -- Attestation signed by Yakelin Herrera MD at 10/07/2023 11:02 AM Yakelin Herrera MD, MPH, [facility], [facility], [facility] Interventional Cardiology Pager Email: [email or web address] H&P reviewed. Patient with multiple coronary [...] were addressed and answered. Florina Prasad MD Cap Blocker - PGY5 [facility] Normal [facility] POCT GLUCOSE METER UNSOLICIT ED RESULTSon 10-07-2023 Glucose [Mass/Vol] 173 mg/dL High 70-105 [facility] Comment on above: Order Comment: Waive d Testing in the ED is performed under the ED CLIA certificate #[id number]. Result Comment: [email or web address] Performed By: #### L [id number] #### [facility] ([facility]) [address] [place] [address] Glucose [Mass/Vol] 169 mg/dL High 70-105 [facility] Comment on above: Order Comment: Waive d Testing in the ED is performed under the ED CLIA certificate #[id number]. Result Comment: [email or web address] Performed By: #### L [id number] ####[facility] ([facility])[address] [place] [address] Glucose [Mass/Vol] 242 mg/dL High 70-105 [facility] Comment on above: Order Comment: Waive d Testing in the ED is performed under the ED CLIA certificate #[id number]. Result Comment: [email or web address] Performed By: #### L [id number] #### [facility] ([facility]) [address] [place] [address] 30on 10-06-2023 30 The patient is Moderately [...] and behaviors that affect risk of falls [place] fall precautions as indicated by assessment Educate [...] and prevent overall improvement and discharge Normal [facility] 30 The patient is Moderately Stable - Low risk of patient condition declining or worsening The patient's goals for the shift include rest The clinical goals for the shift include comfort/vss Normal [facility] 30 The patient is Moderately Stable [...] and maintained or improved Outcome: Progressing Normal [facility] B-TYPE NATRIURETIC PEPTIDEon 10-06-2023 Natriuretic peptide B (Bld) [Mass/Vol] 752 pg/mL High 0-100 [facility] Comment on above: Performed By: #### L [id number] #### [facility] ([facility]) [address] [place] [address] Natriuretic peptide B (Bld) [Mass/Vol] 711 pg/mL High 0-100 [facility] Comment on above: Performed By: #### L [id number] #### [facility] ([facility]) [address] [place] [address] BASIC METABOLIC PANELon 09-09 Anion gap [Moles/Vol] 16 mmol/L Normal 7-20 [facility] Comment on above: Performed By: #### L [id number] ####[facility] ([facility])[address] [place] [address] Calcium [Mass/Vol] 9.7 mg/dL Normal 8.6-10.3 [facility] Comment on above: Performed By: #### L [id number] ####[facility] ([facility])[address] [place] [address] Chloride [Moles/Vol] 99 mmol/L Normal 98-107 [facility] Comment on above: Performed By: #### L [id number] ####[facility] ([facility])[address] [place] [address] CO2 [Moles/Vol] 26 mmol/L Normal 21-31 [facility] Comment on above: Performed By: #### L [id number] ####[facility] ([facility])[address] [place] [address] Creatinine [Mass/Vol] 1.03 mg/dL Normal 0.70-1.30 [facility] Comment on above: Performed By: #### L [id number] ####[facility] ([facility])[address] [place] [address] GLOMERULAR FILTRATION RATE ML/MIN/1.73 SQ M.PREDICTED 88.5 mL/min/1.73m*2 Normal >60.0 [facility] Comment on above: Result Comment: [facility]???s estimated glomerular filtration rate (eGFR) will [...] of individuals. Performed By: #### L [id number] ####[facility] ([facility])[address] [place] [address] Glucose [Mass/Vol] 185 mg/dL High 70-100 [facility] Comment on above: Performed By: #### L [id number] ####[facility] ([facility])[address] [place] [address] Potassium [Moles/Vol] 4.3 mmol/L Normal 3.5-5.1 [facility] Comment on above: Performed By: #### L [id number] ####[facility] ([facility])[address] [place] [address] Sodium [Moles/Vol] 137 mmol/L Normal 136-145 [facility] Comment on above: Performed By: #### L [id number] ####[facility] ([facility])[address] [place] [address] Urea nitrogen [Mass/Vol] 22 mg/dL Normal 7-25 [facility] Comment on above: Performed By: #### L [id number] ####[facility] ([facility])[address] [place] [address] UREA NITROGEN/CREATININE (MASS RATIO) IN SER/PLAS 21.4 Normal [facility] Comment on above: Performed By: #### L [id number] ####[facility] ([facility])[address] [place] [address] Anion gap [Moles/Vol] 16 mmol/L Normal 7-20 [facility] Comment on above: Performed By: #### L [id number] #### [facility] ([facility]) [address] [place] [address] Calcium [Mass/Vol] 9.6 mg/dL Normal 8.6-10.3 [facility] Comment on above: Performed By: #### L [id number] #### [facility] ([facility]) [address] [place] [address] Chloride [Moles/Vol] 99 mmol/L Normal 98-107 [facility] Comment on above: Performed By: #### L [id number] #### [facility] ([facility]) [address] [place] [address] CO2 [Moles/Vol] 26 mmol/L Normal 21-31 [facility] Comment on above: Performed By: #### L [id number] #### [facility] ([facility]) [address] [place] [address] Creatinine [Mass/Vol] 0.98 mg/dL Normal 0.70-1.30 [facility] Comment on above: Performed By: #### L [id number] #### [facility] ([facility]) [address] [place] [address] GLOMERULAR FILTRATION RATE ML/MIN/1.73 SQ M.PREDICTED 93.9 mL/min/1.73m*2 Normal >60.0 [facility] Comment on above: Result Comment: [facility]???s estimated glomerular filtration rate (eGFR) will [...] individuals. Performed By: #### L [id number] #### [facility] ([facility]) [address] [place] [address] Glucose [Mass/Vol] 176 mg/dL High 70-100 [facility] Comment on above: Performed By: #### L [id number] #### [facility] ([facility]) [address] [place] [address] Potassium [Moles/Vol] 4.3 mmol/L Normal 3.5-5.1 [facility] Comment on above: Performed By: #### L [id number] #### [facility] ([facility]) [address] [facility] [address] Sodium [Moles/Vol] 137 mmol/L Normal 136-145 [facility] Comment on above: Performed By: #### L [id number] #### [facility] ([facility]) [address] [place] [place] [address] Urea nitrogen [Mass/Vol] 22 mg/dL Normal 7-25 [facility] Comment on above: Performed By: #### L [id number] #### [facility] ([facility]) [address] [place] [place] [address] UREA NITROGEN/CREATININE (MASS RATIO) IN SER/PLAS 22.4 Normal [facility] Comment on above: Performed By: #### L [id number] #### [facility] ([facility]) [address] [place] [address] CBC WITH AUTO DIFFERENTIALon 10-06-2023 Basophils (Bld) [#/Vol] 0.06 10*3/uL Normal 0.00-0.20 [facility] Comment on above: Performed By: #### L [id number] ####[facility] ([facility])[address] [place] [address] Basophils/100 WBC (Bld) 1.0 % Normal 0.0-1.0 [facility] Comment on above: Performed By: #### L [id number] ####[facility] ([facility])[address] [place] [address] Eosinophils (Bld) [#/Vol] 0.11 10*3/uL Normal 0.00-0.50 [facility] Comment on above: Performed By: #### L [id number] ####[facility] ([facility])[address] [place] [address] Eosinophils/100 WBC (Bld) 1.8 % Normal 0.0-6.0 [facility] Comment on above: Performed By: #### L [id number] ####[facility] ([facility])[address] [place] [address] Erythrocyte distribution width (RBC) [Ratio] 12.3 % Normal 11.5-15.0 [facility] Comment on above: Performed By: #### L [id number] ####[facility] ([facility])[address] [place] [address] ERYTHROCYTE MEAN CORPUSCULAR HEMOGLOBIN CONCENTRATION (G/DL) BY AUTOMATED 34.1 g/dL Normal 32.0-35.0 [facility] Comment on above: Performed By: #### L [id number] ####[facility] ([facility])[address] [place] [address] Hematocrit (Bld) [Volume fraction] 50.7 % Normal 39.0-55.0 [facility] Comment on above: Performed By: #### L [id number] ####[facility] ([facility])[address] [place] [address] Hemoglobin (Bld) [Mass/Vol] 17.3 g/dL High 13.0-17.0 [facility] Comment on above: Performed By: #### L [id number] ####[facility] ([facility])[address] [place] [address] Immature granulocytes (Bld) [#/Vol] 0.02 10*3/uL Normal 0.00-0.20 [facility] Comment on above: Performed By: #### L [id number] ####[facility] ([facility])[address] [place] [address] Immature granulocytes/100 WBC (Bld) 0.3 % Normal 0.0-1.0 [facility] Comment on above: Performed By: #### L [id number] ####[facility] ([facility])[address] [place] [address] Lymphocytes (Bld) [#/Vol] 1.25 10*3/uL Normal 1.20-4.00 [facility] Comment on above: Performed By: #### L [id number] ####[facility] ([facility])[address] [place] [address] Lymphocytes/100 WBC (Bld) 20.1 % Normal 20.0-45.0 [facility] Comment on above: Performed By: #### L [id number] ####[facility] ([facility])[address] [place] [address] MCH (RBC) [Entitic mass] 34.7 pg High 27.0-33.0 [facility] Comment on above: Performed By: #### L [id number] ####[facility] ([facility])[address] [place] [address] MCV (RBC) [Entitic vol] 101.6 fL High 82.0-98.0 [facility] Comment on above: Performed By: #### L [id number] ####[facility] ([facility])[address] [place] [address] Monocytes (Bld) [#/Vol] 0.75 10*3/uL Normal 0.10-1.00 [facility] Comment on above: Performed By: #### L [id number] ####[facility] ([facility])[address] [place] [address] Monocytes/100 WBC (Bld) 12.0 % Normal 5.0-12.0 [facility] Comment on above: Performed By: #### L [id number] ####[facility] ([facility])[address] [place] [address] Neutrophils (Bld) [#/Vol] 4.04 10*3/uL Normal 1.60-7.60 [facility] Comment on above: Performed By: #### L [id number] ####[facility] ([facility])[address] [place] [address] Neutrophils/100 WBC (Bld) 64.8 % Normal 40.0-72.0 [facility] Comment on above: Performed By: #### L [id number] ####[facility] ([facility])[address] [place] [address] NRBC (PER 100 WBCS) BY AUTOMATED COUNT 0.0 % Normal 0 [facility] Comment on above: Performed By: #### L [id number] ####[facility] ([facility])[address] [place] [address] PLATELETS (10*3/UL) IN BLOOD AUTOMATED COUNT 219 10*3/uL Normal 150-400 [facility] Comment on above: Performed By: #### L [id number] ####[facility] ([facility])[address] [place] [address] RBC (Bld) [#/Vol] 4.99 10*6/uL Normal 4.20-5.70 [facility] Comment on above: Performed By: #### L [id number] ####[facility] ([facility])[address] [place] [address] WBC (Bld) [#/Vol] 6.23 10*3/uL Normal 4.00-10.60 [facility] Comment on above: Performed By: #### L [id number] ####[facility] ([facility])[address] [place] [address] CONSULTon 10-06-2023 CONSULT -- Attestation signed by [...] obesity, LARS, tobacco dependence intially presents to [facility] after sudden onset SOB. He woke [...] Value Ventricular Rate 88 Atrial Rate 88 SD Interval 162 QRS DURATION 84 QT Interval 404 QTC CALCULATION(BAZETT) 488 P [place] 50 R-[place] 0 T Wave [place] 61 Impression Sinus rhythm with occasional Premature [...] 12 l (more content not included)... Normal [facility] CONSULT Clinical Nutrition Assessment Name: Tera [...] with questions and contact the dietitian via [employer] chat 8A-4P Tuesday-Tuesday. Or call the dietitian's office at extension [phone]. For weekends/holidays, the dietitian's can be reached by paging [phone] from 9A-3P. Unable to be reached via [employer] chat on Tuesday & .) [facility] [...] obesity, LARS, tobacco dependence intially presents to [facility] after sudden onset SOB. He woke [...] Value Ventricular Rate 88 Atrial Rate 88 SD Interval 162 QRS DURATION 84 QT Interval 404 QTC CALCULATION(BAZETT) 488 P [place] 50 R-[place] 0 T Wave [place] 61 Impression Sinus rhythm with occasional Premature [...] 12 l (more content not included)... Normal [facility] LEGIONELLA ANTIGEN, URINEon 10-06-2023 LEGIONELLA AG, UR Negative Normal NEG [facility] Comment on above: Result Comment: L. p neumophila serogroup 1 antigen not detected. A negative result does not exclude infection with Leginella pnemophila serogroup 1 nor does it rule out other microbial-caused respiratory infections of disease caused by other serogroups of Legionella pneumophila. Test Performed by [facility] [address] [place] [address] - Released 10/06/2023 20:50 Performed By: #### L [id number] ####[facility] [id number] [place] [address] LIPID PANELon 10-06-2023 CHOL/HDL 4.5 mg/dL Normal [facility] Comment on above: Performed By: #### L [id number] #### [facility] ([facility]) [address] [place] [address] Cholesterol [Mass/Vol] 229 mg/dL High 120-200 [facility] Comment on above: Performed By: #### L [id number] #### [facility] ([facility]) [address] [place] [address] CHOLESTEROL IN LDL (MG/DL) IN SERUM OR PLASMA BY CALCULATION Normal [facility] Comment on above: Result Comment: Calc ulated LDL invalid, triglycerides >400 mg/dl Performed By: #### L [id number] #### [facility] ([facility]) [address] [place] [address] Magnesium [Mass/Vol] 469 mg/dL High 40-149 [facility] Comment on above: Result Comment: TRIG LYCERIDE REFERENCE RANGE: 20 YEARS AND OLDER CARDIOVASCULAR RISK LESS THAN 150 mg/dL LOW RISK 150 TO 199 mg/dL BORDERLINE RISK 200 mg/dL AND GREATER HIGH RISK Performed By: #### L [id number] #### [facility] ([facility]) [address] [place] [address] Magnesium [Mass/Vol] 51 mg/dL Normal 23-92 [facility] Comment on above: Performed By: #### L [id number] #### [facility] ([facility]) [address] [place] [address] NON HDL CHOL. (LDL+VLDL) 178 Normal [facility] Comment on above: Performed By: #### L [id number] #### [facility] ([facility]) [address] [place] [address] TOTAL VLDL-C 94 mg/dL High 0-40 [facility] Comment on above: Performed By: #### L [id number] #### [facility] ([employer]) [address] [place] [address] POCT GLUCOSE METER UNSOLICIT ED RESULTSon 10-06-2023 Glucose [Mass/Vol] 276 mg/dL High 70-105 [facility] Comment on above: Order Comment: Waive d Testing in the ED is performed under the ED CLIA certificate #[id number]. Result Comment: [email or web address] Performed By: #### L [id number] #### [facility] ([employer]) [address] [place] [place] [address] Glucose [Mass/Vol] 187 mg/dL High 70-105 [facility] Comment on above: Order Comment: Waive d Testing in the ED is performed under the ED CLIA certificate #[id number]. Result Comment: [email or web address] Performed By: #### L [id number] #### [facility] ([employer]) [address] [place] [address] Glucose [Mass/Vol] 183 mg/dL High 70-105 [facility] Comment on above: Order Comment: Waive d Testing in the ED is performed under the ED CLIA certificate #[id number]. Result Comment: [email or web address] Performed By: #### L [id number] #### [facility] ([employer]) [address] [place] [place] [address] Glucose [Mass/Vol] 183 mg/dL High 70-105 [facility] Comment on above: Order Comment: Waive d Testing in the ED is performed under the ED CLIA certificate #[id number]. Result Comment: [email or web address] Performed By: #### L [id number] ####[facility] ([employer])[address] [place] [address] STREP PNEUMONIAE ANTIGEN, UR INEon 10-06-2023 STREPTOCOCCUS PNEUMONIAE AG PRESENCE IN URINE Negative Normal Negative [facility] Comment on above: Performed By: #### L [id number] ####[facility] ([facility])[address] [place] [address] TROPONIN Ion 10-06-2023 Troponin I.cardiac [Mass/Vol] 0.03 ng/mL Normal 0.00-0.04 [facility] Comment on above: Performed By: #### L [id number] ####[facility] ([facility])[address] [place] [address] CBCon 10-05-2023 Erythrocyte distribution width (RBC) [Ratio] 12.3 % Normal 11.5-15.0 [facility] Comment on above: Performed By: #### L [id number] #### [facility] ([facility]) [address] [place] [address] ERYTHROCYTE MEAN CORPUSCULAR HEMOGLOBIN CONCENTRATION (G/DL) BY AUTOMATED 33.8 g/dL Normal 32.0-35.0 [facility] Comment on above: Performed By: #### L [id number] #### [facility] ([facility]) [address] [place] [address] Hematocrit (Bld) [Volume fraction] 49.4 % Normal 39.0-55.0 [facility] Comment on above: Performed By: #### L [id number] #### [facility] ([facility]) [address] [place] [address] Hemoglobin (Bld) [Mass/Vol] 16.7 g/dL Normal 13.0-17.0 [facility] Comment on above: Performed By: #### L [id number] #### [facility] ([facility]) [address] [place] [address] IMMATURE PLATELET FRACTION % 11.1 % High 0.8-6.3 [facility] Comment on above: Performed By: #### L [id number] #### [facility] ([facility]) [address] [place] [address] MCH (RBC) [Entitic mass] 34.9 pg High 27.0-33.0 [facility] Comment on above: Performed By: #### L [id number] #### [facility] ([facility]) [address] [place] [address] MCV (RBC) [Entitic vol] 103.3 fL High 82.0-98.0 [facility] Comment on above: Performed By: #### L [id number] #### [facility] ([facility]) [address] [place] [address] PLATELETS (10*3/UL) IN BLOOD AUTOMATED COUNT 149 10*3/uL Low 150-400 [facility] Comment on above: Performed By: #### L [id number] #### [facility] ([facility]) [address] [place] [address] RBC (Bld) [#/Vol] 4.78 10*6/uL Normal 4.20-5.70 [facility] Comment on above: Performed By: #### L [id number] #### [facility] ([facility]) [address] [place] [address] WBC (Bld) [#/Vol] 6.46 10*3/uL Normal 4.00-10.60 [facility] Comment on above: Performed By: #### L [id number] #### [facility] ([facility]) [address] [place] [address] HEMOGLOBIN A1Con 10-05-2023 Glucose [Mass/Vol] 183 mg/dL Normal [facility] Comment on above: Performed By: #### L [id number] #### [facility] ([facility]) [address] [place] [address] HbA1c (Bld) [Mass fraction] 8.0 % High 4.0-6.0 [facility] Comment on above: Performed By: #### L [id number] #### [facility] ([facility]) [address] [place] [address] POCT GLUCOSE METER UNSOLICIT ED RESULTSon 10-05-2023 Glucose [Mass/Vol] 229 mg/dL High 70-105 [facility] Comment on above: Order Comment: Waive d Testing in the ED is performed under the ED CLIA certificate #[id number]. Result Comment: [email or web address] Performed By: #### L [id number] ####[facility] ([employer])[address] [place] [address] Covid-19 PCR ([facility])on 07-09 SARS-CoV-2 (COVID-19) RNA NIXON+probe Ql (Unsp spec) Detected Critically abnormal NOT DETECTED [facility] Comment on above: Result Comment: This test is not yet approved or cleared by the [place] FDA. When there are no FDA-approved or cleared tests available, and other criteria are met, FDA can make tests available under an emergency access mechanism called an Emergency Use Authorization (EUA). The EUA for this test is supported by the Pharmacy Buyer of Health and Human Service's (HHS's) declaration [...] used). Performed By: #### A 1C #### [facility] [address] [place] [address] Dr. Bridger Aggarwal INFLUENZA A AND B AGon 08-03 [facility] SEE BELOW Normal [facility] Comment on above: Result Comment: Nega tive for Flu A protein angiten. Infection due to Flu A cannot be ruled out. Flu A angiten in the sample may be below the detection limit of the test. Performed By: #### I NFLUAB #### [facility] [address] [place] [address] Dr. Bridger Aggar[facility] BELOW Normal [facility] Comment on above: Result Comment: Nega tive for Flu B protein antigen. Infection due to Flu B cannot be ruled out. Flu B antigen in the sample may be below the detection limit of the test. Performed By: #### I NFLUAB #### [facility] [address] [place] [address] Dr. Bridger Aggarwal INFLUENZA A AG Negative Normal NEGATIVE SEE COMMENT [facility] Comment on above: Performed By: #### I NFLUAB #### [facility] [address] [place] [address] Dr. Bridger Aggarwal INFLUENZA B AG Negative Normal NEGATIVE SEE COMMENT [facility] Comment on above: Performed By: #### I NFLUAB #### [facility] [address] [place] [address] Dr. Bridger Aggarwal INTERNAL CONTROLS Within Normal Limits Normal Wi thin Normal Limits [facility] Comment on above: Performed By: #### I NFLUAB #### [facility] [address] [place] [address] Dr. Bridger Aggarwal CULTURE WOUNDon 04-23-2022 CULTURE [...] F Oxacillin <=0.25 S F Normal [facility] Comment on above: Performed By: #### A 1C #### [facility] [address] [place] [address] Dr. Bridger Aggarwal Covid-19 PCR ([facility])on 03-09 SARS-CoV-2 (COVID-19) RNA NIXON+probe Ql (Unsp spec) Not detected Normal NOT DETECTED [facility] Comment on above: Result Comment: This test is not yet approved or cleared by the [place] FDA. When there are no FDA-approved or cleared tests available, and other criteria are met, FDA can make tests available under an emergency access mechanism called an Emergency Use Authorization (EUA). The EUA for this test is supported by the Pharmacy Buyer of Health and Human Service's (HHS's) declaration [...] SARS-CoV-2. Performed By: #### A 1C #### [facility] [address] [place] [address] Dr. Bridger Aggarwal Covid-19 PCR ([facility])on SARS-CoV-2 (COVID-19) RNA NIXON+probe Ql (Unsp spec) Not detected Normal NOT DETECTED [facility] Comment on above: Result Comment: When [...] for this test is supported by the Pharmacy Buyer of Health and Human Service's declaration that [...] used). Performed By: #### A 1C #### [facility] [address] [place] [address] Dr. Bridger Aggarwal T4 LABCORPon 01-01-2022 T4 [Mass/Vol] 4.7 ug/dL Normal 4.5-12.0 [facility] Comment on above: Performed By: #### A 1C #### [facility] [address] [place] [address] Dr. Bridger Aggarwal FREE THYROXINE INDEX T7on FTI 1.69 Normal 1.30-4.50 [facility] Comment on above: Performed By: #### A 1C #### [facility] [address] [place] [address] Dr. Bridger Aggarwal T3U 36.0 % Normal 33.0-40.0 [facility] Comment on above: Performed By: #### A 1C #### [facility] [address] [place] [address] Dr. Bridger Aggarwal T4 [Mass/Vol] 4.70 ug/dL Normal 4.50-12.10 [facility] Comment on above: Performed By: #### A 1C #### [facility] [address] [place] [address] Dr. Bridger Aggarwal TSHon 12-28-2021 TSH 0.969 uIU/mL Normal 0.358-3.740 [facility] Comment on above: Performed By: #### A 1C #### [facility] [address] [place] [address] Dr. Bridger Aggarwal TSH RANGE SEE BELOW Normal [facility] Comment on above: Result Comment: <0.3 4 UIU/ml HYPERTHYROID 0.34-5.60 UIU/ml EUTHYROID >5.60 UIU/ml HYPOTHYROID Performed By: #### A 1C #### [facility] [address] [place] [address] Dr. Bridger Aggarwal CBC AUTO DIFFon 12-26-2021 BASO # 0.0 103/ul Normal 0.0-0.1 [facility] Comment on above: Performed By: #### C BC #### [facility] [address] [place] [address] Dr. Bridger Aggarwal Basophils/100 WBC (Bld) 0.4 % Normal 0.2-2.0 [facility] Comment on above: Performed By: #### C BC #### [facility] [address] [place] [address] Dr. Bridger Aggarwal EO # 0.1 103/ul Normal 0.0-0.7 [facility] Comment on above: Performed By: #### C BC #### [facility] [address] [place] [address] Dr. Bridger Aggarwal Eosinophils/100 WBC (Bld) 0.6 % Critically low 0.9-7.0 [facility] Comment on above: Performed By: #### C BC #### [facility] [address] [place] [address] Dr. Bridger Aggarwal Erythrocyte distribution width (RBC) [Ratio] 12.0 % Normal 11.0-15.0 [facility] Comment on above: Performed By: #### C BC #### [facility] [address] [place] [address] Dr. Brdiger Aggarwal Hematocrit (Bld) [Volume fraction] 44.9 % Normal 42.0-54.0 [facility] Comment on above: Performed By: #### C BC #### [facility] [address] [place] [address] Dr. Bridger Aggarwal Hemoglobin (Bld) [Mass/Vol] 15.4 g/dL Normal 14.0-18.0 [facility] Comment on above: Performed By: #### C BC #### [facility] [address] [place] [address] Dr. Bridger Aggarwal IG # 0.03 10e3/ul Normal 0.00-0.03 [facility] Comment on above: Performed By: #### C BC #### [facility] [address] [place] [address] Dr. Bridger Aggarwal IG % 0.3 % Normal 0.0-0.5 [facility] Comment on above: Performed By: #### C BC #### [facility] [address] [place] [address] Dr. Bridger Aggarwal LYMPH # 1.5 103/ul Normal 1.2-3.8 [facility] Comment on above: Performed By: #### C BC #### [facility] [address] [place] [address] Dr. Bridger Aggarwal Lymphocytes/100 WBC (Bld) 14.2 % Critically low 20.5-60.0 [facility] Comment on above: Performed By: #### C BC #### [facility] [address] [place] [address] Dr. Bridger Aggarwal MANUAL DIFF REQ NO Normal [facility] Comment on above: Performed By: #### C BC #### [facility] [address] [place] [address] Dr. Bridger Aggarwal MCH (RBC) [Entitic mass] 34.2 pg Critically high 25.9-34.0 [facility] Comment on above: Performed By: #### C BC #### [facility] [address] [place] [address] Dr. Bridger Aggarwal MCHC (RBC) [Mass/Vol] 34.3 g/dL Normal 29.9-35.2 [facility] Comment on above: Performed By: #### C BC #### [facility] [address] [place] [address] Dr. Bridger Aggarwal MCV (RBC) [Entitic vol] 99.8 fL Critically high 80.0-94.0 [facility] Comment on above: Performed By: #### C BC #### [facility] [address] [place] [address] Dr. Bridger Aggarwal MONO # 0.7 103/ul Normal 0.3-0.8 [facility] Comment on above: Performed By: #### C BC #### [facility] [address] [place] [address] Dr. Bridger Aggarwal Monocytes/100 WBC (Bld) 6.3 % Normal 1.7-12.0 [facility] Comment on above: Performed By: #### C BC #### [facility] [address] [place] [address] Dr. Bridger Aggarwal NEUT # 8.2 103/ul Critically high 1.4-6.5 [facility] Comment on above: Performed By: #### C BC #### [facility] [address] [place] [address] Dr. Bridger Aggarwal Neutrophils/100 WBC (Bld) 78.2 % Critically high 43.0-75.0 [facility] Comment on above: Performed By: #### C BC #### [facility] [address] [place] [address] Dr. Bridger Aggarwal Platelet mean volume (Bld) [Entitic vol] 9.6 fL Normal 9.5-13.5 [facility] Comment on above: Performed By: #### C BC #### [facility] [address] [place] [address] Dr. Bridger Aggarwal PLT 247 103/ul Normal 150-450 [facility] Comment on above: Performed By: #### C BC #### [facility] [address] [address] [address] Bridger Aggarwal RBC 4.50 106/ul Critically low 4.70-6.10 [facility] Comment on above: Performed By: #### C BC #### [facility] [address] [place] [address] Dr. Bridger Aggarwal WBC 10.5 103/ul Normal 4.0-11.0 [facility] Comment on above: Performed By: #### C BC #### [facility] [address] [place] [address] HEAD WO CONon [...] JACOB LALA Date: 2021-12-26 13:30 Normal [facility] PROF CHEM 8 (BAS METB)on Anion gap [Moles/Vol] 17.1 mmol/L Normal [facility] Comment on above: Performed By: #### A 1C #### [facility] [address] [place] [address] Dr. Bridger Aggarwal Calcium [Mass/Vol] 9.4 mg/dL Normal 8.5-10.1 [facility] Comment on above: Performed By: #### A 1C #### [facility] [address] [place] [address] Dr. Bridger Aggarwal Chloride [Moles/Vol] 97 mmol/L Critically low 98-107 [facility] Comment on above: Performed By: #### A 1C #### [facility] [address] [place] [address] Dr. Bridger Aggarwal CO2 [Moles/Vol] 20.6 mmol/L Critically low 21.0-32.0 [facility] Comment on above: Performed By: #### A 1C #### [facility] [address] [place] [address] Dr. Bridger Aggarwal Creatinine [Mass/Vol] 0.96 mg/dL Normal 0.70-1.30 [facility] Comment on above: Performed By: #### A 1C #### [facility] [address] [place] [address] Dr. Bridger Aggarwal EGFR-AF ESTONIAN >60 Normal >=60 [facility] Comment on above: Performed By: #### A 1C #### [facility] [address] [place] [address] Dr. Bridger Aggarwal EGFR-NON AF ESTONIAN >60 Normal >=60 [facility] Comment on above: Performed By: #### A 1C #### [facility] [address] [place] [address] Dr. Bridger Aggarwal Glucose [Mass/Vol] 216 mg/dL Critically high 74-106 [facility] Comment on above: Performed By: #### A 1C #### [facility] [address] [place] [address] Dr. Bridger Aggarwal Potassium [Moles/Vol] 3.7 mmol/L Normal 3.5-5.1 [facility] Comment on above: Performed By: #### A 1C #### [facility] [address] [place] [address] Dr. Bridger Aggarwal Sodium [Moles/Vol] 131 mmol/L Critically low 136-145 [facility] Comment on above: Performed By: #### A 1C #### [facility] [address] [place] [address] Dr. Bridger Aggarwal Urea nitrogen [Mass/Vol] 26.0 mg/dL Critically high 7.0-18.0 [facility] Comment on above: Performed By: #### A 1C #### [facility] [address] [place] [address] Dr. Bridger Aggarwal Urea nitrogen/Creatinine [Mass ratio] 27.1 mg/mg Normal [facility] Comment on above: Performed By: #### A 1C #### [facility] [address] [place] [address] Dr. Bridger Aggarwal CBC AUTO DIFFon 12-18-2021 BASO # 0.0 103/ul Normal 0.0-0.1 [facility] Comment on above: Performed By: #### A 1C #### [facility] [address] [place] [address] Dr. Bridger Aggarwal Basophils/100 WBC (Bld) 0.4 % Normal 0.2-2.0 [facility] Comment on above: Performed By: #### A 1C #### [facility] [address] [place] [address] Dr. Bridger Aggarwal EO # 0.1 103/ul Normal 0.0-0.7 [facility] Comment on above: Performed By: #### A 1C #### [facility] [address] [place] [address] Dr. Bridger Aggarwal Eosinophils/100 WBC (Bld) 1.2 % Normal 0.9-7.0 [facility] Comment on above: Performed By: #### A 1C #### [facility] [address] [place] [address] Dr. Bridger Aggarwal Erythrocyte distribution width (RBC) [Ratio] 12.5 % Normal 11.0-15.0 [facility] Comment on above: Performed By: #### A 1C #### [facility] [address] [place] [address] Dr. Bridger Aggarwal Hematocrit (Bld) [Volume fraction] 45.9 % Normal 42.0-54.0 [facility] Comment on above: Performed By: #### A 1C #### [facility] [address] [place] [address] Dr. Bridger Aggarwal Hemoglobin (Bld) [Mass/Vol] 15.8 g/dL Normal 14.0-18.0 [facility] Comment on above: Performed By: #### A 1C #### [facility] [address] [place] [address] Dr. Bridger Aggarwal IG # 0.04 10e3/ul Critically high 0.00-0.03 [facility] Comment on above: Performed By: #### A 1C #### [facility] [address] [place] [address] Dr. Bridger Aggarwal IG % 0.5 % Normal 0.0-0.5 [facility] Comment on above: Performed By: #### A 1C #### [facility] [address] [place] [address] Dr. Bridger Aggarwal LYMPH # 1.7 103/ul Normal 1.2-3.8 [facility] Comment on above: Performed By: #### A 1C #### [facility] [address] [place] [address] Dr. Bridger Aggarwal Lymphocytes/100 WBC (Bld) 22.3 % Normal 20.5-60.0 [facility] Comment on above: Performed By: #### A 1C #### [facility] [address] [place] [address] Dr. Bridger Aggarawl MANUAL DIFF REQ NO Normal [facility] Comment on above: Performed By: #### A 1C #### [facility] [address] [place] [address] Dr. Bridger Aggarwal MCH (RBC) [Entitic mass] 34.3 pg Critically high 25.9-34.0 [facility] Comment on above: Performed By: #### A 1C #### [facility] [address] [place] [address] Dr. Bridger Aggarwal MCHC (RBC) [Mass/Vol] 34.4 g/dL Normal 29.9-35.2 [facility] Comment on above: Performed By: #### A 1C #### [facility] [address] [place] [address] Dr. Bridger Aggarwal MCV (RBC) [Entitic vol] 99.6 fL Critically high 80.0-94.0 [facility] Comment on above: Performed By: #### A 1C #### [facility] [address] [place] [address] Dr. Bridger Aggarwal MONO # 0.7 103/ul Normal 0.3-0.8 [facility] Comment on above: Performed By: #### A 1C #### [facility] [address] [place] [address] Dr. Bridger Aggarwal Monocytes/100 WBC (Bld) 8.6 % Normal 1.7-12.0 [facility] Comment on above: Performed By: #### A 1C #### [facility] [address] [place] [address] Dr. Bridger Aggarwal NEUT # 5.2 103/ul Normal 1.4-6.5 [facility] Comment on above: Performed By: #### A 1C #### [facility] [address] [place] [address] Dr. Bridger Aggarwal Neutrophils/100 WBC (Bld) 67.0 % Normal 43.0-75.0 [facility] Comment on above: Performed By: #### A 1C #### [facility] [address] [place] [address] Dr. Bridger Aggarwal Platelet mean volume (Bld) [Entitic vol] 9.4 fL Critically low 9.5-13.5 [facility] Comment on above: Performed By: #### A 1C #### [facility] [address] [address] [address] Bridger Aggarawl PLT 259 103/ul Normal 150-450 [facility] Comment on above: Performed By: #### A 1C #### [facility] [address] [address] [address] Bridger Aggarwal RBC 4.61 106/ul Critically low 4.70-6.10 [facility] Comment on above: Performed By: #### A 1C #### [facility] [address] [address] [address] Bridger Aggarwal WBC 7.8 103/ul Normal 4.0-11.0 [facility] Comment on above: Performed By: #### A 1C #### [facility] [address] [place] [address] Dr. Bridger Aggarwal FREE T3on 12-18-2021 FREE T3 2.71 pg/mlL Normal 2.18-3.98 [facility] Comment on above: Performed By: #### C MP, T4, FT3, TSH, LIPID #### [facility] [facility] [address] [address] [address] Bridger Aggarwal GLYCOHEMOGLOBIN A1Con 2021 ADA RECOMMENDATION SEE BELOW Normal [facility] Comment on above: Result Comment: ADA RECOMMENDED LIMIT 4.0 - 6.0 ADA THERAPEUTIC TARGET < 7.0 ACTION SUGGESTED > 7.0 Performed By: #### A 1C #### [facility] [address] [address] [address] Bridger Aggarwal Glucose [Mass/Vol] 197 mg/dL Normal [facility] Comment on above: Performed By: #### A 1C #### [facility] [address] [address] [address] Bridger Aggarwal HbA1c (Bld) [Mass fraction] 8.5 % Critically high 4.5-6.2 [facility] Comment on above: Performed By: #### A 1C #### [facility] [address] [place] [address] Dr. Bridger Aggarwal LIPID PROFILEon 12-18-2021 CHOL-HDL RATIO NORM SEE BELOW Normal [facility] Comment on above: Result Comment: 3.3 - 4.4 LOW RISK 4.4 - 7.1 AVERAGE RISK 7.1 - 11.0 MODERATE RISK >11.0 HIGH RISK Performed By: #### C MP, T4, FT3, TSH, LIPID #### [facility] [address] [address] [address] Bridger Aggarwal Cholesterol [Mass/Vol] 157 mg/dL Normal <=200 [facility] Comment on above: Performed By: #### C MP, T4, FT3, TSH, LIPID #### [facility] [address] [address] [address] Bridger Aggarwal Cholesterol in HDL [Mass/Vol] 46 mg/dL Normal 40-60 [facility] Comment on above: Performed By: #### C MP, T4, FT3, TSH, LIPID #### [facility] [address] [place] [address] Dr. Bridger Aggarwal Cholesterol in LDL [Mass/Vol] 85.8 mg/dL Normal [facility] Comment on above: Performed By: #### C MP, T4, FT3, TSH, LIPID #### [facility] [address] [address] [address] Bridger Aggarwal Cholesterol.total/C holesterol in HDL [Mass ratio] 3.4 {ratio} Normal [facility] Comment on above: Performed By: #### C MP, T4, FT3, TSH, LIPID #### [facility] [address] [place] [address] Dr. Bridger Aggarwal HDL NORMAL > or = 60 mg/dl - LO W CARDIOVASCULAR RISK <40 mg/dl - HIGH CARDIOVASCULAR RISK Normal [facility] Comment on above: Performed By: #### C MP, T4, FT3, TSH, LIPID #### [facility] [address] [place] [address] Dr. Bridger Aggarwal LDL CALC NORMAL SEE BELOW Normal [facility] Comment on above: Result Comment: <100 mg/dl OPTIMAL 100 - 129 mg/dl NEAR OR ABOVE OPTIMAL 130 - 159 mg/dl BORDERLINE HIGH 160 - 189 mg/dl HIGH >190 mg/dl VERY HIGH Performed By: #### C MP, T4, FT3, TSH, LIPID #### [facility] [address] [address] [address] Bridger Aggarwal Triglyceride [Mass/Vol] 126 mg/dL Normal <=150 [facility] Comment on above: Performed By: #### C MP, T4, FT3, TSH, LIPID #### [facility] [address] [address] [address] Bridger Aggarwal VLDL CALC 25.2 mg/dL Normal [facility] Comment on above: Performed By: #### C MP, T4, FT3, TSH, LIPID #### [facility] [address] [place] [address] Dr. Bridger Aggarwal OCC BLD IMMUNO SCREENon 12-06 OCCULT BLOOD Negative Normal NEGATIVE [facility] Comment on above: Performed By: #### O BSCRN #### [facility] [address] [place] [address] Dr. Bridger Aggarwal PROF 14(COMP METB)on 022 Albumin [Mass/Vol] 3.6 g/dL Normal 3.4-5.0 [facility] Comment on above: Performed By: #### C MP, T4, FT3, TSH, LIPID #### [facility] [address] [place] [address] Dr. Bridger Aggarwal Albumin/Globulin [Mass ratio] 0.9 {ratio} Normal [facility] Comment on above: Performed By: #### C MP, T4, FT3, TSH, LIPID #### [facility] [address] [place] [address] Dr. Bridger Aggarwal ALP [Catalytic activity/Vol] 84 U/L Normal 46-116 [facility] Comment on above: Performed By: #### C MP, T4, FT3, TSH, LIPID #### [facility] [address] [place] [address] Dr. Bridger Aggarwal ALT [Catalytic activity/Vol] 45 U/L Normal 16-63 [facility] Comment on above: Performed By: #### C MP, T4, FT3, TSH, LIPID #### [facility] [address] [place] [address] Dr. Bridger Aggarwal Anion gap [Moles/Vol] 12.1 mmol/L Normal [facility] Comment on above: Performed By: #### C MP, T4, FT3, TSH, LIPID #### [facility] [address] [place] [address] Dr. Bridger Aggarwal AST [Catalytic activity/Vol] 20 U/L Normal 15-37 [facility] Comment on above: Performed By: #### C MP, T4, FT3, TSH, LIPID #### [facility] [address] [place] [address] Dr. Bridger Aggarwal Bilirubin [Mass/Vol] 0.6 mg/dL Normal 0.2-1.0 [facility] Comment on above: Performed By: #### C MP, T4, FT3, TSH, LIPID #### [facility] [address] [place] [address] Dr. Bridger Aggarwal Calcium [Mass/Vol] 9.1 mg/dL Normal 8.5-10.1 [facility] Comment on above: Performed By: #### C MP, T4, FT3, TSH, LIPID #### [facility] [address] [place] [address] Dr. Bridger Aggarwal Chloride [Moles/Vol] 100 mmol/L Normal 98-107 [facility] Comment on above: Performed By: #### C MP, T4, FT3, TSH, LIPID #### [facility] [address] [place] [address] Dr. Bridger Aggarwal CO2 [Moles/Vol] 28.4 mmol/L Normal 21.0-32.0 [facility] Comment on above: Performed By: #### C MP, T4, FT3, TSH, LIPID #### [facility] [address] [place] [address] Dr. Bridger Aggarwal Creatinine [Mass/Vol] 0.99 mg/dL Normal 0.70-1.30 [facility] Comment on above: Performed By: #### C MP, T4, FT3, TSH, LIPID #### [facility] [address] [place] [address] Dr. Bridger Aggarwal EGFR-AF ESTONIAN >60 Normal >=60 [facility] Comment on above: Performed By: #### C MP, T4, FT3, TSH, LIPID #### [facility] [address] [place] [address] Dr. Bridger Aggarwal EGFR-NON AF ESTONIAN >60 Normal >=60 [facility] Comment on above: Performed By: #### C MP, T4, FT3, TSH, LIPID #### [facility] [address] [address] [address] Bridger Aggarwal Globulin (S) [Mass/Vol] 3.8 g/dL Normal [facility] Comment on above: Performed By: #### C MP, T4, FT3, TSH, LIPID #### [facility] [address] [place] [address] Dr. Bridger Aggarwal Glucose [Mass/Vol] 260 mg/dL Critically high 74-106 T [facility] Comment on above: Performed By: #### C MP, T4, FT3, TSH, LIPID #### [facility] [address] [place] [address] Dr. Bridger Aggarwal Potassium [Moles/Vol] 4.5 mmol/L Normal 3.5-5.1 [facility] Comment on above: Performed By: #### C MP, T4, FT3, TSH, LIPID #### [facility] [address] [place] [address] Dr. Bridger Aggarwal Protein [Mass/Vol] 7.4 g/dL Normal 6.4-8.2 [facility] Comment on above: Performed By: #### C MP, T4, FT3, TSH, LIPID #### [facility] [address] [place] [address] Dr. Bridger Aggarwal Sodium [Moles/Vol] 136 mmol/L Normal 136-145 [facility] Comment on above: Performed By: #### C MP, T4, FT3, TSH, LIPID #### [facility] [address] [place] [address] Dr. Bridger Aggarwal Urea nitrogen [Mass/Vol] 17.0 mg/dL Normal 7.0-18.0 [facility] Comment on above: Performed By: #### C MP, T4, FT3, TSH, LIPID #### [facility] [address] [address] [address] Bridger Aggarwal Urea nitrogen/Creatinine [Mass ratio] 17.2 mg/mg Normal [facility] Comment on above: Performed By: #### C MP, T4, FT3, TSH, LIPID #### [facility] [address] [place] [address] Dr. Bridger Aggarwal T4on 12-18-2021 T4 [Mass/Vol] 4.80 ug/dL Normal 4.50-12.10 [facility] Comment on above: Performed By: #### C MP, T4, FT3, TSH, LIPID #### [facility] [address] [place] [address] Dr. Bridger Aggarwal TSHon 12-18-2021 TSH 1.496 uIU/mL Normal 0.358-3.740 [facility] Comment on above: Performed By: #### C MP, T4, FT3, TSH, LIPID #### [facility] [address] [place] [address] Dr. Bridger Aggarwal TSH RANGE SEE BELOW Normal [facility] Comment on above: Result Comment: <0.3 4 UIU/ml HYPERTHYROID 0.34-5.60 UIU/ml EUTHYROID >5.60 UIU/ml HYPOTHYROID Performed By: #### C MP, T4, FT3, TSH, LIPID #### [facility] [address] [place] [address] Dr. Bridger Aggarwal Encounters Encounter Date Encounter Type Care Provider Facility Start: 12-05-2023 End: 12-05-2023 ambulatory AB [facility] Start: 10-13-2023 End: 10-13-2023 [facility] Start: 10-06-2023 Evaluation and management of inpatient DESTINEE COSTA [facility] Start: 10-05-2023 End: 10-09-2023 Evaluation and management of inpatient ADARSH HALL [facility] Start: 08-10-2022 End: 08-10-[address] ADARSH HALL Facility:[facility] Start: 08-03-2022 End: 08-03-[address] ADARSH HALL Facility:[facility] Start: 04-21-2022 End: 04-21-[address] ADARSH HALL Facility:[facility] Start: 03-29-2022 End: 03-29-[address] ADARHS HALL Facility:[facility] Start: 02-05-2022 End: 02-05-[address] ADARSH HALL Facility:[facility] Start: 12-28-2021 End: 12-29-[address] ADARSH HALL Facility:[facility] Start: 12-26-2021 End: 12-26-[address] ADARSH HALL Facility:[facility] Start: 12-23-2021 Encounter for genera l adult medical examination without abnormal findings DR ADARSH HALL [facility] Start: 12-18-2021 End: 12-19-[address] ADARSH HALL Facility:[facility] Start: 12-18-2021 End: 12-19-2021 Encounter for general adult medical examination without abnormal findings DR ADARSH HALL Facility:[facility] Procedures Date Procedure Procedure Detail Performing Clinician Start: 12-18-[address] GREG HALL Comment on above: Performed By: #### P [facility] #### [facility] [address] [place] [address] Dr. Bridger Aggarwal Payers Date Payer Category Payer Unknown [id number] .. [id number] 1975 Unknown [id number] 2..84 [id number] 1975 Unknown [id number] 2..84 [id number] 1973 Unknown [id number] 2.16.84 [id number] 1973 Unknown [id number] 2..84 [id number] 1973 Unknown [id number] 2.16.84 [id number] 1973 Unknown [id number] 2.16.84 [id number] 1973 Unknown [id number] 2.16.84 [id number] 1959 Private Health Insurance [id number] 1961 Unknown [id number] Clinical Notes 10-05-2023 to 12-05-2023 Note Date & Type Note Facility 12-05-2023 Note [facility] Cardiology Clinic Note Chief Complaint: Patient [...] with sluggish coronary flow on [facility] 10/07/23 Hypertension Type 2 DM with A1C [...] obesity, LARS, tobacco dependence intially presents to [facility] after sudden onset SOB. He woke [...] 37.66 kg/m??? P (more content not included)... [facility] 10-13-2023 Note Cardiovascular Medic [facility] SUBJECTIVE Chief Complaint Patient presents [...] with sluggish coronary flow on [facility] 10/07/23 Hypertension Type 2 DM with A1C [...] obesity, LARS, tobacco dependence intially presents to [facility] after sudden onset SOB. He woke [...] Heart failure (CMS/HCC) Coronary artery disease involving duckwater coronary artery of duckwater heart without angina pectoris Benign hypertensive heart [...] at bedtime., Disp: (more content not included)... [facility] 10-13-2023 Note Patient here for [facility] for new onset CHF. He underwent heart cath on 10/07/[address] Herrera. Was discharged with a LifeVest. He has completely stopped smoking and drinking alcohol. Denies chest pain, SOB, palpitations, and lightheadedness/syncope. Review of Systems All other systems reviewed and are negative. [facility] 10-09-2023 Note Patient discharged v ia private ride with . Patient educated on discharge and educated on heart failure education. All questions and concerns addressed at this time. [facility] 10-09-2023 Note 10/09/23 1403 CM Interventions CM Interventions Other (Comment) Follow up appointment for GI Clinic was scheduled for patient for tomorrow, however, per Epic chart, patient has already cancelled. Dr Costa notified [facility] 10-09-2023 Note Awaiting life vest a pproval and fitting. OTM will continue to follow. 1200: Life Vest approved. Awaiting RN for fitting. [facility] 10-09-2023 Note Hospital Medicine Discharge Summary Final Discharge Diagnosis: New onset heart failure with reduced EF, 20-25%, NYHA I, with global hypokinesis NICMP Coronary artery disease- nonobstructive with sluggish coronary flow on [facility] 10/07/23 Hypertension Type 2 DM with A1C [...] obesity, LARS, tobacco dependence intially presents to [facility] after sudden onset SOB. He woke [...] was discharged home. Dear Dr. Rafael MD [place] is advised to follow up with you [...] Medications These medications were sent to [facility] - [place], [place] - [address] [place] [address], [facility] [address] aspirin 81 mg chewable tablet atorvastatin 80 [...] (!) 129/100, pulse (more content not included)... [facility] 10-08-2023 Note cushion worker lalito valentin by Dakota, at [facility], on behalf of patient. Facesheet & cardiology progress note faxed to [facility] to initiate life ves referral. Awaiting approval / denial and next steps before patient can discharge. UPDATE: Offensive Coordinator reached out to Dakota who reports he is still waiting for insurance approval for life vest. This information was shared with physician, bedside nurse, and group social worker. Dakota reports if he is approved today, he will attempt to get patient fitted for his life vest today as well. OTM team continuing to follow. [facility] 10-08-2023 Note Hospital Medicine Discharge Summary Final Discharge Diagnosis: New onset heart failure with reduced EF, 20-25%, NYHA I, with global hypokinesis NICMP Coronary artery disease- nonobstructive with sluggish coronary flow on [facility] 10/07/23 Hypertension Type 2 DM with A1C 8% Dyslipidemia Alcohol abuse Tobacco dependence Circumferential esophageal thickening-Outpatient GI Fup for concern of EGD, has hx of reflux, Cont PPI therapy Bilateral groundglass opacities and hilar lymphadenopathy. Be infectious versus inflammatory. Flu PCR and COVID-negative. Admission Diagnosis: Heart failure (CMS/[facility]) [I50.9] Hospital course: Tera Roberto is a 48 y.o. male with a PMH significant for T2DM, HTN, obesity, LARS, tobacco dependence intially presents to [facility] after sudden onset SOB. He woke [...] Medications These medications were sent to [facility] - [place], [place] - [facility] [address], [facility] [address] aspirin 81 mg chewable tablet atorvastatin 80 [...] time of di (more content not included)... [facility] 10-08-2023 Note UTP CARDIOLOGY PROGR ESS [...] AND sodium chloride CV Testing: [facility] 10/07/23: FINAL IMPRESSIONS: Angiographically nonobstructive coronary arteries [...] a beta-nabila, a (more content not included)... [facility] 10-08-2023 Note Hospital Medicine Daily Progress Note - 10/09/2023 7:16 AM; Room: [address] [place] [address] Admission: 10/05/2023 7:45 PM; Length of stay: 4 days THE HOSPITALIST TEAM PREFERS TO USE ePub Direct CHAT FOR COMMUNICATION 7AM-7PM. IF I DO NOT RESPOND WITHIN 15 MINUTES, PLEASE PAGE ME/CALL THROUGH THE SOCIAL SCIENCES CHAIR. FROM 7PM-7AM, PLEASE PAGE [phone](COVR) Code Status: Full Code Barriers to Discharge: [...] Active Inpatient Problems Principal Problem: Heart failure ([facility]) Assessment and Plan Acute hypoxemic resp [...] Academy of Nutrition and Dietetics and the [place] Society of Enteral and Parenteral Nutrition, meets [...] LDL 178 10/06/2023 No results found for: [id number] , IRON , TIBC , C3 , [...] beta-nabila, a RAA (more content not included)... [facility] 10-07-2023 Note Clinical Therapist B [facility] Intervention Note Substance Intervention: Raise the [...] brief intervention. Assessment completed by: DELMA Morgan [facility] 10-07-2023 Note Cardiovascular Labor atory Report [...] internal jugular vein was obtained. A 6 English 11 cm sheath was inserted without difficulty. [...] left radial artery was obtained. A 6 English glide sheath was inserted without difficulty. Bilateral [...] fraction, exertional shortness of breath, abnormal echocardiogram [facility] 10-07-2023 Note ---- Attestation signed by [...] Value Ventricular Rate 88 Atrial Rate 88 SD Interval 162 QRS DURATION 84 QT Interval 404 QTC CALCULATION(BAZETT) 488 P [place] 50 R-[place] 0 T Wave [place] 61 Impression Sinus rhythm with occasional Premature ventricular complexes Left ventricular hypertrophy ( R in aVL ) Prolonged QT Abnormal ECG No previous ECGs available Confirmed by Daiyl MENDEZ, L.S. (2) on 10/06/2023 11:01:33 AM Lab Results Component Value Date TROPONINI 0.03 10/06/2023 Transthoracic echo (TTE) limited Result Date: 10/06/2023 1 1 [facility] Heart [facility] [address] [place], [place] [phone] (fax) Echocardiogram-[facility] Name: TERA [...] No pericardial effusion. Procedure Staff Reading Group: [facility] Referring Physician: Keith Edwards President Of The [place]: Zina Altamirano [facility] Ordering Physician: DESTINEE COSTA No nuclear medicine results found for the past 12 months Relevant Imaging Results Transthoracic echo (TTE) limited 1 1 [facility] [address] [place] [address] [phone] (fax) Echocardiogram-[facility] Name: TERA ROBERTO Study Date: 10/06/2023 10:25 AM B/P: (more content not included)... [facility] 10-07-2023 Note Clinician attempted to provide AOD brief intervention. Physician at bedside with pt. Clinician will make another attempt [facility] 10-07-2023 Note Hospital Medicine Daily Progress Note - 10/07/2023 9:30 AM; Room: [address] [place] [address] Admission: 10/05/2023 7:45 PM; Length of stay: 2 days THE HOSPITALIST TEAM PREFERS TO USE ePub Direct CHAT FOR COMMUNICATION 7AM-7PM. IF I DO NOT RESPOND WITHIN 15 MINUTES, PLEASE PAGE ME/CALL THROUGH THE SOCIAL SCIENCES CHAIR. FROM 7PM-7AM, PLEASE PAGE [phone](COVR) Code Status: Full Code Barriers to Discharge: [...] Active Inpatient Problems Principal Problem: Heart failure ([facility]) Assessment and Plan Acute hypoxemic resp [...] Academy of Nutrition and Dietetics and the [place] Society of Enteral and Parenteral Nutrition, meets [...] LDL 178 10/06/2023 No results found for: [id number] , IRON , TIBC , C3 , C4 , DANTE , CANCA , ASO , PSA , CEA , CA125 , CA199 , AFP , CA153 Imaging Transthoracic echo (TTE) limited 1 1 [facility] [address] [place] [address] [phone] (fax) Echocardiogram-[facility] Name: TERA ROBERTO Study Date: 10/06/2023 10:25 AM B/P: 153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
[2024-09-19] MEDS: TIZANIDINE HCL 4 MG TABLET PO (02:37)
[2024-09-19] MEDS: ACETAMINOPHEN 500 MG TABLET 1000 MG PO ×4 (02:37→21:07)
[2024-09-19] MEDS: LIDOCAINE 5% PATCH 1 PATCH TOPICAL (02:37)
[2024-09-19] MEDS: MORPHINE SULFATE 2 MG/ML SYRINGE IV (03:14)
[2024-09-19] MEDS: OXYCODONE HCL 5 MG TABLET 10 MG PO ×2 (05:46→08:59)
--- NOTE | 2024-09-19 06:16 | P.HP_ITS ---
HPI H&P: HPI History of Present Illness Chief complaint: MULTIPLE RIB FRACTURES Narrative: Patient was discharged yesterday but had increasing pain despite the use of hydrocodone, unable to tolerate the pain, started having shortness of breath through the need to take short shallow breathing, in ER found to have acute atelectasis and poor pain control, patient admitted for workup and treatment of same I saw patient up in the medical surgical floor he looks way worse than at that time he was discharged yesterday, severe pain, moderately severely distressed secondary to the pain Opioid HPI Opioid Management Most Recent Pain and Opioid Data: Last Pain Scale 3 09/19/24 18:50 09/19/24 Last Pain Assessment 09/19/24 18:50 Last MAR Pain Assessment 09/19/24 18:49 Last ORT Total Score 0 09/19/24 01:51 09/19/24 Last ORT Risk Category Low Risk 09/19/24 01:51 09/19/24 Review of Systems ROS Status of ROS 10 or more systems reviewed and unremark able except as noted in history and below PFSH PFS Medical History (Updated 09/19/24 @ 00:54 by Celio Miranda MD) Depression ?F32.A - Depression, unspecified (ICD-10) Diabetes type 2 ?E11.9 - Type 2 diabetes mellitus without complications (ICD-10) Hypertension ?I10 - Essential (primary) hypertension (ICD-10) Pneumonitis ?J98.4 - Other disorders of lung (ICD-10) Chest pain ?R07.9 - Chest pain, unspecified (ICD-10) Bronchitis ?J40 - Bronchitis, not specified as acute or chronic (ICD-10) Family History (Updated 09/17/24 @ 10:14 by Georgie Villa) Grandfather Family history of CHF (congestive heart failure) Grandmother Family history of diabetes mellitus Father Family history of hypertension Uncle Family history of stroke Social History (Updated 09/17/24 @ 10:15 by Georgie Villa) Within the past year, how often did you have a drink containing alcohol: 4 or more times a week Within the past year, how many standard drinks containing alcohol did you have on a typical day: 1 or 2 Within the past year, how often did you have six or more drinks on one occasion: less than monthly Total score: 1 Score interpretation: A score of 4 or more indicates drinking is likely to affect patient's safety. Smoking status: Current every day smoker Non-prescribed substance use: denies use Highest level of school completed/degree received: Associate degree: occupational, technical, vocational program Are you now , , , , never or living with a partner: In a typical week, how many times do you talk on the telephone with family, friends, or neighbors: 3 or more times per week How often do you get together with friends or relatives: 3 or more times per week How often do you attend congregational or restoration services: never Do you belong to any clubs or organizations such as congregational groups unions, [employer] or [employer] groups, or school groups: no Total score: 2 Score interpretation: A score of greater than or equal to 2 indicates the lowest level of social isolation. Little interest or pleasure in doing things: not at all Feeling down, depressed, or hopeless: not at all Feel stressed/tense/nervous/anxious/difficulty sleeping: not at all Do you think of yourself as: straight/heterosexual Gender Identity: male Meds Home Medications and Allergies Home Medications ?Medication ?Instructions ?Recorded ?Confirmed ?Type glimepiride 4 mg tablet 8 mg PO DAILY 10/05/23 09/19/24 History pioglitazone 30 mg tablet 30 mg PO DAILY 10/05/23 09/19/24 History simvastatin 20 mg tablet 20 mg PO DAILY 10/05/23 09/19/24 History venlafaxine 75 mg capsule,extended 75 mg PO DAILY 10/05/23 09/19/24 History release 24 hr aspirin 81 mg chewable tablet 1 tab PO .qd 09/17/24 09/19/24 History atorvastatin 80 mg tablet 80 mg PO .QHS 09/17/24 09/19/24 History carvedilol 6.25 mg tablet 6.25 mg PO BID 09/17/24 09/19/24 History dapagliflozin propanediol 10 mg 10 mg PO .qd 09/17/24 09/19/24 History tablet (Farxiga) sacubitril 49 mg-valsartan 51 mg 1 tab PO BID 09/17/24 09/19/24 History tablet (Entresto) spironolactone 25 mg tablet 12.5 mg PO .qd 09/17/24 09/19/24 History Allergies Allergy/AdvReac Type Severity Reaction Status Date / Time No Known Drug Allergies Allergy Verified 09/18/24 20:18 Exam Constitutional Vital Signs, click to edit/add: Last Vital Signs Temp 97.5 F L 09/19/24 05:50 Pulse 82 09/19/24 06:14 Resp 16 09/19/24 05:50 BP 146/79 H 09/19/24 05:50 Pulse Ox 98 09/19/24 05:50 O2 Del Method Room Air 09/19/24 05:50 Documenting provider has reviewed patient's vital signs: yes Common normals: apparent distress (Moderate to severe distress secondary to pain) Chest Common normals: inspection of chest normal and palpation of chest normal Respiratory Common normals: no use of accessory muscles and clear to auscultation bilaterally; abnormal respiratory effort (Short shallow breathing secondary to pain) Cardio Common normals: regular rate and regular rhythm Extremity Common normals: normal to inspection Results Labs Labs: Short CBC 09/18/24 Range/Units 23:11 WBC 9.7 (4.0-11.0) 10^3/uL Hgb 16.1 (14.0-18.0) g/dL Hct 46.8 (42.0-54.0) % Plt Count 275 (150-450) 10^3/uL BMP 09/18/24 23:11 Sodium 138 Potassium 4.6 Chloride 100 Carbon Dioxide 23.7 BUN 33.0 H Creatinine 0.98 Glucose 152 H Calcium 9.5 Assessment and Plan Assessment and Plan (1) Intractable pain: (2) Multiple rib fractures: Plan Admission findings: Uncontrolled hypertension, left-sided atelectasis secondary to left-sided rib fractures, poor pain control despite use of outpatient narcotics, hydrocodone and muscle relaxers, tizanidine Multiple left-sided rib fractures-ribs 5 through 7-now with atelectasis on the left side, encourage incentive spirometer, pain control with IV pain medications and increased from hydrocodone to oxycodone with Toradol lbepog-ygs-ulxjk and tizanidine [id number]. Left-sided atelectasis-encourage the incentive spirometer use NIDDM-insulin sliding scale-Home medications Hypertension-continue with home medications History of chronic combined congestive heart failure-maintain current medications Hypercholesterolemia continue with home medications Depression-continue with home medications Admission status: Patient initially placed in observation status despite failure of outpatient treatment, more aggressive narcotic use, if we are unable to control his pain, that would make medically necessary treatment spanning 2 midnights, inpatient status. The use of IV narcotics over the first 24 to 48 hours is highly likely
[2024-09-19] MEDS: KETOROLAC TROMETHAMINE 30 MG/ML VIAL IVP ×3 (06:48→18:49)
[2024-09-19 08:04] LABS: Glucometer 162 mg/dL (74-106)
[2024-09-19] MEDS: PIOGLITAZONE 15 MG TABLET 30 MG PO (08:19)
[2024-09-19] MEDS: SACUBITRIL/VALSARTAN 24 MG-26 MG TABLET 2 TAB PO ×2 (08:20→21:08)
[2024-09-19] MEDS: SPIRONOLACTONE 25 MG TABLET 12.5 MG PO (08:20)
[2024-09-19] MEDS: GLIMEPIRIDE 2 MG TABLET 8 MG PO (08:20)
[2024-09-19] MEDS: VENLAFAXINE HCL ER 75 MG CAPSULE PO (08:20)
[2024-09-19] MEDS: INSULIN ASPART 300 UNIT/3 ML PEN SUBQ ×4 (08:21→21:08)
[2024-09-19] MEDS: CARVEDILOL 6.25 MG TABLET PO ×2 (08:21→21:08)
--- NOTE | 2024-09-19 08:52 | CM.NOTE ---
Rounds made with Dr. Hall, pt still having uncontrolled pain. Pt will not discharge today, pt will remain in OBS status for pain control.
[2024-09-19] MEDS: TIZANIDINE HCL 4 MG TABLET 8 MG PO ×2 (09:45→17:22)
[2024-09-19 10:59] LABS: Glucometer 243 mg/dL (74-106)
[2024-09-19] MEDS: OXYCODONE HCL 5 MG TABLET PO ×2 (15:28→21:08)
[2024-09-19] MEDS: DOCUSATE SODIUM 100 MG CAPSULE 200 MG PO (15:31)
[2024-09-19 17:28] LABS: Glucometer 145 mg/dL (74-106)
[2024-09-19 20:29] LABS: Glucometer 270 mg/dL (74-106)
[2024-09-19] MEDS: ATORVASTATIN CALCIUM 40 MG TABLET 80 MG PO (21:08)
[2024-09-20] MEDS: LIDOCAINE 5% PATCH 1 PATCH TOPICAL (01:07)
[2024-09-20] MEDS: KETOROLAC TROMETHAMINE 30 MG/ML VIAL IVP ×2 (01:07→05:59)
[2024-09-20] MEDS: TIZANIDINE HCL 4 MG TABLET 8 MG PO ×2 (01:07→09:23)
[2024-09-20] MEDS: ACETAMINOPHEN 500 MG TABLET 1000 MG PO ×2 (03:05→09:23)
[2024-09-20 03:50] VITALS: BP 135/86; PULSE 74; TEMP 36.5; O2SAT 94
[2024-09-20 05:10] VITALS: O2SAT 95
--- NOTE | 2024-09-20 06:15 | P.DS_ITS ---
DS: Providers Provider Date of admission: 09/19/24 01:43 Primary care physician: Donn Hall MD Consults: 09/19/24 06:19 Consult to Pharmacy Routine Consulting Provider: Reason for consultation: Please [place] me when Med Rec is Updated Has provider been notified: No DS: Diagnosis Discharge Diagnosis (1) Intractable pain: (2) Multiple rib fractures: Plan Admission findings: Uncontrolled hypertension, left-sided atelectasis secondary to left-sided rib fractures, poor pain control despite use of outpatient narcotics, hydrocodone and muscle relaxers, tizanidine Multiple left-sided rib fractures-ribs 5 through 7-now with atelectasis on the left side, encourage incentive spirometer, pain control with IV pain medications and increased from hydrocodone to oxycodone with Toradol ckgcoi-kir-xwtrb and tizanidine jethka-apd-xdreb. Left-sided atelectasis-encourage the incentive spirometer use NIDDM-insulin sliding scale-Home medications Hypertension-continue with home medications History of chronic combined congestive heart failure-maintain current medications Hypercholesterolemia continue with home medications Depression-continue with home medications Admission status: Patient initially placed in observation status despite failure of outpatient treatment, more aggressive narcotic use, if we are unable to control his pain, that would make medically necessary treatment spanning 2 midnights, inpatient status. The use of IV narcotics over the first 24 to 48 hours is highly likely ? DS: Summary Hospital Course Hospital Course: Patient was readmitted after failed outpatient treatment for rib fractures, he was hospitalized, pain seem to be fairly well-controlled sent home on hydrocodone, pain increased and unable to tolerate, Rob presented and has been on oxycodone and doing well with that, no complaints of shortness of breath he did have atelectasis on his chest x-ray, feels much better this morning, will discharge patient home on oxycodone and follow-up with me closely in the office. Medications see this. See me in the office either late this week or next Status at Discharge Overall status at discharge: patient is not back to baseline Time Spent with Patient Time attestation: Total time spent providing and/or coordinating discharge services: Time spent: greater than 30 minutes Exam Constitutional Vital Signs, click to edit/add: Last Vital Signs Temp 97.7 F 09/20/24 03:50 Pulse 74 09/20/24 03:50 Resp 20 09/20/24 03:50 BP 135/86 09/20/24 03:50 Pulse Ox 95 09/20/24 05:10 O2 Del Method Room Air 09/20/24 05:10 Documenting provider has reviewed patient's vital signs: yes Common normals: apparent distress (Moderate to severe distress secondary to pain) Chest Common normals: inspection of chest normal and palpation of chest normal Respiratory Common normals: no use of accessory muscles and clear to auscultation bilaterally; abnormal respiratory effort (Short shallow breathing secondary to pain) Cardio Common normals: regular rate and regular rhythm Extremity Common normals: normal to inspection DS: Data Data Completed and Pending Labs on day of discharge: Labs from last 24 hours 09/19/24 09/19/24 09/19/24 20:28 17:17 10:57 POC Glucose 270 H 145 H 243 H 09/19/24 08:02 POC Glucose 162 H Discharge Plan Discharge Disposition: Home, Self-Care Condition: Fair Discharge Medications: New oxycodone-acetaminophen [Percocet] 5-325 mg tablet 1 tab PO Q6H PRN (Reason: pain) Qty: 28 0RF Continued venlafaxine 75 mg capsule,extended release 24hr 75 mg PO DAILY simvastatin 20 mg tablet 20 mg PO DAILY glimepiride 4 mg tablet 8 mg PO DAILY pioglitazone 30 mg tablet 30 mg PO DAILY atorvastatin 80 mg tablet 80 mg PO .QHS aspirin 81 mg tablet,chewable 1 tab PO .qd Rx Instructions: WITH BREAKFAST carvedilol 6.25 mg tablet 6.25 mg PO BID dapagliflozin propanediol [Farxiga] 10 mg tablet 10 mg PO .qd sacubitril-valsartan [Entresto] 49-51 mg tablet 1 tab PO BID spironolactone 25 mg tablet 12.5 mg PO .qd Activity: increase activity as tolerated Diet: advance to your usual diet Print Language: Peruvian Patient Instructions: Oxycodone/Acetaminophen (By mouth) (Percocet, Roxicet), Rib Fracture (DC), Chest Wall Pain (ED) Forms: Portal Instructions Follow Up Appointments: @ 10:30am with Dr. Hall [phone] Discharge Date/Time: 09/20/24 11:48
[2024-09-20 07:42] VITALS: BP 147/91; PULSE 75; TEMP 36.6; O2SAT 95
[2024-09-20 07:56] LABS: Glucometer 142 mg/dL (74-106)
[2024-09-20] MEDS: INSULIN ASPART 300 UNIT/3 ML PEN SUBQ (09:19)
[2024-09-20] MEDS: OXYCODONE HCL 5 MG TABLET PO (09:20)
[2024-09-20] MEDS: VENLAFAXINE HCL ER 75 MG CAPSULE PO (09:20)
[2024-09-20] MEDS: GLIMEPIRIDE 2 MG TABLET 8 MG PO (09:20)
[2024-09-20] MEDS: SPIRONOLACTONE 25 MG TABLET 12.5 MG PO (09:20)
[2024-09-20] MEDS: PIOGLITAZONE 15 MG TABLET 30 MG PO (09:20)
[2024-09-20] MEDS: CARVEDILOL 6.25 MG TABLET PO (09:20)
[2024-09-20] MEDS: SACUBITRIL/VALSARTAN 24 MG-26 MG TABLET 2 TAB PO (09:21)
--- NOTE | 2024-09-20 09:32 | CM.NOTE ---
Rounds made with Dr. Hall, pt will discharge to home today. Pt will f/u with PCP.
[2024-09-20 10:43] VITALS: BP 128/82; PULSE 78; TEMP 36.7; O2SAT 96
[2024-09-20 11:01] VITALS: O2SAT 98
--- NOTE | 2024-09-21 11:44 | CM.DCFOLLOWU ---
09/21 1st attempt. No answer
--- NOTE | 2024-09-25 15:09 | CM.DCFOLLOWU ---
09/25-2nd attempt. No answer
--- NOTE | 2024-09-26 13:46 | CM.DCFOLLOWU ---
09/26- 3rd attempt. No answer
== END 2024-09-20 11:48 | disposition home or self-care (01) ==
LOC: ER 09-19 00:49 → MS 09-19 01:46
PROVIDERS: Admitting Provider Family Medicine; Emergency Provider Emergency Medicine; PCP Family Medicine; Visit Provider Family Medicine
DX: S22.42XA Multiple fractures of ribs, left side, initial encounter for closed fracture (principal); R06.02 Shortness of breath; F17.200 Nicotine dependence, unspecified, uncomplicated; J98.11 Atelectasis; E11.9 Type 2 diabetes mellitus without complications; R07.81 Pleurodynia; I50.42 Chronic combined systolic (congestive) and diastolic (congestive) heart failure; I11.0 Hypertensive heart disease with heart failure; E78.00 Pure hypercholesterolemia, unspecified; F32.A Depression, unspecified; Z79.84 Long term (current) use of oral hypoglycemic drugs; W19.XXXA Unspecified fall, initial encounter
CPT/HCPCS: 36415; 71045; 80048; 80053; 82948; 83735; 85025; 93005; 94667; 94668; 94761; 96374; 96375; 96376; 99285; G0378; J1885; J2270

== ENCOUNTER 2024-10-04 10:13 | Outpatient (OUT) | payer OTHER, SELFPAY ==
--- NOTE | 2024-10-04 10:23 | XR_ITS ---
The [address] [address] Patient Name: TERA ROBERTO MRN: [id number] date: 1975 Sex: M Assigned Patient Location: [facility] Current Patient Location: [facility] Accession/Order Number: [id number] Exam Date: 10/04/2024 10:53 Report Date: 10/04/2024 11:04 At the request of: ADARSH HORTON MD Procedure: XR ribs LT 2V PA AND LATERAL CHEST: CLINICAL HISTORY: Patient fell 3 weeks ago on stairs. Left rib fractures. Continued anterior and lateral pain COMPARISON: 09/18/2024 There is a small left pleural effusion which may be minimally larger. Adjacent basilar atelectasis is possible. A trace amount of pleural fluid on the right is also suspected. There is no additional consolidation. No pneumothorax is seen. The cardiac, hilar and mediastinal silhouettes are within normal limits. There is no vascular congestion. There is slight dextroscoliotic curvature and degenerative changes at the spine. XR/XR ribs LT 2V IMPRESSION: PLEURAL EFFUSIONS, LEFT LARGER THAN RIGHT. POTENTIAL MINIMAL LEFT BASILAR ATELECTASIS. NO PNEUMOTHORAX. LEFT RIBS - 3 views COMPARISON: 09/17/2024 AP and both oblique views of the ribs were obtained. There are multiple slightly displaced lateral left rib fractures involving the fifth through eighth ribs. The sixth is still the most displaced. No additional fractures are noted. There is a small left pleural effusion as well as basilar atelectasis. IMPRESSION: MULTIPLE BILATERAL LEFT RIB FRACTURES, SIMILAR THE PRIOR. MILD LEFT BASILAR PLEURAL-PARENCHYMAL CHANGE. Impression dictated by: Marialuisa Brizuela M.D.10/04/2024 11:04 AM Dictation Location: [place] [address] Electronically authenticated by: [id number] Y Date: 10/04/2024 11:04
--- NOTE | 2024-10-04 10:23 | XR_ITS ---
The [address] [address] Patient Name: TERA ROBERTO MRN: [id number] date: 1975 Sex: M Assigned Patient Location: [facility] Current Patient Location: [facility] Accession/Order Number: [id number] Exam Date: 10/04/2024 10:53 Report Date: 10/04/2024 11:04 At the request of: ADARSH HORTON MD Procedure: XR ribs LT 2V PA AND LATERAL CHEST: CLINICAL HISTORY: Patient fell 3 weeks ago on stairs. Left rib fractures. Continued anterior and lateral pain COMPARISON: 09/18/2024 There is a small left pleural effusion which may be minimally larger. Adjacent basilar atelectasis is possible. A trace amount of pleural fluid on the right is also suspected. There is no additional consolidation. No pneumothorax is seen. The cardiac, hilar and mediastinal silhouettes are within normal limits. There is no vascular congestion. There is slight dextroscoliotic curvature and degenerative changes at the spine. XR/XR chest 2V IMPRESSION: PLEURAL EFFUSIONS, LEFT LARGER THAN RIGHT. POTENTIAL MINIMAL LEFT BASILAR ATELECTASIS. NO PNEUMOTHORAX. LEFT RIBS - 3 views COMPARISON: 09/17/2024 AP and both oblique views of the ribs were obtained. There are multiple slightly displaced lateral left rib fractures involving the fifth through eighth ribs. The sixth is still the most displaced. No additional fractures are noted. There is a small left pleural effusion as well as basilar atelectasis. IMPRESSION: MULTIPLE BILATERAL LEFT RIB FRACTURES, SIMILAR THE PRIOR. MILD LEFT BASILAR PLEURAL-PARENCHYMAL CHANGE. Impression dictated by: Marialuisa Brizuela M.D.10/04/2024 11:04 AM Dictation Location: [place] [address] Electronically authenticated by: [id number] Y Date: 10/04/2024 11:04
--- OUTSIDE RECORDS SUMMARY | 2024-10-04 10:26 | XMS_ITS | CCD ---
Author Organization [facility] Care Team Providers Care Gang Saw Operator Name Role Phone RAFAEL, DR ALTAMIRANO Admitting [...] disease (2 sources) Atherosclerotic heart disease [place] coronary artery without angina pectoris; Translations: [Atherosclerotic heart disease [place] coronary artery without angina pectoris] Onset: 10-13-2023 [...] Range Facility Office Visiton 12-05-2023 Follow-up visit [id number] Tera Roberto 1975 M Date Provider Department Center 12/05/2023 YAKELIN MICHELLE TATE Abreu Family History Problem Relation Age of Onset Heart attack Maternal Grandfather Family Status - Relation Status Age at Maternal Grandfather Level of Service:21075 SC OFFICE/OUTPATIENT ESTABLISHED MOD MDM 30 MIN Normal [facility] 36on 12-01-2023 36 Patient informed. Normal [facility] 36on 11-29-2023 36 Please let him know his EF improved to 55%. He no longer needs to wear the LifeVest. Follow-up as scheduled. Thanks! Normal [facility] Telephoneon 11-29-2023 Telephone [id number] Tera Roberto 1975 M Date Provider Department Center 11/29/2023 ZACK OLSON Family History Problem Relation Age of Onset Heart attack Maternal Grandfather Family Status - Relation Status Age at Maternal Grandfather Normal [facility] 36on 11-02-2023 36 2nd attempt: LMOM Normal [facility] Follow-Upon 10-13-2023 Follow-Up [id number] Tera Roberto 1975 [facility] Provider Department Center 10/13/2023 166-ZACK MONTGOMERY TATE [facility] Family History Problem Relation Age of Onset Heart attack Maternal Grandfather Family Status - Relation Status Age at Maternal Grandfather Level of Service:18045 SC OFFICE/OUTPATIENT ESTABLISHED MOD MDM 30 MIN Reason for Visit and Comments: Hospital Follow-up [832] Congestive Heart Failure [127] Hypertension [231030] [facility] 10-11-2023 36 Called patient and left a message to call me to schedule a pulmonary hospital follow up with either Dr. Valenzuela or Dr. Diamond. [facility] 10-10-2023 36 Discharge date: Call date: [...] was very happy with his experience at [facility] and he wanted to thank everyone for saving his life. [facility] Documentationon 10-10-2023 Documentation [id number] CamilleTera 1975 M Date Provider Department Center 10/10/[id number] ACEVEDO [facility] No family history on file Reason for Visit and Comments: HF inpatient satisfaction survey sent. [Other] [facility] Telephoneon 10-10-2023 Telephone [phone] CamilleTera 1975 M Date Provider Department Center 10/10/[id number] ACEVED[facility] No family history on file [facility] 3010-09-2023 30 The patient is Moderately [...] and behaviors that affect risk of falls [place] fall precautions as indicated by assessment Problem: [...] the next 3 months Outcome: Progressing Normal [facility] BASIC METABOLIC PANELon 03-0 Anion gap [Moles/Vol] 12 mmol/L Normal 7-20 [facility] Comment on above: Performed By: #### L [id number] ####[facility] (BEAKER)[address] [place] [address] Calcium [Mass/Vol] 8.9 mg/dL Normal 8.6-10.3 [facility] Comment on above: Performed By: #### L [id number] ####[facility] (BEAKER)[address] [facility] [place] [address] Chloride [Moles/Vol] 104 mmol/L Normal 98-107 [facility] Comment on above: Performed By: #### L [id number] ####[facility] (BEAKER)[address] [facility] [place] [address] CO2 [Moles/Vol] 25 mmol/L Normal 21-31 [facility] Comment on above: Performed By: #### L [id number] ####[facility] (BEAKER)[address] [place] [address] Creatinine [Mass/Vol] 0.89 mg/dL Normal 0.70-1.30 [facility] Comment on above: Performed By: #### L [id number] ####[facility] ([facility])[address] [place] [address] GLOMERULAR FILTRATION RATE ML/MIN/1.73 SQ M.PREDICTED 104.4 mL/min/1.73m*2 Normal >60.0 [facility] Comment on above: Result Comment: [facility]???s estimated glomerular filtration rate (eGFR) will [...] of individuals. Performed By: #### L [id number] ####[facility] ([facility])[address] [place] [address] Glucose [Mass/Vol] 119 mg/dL High 70-100 [facility] Comment on above: Performed By: #### L [id number] ####[facility] ([facility])[address] [place] [address] Potassium [Moles/Vol] 4.1 mmol/L Normal 3.5-5.1 [facility] Comment on above: Performed By: #### L [id number] ####[facility] ([facility])[address] [place] [address] Sodium [Moles/Vol] 137 mmol/L Normal 136-145 [facility] Comment on above: Performed By: #### L [id number] ####[facility] ([facility])[address] [place] [address] Urea nitrogen [Mass/Vol] 29 mg/dL High 7-25 [facility] Comment on above: Performed By: #### L [id number] ####[facility] ([facility])[address] [place] [address] UREA NITROGEN/CREATININE (MASS RATIO) IN SER/PLAS 32.6 Normal [facility] Comment on above: Performed By: #### L [id number] ####[facility] ([facility])[address] [place] [address] CBC WITH AUTO DIFFERENTIALon 10-09-2023 Basophils (Bld) [#/Vol] 0.04 10*3/uL Normal 0.00-0.20 [facility] Comment on above: Performed By: #### L [id number] ####[facility] ([facility])[address] [place] [address] Basophils/100 WBC (Bld) 0.7 % Normal 0.0-1.0 [facility] Comment on above: Performed By: #### L [id number] ####[facility] ([facility])[address] [place] [address] Eosinophils (Bld) [#/Vol] 0.12 10*3/uL Normal 0.00-0.50 [facility] Comment on above: Performed By: #### L [id number] ####[facility] ([facility])[address] [place] [address] Eosinophils/100 WBC (Bld) 2.1 % Normal 0.0-6.0 [facility] Comment on above: Performed By: #### L [id number] ####[facility] ([facility])[address] [place] [address] Erythrocyte distribution width (RBC) [Ratio] 12.0 % Normal 11.5-15.0 [facility] Comment on above: Performed By: #### L [id number] ####[facility] ([facility])[address] [place] [address] ERYTHROCYTE MEAN CORPUSCULAR HEMOGLOBIN CONCENTRATION (G/DL) BY AUTOMATED 34.2 g/dL Normal 32.0-35.0 [facility] Comment on above: Performed By: #### L [id number] ####[facility] (BEAKER)[address] [place] [address] Hematocrit (Bld) [Volume fraction] 47.7 % Normal 39.0-55.0 [facility] Comment on above: Performed By: #### L [id number] ####[facility] (BEAKER)[address] [place] [address] Hemoglobin (Bld) [Mass/Vol] 16.3 g/dL Normal 13.0-17.0 [facility] Comment on above: Performed By: #### L [id number] ####[facility] (BEAKER)[address] [place] [address] Immature granulocytes (Bld) [#/Vol] 0.03 10*3/uL Normal 0.00-0.20 [facility] Comment on above: Performed By: #### L [id number] ####[facility] (BEAKER)[address] [place] [address] Immature granulocytes/100 WBC (Bld) 0.5 % Normal 0.0-1.0 [facility] Comment on above: Performed By: #### L [id number] ####[facility] (BEAKER)[address] [place] [address] Lymphocytes (Bld) [#/Vol] 1.51 10*3/uL Normal 1.20-4.00 [facility] Comment on above: Performed By: #### L [id number] ####[facility] (BEAKER)[address] [place] [address] Lymphocytes/100 WBC (Bld) 26.2 % Normal 20.0-45.0 [facility] Comment on above: Performed By: #### L [id number] ####[facility] (BEAKER)[address] [place] [address] MCH (RBC) [Entitic mass] 35.0 pg High 27.0-33.0 [facility] Comment on above: Performed By: #### L [id number] ####[facility] (BEAKER)[address] [place] [address] MCV (RBC) [Entitic vol] 102.4 fL High 82.0-98.0 [facility] Comment on above: Performed By: #### L [id number] ####[facility] (BEAKER)[address] [place] [address] Monocytes (Bld) [#/Vol] 0.80 10*3/uL Normal 0.10-1.00 [facility] Comment on above: Performed By: #### L [id number] ####[facility] (AKER)[address] [place] [address] Monocytes/100 WBC (Bld) 13.9 % High 5.0-12.0 [facility] Comment on above: Performed By: #### L [id number] ####[facility] (AKER)[address] [place] [address] Neutrophils (Bld) [#/Vol] 3.26 10*3/uL Normal 1.60-7.60 [facility] Comment on above: Performed By: #### L [id number] ####[facility] (AKER)[address] [place] [address] Neutrophils/100 WBC (Bld) 56.6 % Normal 40.0-72.0 [facility] Comment on above: Performed By: #### L [id number] ####[facility] (BEAKER)[address] [place] [address] NRBC (PER 100 WBCS) BY AUTOMATED COUNT 0.0 % Normal 0 [facility] Comment on above: Performed By: #### L [id number] ####[facility] (BEAKER)[address] [place] [address] PLATELETS (10*3/UL) IN BLOOD AUTOMATED COUNT 181 10*3/uL Normal 150-400 [facility] Comment on above: Performed By: #### L [id number] ####[facility] (BEAKER)[address] [place] [address] RBC (Bld) [#/Vol] 4.66 10*6/uL Normal 4.20-5.70 [facility] Comment on above: Performed By: #### L [id number] ####[facility] ([facility])[address] [place] [address] WBC (Bld) [#/Vol] 5.76 10*3/uL Normal 4.00-10.60 [facility] Comment on above: Performed By: #### L [id number] ####[facility] ([facility])[address] [place] [address] MAGNESIUMon 10-09-2023 Magnesium [Mass/Vol] 2.1 mg/dL Normal 1.9-2.7 [facility] Comment on above: Performed By: #### L [id number] #### [facility] ([facility]) [address] [place] [address] POCT GLUCOSE METER UNSOLICIT ED RESULTSon 10-09-2023 Glucose [Mass/Vol] 160 mg/dL High 70-105 [facility] Comment on above: Order Comment: Waive d Testing in the ED is performed under the ED CLIA certificate #[id number]. Result Comment: [email or web address] Performed By: #### L [id number] ####[facility] ([facility])[address] [facility] [place] [place] [address] Glucose [Mass/Vol] 148 mg/dL High 70-105 [facility] Comment on above: Order Comment: Waive d Testing in the ED is performed under the ED CLIA certificate #[id number]. Result Comment: [email or web address] Performed By: #### L [id number] ####[facility] ([facility])[address] [facility] [place] [address] Glucose [Mass/Vol] 146 mg/dL High 70-105 [facility] Comment on above: Order Comment: Waive d Testing in the ED is performed under the ED CLIA certificate #[id number]. Result Comment: [email or web address] Performed By: #### L [id number] ####[facility] ([facility])[address] [place] [address] 30on 10-08-2023 30 The patient is Moderately [...] and behaviors that affect risk of falls [place] fall precautions as indicated by assessment Educate [...] and prevent overall improvement and discharge Normal [facility] 30 The patient is Moderately Stable - Low risk of patient condition declining or worsening The patient's goals for the shift include comfort The clinical goals for the shift include hemodynamically stable Problem: Pain - Adult Goal: Verbalizes/displays adequate comfort level or baseline comfort level Outcome: Progressing Problem: Safety - Adult Goal: Free from fall injury Outcome: Progressing Flowsheets (Taken 10/08/2023 0754) Free from fall injury: Assess patient frequently for physical needs Identify cognitive and physical deficits and behaviors that affect risk of falls [place] fall precautions as indicated by assessment Problem: [...] the next 3 months Outcome: Progressing Normal [facility] 30 The patient is Moderately Stable [...] and behaviors that affect risk of falls [place] fall precautions as indicated by assessment Educate [...] conditions affect the heart Outcome: Progressing Normal [facility] BASIC METABOLIC PANELon 03-0 Anion gap [Moles/Vol] 15 mmol/L Normal 7-20 [facility] Comment on above: Performed By: #### L [id number] #### [facility] (BEAKER) [address] [place] [address] Calcium [Mass/Vol] 9.0 mg/dL Normal 8.6-10.3 [facility] Comment on above: Performed By: #### L [id number] #### [facility] (BEAKER) [address] [place] [address] Chloride [Moles/Vol] 101 mmol/L Normal 98-107 [facility] Comment on above: Performed By: #### L [id number] #### [facility] (BEAKER) [address] [place] [address] CO2 [Moles/Vol] 25 mmol/L Normal 21-31 [facility] Comment on above: Performed By: #### L [id number] #### [facility] (BEAKER) [address] [place] [address] Creatinine [Mass/Vol] 1.01 mg/dL Normal 0.70-1.30 [facility] Comment on above: Performed By: #### L [id number] #### [facility] [address] [place] [address] GLOMERULAR FILTRATION RATE ML/MIN/1.73 SQ M.PREDICTED 90.6 mL/min/1.73m*2 Normal >60.0 [facility] Comment on above: Result Comment: [facility]???s estimated glomerular filtration rate (eGFR) will [...] individuals. Performed By: #### L [id number] #### [facility] ([facility]) [address] [place] [address] Glucose [Mass/Vol] 160 mg/dL High 70-100 [facility] Comment on above: Performed By: #### L [id number] #### [facility] ([facility]) [address] [place] [address] Potassium [Moles/Vol] 4.1 mmol/L Normal 3.5-5.1 [facility] Comment on above: Performed By: #### L [id number] #### [facility] ([facility]) [address] [place] [address] Sodium [Moles/Vol] 137 mmol/L Normal 136-145 [facility] Comment on above: Performed By: #### L [id number] #### [facility] ([facility]) [address] [place] [address] Urea nitrogen [Mass/Vol] 34 mg/dL High 7-25 [facility] Comment on above: Performed By: #### L [id number] #### [facility] ([facility]) [address] [place] [address] UREA NITROGEN/CREATININE (MASS RATIO) IN SER/PLAS 33.7 Normal [facility] Comment on above: Performed By: #### L [id number] #### [facility] ([facility]) [address] [place] [address] CBC WITH AUTO DIFFERENTIALon 10-08-2023 Basophils (Bld) [#/Vol] 0.06 10*3/uL Normal 0.00-0.20 [facility] Comment on above: Performed By: #### L [id number] #### [facility] ([facility]) [address] [place] [address] Basophils/100 WBC (Bld) 1.0 % Normal 0.0-1.0 [facility] Comment on above: Performed By: #### L [id number] #### [facility] ([facility]) [address] [place] [address] Eosinophils (Bld) [#/Vol] 0.12 10*3/uL Normal 0.00-0.50 [facility] Comment on above: Performed By: #### L [id number] #### [facility] (BEAKER) [address] [place] [address] Eosinophils/100 WBC (Bld) 2.0 % Normal 0.0-6.0 [facility] Comment on above: Performed By: #### L [id number] #### [facility] [address] [place] [address] Erythrocyte distribution width (RBC) [Ratio] 12.2 % Normal 11.5-15.0 [facility] Comment on above: Performed By: #### L [id number] #### [facility] [address] [place] [address] ERYTHROCYTE MEAN CORPUSCULAR HEMOGLOBIN CONCENTRATION (G/DL) BY AUTOMATED 33.5 g/dL Normal 32.0-35.0 [facility] Comment on above: Performed By: #### L [id number] #### [facility] [address] [place] [address] Hematocrit (Bld) [Volume fraction] 48.0 % Normal 39.0-55.0 [facility] Comment on above: Performed By: #### L [id number] #### [facility] (BEAKER) [address] [place] [address] Hemoglobin (Bld) [Mass/Vol] 16.1 g/dL Normal 13.0-17.0 [facility] Comment on above: Performed By: #### L [id number] #### [facility] (BEAKER) [address] [place] [address] Immature granulocytes (Bld) [#/Vol] 0.02 10*3/uL Normal 0.00-0.20 [facility] Comment on above: Performed By: #### L [id number] #### [facility] (BEAKER) [address] [place] [address] Immature granulocytes/100 WBC (Bld) 0.3 % Normal 0.0-1.0 [facility] Comment on above: Performed By: #### L [id number] #### [facility] ([facility]) [address] [place] [address] Lymphocytes (Bld) [#/Vol] 1.47 10*3/uL Normal 1.20-4.00 [facility] Comment on above: Performed By: #### L [id number] #### [facility] ([facility]) [address] [facility] [place] [address] Lymphocytes/100 WBC (Bld) 24.6 % Normal 20.0-45.0 [facility] Comment on above: Performed By: #### L [id number] #### [facility] ([facility]) [address] [facility] [place] [address] MCH (RBC) [Entitic mass] 34.8 pg High 27.0-33.0 [facility] Comment on above: Performed By: #### L [id number] #### [facility] ([facility]) [address] [place] [address] MCV (RBC) [Entitic vol] 103.9 fL High 82.0-98.0 [facility] Comment on above: Performed By: #### L [id number] #### [facility] ([facility]) [address] [facility] [place] [address] Monocytes (Bld) [#/Vol] 0.85 10*3/uL Normal 0.10-1.00 [facility] Comment on above: Performed By: #### L [id number] #### [facility] ([facility]) [address] [place] [address] Monocytes/100 WBC (Bld) 14.2 % High 5.0-12.0 [facility] Comment on above: Performed By: #### L [id number] #### [facility] ([facility]) [address] [place] [address] Neutrophils (Bld) [#/Vol] 3.46 10*3/uL Normal 1.60-7.60 [facility] Comment on above: Performed By: #### L [id number] #### [facility] ([facility]) [address] [place] [address] Neutrophils/100 WBC (Bld) 57.9 % Normal 40.0-72.0 [facility] Comment on above: Performed By: #### L [id number] #### [facility] ([facility]) [address] [place] [address] NRBC (PER 100 WBCS) BY AUTOMATED COUNT 0.0 % Normal 0 [facility] Comment on above: Performed By: #### L [id number] #### [facility] ([facility]) [address] [place] [address] PLATELETS (10*3/UL) IN BLOOD AUTOMATED COUNT 196 10*3/uL Normal 150-400 [facility] Comment on above: Performed By: #### L [id number] #### [facility] ([facility]) [address] [place] [address] RBC (Bld) [#/Vol] 4.62 10*6/uL Normal 4.20-5.70 [facility] Comment on above: Performed By: #### L [id number] #### [facility] ([facility]) [address] [place] [address] WBC (Bld) [#/Vol] 5.98 10*3/uL Normal 4.00-10.60 [facility] Comment on above: Performed By: #### L [id number] #### [facility] ([facility]) [address] [place] [address] POCT GLUCOSE METER UNSOLICIT ED RESULTSon 10-08-2023 Glucose [Mass/Vol] 171 mg/dL High 70-105 [facility] Comment on above: Order Comment: Waive d Testing in the ED is performed under the ED CLIA certificate #[id number]. Result Comment: [email or web address] Performed By: #### L [id number] ####[facility] ([facility])[address] [place] [address] Glucose [Mass/Vol] 128 mg/dL High 70-105 [facility] Comment on above: Order Comment: Waive d Testing in the ED is performed under the ED CLIA certificate #[id number]. Result Comment: [email or web address] Performed By: #### L [id number] ####[facility] (BEAKER)[address] [place] [address] Glucose [Mass/Vol] 170 mg/dL High 70-105 [facility] Comment on above: Order Comment: Waive d Testing in the ED is performed under the ED CLIA certificate #[id number]. Result Comment: [email or web address] Performed By: #### L [id number] ####[facility] (BEAKER)[address] [place] [address] Glucose [Mass/Vol] 174 mg/dL High 70-105 [facility] Comment on above: Order Comment: Waive d Testing in the ED is performed under the ED CLIA certificate #[id number]. Result Comment: [email or web address] Performed By: #### L [id number] ####[facility] (BEAKER)[address] [place] [address] 30on 10-07-2023 30 The patient is Moderately [...] and behaviors that affect risk of falls [place] fall precautions as indicated by assessment Educate [...] the next 3 months Outcome: Progressing Normal [facility] Og 10-07-2023 SAPNAS -- Attestation signed by Yakelin Herrera MD at 10/07/2023 11:02 AM Yakelin Herrera MD, MPH, [facility], [facility], [facility] Interventional Cardiology Pager Email: [email or web address] Patient: Tera Roberto Procedure Information Date/Time: 10/07/23 1700 Procedures: Coronary angiography Right heart cath Location: [facility] / [facility] (Cath) Providers: Yakelin Herrera MD Clinical information reviewed: Allergies Physical Exam Airway Mallampati: III TM distance: >3 FB Neck ROM: full Cardiovascular Rhythm: regular Rate: normal Dental Pulmonary Abdominal Anesthesia Plan ASA 3 Anesthetic plan and risks discussed with patient. Use of blood products discussed with patient who. Plan discussed with attending. Additional Equipment Requests Normal [facility] BASIC METABOLIC PANELon 03-0 Anion gap [Moles/Vol] 14 mmol/L Normal 7-20 [facility] Comment on above: Performed By: #### L [id number] #### [facility] (BEAKER) [address] [place] [address] Calcium [Mass/Vol] 9.5 mg/dL Normal 8.6-10.3 [facility] Comment on above: Performed By: #### L [id number] #### [facility] (BEAKER) [address] [place] [address] Chloride [Moles/Vol] 101 mmol/L Normal 98-107 [facility] Comment on above: Performed By: #### L [id number] #### [facility] (BEAKER) [address] [place] [address] CO2 [Moles/Vol] 26 mmol/L Normal 21-31 [facility] Comment on above: Performed By: #### L [id number] #### [facility] ([facility]) [address] [place] [address] Creatinine [Mass/Vol] 0.96 mg/dL Normal 0.70-1.30 [facility] Comment on above: Performed By: #### L [id number] #### [facility] ([facility]) [address] [place] [address] GLOMERULAR FILTRATION RATE ML/MIN/1.73 SQ M.PREDICTED 96.3 mL/min/1.73m*2 Normal >60.0 [facility] Comment on above: Result Comment: [facility]???s estimated glomerular filtration rate (eGFR) will [...] individuals. Performed By: #### L [id number] #### [facility] ([facility]) [address] [place] [address] Glucose [Mass/Vol] 208 mg/dL High 70-100 [facility] Comment on above: Performed By: #### L [id number] #### [facility] ([facility]) [address] [place] [address] Potassium [Moles/Vol] 3.9 mmol/L Normal 3.5-5.1 [facility] Comment on above: Performed By: #### L [id number] #### [facility] ([facility]) [address] [place] [address] Sodium [Moles/Vol] 137 mmol/L Normal 136-145 [facility] Comment on above: Performed By: #### L [id number] #### [facility] ([facility]) [address] [place] [address] Urea nitrogen [Mass/Vol] 30 mg/dL High 7-25 [facility] Comment on above: Performed By: #### L [id number] #### [facility] ([facility]) [address] [place] [address] UREA NITROGEN/CREATININE (MASS RATIO) IN SER/PLAS 31.3 Normal [facility] Comment on above: Performed By: #### L [id number] #### [facility] ([facility]) [address] [place] [address] CBC WITH AUTO DIFFERENTIALon 10-07-2023 Basophils (Bld) [#/Vol] 0.03 10*3/uL Normal 0.00-0.20 [facility] Comment on above: Performed By: #### L [id number] #### [facility] ([facility]) [address] [address] Basophils/100 WBC (Bld) 0.6 % Normal 0.0-1.0 [facility] Comment on above: Performed By: #### L [id number] #### [facility] ([facility]) [address] [place] [address] Eosinophils (Bld) [#/Vol] 0.11 10*3/uL Normal 0.00-0.50 [facility] Comment on above: Performed By: #### L [id number] #### [facility] ([facility]) [address] [place] [address] Eosinophils/100 WBC (Bld) 2.0 % Normal 0.0-6.0 [facility] Comment on above: Performed By: #### L [id number] #### [facility] ([facility]) [address] [place] [address] Erythrocyte distribution width (RBC) [Ratio] 12.2 % Normal 11.5-15.0 [facility] Comment on above: Performed By: #### L [id number] #### [facility] ([facility]) [address] [place] [address] ERYTHROCYTE MEAN CORPUSCULAR HEMOGLOBIN CONCENTRATION (G/DL) BY AUTOMATED 34.3 g/dL Normal 32.0-35.0 [facility] Comment on above: Performed By: #### L [id number] #### [facility] ([facility]) [address] [place] [address] Hematocrit (Bld) [Volume fraction] 50.5 % Normal 39.0-55.0 [facility] Comment on above: Performed By: #### L [id number] #### [facility] ([facility]) [address] [address] Hemoglobin (Bld) [Mass/Vol] 17.3 g/dL High 13.0-17.0 [facility] Comment on above: Performed By: #### L [id number] #### [facility] ([facility]) [address] [place] [address] Immature granulocytes (Bld) [#/Vol] 0.02 10*3/uL Normal 0.00-0.20 [facility] Comment on above: Performed By: #### L [id number] #### [facility] ([facility]) [address] [place] [address] Immature granulocytes/100 WBC (Bld) 0.4 % Normal 0.0-1.0 [facility] Comment on above: Performed By: #### L [id number] #### [facility] ([facility]) [address] [place] [address] Lymphocytes (Bld) [#/Vol] 1.32 10*3/uL Normal 1.20-4.00 [facility] Comment on above: Performed By: #### L [id number] #### [facility] ([facility]) [address] [place] [address] Lymphocytes/100 WBC (Bld) 24.3 % Normal 20.0-45.0 [facility] Comment on above: Performed By: #### L [id number] #### [facility] ([facility]) [address] [place] [address] MCH (RBC) [Entitic mass] 34.9 pg High 27.0-33.0 [facility] Comment on above: Performed By: #### L [id number] #### [facility] ([facility]) [address] [place] [address] MCV (RBC) [Entitic vol] 102.0 fL High 82.0-98.0 [facility] Comment on above: Performed By: #### L [id number] #### [facility] ([facility]) [address] [place] [address] Monocytes (Bld) [#/Vol] 0.68 10*3/uL Normal 0.10-1.00 [facility] Comment on above: Performed By: #### L [id number] #### [facility] ([facility]) [address] [place] [address] Monocytes/100 WBC (Bld) 12.5 % High 5.0-12.0 [facility] Comment on above: Performed By: #### L [id number] #### [facility] ([facility]) [address] [place] [address] Neutrophils (Bld) [#/Vol] 3.27 10*3/uL Normal 1.60-7.60 [facility] Comment on above: Performed By: #### L [id number] #### [facility] ([facility]) [address] [place] [address] Neutrophils/100 WBC (Bld) 60.2 % Normal 40.0-72.0 [facility] Comment on above: Performed By: #### L [id number] #### [facility] ([facility]) [address] [place] [address] NRBC (PER 100 WBCS) BY AUTOMATED COUNT 0.0 % Normal 0 [facility] Comment on above: Performed By: #### L [id number] #### [facility] ([facility]) [address] [place] [address] PLATELETS (10*3/UL) IN BLOOD AUTOMATED COUNT 216 10*3/uL Normal 150-400 [facility] Comment on above: Performed By: #### L [id number] #### [facility] [address] [place] [address] RBC (Bld) [#/Vol] 4.95 10*6/uL Normal 4.20-5.70 [facility] Comment on above: Performed By: #### L [id number] #### [facility] ([facility]) [address] [place] [address] WBC (Bld) [#/Vol] 5.43 10*3/uL Normal 4.00-10.60 [facility] Comment on above: Performed By: #### L [id number] #### [facility] ([facility]) [address] [place] [address] CONSULTon 10-07-2023 CONSULT -- Attestation signed by [...] bilateral hilar lymphadenopathy. Patient was transferred to [facility] for further evaluation, echocardiogram showed [...] No Food Insecurity (more content not included)... [facility] HPon 10-07-2023 HP -- Attestation signed by Yakelin Herrera MD at 10/07/2023 11:02 AM Yakelin Herrera MD, MPH, [facility], [facility], [facility] Interventional Cardiology Pager Email: [email or web address] H&[email or web address] reviewed. Patient with multiple coronary artery [...] were addressed and answered. Florina Prasad MD Manager Content - PGY5 [facility] Normal [facility] POCT GLUCOSE METER UNSOLICIT ED RESULTSon 10-07-2023 Glucose [Mass/Vol] 173 mg/dL High 70-105 [facility] Comment on above: Order Comment: Waive d Testing in the ED is performed under the ED CLIA certificate #[id number]. Result Comment: [email or web address] Performed By: #### L [id number] #### [facility] ([facility]) [address] [place] [address] Glucose [Mass/Vol] 169 mg/dL High 70-105 [facility] Comment on above: Order Comment: Waive d Testing in the ED is performed under the ED CLIA certificate #[id number]. Result Comment: [email or web address] Performed By: #### L [id number] ####[facility] ([facility])[address] [place] [address] Glucose [Mass/Vol] 242 mg/dL High 70-105 [facility] Comment on above: Order Comment: Waive d Testing in the ED is performed under the ED CLIA certificate #[id number]. Result Comment: [email or web address] Performed By: #### L [id number] #### [facility] ([facility]) [address] [place] [address] 30on 10-06-2023 30 The patient is Moderately [...] and behaviors that affect risk of falls [place] fall precautions as indicated by assessment Educate [...] and prevent overall improvement and discharge Normal [facility] 30 The patient is Moderately Stable - Low risk of patient condition declining or worsening The patient's goals for the shift include rest The clinical goals for the shift include comfort/vss Normal [facility] 30 The patient is Moderately Stable [...] and maintained or improved Outcome: Progressing Normal [facility] B-TYPE NATRIURETIC PEPTIDEon 10-06-2023 Natriuretic peptide B (Bld) [Mass/Vol] 752 pg/mL High 0-100 [facility] Comment on above: Performed By: #### L [id number] #### [facility] ([facility]) [address] [place] [address] Natriuretic peptide B (Bld) [Mass/Vol] 711 pg/mL High 0-100 [facility] Comment on above: Performed By: #### L [id number] #### [facility] [address] [place] [address] BASIC METABOLIC PANELon 09-09 Anion gap [Moles/Vol] 16 mmol/L Normal 7-20 [facility] Comment on above: Performed By: #### L [id number] ####[facility] [place] [address] Calcium [Mass/Vol] 9.7 mg/dL Normal 8.6-10.3 [facility] Comment on above: Performed By: #### L [id number] ####[facility] ([facility])[address] [place] [address] Chloride [Moles/Vol] 99 mmol/L Normal 98-107 [facility] Comment on above: Performed By: #### L [id number] ####[facility] ([facility])[address] [place] [address] CO2 [Moles/Vol] 26 mmol/L Normal 21-31 [facility] Comment on above: Performed By: #### L [id number] ####[facility] ([facility])[address] [place] [address] Creatinine [Mass/Vol] 1.03 mg/dL Normal 0.70-1.30 [facility] Comment on above: Performed By: #### L [id number] ####[facility] ([facility])[address] [place] [address] GLOMERULAR FILTRATION RATE ML/MIN/1.73 SQ M.PREDICTED 88.5 mL/min/1.73m*2 Normal >60.0 [facility] Comment on above: Result Comment: [facility]???s estimated glomerular filtration rate (eGFR) will [...] of individuals. Performed By: #### L [id number] ####[facility] ([facility])[address] [facility] [place] [address] Glucose [Mass/Vol] 185 mg/dL High 70-100 [facility] Comment on above: Performed By: #### L [id number] ####[facility] ([facility])[address] [place] [address] Potassium [Moles/Vol] 4.3 mmol/L Normal 3.5-5.1 [facility] Comment on above: Performed By: #### L [id number] ####[facility] ([facility])[address] [place] [address] Sodium [Moles/Vol] 137 mmol/L Normal 136-145 [facility] Comment on above: Performed By: #### L [id number] ####[facility] ([facility])[address] [place] [address] Urea nitrogen [Mass/Vol] 22 mg/dL Normal 7-25 [facility] Comment on above: Performed By: #### L [id number] ####[facility] [facility] [place] [address] UREA NITROGEN/CREATININE (MASS RATIO) IN SER/PLAS 21.4 Normal [facility] Comment on above: Performed By: #### L [id number] ####[facility] ([facility])[address] [place] [address] Anion gap [Moles/Vol] 16 mmol/L Normal 7-20 [facility] Comment on above: Performed By: #### L [id number] #### [facility] ([facility] [address] [place] [address] Calcium [Mass/Vol] 9.6 mg/dL Normal 8.6-10.3 [facility] Comment on above: Performed By: #### L [id number] #### [facility] ([facility]) [address] [place] [address] Chloride [Moles/Vol] 99 mmol/L Normal 98-107 [facility] Comment on above: Performed By: #### L [id number] #### [facility] ([facility]) [address] [place] [address] CO2 [Moles/Vol] 26 mmol/L Normal 21-31 [facility] Comment on above: Performed By: #### L [id number] #### [facility] ([facility]) [address] [place] [address] Creatinine [Mass/Vol] 0.98 mg/dL Normal 0.70-1.30 [facility] Comment on above: Performed By: #### L [id number] #### [facility] ([facility]) [address] [place] [address] GLOMERULAR FILTRATION RATE ML/MIN/1.73 SQ M.PREDICTED 93.9 mL/min/1.73m*2 Normal >60.0 [facility] Comment on above: Result Comment: [facility]???s estimated glomerular filtration rate (eGFR) will [...] individuals. Performed By: #### L [id number] #### [facility] ([facility]) [address] [place] [address] Glucose [Mass/Vol] 176 mg/dL High 70-100 [facility] Comment on above: Performed By: #### L [id number] #### [facility] ([facility]) [address] [place] [address] Potassium [Moles/Vol] 4.3 mmol/L Normal 3.5-5.1 [facility] Comment on above: Performed By: #### L [id number] #### [facility] ([facility]) [address] [facility] [place] [address] Sodium [Moles/Vol] 137 mmol/L Normal 136-145 [facility] Comment on above: Performed By: #### L [id number] #### [facility] ([facility]) [address] [facility] [place] [address] Urea nitrogen [Mass/Vol] 22 mg/dL Normal 7-25 [facility] Comment on above: Performed By: #### L [id number] #### [facility] ([facility]) [address] [facility] [place] [address] UREA NITROGEN/CREATININE (MASS RATIO) IN SER/PLAS 22.4 Normal [facility] Comment on above: Performed By: #### L [id number] #### [facility] ([facility]) [address] [place] [address] CBC WITH AUTO DIFFERENTIALon 10-06-2023 Basophils (Bld) [#/Vol] 0.06 10*3/uL Normal 0.00-0.20 [facility] Comment on above: Performed By: #### L [id number] ####[facility] ([facility])[address] [place] [address] Basophils/100 WBC (Bld) 1.0 % Normal 0.0-1.0 [facility] Comment on above: Performed By: #### L [id number] ####[facility] ([facility])[address] [place] [address] Eosinophils (Bld) [#/Vol] 0.11 10*3/uL Normal 0.00-0.50 [facility] Comment on above: Performed By: #### L [id number] ####[facility] ([facility])[address] [place] [address] Eosinophils/100 WBC (Bld) 1.8 % Normal 0.0-6.0 [facility] Comment on above: Performed By: #### L [id number] ####[facility] ([facility] [place] [address] Erythrocyte distribution width (RBC) [Ratio] 12.3 % Normal 11.5-15.0 [facility] Comment on above: Performed By: #### L [id number] ####[facility] ([facility])[address] [place] [address] ERYTHROCYTE MEAN CORPUSCULAR HEMOGLOBIN CONCENTRATION (G/DL) BY AUTOMATED 34.1 g/dL Normal 32.0-35.0 [facility] Comment on above: Performed By: #### L [id number] ####[facility] ([facility] [place] [address] Hematocrit (Bld) [Volume fraction] 50.7 % Normal 39.0-55.0 [facility] Comment on above: Performed By: #### L [id number] ####[facility] ([facility])[address] [place] [address] Hemoglobin (Bld) [Mass/Vol] 17.3 g/dL High 13.0-17.0 [facility] Comment on above: Performed By: #### L [id number] ####[facility] ([facility])[address] [place] [address] Immature granulocytes (Bld) [#/Vol] 0.02 10*3/uL Normal 0.00-0.20 [facility] Comment on above: Performed By: #### L [id number] ####[facility] ([facility])[address] [place] [address] Immature granulocytes/100 WBC (Bld) 0.3 % Normal 0.0-1.0 [facility] Comment on above: Performed By: #### L [id number] ####[facility] ([facility])[address] [place] [address] Lymphocytes (Bld) [#/Vol] 1.25 10*3/uL Normal 1.20-4.00 [facility] Comment on above: Performed By: #### L [id number] ####[facility] ([facility])[address] [place] [address] Lymphocytes/100 WBC (Bld) 20.1 % Normal 20.0-45.0 [facility] Comment on above: Performed By: #### L [id number] ####[facility] ([facility])[address] [place] [address] MCH (RBC) [Entitic mass] 34.7 pg High 27.0-33.0 [facility] Comment on above: Performed By: #### L [id number] ####[facility] ([facility])[address] [place] [address] MCV (RBC) [Entitic vol] 101.6 fL High 82.0-98.0 [facility] Comment on above: Performed By: #### L [id number] ####[facility] ([facility])[address] [place] [address] Monocytes (Bld) [#/Vol] 0.75 10*3/uL Normal 0.10-1.00 [facility] Comment on above: Performed By: #### L [id number] ####[facility] ([facility])[address] [place] [address] Monocytes/100 WBC (Bld) 12.0 % Normal 5.0-12.0 [facility] Comment on above: Performed By: #### L [id number] ####[facility] ([facility])[address] [place] [address] Neutrophils (Bld) [#/Vol] 4.04 10*3/uL Normal 1.60-7.60 [facility] Comment on above: Performed By: #### L [id number] ####[facility] ([facility])[address] [place] [address] Neutrophils/100 WBC (Bld) 64.8 % Normal 40.0-72.0 [facility] Comment on above: Performed By: #### L [id number] ####[facility] ([facility])[address] [place] [address] NRBC (PER 100 WBCS) BY AUTOMATED COUNT 0.0 % Normal 0 [facility] Comment on above: Performed By: #### L [id number] ####[facility] ([facility])[address] [place] [address] PLATELETS (10*3/UL) IN BLOOD AUTOMATED COUNT 219 10*3/uL Normal 150-400 [facility] Comment on above: Performed By: #### L [id number] ####[facility] ([facility])[address] [place] [address] RBC (Bld) [#/Vol] 4.99 10*6/uL Normal 4.20-5.70 [facility] Comment on above: Performed By: #### L [id number] ####[facility] ([facility])[address] [place] [address] WBC (Bld) [#/Vol] 6.23 10*3/uL Normal 4.00-10.60 [facility] Comment on above: Performed By: #### L [id number] ####[facility] ([facility])[address] [place] [address] CONSULTon 10-06-2023 CONSULT -- Attestation signed by [...] obesity, LARS, tobacco dependence intially presents to [facility] [place] after sudden onset SOB. He woke up [...] for takotsubo cardiomyopathy. Patient was transferred to [facility] for further evalaution. Upon arrival, [...] QT Interval 404 QTC CALCULATION(BAZETT) 488 P [place] 50 R-Houston 0 T Wave [place] 61 Impression Sinus rhythm with occasional Premature [...] 12 l (more content not included)... Normal [facility] CONSULT Clinical Nutrition Assessment Name: Tera [...] with questions and contact the dietitian via [employer] chat 8A-4P Tuesday-Tuesday. Or call the dietitian's office at extension [phone]. For weekends/holidays, the dietitian's can be reached by paging [phone] from 9A-3P. Unable to be reached via [employer] chat on Tuesday & .) [facility] -- Attestation signed by [...] obesity, LARS, tobacco dependence intially presents to [facility] after sudden onset SOB. He woke up [...] for takotsubo cardiomyopathy. Patient was transferred to [facility] for further evalaution. Upon arrival, [...] QT Interval 404 QTC CALCULATION(BAZETT) 488 P [place] 50 R-[place] 0 T Wave [place] 61 Impression Sinus rhythm with occasional Premature [...] 12 l (more content not included)... Normal [facility] LEGIONELLA ANTIGEN, URINEon 10-06-2023 LEGIONELLA AG, UR Negative Normal NEG [facility] Comment on above: Result Comment: L. p neumophila serogroup 1 antigen not detected. A negative result does not exclude infection with Leginella pnemophila serogroup 1 nor does it rule out other microbial-caused respiratory infections of disease caused by other serogroups of Legionella pneumophila. Test Performed by [facility] [employer] [address] [place] [address] - Released 10/06/2023 20:50 Performed By: #### L [id number] ####[facility] [id number] [place] [address] LIPID PANELon 10-06-2023 CHOL/HDL 4.5 mg/dL Normal [facility] Comment on above: Performed By: #### L [id number] #### [facility] ([facility]) [address] [place] [address] Cholesterol [Mass/Vol] 229 mg/dL High 120-200 [facility] Comment on above: Performed By: #### L [id number] #### [facility] ([facility]) [address] [place] [address] CHOLESTEROL IN LDL (MG/DL) IN SERUM OR PLASMA BY CALCULATION Normal [facility] Comment on above: Result Comment: Calc ulated LDL invalid, triglycerides >400 mg/dl Performed By: #### L [id number] #### [facility] ([facility]) [address] [place] [address] Magnesium [Mass/Vol] 469 mg/dL High 40-149 [facility] Comment on above: Result Comment: TRIG LYCERIDE REFERENCE RANGE: 20 YEARS AND OLDER CARDIOVASCULAR RISK LESS THAN 150 mg/dL LOW RISK 150 TO 199 mg/dL BORDERLINE RISK 200 mg/dL AND GREATER HIGH RISK Performed By: #### L [id number] #### [facility] ([facility]) [address] [place] [address] Magnesium [Mass/Vol] 51 mg/dL Normal 23-92 [facility] Comment on above: Performed By: #### L [id number] #### [facility] ([facility]) [address] [place] [address] NON HDL CHOL. (LDL+VLDL) 178 Normal [facility] Comment on above: Performed By: #### L [id number] #### [facility] ([facility]) [address] [place] [address] TOTAL VLDL-C 94 mg/dL High 0-40 [facility] Comment on above: Performed By: #### L [id number] #### [facility] ([place]) [address] [place] [address] POCT GLUCOSE METER UNSOLICIT ED RESULTSon 10-06-2023 Glucose [Mass/Vol] 276 mg/dL High 70-105 [facility] Comment on above: Order Comment: Waive d Testing in the ED is performed under the ED CLIA certificate #[id number]. Result Comment: [email or web address] Performed By: #### L [id number] #### [facility] ([facility]) [address] [facility] [place] [address] Glucose [Mass/Vol] 187 mg/dL High 70-105 [facility] Comment on above: Order Comment: Waive d Testing in the ED is performed under the ED CLIA certificate #[id number]. Result Comment: [email or web address] Performed By: #### L [id number] #### [facility] ([place]) [address] [facility] [place] [address] Glucose [Mass/Vol] 183 mg/dL High 70-105 [facility] Comment on above: Order Comment: Waive d Testing in the ED is performed under the ED CLIA certificate #[id number]. Result Comment: [email or web address] Performed By: #### L [id number] #### [facility] [facility] ([place]) [address] [facility] [address] Glucose [Mass/Vol] 183 mg/dL High 70-105 [facility] Comment on above: Order Comment: Waive d Testing in the ED is performed under the ED CLIA certificate #[id number]. Result Comment: [email or web address] Performed By: #### L [id number] ####[facility] ([place])[address] [facility] [place] [address] STREP PNEUMONIAE ANTIGEN, UR INEon 10-06-2023 STREPTOCOCCUS PNEUMONIAE AG PRESENCE IN URINE Negative Normal Negative [facility] Comment on above: Performed By: #### L [id number] ####[facility] ([facility])[address] [place] [address] TROPONIN Ion 10-06-2023 Troponin I.cardiac [Mass/Vol] 0.03 ng/mL Normal 0.00-0.04 [facility] Comment on above: Performed By: #### L [id number] ####[facility] ([facility])[address] [place] [address] CBCon 10-05-2023 Erythrocyte distribution width (RBC) [Ratio] 12.3 % Normal 11.5-15.0 [facility] Comment on above: Performed By: #### L [id number] #### [facility] ([facility]) [address] [place] [address] ERYTHROCYTE MEAN CORPUSCULAR HEMOGLOBIN CONCENTRATION (G/DL) BY AUTOMATED 33.8 g/dL Normal 32.0-35.0 [facility] Comment on above: Performed By: #### L [id number] #### [facility] ([facility]) [address] [place] [address] Hematocrit (Bld) [Volume fraction] 49.4 % Normal 39.0-55.0 [facility] Comment on above: Performed By: #### L [id number] #### [facility] ([facility]) [address] [place] [address] Hemoglobin (Bld) [Mass/Vol] 16.7 g/dL Normal 13.0-17.0 [facility] Comment on above: Performed By: #### L [id number] #### [facility] ([facility]) [address] [place] [address] IMMATURE PLATELET FRACTION % 11.1 % High 0.8-6.3 [facility] Comment on above: Performed By: #### L [id number] #### [facility] ([facility]) [address] [place] [address] MCH (RBC) [Entitic mass] 34.9 pg High 27.0-33.0 [facility] Comment on above: Performed By: #### L [id number] #### [facility] ([facility]) [address] [place] [address] MCV (RBC) [Entitic vol] 103.3 fL High 82.0-98.0 [facility] Comment on above: Performed By: #### L [id number] #### [facility] ([facility]) [address] [place] [address] PLATELETS (10*3/UL) IN BLOOD AUTOMATED COUNT 149 10*3/uL Low 150-400 [facility] Comment on above: Performed By: #### L [id number] #### [facility] ([facility]) [address] [place] [address] RBC (Bld) [#/Vol] 4.78 10*6/uL Normal 4.20-5.70 [facility] Comment on above: Performed By: #### L [id number] #### [facility] ([facility]) [address] [place] [address] WBC (Bld) [#/Vol] 6.46 10*3/uL Normal 4.00-10.60 [facility] Comment on above: Performed By: #### L [id number] #### [facility] ([facility]) [address] [place] [address] HEMOGLOBIN A1Con 10-05-2023 Glucose [Mass/Vol] 183 mg/dL Normal [facility] Comment on above: Performed By: #### L [id number] #### [facility] ([facility]) [address] [place] [address] HbA1c (Bld) [Mass fraction] 8.0 % High 4.0-6.0 [facility] Comment on above: Performed By: #### L [id number] #### [facility] ([facility]) [address] [place] [address] POCT GLUCOSE METER UNSOLICIT ED RESULTSon 10-05-2023 Glucose [Mass/Vol] 229 mg/dL High 70-105 [facility] Comment on above: Order Comment: Waive d Testing in the ED is performed under the ED CLIA certificate #[id number]. Result Comment: [email or web address] Performed By: #### L [id number] ####[facility] ([facility])[address] [facility] [place] [address] Covid-19 PCR ([facility])on 07-09 SARS-CoV-2 (COVID-19) RNA NIXON+probe Ql (Unsp spec) Detected Critically abnormal NOT DETECTED [facility] Comment on above: Result Comment: This test is not yet approved or cleared by the [place] FDA. When there are no FDA-approved or cleared tests available, and other criteria are met, FDA can make tests available under an emergency access mechanism called an Emergency Use Authorization (EUA). The EUA for this test is supported by the Cover Stitch Machine Operator of Health and Human Service's (HHS's) declaration [...] used). Performed By: #### A 1C #### [facility] [address] [place] [address] Dr. Bridger Aggarwal INFLUENZA A AND B AGon 08-03 [facility] SEE BELOW Normal [facility] Comment on above: Result Comment: Nega tive for Flu A protein angiten. Infection due to Flu A cannot be ruled out. Flu A angiten in the sample may be below the detection limit of the test. Performed By: #### I NFLUAB #### [facility] [address] [place] [address] Dr. Bridger Agg[facility] SEE BELOW Normal [facility] Comment on above: Result Comment: Nega tive for Flu B protein antigen. Infection due to Flu B cannot be ruled out. Flu B antigen in the sample may be below the detection limit of the test. Performed By: #### I NFLUAB #### [facility] [address] [place] [address] Dr. Bridger Aggarwal INFLUENZA A AG Negative Normal NEGATIVE SEE COMMENT [facility] Comment on above: Performed By: #### I NFLUAB #### [facility] [address] [place] [address] Dr. Bridger Aggarwal INFLUENZA B AG Negative Normal NEGATIVE SEE COMMENT [facility] Comment on above: Performed By: #### I NFLUAB #### [facility] [address] [place] [address] Dr. Bridger Aggarwal INTERNAL CONTROLS Within Normal Limits Normal Wi thin Normal Limits The [facility] Comment on above: Performed By: #### I NFLUAB #### [facility] [address] [place] [address] Dr. Bridger Aggarwal CULTURE WOUNDon 04-23-2022 CULTURE [...] F Oxacillin <=0.25 S F Normal [facility] Comment on above: Performed By: #### A 1C #### [facility] [address] [place] [address] Dr. Bridger Aggarwal Covid-19 PCR (CVD[facility])on 03-09 SARS-CoV-2 (COVID-19) RNA NIXON+probe Ql (Unsp spec) Not detected Normal NOT DETECTED [facility] Comment on above: Result Comment: This test is not yet approved or cleared by the [place] FDA. When there are no FDA-approved or cleared tests available, and other criteria are met, FDA can make tests available under an emergency access mechanism called an Emergency Use Authorization (EUA). The EUA for this test is supported by the Cover Stitch Machine Operator of Health and Human Service's (HHS's) declaration [...] SARS-CoV-2. Performed By: #### A 1C #### [facility] [address] [place] [address] Dr. Bridger Aggarwal Covid-19 PCR ([facility])on SARS-CoV-2 (COVID-19) RNA NIXON+probe Ql (Unsp spec) Not detected Normal NOT DETECTED [facility] Comment on above: Result Comment: When [...] for this test is supported by the Cover Stitch Machine Operator of Health and Human Service's declaration that [...] used). Performed By: #### A 1C #### [facility] [address] [place] [address] Dr. Bridger Aggarwal T4 LABCORPon 01-01-2022 T4 [Mass/Vol] 4.7 ug/dL Normal 4.5-12.0 [facility] Comment on above: Performed By: #### A 1C #### [facility] [address] [place] [address] Dr. Bridger Aggarwal FREE THYROXINE INDEX T7on FTI 1.69 Normal 1.30-4.50 [facility] Comment on above: Performed By: #### A 1C #### [facility] [address] [place] [address] Dr. Bridger Aggarwal T3U 36.0 % Normal 33.0-40.0 [facility] Comment on above: Performed By: #### A 1C #### [facility] [address] [place] [address] Dr. Bridger Aggarwal T4 [Mass/Vol] 4.70 ug/dL Normal 4.50-12.[address] [facility] Comment on above: Performed By: #### A 1C #### [facility] [address] [place] [address] Dr. Bridger Aggarwal TSHon 12-28-2021 TSH 0.969 uIU/mL Normal 0.358-3.[address] [facility] Comment on above: Performed By: #### A 1C #### [facility] [address] [place] [address] Dr. Bridger Aggarwal TSH RANGE SEE BELOW Normal [facility] Comment on above: Result Comment: <0.3 4 UIU/ml HYPERTHYROID 0.34-5.60 UIU/ml EUTHYROID >5.60 UIU/ml HYPOTHYROID Performed By: #### A 1C #### [facility] [address] [place] [address] Dr. Bridger Aggarwal CBC AUTO DIFFon 12-26-2021 BASO # 0.0 103/ul Normal 0.0-0.1 [facility] Comment on above: Performed By: #### C BC #### [facility] [address] [place] [address] Dr. Bridger Aggarwal Basophils/100 WBC (Bld) 0.4 % Normal 0.2-2.0 [facility] Comment on above: Performed By: #### C BC #### [facility] [address] [place] [address] Dr. Bridger Aggarwla EO # 0.1 103/ul Normal 0.0-0.[address] [facility] Comment on above: Performed By: #### C BC #### [facility] [address] [place] [address] Dr. Bridger Aggarwal Eosinophils/100 WBC (Bld) 0.6 % Critically low 0.9-7.0 [facility] Comment on above: Performed By: #### C BC #### [facility] [address] [place] [address] Dr. Bridger Aggarwal Erythrocyte distribution width (RBC) [Ratio] 12.0 % Normal 11.0-15.0 [facility] Comment on above: Performed By: #### C BC #### [facility] [address] [place] [address] Dr. Bridger Aggarwal Hematocrit (Bld) [Volume fraction] 44.9 % Normal 42.0-54.0 [facility] Comment on above: Performed By: #### C BC #### [facility] [address] [place] [address] Dr. Bridger Aggarwal Hemoglobin (Bld) [Mass/Vol] 15.4 g/dL Normal 14.0-18.0 [facility] Comment on above: Performed By: #### C BC #### [facility] [address] [place] [address] Dr. Bridger Aggarwal IG # 0.03 10e3/ul Normal 0.00-0.03 [facility] Comment on above: Performed By: #### C BC #### [facility] [address] [place] [address] Dr. Bridger Aggarwal IG % 0.3 % Normal 0.0-0.[address] [facility] Comment on above: Performed By: #### C BC #### [facility] [address] [place] [address] Dr. Bridger Aggarwal LYMPH # 1.5 103/ul Normal 1.2-3.[address] [facility] Comment on above: Performed By: #### C BC #### [facility] [address] [place] [address] Dr. Bridger Aggarwal Lymphocytes/100 WBC (Bld) 14.2 % Critically low 20.5-60.0 [facility] Comment on above: Performed By: #### C BC #### [facility] [address] [place] [address] Dr. Bridger Aggarwal MANUAL DIFF REQ NO Normal [facility] Comment on above: Performed By: #### C BC #### [facility] [address] [place] [address] Dr. Bridger Aggarwal MCH (RBC) [Entitic mass] 34.2 pg Critically high 25.9-34.0 [facility] Comment on above: Performed By: #### C BC #### [facility] [address] [place] [address] Dr. Bridger Aggarwal MCHC (RBC) [Mass/Vol] 34.3 g/dL Normal 29.9-35.2 [facility] Comment on above: Performed By: #### C BC #### [facility] [address] [place] [address] Dr. Bridger Aggarwal MCV (RBC) [Entitic vol] 99.8 fL Critically high 80.0-94.0 [facility] Comment on above: Performed By: #### C BC #### [facility] [address] [place] [address] Dr. Bridger Aggarwal MONO # 0.7 103/ul Normal 0.3-0.8 [facility] Comment on above: Performed By: #### C BC #### [facility] [address] [place] [address] Dr. Bridger Aggarwal Monocytes/100 WBC (Bld) 6.3 % Normal 1.7-12.[address] [facility] Comment on above: Performed By: #### C BC #### [facility] [address] [place] [address] Dr. Bridger Aggarwal NEUT # 8.2 103/ul Critically high 1.4-6.5 [facility] Comment on above: Performed By: #### C BC #### [facility] [address] [place] [address] Dr. Bridger Aggarwal Neutrophils/100 WBC (Bld) 78.2 % Critically high 43.0-75.0 [facility] Comment on above: Performed By: #### C BC #### [facility] [address] [place] [address] Dr. Bridger Aggarwal Platelet mean volume (Bld) [Entitic vol] 9.6 fL Normal 9.5-13.5 [facility] Comment on above: Performed By: #### C BC #### [facility] [address] [place] [address] Dr. Bridger Aggarwal PLT 247 103/ul Normal 150-450 [facility] Comment on above: Performed By: #### C BC #### [facility] [address] [address] [address] Bridger Aggarwal RBC 4.50 106/ul Critically low 4.70-6.10 [facility] Comment on above: Performed By: #### C BC #### [facility] [address] [place] [address] Dr. Bridger Aggarwal WBC 10.5 103/ul Normal 4.0-11.0 [facility] Comment on above: Performed By: #### C BC #### [facility] [address] [place] [address] HEAD WO CONon [...] JACOB LALA Date: 2021-12-26 13:30 Normal [facility] PROF CHEM 8 (BAS METB)on Anion gap [Moles/Vol] 17.1 mmol/L Normal [facility] Comment on above: Performed By: #### A 1C #### [facility] [address] [place] [address] Dr. Bridger Aggarwal Calcium [Mass/Vol] 9.4 mg/dL Normal 8.5-10.1 [facility] Comment on above: Performed By: #### A 1C #### [facility] [address] [place] [address] Dr. Bridger Aggarwal Chloride [Moles/Vol] 97 mmol/L Critically low 98-107 [facility] Comment on above: Performed By: #### A 1C #### [facility] [address] [place] [address] Dr. Bridger Aggarwal CO2 [Moles/Vol] 20.6 mmol/L Critically low 21.0-32.0 [facility] Comment on above: Performed By: #### A 1C #### [facility] [address] [place] [address] Dr. Bridger Aggarwal Creatinine [Mass/Vol] 0.96 mg/dL Normal 0.70-1.30 [facility] Comment on above: Performed By: #### A 1C #### [facility] [address] [place] [address] Dr. Bridger Aggarwal EGFR-AF TURKISH >60 Normal >=60 [facility] Comment on above: Performed By: #### A 1C #### [facility] [address] [place] [address] Dr. Bridger Aggarwal EGFR-NON AF TURKISH >60 Normal >=60 [facility] Comment on above: Performed By: #### A 1C #### [facility] [address] [place] [address] Dr. Bridger Aggarwal Glucose [Mass/Vol] 216 mg/dL Critically high 74-106 [facility] Comment on above: Performed By: #### A 1C #### [facility] [address] [place] [address] Dr. Bridger Aggarwal Potassium [Moles/Vol] 3.7 mmol/L Normal 3.5-5.1 [facility] Comment on above: Performed By: #### A 1C #### [facility] [address] [place] [address] Dr. Bridger Aggarwal Sodium [Moles/Vol] 131 mmol/L Critically low 136-[address] [facility] Comment on above: Performed By: #### A 1C #### [facility] [address] [place] [address] Dr. Bridger Aggarwal Urea nitrogen [Mass/Vol] 26.0 mg/dL Critically high 7.0-18.0 [facility] Comment on above: Performed By: #### A 1C #### [facility] [address] [place] [address] Dr. Bridger Aggarwal Urea nitrogen/Creatinine [Mass ratio] 27.1 mg/mg Normal [facility] Comment on above: Performed By: #### A 1C #### [facility] [address] [place] [address] Dr. Bridger Aggarwal CBC AUTO DIFFon 12-18-2021 BASO # 0.0 103/ul Normal 0.0-0.1 [facility] Comment on above: Performed By: #### A 1C #### [facility] [address] [place] [address] Dr. Bridger Aggarwal Basophils/100 WBC (Bld) 0.4 % Normal 0.2-2.0 [facility] Comment on above: Performed By: #### A 1C #### [facility] [address] [place] [address] Dr. Bridger Aggarwal EO # 0.1 103/ul Normal 0.0-0.7 [facility] Comment on above: Performed By: #### A 1C #### [facility] [address] [place] [address] Dr. Bridger Aggarwal Eosinophils/100 WBC (Bld) 1.2 % Normal 0.9-7.0 [facility] Comment on above: Performed By: #### A 1C #### [facility] [address] [place] [address] Dr. Bridger Aggarwal Erythrocyte distribution width (RBC) [Ratio] 12.5 % Normal 11.0-15.0 [facility] Comment on above: Performed By: #### A 1C #### [facility] [address] [place] [address] Dr. Bridger Aggarwal Hematocrit (Bld) [Volume fraction] 45.9 % Normal 42.0-54.0 [facility] Comment on above: Performed By: #### A 1C #### [facility] [address] [place] [address] Dr. Bridger Aggarwal Hemoglobin (Bld) [Mass/Vol] 15.8 g/dL Normal 14.0-18.0 [facility] Comment on above: Performed By: #### A 1C #### [facility] [address] [place] [address] Dr. Bridger Aggarwal IG # 0.04 10e3/ul Critically high 0.00-0.03 [facility] Comment on above: Performed By: #### A 1C #### [facility] [address] [place] [address] Dr. Bridger Aggarwal IG % 0.5 % Normal 0.0-0.5 [facility] Comment on above: Performed By: #### A 1C #### [facility] [address] [place] [address] Dr. Bridger Aggarwal LYMPH # 1.7 103/ul Normal 1.2-3.8 [facility] Comment on above: Performed By: #### A 1C #### [facility] [address] [place] [address] Dr. Bridger Aggarwal Lymphocytes/100 WBC (Bld) 22.3 % Normal 20.5-60.0 [facility] Comment on above: Performed By: #### A 1C #### [facility] [address] [place] [address] Dr. Bridger Aggarwal MANUAL DIFF REQ NO Normal [facility] Comment on above: Performed By: #### A 1C #### [facility] [address] [place] [address] Dr. Bridger Aggarwal MCH (RBC) [Entitic mass] 34.3 pg Critically high 25.9-34.[address] [facility] Comment on above: Performed By: #### A 1C #### [facility] [address] [place] [address] Dr. Bridger Aggarwal MCHC (RBC) [Mass/Vol] 34.4 g/dL Normal 29.9-35.[address] [facility] Comment on above: Performed By: #### A 1C #### [facility] [address] [place] [address] Dr. Bridger Aggarwal MCV (RBC) [Entitic vol] 99.6 fL Critically high 80.0-94.0 [facility] Comment on above: Performed By: #### A 1C #### [facility] [address] [place] [address] Dr. Bridger Aggarwal MONO # 0.7 103/ul Normal 0.3-0.[address] [facility] Comment on above: Performed By: #### A 1C #### [facility] [address] [place] [address] Dr. Bridger Aggarwal Monocytes/100 WBC (Bld) 8.6 % Normal 1.7-12.0 [facility] Comment on above: Performed By: #### A 1C #### [facility] [address] [place] [address] Dr. Bridger Aggarwal NEUT # 5.2 103/ul Normal 1.4-6.[address] [facility] Comment on above: Performed By: #### A 1C #### [facility] [address] [place] [address] Dr. Bridger Aggarwal Neutrophils/100 WBC (Bld) 67.0 % Normal 43.0-75.[address] [facility] Comment on above: Performed By: #### A 1C #### [facility] [address] [place] [address] Dr. Bridger Aggarwal Platelet mean volume (Bld) [Entitic vol] 9.4 fL Critically low 9.5-13.[address] [facility] Comment on above: Performed By: #### A 1C #### [facility] [address] [address] [address] Bridger Aggarwal PLT 259 103/ul Normal 150-[address] [facility] Comment on above: Performed By: #### A 1C #### [facility] [address] [address] [address] Bridger Aggarwal RBC 4.61 106/ul Critically low 4.70-6.10 [facility] Comment on above: Performed By: #### A 1C #### [facility] [address] [address] [address] Bridger Aggarwal WBC 7.8 103/ul Normal 4.0-11.0 [facility] Comment on above: Performed By: #### A 1C #### [facility] [address] [place] [address] Dr. Bridger Aggarwal FREE T3on 12-18-2021 FREE T3 2.71 pg/mlL Normal 2.18-3.98 [facility] Comment on above: Performed By: #### C MP, T4, FT3, TSH, LIPID #### [facility] [address] [address] [address] Bridger Aggarwal GLYCOHEMOGLOBIN A1Con 2021 ADA RECOMMENDATION SEE BELOW Normal [facility] Comment on above: Result Comment: ADA RECOMMENDED LIMIT 4.0 - 6.0 ADA THERAPEUTIC TARGET < 7.0 ACTION SUGGESTED > 7.0 Performed By: #### A 1C #### [facility] [address] [address] [address] Bridger Aggarwal Glucose [Mass/Vol] 197 mg/dL Normal [facility] [facility] Comment on above: Performed By: #### A 1C #### [facility] [address] [address] [address] Bridger Aggarwal HbA1c (Bld) [Mass fraction] 8.5 % Critically high 4.5-6.2 [facility] Comment on above: Performed By: #### A 1C #### [facility] [address] [place] [address] Dr. Bridger Aggarwal LIPID PROFILEon 12-18-2021 CHOL-HDL RATIO NORM SEE BELOW Normal [facility] Comment on above: Result Comment: 3.3 - 4.4 LOW RISK 4.4 - 7.1 AVERAGE RISK 7.1 - 11.0 MODERATE RISK >11.0 HIGH RISK Performed By: #### C MP, T4, FT3, TSH, LIPID #### [facility] [address] [address] [address] Bridger Aggarwal Cholesterol [Mass/Vol] 157 mg/dL Normal <=200 [facility] Comment on above: Performed By: #### C MP, T4, FT3, TSH, LIPID #### [facility] [address] [address] [address] Bridger Aggarwal Cholesterol in HDL [Mass/Vol] 46 mg/dL Normal 40-60 [facility] Comment on above: Performed By: #### C MP, T4, FT3, TSH, LIPID #### [facility] [address] [place] [address] Dr. Bridger Aggarwal Cholesterol in LDL [Mass/Vol] 85.8 mg/dL Normal [facility] Comment on above: Performed By: #### C MP, T4, FT3, TSH, LIPID #### [facility] [address] [address] [address] Bridger Aggarwal Cholesterol.total/C holesterol in HDL [Mass ratio] 3.4 {ratio} Normal [facility] Comment on above: Performed By: #### C MP, T4, FT3, TSH, LIPID #### [facility] [address] [place] [address] Dr. Bridger Aggarwal HDL NORMAL > or = 60 mg/dl - LO W CARDIOVASCULAR RISK <40 mg/dl - HIGH CARDIOVASCULAR RISK Normal [facility] Comment on above: Performed By: #### C MP, T4, FT3, TSH, LIPID #### [facility] [address] [place] [address] Dr. Bridger Aggarwal LDL CALC NORMAL SEE BELOW Normal [facility] Comment on above: Result Comment: <100 mg/dl OPTIMAL 100 - 129 mg/dl NEAR OR ABOVE OPTIMAL 130 - 159 mg/dl BORDERLINE HIGH 160 - 189 mg/dl HIGH >190 mg/dl VERY HIGH Performed By: #### C MP, T4, FT3, TSH, LIPID #### [facility] [address] [address] [address] Bridger Aggarwal Triglyceride [Mass/Vol] 126 mg/dL Normal <=150 [facility] Comment on above: Performed By: #### C MP, T4, FT3, TSH, LIPID #### [facility] [address] [address] [address] Bridger Aggarwal VLDL CALC 25.2 mg/dL Normal [facility] Comment on above: Performed By: #### C MP, T4, FT3, TSH, LIPID #### [facility] [address] [place] [address] Dr. Bridger Aggarwal OCC BLD IMMUNO SCREENon 12-06 OCCULT BLOOD Negative Normal NEGATIVE [facility] Comment on above: Performed By: #### O BSCRN #### [facility] [address] [place] [address] Dr. Bridger Aggarwal PROF 14(COMP METB)on 022 Albumin [Mass/Vol] 3.6 g/dL Normal 3.4-5.0 [facility] Comment on above: Performed By: #### C MP, T4, FT3, TSH, LIPID #### [facility] [address] [place] [address] Dr. Bridger Aggarwal Albumin/Globulin [Mass ratio] 0.9 {ratio} Normal [facility] Comment on above: Performed By: #### C MP, T4, FT3, TSH, LIPID #### [facility] [address] [place] [address] Dr. Bridger Aggarwal ALP [Catalytic activity/Vol] 84 U/L Normal 46-116 [facility] Comment on above: Performed By: #### C MP, T4, FT3, TSH, LIPID #### [facility] [address] [place] [address] Dr. Bridger Aggarwal ALT [Catalytic activity/Vol] 45 U/L Normal 16-63 [facility] Comment on above: Performed By: #### C MP, T4, FT3, TSH, LIPID #### [facility] [address] [place] [address] Dr. Bridger Aggarwal Anion gap [Moles/Vol] 12.1 mmol/L Normal [facility] Comment on above: Performed By: #### C MP, T4, FT3, TSH, LIPID #### [facility] [address] [place] [address] Dr. Bridger Aggarwal AST [Catalytic activity/Vol] 20 U/L Normal 15-37 [facility] Comment on above: Performed By: #### C MP, T4, FT3, TSH, LIPID #### [facility] [address] [place] [address] Dr. Bridger Aggarwal Bilirubin [Mass/Vol] 0.6 mg/dL Normal 0.2-1.0 [facility] Comment on above: Performed By: #### C MP, T4, FT3, TSH, LIPID #### [facility] [address] [place] [address] Dr. Bridger Aggarwal Calcium [Mass/Vol] 9.1 mg/dL Normal 8.5-10.1 [facility] Comment on above: Performed By: #### C MP, T4, FT3, TSH, LIPID #### [facility] [address] [place] [address] Dr. Bridger Aggarwal Chloride [Moles/Vol] 100 mmol/L Normal 98-[address] [facility] Comment on above: Performed By: #### C MP, T4, FT3, TSH, LIPID #### [facility] [address] [place] [address] Dr. Bridger Aggarwal CO2 [Moles/Vol] 28.4 mmol/L Normal 21.0-32.0 [facility] Comment on above: Performed By: #### C MP, T4, FT3, TSH, LIPID #### [facility] [address] [place] [address] Dr. Bridger Aggarwal Creatinine [Mass/Vol] 0.99 mg/dL Normal 0.70-1.30 [facility] Comment on above: Performed By: #### C MP, T4, FT3, TSH, LIPID #### [facility] [address] [place] [address] Dr. Bridger Aggarwal EGFR-AF TURKISH >60 Normal >=60 [facility] Comment on above: Performed By: #### C MP, T4, FT3, TSH, LIPID #### [facility] [address] [place] [address] Dr. Bridger Aggarwal EGFR-NON AF TURKISH >60 Normal >=60 [facility] Comment on above: Performed By: #### C MP, T4, FT3, TSH, LIPID #### [facility] [address] [address] [address] Bridger Aggarwal Globulin (S) [Mass/Vol] 3.8 g/dL Normal [facility] Comment on above: Performed By: #### C MP, T4, FT3, TSH, LIPID #### [facility] [address] [place] [address] Dr. Bridger Aggarwal Glucose [Mass/Vol] 260 mg/dL Critically high 74-106 [facility] Comment on above: Performed By: #### C MP, T4, FT3, TSH, LIPID #### [facility] [address] [place] [address] Dr. Bridger Aggarwal Potassium [Moles/Vol] 4.5 mmol/L Normal 3.5-5.1 [facility] Comment on above: Performed By: #### C MP, T4, FT3, TSH, LIPID #### [facility] [address] [place] [address] Dr. Bridger Aggarwal Protein [Mass/Vol] 7.4 g/dL Normal 6.4-8.2 [facility] Comment on above: Performed By: #### C MP, T4, FT3, TSH, LIPID #### [facility] [address] [place] [address] Dr. Bridger Aggarwal Sodium [Moles/Vol] 136 mmol/L Normal 136-145 [facility] Comment on above: Performed By: #### C MP, T4, FT3, TSH, LIPID #### [facility] [address] [place] [address] Dr. Bridger Aggarwal Urea nitrogen [Mass/Vol] 17.0 mg/dL Normal 7.0-18.0 [facility] Comment on above: Performed By: #### C MP, T4, FT3, TSH, LIPID #### [facility] [address] [address] [address] Bridger Aggarwal Urea nitrogen/Creatinine [Mass ratio] 17.2 mg/mg Normal [facility] Comment on above: Performed By: #### C MP, T4, FT3, TSH, LIPID #### [facility] [address] [place] [address] Dr. Bridger Aggarwal T4on 12-18-2021 T4 [Mass/Vol] 4.80 ug/dL Normal 4.50-12.10 [facility] Comment on above: Performed By: #### C MP, T4, FT3, TSH, LIPID #### [facility] [address] [place] [address] Dr. Bridger Aggarwal TSHon 12-18-2021 TSH 1.496 uIU/mL Normal 0.358-3.740 [facility] Comment on above: Performed By: #### C MP, T4, FT3, TSH, LIPID #### [facility] [address] [place] [address] Dr. Bridger Aggarwal TSH RANGE SEE BELOW Normal [facility] Comment on above: Result Comment: <0.3 4 UIU/ml HYPERTHYROID 0.34-5.60 UIU/ml EUTHYROID >5.60 UIU/ml HYPOTHYROID Performed By: #### C MP, T4, FT3, TSH, LIPID #### [facility] [address] [place] [address] Dr. Bridger Aggarwal Encounters Encounter Date Encounter Type Care Provider Facility Start: 12-05-2023 End: 12-05-2023 ambulatory AB [facility] Start: 10-13-2023 End: 10-13-[facility] Start: 10-06-2023 Evaluation and management of inpatient DESTINEE COSTA [facility] Start: 10-05-2023 End: 10-09-2023 Evaluation and management of inpatient ADARSH HALL [facility] Start: 08-10-2022 End: 08-10-[address] [...] without abnormal findings DR ADARSH HALL [facility] Start: 12-18-2021 End: 12-19-[address] ADARSH HALL Facility:[facility] Start: 12-18-2021 End: 12-19-2021 Encounter for general adult medical examination without abnormal findings DR ADARSH HALL Facility:[facility] Procedures Date Procedure Procedure Detail Performing Clinician Start: 12-18-[address] GREG HALL Comment on above: Performed By: #### P [facility] #### [facility] [address] [place] [address] Dr. Bridger Aggarwal Payers Date Payer Category Payer Unknown [id number] .. [id number] 1975 Unknown [id number] 2..84 [id number] 1973 Unknown [id number] 2..84 [id number] 1973 Unknown [id number] 2.16.84 [id number] 1973 Unknown [id number] 2..84 [id number] 1973 Unknown [id number] 2.16.84 [id number] 1973 Unknown [id number] 2.16.84 [id number] 1973 Unknown [id number] 2.16.84 [id number] 1961 Private Health Insurance [id number] 1961 Unknown [id number] Clinical Notes 10-05-2023 to 12-05-2023 Note Date [...] disease- nonobstructive with sluggish coronary flow on [facility] 10/07/23 Hypertension Type 2 DM [...] obesity, LARS, tobacco dependence intially presents to [facility] after sudden onset SOB. He woke up [...] 37.66 kg/m??? P (more content not included)... [facility] 10-13-2023 Note Cardiovascular Medic [facility] SUBJECTIVE Chief Complaint Patient presents with [...] disease- nonobstructive with sluggish coronary flow on [facility] 10/07/23 Hypertension Type 2 DM [...] obesity, LARS, tobacco dependence intially presents to [facility] after sudden onset SOB. He woke up [...] Heart failure (CMS/HCC) Coronary artery disease involving [place] coronary artery of [place] heart without angina pectoris Benign hypertensive heart [...] at bedtime., Disp: (more content not included)... [facility] 10-13-2023 Note Patient here for [facility] for new onset CHF. He underwent heart cath on 10/07/[address] Herrera. Was discharged with a LifeVest. He has completely stopped smoking and drinking alcohol. Denies chest pain, SOB, palpitations, and lightheadedness/syncope. Review of Systems All other systems reviewed and are negative. [facility] 10-09-2023 Note Patient discharged v ia private ride with . Patient educated on discharge and educated on heart failure education. All questions and concerns addressed at this time. [facility] 10-09-2023 Note 10/09/23 1403 CM Interventions CM Interventions Other (Comment) Follow up appointment for GI Clinic was scheduled for patient for tomorrow, however, per Epic chart, patient has already cancelled. Dr Costa notified [facility] 10-09-2023 Note Awaiting life vest a pproval and fitting. OTM will continue to follow. 1200: Life Vest approved. Awaiting RN for fitting. [facility] 10-09-2023 Note Hospital Medicine Discharge Summary Final Discharge Diagnosis: New onset heart failure with reduced EF, 20-25%, NYHA I, with global hypokinesis NICMP Coronary artery disease- nonobstructive with sluggish coronary flow on [facility] 10/07/23 Hypertension Type 2 DM [...] obesity, LARS, tobacco dependence intially presents to [facility] after sudden onset SOB. He woke up [...] was discharged home. Dear Dr. Rafael MD [place] is advised to follow up with you [...] Medications These medications were sent to [facility] - [place], [place] - [address] [place] [address], [facility] [address] aspirin 81 mg chewable tablet atorvastatin 80 [...] (!) 129/100, pulse (more content not included)... [facility] 10-08-2023 Note cash office worker lalito valentin by Dakota, at [facility], on behalf of patient. Facesheet & cardiology progress note faxed to [facility] to initiate life ves referral. Awaiting approval / denial and next steps before patient can discharge. UPDATE: [employer] reached out to Dakota who reports he is still waiting for insurance approval for life vest. This information was shared with physician, bedside nurse, and criminal justice social worker. Dakota reports if he is approved today, he will attempt to get patient fitted for his life vest today as well. OTM team continuing to follow. [facility] 10-08-2023 Note Hospital Medicine Discharge Summary Final Discharge Diagnosis: New onset heart failure with reduced EF, 20-25%, NYHA I, with global hypokinesis NICMP Coronary artery disease- nonobstructive with sluggish coronary flow on [facility] 10/07/23 Hypertension Type 2 DM with A1C 8% Dyslipidemia Alcohol abuse Tobacco dependence Circumferential esophageal thickening-Outpatient GI Fup for concern of EGD, has hx of reflux, Cont PPI therapy Bilateral groundglass opacities and hilar lymphadenopathy. Be infectious versus inflammatory. Flu PCR and COVID-negative. Admission Diagnosis: Heart failure (CMS/[facility]) [I50.9] Hospital course: Tera Roberto is a 48 y.o. male with a PMH significant for T2DM, HTN, obesity, LARS, tobacco dependence intially presents to [facility] after sudden onset SOB. He woke up [...] Medications These medications were sent to [facility] - [place], [place] - [facility] [address], [facility] [address] aspirin 81 mg chewable tablet atorvastatin 80 [...] time of di (more content not included)... [facility] 10-08-2023 Note UTP CARDIOLOGY PROGR ESS [...] lock IV AND sodium chloride CV Testing: [facility] 10/07/23: FINAL IMPRESSIONS: Angiographically nonobstructive [...] a beta-nabila, a (more content not included)... [facility] 10-08-2023 Note Hospital Medicine Daily Progress Note - 10/09/2023 7:16 AM; Room: [address] [place] [address] Admission: 10/05/2023 7:45 PM; Length of stay: 4 days THE HOSPITALIST TEAM PREFERS TO USE [employer] CHAT FOR COMMUNICATION 7AM-7PM. IF I DO NOT RESPOND WITHIN 15 MINUTES, PLEASE PAGE ME/CALL THROUGH THE PAYMENT SPECIALIST. FROM 7PM-7AM, PLEASE PAGE [phone](COVR) Code Status: Full Code Barriers to Discharge: [...] Active Inpatient Problems Principal Problem: Heart failure ([facility]) Assessment and Plan Acute hypoxemic resp failure- [...] Academy of Nutrition and Dietetics and the [place] [employer] of Enteral and Parenteral Nutrition, meets [...] LDL 178 10/06/2023 No results found for: [id number] , IRON , TIBC , C3 , [...] beta-nabila, a RAA (more content not included)... [facility] 10-07-2023 Note Clinical Therapist [facility] Intervention Note Substance Intervention: Raise the Subject: [...] brief intervention. Assessment completed by: DELMA Morgan [facility] 10-07-2023 Note Cardiovascular Labor atory Report [...] internal jugular vein was obtained. A 6 Slovak 11 cm sheath was inserted without difficulty. [...] left radial artery was obtained. A 6 Slovak glide sheath was inserted without difficulty. Bilateral [...] fraction, exertional shortness of breath, abnormal echocardiogram [facility] 10-07-2023 Note ---- Attestation signed by [...] QT Interval 404 QTC CALCULATION(BAZETT) 488 P [place] 50 R-Houston 0 T Wave [place] 61 Impression Sinus rhythm with occasional Premature ventricular complexes Left ventricular hypertrophy ( R in aVL ) Prolonged QT Abnormal ECG No previous ECGs available Confirmed by Daily MENDEZ, L.S. (2) on 10/06/2023 11:01:33 AM Lab Results Component Value Date TROPONINI 0.03 10/06/2023 Transthoracic echo (TTE) limited Result Date: 10/06/2023 1 1 [facility] [address] [place], [place] [phone] (fax) Echocardiogram-[facility] Name: TERA ROBERTO Study Date: 10/06/2023 10:25 AM B/P: 153 mmHg/104 mmHg HR: 96 bpm Date of : 1975 Location: [facility] Height: 69 in. Age: 48 [...] No pericardial effusion. Procedure Staff Reading Group: [facility] Referring Physician: Keith Edwards Pelota Maker: Zina Altamirano [facility] Ordering Physician: DESTINEE COSTA No nuclear medicine results found for the past 12 months Relevant Imaging Results Transthoracic echo (TTE) limited 1 1 [facility] [address] [place] [address] [phone] (fax) Echocardiogram-[facility] Name: TERA ROBERTO Study Date: 10/06/2023 10:25 AM B/P: (more content not included)... [facility] 10-07-2023 Note Clinician attempted to provide AOD brief intervention. Physician at bedside with pt. Clinician will make another attempt [facility] 10-07-2023 Note Hospital Medicine Daily Progress Note - 10/07/2023 9:30 AM; Room: [address] [place] [address] Admission: 10/05/2023 7:45 PM; Length of stay: 2 days THE HOSPITALIST TEAM PREFERS TO USE [employer] CHAT FOR COMMUNICATION 7AM-7PM. IF I DO NOT RESPOND WITHIN 15 MINUTES, PLEASE PAGE ME/CALL THROUGH THE PAYMENT SPECIALIST. FROM 7PM-7AM, PLEASE PAGE [phone](COVR) Code Status: Full Code Barriers to Discharge: [...] Active Inpatient Problems Principal Problem: Heart failure ([facility]) Assessment and Plan Acute hypoxemic resp failure- [...] Academy of Nutrition and Dietetics and the [place] [employer] of Enteral and Parenteral Nutrition, meets [...] LDL 178 10/06/2023 No results found for: [id number] , IRON , TIBC , C3 , C4 , DANTE , CANCA , ASO , PSA , CEA , CA125 , CA199 , AFP , CA153 Imaging Transthoracic echo (TTE) limited 1 1 [facility] [address] [place] [address] [phone] (fax) Echocardiogram-[facility] Name: TERA ROBERTO Study Date: 10/06/2023 10:25 AM B/P: 153 mmHg/104 mmHg HR: 96 bpm Date of : 1975 Location: [facility] Height: 69 in. Age: 48 year(s) Patient Room: [facility] Weight: 255 lb. Gender: Male Patient [...] is estimated at (more content not included)... [facility] 10-06-2023 Note Patient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
== END 2024-10-04 10:14 | disposition home or self-care (01) ==
LOC: RAD 10:15
PROVIDERS: PCP Family Medicine; Visit Provider Family Medicine
DX: J20.9 Acute bronchitis, unspecified (principal); J90 Pleural effusion, not elsewhere classified; S22.42XD Multiple fractures of ribs, left side, subsequent encounter for fracture with routine healing
CPT/HCPCS: 71046; 71100

== ENCOUNTER 2024-10-05 09:48 | Outpatient (OUT) | payer OTHER, SELFPAY ==
--- NOTE | 2024-10-05 09:57 | CT_ITS ---
The [address] [address] Patient Name: TERA ROBERTO MRN: [id number] date: 1975 Sex: M Assigned Patient Location: CT Current Patient Location: CT Accession/Order Number: [id number] Exam Date: 10/05/2024 13:13 Report Date: 10/05/2024 13:27 At the request of: ADARSH HORTON MD Procedure: CT chest wo con CT CHEST WITHOUT CONTRAST CLINICAL DATA: Cough and left rib pain. History of left rib fractures 3 weeks ago. COMPARISON: Chest x-ray 10/04/2024 Spiral images were obtained through the chest without contrast. Images were reviewed using both narrow and wide window settings. This CT exam was performed using one or more following dose reduction techniques: Automated exposure control, adjustment of the mA and/or kV according to patient size, or use of iterative reconstruction technique. The heart is within normal limits for size. There is a trace amount of pericardial fluid. Coronary disease is seen. There is no aortic aneurysm. There are no enlarged nodes. There are mildly displaced fractures involving the lateral aspect of the fifth through seventh ribs. There is a nondisplaced fracture at the lateral eighth rib. There is also subtle deformity at the lateral aspect of the third and fourth ribs on that side which might be posttraumatic. No significant callus formation is present. There is mild endplate spurring at the spine. There is hypertrophy at the costo vertebral junction at T7 on the left. A small layering left pleural effusion is present. There is adjacent consolidation within the left lower lobe. There is also atelectasis adjacent to mildly elevated right hemidiaphragm. No pneumothorax is seen. Limited cuts through the upper abdomen show possible mild fatty liver. CT/CT chest wo con IMPRESSION: MULTIPLE ACUTE LEFT LATERAL RIB FRACTURES. LEFT PLEURAL EFFUSION WITH ADJACENT LOWER LOBE CONSOLIDATION. RIGHT BASILAR ATELECTASIS. Impression dictated by: Marialuisa Brizuela M.D.10/05/2024 1:27 PM Dictation Location: [place] [address] Electronically authenticated by: [id number] Y Date: 10/05/2024 13:27
--- OUTSIDE RECORDS SUMMARY | 2024-10-05 10:09 | XMS_ITS | CCD ---
Author Organization [facility] Care Team Providers Care Plumber Apprentice Name Role Phone RAFAEL, DR ALTAMIRANO Admitting [...] disease (2 sources) Atherosclerotic heart disease of [place] coronary artery without angina pectoris; Translations: [Atherosclerotic heart disease of [place] coronary artery without angina pectoris] Onset: 10-13-2023 [...] Range Facility Office Visiton 12-05-2023 Follow-up visit [id number] Tera Roberto 1975 M Date Provider Department Center 12/05/2023 YAKELIN MICHELLE TATE Abreu Family History Problem Relation Age of Onset Heart attack Maternal Grandfather Family Status - Relation Status Age at Maternal Grandfather Level of Service:73759 [place] OFFICE/OUTPATIENT ESTABLISHED MOD MDM 30 MIN Normal [facility] 36on 12-01-2023 36 Patient informed. Normal [facility] 36on 11-29-2023 36 Please let him know his EF improved to 55%. He no longer needs to wear the LifeVest. Follow-up as scheduled. Thanks! Normal [facility] Telephoneon 11-29-2023 Telephone [phone] Tera Roberto 1975 M Date Provider Department Center 11/29/2023 ZACK OLSON Family History Problem Relation Age of Onset Heart attack Maternal Grandfather Family Status - Relation Status Age at Maternal Grandfather Normal [facility] 36on 11-02-2023 36 2nd attempt: LMOM Normal [facility] Follow-Upon 10-13-2023 Follow-Up [id number] Tera Roberto 1975 [facility] Provider Department Center 10/13/2023 166-ZACK MONTGOMERY TATE [facility] Family History Problem Relation Age of Onset Heart attack Maternal Grandfather Family Status - Relation Status Age at Maternal Grandfather Level of Service:10094 [place] OFFICE/OUTPATIENT ESTABLISHED MOD MDM 30 MIN Reason for Visit and Comments: Hospital Follow-up [832] Congestive Heart Failure [127] Hypertension [560871] [facility] 10-11-2023 36 Called patient and left a message to call me to schedule a pulmonary hospital follow up with either Dr. Valenzuela or Dr. Diamond. [facility] 10-10-2023 36 Discharge date: Call date: [...] was very happy with his experience at [facility] and he wanted to thank everyone for saving his life. [facility] Documentationon 10-10-2023 Documentation [id number] CamilleTera 1975 M Date Provider Department Center 10/10/202344197-SZIRSWIROSI [facility] No family history on file Reason for Visit and Comments: HF inpatient satisfaction survey sent. [Other] [facility] Telephoneon 10-10-2023 Telephone [phone] CamilleTera 1975 M Date Provider Department Center 10/10/202360406-NPPTHCCROSI [facility] No family history on file [facility] 3010-09-2023 30 The patient is Moderately [...] and behaviors that affect risk of falls [place] fall precautions as indicated by assessment Problem: [...] the next 3 months Outcome: Progressing Normal [facility] BASIC METABOLIC PANELon 03-0 Anion gap [Moles/Vol] 12 mmol/L Normal 7-20 [facility] Comment on above: Performed By: #### L [id number] ####[facility] (BEAKER)[address] [place] [address] Calcium [Mass/Vol] 8.9 mg/dL Normal 8.6-10.3 [facility] Comment on above: Performed By: #### L [id number] ####[facility] (BEAKER)[address] [place] [address] Chloride [Moles/Vol] 104 mmol/L Normal 98-107 [facility] Comment on above: Performed By: #### L [id number] ####[facility] (BEAKER)[address] [place] [address] CO2 [Moles/Vol] 25 mmol/L Normal 21-[address] [facility] Comment on above: Performed By: #### L [id number] ####[facility] (BEAKER)[address] [place] [address] Creatinine [Mass/Vol] 0.89 mg/dL Normal 0.70-1.30 [facility] Comment on above: Performed By: #### L [id number] ####[facility] ([facility])[address] [place] [address] GLOMERULAR FILTRATION RATE ML/MIN/1.73 SQ M.PREDICTED 104.4 mL/min/1.73m*2 Normal >60.0 [facility] Comment on above: Result Comment: [facility]???s estimated glomerular filtration rate (eGFR) [...] of individuals. Performed By: #### L [id number] ####[facility] ([facility])[address] [place] [address] Glucose [Mass/Vol] 119 mg/dL High 70-100 [facility] Comment on above: Performed By: #### L [id number] ####[facility] ([facility])[address] [place] [address] Potassium [Moles/Vol] 4.1 mmol/L Normal 3.5-5.1 [facility] Comment on above: Performed By: #### L [id number] ####[facility] ([facility])[address] [place] [address] Sodium [Moles/Vol] 137 mmol/L Normal 136-145 [facility] Comment on above: Performed By: #### L [id number] ####[facility] ([facility])[address] [place] [address] Urea nitrogen [Mass/Vol] 29 mg/dL High 7-25 [facility] Comment on above: Performed By: #### L [id number] ####[facility] ([facility])[address] [place] [address] UREA NITROGEN/CREATININE (MASS RATIO) IN SER/PLAS 32.6 Normal [facility] Comment on above: Performed By: #### L [id number] ####[facility] ([facility])[address] [place] [address] CBC WITH AUTO DIFFERENTIALon 10-09-2023 Basophils (Bld) [#/Vol] 0.04 10*3/uL Normal 0.00-0.20 [facility] Comment on above: Performed By: #### L [id number] ####[facility] ([facility])[address] [place] [address] Basophils/100 WBC (Bld) 0.7 % Normal 0.0-1.0 [facility] Comment on above: Performed By: #### L [id number] ####[facility] ([facility])[address] [place] [address] Eosinophils (Bld) [#/Vol] 0.12 10*3/uL Normal 0.00-0.50 [facility] Comment on above: Performed By: #### L [id number] ####[facility] ([facility])[address] [place] [address] Eosinophils/100 WBC (Bld) 2.1 % Normal 0.0-6.0 [facility] Comment on above: Performed By: #### L [id number] ####[facility] ([facility])[address] [place] [address] Erythrocyte distribution width (RBC) [Ratio] 12.0 % Normal 11.5-15.0 [facility] Comment on above: Performed By: #### L [id number] ####[facility] ([facility])[address] [place] [address] ERYTHROCYTE MEAN CORPUSCULAR HEMOGLOBIN CONCENTRATION (G/DL) BY AUTOMATED 34.2 g/dL Normal 32.0-35.0 [facility] Comment on above: Performed By: #### L [id number] ####[facility] (BEAKER)[address] [place] [address] Hematocrit (Bld) [Volume fraction] 47.7 % Normal 39.0-55.0 [facility] Comment on above: Performed By: #### L [id number] ####[facility] (BEAKER)[address] [place] [address] Hemoglobin (Bld) [Mass/Vol] 16.3 g/dL Normal 13.0-17.0 [facility] Comment on above: Performed By: #### L [id number] ####[facility] (BEAKER)[address] [place] [address] Immature granulocytes (Bld) [#/Vol] 0.03 10*3/uL Normal 0.00-0.20 [facility] Comment on above: Performed By: #### L [id number] ####[facility] (BEAKER)[address] [place] [address] Immature granulocytes/100 WBC (Bld) 0.5 % Normal 0.0-1.0 [facility] Comment on above: Performed By: #### L [id number] ####[facility] (BEAKER)[address] [place] [address] Lymphocytes (Bld) [#/Vol] 1.51 10*3/uL Normal 1.20-4.00 [facility] Comment on above: Performed By: #### L [id number] ####[facility] (BEAKER)[address] [place] [address] Lymphocytes/100 WBC (Bld) 26.2 % Normal 20.0-45.0 [facility] Comment on above: Performed By: #### L [id number] ####[facility] (BEAKER)[address] [place] [address] MCH (RBC) [Entitic mass] 35.0 pg High 27.0-33.0 [facility] Comment on above: Performed By: #### L [id number] ####[facility] (BEAKER)[address] [place] [address] MCV (RBC) [Entitic vol] 102.4 fL High 82.0-98.0 [facility] Comment on above: Performed By: #### L [id number] ####[facility] (BEAKER)[address] [place] [address] Monocytes (Bld) [#/Vol] 0.80 10*3/uL Normal 0.10-1.00 [facility] Comment on above: Performed By: #### L [id number] ####[facility] (AKER)[address] [place] [address] Monocytes/100 WBC (Bld) 13.9 % High 5.0-12.0 [facility] Comment on above: Performed By: #### L [id number] ####[facility] (AKER)[address] [place] [address] Neutrophils (Bld) [#/Vol] 3.26 10*3/uL Normal 1.60-7.60 [facility] Comment on above: Performed By: #### L [id number] ####[facility] (AKER)[address] [place] [address] Neutrophils/100 WBC (Bld) 56.6 % Normal 40.0-72.0 [facility] Comment on above: Performed By: #### L [id number] ####[facility] (BEAKER)[address] [place] [address] NRBC (PER 100 WBCS) BY AUTOMATED COUNT 0.0 % Normal 0 [facility] Comment on above: Performed By: #### L [id number] ####[facility] (BEAKER)[address] [place] [address] PLATELETS (10*3/UL) IN BLOOD AUTOMATED COUNT 181 10*3/uL Normal 150-400 [facility] Comment on above: Performed By: #### L [id number] ####[facility] (BEAKER)[address] [place] [address] RBC (Bld) [#/Vol] 4.66 10*6/uL Normal 4.20-5.70 [facility] Comment on above: Performed By: #### L [id number] ####[facility] ([facility])[address] [place] [address] WBC (Bld) [#/Vol] 5.76 10*3/uL Normal 4.00-10.60 [facility] Comment on above: Performed By: #### L [id number] ####[facility] ([facility])[address] [place] [address] MAGNESIUMon 10-09-2023 Magnesium [Mass/Vol] 2.1 mg/dL Normal 1.9-2.7 [facility] Comment on above: Performed By: #### L [id number] #### [facility] ([facility]) [address] [place] [address] POCT GLUCOSE METER UNSOLICIT ED RESULTSon 10-09-2023 Glucose [Mass/Vol] 160 mg/dL High 70-105 [facility] Comment on above: Order Comment: Waive d Testing in the ED is performed under the ED CLIA certificate #[id number]. Result Comment: [email or web address] Performed By: #### L [id number] ####[facility] ([facility])[address] [place] [address] Glucose [Mass/Vol] 148 mg/dL High 70-105 [facility] Comment on above: Order Comment: Waive d Testing in the ED is performed under the ED CLIA certificate #[id number]. Result Comment: [email or web address] Performed By: #### L [id number] ####[facility] ([facility])[address] [place] [address] Glucose [Mass/Vol] 146 mg/dL High 70-105 [facility] Comment on above: Order Comment: Waive d Testing in the ED is performed under the ED CLIA certificate #[id number]. Result Comment: [email or web address] Performed By: #### L [id number] ####[facility] ([facility])[address] [place] [address] 30on 10-08-2023 30 The patient is Moderately [...] and behaviors that affect risk of falls [place] fall precautions as indicated by assessment Educate [...] and prevent overall improvement and discharge Normal [facility] 30 The patient is Moderately Stable - Low risk of patient condition declining or worsening The patient's goals for the shift include comfort The clinical goals for the shift include hemodynamically stable Problem: Pain - Adult Goal: Verbalizes/displays adequate comfort level or baseline comfort level Outcome: Progressing Problem: Safety - Adult Goal: Free from fall injury Outcome: Progressing Flowsheets (Taken 10/08/2023 0752) Free from fall injury: Assess patient frequently for physical needs Identify cognitive and physical deficits and behaviors that affect risk of falls [place] fall precautions as indicated by assessment Problem: [...] the next 3 months Outcome: Progressing Normal [facility] 30 The patient is Moderately [...] and behaviors that affect risk of falls [place] fall precautions as indicated by assessment Educate [...] conditions affect the heart Outcome: Progressing Normal [facility] BASIC METABOLIC PANELon 03-0 Anion gap [Moles/Vol] 15 mmol/L Normal 7-20 [facility] Comment on above: Performed By: #### L [id number] #### [facility] (BEAKER) [address] [place] [address] Calcium [Mass/Vol] 9.0 mg/dL Normal 8.6-10.3 [facility] Comment on above: Performed By: #### L [id number] #### [facility] (BEAKER) [address] [place] [address] Chloride [Moles/Vol] 101 mmol/L Normal 98-107 [facility] Comment on above: Performed By: #### L [id number] #### [facility] (BEAKER) [address] [place] [address] CO2 [Moles/Vol] 25 mmol/L Normal 21-[address] [facility] Comment on above: Performed By: #### L [id number] #### [facility] (BEAKER) [address] [place] [address] Creatinine [Mass/Vol] 1.01 mg/dL Normal 0.70-1.30 [facility] Comment on above: Performed By: #### L [id number] #### [facility] ([facility] [address] [place] [address] GLOMERULAR FILTRATION RATE ML/MIN/1.73 SQ M.PREDICTED 90.6 mL/min/1.73m*2 Normal >60.0 [facility] Comment on above: Result Comment: [facility]???s estimated glomerular filtration rate (eGFR) [...] individuals. Performed By: #### L [id number] #### [facility] ([facility]) [address] [place] [address] Glucose [Mass/Vol] 160 mg/dL High 70-100 [facility] Comment on above: Performed By: #### L [id number] #### [facility] ([facility]) [address] [place] [address] Potassium [Moles/Vol] 4.1 mmol/L Normal 3.5-5.1 [facility] Comment on above: Performed By: #### L [id number] #### [facility] ([facility]) [address] [place] [address] Sodium [Moles/Vol] 137 mmol/L Normal 136-145 [facility] Comment on above: Performed By: #### L [id number] #### [facility] ([facility]) [address] [place] [address] Urea nitrogen [Mass/Vol] 34 mg/dL High 7-25 [facility] Comment on above: Performed By: #### L [id number] #### [facility] ([facility]) [address] [place] [address] UREA NITROGEN/CREATININE (MASS RATIO) IN SER/PLAS 33.7 Normal [facility] Comment on above: Performed By: #### L [id number] #### [facility] ([facility]) [address] [place] [address] CBC WITH AUTO DIFFERENTIALon 10-08-2023 Basophils (Bld) [#/Vol] 0.06 10*3/uL Normal 0.00-0.20 [facility] Comment on above: Performed By: #### L [id number] #### [facility] ([facility]) [address] [place] [address] Basophils/100 WBC (Bld) 1.0 % Normal 0.0-1.0 [facility] Comment on above: Performed By: #### L [id number] #### [facility] ([facility]) [address] [place] [address] Eosinophils (Bld) [#/Vol] 0.12 10*3/uL Normal 0.00-0.50 [facility] Comment on above: Performed By: #### L [id number] #### [facility] (BEAKER) [address] [place] [address] Eosinophils/100 WBC (Bld) 2.0 % Normal 0.0-6.0 [facility] Comment on above: Performed By: #### L [id number] #### [facility] ([facility] [address] [place] [address] Erythrocyte distribution width (RBC) [Ratio] 12.2 % Normal 11.5-15.0 [facility] Comment on above: Performed By: #### L [id number] #### [facility] ([facility] [address] [place] [address] ERYTHROCYTE MEAN CORPUSCULAR HEMOGLOBIN CONCENTRATION (G/DL) BY AUTOMATED 33.5 g/dL Normal 32.0-35.0 [facility] Comment on above: Performed By: #### L [id number] #### [facility] ([facility] [address] [address] Hematocrit (Bld) [Volume fraction] 48.0 % Normal 39.0-55.0 [facility] Comment on above: Performed By: #### L [id number] #### [facility] (BEAKER) [address] [address] Hemoglobin (Bld) [Mass/Vol] 16.1 g/dL Normal 13.0-17.0 [facility] Comment on above: Performed By: #### L [id number] #### [facility] (BEAKER) [address] [address] Immature granulocytes (Bld) [#/Vol] 0.02 10*3/uL Normal 0.00-0.20 [facility] Comment on above: Performed By: #### L [id number] #### [facility] (BEAKER) [address] [place] [address] Immature granulocytes/100 WBC (Bld) 0.3 % Normal 0.0-1.0 [facility] Comment on above: Performed By: #### L [id number] #### [facility] ([facility]) [address] [place] [address] Lymphocytes (Bld) [#/Vol] 1.47 10*3/uL Normal 1.20-4.00 [facility] Comment on above: Performed By: #### L [id number] #### [facility] ([facility]) [address] [place] [place] [address] Lymphocytes/100 WBC (Bld) 24.6 % Normal 20.0-45.0 [facility] Comment on above: Performed By: #### L [id number] #### [facility] ([facility]) [address] [place] [address] MCH (RBC) [Entitic mass] 34.8 pg High 27.0-33.0 [facility] Comment on above: Performed By: #### L [id number] #### [facility] ([facility]) [address] [place] [address] MCV (RBC) [Entitic vol] 103.9 fL High 82.0-98.0 [facility] Comment on above: Performed By: #### L [id number] #### [facility] ([facility]) [address] [place] [address] Monocytes (Bld) [#/Vol] 0.85 10*3/uL Normal 0.10-1.00 [facility] Comment on above: Performed By: #### L [id number] #### [facility] ([facility]) [address] [place] [address] Monocytes/100 WBC (Bld) 14.2 % High 5.0-12.0 [facility] Comment on above: Performed By: #### L [id number] #### [facility] ([facility]) [address] [place] [address] Neutrophils (Bld) [#/Vol] 3.46 10*3/uL Normal 1.60-7.60 [facility] Comment on above: Performed By: #### L [id number] #### [facility] ([facility]) [address] [place] [address] Neutrophils/100 WBC (Bld) 57.9 % Normal 40.0-72.0 [facility] Comment on above: Performed By: #### L [id number] #### [facility] ([facility]) [address] [place] [address] NRBC (PER 100 WBCS) BY AUTOMATED COUNT 0.0 % Normal 0 [facility] Comment on above: Performed By: #### L [id number] #### [facility] ([facility]) [address] [place] [address] PLATELETS (10*3/UL) IN BLOOD AUTOMATED COUNT 196 10*3/uL Normal 150-400 [facility] Comment on above: Performed By: #### L [id number] #### [facility] ([facility]) [address] [place] [address] RBC (Bld) [#/Vol] 4.62 10*6/uL Normal 4.20-5.70 [facility] Comment on above: Performed By: #### L [id number] #### [facility] ([facility]) [address] [place] [address] WBC (Bld) [#/Vol] 5.98 10*3/uL Normal 4.00-10.60 [facility] Comment on above: Performed By: #### L [id number] #### [facility] ([facility]) [address] [place] [address] POCT GLUCOSE METER UNSOLICIT ED RESULTSon 10-08-2023 Glucose [Mass/Vol] 171 mg/dL High 70-105 [facility] Comment on above: Order Comment: Waive d Testing in the ED is performed under the ED CLIA certificate #[id number]. Result Comment: [email or web address] Performed By: #### L [id number] ####[facility] ([facility])[address] [place] [address] Glucose [Mass/Vol] 128 mg/dL High 70-105 [facility] Comment on above: Order Comment: Waive d Testing in the ED is performed under the ED CLIA certificate #[id number]. Result Comment: [email or web address] Performed By: #### L [id number] ####[facility] (BEAKER)[address] [place] [address] Glucose [Mass/Vol] 170 mg/dL High 70-105 [facility] Comment on above: Order Comment: Waive d Testing in the ED is performed under the ED CLIA certificate #[id number]. Result Comment: [email or web address] Performed By: #### L [id number] ####[facility] (BEAKER)[address] [place] [address] Glucose [Mass/Vol] 174 mg/dL High 70-105 [facility] Comment on above: Order Comment: Waive d Testing in the ED is performed under the ED CLIA certificate #[id number]. Result Comment: [email or web address] Performed By: #### L [id number] ####[facility] (BEAKER)[address] [place] [address] 30on 10-07-2023 30 The patient is Moderately [...] and behaviors that affect risk of falls [place] fall precautions as indicated by assessment Educate [...] the next 3 months Outcome: Progressing Normal [facility] Og 10-07-2023 SAPNAS -- Attestation signed by Yakelin Herrera MD at 10/07/2023 11:02 AM Yakelin Herrera MD, MPH, LOCATED WITHIN [facility], [facility], [facility] Interventional Cardiology Pager Email: [email or web address] Patient: Tera Roberto Procedure Information Date/Time: 10/07/23 1700 Procedures: Coronary angiography Right heart cath Location: [facility] COUNSELING SERVICES DIRECTOR 3 / [facility] (Cath) Providers: Yakelin Herrera MD Clinical information reviewed: Allergies Physical Exam Airway Mallampati: III TM distance: >3 FB Neck ROM: full Cardiovascular Rhythm: regular Rate: normal Dental Pulmonary Abdominal Anesthesia Plan ASA 3 Anesthetic plan and risks discussed with patient. Use of blood products discussed with patient who. Plan discussed with attending. Additional Equipment Requests Normal [facility] BASIC METABOLIC PANELon 03-0 Anion gap [Moles/Vol] 14 mmol/L Normal 7-20 [facility] Comment on above: Performed By: #### L [id number] #### [facility] (BEAKER) [address] [place] [address] Calcium [Mass/Vol] 9.5 mg/dL Normal 8.6-10.3 [facility] Comment on above: Performed By: #### L [id number] #### [facility] (BEAKER) [address] [place] [address] Chloride [Moles/Vol] 101 mmol/L Normal 98-107 [facility] Comment on above: Performed By: #### L [id number] #### [facility] ([facility]AK[facility]) [address] [place] [address] CO2 [Moles/Vol] 26 mmol/L Normal 21-[address] [facility] Comment on above: Performed By: #### L [id number] #### [facility] ([facility]) [address] [place] [address] Creatinine [Mass/Vol] 0.96 mg/dL Normal 0.70-1.30 [facility] Comment on above: Performed By: #### L [id number] #### [facility] ([facility]) [address] [place] [address] GLOMERULAR FILTRATION RATE ML/MIN/1.73 SQ M.PREDICTED 96.3 mL/min/1.73m*2 Normal >60.0 [facility] Comment on above: Result Comment: [facility]???s estimated glomerular filtration rate (eGFR) [...] individuals. Performed By: #### L [id number] #### [facility] ([facility]) [address] [place] [address] Glucose [Mass/Vol] 208 mg/dL High 70-100 [facility] Comment on above: Performed By: #### L [id number] #### [facility] ([facility]) [address] [place] [address] Potassium [Moles/Vol] 3.9 mmol/L Normal 3.5-5.1 [facility] Comment on above: Performed By: #### L [id number] #### [facility] ([facility]) [address] [place] [address] Sodium [Moles/Vol] 137 mmol/L Normal 136-145 [facility] Comment on above: Performed By: #### L [id number] #### [facility] ([facility]) [address] [place] [address] Urea nitrogen [Mass/Vol] 30 mg/dL High 7-25 [facility] Comment on above: Performed By: #### L [id number] #### [facility] ([facility]) [address] [place] [address] UREA NITROGEN/CREATININE (MASS RATIO) IN SER/PLAS 31.3 Normal [facility] Comment on above: Performed By: #### L [id number] #### [facility] ([facility]) [address] [place] [address] CBC WITH AUTO DIFFERENTIALon 10-07-2023 Basophils (Bld) [#/Vol] 0.03 10*3/uL Normal 0.00-0.20 [facility] Comment on above: Performed By: #### L [id number] #### [facility] ([facility]) [address] [place] [address] Basophils/100 WBC (Bld) 0.6 % Normal 0.0-1.0 [facility] Comment on above: Performed By: #### L [id number] #### [facility] ([facility]) [address] [place] [address] Eosinophils (Bld) [#/Vol] 0.11 10*3/uL Normal 0.00-0.50 [facility] Comment on above: Performed By: #### L [id number] #### [facility] ([facility]) [address] [place] [address] Eosinophils/100 WBC (Bld) 2.0 % Normal 0.0-6.0 [facility] Comment on above: Performed By: #### L [id number] #### [facility] ([facility]) [address] [address] Erythrocyte distribution width (RBC) [Ratio] 12.2 % Normal 11.5-15.0 [facility] Comment on above: Performed By: #### L [id number] #### [facility] ([facility]) [address] [place] [address] ERYTHROCYTE MEAN CORPUSCULAR HEMOGLOBIN CONCENTRATION (G/DL) BY AUTOMATED 34.3 g/dL Normal 32.0-35.0 [facility] Comment on above: Performed By: #### L [id number] #### [facility] ([facility]) [address] [place] [address] Hematocrit (Bld) [Volume fraction] 50.5 % Normal 39.0-55.0 [facility] Comment on above: Performed By: #### L [id number] #### [facility] ([facility]) [address] [place] [address] Hemoglobin (Bld) [Mass/Vol] 17.3 g/dL High 13.0-17.0 [facility] Comment on above: Performed By: #### L [id number] #### [facility] ([facility]) [address] [place] [address] Immature granulocytes (Bld) [#/Vol] 0.02 10*3/uL Normal 0.00-0.20 [facility] Comment on above: Performed By: #### L [id number] #### [facility] ([facility]) [address] [place] [address] Immature granulocytes/100 WBC (Bld) 0.4 % Normal 0.0-1.0 [facility] Comment on above: Performed By: #### L [id number] #### [facility] ([facility]) [address] [place] [address] Lymphocytes (Bld) [#/Vol] 1.32 10*3/uL Normal 1.20-4.00 [facility] Comment on above: Performed By: #### L [id number] #### [facility] ([facility]) [address] [place] [address] Lymphocytes/100 WBC (Bld) 24.3 % Normal 20.0-45.0 [facility] Comment on above: Performed By: #### L [id number] #### [facility] ([facility]) [address] [place] [address] MCH (RBC) [Entitic mass] 34.9 pg High 27.0-33.0 [facility] Comment on above: Performed By: #### L [id number] #### [facility] ([facility]) [address] [place] [address] MCV (RBC) [Entitic vol] 102.0 fL High 82.0-98.0 [facility] Comment on above: Performed By: #### L [id number] #### [facility] ([facility]) [address] [place] [address] Monocytes (Bld) [#/Vol] 0.68 10*3/uL Normal 0.10-1.00 [facility] Comment on above: Performed By: #### L [id number] #### [facility] ([facility]) [address] [place] [address] Monocytes/100 WBC (Bld) 12.5 % High 5.0-12.0 [facility] Comment on above: Performed By: #### L [id number] #### [facility] ([facility]) [address] [place] [address] Neutrophils (Bld) [#/Vol] 3.27 10*3/uL Normal 1.60-7.60 [facility] Comment on above: Performed By: #### L [id number] #### [facility] ([facility]) [address] [place] [address] Neutrophils/100 WBC (Bld) 60.2 % Normal 40.0-72.0 [facility] Comment on above: Performed By: #### L [id number] #### [facility] ([facility]) [address] [place] [address] NRBC (PER 100 WBCS) BY AUTOMATED COUNT 0.0 % Normal 0 [facility] Comment on above: Performed By: #### L [id number] #### [facility] ([facility]) [address] [place] [address] PLATELETS (10*3/UL) IN BLOOD AUTOMATED COUNT 216 10*3/uL Normal 150-400 [facility] Comment on above: Performed By: #### L [id number] #### [facility] [address] [place] [address] RBC (Bld) [#/Vol] 4.95 10*6/uL Normal 4.20-5.70 [facility] Comment on above: Performed By: #### L [id number] #### [facility] ([facility]) [address] [place] [address] WBC (Bld) [#/Vol] 5.43 10*3/uL Normal 4.00-10.60 [facility] Comment on above: Performed By: #### L [id number] #### [facility] ([facility]) [address] [place] [address] CONSULTon 10-07-2023 CONSULT -- Attestation signed by [...] bilateral hilar lymphadenopathy. Patient was transferred to [facility] for further evaluation, echocardiogram showed [...] No Food Insecurity (more content not included)... [facility] HPon 10-07-2023 HP -- Attestation signed by Yakelin Herrera MD at 10/07/2023 11:02 AM Yakelin Herrera MD, MPH, LOCATED WITHIN [facility], [facility], [facility] Interventional Cardiology Pager Email: [email or web address] H&P reviewed. Patient with multiple coronary [...] were addressed and answered. Florina Prasad MD [employer] - PGY5 [facility] Normal [facility] POCT GLUCOSE METER UNSOLICIT ED RESULTSon 10-07-2023 Glucose [Mass/Vol] 173 mg/dL High 70-105 [facility] Comment on above: Order Comment: Waive d Testing in the ED is performed under the ED CLIA certificate #[id number]. Result Comment: [email or web address] Performed By: #### L [id number] #### [facility] ([employer]) [address] [place] [address] Glucose [Mass/Vol] 169 mg/dL High 70-105 [facility] Comment on above: Order Comment: Waive d Testing in the ED is performed under the ED CLIA certificate #[id number]. Result Comment: [email or web address] Performed By: #### L [id number] ####[facility] ([facility])[address] [place] [address] Glucose [Mass/Vol] 242 mg/dL High 70-105 [facility] Comment on above: Order Comment: Waive d Testing in the ED is performed under the ED CLIA certificate #[id number]. Result Comment: [email or web address] Performed By: #### L [id number] #### [facility] ([employer]) [address] [place] [address] 30on 10-06-2023 30 The patient is Moderately [...] and behaviors that affect risk of falls [place] fall precautions as indicated by assessment Educate [...] and prevent overall improvement and discharge Normal [facility] 30 The patient is Moderately Stable - Low risk of patient condition declining or worsening The patient's goals for the shift include rest The clinical goals for the shift include comfort/vss Normal [facility] 30 The patient is Moderately [...] and maintained or improved Outcome: Progressing Normal [facility] B-TYPE NATRIURETIC PEPTIDEon 10-06-2023 Natriuretic peptide B (Bld) [Mass/Vol] 752 pg/mL High 0-100 [facility] Comment on above: Performed By: #### L [id number] #### [facility] ([facility]) [address] [place] [address] Natriuretic peptide B (Bld) [Mass/Vol] 711 pg/mL High 0-100 [facility] Comment on above: Performed By: #### L [id number] #### [facility] [address] [place] [address] BASIC METABOLIC PANELon 09-09 Anion gap [Moles/Vol] 16 mmol/L Normal 7-20 [facility] Comment on above: Performed By: #### L [id number] ####[facility] ([facility] [place] [address] Calcium [Mass/Vol] 9.7 mg/dL Normal 8.6-10.3 [facility] Comment on above: Performed By: #### L [id number] ####[facility] ([facility]ER)[address] [place] [address] Chloride [Moles/Vol] 99 mmol/L Normal 98-107 [facility] Comment on above: Performed By: #### L [id number] ####[facility] ([facility])[address] [place] [address] CO2 [Moles/Vol] 26 mmol/L Normal 21-[address] [facility] Comment on above: Performed By: #### L [id number] ####[facility] ([facility]ER)[address] [place] [address] Creatinine [Mass/Vol] 1.03 mg/dL Normal 0.70-1.30 [facility] Comment on above: Performed By: #### L [id number] ####[facility] ([facility]ER)[address] [place] [address] GLOMERULAR FILTRATION RATE ML/MIN/1.73 SQ M.PREDICTED 88.5 mL/min/1.73m*2 Normal >60.0 [facility] Comment on above: Result Comment: [facility]???s estimated glomerular filtration rate (eGFR) [...] of individuals. Performed By: #### L [id number] ####[facility] ([facility])[address] [place] [address] Glucose [Mass/Vol] 185 mg/dL High 70-100 [facility] Comment on above: Performed By: #### L [id number] ####[facility] ([facility])[address] [place] [address] Potassium [Moles/Vol] 4.3 mmol/L Normal 3.5-5.1 [facility] Comment on above: Performed By: #### L [id number] ####[facility] ([facility])[address] [place] [address] Sodium [Moles/Vol] 137 mmol/L Normal 136-145 [facility] Comment on above: Performed By: #### L [id number] ####[facility] ([facility])[address] [place] [address] Urea nitrogen [Mass/Vol] 22 mg/dL Normal 7-25 [facility] Comment on above: Performed By: #### L [id number] ####[facility] ([facility] [place] [address] UREA NITROGEN/CREATININE (MASS RATIO) IN SER/PLAS 21.4 Normal [facility] Comment on above: Performed By: #### L [id number] ####[facility] ([facility])[address] [place] [address] Anion gap [Moles/Vol] 16 mmol/L Normal 7-20 [facility] Comment on above: Performed By: #### L [id number] #### [facility] ([facility] [address] [place] [address] Calcium [Mass/Vol] 9.6 mg/dL Normal 8.6-10.3 [facility] Comment on above: Performed By: #### L [id number] #### [facility] ([facility]) [address] [place] [address] Chloride [Moles/Vol] 99 mmol/L Normal 98-107 [facility] Comment on above: Performed By: #### L [id number] #### [facility] ([facility]) [address] [place] [address] CO2 [Moles/Vol] 26 mmol/L Normal 21-[address] [facility] Comment on above: Performed By: #### L [id number] #### [facility] ([facility]) [address] [place] [address] Creatinine [Mass/Vol] 0.98 mg/dL Normal 0.70-1.30 [facility] Comment on above: Performed By: #### L [id number] #### [facility] ([facility]) [address] [place] [address] GLOMERULAR FILTRATION RATE ML/MIN/1.73 SQ M.PREDICTED 93.9 mL/min/1.73m*2 Normal >60.0 [facility] Comment on above: Result Comment: [facility]???s estimated glomerular filtration rate (eGFR) [...] individuals. Performed By: #### L [id number] #### [facility] ([facility]) [address] [place] [address] Glucose [Mass/Vol] 176 mg/dL High 70-100 [facility] Comment on above: Performed By: #### L [id number] #### [facility] ([facility]) [address] [place] [address] Potassium [Moles/Vol] 4.3 mmol/L Normal 3.5-5.1 [facility] Comment on above: Performed By: #### L [id number] #### [facility] ([facility]) [address] [facility] [place] [address] Sodium [Moles/Vol] 137 mmol/L Normal 136-145 [facility] Comment on above: Performed By: #### L [id number] #### [facility] ([facility]) [address] [place] [address] Urea nitrogen [Mass/Vol] 22 mg/dL Normal 7-25 [facility] Comment on above: Performed By: #### L [id number] #### [facility] ([facility]) [address] [place] [place] [address] UREA NITROGEN/CREATININE (MASS RATIO) IN SER/PLAS 22.4 Normal [facility] Comment on above: Performed By: #### L [id number] #### [facility] ([facility]) [address] [place] [address] CBC WITH AUTO DIFFERENTIALon 10-06-2023 Basophils (Bld) [#/Vol] 0.06 10*3/uL Normal 0.00-0.20 [facility] Comment on above: Performed By: #### L [id number] ####[facility] ([facility])[address] [place] [address] Basophils/100 WBC (Bld) 1.0 % Normal 0.0-1.0 [facility] Comment on above: Performed By: #### L [id number] ####[facility] ([facility])[address] [place] [address] Eosinophils (Bld) [#/Vol] 0.11 10*3/uL Normal 0.00-0.50 [facility] Comment on above: Performed By: #### L [id number] ####[facility] ([facility])[address] [place] [address] Eosinophils/100 WBC (Bld) 1.8 % Normal 0.0-6.0 [facility] Comment on above: Performed By: #### L [id number] ####[facility] ([facility] [place] [address] Erythrocyte distribution width (RBC) [Ratio] 12.3 % Normal 11.5-15.0 [facility] Comment on above: Performed By: #### L [id number] ####[facility] ([facility])[address] [place] [address] ERYTHROCYTE MEAN CORPUSCULAR HEMOGLOBIN CONCENTRATION (G/DL) BY AUTOMATED 34.1 g/dL Normal 32.0-35.0 [facility] Comment on above: Performed By: #### L [id number] ####[facility] ([facility] [place] [address] Hematocrit (Bld) [Volume fraction] 50.7 % Normal 39.0-55.0 [facility] Comment on above: Performed By: #### L [id number] ####[facility] ([facility])[address] [place] [address] Hemoglobin (Bld) [Mass/Vol] 17.3 g/dL High 13.0-17.0 [facility] Comment on above: Performed By: #### L [id number] ####[facility] ([facility])[address] [place] [address] Immature granulocytes (Bld) [#/Vol] 0.02 10*3/uL Normal 0.00-0.20 [facility] Comment on above: Performed By: #### L [id number] ####[facility] ([facility])[address] [place] [address] Immature granulocytes/100 WBC (Bld) 0.3 % Normal 0.0-1.0 [facility] Comment on above: Performed By: #### L [id number] ####[facility] ([facility])[address] [place] [address] Lymphocytes (Bld) [#/Vol] 1.25 10*3/uL Normal 1.20-4.00 [facility] Comment on above: Performed By: #### L [id number] ####[facility] ([facility])[address] [place] [address] Lymphocytes/100 WBC (Bld) 20.1 % Normal 20.0-45.0 [facility] Comment on above: Performed By: #### L [id number] ####[facility] ([facility])[address] [place] [address] MCH (RBC) [Entitic mass] 34.7 pg High 27.0-33.0 [facility] Comment on above: Performed By: #### L [id number] ####[facility] ([facility]ER)[address] [place] [address] MCV (RBC) [Entitic vol] 101.6 fL High 82.0-98.0 [facility] Comment on above: Performed By: #### L [id number] ####[facility] ([facility])[address] [place] [address] Monocytes (Bld) [#/Vol] 0.75 10*3/uL Normal 0.10-1.00 [facility] Comment on above: Performed By: #### L [id number] ####[facility] ([facility])[address] [place] [address] Monocytes/100 WBC (Bld) 12.0 % Normal 5.0-12.0 [facility] Comment on above: Performed By: #### L [id number] ####[facility] ([facility])[address] [place] [address] Neutrophils (Bld) [#/Vol] 4.04 10*3/uL Normal 1.60-7.60 [facility] Comment on above: Performed By: #### L [id number] ####[facility] ([facility])[address] [place] [address] Neutrophils/100 WBC (Bld) 64.8 % Normal 40.0-72.0 [facility] Comment on above: Performed By: #### L [id number] ####[facility] ([facility])[address] [place] [address] NRBC (PER 100 WBCS) BY AUTOMATED COUNT 0.0 % Normal 0 [facility] Comment on above: Performed By: #### L [id number] ####[facility] ([facility])[address] [place] [address] PLATELETS (10*3/UL) IN BLOOD AUTOMATED COUNT 219 10*3/uL Normal 150-400 [facility] Comment on above: Performed By: #### L [id number] ####[facility] ([facility])[address] [place] [address] RBC (Bld) [#/Vol] 4.99 10*6/uL Normal 4.20-5.70 [facility] Comment on above: Performed By: #### L [id number] ####[facility] ([facility])[address] [place] [address] WBC (Bld) [#/Vol] 6.23 10*3/uL Normal 4.00-10.60 [facility] Comment on above: Performed By: #### L [id number] ####[facility] ([facility])[address] [place] [address] CONSULTon 10-06-2023 CONSULT -- Attestation signed by [...] obesity, LARS, tobacco dependence intially presents to [facility] after sudden onset SOB. He woke [...] for takotsubo cardiomyopathy. Patient was transferred to [facility] for further evalaution. Upon arrival, [...] Value Ventricular Rate 88 Atrial Rate 88 LA Interval 162 QRS DURATION 84 QT Interval 404 QTC CALCULATION(BAZETT) 488 P [place] 50 R-[place] 0 T Wave [place] 61 Impression Sinus rhythm with occasional Premature [...] 12 l (more content not included)... Normal [facility] CONSULT Clinical Nutrition Assessment Name: [...] with questions and contact the dietitian via Teleborder chat 8A-4P Tuesday-Tuesday. Or call the dietitian's office at extension [phone]. For weekends/holidays, the dietitian's can be reached by paging [phone] from 9A-3P. Unable to be reached via NGDATA chat on Tuesday & .) [facility] -- Attestation signed by [...] obesity, LARS, tobacco dependence intially presents to [facility] after sudden onset SOB. He woke [...] for takotsubo cardiomyopathy. Patient was transferred to [facility] for further evalaution. Upon arrival, [...] Value Ventricular Rate 88 Atrial Rate 88 LA Interval 162 QRS DURATION 84 QT Interval 404 QTC CALCULATION(BAZETT) 488 P [place] 50 R-[place] 0 T Wave [place] 61 Impression Sinus rhythm with occasional Premature [...] 12 l (more content not included)... Normal [facility] LEGIONELLA ANTIGEN, URINEon 10-06-2023 LEGIONELLA AG, UR Negative Normal NEG [facility] Comment on above: Result Comment: L. p neumophila serogroup 1 antigen not detected. A negative result does not exclude infection with Leginella pnemophila serogroup 1 nor does it rule out other microbial-caused respiratory infections of disease caused by other serogroups of Legionella pneumophila. Test Performed by [facility] Clifford [address] [place] [address] - Released 10/06/2023 20:50 Performed By: #### L [id number] ####[facility] [id number] [place] [address] LIPID PANELon 10-06-2023 CHOL/HDL 4.5 mg/dL Normal [facility] Comment on above: Performed By: #### L [id number] #### [facility] ([facility]) [address] [place] [address] Cholesterol [Mass/Vol] 229 mg/dL High 120-200 [facility] Comment on above: Performed By: #### L [id number] #### [facility] ([facility]) [address] [place] [address] CHOLESTEROL IN LDL (MG/DL) IN SERUM OR PLASMA BY CALCULATION Normal [facility] Comment on above: Result Comment: Calc ulated LDL invalid, triglycerides >400 mg/dl Performed By: #### L [id number] #### [facility] ([facility]) [address] [place] [address] Magnesium [Mass/Vol] 469 mg/dL High 40-149 [facility] Comment on above: Result Comment: TRIG LYCERIDE REFERENCE RANGE: 20 YEARS AND OLDER CARDIOVASCULAR RISK LESS THAN 150 mg/dL LOW RISK 150 TO 199 mg/dL BORDERLINE RISK 200 mg/dL AND GREATER HIGH RISK Performed By: #### L [id number] #### [facility] ([facility]) [address] [place] [address] Magnesium [Mass/Vol] 51 mg/dL Normal 23-92 [facility] Comment on above: Performed By: #### L [id number] #### [facility] ([facility]) [address] [place] [address] NON HDL CHOL. (LDL+VLDL) 178 Normal [facility] Comment on above: Performed By: #### L [id number] #### [facility] ([facility]) [address] [place] [address] TOTAL VLDL-C 94 mg/dL High 0-40 [facility] Comment on above: Performed By: #### L [id number] #### [facility] ([employer]) [address] [place] [address] POCT GLUCOSE METER UNSOLICIT ED RESULTSon 10-06-2023 Glucose [Mass/Vol] 276 mg/dL High 70-105 [facility] Comment on above: Order Comment: Waive d Testing in the ED is performed under the ED CLIA certificate #[id number]. Result Comment: [email or web address] Performed By: #### L [id number] #### [facility] ([employer]) [address] [place] [address] Glucose [Mass/Vol] 187 mg/dL High 70-105 [facility] Comment on above: Order Comment: Waive d Testing in the ED is performed under the ED CLIA certificate #[id number]. Result Comment: [email or web address] Performed By: #### L [id number] #### [facility] ([employer]) [address] [place] [address] Glucose [Mass/Vol] 183 mg/dL High 70-105 [facility] Comment on above: Order Comment: Waive d Testing in the ED is performed under the ED CLIA certificate #[id number]. Result Comment: [email or web address] Performed By: #### L [id number] #### [facility] ([employer]) [address] [place] [place] [address] Glucose [Mass/Vol] 183 mg/dL High 70-105 [facility] Comment on above: Order Comment: Waive d Testing in the ED is performed under the ED CLIA certificate #[id number]. Result Comment: [email or web address] Performed By: #### L [id number] ####[facility] ([employer])[address] [place] [address] STREP PNEUMONIAE ANTIGEN, UR INEon 10-06-2023 STREPTOCOCCUS PNEUMONIAE AG PRESENCE IN URINE Negative Normal Negative [facility] Comment on above: Performed By: #### L [id number] ####[facility] ([facility])[address] [place] [address] TROPONIN Ion 10-06-2023 Troponin I.cardiac [Mass/Vol] 0.03 ng/mL Normal 0.00-0.04 [facility] Comment on above: Performed By: #### L [id number] ####[facility] ([facility])[address] [place] [address] CBCon 10-05-2023 Erythrocyte distribution width (RBC) [Ratio] 12.3 % Normal 11.5-15.0 [facility] Comment on above: Performed By: #### L [id number] #### [facility] ([facility]) [address] [place] [address] ERYTHROCYTE MEAN CORPUSCULAR HEMOGLOBIN CONCENTRATION (G/DL) BY AUTOMATED 33.8 g/dL Normal 32.0-35.0 [facility] Comment on above: Performed By: #### L [id number] #### [facility] ([facility]) [address] [place] [address] Hematocrit (Bld) [Volume fraction] 49.4 % Normal 39.0-55.0 [facility] Comment on above: Performed By: #### L [id number] #### [facility] ([facility]) [address] [place] [address] Hemoglobin (Bld) [Mass/Vol] 16.7 g/dL Normal 13.0-17.0 [facility] Comment on above: Performed By: #### L [id number] #### [facility] ([facility]) [address] [place] [address] IMMATURE PLATELET FRACTION % 11.1 % High 0.8-6.3 [facility] Comment on above: Performed By: #### L [id number] #### [facility] ([facility]) [address] [place] [address] MCH (RBC) [Entitic mass] 34.9 pg High 27.0-33.0 [facility] Comment on above: Performed By: #### L [id number] #### [facility] ([facility]) [address] [place] [address] MCV (RBC) [Entitic vol] 103.3 fL High 82.0-98.0 [facility] Comment on above: Performed By: #### L [id number] #### [facility] ([facility]) [address] [place] [address] PLATELETS (10*3/UL) IN BLOOD AUTOMATED COUNT 149 10*3/uL Low 150-400 [facility] Comment on above: Performed By: #### L [id number] #### [facility] ([facility]) [address] [place] [address] RBC (Bld) [#/Vol] 4.78 10*6/uL Normal 4.20-5.70 [facility] Comment on above: Performed By: #### L [id number] #### [facility] ([facility]) [address] [address] WBC (Bld) [#/Vol] 6.46 10*3/uL Normal 4.00-10.60 [facility] Comment on above: Performed By: #### L [id number] #### [facility] ([facility]) [address] [place] [address] HEMOGLOBIN A1Con 10-05-2023 Glucose [Mass/Vol] 183 mg/dL Normal [facility] Comment on above: Performed By: #### L [id number] #### [facility] ([facility]) [address] [place] [address] HbA1c (Bld) [Mass fraction] 8.0 % High 4.0-6.0 [facility] Comment on above: Performed By: #### L [id number] #### [facility] ([facility]) [address] [place] [address] POCT GLUCOSE METER UNSOLICIT ED RESULTSon 10-05-2023 Glucose [Mass/Vol] 229 mg/dL High 70-105 [facility] Comment on above: Order Comment: Waive d Testing in the ED is performed under the ED CLIA certificate #[id number]. Result Comment: [email or web address] Performed By: #### L [id number] ####[facility] ([employer])[address] [place] [address] Covid-19 PCR ([facility])on 07-09 SARS-CoV-2 (COVID-19) RNA NIXON+probe Ql (Unsp spec) Detected Critically abnormal NOT DETECTED [facility] Comment on above: Result Comment: This test is not yet approved or cleared by the [place] FDA. When there are no FDA-approved or cleared tests available, and other criteria are met, FDA can make tests available under an emergency access mechanism called an Emergency Use Authorization (EUA). The EUA for this test is supported by the Dietetic Technician of Health and Human Service's (HHS's) [...] used). Performed By: #### A 1C #### [facility] [address] [place] [address] Dr. Bridger Aggarwal INFLUENZA A AND B AGon 08-03 [facility] SEE BELOW Normal [facility] Comment on above: Result Comment: Nega tive for Flu A protein angiten. Infection due to Flu A cannot be ruled out. Flu A angiten in the sample may be below the detection limit of the test. Performed By: #### I NFLUAB #### [facility] [address] [place] [address] Dr. Bridger Aggar[facility] SEE BELOW Normal [facility] Comment on above: Result Comment: Nega tive for Flu B protein antigen. Infection due to Flu B cannot be ruled out. Flu B antigen in the sample may be below the detection limit of the test. Performed By: #### I NFLUAB #### [facility] [address] [place] [address] Dr. Bridger Aggarwal INFLUENZA A AG Negative Normal NEGATIVE SEE COMMENT [facility] Comment on above: Performed By: #### I NFLUAB #### [facility] [address] [place] [address] Dr. Bridger Aggarwal INFLUENZA B AG Negative Normal NEGATIVE SEE COMMENT [facility] Comment on above: Performed By: #### I NFLUAB #### [facility] [address] [place] [address] Dr. Bridger Aggarwal INTERNAL CONTROLS Within Normal Limits Normal Wi thin Normal Limits [facility] Comment on above: Performed By: #### I NFLUAB #### [facility] [address] [place] [address] Dr. Bridger Aggarwal CULTURE WOUNDon 04-23-2022 CULTURE [...] F Oxacillin <=0.25 S F Normal [facility] Comment on above: Performed By: #### A 1C #### [facility] [address] [place] [address] Dr. Bridger Aggarwal Covid-19 PCR ([facility])on 03-09 SARS-CoV-2 (COVID-19) RNA NIXON+probe Ql (Unsp spec) Not detected Normal NOT DETECTED [facility] Comment on above: Result Comment: This test is not yet approved or cleared by the [place] FDA. When there are no FDA-approved or cleared tests available, and other criteria are met, FDA can make tests available under an emergency access mechanism called an Emergency Use Authorization (EUA). The EUA for this test is supported by the Dietetic Technician of Health and Human Service's (HHS's) [...] SARS-CoV-2. Performed By: #### A 1C #### [facility] [address] [place] [address] Dr. Bridger Aggarwal Covid-19 PCR ([facility])on SARS-CoV-2 (COVID-19) RNA NIXON+probe Ql (Unsp spec) Not detected Normal NOT DETECTED [facility] Comment on above: Result Comment: When [...] for this test is supported by the Dietetic Technician of Health and Human Service's declaration [...] used). Performed By: #### A 1C #### [facility] [address] [place] [address] Dr. Bridger Aggarwal T4 [facility]Pon 01-01-2022 T4 [Mass/Vol] 4.7 ug/dL Normal 4.5-12.0 [facility] Comment on above: Performed By: #### A 1C #### [facility] [address] [place] [address] Dr. Bridger Aggarwal FREE THYROXINE INDEX T7on FTI 1.69 Normal 1.30-4.50 [facility] Comment on above: Performed By: #### A 1C #### [facility] [address] [place] [address] Dr. Bridger Aggarwal T3U 36.0 % Normal 33.0-40.0 [facility] Comment on above: Performed By: #### A 1C #### [facility] [address] [place] [address] Dr. Bridger Aggarwal T4 [Mass/Vol] 4.70 ug/dL Normal 4.50-12.10 [facility] Comment on above: Performed By: #### A 1C #### [facility] [address] [place] [address] Dr. Bridger Aggarwal TSHon 12-28-2021 TSH 0.969 uIU/mL Normal 0.358-3.740 [facility] Comment on above: Performed By: #### A 1C #### [facility] [address] [place] [address] Dr. Bridger Aggarwal TSH RANGE SEE BELOW Normal [facility] Comment on above: Result Comment: <0.3 4 UIU/ml HYPERTHYROID 0.34-5.60 UIU/ml EUTHYROID >5.60 UIU/ml HYPOTHYROID Performed By: #### A 1C #### [facility] [address] [place] [address] Dr. Bridger Aggarwal CBC AUTO DIFFon 12-26-2021 BASO # 0.0 103/ul Normal 0.0-0.1 [facility] Comment on above: Performed By: #### C BC #### [facility] [address] [place] [address] Dr. Bridger Aggarwal Basophils/100 WBC (Bld) 0.4 % Normal 0.2-2.0 [facility] Comment on above: Performed By: #### C BC #### [facility] [address] [place] [address] Dr. Bridger Aggarwal EO # 0.1 103/ul Normal 0.0-0.7 [facility] Comment on above: Performed By: #### C BC #### [facility] [address] [place] [address] Dr. Bridger Aggarwal Eosinophils/100 WBC (Bld) 0.6 % Critically low 0.9-7.0 [facility] Comment on above: Performed By: #### C BC #### [facility] [address] [place] [address] Dr. Bridger Aggarwal Erythrocyte distribution width (RBC) [Ratio] 12.0 % Normal 11.0-15.0 [facility] Comment on above: Performed By: #### C BC #### [facility] [address] [place] [address] Dr. Bridger Aggarwal Hematocrit (Bld) [Volume fraction] 44.9 % Normal 42.0-54.0 [facility] Comment on above: Performed By: #### C BC #### [facility] [address] [place] [address] Dr. Bridger Aggarwal Hemoglobin (Bld) [Mass/Vol] 15.4 g/dL Normal 14.0-18.0 [facility] Comment on above: Performed By: #### C BC #### [facility] [address] [place] [address] Dr. Bridger Aggarwal IG # 0.03 10e3/ul Normal 0.00-0.03 [facility] Comment on above: Performed By: #### C BC #### [facility] [address] [place] [address] Dr. Bridger Aggarwal IG % 0.3 % Normal 0.0-0.5 [facility] Comment on above: Performed By: #### C BC #### [facility] [address] [place] [address] Dr. Bridger Aggarwal LYMPH # 1.5 103/ul Normal 1.2-3.8 [facility] Comment on above: Performed By: #### C BC #### [facility] [address] [place] [address] Dr. Bridger Aggarwal Lymphocytes/100 WBC (Bld) 14.2 % Critically low 20.5-60.0 [facility] Comment on above: Performed By: #### C BC #### [facility] [address] [place] [address] Dr. Bridger Aggarwal MANUAL DIFF REQ NO Normal [facility] Comment on above: Performed By: #### C BC #### [facility] [address] [place] [address] Dr. Bridger Aggarwal MCH (RBC) [Entitic mass] 34.2 pg Critically high 25.9-34.0 [facility] Comment on above: Performed By: #### C BC #### [facility] [address] [place] [address] Dr. Bridger Aggarwal MCHC (RBC) [Mass/Vol] 34.3 g/dL Normal 29.9-35.2 [facility] Comment on above: Performed By: #### C BC #### [facility] [address] [place] [address] Dr. Bridger Aggarwal MCV (RBC) [Entitic vol] 99.8 fL Critically high 80.0-94.0 [facility] Comment on above: Performed By: #### C BC #### [facility] [address] [place] [address] Dr. Bridger Aggarwal MONO # 0.7 103/ul Normal 0.3-0.8 [facility] Comment on above: Performed By: #### C BC #### [facility] [address] [place] [address] Dr. Bridger Aggarwal Monocytes/100 WBC (Bld) 6.3 % Normal 1.7-12.0 [facility] Comment on above: Performed By: #### C BC #### [facility] [address] [place] [address] Dr. Bridger Aggarwal NEUT # 8.2 103/ul Critically high 1.4-6.5 [facility] Comment on above: Performed By: #### C BC #### [facility] [address] [place] [address] Dr. Bridger Aggarwal Neutrophils/100 WBC (Bld) 78.2 % Critically high 43.0-75.0 [facility] Comment on above: Performed By: #### C BC #### [facility] [address] [place] [address] Dr. Bridger Aggarwal Platelet mean volume (Bld) [Entitic vol] 9.6 fL Normal 9.5-13.5 [facility] Comment on above: Performed By: #### C BC #### [facility] [address] [place] [address] Dr. Bridger Aggarwal PLT 247 103/ul Normal 150-450 [facility] Comment on above: Performed By: #### C BC #### [facility] [address] [address] [address] Bridger Aggarwal RBC 4.50 106/ul Critically low 4.70-6.10 [facility] Comment on above: Performed By: #### C BC #### [facility] [address] [place] [address] Dr. Bridger Aggarwal WBC 10.5 103/ul Normal 4.0-11.0 [facility] Comment on above: Performed By: #### C BC #### [facility] [address] [place] [address] HEAD WO CONon [...] JACOB LALA Date: 2021-12-26 13:30 Normal [facility] PROF CHEM 8 (BAS METB)on Anion gap [Moles/Vol] 17.1 mmol/L Normal [facility] Comment on above: Performed By: #### A 1C #### [facility] [address] [place] [address] Dr. Bridger Aggarwal Calcium [Mass/Vol] 9.4 mg/dL Normal 8.5-10.1 [facility] Comment on above: Performed By: #### A 1C #### [facility] [address] [place] [address] Dr. Bridger Aggarwal Chloride [Moles/Vol] 97 mmol/L Critically low 98-107 [facility] Comment on above: Performed By: #### A 1C #### [facility] [address] [place] [address] Dr. Bridger Aggarwal CO2 [Moles/Vol] 20.6 mmol/L Critically low 21.0-32.0 [facility] Comment on above: Performed By: #### A 1C #### [facility] [address] [place] [address] Dr. Bridger Aggarwal Creatinine [Mass/Vol] 0.96 mg/dL Normal 0.70-1.30 [facility] Comment on above: Performed By: #### A 1C #### [facility] [address] [place] [address] Dr. Bridger Aggarwal EGFR-AF LIBYAN >60 Normal >=60 [facility] Comment on above: Performed By: #### A 1C #### [facility] [address] [place] [address] Dr. Bridger Aggarwal EGFR-NON AF LIBYAN >60 Normal >=60 [facility] Comment on above: Performed By: #### A 1C #### [facility] [address] [place] [address] Dr. Bridger Aggarwal Glucose [Mass/Vol] 216 mg/dL Critically high 74-106 [facility] Comment on above: Performed By: #### A 1C #### [facility] [address] [place] [address] Dr. Bridger Aggarwal Potassium [Moles/Vol] 3.7 mmol/L Normal 3.5-5.1 [facility] Comment on above: Performed By: #### A 1C #### [facility] [address] [place] [address] Dr. Bridger Aggarwal Sodium [Moles/Vol] 131 mmol/L Critically low 136-145 [facility] Comment on above: Performed By: #### A 1C #### [facility] [address] [place] [address] Dr. Bridger Aggarwal Urea nitrogen [Mass/Vol] 26.0 mg/dL Critically high 7.0-18.0 [facility] Comment on above: Performed By: #### A 1C #### [facility] [address] [place] [address] Dr. Bridger Aggarwal Urea nitrogen/Creatinine [Mass ratio] 27.1 mg/mg Normal [facility] Comment on above: Performed By: #### A 1C #### [facility] [address] [place] [address] Dr. Bridger Aggarwal CBC AUTO DIFFon 12-18-2021 BASO # 0.0 103/ul Normal 0.0-0.1 [facility] Comment on above: Performed By: #### A 1C #### [facility] [address] [place] [address] Dr. Bridger Agagrwal Basophils/100 WBC (Bld) 0.4 % Normal 0.2-2.0 [facility] Comment on above: Performed By: #### A 1C #### [facility] [address] [place] [address] Dr. Bridger Aggarwal EO # 0.1 103/ul Normal 0.0-0.7 [facility] Comment on above: Performed By: #### A 1C #### [facility] [address] [place] [address] Dr. Bridger Aggarwal Eosinophils/100 WBC (Bld) 1.2 % Normal 0.9-7.0 [facility] Comment on above: Performed By: #### A 1C #### [facility] [address] [place] [address] Dr. Bridger Aggarwal Erythrocyte distribution width (RBC) [Ratio] 12.5 % Normal 11.0-15.0 [facility] Comment on above: Performed By: #### A 1C #### [facility] [address] [place] [address] Dr. Bridger Aggarwal Hematocrit (Bld) [Volume fraction] 45.9 % Normal 42.0-54.0 [facility] Comment on above: Performed By: #### A 1C #### [facility] [address] [place] [address] Dr. Bridger Aggarwal Hemoglobin (Bld) [Mass/Vol] 15.8 g/dL Normal 14.0-18.0 [facility] Comment on above: Performed By: #### A 1C #### [facility] [address] [place] [address] Dr. Bridger Aggarwal IG # 0.04 10e3/ul Critically high 0.00-0.03 [facility] Comment on above: Performed By: #### A 1C #### [facility] [address] [place] [address] Dr. Bridger Aggarwal IG % 0.5 % Normal 0.0-0.5 [facility] Comment on above: Performed By: #### A 1C #### [facility] [address] [place] [address] Dr. Bridger Aggarwal LYMPH # 1.7 103/ul Normal 1.2-3.8 [facility] Comment on above: Performed By: #### A 1C #### [facility] [address] [place] [address] Dr. Bridger Aggarwal Lymphocytes/100 WBC (Bld) 22.3 % Normal 20.5-60.0 [facility] Comment on above: Performed By: #### A 1C #### [facility] [address] [place] [address] Dr. Bridger Aggarwal MANUAL DIFF REQ NO Normal [facility] Comment on above: Performed By: #### A 1C #### [facility] [address] [place] [address] Dr. Bridger Aggarwal MCH (RBC) [Entitic mass] 34.3 pg Critically high 25.9-34.0 [facility] Comment on above: Performed By: #### A 1C #### [facility] [address] [place] [address] Dr. Bridger Aggarwal MCHC (RBC) [Mass/Vol] 34.4 g/dL Normal 29.9-35.2 [facility] Comment on above: Performed By: #### A 1C #### [facility] [address] [place] [address] Dr. Bridger Aggarwal MCV (RBC) [Entitic vol] 99.6 fL Critically high 80.0-94.0 [facility] Comment on above: Performed By: #### A 1C #### [facility] [address] [place] [address] Dr. Bridger Aggarwal MONO # 0.7 103/ul Normal 0.3-0.8 [facility] Comment on above: Performed By: #### A 1C #### [facility] [address] [place] [address] Dr. Bridger Aggarwal Monocytes/100 WBC (Bld) 8.6 % Normal 1.7-12.0 [facility] Comment on above: Performed By: #### A 1C #### [facility] [address] [place] [address] Dr. Bridger Aggarwal NEUT # 5.2 103/ul Normal 1.4-6.5 [facility] Comment on above: Performed By: #### A 1C #### [facility] [address] [place] [address] Dr. Bridger Aggarwal Neutrophils/100 WBC (Bld) 67.0 % Normal 43.0-75.0 [facility] Comment on above: Performed By: #### A 1C #### [facility] [address] [place] [address] Dr. Bridger Aggarwal Platelet mean volume (Bld) [Entitic vol] 9.4 fL Critically low 9.5-13.5 [facility] Comment on above: Performed By: #### A 1C #### [facility] [address] [address] [address] Bridger Aggarwal PLT 259 103/ul Normal 150-450 [facility] Comment on above: Performed By: #### A 1C #### [facility] [address] [address] [address] Bridger Aggarwal RBC 4.61 106/ul Critically low 4.70-6.10 [facility] Comment on above: Performed By: #### A 1C #### [facility] [address] [address] [address] Bridger Aggarwal WBC 7.8 103/ul Normal 4.0-11.0 [facility] Comment on above: Performed By: #### A 1C #### [facility] [address] [place] [address] Dr. Bridger Aggarwal FREE T3on 12-18-2021 FREE T3 2.71 pg/mlL Normal 2.18-3.98 [facility] Comment on above: Performed By: #### C MP, T4, FT3, TSH, LIPID #### [facility] [address] [address] [address] Bridger Aggarwal GLYCOHEMOGLOBIN A1Con 2021 ADA RECOMMENDATION SEE BELOW Normal [facility] Comment on above: Result Comment: ADA RECOMMENDED LIMIT 4.0 - 6.0 ADA THERAPEUTIC TARGET < 7.0 ACTION SUGGESTED > 7.0 Performed By: #### A 1C #### [facility] [address] [place] [address] Dr. Bridger Aggarwal Glucose [Mass/Vol] 197 mg/dL Normal [facility] Comment on above: Performed By: #### A 1C #### [facility] [address] [address] [address] Bridger Aggarwal HbA1c (Bld) [Mass fraction] 8.5 % Critically high 4.5-6.2 [facility] Comment on above: Performed By: #### A 1C #### [facility] [address] [place] [address] Dr. Bridger Aggarwal LIPID PROFILEon 12-18-2021 CHOL-HDL RATIO NORM SEE BELOW Normal [facility] Comment on above: Result Comment: 3.3 - 4.4 LOW RISK 4.4 - 7.1 AVERAGE RISK 7.1 - 11.0 MODERATE RISK >11.0 HIGH RISK Performed By: #### C MP, T4, FT3, TSH, LIPID #### [facility] [address] [address] [address] Bridger Aggarwal Cholesterol [Mass/Vol] 157 mg/dL Normal <=200 [facility] Comment on above: Performed By: #### C MP, T4, FT3, TSH, LIPID #### [facility] [address] [address] [address] Bridger Aggarwal Cholesterol in HDL [Mass/Vol] 46 mg/dL Normal 40-60 [facility] Comment on above: Performed By: #### C MP, T4, FT3, TSH, LIPID #### [facility] [address] [place] [address] Dr. Bridger Aggarwal Cholesterol in LDL [Mass/Vol] 85.8 mg/dL Normal [facility] Comment on above: Performed By: #### C MP, T4, FT3, TSH, LIPID #### [facility] [address] [address] [address] Bridger Aggarwal Cholesterol.total/C holesterol in HDL [Mass ratio] 3.4 {ratio} Normal [facility] Comment on above: Performed By: #### C MP, T4, FT3, TSH, LIPID #### [facility] [address] [place] [address] Dr. Bridger Aggarwal HDL NORMAL > or = 60 mg/dl - LO W CARDIOVASCULAR RISK <40 mg/dl - HIGH CARDIOVASCULAR RISK Normal [facility] Comment on above: Performed By: #### C MP, T4, FT3, TSH, LIPID #### [facility] [address] [place] [address] Dr. Bridger Aggarwal LDL CALC NORMAL SEE BELOW Normal [facility] Comment on above: Result Comment: <100 mg/dl OPTIMAL 100 - 129 mg/dl NEAR OR ABOVE OPTIMAL 130 - 159 mg/dl BORDERLINE HIGH 160 - 189 mg/dl HIGH >190 mg/dl VERY HIGH Performed By: #### C MP, T4, FT3, TSH, LIPID #### [facility] [address] [address] [address] Bridger Aggarwal Triglyceride [Mass/Vol] 126 mg/dL Normal <=150 [facility] Comment on above: Performed By: #### C MP, T4, FT3, TSH, LIPID #### [facility] [address] [address] [address] Bridger Aggarwal VLDL CALC 25.2 mg/dL Normal [facility] Comment on above: Performed By: #### C MP, T4, FT3, TSH, LIPID #### [facility] [address] [place] [address] Dr. Bridger Aggarwal OCC BLD IMMUNO SCREENon 12-06 OCCULT BLOOD Negative Normal NEGATIVE [facility] Comment on above: Performed By: #### O BSCRN #### [facility] [address] [place] [address] Dr. Bridger Aggarwal PROF 14(COMP METB)on 022 Albumin [Mass/Vol] 3.6 g/dL Normal 3.4-5.0 [facility] Comment on above: Performed By: #### C MP, T4, FT3, TSH, LIPID #### [facility] [address] [place] [address] Dr. Bridger Aggarwal Albumin/Globulin [Mass ratio] 0.9 {ratio} Normal [facility] Comment on above: Performed By: #### C MP, T4, FT3, TSH, LIPID #### [facility] [address] [place] [address] Dr. Bridger Aggarwal ALP [Catalytic activity/Vol] 84 U/L Normal 46-116 [facility] Comment on above: Performed By: #### C MP, T4, FT3, TSH, LIPID #### [facility] [address] [place] [address] Dr. Bridger Aggarwal ALT [Catalytic activity/Vol] 45 U/L Normal 16-63 [facility] Comment on above: Performed By: #### C MP, T4, FT3, TSH, LIPID #### [facility] [address] [place] [address] Dr. Bridger Aggarwal Anion gap [Moles/Vol] 12.1 mmol/L Normal [facility] Comment on above: Performed By: #### C MP, T4, FT3, TSH, LIPID #### [facility] [address] [place] [address] Dr. Bridger Aggarwal AST [Catalytic activity/Vol] 20 U/L Normal 15-37 [facility] Comment on above: Performed By: #### C MP, T4, FT3, TSH, LIPID #### [facility] [address] [place] [address] Dr. Bridger Aggarwal Bilirubin [Mass/Vol] 0.6 mg/dL Normal 0.2-1.0 [facility] Comment on above: Performed By: #### C MP, T4, FT3, TSH, LIPID #### [facility] [address] [place] [address] Dr. Bridger Aggarwal Calcium [Mass/Vol] 9.1 mg/dL Normal 8.5-10.1 [facility] Comment on above: Performed By: #### C MP, T4, FT3, TSH, LIPID #### [facility] [address] [place] [address] Dr. Bridger Aggarwal Chloride [Moles/Vol] 100 mmol/L Normal 98-107 [facility] Comment on above: Performed By: #### C MP, T4, FT3, TSH, LIPID #### [facility] [address] [place] [address] Dr. Bridger Aggarwal CO2 [Moles/Vol] 28.4 mmol/L Normal 21.0-32.0 [facility] Comment on above: Performed By: #### C MP, T4, FT3, TSH, LIPID #### [facility] [address] [place] [address] Dr. Bridger Aggarwal Creatinine [Mass/Vol] 0.99 mg/dL Normal 0.70-1.30 [facility] Comment on above: Performed By: #### C MP, T4, FT3, TSH, LIPID #### [facility] [address] [place] [address] Dr. Bridger Aggarwal EGFR-AF LIBYAN >60 Normal >=60 [facility] Comment on above: Performed By: #### C MP, T4, FT3, TSH, LIPID #### [facility] [address] [place] [address] Dr. Bridger Aggarwal EGFR-NON AF LIBYAN >60 Normal >=60 [facility] Comment on above: Performed By: #### C MP, T4, FT3, TSH, LIPID #### [facility] [address] [address] [address] Bridger Aggarwal Globulin (S) [Mass/Vol] 3.8 g/dL Normal [facility] Comment on above: Performed By: #### C MP, T4, FT3, TSH, LIPID #### [facility] [address] [place] [address] Dr. Bridger Aggarwal Glucose [Mass/Vol] 260 mg/dL Critically high 74-106 T [facility] Comment on above: Performed By: #### C MP, T4, FT3, TSH, LIPID #### [facility] [address] [place] [address] Dr. Bridger Aggarwal Potassium [Moles/Vol] 4.5 mmol/L Normal 3.5-5.1 [facility] Comment on above: Performed By: #### C MP, T4, FT3, TSH, LIPID #### [facility] [address] [place] [address] Dr. Bridger Aggarwal Protein [Mass/Vol] 7.4 g/dL Normal 6.4-8.[address] [facility] Comment on above: Performed By: #### C MP, T4, FT3, TSH, LIPID #### [facility] [address] [place] [address] Dr. Bridger Aggarwal Sodium [Moles/Vol] 136 mmol/L Normal 136-145 [facility] Comment on above: Performed By: #### C MP, T4, FT3, TSH, LIPID #### [facility] [address] [place] [address] Dr. Bridger Aggarwal Urea nitrogen [Mass/Vol] 17.0 mg/dL Normal 7.0-18.0 [facility] Comment on above: Performed By: #### C MP, T4, FT3, TSH, LIPID #### [facility] [address] [address] [address] Bridger Aggarwal Urea nitrogen/Creatinine [Mass ratio] 17.2 mg/mg Normal [facility] Comment on above: Performed By: #### C MP, T4, FT3, TSH, LIPID #### [facility] [address] [place] [address] Dr. Bridger Aggarwal T4on 12-18-2021 T4 [Mass/Vol] 4.80 ug/dL Normal 4.50-12.10 [facility] Comment on above: Performed By: #### C MP, T4, FT3, TSH, LIPID #### [facility] [address] [place] [address] Dr. Bridger Aggarwal TSHon 12-18-2021 TSH 1.496 uIU/mL Normal 0.358-3.740 [facility] Comment on above: Performed By: #### C MP, T4, FT3, TSH, LIPID #### [facility] [address] [place] [address] Dr. Bridger Aggarwal TSH RANGE SEE BELOW Normal [facility] Comment on above: Result Comment: <0.3 4 UIU/ml HYPERTHYROID 0.34-5.60 UIU/ml EUTHYROID >5.60 UIU/ml HYPOTHYROID Performed By: #### C MP, T4, FT3, TSH, LIPID #### [facility] [address] [place] [address] Dr. Bridger Aggarwal Encounters Encounter Date Encounter Type Care Provider Facility Start: 12-05-2023 End: 12-05-2023 ambulatory [facility] Start: 10-13-2023 End: 10-13-[address] [facility] Start: 10-06-2023 Evaluation and management of inpatient DESTINEE COSTA [facility] Start: 10-05-2023 End: 10-09-2023 Evaluation and management of inpatient ADARSH HALL [facility] Start: 08-10-2022 End: 08-10-2022 ambulatory [...] without abnormal findings DR ADARSH HALL [facility] Start: 12-18-2021 End: 12-19-[address] ADARSH HALL Facility:[facility] Start: 12-18-2021 End: 12-19-2021 Encounter for general adult medical examination without abnormal findings DR ADARSH HALL Facility:[facility] Procedures Date Procedure Procedure Detail Performing Clinician Start: 12-18-[address] GREG HALL Comment on above: Performed By: #### P [facility] #### [facility] [address] [place] [address] Dr. Bridger Aggarwal Payers Date Payer Category Payer Unknown [id number] .. [id number] 1975 Unknown [id number] 2..84 [id number] 1975 Unknown [id number] 2..84 [id number] 1973 Unknown [id number] 2.16.84 [id number] 1973 Unknown [id number] 2..84 [id number] 1973 Unknown [id number] 2.16.84 [id number] 1973 Unknown [id number] 2.16.84 [id number] 1973 Unknown [id number] 2.16.84 [id number] 1961 Private Health Insurance [id number] 1961 Unknown [id number] Clinical Notes 10-05-2023 to 12-05-2023 Note Date & Type Note Facility 12-05-2023 Note [facility] Cardiology Clinic Note Chief Complaint: Patient [...] disease- nonobstructive with sluggish coronary flow on [facility] 10/07/23 Hypertension Type 2 DM with [...] obesity, LARS, tobacco dependence intially presents to [facility] after sudden onset SOB. He woke [...] 37.66 kg/m??? P (more content not included)... [facility] 10-13-2023 Note Cardiovascular Medic [facility] SUBJECTIVE Chief Complaint Patient presents [...] disease- nonobstructive with sluggish coronary flow on [facility] 10/07/23 Hypertension Type 2 DM with [...] obesity, LARS, tobacco dependence intially presents to [facility] after sudden onset SOB. He woke [...] Heart failure (CMS/HCC) Coronary artery disease involving levelock coronary artery of levelock heart without angina pectoris Benign hypertensive heart [...] at bedtime., Disp: (more content not included)... [facility] 10-13-2023 Note Patient here for [facility] for new onset CHF. He underwent heart cath on 10/07/[address] Herrera. Was discharged with a LifeVest. He has completely stopped smoking and drinking alcohol. Denies chest pain, SOB, palpitations, and lightheadedness/syncope. Review of Systems All other systems reviewed and are negative. [facility] 10-09-2023 Note Patient discharged v ia private ride with . Patient educated on discharge and educated on heart failure education. All questions and concerns addressed at this time. [facility] 10-09-2023 Note 10/09/23 1403 CM Interventions CM Interventions Other (Comment) Follow up appointment for GI Clinic was scheduled for patient for tomorrow, however, per Epic chart, patient has already cancelled. Dr Costa notified [facility] 10-09-2023 Note Awaiting life vest a pproval and fitting. OTM will continue to follow. 1200: Life Vest approved. Awaiting RN for fitting. [facility] 10-09-2023 Note Hospital Medicine Discharge Summary Final Discharge Diagnosis: New onset heart failure with reduced EF, 20-25%, NYHA I, with global hypokinesis NICMP Coronary artery disease- nonobstructive with sluggish coronary flow on [facility] 10/07/23 Hypertension Type 2 DM with [...] obesity, LARS, tobacco dependence intially presents to [facility] after sudden onset SOB. He woke [...] was discharged home. Dear Dr. Rafael MD Morrow is advised to follow up with you [...] Medications These medications were sent to [facility] - [place], [place] - [address] [place] [address], [facility] [address] aspirin 81 mg chewable tablet atorvastatin 80 [...] (!) 129/100, pulse (more content not included)... 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 Facesheet & cardiology progress note faxed to [facility] to initiate life ves referral. Awaiting approval / denial and next steps before patient can discharge. UPDATE: Manager [employer] reached out to Dakota who reports he is still waiting for insurance approval for life vest. This information was shared with physician, bedside nurse, and social media marketing specialist. Dakota reports if he is approved today, he will attempt to get patient fitted for his life vest today as well. OTM team continuing to follow. [facility] 10-08-2023 Note Hospital Medicine Discharge Summary Final Discharge Diagnosis: New onset heart failure with reduced EF, 20-25%, NYHA I, with global hypokinesis NICMP Coronary artery disease- nonobstructive with sluggish coronary flow on [facility] 10/07/23 Hypertension Type 2 DM with A1C 8% Dyslipidemia Alcohol abuse Tobacco dependence Circumferential esophageal thickening-Outpatient GI Fup for concern of EGD, has hx of reflux, Cont PPI therapy Bilateral groundglass opacities and hilar lymphadenopathy. Be infectious versus inflammatory. Flu PCR and COVID-negative. Admission Diagnosis: Heart failure (CMS/[facility]) [I50.9] Hospital course: Tera Roberto is a 48 y.o. male with a PMH significant for T2DM, HTN, obesity, LARS, tobacco dependence intially presents to [facility] after sudden onset SOB. He woke [...] Medications These medications were sent to [facility] - [place], [place] - [facility] [address], [facility] [address] aspirin 81 mg chewable tablet atorvastatin 80 [...] time of di (more content not included)... [facility] 10-08-2023 Note UTP CARDIOLOGY PROGR [...] lock IV AND sodium chloride CV Testing: [facility] 10/07/23: FINAL IMPRESSIONS: Angiographically nonobstructive coronary [...] a beta-nabila, a (more content not included)... [facility] 10-08-2023 Note Hospital Medicine Daily Progress Note - 10/09/2023 7:16 AM; Room: [address] [place] [address] Admission: 10/05/2023 7:45 PM; Length of stay: 4 days THE HOSPITALIST TEAM PREFERS TO USE [employer] CHAT FOR COMMUNICATION 7AM-7PM. IF I DO NOT RESPOND WITHIN 15 MINUTES, PLEASE PAGE ME/CALL THROUGH THE PARKING ENFORCER. FROM 7PM-7AM, PLEASE PAGE [phone](COVR) Code Status: Full Code Barriers to Discharge: [...] Problems Principal Problem: Heart failure ([facility]) Assessment and Plan Acute hypoxemic [...] Academy of Nutrition and Dietetics and the [place] [employer] of Enteral and Parenteral Nutrition, meets [...] LDL 178 10/06/2023 No results found for: [id number] , IRON , TIBC , C3 , [...] beta-nabila, a RAA (more content not included)... [facility] 10-07-2023 Note Clinical Therapist B [facility] Intervention Note Substance Intervention: Raise the [...] brief intervention. Assessment completed by: DELMA Morgan [facility] 10-07-2023 Note Cardiovascular Labor atory [...] internal jugular vein was obtained. A 6 Pashto 11 cm sheath was inserted without difficulty. [...] left radial artery was obtained. A 6 Pashto glide sheath was inserted without difficulty. Bilateral [...] fraction, exertional shortness of breath, abnormal echocardiogram [facility] 10-07-2023 Note ---- Attestation signed [...] Value Ventricular Rate 88 Atrial Rate 88 LA Interval 162 QRS DURATION 84 QT Interval 404 QTC CALCULATION(BAZETT) 488 P [place] 50 R-[place] 0 T Wave [place] 61 Impression Sinus rhythm with occasional Premature ventricular complexes Left ventricular hypertrophy ( R in aVL ) Prolonged QT Abnormal ECG No previous ECGs available Confirmed by Daily MENDEZ, L.S. (2) on 10/06/2023 11:01:33 AM Lab Results Component Value Date TROPONINI 0.03 10/06/2023 Transthoracic echo (TTE) limited Result Date: 10/06/2023 1 1 [facility] Heart Station [address] [place], [place] [id number] (fax) Echocardiogram-[facility] Name: TERA ROBERTO Study Date: 10/06/2023 10:25 AM B/P: 153 mmHg/104 mmHg HR: 96 bpm Date of : 1975 Location: [facility] Height: 69 in. Age: 48 [...] No pericardial effusion. Procedure Staff Reading Group: [facility] Referring Physician: Keith Edwards Director Machine: Zina Altamirano [facility] Ordering Physician: DESTINEE COSTA No nuclear medicine results found for the past 12 months Relevant Imaging Results Transthoracic echo (TTE) limited 1 1 [facility] [address] [place] [address] [phone] (fax) Echocardiogram-[facility] Name: TERA ROBERTO Study Date: 10/06/2023 10:25 AM B/P: (more content not included)... [facility] 10-07-2023 Note Clinician attempted to provide AOD brief intervention. Physician at bedside with pt. Clinician will make another attempt [facility] 10-07-2023 Note Hospital Medicine Daily Progress Note - 10/07/2023 9:30 AM; Room: [address] [place] [address] Admission: 10/05/2023 7:45 PM; Length of stay: 2 days THE HOSPITALIST TEAM PREFERS TO USE [employer] CHAT FOR COMMUNICATION 7AM-7PM. IF I DO NOT RESPOND WITHIN 15 MINUTES, PLEASE PAGE ME/CALL THROUGH THE PARKING ENFORCER. FROM 7PM-7AM, PLEASE PAGE [phone](COVR) Code Status: Full Code Barriers to Discharge: [...] Problems Principal Problem: Heart failure ([facility]) Assessment and Plan Acute hypoxemic [...] Academy of Nutrition and Dietetics and the [place] [employer] of Enteral and Parenteral Nutrition, meets [...] LDL 178 10/06/2023 No results found for: [id number] , IRON , TIBC , C3 , C4 , DANTE , CANCA , ASO , PSA , CEA , CA125 , CA199 , AFP , CA153 Imaging Transthoracic echo (TTE) limited 1 1 [facility] Heart [facility] [address] [place] [address] [phone] (fax) Echocardiogram-[facility] Name: TERA ROBERTO Study Date: 10/06/2023 10:25 AM B/P: 153 mmHg/104 mmHg HR: 96 bpm Date of : 1975 Location: [facility] Height: 69 in. Age: 48 year(s) Patient Room: [facility] Weight: 255 lb. Gender: Male Patient [...] is estimated at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
== END 2024-10-05 09:49 | disposition home or self-care (01) ==
LOC: CT 09:50
PROVIDERS: PCP Family Medicine; Visit Provider Family Medicine
DX: R07.9 Chest pain, unspecified (principal); J90 Pleural effusion, not elsewhere classified; S22.42XD Multiple fractures of ribs, left side, subsequent encounter for fracture with routine healing
CPT/HCPCS: 71250

== ENCOUNTER 2024-12-03 12:47 | Outpatient (OUT) | payer OTHER, SELFPAY ==
--- NOTE | 2024-12-03 14:13 | PM.CN ---
Consult Note: HPI Data of Consult Patient: new to practice Consult date: 12/03/24 Requesting Physician: Esther Hernández MD Primary Care Provider: Donn Hall MD Consult Narrative Reason for consult: left chest pain, low back pain Narrative: 49yom who presents for evaluation. notes left chest pain after fall several months ago. noted to have fractures from T5-8. has not been able to work because of the pain. has used percocet on occasion, which helps. also uses tylenol and tizanidine. notes worsening low back pain after fall, no imaging. cc:: CC: Esther Hernández MD Review of Systems ROS Status of ROS 10 or more systems reviewed and unremarkable except as noted in history and below PFSH PFS Medical History Depression ?F32.A - Depression, unspecified (ICD-10) Intractable pain ?R52 - Pain, unspecified (ICD-10) Multiple fractures of ribs ?S22.49XA - Multiple fractures of ribs, unspecified side, initial encounter for closed fracture (ICD-10) Chest wall pain ?R07.89 - Other chest pain (ICD-10) Diabetes type 2 ?E11.9 - Type 2 diabetes mellitus without complications (ICD-10) Hypertension ?I10 - Essential (primary) hypertension (ICD-10) Pneumonitis ?J98.4 - Other disorders of lung (ICD-10) Chest pain ?R07.9 - Chest pain, unspecified (ICD-10) Bronchitis ?J40 - Bronchitis, not specified as acute or chronic (ICD-10) Family History Grandfather Family history of CHF (congestive heart failure) Grandmother Family history of diabetes mellitus Father Family history of hypertension Uncle Family history of stroke Social History Within the past year, how often did you have a drink containing alcohol: 4 or more times a week Within the past year, how many standard drinks containing alcohol did you have on a typical day: 1 or 2 Within the past year, how often did you have six or more drinks on one occasion: less than monthly Total score: 1 Score interpretation: A score of 4 or more indicates drinking is likely to affect patient's safety. Smoking status: Current every day smoker Non-prescribed substance use: denies use Highest level of school completed/degree received: Associate degree: occupational, technical, vocational program Are you now , , , , never or living with a partner: In a typical week, how many times do you talk on the telephone with family, friends, or neighbors: 3 or more times per week How often do you get together with friends or relatives: 3 or more times per week How often do you attend caodaism or pentecostalism services: never Do you belong to any clubs or organizations such as caodaism groups unions, [employer] or [employer] groups, or school groups: no Total score: 2 Score interpretation: A score of greater than or equal to 2 indicates the lowest level of social isolation. Little interest or pleasure in doing things: not at all Feeling down, depressed, or hopeless: not at all Feel stressed/tense/nervous/anxious/difficulty sleeping: not at all Do you think of yourself as: straight/heterosexual Gender Identity: male Meds Home Medications and Allergies Home Medications ?Medication ?Instructions ?Recorded ?Confirmed ?Type glimepiride 4 mg tablet 8 mg PO DAILY 10/05/23 09/19/24 History pioglitazone 30 mg tablet 30 mg PO DAILY 10/05/23 09/19/24 History simvastatin 20 mg tablet 20 mg PO DAILY 10/05/23 09/19/24 History venlafaxine 75 mg capsule,extended 75 mg PO DAILY 10/05/23 09/19/24 History release 24 hr aspirin 81 mg chewable tablet 1 tab PO .qd 09/17/24 09/19/24 History atorvastatin 80 mg tablet 80 mg PO .QHS 09/17/24 09/19/24 History carvedilol 6.25 mg tablet 6.25 mg PO BID 09/17/24 09/19/24 History dapagliflozin propanediol 10 mg 10 mg PO .qd 09/17/24 09/19/24 History tablet (Farxiga) sacubitril 49 mg-valsartan 51 mg 1 tab PO BID 09/17/24 09/19/24 History tablet (Entresto) spironolactone 25 mg tablet 12.5 mg PO .qd 09/17/24 09/19/24 History oxycodone-acetaminophen 5 mg-325 1 tab PO Q6H PRN pain #28 tabs 09/20/24 Rx mg tablet (Percocet) Allergies Allergy/AdvReac Type Severity Reaction Status Date / Time No Known Drug Allergies Allergy Verified 09/18/24 20:18 Exam Narrative Exam Narrative: Psych-alert and oriented x 3. Attentive and appropriate, constitutionally normal, displays normal mood and affect per situation.? There are no obvious deficits in memory, reasoning, or intellect.? Skin-no obvious rashes, bruising, erythema noted to the patient's area of pain. Extremities- extremities are warm with minimal edema and palpable pulses. Thoracic - tender to palpation in left thoracic region. no notable skin changes. Lumbar-no significant tenderness to palpation noted in the lumbar spine and paraspinal musculature.? Pain is elicited with extension, and lateral rotation of the lumbar spine. Range of motion is slightly diminished with these motions due to pain. Facet loading maneuvers are positive bilaterally and do appear to be concordant with the patient's normal complaints of pain.? Coordination remains intact.? Gait remains non-antalgic. Assessment and Plan Assessment and Plan (1) Multiple rib fractures: Qualifiers: Encounter type: initial encounter Fracture type: closed Laterality: left Qualified Code(s): S22.42XA - Multiple fractures of ribs, left side, initial encounter for closed fracture (2) Low back pain: Qualifiers: Chronicity: chronic Back pain laterality: bilateral Sciatica presence: without sciatica Qualified Code(s): M54.50 - Low back pain, unspecified; G89.29 - Other chronic pain Plan 49yom who presents for evaluation. failed conservative measures, as noted. imaging reviewed, as noted. given symptoms and imaging, prudent to attempt left T5, 6, 7 intercostal nerve blocks under fluoroscopic guidance. he is in agreement. will obtain lumbar xr for low back pain. meds reviewed, agreed to prescribe percocet when he needed refill. follow up after procedure.
== END 2024-12-03 12:48 | disposition home or self-care (01) ==
PROVIDERS: PCP Family Medicine; Visit Provider Anesthesiology
DX: S22.42XA Multiple fractures of ribs, left side, initial encounter for closed fracture (principal); M54.50 Low back pain, unspecified; G89.29 Other chronic pain
CPT/HCPCS: 72110; 72220; G0463

== ENCOUNTER 2024-12-03 14:02 | Outpatient (OUT) | payer OTHER, SELFPAY ==
--- NOTE | 2024-12-03 14:11 | XR_ITS ---
[address] [address] Patient Name: TERA ROBERTO MRN: [id number] date: 1975 Sex: M Assigned Patient Location: [facility] Current Patient Location: PM Accession/Order Number: [id number] Exam Date: 12/03/2024 16:05 Report Date: 12/03/2024 16:06 At the request of: LEE LÓPEZ MD Procedure: XR sacrum coccyx min 2V SACRUM AND COCCYX - - 6 views CLINICAL HISTORY: Lumbago COMPARISON: None FINDINGS: Mild degenerative changes of the SI joints. Sacral foramina appear intact. No displaced coccygeal fracture. XR/XR sacrum coccyx min 2V IMPRESSION: MILD DEGENERATIVE CHANGES INVOLVING THE SI JOINTS WITHOUT ACUTE BONY PROCESS. Impression dictated by: Wei Varma Jr., D.O. 12/03/2024 4:06 PM Dictation Location: [place] [address] Electronically authenticated by: [id number] Y Date: 12/03/2024 16:06
--- NOTE | 2024-12-03 14:11 | XR_ITS ---
The [place] [address] Patient Name: TERA ROBERTO MRN: [id number] date: 1975 Sex: M Assigned Patient Location: [facility] Current Patient Location: PM Accession/Order Number: [id number] Exam Date: 12/03/2024 16:04 Report Date: 12/03/2024 16:05 At the request of: LEE LÓPEZ MD Procedure: XR lumbar spine min 4V LUMBAR SPINE - 5 views CLINICAL HISTORY: Lumbago COMPARISON: Lumbar spine 07/28/2019 FINDINGS: Vertebral body heights appear maintained. Scattered endplate and facet joint degenerative changes with moderate disc space L5-S1. XR/XR lumbar spine min 4V IMPRESSION: DEGENERATIVE CHANGES INVOLVING THE LUMBAR SPINE WITH MODERATE DISC SPACE NARROWING L5-S1. FINDINGS ARE SIMILAR TO THE PRIOR STUDY. Impression dictated by: Wei Varma Jr., D.O. 12/03/2024 4:05 PM Dictation Location: [place] [address] Electronically authenticated by: [id number] Y Date: 12/03/2024 16:05
== END 2024-12-03 14:03 | disposition home or self-care (01) ==
LOC: RAD 14:06
PROVIDERS: PCP Family Medicine; Visit Provider Anesthesiology
DX: M54.50 Low back pain, unspecified (principal)
CPT/HCPCS: 72110; 72220

== ENCOUNTER 2024-12-10 06:52 | Day surgery (SDC) | payer OTHER, SELFPAY ==
[2024-12-10 07:13] VITALS: BP 136/94; PULSE 95; TEMP 37; O2SAT 97
[2024-12-10 07:35] LABS: Glucometer 185 mg/dL (74-106)
[2024-12-10 07:56] VITALS: BP 157/74; BP 159/76; PULSE 89; PULSE 90; O2SAT 95; O2SAT 97
[2024-12-10] MEDS: METHYLPREDNISOLONE ACETATE 40 MG/ML VIAL IM (07:59)
[2024-12-10] MEDS: BUPIVACAINE HCL 0.25% PF 25 MG/10 ML VIAL 5 ML INJ (07:59)
[2024-12-10] MEDS: LIDOCAINE HCL 2% 400 MG/20 ML MDV INJ (07:59)
--- NOTE | 2024-12-10 08:02 | W.PM.PROCNOT ---
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 A timeout was completed verifying the correct patient, procedure site, position, and special equipment.? The left fifth rib was contacted with the needle tip 1 cm lateral to the costotransverse junction and the needle tip was walked caudally.? Omnipaque dye was injected to show adequate spread.? The above-mentioned injectate was placed in 1 mL aliquots and the procedure was repeated at the left sixth and seventh ribs.? The patient tolerated the procedures well and was found suitable for discharge in the accompaniment of a responsible adult. Anesthesia: Local Surgeon: Esther Hernández Pathology: none sent Condition: stable Disposition: no change
== END 2024-12-10 08:08 | disposition home or self-care (01) ==
LOC: SURGOUT 06:53
PROVIDERS: PCP Family Medicine; Visit Provider Anesthesiology
DX: G58.0 Intercostal neuropathy (principal)
CPT/HCPCS: 36415; 64420; 64421; 82948; J0665; J1010

== ENCOUNTER 2024-12-20 14:06 | Outpatient (OUT) | payer OTHER, SELFPAY ==
--- NOTE | 2024-12-20 14:42 | PM.CN ---
Consult Note: HPI Data of Consult Patient: known to practice within the last 3 years Requesting Physician: Hailey Prakash NP Primary Care Provider: Donn Hall MD Consult Narrative Reason for consult: f/u Narrative: Isaiah Obrien a pleasant 49 year old male presents for evaluation of chronic severe thoracic and lumbar pain. recently underwent left T5,6,7 intercostal nerve block with 100% improvement while anesthetized and ongoing. pain in thoracic spine 0/10, pain in lumbar spine 3/10 increasing to 8/10 with standing, walking, mowing, lifting, twisting. denies numbness tingling weakness to BLE. pt has failed to benefit from > 6 weeks of PT and provider guided HEP, heat, ice, tylenol, nsaids. utilizes diclofenac 75mg daily, tylenol prn, tizanidine prn, percocet prn with benefit without side effects. cc:: CC: Hailey Prakash NP Review of Systems ROS Status of ROS 10 or more systems reviewed and unremarkable except as noted in history and below Musculoskeletal Reports: back pain PFSH PFSH Medical History Depression ?F32.A - Depression, unspecified (ICD-10) Intractable pain ?R52 - Pain, unspecified (ICD-10) Multiple fractures of ribs ?S22.49XA - Multiple fractures of ribs, unspecified side, initial encounter for closed fracture (ICD-10) Chest wall pain ?R07.89 - Other chest pain (ICD-10) Diabetes type 2 ?E11.9 - Type 2 diabetes mellitus without complications (ICD-10) Hypertension ?I10 - Essential (primary) hypertension (ICD-10) Pneumonitis ?J98.4 - Other disorders of lung (ICD-10) Chest pain ?R07.9 - Chest pain, unspecified (ICD-10) Bronchitis ?J40 - Bronchitis, not specified as acute or chronic (ICD-10) Family History Grandfather Family history of CHF (congestive heart failure) Grandmother Family history of diabetes mellitus Father Family history of hypertension Uncle Family history of stroke Social History Within the past year, how often did you have a drink containing alcohol: 4 or more times a week Within the past year, how many standard drinks containing alcohol did you have on a typical day: 1 or 2 Within the past year, how often did you have six or more drinks on one occasion: less than monthly Total score: 1 Score interpretation: A score of 4 or more indicates drinking is likely to affect patient's safety. Smoking status: Current every day smoker Non-prescribed substance use: denies use Highest level of school completed/degree received: Associate degree: occupational, technical, vocational program Are you now , , , , never or living with a partner: In a typical week, how many times do you talk on the telephone with family, friends, or neighbors: 3 or more times per week How often do you get together with friends or relatives: 3 or more times per week How often do you attend sikhism or christian services: never Do you belong to any clubs or organizations such as sikhism groups unions, [employer] or athletic groups, or school groups: no Total score: 2 Score interpretation: A score of greater than or equal to 2 indicates the lowest level of social isolation. Little interest or pleasure in doing things: not at all Feeling down, depressed, or hopeless: not at all Feel stressed/tense/nervous/anxious/difficulty sleeping: not at all Do you think of yourself as: straight/heterosexual Gender Identity: male Meds Home Medications and Allergies Home Medications ?Medication ?Instructions ?Recorded ?Confirmed ?Type glimepiride 4 mg tablet 4 mg PO DAILY 10/05/23 12/10/24 History venlafaxine 75 mg capsule,extended 75 mg PO DAILY 10/05/23 12/10/24 History release 24 hr aspirin 81 mg chewable tablet 1 tab PO .qd 09/17/24 12/10/24 History carvedilol 6.25 mg tablet 6.25 mg PO BID 09/17/24 12/10/24 History sacubitril 49 mg-valsartan 51 mg 1 tab PO BID 09/17/24 12/10/24 History tablet (Entresto) spironolactone 25 mg tablet 12.5 mg PO .qd 09/17/24 12/10/24 History oxycodone-acetaminophen 5 mg-325 1 tab PO BID PRN pain #60 tabs 12/03/24 12/10/24 Rx mg tablet (Percocet) acetaminophen-pamabrom 500 mg-25 1 tab PO Q6H 12/05/24 12/10/24 History mg tablet atorvastatin 80 mg tablet 80 mg PO DAILY 12/05/24 12/10/24 History diclofenac sodium 75 mg 75 mg PO BID 12/05/24 12/10/24 History tablet,delayed release empagliflozin 10 mg tablet 10 mg PO DAILY 12/05/24 12/10/24 History (Jardiance) pantoprazole 40 mg tablet,delayed 40 mg PO BID 12/05/24 12/10/24 History release tizanidine 4 mg capsule 4 mg PO Q6H PRN muscle spasticity 12/05/24 12/10/24 History Allergies Allergy/AdvReac Type Severity Reaction Status Date / Time No Known Drug Allergies Allergy Verified 09/18/24 20:18 Exam Constitutional Documenting provider has reviewed patient's vital signs: yes Common normals: no apparent distress, oriented x3, healthy appearing, alert and well nourished General appearance: cooperative HENMT Common normals: normocephalic, hearing grossly normal bilaterally and moist oral mucous membranes Head and scalp: normocephalic Eye Common normals: PERRL Pupil: PERRL Neck & C-Spine Common normals: full ROM General: normal visual inspection Chest Common normals: inspection of chest normal Respiratory Common normals: normal respiratory effort, no retractions and no use of accessory muscles Back & Pelvis Thoracic spine/upper back: thoracic ROM normal; no pain with ROM and no thoracic spinal tenderness Lumbar spine/lower back: ROM limited, pain with ROM and lumbar spinal tenderness Extremity Common normals: normal to inspection and full ROM Neuro Common normals: oriented x3 Sensorium/orientation: alert Psych Common normals: mental status grossly normal, thought process normal, cooperative, affect normal, speech normal and activity/motor behavior normal Speech: normal speech Thought process: normal thought process Results Additional Findings Additional findings: If on a controlled substance or opioids, I have checked an [place] report on this patient and there are no aberrancies noted in the prescribing history.??If on a controlled substance or opioid a drug screen was completed and reviewed within the last year, and if there has not been a drug screen completed we ordered one today to monitor higher risk, state monitored pain medication use. As part of providing excellent, safe, comprehensive care, the following was completed at our patient's visit: 1. A medication reconciliation and review to ensure accurate knowledge of current/active medications, including asking our patients to inform us about any [id number] medications or herbal remedies/nutritional supplements/alternative remedies. 2. A review to specifically ensure our patients have had annual screening for screening for depression, screening for tobacco use, and screening for unhealthy alcohol use. For concerning screenings had a discussion with the patient, provided patient education, and recommended follow-up with primary care provider when appropriate. If patient noted with a risk of falling, they received education on strength, gait, and balance training to prevent future risk of falling. Portions of this note may have been carried over from the previous visit and updated as appropriate. Please note this office utilizes paper charting in addition to the electronic medical record. A list of current medications, vitals, and PMH is available there as the clinical staff outside of myself do not have access to [facility] charting during the clinic day operations. As part of providing quality comprehensive care the current medications, vitals, and PMH were reviewed in the paper chart. Assessment and Plan Assessment and Plan (1) Lumbar spondylosis: Assessment and Plan: The patient has had over 3 months of moderate to severe low back pain with functional impairment and inadequate response to conservative care including NSAIDS (unless there are contraindication such as concurrent blood thinners), multiple oral or topical pain medications, and home exercise program/physical therapy.? Patient has completed >6 weeks of guided home exercise program and/or formal physical therapy program without relief of their symptoms.? I have reviewed the imaging of the lumbar spine and no red flags were identified.? The imaging reveals radiographic findings consistent with lumbar ddd and spondylosis The Oswestry Disability Index was completed, and the patient scored a 12%.? We discussed the risks and benefits of the procedure with the patient, and we are NOT planning on using sedation as outlined in the guidelines from Medicare unless there is a documented reason that sedation would be strongly recommended.?? ?The procedure will be completed with fluoroscopic guidance.? (2) Lumbar degenerative disc disease: (3) Encounter for medication monitoring: Assessment and Plan: continue percocet 5-325 bid prn moderate to severe pain (4) Intractable pain: Assessment and Plan: significant improvement in thoracic neuralgia (5) Multiple rib fractures: Qualifiers: Encounter type: initial encounter Fracture type: closed Laterality: left Qualified Code(s): S22.42XA - Multiple fractures of ribs, left side, initial encounter for closed fracture (6) Intercostal neuralgia: Assessment and Plan: 12/10/24 left T5,6,7 intercostal nerve block >80% improvement while ansethetized and ongoing Plan bilateral L4-5 L5-S1 mbb x2 working towards rfa update uds for medication monitoring continue HEP as tolerated continue current medications f/u after each nerve block
== END 2024-12-20 14:07 | disposition home or self-care (01) ==
LOC: PM 14:06
PROVIDERS: PCP Family Medicine; Visit Provider Nurse Practitioner
DX: M47.816 Spondylosis without myelopathy or radiculopathy, lumbar region (principal); M51.369 Other intervertebral disc degeneration, lumbar region without mention of lumbar back pain or lower extremity pain; Z51.81 Encounter for therapeutic drug level monitoring; R52 Pain, unspecified; S22.42XA Multiple fractures of ribs, left side, initial encounter for closed fracture
CPT/HCPCS: G0463

== ENCOUNTER 2025-01-07 11:53 | Day surgery (SDC) | payer OTHER, SELFPAY ==
--- OUTSIDE RECORDS SUMMARY | 2025-01-07 12:14 | XMS_ITS | CCD ---
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 Name Role Phone DR ADARSH HALL Admitting Unavailable CLIFFORD, DR ALTAMIRANO Attending Unavailable ODILIAY, DR ALTAMIRANO Referring Unavailable ODILIAY, DR ALTAMIRANO Primary Care Unavailable ODILIAY, DR ALTAMIRANO Consulting Unavailable ODILIAY, DR ALTAMIRANO Admitting Unavailable HOY, DR ALTAMIRANO Attending Unavailable HOY, DR ALTAMIRANO Primary Care Unavailable HOY, DR ALTAMIRANO Consulting Unavailable ODILIAY, DR ALTAMIRANO Admitting Unavailable HOY, DR ALTAMIRANO Attending Unavailable CLIFFORD, DR ALTAMIRANO Primary Care Unavailable HOY, DR ALTAMIRANO Consulting Unavailable ODILIAY, DR ALTAMIRANO Admitting Unavailable HOY, DR ALTAMIRANO Attending Unavailable HOY, DR ALTAMIRANO Primary Care Unavailable HOY, DR ALTAMIRANO Consulting Unavailable CLIFFORD, DR ALTAMIRANO Admitting Unavailable HOY, DR ALTAMIRANO Attending Unavailable ODILIAY, DR ALTAMIRANO Primary Care Unavailable HOY, DR ALTAMIRANO Consulting Unavailable CLIFFORD, DR ALTAMIRANO Primary Care Unavailable MARCIAL DENSON Admitting Unavailable MARCIAL DENSON Attending Unavailable DAI, DR JACOB Gonsalves Consulting Unavailable MARCIAL DENSON Consulting Unavailable CLIFFORD, DR ALTAMIRANO Primary Care Unavailable MARIUM, DR BOLES Admitting Unavailable HAY, DR BOLES Attending Unavailable HAY, DR BOLES Consulting Unavailable CLIFFORD, DR ALTAMIRANO Admitting Unavailable CLIFFORD, DR ALTAMIRANO Attending Unavailable CLIFFORD, DR ALTAMIRANO Primary Care Unavailable CLIFFORD, DR ALTAMIRANO Consulting Unavailable AMALIA SMILEY Attending Unavailabl ADARSH Brown Referring Unavailable POLO HERRERA Attending Unavailable BENI LOPEZ Referring Unavailable Betty MARR, Esther Ro Attending Unavailable Problems Active Problems Problem Classification Problem Date Documented Date Episodic/Chronic Coronary atherosclerosis and other heart disease (2 sources) Atherosclerotic heart disease of [place] coronary artery without angina pectoris; Translations: [Atherosclerotic heart disease of [place] coronary artery without angina pectoris] Onset: 10-13-2023 Chronic Diabetes mellitus with complications (4 sources) Type 2 diabetes mellitus with hyperglycemia; Translations: [TYPE 2 DM W/HYPERGLYCEMIA] Onset: 12-28-2021 Chronic Diabetes mellitus without complication (1 source) Type 2 diabetes mellitus without complications; Translations: [TYPE 2 DM WITHOUT COMPLICATIONS] Onset: 04-26-2022 Chronic Other fractures (2 sources) Multiple fractures of ribs, left side, initial encounter for closed fracture; Translations: [Multiple fractures of ribs, left side, initial encounter for closed fracture] Onset: 11-06-2024 Episodic Other fractures (2 sources) Multiple fractures of ribs, unspecified side, initial encounter for closed fracture; Translations: [Multiple fractures of ribs, unspecified side, initial encounter for closed fracture] Onset: 11-06-2024 Episodic Other upper respiratory disease (1 source) Nasal [...] Name Value Interpretation Reference Range Facility 36on 11-12-2024 36 We received a paper request from [facility] Armando to refill spironolactone 12.5mg daily. I noticed patient has not been seen since November 2023. I LM for him to return my call. I then called his and spoke with her. She isn't sure if he's taking spironolactone or not. Upon review of Dr. Herrera's last note, he discontinued spironolactone. Paper faxed back to [facility] stating to NOT authorize refills at this time. I asked patient's to have Campbell call me later with his medication bottles in front of him so we could go over them. She told me he fell in Sep 2024 and fractured a few ribs so he's currently out of work. She'd like to wait on scheduling him a follow up at this time due to their on-going medical bills. I told her that was ok, but we still need to review his medications and make sure he has what he needs to be taking. She verbalized understanding. She will have him return my call later today. [facility] Consulton 11-06-2024 Consult [id number] Isaiah Obrien 1975 Date Provider Department Center 11/06/2024 AMALIA [place] TS [facility] Family History Problem Relation Age of Onset Heart attack Maternal Grandfather Family Status - Relation Status Age at Maternal Grandfather Level of Service:68929 AR OFFICE/OP CONSLTJ NEW/EST PT LOW MDM 30 MINUTES Reason for Visit and Comments: New Patient [632] - Nonhealing ribs, patient states that the pain radiates to left side to his back. Normal [facility] Abstracton 10-22-2024 Abstract [id number] Isaiah Obrien 1975 M [facility] Provider Department Center 10/22/2024 2020-KAILA [place] HVCTS HI HeartVAS Family History Problem Relation Age of Onset Heart attack Maternal Grandfather Family Status - Relation Status Age at Maternal Grandfather Normal [facility] Office Visiton 12-05-2023 Follow-up visit [id number] Isaiah Obrien 1975 M [facility] Provider Department Center 12/05/2023 271-POLO HERRERA [facility] Family History Problem Relation Age of Onset Heart attack Maternal Grandfather Family Status - Relation Status Age at Maternal Grandfather Level of Service:64443 AR OFFICE/OUTPATIENT ESTABLISHED MOD MDM 30 MIN Normal [facility] 36on 12-01-2023 36 Patient informed. Normal [facility] 36on 11-29-2023 36 Please let him know his EF improved to 55%. He no longer needs to wear the LifeVest. Follow-up as scheduled. Thanks! Normal [facility] Telephoneon 11-29-2023 Telephone [id number] Isaiah Obrien 1975 M [facility] Provider Department Center 11/29/2023 Deejay-ZACK EPPERSON Family History Problem Relation Age of Onset Heart attack Maternal Grandfather Family Status - Relation Status Age at Maternal Grandfather Normal [facility] Covid-19 PCR (CVDTBH)on 07-09 SARS-CoV-2 (COVID-19) RNA NIXON+probe Ql (Unsp spec) Detected Critically abnormal NOT DETECTED The [facility] [place] Comment on above: Result Comment: This test is not yet approved or cleared by the [place] FDA. When there are no FDA-approved or cleared tests available, and other criteria are met, FDA can make tests available under an emergency access mechanism called an Emergency Use Authorization (EUA). The EUA for this test is supported by the Clinical Project Manager of Health and Human Service's (HHS's) declaration [...] used). Performed By: #### A 1C #### [facility] Laboratory [address] [place] [address] Dr. Bridger Aggarwal INFLUENZA A AND B [facility] 08-03 [facility] SEE BELOW Normal [facility] Comment on above: Result Comment: Nega tive for Flu A protein angiten. Infection due to Flu A cannot be ruled out. Flu A angiten in the sample may be below the detection limit of the test. Performed By: #### I NFLUAB #### [facility] Laboratory [address] [place] [address] Dr. Bridger Agg[facility] BEL[facility] Normal The [facility] Comment on above: Result Comment: Nega tive for Flu B protein antigen. Infection due to Flu B cannot be ruled out. Flu B antigen in the sample may be below the detection limit of the test. Performed By: #### I NFLUAB #### [facility] Laboratory [address] [place] [address] Dr. Bridger Aggarwal INFLUENZA A AG Negative Normal NEGATIVE SEE COMMENT The [facility] Comment on above: Performed By: #### I NFLUAB #### [facility] Laboratory [address] [place] [address] Dr. Bridger Aggarwal INFLUENZA B AG Negative Normal NEGATIVE SEE COMMENT The [facility] [place] Comment on above: Performed By: #### I NFLUAB #### [facility] Laboratory [address] [place] [address] Dr. Bridger Aggarwal INTERNAL CONTROLS Within Normal Limits Normal Within Normal Limits The [facility] Comment on above: Performed By: #### I NFLUAB #### [facility] Laboratory [address] [place], [place] [address] Dr. Bridger Aggarwal CULTURE WOUNDon 04-23-2022 CULTURE [...] <=0.25 S F Clindamycin <=0.25 S F Quinupristin/Dalfop ristin <=0.25 S F Linezolid 1 S F Vancomycin 1 S F Tetracycline <=1 S F Rifampicin <=0.5 S F Trimethoprim/Sulfam ethoxazole <=10 S F Oxacillin <=0.25 S F Normal The [facility] [place] Comment on above: Performed By: #### A 1C #### [facility] Laboratory [address] [place] [address] Dr. Bridger Aggarwal Covid-19 PCR (CVDTB)on 03-09 SARS-CoV-2 (COVID-19) RNA NIXON+probe Ql (Unsp spec) Not detected Normal NOT DETECTED The [facility] Comment on above: Result Comment: This test is not yet approved or cleared by the [place] FDA. When there are no FDA-approved or cleared tests available, and other criteria are met, FDA can make tests available under an emergency access mechanism called an Emergency Use Authorization (EUA). The EUA for this test is supported by the [place] of Health and Human Service's (HHS's) declaration [...] SARS-CoV-2. Performed By: #### A 1C #### [facility] Laboratory [address] [place] [address] Dr. Bridger gAgarwal Covid-19 PCR ([facility])on SARS-CoV-2 (COVID-19) RNA NIXON+probe Ql (Unsp spec) Not detected Normal NOT DETECTED The [facility] Comment on above: Result Comment: When diagnostic [...] for this test is supported by the [place] of Health and Human Service's declaration that [...] used). Performed By: #### A 1C #### [facility] Laboratory [address] [place] [address] Dr. Bridger Aggarwal T4 LABCORPon 01-01-2022 T4 [Mass/Vol] 4.7 ug/dL Normal 4.5-12.0 The [facility] Comment on above: Performed By: #### A 1C #### [facility] Laboratory [address] [place] [address] Dr. Bridger Aggarwal FREE THYROXINE INDEX T7on FTI 1.69 Normal 1.30-4.50 The [facility] [place] Comment on above: Performed By: #### A 1C #### [facility] [place] Laboratory [address] [place] [address] Dr. Bridger Aggarwal T3U 36.0 % Normal 33.0-40.0 [facility] Comment on above: Performed By: #### A 1C #### [facility] [place] Laboratory [address] [place] [address] Dr. Bridger Aggarwal T4 [Mass/Vol] 4.70 ug/dL Normal 4.50-12.10 The [facility] Comment on above: Performed By: #### A 1C #### [facility] Laboratory [address] [place] [address] Dr. Bridger Aggarwal TSHon 12-28-2021 TSH 0.969 uIU/mL Normal 0.358-3.740 [facility] Comment on above: Performed By: #### A 1C #### [facility] Laboratory [address] [place] [address] Dr. Bridger Aggarwal TSH RANGE SEE BELOW Normal The [facility] Comment on above: Result Comment: <0.3 4 UIU/ml HYPERTHYROID 0.34-5.60 UIU/ml EUTHYROID >5.60 UIU/ml HYPOTHYROID Performed By: #### A 1C #### [facility] [address] [place] [address] Dr. Bridger Aggarwal CBC AUTO DIFFon 12-26-2021 BASO # 0.0 103/ul Normal 0.0-0.1 [facility] Comment on above: Performed By: #### C BC #### [facility] Laboratory [address] [place] [address] Dr. Bridger Aggarwal Basophils/100 WBC (Bld) 0.4 % Normal 0.2-2.0 [facility] Comment on above: Performed By: #### C BC #### [facility] Laboratory [address] [place] [address] Dr. Bridger Aggarwal EO # 0.1 103/ul Normal 0.0-0.7 The [facility] Comment on above: Performed By: #### C BC #### [facility] Laboratory [address] [place] [address] Dr. Bridger Aggarwal Eosinophils/100 WBC (Bld) 0.6 % Critically low 0.9-7.0 [facility] Comment on above: Performed By: #### C BC #### [facility] [address] [place] [address] Dr. Bridger Aggarwal Erythrocyte distribution width (RBC) [Ratio] 12.0 % Normal 11.0-15.0 [facility] Comment on above: Performed By: #### C BC #### [facility] [address] [place] [address] Dr. Bridger Aggarwal Hematocrit (Bld) [Volume fraction] 44.9 % Normal 42.0-54.0 [facility] Comment on above: Performed By: #### C BC #### [facility] [address] [place] [address] Dr. Bridger Aggarwal Hemoglobin (Bld) [Mass/Vol] 15.4 g/dL Normal 14.0-18.0 [facility] Comment on above: Performed By: #### C BC #### [facility] [address] [place] [address] Dr. Bridger Aggarwal IG # 0.03 10e3/ul Normal 0.00-0.03 [facility] Comment on above: Performed By: #### C BC #### [facility] [address] [place] [address] Dr. Bridger Aggarwal IG % 0.3 % Normal 0.0-0.5 [facility] Comment on above: Performed By: #### C BC #### [facility] [address] [place] [address] Dr. Bridger Aggarwal LYMPH # 1.5 103/ul Normal 1.2-3.8 [facility] Comment on above: Performed By: #### C BC #### [facility] [address] [place] [address] Dr. Bridger Aggarwal Lymphocytes/100 WBC (Bld) 14.2 % Critically low 20.5-60.0 [facility] Comment on above: Performed By: #### C BC #### [facility] [address] [place] [address] Dr. Bridger Aggarwal MANUAL DIFF REQ NO Normal [facility] Comment on above: Performed By: #### C BC #### [facility] [address] [place] [address] Dr. Bridger Aggarwal MCH (RBC) [Entitic mass] 34.2 pg Critically high 25.9-34.0 [facility] Comment on above: Performed By: #### C BC #### [facility] Laboratory [address] [place] [address] [address] Bridger Aggarwal MCHC (RBC) [Mass/Vol] 34.3 g/dL Normal 29.9-35.2 [facility] Comment on above: Performed By: #### C BC #### [facility] [address] [address] [address] Bridger Aggarwal MCV (RBC) [Entitic vol] 99.8 fL Critically high 80.0-94.0 [facility] Comment on above: Performed By: #### C BC #### [facility] [address] [place] [address] Dr. Bridger Aggarwal MONO # 0.7 103/ul Normal 0.3-0.8 [facility] Comment on above: Performed By: #### C BC #### [facility] [address] [place] [address] Dr. Bridger Aggarwal Monocytes/100 WBC (Bld) 6.3 % Normal 1.7-12.0 [facility] Comment on above: Performed By: #### C BC #### [facility] [address] [place] [address] Dr. Bridger Aggarwal NEUT # 8.2 103/ul Critically high 1.4-6.5 [facility] Comment on above: Performed By: #### C BC #### [facility] [address] [place] [address] Dr. Bridger Aggarwal Neutrophils/100 WBC (Bld) 78.2 % Critically high 43.0-75.0 [facility] Comment on above: Performed By: #### C BC #### [facility] [address] [place] [address] Dr. Bridger Aggarwal Platelet mean volume (Bld) [Entitic vol] 9.6 fL Normal 9.5-13.5 [facility] [place] Comment on above: Performed By: #### C BC #### [facility] [facility] [address] [place] [address] Dr. Bridger Aggarwal PLT 247 103/ul Normal 150-450 [facility] [place] Comment on above: Performed By: #### C BC #### [facility] [address] [place], [place] [address] Dr. Bridger Aggarwal RBC 4.50 106/ul Critically low 4.70-6.10 [facility] Comment on above: Performed By: #### C BC #### [facility] [place] [facility] [address] [place], [place] [address] Dr. Bridger Aggarwal WBC 10.5 103/ul Normal 4.0-11.0 [facility] Comment on above: Performed By: #### C BC #### [facility] [place] [facility] [address] [place], [place] [address] HEAD WO CONon [...] JACOB LALA Date: 2021-12-26 13:30 Normal [facility] [place] PROF CHEM 8 (BAS METB)on Anion gap [Moles/Vol] 17.1 mmol/L Normal [facility] [place] Comment on above: Performed By: #### A 1C #### [facility] [facility] [address] [place], [place] [address] Dr. Bridger Aggarwal Calcium [Mass/Vol] 9.4 mg/dL Normal 8.5-10.1 [facility] Comment on above: Performed By: #### A 1C #### [facility] [place] [facility] [address] [address] [address] Bridger Aggarwal Chloride [Moles/Vol] 97 mmol/L Critically low 98-107 [facility] Comment on above: Performed By: #### A 1C #### [facility] [address] [address] [address] Bridger Aggarwal CO2 [Moles/Vol] 20.6 mmol/L Critically low 21.0-32.0 [facility] Comment on above: Performed By: #### A 1C #### [facility] [address] [place] [address] Dr. Bridger Aggarwal Creatinine [Mass/Vol] 0.96 mg/dL Normal 0.70-1.30 [facility] Comment on above: Performed By: #### A 1C #### [facility] [address] [place] [address] Dr. Bridger Aggarwal EGFR-AF CYPRIOT >60 Normal >=60 [facility] Comment on above: Performed By: #### A 1C #### [facility] [facility] [address] [address] [address] Bridger Aggarwal EGFR-NON AF CYPRIOT >60 Normal >=60 [facility] Comment on above: Performed By: #### A 1C #### [facility] [address] [place] [address] Dr. Bridger Aggarwal Glucose [Mass/Vol] 216 mg/dL Critically high 74-106 [facility] Comment on above: Performed By: #### A 1C #### [facility] [address] [place] [address] Dr. Bridger Aggarwal Potassium [Moles/Vol] 3.7 mmol/L Normal 3.5-5.1 [facility] Comment on above: Performed By: #### A 1C #### [facility] [address] [address] [address] Bridger Aggarwal Sodium [Moles/Vol] 131 mmol/L Critically low 136-145 [facility] Comment on above: Performed By: #### A 1C #### [facility] [address] [place] [address] Dr. Bridger Aggarwal Urea nitrogen [Mass/Vol] 26.0 mg/dL Critically high 7.0-18.0 [facility] Comment on above: Performed By: #### A 1C #### [facility] [address] [place] [address] Dr. Bridger Aggarwal Urea nitrogen/Creatinine [Mass ratio] 27.1 mg/mg Normal [facility] Comment on above: Performed By: #### A 1C #### [facility] [address] [place] [address] Dr. Bridger Aggarwal CBC AUTO DIFFon 12-18-2021 BASO # 0.0 103/ul Normal 0.0-0.1 [facility] Comment on above: Performed By: #### A 1C #### [facility] [address] [place] [address] Dr. Bridger Aggarwal Basophils/100 WBC (Bld) 0.4 % Normal 0.2-2.0 [facility] Comment on above: Performed By: #### A 1C #### [facility] [address] [place] [address] Dr. Bridger Aggarwal EO # 0.1 103/ul Normal 0.0-0.7 [facility] Comment on above: Performed By: #### A 1C #### [facility] [address] [place] [address] Dr. Bridger Aggarwal Eosinophils/100 WBC (Bld) 1.2 % Normal 0.9-7.0 [facility] [place] Comment on above: Performed By: #### A 1C #### [facility] [address] [place] [address] Dr. Bridger Aggarwal Erythrocyte distribution width (RBC) [Ratio] 12.5 % Normal 11.0-15.0 [facility] Comment on above: Performed By: #### A 1C #### [facility] [address] [place] [address] Dr. Bridger Aggarwal Hematocrit (Bld) [Volume fraction] 45.9 % Normal 42.0-54.0 [facility] Comment on above: Performed By: #### A 1C #### [facility] [address] [address] [address] Bridger Aggarwal Hemoglobin (Bld) [Mass/Vol] 15.8 g/dL Normal 14.0-18.0 [facility] Comment on above: Performed By: #### A 1C #### [facility] [address] [place] [address] Dr. Bridger Aggarwal IG # 0.04 10e3/ul Critically high 0.00-0.03 [facility] Comment on above: Performed By: #### A 1C #### [facility] [address] [place] [address] Dr. Bridger Aggarwal IG % 0.5 % Normal 0.0-0.5 [facility] Comment on above: Performed By: #### A 1C #### [facility] [address] [place] [address] Dr. Bridger Aggarwal LYMPH # 1.7 103/ul Normal 1.2-3.8 [facility] [place] Comment on above: Performed By: #### A 1C #### [facility] [place] Laboratory [address] [place] [address] Dr. Bridger Aggarwal Lymphocytes/100 WBC (Bld) 22.3 % Normal 20.5-60.0 [facility] Comment on above: Performed By: #### A 1C #### [facility] [place] Laboratory [address] [place] [address] Dr. Bridger Aggarwal MANUAL DIFF REQ NO Normal [facility] Comment on above: Performed By: #### A 1C #### [facility] [place] Laboratory [address] [place] [address] Dr. Bridger Aggarwal MCH (RBC) [Entitic mass] 34.3 pg Critically high 25.9-34.0 [facility] [place] Comment on above: Performed By: #### A 1C #### [facility] [place] Laboratory [address] [place] [address] Dr. Bridger Aggarwal MCHC (RBC) [Mass/Vol] 34.4 g/dL Normal 29.9-35.2 [facility] [place] Comment on above: Performed By: #### A 1C #### [facility] [place] Laboratory [address] [address] [address] Bridger Aggarwal MCV (RBC) [Entitic vol] 99.6 fL Critically high 80.0-94.0 [facility] Comment on above: Performed By: #### A 1C #### [facility] [place] Laboratory [address] [address] [address] Bridger Aggarwal MONO # 0.7 103/ul Normal 0.3-0.8 [facility] Comment on above: Performed By: #### A 1C #### [facility] [place] Laboratory [address] [address] [address] Bridger Aggarwal Monocytes/100 WBC (Bld) 8.6 % Normal 1.7-12.0 [facility] Comment on above: Performed By: #### A 1C #### [facility] [place] Laboratory [address] [address] [address] Bridger Aggarwal NEUT # 5.2 103/ul Normal 1.4-6.5 [facility] Comment on above: Performed By: #### A 1C #### [facility] [place] Laboratory [address] [place] [address] Dr. Bridger Aggarwal Neutrophils/100 WBC (Bld) 67.0 % Normal 43.0-75.0 [facility] Comment on above: Performed By: #### A 1C #### [facility] [place] Laboratory [address] [address] [address] Bridger Aggarwal Platelet mean volume (Bld) [Entitic vol] 9.4 fL Critically low 9.5-13.5 [facility] [place] Comment on above: Performed By: #### A 1C #### [facility] [place] Laboratory [address] [address] [address] Bridger Aggarwal PLT 259 103/ul Normal 150-450 [facility] [place] Comment on above: Performed By: #### A 1C #### [facility] [place] Laboratory [address] [address] [address] Bridger Aggarwal RBC 4.61 106/ul Critically low 4.70-6.10 [facility] Comment on above: Performed By: #### A 1C #### [facility] [place] Laboratory [address] [address] [address] Bridger Aggarwal WBC 7.8 103/ul Normal 4.0-11.0 [facility] Comment on above: Performed By: #### A 1C #### [facility] [place] Laboratory [address] [address] [address] Bridger Aggarwal FREE T3on 12-18-2021 FREE T3 2.71 pg/mlL Normal 2.18-3.98 [facility] Comment on above: Performed By: #### C MP, T4, FT3, TSH, LIPID #### [facility] [place] Laboratory [address] [place] [address] Dr. Bridger Aggarwal GLYCOHEMOGLOBIN A1Con 2021 ADA RECOMMENDATION SEE BELOW Normal [facility] Comment on above: Result Comment: ADA RECOMMENDED LIMIT 4.0 - 6.0 ADA THERAPEUTIC TARGET < 7.0 ACTION SUGGESTED > 7.0 Performed By: #### A 1C #### [facility] [place] Laboratory [address] [place] [address] Dr. Bridger Aggarwal Glucose [Mass/Vol] 197 mg/dL Normal [facility] Comment on above: Performed By: #### A 1C #### [facility] Laboratory [address] [place] [address] Dr. Bridger Aggarwal HbA1c (Bld) [Mass fraction] 8.5 % Critically high 4.5-6.2 [facility] Comment on above: Performed By: #### A 1C #### [facility] [place] Laboratory [address] [place] [address] Dr. Bridger Aggarwal LIPID PROFILEon 12-18-2021 CHOL-HDL RATIO NORM SEE BELOW Normal [facility] Comment on above: Result Comment: 3.3 - 4.4 LOW RISK 4.4 - 7.1 AVERAGE RISK 7.1 - 11.0 MODERATE RISK >11.0 HIGH RISK Performed By: #### C MP, T4, FT3, TSH, LIPID #### [facility] [place] [address] [place] [address] Dr. Bridger Aggarwal Cholesterol [Mass/Vol] 157 mg/dL Normal <=200 [facility] Comment on above: Performed By: #### C MP, T4, FT3, TSH, LIPID #### [facility] [place] [facility] [address] [address] [address] Bridger Aggarwal Cholesterol in HDL [Mass/Vol] 46 mg/dL Normal 40-60 [facility] Comment on above: Performed By: #### C MP, T4, FT3, TSH, LIPID #### [facility] [address] [address] [address] Bridger Aggarwal Cholesterol in LDL [Mass/Vol] 85.8 mg/dL Normal [facility] Comment on above: Performed By: #### C MP, T4, FT3, TSH, LIPID #### [facility] [address] [address] [address] Bridger Aggarwal Cholesterol.total/Ch olesterol in HDL [Mass ratio] 3.4 {ratio} Normal [facility] Comment on above: Performed By: #### C MP, T4, FT3, TSH, LIPID #### [facility] [place] [facility] [address] [address] [address] Bridger Aggarwal HDL NORMAL > or = 60 mg/dl - LOW CARDIOVASCULAR RISK <40 mg/dl - HIGH CARDIOVASCULAR RISK Normal [facility] Comment on above: Performed By: #### C MP, T4, FT3, TSH, LIPID #### [facility] [place] [facility] [address] [place] [address] Dr. Bridger Aggarwal LDL CALC NORMAL SEE BELOW Normal [facility] Comment on above: Result Comment: <100 mg/dl OPTIMAL 100 - 129 mg/dl NEAR OR ABOVE OPTIMAL 130 - 159 mg/dl BORDERLINE HIGH 160 - 189 mg/dl HIGH >190 mg/dl VERY HIGH Performed By: #### C MP, T4, FT3, TSH, LIPID #### [facility] [place] [facility] [address] [address] [address] Bridger Aggarwal Triglyceride [Mass/Vol] 126 mg/dL Normal <=150 [facility] [place] Comment on above: Performed By: #### C MP, T4, FT3, TSH, LIPID #### [facility] [place] [facility] [address] [address] [address] Bridger Aggarwal VLDL CALC 25.2 mg/dL Normal [facility] Comment on above: Performed By: #### C MP, T4, FT3, TSH, LIPID #### [facility] [place] Laboratory [address] [place] [address] Dr. Bridger Aggarwal OCC BLD IMMUNO SCREENon 12-06 OCCULT BLOOD Negative Normal NEGATIVE [facility] Comment on above: Performed By: #### O BSCRN #### [facility] [place] Laboratory [address] [place] [address] Dr. Bridger Aggarwal PROF 14(COMP METB)on 022 Albumin [Mass/Vol] 3.6 g/dL Normal 3.4-5.0 [facility] Comment on above: Performed By: #### C MP, T4, FT3, TSH, LIPID #### [facility] [place] Laboratory [address] [place] [address] Dr. Bridger Aggarwal Albumin/Globulin [Mass ratio] 0.9 {ratio} Normal [facility] Comment on above: Performed By: #### C MP, T4, FT3, TSH, LIPID #### [facility] [place] [facility] [address] [place] [address] Dr. Bridger Aggarwal ALP [Catalytic activity/Vol] 84 U/L Normal 46-116 [facility] Comment on above: Performed By: #### C MP, T4, FT3, TSH, LIPID #### [facility] [facility] [address] [place] [address] Dr. Bridger Aggarwal ALT [Catalytic activity/Vol] 45 U/L Normal 16-63 [facility] Comment on above: Performed By: #### C MP, T4, FT3, TSH, LIPID #### [facility] [place] [facility] [address] [place] [address] Dr. Bridger Aggarwal Anion gap [Moles/Vol] 12.1 mmol/L Normal [facility] Comment on above: Performed By: #### C MP, T4, FT3, TSH, LIPID #### [facility] [place] Laboratory [address] [place] [address] Dr. Bridger Aggarwal AST [Catalytic activity/Vol] 20 U/L Normal 15-37 [facility] Comment on above: Performed By: #### C MP, T4, FT3, TSH, LIPID #### [facility] [place] Laboratory [address] [place] [address] Dr. Bridger Aggarwal Bilirubin [Mass/Vol] 0.6 mg/dL Normal 0.2-1.0 [facility] Comment on above: Performed By: #### C MP, T4, FT3, TSH, LIPID #### [facility] [place] [facility] [address] [place] [address] Dr. Bridger Aggarwal Calcium [Mass/Vol] 9.1 mg/dL Normal 8.5-10.1 [facility] Comment on above: Performed By: #### C MP, T4, FT3, TSH, LIPID #### [facility] [place] [facility] [address] [place] [address] Dr. Bridger Aggarwal Chloride [Moles/Vol] 100 mmol/L Normal 98-107 [facility] Comment on above: Performed By: #### C MP, T4, FT3, TSH, LIPID #### [facility] [address] [place] [address] Dr. Bridger Aggarwal CO2 [Moles/Vol] 28.4 mmol/L Normal 21.0-32.0 [facility] Comment on above: Performed By: #### C MP, T4, FT3, TSH, LIPID #### [facility] [address] [place] [address] Dr. Bridger Aggarwal Creatinine [Mass/Vol] 0.99 mg/dL Normal 0.70-1.30 [facility] Comment on above: Performed By: #### C MP, T4, FT3, TSH, LIPID #### [facility] [address] [place] [address] Dr. Bridger Aggarwal EGFR-AF CYPRIOT >60 Normal >=60 [facility] Comment on above: Performed By: #### C MP, T4, FT3, TSH, LIPID #### [facility] [place] [facility] [address] [place] [address] Dr. Bridger Aggarwal EGFR-NON AF CYPRIOT >60 Normal >=60 [facility] Comment on above: Performed By: #### C MP, T4, FT3, TSH, LIPID #### [facility] [facility] [address] [place] [address] Dr. Bridger Aggarwal Globulin (S) [Mass/Vol] 3.8 g/dL Normal [facility] Comment on above: Performed By: #### C MP, T4, FT3, TSH, LIPID #### [facility] [place] [facility] [address] [address] [address] Bridger Aggarwal Glucose [Mass/Vol] 260 mg/dL Critically high 74-106 T [facility] Comment on above: Performed By: #### C MP, T4, FT3, TSH, LIPID #### [facility] [place] [facility] [address] [place] [address] Dr. Bridger Aggarwal Potassium [Moles/Vol] 4.5 mmol/L Normal 3.5-5.1 [facility] Comment on above: Performed By: #### C MP, T4, FT3, TSH, LIPID #### [facility] [facility] [address] [place] [address] Dr. Bridger Aggarwal Protein [Mass/Vol] 7.4 g/dL Normal 6.4-8.2 [facility] Comment on above: Performed By: #### C MP, T4, FT3, TSH, LIPID #### [facility] [place] [facility] [address] [place] [address] Dr. Bridger Aggarwal Sodium [Moles/Vol] 136 mmol/L Normal 136-145 [facility] Comment on above: Performed By: #### C MP, T4, FT3, TSH, LIPID #### [facility] [facility] [address] [place] [address] Dr. Bridger Aggarwal Urea nitrogen [Mass/Vol] 17.0 mg/dL Normal 7.0-18.0 [facility] [place] Comment on above: Performed By: #### C MP, T4, FT3, TSH, LIPID #### [facility] [place] [facility] [address] [place] [address] Dr. Bridger Aggarwal Urea nitrogen/Creatinine [Mass ratio] 17.2 mg/mg Normal [facility] Comment on above: Performed By: #### C MP, T4, FT3, TSH, LIPID #### [facility] [place] Laboratory [address] [place] [address] Dr. Bridger Aggarwal T4on 12-18-2021 T4 [Mass/Vol] 4.80 ug/dL Normal 4.50-12.10 [facility] Comment on above: Performed By: #### C MP, T4, FT3, TSH, LIPID #### [facility] [place] Laboratory [address] [address] [address] Bridger Aggarwal TSHon 12-18-2021 TSH 1.496 uIU/mL Normal 0.358-3.740 [facility] Comment on above: Performed By: #### C MP, T4, FT3, TSH, LIPID #### [facility] [place] [address] [address] [address] Bridger Aggarwal TSH RANGE SEE BELOW Normal [facility] [place] Comment on above: Result Comment: <0.3 4 UIU/ml HYPERTHYROID 0.34-5.60 UIU/ml EUTHYROID >5.60 UIU/ml HYPOTHYROID Performed By: #### C MP, T4, FT3, TSH, LIPID #### [facility] Laboratory [address] [place] [address] Dr. Bridger Aggarwal Encounters Encounter Date Encounter Type Care Provider Facility Start: 12-03-2024 End: 12-03-2024 ambulatory Esther Hernández MD Facility: [facility] Start: 11-06-2024 ambulatory AMALIA De La Cruz [facility] Start: 10-19-2024 End: 10-19-2024 ambulatory BENI LOPEZ [facility] Start: 12-05-2023 End: 12-05-2023 ambulatory POLO HERRERA [facility] Start: 08-10-2022 End: 08-10-[address] ADARSH HALL Facility:[facility] Start: 08-03-2022 End: 08-03-[address] ADARSH HALL Facility:[facility] Start: 04-21-2022 End: 04-21-[address] ADARSH HALL Facility:[facility] Start: 03-29-2022 End: 03-29-[address] ADARSH HALL Facility:[facility] Start: 02-05-2022 End: 02-05-[address] ADARSH HLAL Facility:[facility] Start: 12-28-2021 End: 12-29-[address] ADARSH HALL Facility:[facility] Start: 12-26-2021 End: 12-26-[address] ADARSH HALL Facility:[facility] Start: 12-23-2021 Encounter for genera l adult medical examination without abnormal findings DR ADARSH HALL [facility] Start: 12-18-2021 End: 12-19-[address] ADARSH HALL Facility:[facility] Start: 12-18-2021 End: 12-19-2021 Encounter for general adult medical examination without abnormal findings DR ADARSH HALL Facility:[facility] Procedures Date Procedure Procedure Detail Performing Clinician Start: 12-18-[address] GREG HALL Comment on above: Performed By: #### P [facility] #### [facility] [place] Laboratory [address] [place] [address] Dr. Bridger Aggarwal Payers Date Payer Category Payer Private Health Insurance [id number] 2024 Private Health Insurance 1975 Unknown [id number] 2.16.84 [id number] 1973 Unknown [id number] 2.16.84 [id number] 1973 Unknown [id number] 2.16.84 [id number] 1973 Unknown [id number] 2.16.84 [id number] 1973 Unknown [id number] 2.16.84 [id number] 1973 Unknown [id number] 2.16.84 [id number] 1973 Unknown [id number] 2.16.84 [id number] 1973 Unknown [id number] 2.16.84 [id number] 1973 Unknown [id number] 2.16. [id number] 1959 Private Health Insurance [id number] 1959 Unknown [id number] Progress note 11-06-2024 Note Date & Type Note Facility 11-06-2024 Note Cardiothoracic Surge ry Outpatient New Patient Note 11/06/2024 Reason For Visit Rib Fractures Referring Provider: Adarsh Hall MD History Of Present Illness Isaiah Obrien is a 49 y.o. male with PMH of systolic heart failure, NICM, non-obstructive CAD, HTN, HLD alcohol abuse, former smoker who back in September was walking outside with flip flops on while there was ice and slipped on the ice falling onto his left side. He struck 2 stairs to the entrance of his house. He was evaluated and underwent CXR and CT of the chest 10/05/24 that showed mildly displaced fractures involving the lateral aspect of the 5th through 7th rib. He continues to have axillary pain that he is taking over the counter back aid for. He continues to work with restriction to lifting due to pain. Patient was referred to CT Surgery was evaluation for rib plating. He is here today accompanied by his . 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 On exam his chest is stable, no flail chest present. He does have tenderness to anterior and axillary area on his left side. There are no open areas, no erythema, or bruising. Assessment: Diagnosis Plan 1. Closed fracture of multiple ribs of left side, initial encounter Plan : -Patient seen and evaluated by Cardiothoracic Team. Dr. Galen Day personally reviewed The CT of the Chest, CXR, and Other Diagnostic Testing. Findings discussed with patient and . Explained current disease process and reviewed treatment options. -CT Surgery Recommendation: At this time he is almost 8 weeks out from fracture of ribs 5-7 on the left side. His chest is stable, no flail chest seen. Imaging does not show complete displacement. At this time would treat conservatively and will refer patient to pain clinic to assess for rib block. If unsuccessful can reevaluate in [facility] Surgery Clinic. -Patient and agreeable to POC. -BP elevated 160s systolic in office, informed to follow-up with PCP. Likely due to pain. Past Medical History He has a past medical history of Alcohol abuse, CHF (congestive heart failure) (CMS/HCC), Coronary artery disease, Diabetes mellitus (CMS/HCC), Hyperlipidemia, and Hypertension. Surgical History He has a past surgical history that includes Bladder surgery and Cardiac catheterization. Family History Family History Problem Relation Name Age of Onset Heart attack Maternal Grandfather Social History He reports that he quit smoking about 13 months ago. His smoking use included cigarettes. He started smoking about 11 years ago. He has a 5 pack-year smoking history. He has never used smokeless tobacco. He reports that he does not currently use alcohol. No history on file for drug use. Allergies Patient has no known allergies. Medications Current Outpatient Medications Medication Sig Dispense Refill atorvastatin (Lipitor) 80 mg tablet TAKE 1 TABLET BY MOUTH AT BEDTIME 90 tablet 3 carvedilol (Coreg) 6.25 mg tablet TAKE 1 TABLET BY MOUTH IN THE MORNING AND AT BEDTIME 180 tablet 3 dapagliflozin propanediol (Farxiga) 10 mg Take 1 tablet (10 mg) by mouth in the morning. 90 tablet 3 empagliflozin (Jardiance) 10 mg Take 1 tablet (10 mg) by mouth once daily as directed. 90 tablet 0 glimepiride (Amaryl) 4 mg tablet Take 8 mg by mouth before breakfast. pantoprazole (ProtoNix) 40 mg EC tablet Take 1 tablet (40 mg) by mouth before breakfast and before evening meal. Do not crush, chew, or split. 180 tablet 3 sacubitril-valsartan (Entresto) 24-26 mg tablet Take 1 tablet by mouth in the morning and at bedtime. (Patient taking differently: Take 2 tablets by mouth in the morning and at bedtime.) 180 tablet 3 sacubitril-valsartan (Entresto) 49-51 mg tablet Take 1 tablet by mouth in the morning and at bedtime. 180 tablet 3 spironolactone (Aldactone) 25 mg tablet Take 0.5 tablets (12.5 mg) by mouth in the morning. 45 tablet 3 venlafaxine XR (Effexor-XR) 75 mg 24 hr capsule Take 75 mg by mouth in the morning. Do not crush or chew. No current facility-administered medications for this visit. Review of Systems Review of Systems: All 14 Systems Reviewed and Negative unless otherwise indicated in the above HPI. Last Recorded Vitals There were no vitals taken for this visit. Physical Exam Physical Exam Vitals reviewed. Constitutional: General: He is not in acute distress. Appearance: Normal appearance. He is normal weight. He is not ill-appearing. HENT: Head: Normocephalic and atraumatic. Mouth/Throat: Mouth: Mucous membranes are moist. Pharynx: Oropharynx is clear. Eyes: Extraocular Movements: Extraocular movements intact. Conjunctiva/sclera: Conjunctivae normal. Pupils: Pupils are equal, round, and reactive to light. Neck: Vascular: No carotid bruit. Cardiovascular: Rate and Rhythm: Normal rate and regular rhythm. Pulses: (more content not included)... [facility] Progress note 12-05-2023 Note Date & Type Note Facility 12-05-2023 Note [facility] Cardiology Clinic Note Chief Complaint: Patient here for follow up echo performed on 11/24/2023. He saw Dr. Hall last week because his BP had been running high. Dr. Hall doubled his Entresto he says. Patient denies chest pain, SOB, palpitations, and lightheadedness/syncope. Still has some fatigue. HPI: Isaiah Obrien is a 48 y.o. male PMHx: systolic [...] disease- nonobstructive with sluggish coronary flow on [facility] 10/07/23 Hypertension Type 2 DM with A1C 8% Dyslipidemia Alcohol abuse Tobacco dependence Circumferential esophageal thickening-Outpatient GI Fup for concern of EGD, has hx of reflux, Cont PPI therapy Bilateral groundglass opacities and hilar lymphadenopathy. Be infectious versus inflammatory. Flu PCR and COVID-negative. Admission Diagnosis: Heart failure (CMS/HCC) [I50.9] Hospital course: Isaiah Obrien is a 48 y.o. male with a PMH significant for T2DM, HTN, obesity, LARS, tobacco dependence intially presents to [facility] after sudden onset SOB. He [...] of Alcohol abuse, CHF (congestive heart failure) ([facility]), Coronary artery disease, Diabetes mellitus ([facility]), Hyperlipidemia, and Hypertension. Surgical History He has [...] 37.66 kg/m??? P (more content not included)... [facility] Summary Purpose Family History No Family History Records FoundNo Family History Records FoundNo Family History Records Found Advance Directives No Advanced Directives Records FoundNo Advanced Directives Records FoundNo Advanced Directives Records Found Additional Source Comments (unrecognized sect ion and content) No Status Records FoundNo Status Records FoundNo Status Records Found INFORMATION SOURCE (unrecogn ized section and content) DATE CREATED AUTHOR 08/10/2022 Edel keensd DATE CREATED AUTHOR AUTHOR'S ÁNGELIZ ATCASPER 11/13/2024 [facility] DATE CREATED AUTHOR AUTHOR'S ORGANIZ ATION 12/10/2024 [facility] FOR RECORDS PERTAINING TO PATIENTS WHO [...] BE BASED ON THE PRIMARY CLINICAL RECORDS. [facility]. provides no warranty or guarantee of the accuracy or completeness of information in this document.
[2025-01-07 12:34] LABS: Glucometer 274 mg/dL (74-106)
[2025-01-07 12:35] VITALS: BP 151/95; PULSE 106; TEMP 37.2; O2SAT 97
[2025-01-07 13:10] VITALS: BP 181/108; PULSE 104; O2SAT 96
[2025-01-07] MEDS: BUPIVACAINE HCL 0.25% PF 25 MG/10 ML VIAL 8 ML INJ (13:10)
[2025-01-07 13:11] VITALS: BP 188/109; PULSE 105; O2SAT 95
[2025-01-07] MEDS: LIDOCAINE HCL 2% 400 MG/20 ML MDV INJ (13:11)
--- NOTE | 2025-01-07 13:13 | W.PM.PROCNOT ---
Date of procedure: 01/07/25 Pre-op diagnosis: Pain due to lumbar spondylosis without myelopathy Post-op diagnosis: same as pre-op Procedure: Procedure: Bilateral L4-5, L5-S1 medial branch block Medications: Bupivacaine 0.25% 6cc The patient was seen and examined in the preoperative holding area.? An informed consent was obtained and placed on the chart.? The patient was brought to the medical procedure unit and placed in the prone position.? A timeout was completed verifying correct patient, procedure site, positioning, plan, and special equipment.? Using aseptic technique, the needle was placed at left L4. Under direct fluoroscopic visualization a Quincke-tipped spinal needle was advanced to the junction of the superior articulating process with the transverse process at the designated medial branch segment.? Preceded by negative aspiration, the above-mentioned injectate was placed in 1 mL aliquots.? The procedure was repeated at left L5, S1.? The needle was removed and insertion site was covered. The same procedure, at the same levels, was completed on the right side. The patient was taken to the postprocedural recovery area and monitored for an appropriate length of time before found suitable for discharge in the company of a responsible adult. Anesthesia: Local Surgeon: Esther Hernández Pathology: none sent Condition: stable Disposition: no change
== END 2025-01-07 13:18 | disposition home or self-care (01) ==
LOC: SURGOUT 11:53
PROVIDERS: PCP Family Medicine; Visit Provider Anesthesiology
DX: M54.50 Low back pain, unspecified (principal); M47.816 Spondylosis without myelopathy or radiculopathy, lumbar region; E11.8 Type 2 diabetes mellitus with unspecified complications; Z79.85 Long-term (current) use of injectable non-insulin antidiabetic drugs
CPT/HCPCS: 36415; 64493; 64494; 82948; J0665

== ENCOUNTER 2025-01-16 08:56 | Outpatient (OUT) | payer OTHER, SELFPAY ==
--- OUTSIDE RECORDS SUMMARY | 2024-11-16 05:16 | XMS_ITS ---
Author Organization The [facility] in [place] Address [address] [place] [address] Care Team Providers Care Labor Commissioner Name Role Phone Jj Hall Primary Care Provider Reason For Referral Diagnosis 1 Rib fractures (S22.3 9XA) Referral Organization [facility] Referring Provider First Name Jj Referring Provider Last Name Rafael Referring Provider Speciality Family Med icine Referred Provider Pain Management, [facility] Referred Provider Specialty Pain Medicin e Referral Priority Routine REASON FOR VISIT rib fractures Encounters Encounter Location Date Provider Diagnosis [facility] [address] [place] [address] 11/16/2024 Jj Sarathsaud Rib fractures S22.39 XA Assessments Encounter Date Diagnosis (ICD Code) Assessment Notes Treatment Notes Treatment Clinical Notes Section Notes 11/16/2024 Rib fractures (ICD-10 - S22.39XA) Plan Of Treatment Referrals Referral Date Details 11/16/2024 11/16/2024, [facility] Pain Management Progress Notes * Isaiah ROBERTO WDOB: [birth year] (49 yo M)Acc No.[id number]:11/16/2024 Patient: Tr Isaiah LUDWIG :1975 A ge:49 Y S ex:Male Address:[address] [place] [address], [phone] Subjective: * Chief Complaints: * R ib fractures * Medical History: * Surgical History: * Hospitalization/Major Diagno stic Procedure: * Medications: Objective: * Vitals: * Physical Examination: Assessment: * Assessment: 1. R ib fractures - S22.39XA (Primary) Plan: * Treatment: * Procedure Codes: * true * Date: Generated for Maria Luisa whyte/Jacqueline/Juanjo on: 0 01/16/2025 08:58 AM EDT Consultation Request Notes Referral Date Referring Provider Referred Provider Not es 11/16/2024 Jj Hall Pain Management, [facility]
--- OUTSIDE RECORDS SUMMARY | 2024-11-21 11:22 | XMS_ITS ---
Author Organization The [facility] in [place] Address [address] [place] [address] Care Team Providers Care Operator Lights Name Role Phone Jj Hall Primary Care Provider REASON FOR VISIT Pain Clinic- Encounters Encounter Location Date Provider Diagnosis [facility] [address] [place] [address] 11/21/2024 Jj Hall Plan Of Treatment No Information Progress Notes * Isaiah ROBERTO WDOB: [birth year] (49 yo M)Acc No.[id number]:11/21/2024 Patient: Tr Isaiah LUDWIG :1975 A ge:49 Y S ex:Male Address:[address] [place] [id number] * true * Date: Generated for Maria Luisa whyte/Jacqueline/eTransmitting on: 0 01/16/2025 08:58 AM EDT
--- OUTSIDE RECORDS SUMMARY | 2024-12-10 07:00 | XMS_ITS ---
Author Organization The [facility] in [place] Address [address] [place] [address] Care Team Providers Care Ophthalmic Medical Technologist Name Role Phone Jj Hall Primary Care Provider [phone] REASON FOR VISIT Presents to office alone for f/u from pain management. Had nerve block done today Medications Medication SIG (Take, Route, Frequency, Duration) Notes Start Date End Date Status Spironolactone 25 MG 1/2 Oral Once a day for 30 days Active Aspirin Low Dose 81 MG CHEW AND SWALLOW ONE TABLET BY MOUTH EVERY DAY WITH BREAKFAST Oral for 30 Days Active tiZANidine HCl 4 MG 1 tablet Orally ever y 6 hours PRN 09/18/2024 Active Triamcinolone Acetonide 0.1 % 1 application Externally Twice a day for 30 01/26/2024 Active Venlafaxine HCl ER 75 MG TAKE 1 CAPSULE BY MOUTH EVERY DAY for 90 Active oxyCODONE-Acetaminophen 5-325 MG 1 tablet as needed Orally every 4 hrs for 7 days S22.39XA S22.39XA 09/26/2024 Active Pantoprazole Sodium 40 MG TAKE ONE TABLE T BY MOUTH BEFORE BREAKFAST AND DINNER Oral for 30 Days Active Glimepiride 4 MG TAKE 2 TABLETS BY MO UTH ONCE EVERYDAY WITH BREAKFAST for 90 days Active Jardiance 25 MG TAKE 1 TABLET BY HUMPHREY TH EVERY DAY for 30 Active Levsin/SL 0.125 MG 1 tablet under the tongue and allow to dissolve as needed Sublingual QID 04/18/2024 Active Atorvastatin Calcium 80 MG TAKE ONE TABL ET BY MOUTH EVERY NIGHT AT BEDTIME Oral for 30 Days Active Carvedilol 6.25 MG 1 tablet Oral Twice a day for 30 days Active Diclofenac Sodium 75 MG 1 tablet as need ed Orally Twice a day for 30 days 07/23/2024 Active Entresto 49-51 MG 1 tablet Oral Twice a day for 30 days Active Social History Tobacco Use: Social History Observation Description Date Details (start date - stop date) Current Smoker 08/08/2020 - NA Tobacco Use/Smoking Question Answer Notes Patient is a current smoker When did you start smoking? 08/08/2020 How often do you smoke cigarettes? every day How many cigarettes a day do you smoke? 6-10 How soon after you wake up do you smoke your fir st cigarette? after 60 minutes Are you interested in quitting? Ready to quit AUDIT-C (Standard) Question Answer Notes Did you have a drink containing alcohol in the p ast year? No Points 0 Interpretation Negative Vital Signs Weight 259 lbs 12/10/2024 Height 69 in 12/10/2024 Blood pressure systolic 150 mm Hg 12/11/19 25 Blood pressure diastolic 90 mm Hg 025 BMI 38.24 kg/m2 12/10/2024 Encounters Encounter Location Date Provider Diagnosis [facility] [address] [place] [address] 12/10/2024 Jj Hall Myalgia M79.10 and Back pain M54.9 Assessments Encounter Date Diagnosis (ICD Code) Assessment Notes Treatment Notes Treatment Clinical Notes Section Notes 12/10/2024 Myalgia (ICD-10 - M79.10) 12/10/2024 Back pain (ICD-10 - M54.9) 12/10/2024 Other Recommended to rest and use a heating pad on the area. Take NSAIDs for pain as needed Plan Of Treatment Treatment Notes Assessment Notes Other Recommended to rest and use a heating pad on the area. Take NSAIDs for pain as needed Progress Notes * FELISAIsaiah WDOB: [birth year] (49 yo M)Acc No.[id number]:12/10/2024 Progress Note Patient: Isaiah MONREAL Provider: Riana Hall ([facility])MD :1975 A ge:49 Y S ex:Male Date:12/10/2024 Address:[address] [place], [place] [id number] Check In:10:54 AM LINDSAYCheck O ut:11:41 AM EST Subjective: * Chief Complaints: * P resents to office alone for f/u from pain management. Had nerve block done today * HPI: G eneral: had procedure today feels ok - feel slik ablt to RTW no symptoms into legs. B ack Pain: The patient complains of -. The symptoms have been present for 1-2 days. The patient believes symptoms are injury related No. The symptoms are mild. Symptomatic treatment has included heating pad, stretching. Associated symptoms include None. * ROS: G eneral/Constitutional: Lightheadedness d enies. C hange in appetite d enies. W eight Change d enies. C ardiovascular: Irregular heartbeat d enies. S welling in hands/feet?denies. R espiratory: Shortness of breath d enies. S hortness of breath with exertion d enies. W heezing d enies. M usculoskeletal: Comments S [facility] for details. N eurologic: Dizziness d enies. F ainting d enies. H eadache?denies. * Active Problem List K57.92 Diverticulitis Modified On:04/21/2023U Status:confirmed M79.10 Myalgia Modified On:07/13/2023 Status:confirmed R19.7 Acute diarrhea Modified On:09/02/2023U Status:confirmed K58.9 Irritable bowel Modified On:09/02/2023 Status:confirmed G47.30 Sleep apnea Modified On:09/23/2023U Status:confirmed F17.200 Smoker Modified On:09/23/2023U Status:confirmed K52.9 Gastroenteritis Modified On:09/27/2023U Status:confirmed I50.9 Heart failure Modified On:10/10/2023U Status:confirmed I25.10 Coronary artery dise ase Modified On:10/19/2023 Status:confirmed I10 Hypertension Modified On:10/19/2023U Status:confirmed E11.65 Diabetes type 2, unc ontrolled Modified On:10/19/2023 Status:confirmed E78.5 Dyslipidemia Modified On:10/19/2023 Status:confirmed F10.10 Alcohol abuse Modified On:10/19/2023 Status:confirmed F17.201 Tobacco dependence i n remission Modified On:10/19/2023 Status:confirmed K22.89 Esophageal thickenin g Modified On:10/19/2023 Status:confirmed I10 BP (high blood press ure) Modified On:11/03/2023 Status:confirmed E11.9 Diabetes mellitus Modified On:11/03/2023 Status:confirmed E78.00 Hypercholesterolemia Modified On:11/03/2023 Status:confirmed F41.8 Anxiety and depressi on Modified On:11/03/2023 Status:confirmed L74.0 Heat rash Modified On:01/26/2024 Status:confirmed M54.9 Back pain Modified On:07/23/2024 Status:confirmed S22.39XA Rib fractures Modified On:09/18/2024 Status:confirmed J98.11 Atelectasis Modified On:10/08/2024 Status:confirmed E78.00 Hypercholesteremia Modified On:10/08/2024 Status:confirmed S22.42XA Closed fracture of m ultiple ribs of left side, initial encounter Modified On:11/07/2024 Status:confirmed * Medical History: * Surgical History: T umor in Bladder Removed Right Heart Cath 09/2023Nerve Block 12/10/24 * Hospitalization/Major Diagno stic Procedure: s ee above left rib fractures 10/02 * Family History: F ather: alive. M other: alive. S ister(s): alive. S on(s): alive. 1 sister(s) - healthy. 1 son(s) - healthy. . * Social History: T obacco Use: T obacco Use/Smoking P atient is a c urrent smoker W hen did you start smoking? 0 08/08/2020 H ow often do you smoke cigarettes? e very day H ow many cigarettes a day do you smoke? 6 -10 H ow soon after you wake up do you smoke your first cigarette? a fter 60 minutes A re you interested in quitting? R benji to quit D rug/Alcohol: A FRANCE-C (Standard) D id you have a drink containing alcohol in the past year? N o P oints 0 I nterpretation N egative * Medications: T akingAspirin Low Dose(Aspirin) 81 MG Tablet Chewable CHEW AND SWALLOW ONE TABLET BY MOUTH EVERY DAY WITH BREAKFAST Oral Atorvastatin Calcium 80 MG Tablet TAKE ONE TABLET BY MOUTH EVERY NIGHT AT BEDTIME Oral Carvedilol 6.25 MG Tablet 1 tablet Oral Twice a day Diclofenac Sodium 75 MG Tablet Delayed Release 1 tablet as needed Orally Twice a day Entresto(Sacubitril-Valsartan) 49-51 MG Tablet 1 tablet Oral Twice a day Glimepiride 4 MG Tablet TAKE 2 TABLETS BY MOUTH ONCE EVERYDAY WITH BREAKFAST Jardiance(Empagliflozin) 25 MG Tablet TAKE 1 TABLET BY MOUTH EVERY DAY Levsin/SL(Hyoscyamine Sulfate) 0.125 MG Tablet Sublingual 1 tablet under the tongue and allow to dissolve as needed Sublingual QID oxyCODONE-Acetaminophen 5-325 MG Tablet 1 tablet as needed Orally every 4 hrs S22.39XA, Notes to Pharmacist: S22.39XAPantoprazole Sodium 40 MG Tablet Delayed Release TAKE ONE TABLET BY MOUTH BEFORE BREAKFAST AND DINNER Oral Spironolactone 25 MG Tablet 1/2 Oral Once a day tiZANidine HCl 4 MG Tablet 1 tablet Orally every 6 hours PRN Triamcinolone Acetonide 0.1 % Cream 1 application Externally Twice a day Venlafaxine HCl ER 75 MG Capsule Extended Release 24 Hour TAKE 1 CAPSULE BY MOUTH EVERY DAY Medication List reviewed and reconciled with the patientTaking Aspirin Low Dose(Aspirin) 81 MG Tablet Chewable CHEW AND SWALLOW ONE TABLET BY MOUTH EVERY DAY WITH BREAKFAST Oral Taking Atorvastatin Calcium 80 MG Tablet TAKE ONE TABLET BY MOUTH EVERY NIGHT AT BEDTIME Oral Taking Carvedilol 6.25 MG Tablet 1 tablet Oral Twice a day Taking Diclofenac Sodium 75 MG Tablet Delayed Release 1 tablet as needed Orally Twice a day Taking Entresto(Sacubitril-Valsartan) 49-51 MG Tablet 1 tablet Oral Twice a day Taking Glimepiride 4 MG Tablet TAKE 2 TABLETS BY MOUTH ONCE EVERYDAY WITH BREAKFAST Taking Jardiance(Empagliflozin) 25 MG Tablet TAKE 1 TABLET BY MOUTH EVERY DAY Taking Levsin/SL(Hyoscyamine Sulfate) 0.125 MG Tablet Sublingual 1 tablet under the tongue and allow to dissolve as needed Sublingual QID Taking oxyCODONE-Acetaminophen 5- 325 MG Tablet 1 tablet as needed Orally every 4 hrs S22.39XA, Notes to Pharmacist: S22.39XATaking Pantoprazole Sodium 40 MG Tablet Delayed Release TAKE ONE TABLET BY MOUTH BEFORE BREAKFAST AND DINNER Oral Taking Spironolactone 25 MG Tablet 1/2 Oral Once a day Taking tiZANidine HCl 4 MG Tablet 1 tablet Orally every 6 hours PRN Taking Triamcinolone Acetonide 0.1 % Cream 1 application Externally Twice a day Taking Venlafaxine HCl ER 75 MG Capsule Extended Release 24 Hour TAKE 1 CAPSULE BY MOUTH EVERY DAY Medication List reviewed and reconciled with the patient Objective: * Vitals: W t:259lbs, Ht: 69 in, BP:150/90mm Hg, BMI:38.24Index, Ht-cm: 175.26 cm, Wt-k.48 kg. * Examination: G eneral Examination: GENERAL APPEARANCE: i n no acute distress, well developed, well nourished. LUNGS: clear to auscultation bilaterally. CARDIO: S1, S2 normal, no murmurs, rubs, gallops. MUSCULOSKELETAL: better ROM. EXTREMITIES: no clubbing, cyanosis, or edema. NEUROLOGIC: alert, oriented to time, place, & person.? Assessment: * Assessment: 1. M yalgia - M79.10 (Primary) 2 . B ack pain - M54.9 Plan: * Treatment: * Procedure Codes: * Preventive Medicine: Screenings/Counseling: B MD ACTION PLAN Above Normal BMI Follow-up D ietary management education, guidance, and counseling See treatment section of progress note for complete details of management plan. * * Sign off status: Completed Visit Status: C HK (Check Out) true * Provider: Riana Hall ([facility])MD Date: 0 12/10/2024 Generated for Maria Luisa whyte/Jacqueline/eTransmitting on: 0 01/16/2025 08:58 AM EDT History and Physical Notes * HPI (History of Present Illness) Category Sub-Category Detail Notes Category Not es General had procedure today feels ok - feel slik ablt to RTW no symptoms into legs Examination Category Sub-Category Detail Notes Category Not es General Examination GENERAL APPEARANCE: in no ac dominik distress, well developed, well nourished CARDIO: S1, S2 normal, no mu rmurs, rubs, gallops LUNGS: clear to auscultatio n bilaterally NEUROLOGIC: alert, oriented to t silvia, place, & person EXTREMITIES: no clubbing, cyanosi s, or edema MUSCULOSKELETAL: better ROM
--- OUTSIDE RECORDS SUMMARY | 2025-01-16 08:58 | XMS_ITS | Referral Summary ---
Author Organization [facility] Address [address] [place] [id number] Care Team Providers Care Incident Manager Name Role Phone Donn Hall MD Primary Care Provider Encounters Date Type Department Care Team Description 11/30/[address] [phone] Yakelin Herrera MD Congestive heart failure, unspecified HF chronicity, unspecified heart failure type (CMS/HCC) 11/12/2024 Telephone [facility] [address] [place] [address] Kellie Diaz MA 11/07/2024 Orders Only [facility] [address] [place] [phone] Noemí García RN Closed fracture of multiple ribs of left side, initial encounter 11/06/2024 1:00 PM EDT Consult [facility] [address] [place] [phone] Lester Card, SCREEN REPAIRER CRUSHER Closed fracture of multiple ribs of left side, initial encounter (Primary Dx); Multiple rib fractures 10/30/2024 Orders Only [facility] [address] [place] [address] Kellie Diaz MA Congestive heart failure, unspecified HF chronicity, unspecified heart failure type (CMS/HCC) 10/27/2024 Refill [facility] [address] [place] [phone] Loretta Montgomery CNP Heart failure, unspecified HF chronicity, unspecified heart failure type (CMS/HCC) 10/22/2024 Abstract [facility] [address] [place] [phone] Noemí García RN 10/19/2024 - 10/19/2024 11:59 PM EDT Hospital Encounter [facility] [address] [place] [phone] Discharge Disposition: Home or Self Care () from Last 3 Months Allergies No known active allergies Medications glimepiride (Amaryl) 4 mg tablet Take 8 mg by mouth before breakfast. Active venlafaxine XR (Effexor-XR) 75 mg 24 hr capsule Take 75 mg by mouth in the morning. Do not crush or chew. Active sacubitril-valsa rtan (Entresto) 24-26 mg tabletIndication s:Heart failure, unspecified HF chronicity, unspecified heart failure type (CMS/HCC) Take 1 tablet by mouth in the morning and at bedtime. 180 tablet 3 4 Active Additional Information Patient not taking.Reported on 11/06/2024 spironolactone (Aldactone) 25 mg tabletIndication s:Heart failure, unspecified HF chronicity, unspecified heart failure type (CMS/HCC) Take 0.5 tablets (12.5 mg) by mouth in the morning. 45 tablet 3 4 Active pantoprazole (ProtoNix) 40 mg EC tabletIndication s:Heart failure, unspecified HF chronicity, unspecified heart failure type (CMS/HCC) Take 1 tablet (40 mg) by mouth before breakfast and before evening meal. Do not crush, chew, or split. 180 tablet 3 4 Active dapagliflozin propanediol (Farxiga) 10 mgIndications:He art failure, unspecified HF chronicity, unspecified heart failure type (CMS/HCC) Take 1 tablet (10 mg) by mouth in the morning. 90 tablet 3 5 08/31/19 26 Active carvedilol (Coreg) 6.25 mg tabletIndication s:Heart failure, unspecified HF chronicity, unspecified heart failure type (CMS/HCC) TAKE 1 TABLET BY MOUTH IN THE MORNING AND AT BEDTIME 180 tablet 3 5 Active atorvastatin (Lipitor) 80 mg tabletIndication s:Heart failure, unspecified HF chronicity, unspecified heart failure type (CMS/HCC) TAKE 1 TABLET BY MOUTH AT BEDTIME 90 tablet 3 5 Active empagliflozin (Jardiance) 10 mgIndications:Co ngestive heart failure, unspecified HF chronicity, unspecified heart failure type (CMS/HCC) Take 1 tablet (10 mg) by mouth once daily as directed. 90 tablet 5 10/31/19 Active Additional Information Patient not taking.Reported on 11/06/2024 tiZANidine (Zanaflex) 4 mg tablet Take 4 mg by mouth every 6 (six) hours if needed. 5 Active oxyCODONE-acetam inophen (Percocet) 5-325 mg tablet every 4 (four) hours. Patient is taking once a week. 5 Active acetaminophen (Tylenol) 160 mg meltaway tablet Take 650 mg by mouth every 6 (six) hours if needed for mild pain (1-3 pain score). Active Entresto 49-51 mg tabletIndication s:Congestive heart failure, unspecified HF chronicity, unspecified heart failure type (CMS/HCC) TAKE 1 TABLET BY MOUTH IN THE MORNING AND IN THE EVENING 180 tablet 3 5 Active Active Problems Problem Noted Date Diagnosed Date Coronary artery disease invo lving venetie coronary artery of venetie heart without angina pectoris 10/13/2023 Benign hypertensive heart disease with heart kacey lure 10/13/2023 NICM (nonischemic cardiomyopathy) 10/13/2023 Heart failure 10/05/2023 Social History Tobacco Use Types Packs/Day Years Used Date Smoking Tobacco: Some Days Cigarettes 0.5 10 Started: 10/06/2013; Last attempted to quit: 10/07/2023 Smokeless Tobacco: Never Tobacco Cessation:Ready to Q uit: Not Asked Alcohol Use Standard Drinks/Week Comments Not Currently 0 (1 standard drink = 0.6 oz pur e alcohol) [facility] Utilities Answer Date Recorded In the past 12 months has th e electric, gas, oil, or water company threatened to shut off services in your home? No 10/05/2023 Humiliation, Afraid, Rape, and Kick questionnair e Answer Date Recorded Within the last year, have y ou been afraid of your partner or ex-partner? No 10/05/2023 Emotionally Abused Not on file 10/05/2023 Physically Abused Not on file 10/05/2023 Sexually Abused Not on file 10/05/2023 Overall Financial Resource Strain (CARDIA) Answe r Date Recorded How hard is it for you to pa y for the very basics like food, housing, medical care, and heating? Not very hard 10/05/2023 Transportation Answer Date Recorded In the past 12 months, has l ack of transportation kept you from medical appointments or from getting medications? No 10/05/2023 Lack of Transportation (Non-Medical) Not on file 10/05/2023 Housing Stability Vital Sign Answer Abdiaziz e Recorded Unable to Pay for Housing in the Last Year Not o n file 10/05/2023 Number of Places Lived in the Last Year Not on f ile 10/05/2023 In the last 12 months, was t here a time when you did not have a steady place to sleep or slept in a fpc (including now)? No 10/05/2023 Hunger Vital Sign Answer Date Recorded Within the past 12 months, y ou worried that your food would run out before you got the money to buy more. Never true 10/05/19 24 Ran Out of Food in the Last Year Not on file 10/05/2023 Sex and Gender Information Value Date Recorded Sex Assigned at Not on file Legal Sex Male 1:56 PM EST Gender Identity Not on file Sexual Orientation Not on file Last Filed Vital Signs Vital Sign Reading Time Taken Comments Blood Pressure 163/102 11/06/2024 1:08 PM EDT Pulse 97 11/06/2024 1:08 PM EDT Temperature 36.7 C (98.1 F) 10/09/2023 11:52 AM EST Respiratory Rate 21 10/09/2023 11:52 AM EST Oxygen Saturation 99% 11/06/2024 12:58 PM EDT Inhaled Oxygen Concentration - - Weight 115 kg (253 lb) 11/06/2024 12:58 PM EDT Height 175.3 cm (5' 9 ) 11/06/2024 12:58 PM EDT Body Mass Index 37.36 11/06/2024 12:58 PM EDT Plan of Treatment Upcoming Encounters Date Type Department Care Team (Late st Contact Info) Description 02/01/2025 1:20 PM EDT Office Visit [facility] [address] [place] [phone] Tre Lima, SCREEN REPAIRER CRUSHER [address] [place] [address] Procedures Procedure Name Priority Date/Time Associated Diagnosis Comments XR TRANSFER OF OUTSIDE FILMS Routine 10/19/2024 12:00 AM EDT HEMOGLOBIN A1C Routine 10/05/2023 8:39 PM EST from Last 3 Months or Most Recently Relevant to Health Maintenance Results * XR transfer of outside films (10/19/2024 12:00 AM EDT) Narrative IMAGING - 10/19/2024 11:42 AM EDT This order has been auto-finalized and does not contain a result. us Carmen Trujillo MD IMG XR PROCEDURES Final Result IMAGING * (ABNORMAL) Hemoglobin A1c (10/05/2023 8:39 PM EST) Hemoglobin A1C 8.0(H) 4.0 - 6.0 % 10/06/2023 9:32 AM EST [facility] Estimated Average Glucose 183 mg/dL 10/06/2023 9:32 AM EST [facility] Blood Venous blood specimen / Unknown Venipuncture / Unknown 10/05/2023 8:39 PM EST 10/05/2023 9:26 PM EST us Derrick Lr MD LAB BLOOD ORDERABLES Fi nal Result [facility] [address] [place], [place] [id number] from Last 3 Months or Most Recently Relevant to Health Maintenance Insurance [facility] Advance Directives * Full Code (Latest Code Status on File) Date Activated Date Inactivated Comments 10/05/2023 7:51 PM 10/09/2023 5:39 PM Care Teams Incident Manager Relationship Specialty Start Date End Date Donn Hall MD [address] [place] [place] [address] PCP - General 10/06/23
--- OUTSIDE RECORDS SUMMARY | 2025-01-16 08:59 | XMS_ITS | Patient Health Record ---
Author Organization [facility] in [place] Address [address] [place] [address] Care Team Providers Care Laborer Prestressed Concrete Name Role Phone Jj Hall Primary Care Provider ADARSH HALL Unavailable [phone] Allergies No Known Allergies Results Component Value Reference Range Notes DIRECT LDL Reviewed date:03/18/2024 10:01:19 AM Interpretation: Performing Lab: Notes/Report: [facility] , LDL Cholesterol Direct 74 100-129 mg/dl NEAR OR ABOVE OPTIMAL 160-189 mg/dl HIGH 130-159 mg/dl BORDERLINE HIGH >190 mg/dl VERY HIGH <100 mg/dl OPTIMAL Performing Lab: see note ML - [facility] LB PROF 14(COMP METB) Reviewed date:03/18/2024 10:01:19 AM Interpretation: Performing Lab: Notes/Report: [facility] , Sodium 138 136-145 mmol/L Potassium 3.7 3.5-5.1 mmol/L Chloride 100 98-107 mmol/L Carbon Dioxide 27.4 21.0-32.0 mmol/L Anion Gap 14.3 Glucose 229 74-106 mg/dL Blood Urea Nitrogen 24.0 7.0-18.0 mg/dL Creatinine 0.95 0.70-1.30 mg/dL Estimated GFR ( Naina >60 >=60 Estimated GFR (Non- Jessica >60 >=60 BUN Creatinine Ratio 25.3 Calcium 9.0 8.5-10.1 mg/dL Bilirubin Total 0.7 0.2-1.0 mg/dL Aspartate Amino Transferase 32 15-37 U/L Alanine Aminotransferase 52 16-63 U/L Alkaline Phosphatase 141 46-116 U/L Total Protein 7.3 6.4-8.2 g/dL Albumin Level 3.7 3.4-5.0 g/dL Globulin 3.6 Albumin Globulin Ratio 1.0 Performing Lab: see note ML - [facility] LB TSH Reviewed date:03/18/2024 10:01:19 AM Interpretation: Performing Lab: Notes/Report: [facility] , Thyroid Stimulating Hormone 2.576 0.358-3.740 uIU/mL Performing Lab: see note ML - [facility] LB PSA Total+% Free Reviewed date:03/18/2024 10:01:19 AM Interpretation: Performing Lab: Notes/Report: [facility] , Prostate Specific Ag 0.8 0.0-4.0 ng/mL followed by a subsequent confirmatory PSA value 0.2 ng/mL should decrease and remain at undetectable levels after radical prostatectomy. The AUA defines biochemical interpreted as absolute evidence of the presence or absence or greater. Values obtained with different assay methods or recurrence as an initial PSA value 0.2 ng/mL or greater of malignant disease. Norah ECLIA methodology. kits cannot be used interchangeably. Results cannot be According to the [employer], Serum PSA PSA, Free 0.11 N/A ng/mL Norah ECLIA methodology. % Free PSA 13.8 . % recommendations regarding the use of 0.00-10.00% 56% 55% The table below lists the probability of prostate cancer for [address] [place] [address] [id number] 10.01-15.00% 24% 35% Sulfur Chloride Operator: Saleem Ferguson PhD, Phone: [phone]). >25.00% 5% 9% Performed at: - [facility] Please note: Deann et aaron did not make specific 15.01-20.00% 17% 23% men with non-suspicious PANCHO results and total PSA between percent free PSA for any other population 4 and 10 ng/mL, by patient age (Deann et al, NKIKI 1998, of men. 20.01-25.00% 10% 20% % Free PSA 50-64 yr 65-75 yr Performing Lab: see note - [facility] LB XR ribs LT min 3V w CXR1V Reviewed date:09/17/2024 01:00:38 PM Interpretation: Performing Lab: Notes/Report: Source Facility: [place] [address] [place] [address] XRay Report Signed Patient: TERA ROBERTO MR#: [id number] : 1975 Acct:[id number] Age/Sex: 49 / M ADM Date: 09/17/24 Loc: ER Attending Dr: Ordering Physician: Marcial Denson M.D. Date of Service: 09/17/24 Procedure(s): XR ribs LT min 3V w CXR1V Accession Number(s): [id number] cc: Adarsh Hall M.D.; Marcial Denson M.D. [place] [address] Patient Name: TERA ROBERTO MRN: [id number] date: 1975 Sex: M Assigned Patient Location: ED.MAIN Current Patient Location: ER Accession/Order Number: [id number] Exam Date: 09/17/2024 07:17 Report Date: 09/17/2024 07:46 At the request of: MARCIAL DENSON Procedure: XR ribs LT min 3V w CXR1V EXAMINATION: XR ribs LT min 3V w CXR1V HISTORY: fall COMPARISON: No relevant comparison available. FINDINGS: LUNGS: No significant pulmonary parenchymal abnormalities. PLEURA: No pneumothorax, effusion, or pleural thickening. Slight elevation the right hemidiaphragm MEDIASTINUM: No visible mass or adenopathy. CARDIAC: No cardiomegaly or cardiac silhouette abnormality. RIBS: Acute fractures involving the left lateral fifth sixth and seventh ribs OTHER: Negative. XR/XR ribs LT min 3V w CXR1V IMPRESSION: Acute left lateral fifth sixth and seventh rib fractures. Electronically authenticated by: HAL KATHLEEN Date: 09/17/2024 07:46 Dictated By: Hal Kathleen M.D. Signed By: 09/17/24 0748 DD/ TD/TT: Performance Makeup Artist: [place] [address] XRay Report Signed Patient: JACOB ROBERTO MR#: [id number] : 1975 Acct:[id number] Age/Sex: 49 / M ADM Date: 09/17/24 Loc: ER Attending Dr: Ordering Physician: Marcial Denson M.D. Date of Service: 09/17/24 Procedure(s): XR rib s LT min 3V w CXR1V Accession Number(s): [id number] cc: Adarsh Hall M.D. ; Marcial Denson M.D. [place] [address] Patient Name: TERA ROBERTO MRN: [id number] date: 1975 Sex: M Assigned Patient Location: ED.MAIN Current Patient Loca tion: ER Accession/Order Numb er: [id number] Exam Date: 09/17/2024 07:17 Report Date: 09/17/2024 07:46 At the request of: MARCIAL DENSON Procedure: XR ribs L T min 3V w CXR1V EXAMINATION: XR ribs LT min 3V w CXR1V HISTORY: fall COMPARISON: No relev ant comparison available. FINDINGS: LUNGS: No significan t pulmonary parenchymal abnormalities. PLEURA: No pneumotho rax, effusion, or pleural thickening. Slight elevation the right hemidiaphragm MEDIASTINUM: No visi ble mass or adenopathy. CARDIAC: No cardiome karen or cardiac silhouette abnormality. RIBS: Acute fracture s involving the left lateral fifth sixth and seventh ribs OTHER: Negative. X R/XR ribs LT min 3V w CXR1V IMPRESSION: Acute left lateral f ifth sixth and seventh rib fractures. Electronically authenticated by: HAL KATHLEEN Date: 09/17/2024 07:46 Dictated By: Taurus Kathleen M.D. Signed By: 09/17/24 0748 DD/ TD/TT: Performance Makeup Artist: CBC AUTO DIFF Reviewed date:09/19/2024 09:24:29 PM Interpretation: Performing Lab: Notes/Report: [facility] , White Blood Count 9.7 4.0-11.0 10 3/uL Red Blood Count 4.71 4.70-6.10 10 6/uL Hemoglobin 16.1 14.0-18.0 g/dL Hematocrit 46.8 42.0-54.0 % Mean Corpuscular Volume 99.4 80.0-94.0 fL Mean Corpuscular Hemoglobin 34.2 25.9-34.0 pg Mean Corpuscular HGB Conc 34.4 29.9-35.2 g/dL Red Cell Distribution Width 11.9 11.0-15.0 % Platelet Count 275 150-450 10 3/uL Mean Platelet Volume 9.5 9.5-13.5 fL Neutrophils Percent Auto 75.9 43.0-75.0 % Lymphocytes Percent Auto 14.6 20.5-60.0 % Monocytes Percent Auto 8.1 1.7-12.0 % Eosinophils Percent Auto 0.6 0.9-7.0 % Basophils Percent Auto 0.4 0.2-2.0 % Immature Granulocytes Pct Auto 0.4 0.0-0.5 % Neutrophils Absolute Auto 7.4 1.4-6.5 10 3/uL Lymphocytes Absolute Auto 1.4 1.2-3.8 10 3/uL Monocytes Absolute Auto 0.8 0.3-0.8 10 3/uL Eosinophils Absolute Auto 0.1 0.0-0.7 10 3/uL Basophils Absolute Auto 0.0 0.0-0.1 10 3/uL Immature Granulocytes Abs Auto 0.04 0.00-0.03 10 3/uL Performing Lab: see note ML - [facility] LB PROF CHEM 8 (BAS METB) Reviewed date:09/19/2024 09:24:29 PM Interpretation: Performing Lab: Notes/Report: [facility] , Sodium 138 136-145 mmol/L Potassium 4.6 3.5-5.1 mmol/L Chloride 100 98-107 mmol/L Carbon Dioxide 23.7 21.0-32.0 mmol/L Anion Gap 18.9 Glucose 152 74-106 mg/dL Blood Urea Nitrogen 33.0 7.0-18.0 mg/dL Creatinine 0.98 0.70-1.30 mg/dL Estimated GFR ( Naina >60 >=60 mL/min/1.73m 2 Estimated GFR (Non- Jessica >60 >=60 mL/min/1.73m 2 BUN Creatinine Ratio 33.7 Calcium 9.5 8.5-10.1 mg/dL Performing Lab: see note ML - [facility] LB ECG 12 lead Reviewed date:09/21/2024 06:50:48 AM Interpretation: Performing Lab: Notes/Report: Source Facility: [facility]-[address] [place] [address] [place] [address] Electrocardiograph Report Signed Patient: TERA ROBERTO MR#: [id number] : 1975 Acct:[id number] Age/Sex: 49 / M ADM Date: 09/18/24 Loc: [place] 218-[address]: Adarsh Hall M.D. Ordering Physician: Marcial Denson M.D. Date of Service: 09/18/24 Procedure(s): ECG 12 lead Accession Number(s): [id number] cc: [facility] Test Date: 2024-09-18 Pat Name: TERA ROBERTO Department: Room: - Gender: Male Design Eng: : 1975 Requested By: 1030 Order Number: [id number] Reading MD: ADARSH HALL Measurements Intervals Mclean Rate: 96 P: 45 MS: 162 QRS: 23 QRSD: 84 T: 43 QT: 356 QTc: 410 Interpretive Statements 1100 Sinus rhythm 1570 with occasional ventricular premature complexes 4068 Nonspecific Twave abnormality 5222 Moderate voltage criteria for LVH, may be normal variant 9140 abnormal rhythm ECG Compared to ECG 09/17/2024 06:34:09 Left ventricular hypertrophy now present Sinus tachycardia no longer present Electronically Signed On 09-21-2024 5:25:08 EST by ADARSH HALL Dictated By: Adarsh Hall M.D. Signed By: 09/21/24 0525 DD/ 06 TD/TT: Performance Makeup Artist: [place] [address] Electrocardiograph Report Signed Patient: JACOB ROBERTO MR#: [id number] : 1975 Acct:[id number] Age/Sex: 49 / M ADM Date: 09/18/24 Loc: [place] 218-[address]: Serafin Hall M.D. Ordering Physician: Marcial Denson M.D. Date of Service: 09/18/24 Procedure(s): ECG 12 lead Accession Number(s): [id number] cc: [facility] Test Date: 2024-09-18 Pat Name: TERA SIFUENTES Department: 99 Room: - Gender: Male Design Eng: : 1975 Requ ested By: 1030 Order Number: [id number] Reading MD: ADARSH HALL Measurements Intervals Mclean Rate: 96 P: 45 MS: 162 QRS: 23 QRSD: 84 T: 43 QT: 356 QTc: 410 Interpretive Statements 1100 Sinus rhythm 1570 with occasional ventricular premature complexes 4068 Nonspecific Twa ve abnormality 5222 Moderate voltag e criteria for LVH, may be normal variant 9140 abnormal rhy [facility] ECG Compared to ECG 09/17/2024 06:34:09 Left ventricular hypertrophy now present Sinus tachycardia no longer present Electronically Zeinab d On 09-21-2024 5:25:08 EST by ADARSH HALL Dictated By: Sukhdeep Hall M.D. Signed By: 09/21/24 0525 DD/ 06 TD/TT: Performance Makeup Artist: XR chest 1V Reviewed date:09/19/2024 09:24:29 PM Interpretation: Performing Lab: Notes/Report: Source Facility: [place] [address] [place] [address] XRay Report Signed Patient: TERA ROBERTO MR#: [id number] : 1975 Acct:[id number] Age/Sex: 49 / M ADM Date: 09/18/24 Loc: ER Attending Dr: Ordering Physician: Marcial Denson M.D. Date of Service: 09/18/24 Procedure(s): XR chest 1V Accession Number(s): [id number] cc: Adarsh Hall M.D.; Marcial Denson M.D. [place] [address] Patient Name: TERA ROBERTO MRN: [id number] date: 1975 Sex: M Assigned Patient Location: ER Current Patient Location: ER Accession/Order Number: [id number] Exam Date: 09/18/2024 22:58 Report Date: 09/19/2024 00:14 At the request of: MARCIAL DENSON Procedure: XR chest 1V EXAM: XR chest 1V HISTORY: Pain, recent rib fracture COMPARISON: Chest and left rib series dated 09/17/2024. TECHNIQUE: One view of the chest was obtained. FINDINGS: The cardiac silhouette is stable in size. There are mild left basilar opacities. There is no significant pneumothorax or right pleural effusion. There is a trace left pleural effusion. There are mildly displaced fractures of the lateral left fifth through seventh ribs. XR/XR chest 1V IMPRESSION: 1. Mild left basilar opacities that could represent atelectasis. 2. Trace left pleural effusion or hemothorax. 3. Fractures of the left lateral fifth through seventh ribs as described. Electronically authenticated by: Carline PADRON Date: 09/19/2024 00:14 Dictated By: Juliano Padron M.D. Signed By: 09/19/24 0017 DD/ 0014 TD/TT: Performance Makeup Artist: [place] [address] XRay Report Signed Patient: JACOB ROBERTO MR#: [id number] : 1975 Acct:[id number] Age/Sex: 49 / M ADM Date: 09/18/24 Loc: ER Attending Dr: Ordering Physician: Marcial Denson M.D. Date of Service: 09/18/24 Procedure(s): XR chest 1V Accession Number(s): [id number] cc: Adarsh Hall M.D. ; Marcial Denson M.D. [place] [id number] Patient Name: TERA ROBERTO MRN: [id number] date: 1975 Sex: M Assigned Patient Location: ER Current Patient Loca tion: ER Accession/Order Numb er: [id number] Exam Date: 09/18/2024 22:58 Report Date: 09/19/2024 00:14 At the request of: MARCIAL DENSON Procedure: XR chest 1V EXAM: XR chest 1V HISTORY: Pain, recen t rib fracture COMPARISON: Chest an d left rib series dated 09/17/2024. TECHNIQUE: One view of the chest was obtained. FINDINGS: The cardia c silhouette is stable in size. There are mild left basilar opacities. There is no significant pneumothorax or right pleural effusion. There is a trace lef t pleural effusion. There are mildly displaced fractures of the lateral left fif th through seventh ribs. X R/XR chest 1V IMPRESSION: 1. Mild left basilar opacities that could represent atelectasis. 2. Trace left pleura l effusion or hemothorax. 3. Fractures of the left lateral fifth through seventh ribs as described. Electronically authenticated by: Carline PADRON Date: 09/19/2024 00:14 Dictated By: Juliano Padron M.D. Signed By: 09/19/24 0017 DD/ 0014 TD/TT: Performance Makeup Artist: XR chest 2V Reviewed date:10/04/2024 07:31:02 PM Interpretation: Performing Lab: Notes/Report: Source Facility: [place] [address] [place] [address] XRay Report Signed Patient: TERA ROBERTO MR#: [id number] : 1975 Acct:[id number] Age/Sex: 49 / M ADM Date: 10/04/24 Loc: RAD Attending Dr: Adarsh Hall M.D. Ordering Physician: Adarsh Hall M.D. Date of Service: 10/04/24 Procedure(s): XR chest 2V Accession Number(s): [id number] cc: Adarsh Hall M.D. [place] [address] Patient Name: TERA ROBERTO [facility]:[id number] date: 1975 Sex: M Assigned Patient Location: [facility] Current Patient Location: [facility] Accession/Order Number: [id number] Exam Date: 10/04/2024 10:53 Report Date: 10/04/2024 11:04 At the request of: ADARSH HALL MD Procedure: XR ribs LT 2V PA AND LATERAL CHEST: CLINICAL HISTORY: Patient fell 3 weeks ago on stairs. Left rib fractures. Continued anterior and lateral pain COMPARISON: 09/18/2024 There is a small left pleural effusion which may be minimally larger. Adjacent basilar atelectasis is possible. A trace amount of pleural fluid on the right is also suspected. There is no additional consolidation. No pneumothorax is seen. The cardiac, hilar and mediastinal silhouettes are within normal limits. There is no vascular congestion. There is slight dextroscoliotic curvature and degenerative changes at the spine. XR/XR chest 2V IMPRESSION: PLEURAL EFFUSIONS, LEFT LARGER THAN RIGHT. POTENTIAL MINIMAL LEFT BASILAR ATELECTASIS. NO PNEUMOTHORAX. LEFT RIBS - 3 views COMPARISON: 09/17/2024 AP and both oblique views of the ribs were obtained. There are multiple slightly displaced lateral left rib fractures involving the fifth through eighth ribs. The sixth is still the most displaced. No additional fractures are noted. There is a small left pleural effusion as well as basilar atelectasis. IMPRESSION: MULTIPLE BILATERAL LEFT RIB FRACTURES, SIMILAR THE PRIOR. MILD LEFT BASILAR PLEURAL-PARENCHYMAL CHANGE. Impression dictated by: Mariaulisa Brizuela M.D.10/04/2024 11:04 AM Dictation Location: [place] [address] Electronically authenticated by: [id number] Y Date: 10/04/2024 11:04 Dictated By: Marialuisa Brizuela M.D. Signed By: 10/04/24 1107 DD/ 1104 TD/TT: Performance Makeup Artist: [place] [address] XRay Report Signed Patient: JACOB ROBERTO MR#: [id number] : 1975 Acct:[id number] Age/Sex: 49 / M ADM Date: 10/04/24 Loc: RAD Attending Dr: Serafin Hall M.D. Ordering Physician: Adarsh Hall M.D. Date of Service: 10/04/24 Procedure(s): XR chest 2V Accession Number(s): [id number] cc: Adarsh Hall M.D. [address] [address] Patient Name: TERA ROBERTO MRN: [id number] date: 1975 Sex: M Assigned Patient Location: [facility] Current Patient Loca tion: RAD Accession/Order Numb er: [id number] Exam Date: 10/04/2024 10:53 Report Date: 10/04/2024 11:04 At the request of: ADARSH HALL MD Procedure: XR ribs LT 2V PA AND LATERAL CHEST: CLINICAL HISTORY: Pa jose david fell 3 weeks ago on stairs. Left rib fractures. Continued anterior a nd lateral pain COMPARISON: 09/18/2024 There is a small lef t pleural effusion which may be minimally larger. Adjacent basilar atelectasis is possible. A trace amount of pleural fluid on the right is also suspected. There is no additional consolidation. No pneumothorax is seen . The cardiac, hilar and mediastinal silhouettes are within normal limits . There is no vascular congestion. There is slight dextroscoliotic curv ature and degenerative changes at the spine. X R/XR chest 2V IMPRESSION: PLEURAL EFFUSIONS, L EFT LARGER THAN RIGHT. POTENTIAL MINIMAL LE FT BASILAR ATELECTASIS. NO PNEUMOTHORAX. LEFT RIBS - 3 views COMPARISON: 09/17/2024 AP and both oblique views of the ribs were obtained. There are multiple slightly displaced lateral left rib fractures involving the fifth through eighth ribs. The six th is still the most displaced. No additional fractures are noted. There is a small left pleural effusion as well as basilar atelectasis. IMPRESSION: MULTIPLE BILATERAL L EFT RIB FRACTURES, SIMILAR THE PRIOR. MILD LEFT BASILAR PLEURAL-PARENCHYMAL CHANGE. Impression dictated by: Marialuisa Brizuela M.D.10/04/2024 11:04 AM Dictation Location: [place] [address] Electronically authenticated by: [id number] Y Date: 10/04/2024 11:04 Dictated By: Marialuisa Brizuela M.D. Signed By: 10/04/24 1107 DD/ 1104 TD/TT: Performance Makeup Artist: ECG 12 lead Reviewed date:09/21/2024 06:50:48 AM Interpretation: Performing Lab: Notes/Report: Source Facility: [place] [address] [place] [address] Electrocardiograph Report Signed Patient: TERA ROBERTO MR#: [id number] : 1975 Acct:[id number] Age/Sex: 49 / M ADM Date: 09/17/24 Loc: [place] 218-[address]: Adarsh Hall M.D. Ordering Physician: Marcial Denson M.D. Date of Service: 09/17/24 Procedure(s): ECG 12 lead Accession Number(s): [id number] cc: [facility] Test Date: 2024-09-17 Pat Name: TERA ROBERTO Department: Room: - Gender: Male Design Eng: : 1975 Requested By: 1030 Order Number: [id number] Reading MD: ADARSH HALL Measurements Intervals Mclean Rate: 109 P: 60 MS: 174 QRS: 57 QRSD: 78 T: 58 QT: 334 QTc: 398 Interpretive Statements 1120 Sinus tachycardia 1570 with occasional ventricular premature complexes 4068 Nonspecific Twave abnormality 9140 abnormal rhythm ECG Compared to ECG 10/05/2023 03:38:08 Ventricular premature complex(es) now present Electronically Signed On 09-21-2024 5:21:27 EST by ADARSH HALL Dictated By: Adarsh Hall M.D. Signed By: 09/21/24 0521 DD/ 0634 TD/TT: Performance Makeup Artist: [place] [address] Electrocardiograph Report Signed Patient: JACOB ROBERTO MR#: [id number] : 1975 Acct:[id number] Age/Sex: 49 / M ADM Date: 09/17/24 Loc: [place] 218-[address]: Dougla s Hoy M.D. Ordering Physician: Marcial Denson M.D. Date of Service: 09/17/24 Procedure(s): ECG 12 lead Accession Number(s): [id number] cc: [facility] Test Date: 2024-09-17 Pat Name: TERA SIFUENTES Department: 99 Room: - Gender: Male Design Eng: : 1975 Requ ested By: 1030 Order Number: [id number] Reading MD: ADARSH HALL Measurements Intervals Mclean Rate: 109 P: 60 MS: 174 QRS: 57 QRSD: 78 T: 58 QT: 334 QTc: 398 Interpretive Statements 1120 Sinus tachycardia 1570 with occasional ventricular premature complexes 4068 Nonspecific Twa ve abnormality 9140 abnormal rhy thm ECG Compared to ECG 10/05/2023 03:38:08 Ventricular prematur e complex(es) now present Electronically Zeinab d On 09-21-2024 5:21:27 EST by ADARSH HALL Dictated By: Sukhdeep Hall M.D. Signed By: 09/21/24 0521 DD/ 0634 TD/TT: Performance Makeup Artist: Troponin I High Sensitivity Reviewed date:09/17/2024 01:00:38 PM Interpretation: Performing Lab: Notes/Report: [facility] , Troponin I High Sensitivity 15.5 4.0-76.1 pg/mL 99TH PERCENTILE = 76.2 PG/ML UNIVERSAL DEFINITION OF MYOCARDIAL INFARCTION. THE UPPER NOTE: HIGH-SENSITIVITY TROPONIN ASSAY IS NOT INTENDED TO BE PERCENTILE OF cTnI DISTRIBUTION IN A REFERENCE POPULATION, DIAGNOSIS. REFERENCE LIMIT (URL) OF TROPONIN, DEFINED THE 99TH CUT-OFF POINTS HAVE BEEN ESTABLISHED BASED ON THE FOURTH WITH OTHER DIAGNOSTIC AND CLINICAL INFORMATION. HAS BEEN CONFIRMED THE DECISION THRESHOLD FOR MT USED IN ISOLATION BUT SHOULD BE INTERPRETED IN CONJUNCTION Performing Lab: see note ML - [facility] PROF CHEM 8 (BAS METB) Reviewed date:09/17/2024 01:00:38 PM Interpretation: Performing Lab: Notes/Report: [facility] , Sodium 138 136-145 mmol/L Potassium 4.5 3.5-5.1 mmol/L Chloride 100 98-107 mmol/L Carbon Dioxide 23.1 21.0-32.0 mmol/L Anion Gap 19.4 Glucose 218 74-106 mg/dL Blood Urea Nitrogen 17.0 7.0-18.0 mg/dL Creatinine 0.94 0.70-1.30 mg/dL Estimated GFR ( Naina >60 >=60 mL/min/1.73m 2 Estimated GFR (Non- Jessica >60 >=60 mL/min/1.73m 2 BUN Creatinine Ratio 18.1 Calcium 9.4 8.5-10.1 mg/dL Performing Lab: see note ML - [facility] LB CBC AUTO DIFF Reviewed date:09/17/2024 01:00:38 PM Interpretation: Performing Lab: Notes/Report: [facility] , White Blood Count 8.4 4.0-11.0 10 3/uL Red Blood Count 4.80 4.70-6.10 10 6/uL Hemoglobin 16.5 14.0-18.0 g/dL Hematocrit 47.2 42.0-54.0 % Mean Corpuscular Volume 98.3 80.0-94.0 fL Mean Corpuscular Hemoglobin 34.4 25.9-34.0 pg Mean Corpuscular HGB Conc 35.0 29.9-35.2 g/dL Red Cell Distribution Width 11.8 11.0-15.0 % Platelet Count 251 150-450 10 3/uL Mean Platelet Volume 9.3 9.5-13.5 fL Neutrophils Percent Auto 79.8 43.0-75.0 % Lymphocytes Percent Auto 11.3 20.5-60.0 % Monocytes Percent Auto 7.3 1.7-12.0 % Eosinophils Percent Auto 0.8 0.9-7.0 % Basophils Percent Auto 0.4 0.2-2.0 % Immature Granulocytes Pct Auto 0.4 0.0-0.5 % Neutrophils Absolute Auto 6.7 1.4-6.5 10 3/uL Lymphocytes Absolute Auto 1.0 1.2-3.8 10 3/uL Monocytes Absolute Auto 0.6 0.3-0.8 10 3/uL Eosinophils Absolute Auto 0.1 0.0-0.7 10 3/uL Basophils Absolute Auto 0.0 0.0-0.1 10 3/uL Immature Granulocytes Abs Auto 0.03 0.00-0.03 10 3/uL Performing Lab: see note ML - [facility] LB Troponin I High Sensitivity Reviewed date:05/15/2024 07:44:39 PM Interpretation: Performing Lab: Notes/Report: [facility] , Troponin I High Sensitivity 6.6 4.0-76.1 pg/mL UNIVERSAL DEFINITION OF MYOCARDIAL INFARCTION. THE UPPER NOTE: HIGH-SENSITIVITY TROPONIN ASSAY IS NOT INTENDED TO BE HAS BEEN CONFIRMED THE DECISION THRESHOLD FOR MT CUT-OFF POINTS HAVE BEEN ESTABLISHED BASED ON THE FOURTH PERCENTILE OF cTnI DISTRIBUTION IN A REFERENCE POPULATION, USED IN ISOLATION BUT SHOULD BE INTERPRETED IN CONJUNCTION DIAGNOSIS. REFERENCE LIMIT (URL) OF TROPONIN, DEFINED THE 99TH WITH OTHER DIAGNOSTIC AND CLINICAL INFORMATION. 99TH PERCENTILE = 76.2 PG/ML Performing Lab: see note ML - [facility] LB TSH Reviewed date:05/15/2024 07:44:39 PM Interpretation: Performing Lab: Notes/Report: [facility] , Thyroid Stimulating Hormone 3.598 0.358-3.740 uIU/mL Performing Lab: see note ML - [facility] LB T4 Reviewed date:05/15/2024 07:44:39 PM Interpretation: Performing Lab: Notes/Report: [facility] , T4 Thyroxine 5.50 4.50-12.10 ug/dL Performing Lab: see note ML - [facility] LB PROF 14(COMP METB) Reviewed date:05/15/2024 07:44:39 PM Interpretation: Performing Lab: Notes/Report: [facility] , Sodium 136 136-145 mmol/L Potassium 4.1 3.5-5.1 mmol/L Chloride 99 98-107 mmol/L Carbon Dioxide 26.3 21.0-32.0 mmol/L Anion Gap 14.8 Glucose 224 74-106 mg/dL Blood Urea Nitrogen 24.0 7.0-18.0 mg/dL Creatinine 1.00 0.70-1.30 mg/dL Estimated GFR ( Naina >60 >=60 mL/min/1.73m 2 Estimated GFR (Non- Jessica >60 >=60 mL/min/1.73m 2 BUN Creatinine Ratio 24.0 Calcium 9.4 8.5-10.1 mg/dL Bilirubin Total 0.5 0.2-1.0 mg/dL Aspartate Amino Transferase 38 15-37 U/L Alanine Aminotransferase 60 16-63 U/L Alkaline Phosphatase 147 46-116 U/L Total Protein 7.4 6.4-8.2 g/dL Albumin Level 3.6 3.4-5.0 g/dL Globulin 3.8 Albumin Globulin Ratio 0.9 Performing Lab: see note ML - [facility] FREE T3 Reviewed date:05/15/2024 07:44:39 PM Interpretation: Performing Lab: Notes/Report: [facility] , Free T3 2.77 2.18-3.98 pg/mL Performing Lab: see note ML - [facility] COVID-19, Flu A+B IH Reviewed date:10/04/2024 07:31:02 PM Interpretation: Performing Lab: Notes/Report: COVID neg FLU A neg FLU B neg Control present FREE T4 Reviewed date:03/15/2024 01:03:11 PM Interpretation: Performing Lab: Notes/Report: [facility] , Free T4 0.80 0.76-1.46 ng/dL Performing Lab: see note ML - [facility] FREE T3 Reviewed date:03/18/2024 10:01:19 AM Interpretation: Performing Lab: Notes/Report: [facility] , Free T3 3.02 2.18-3.98 pg/mL Performing Lab: see note ML - [facility] LB LIPID PROFILE Reviewed date:03/18/2024 10:01:19 AM Interpretation: Performing Lab: Notes/Report: [facility] , Triglycerides 566 <=150 mg/dL Cholesterol 188 <=200 mg/dL HDL Cholesterol 38 40-60 mg/dL <40 mg/dl - HIGH CARDIOVASCULAR RISK > or =60 mg/dl - LOW CARDIOVASCULAR RISK VLDL CHOLESTEROL 113.2 Chol HDL Ratio 4.9 4.4 - 7.1 AVERAGE RISK >11.0 HIGH RISK 3.3 - 4.4 LOW RISK 7.1 - 11.0 MODERATE RISK Performing Lab: see note ML - [facility] LB GLYCOHEMOGLOBIN A1C Reviewed date:03/15/2024 01:03:11 PM Interpretation: Performing Lab: Notes/Report: [facility] , Glycohemoglobin A1C 9.3 4.5-6.2 % ADA RECOMMENDED LIMIT 4.0 - 6.0 ACTION SUGGESTED > 7.0 ADA THERAPEUTIC TARGET < 7.0 Estimated Average Glucose 220 Performing Lab: see note ML - [facility] LB CBC AUTO DIFF Reviewed date:03/15/2024 01:03:11 PM Interpretation: Performing Lab: Notes/Report: [facility] , White Blood Count 6.3 4.0-11.0 10 3/uL Red Blood Count 4.32 4.70-6.10 10 6/uL Hemoglobin 14.9 14.0-18.0 g/dL Hematocrit 43.7 42.0-54.0 % Mean Corpuscular Volume 101.2 80.0-94.0 fL Mean Corpuscular Hemoglobin 34.5 25.9-34.0 pg Mean Corpuscular HGB Conc 34.1 29.9-35.2 g/dL Red Cell Distribution Width 11.9 11.0-15.0 % Platelet Count 216 150-450 10 3/uL Mean Platelet Volume 9.6 9.5-13.5 fL Neutrophils Percent Auto 64.2 43.0-75.0 % Lymphocytes Percent Auto 22.9 20.5-60.0 % Monocytes Percent Auto 8.7 1.7-12.0 % Eosinophils Percent Auto 2.9 0.9-7.0 % Basophils Percent Auto 0.8 0.2-2.0 % Immature Granulocytes Pct Auto 0.5 0.0-0.5 % Neutrophils Absolute Auto 4.1 1.4-6.5 10 3/uL Lymphocytes Absolute Auto 1.4 1.2-3.8 10 3/uL Monocytes Absolute Auto 0.6 0.3-0.8 10 3/uL Eosinophils Absolute Auto 0.2 0.0-0.7 10 3/uL Basophils Absolute Auto 0.1 0.0-0.1 10 3/uL Immature Granulocytes Abs Auto 0.03 0.00-0.03 10 3/uL Performing Lab: see note ML - [facility] LB XR ribs LT 2V Reviewed date:10/04/2024 07:31:02 PM Interpretation: Performing Lab: Notes/Report: Source Facility: [facility]-[address] [place] [address] [place] [address] XRay Report Signed Patient: TERA ROBERTO MR#: [id number] : 1975 Acct:[id number] Age/Sex: 49 / M ADM Date: 10/04/24 Loc: RAD Attending Dr: Adarsh Hall M.D. Ordering Physician: Adarsh Hall M.D. Date of Service: 10/04/24 Procedure(s): XR ribs LT 2V Accession Number(s): [id number] cc: Adarsh Hall M.D. [place] [id number] Patient Name: TERA ROBERTO MRN: [facility]:[id number] date: 1975 Sex: M Assigned Patient Location: [facility] Current Patient Location: [facility] Accession/Order Number: [id number] Exam Date: 10/04/2024 10:53 Report Date: 10/04/2024 11:04 At the request of: ADARSH HALL MD Procedure: XR ribs LT 2V PA AND LATERAL CHEST: CLINICAL HISTORY: Patient fell 3 weeks ago on stairs. Left rib fractures. Continued anterior and lateral pain COMPARISON: 09/18/2024 There is a small left pleural effusion which may be minimally larger. Adjacent basilar atelectasis is possible. A trace amount of pleural fluid on the right is also suspected. There is no additional consolidation. No pneumothorax is seen. The cardiac, hilar and mediastinal silhouettes are within normal limits. There is no vascular congestion. There is slight dextroscoliotic curvature and degenerative changes at the spine. XR/XR ribs LT 2V IMPRESSION: PLEURAL EFFUSIONS, LEFT LARGER THAN RIGHT. POTENTIAL MINIMAL LEFT BASILAR ATELECTASIS. NO PNEUMOTHORAX. LEFT RIBS - 3 views COMPARISON: 09/17/2024 AP and both oblique views of the ribs were obtained. There are multiple slightly displaced lateral left rib fractures involving the fifth through eighth ribs. The sixth is still the most displaced. No additional fractures are noted. There is a small left pleural effusion as well as basilar atelectasis. IMPRESSION: MULTIPLE BILATERAL LEFT RIB FRACTURES, SIMILAR THE PRIOR. MILD LEFT BASILAR PLEURAL-PARENCHYMAL CHANGE. Impression dictated by: Marialuisa Brizuela M.D.10/04/2024 11:04 AM Dictation Location: [place] [address] Electronically authenticated by: [id number] Y Date: 10/04/2024 11:04 Dictated By: Marialuisa Brizuela M.D. Signed By: 10/04/24 1107 DD/ 1104 TD/TT: Performance Makeup Artist: [address] [address] XRay Report Signed Patient: JACOB ROBERTO MR#: [id number] : 1975 Acct:[id number] Age/Sex: 49 / M ADM Date: 10/04/24 Loc: RAD Attending Dr: Serafin Hall M.D. Ordering Physician: Adarsh Hall M.D. Date of Service: 10/04/24 Procedure(s): XR rib s LT 2V Accession Number(s): [id number] cc: Adarsh Hall M.D. [place] [id number] Patient Name: TERA ROBERTO MRN: [id number] date: 1975 Sex: M Assigned Patient Location: RAD Current Patient Loca tion: RAD Accession/Order Numb er: [id number] Exam Date: 10/04/2024 10:53 Report Date: 10/04/2024 11:04 At the request of: ADARSH HALL MD Procedure: XR ribs LT 2V PA AND LATERAL CHEST: CLINICAL HISTORY: Pa tient fell 3 weeks ago on stairs. Left rib fractures. Continued anterior a nd lateral pain COMPARISON: 09/18/2024 There is a small lef t pleural effusion which may be minimally larger. Adjacent basilar atelectasis is possible. A trace amount of pleural fluid on the right is also suspected. There is no additional consolidation. No pneumothorax is seen . The cardiac, hilar and mediastinal silhouettes are within normal limits . There is no vascular congestion. There is slight dextroscoliotic curv ature and degenerative changes at the spine. X R/XR ribs LT 2V IMPRESSION: PLEURAL EFFUSIONS, L EFT LARGER THAN RIGHT. POTENTIAL MINIMAL LE FT BASILAR ATELECTASIS. NO PNEUMOTHORAX. LEFT RIBS - 3 views COMPARISON: 09/17/2024 AP and both oblique views of the ribs were obtained. There are multiple slightly displaced lateral left rib fractures involving the fifth through eighth ribs. The six th is still the most displaced. No additional fractures are noted. There is a small left pleural effusion as well as basilar atelectasis. IMPRESSION: MULTIPLE BILATERAL L EFT RIB FRACTURES, SIMILAR THE PRIOR. MILD LEFT BASILAR PLEURAL-PARENCHYMAL CHANGE. Impression dictated by: Marialuisa Brizuela M.D.10/04/2024 11:04 AM Dictation Location: [place] [address] Electronically authenticated by: [id number] Y Date: 10/04/2024 11:04 Dictated By: Marialuisa Brizuela M.D. Signed By: 10/04/24 1107 DD/ 1104 TD/TT: Performance Makeup Artist: BNP Reviewed date:05/15/2024 07:44:39 PM Interpretation: Performing Lab: Notes/Report: [facility] , NT Pro B Type Natriuretic Pept 41.0 <=900.0 pg/mL Performing Lab: see note ML - [facility] LB XR lumbar spine min 4V Reviewed date:12/03/2024 07:21:06 PM Interpretation: Performing Lab: Notes/Report: Source Facility: [place] [address] [place] [address] XRay Report Signed Patient: TERA ROBERTO MR#: [id number] : 1975 Acct:[id number] Age/Sex: 49 / M ADM Date: 12/03/24 Loc: RAD Attending Dr: Esther Hernández M.D. Ordering Physician: Esther Hernández M.D. Date of Service: 12/03/24 Procedure(s): XR lumbar spine min 4V Accession Number(s): [id number] cc: Esther Hernández M.D.; Adarsh Hall M.D. [place] [address] Patient Name: TERA ROBERTO MRN: [id number] date: 1975 Sex: M Assigned Patient Location: RAD Current Patient Location: PM Accession/Order Number: [id number] Exam Date: 12/03/2024 16:04 Report Date: 12/03/2024 16:05 At the request of: ESTHER HERNÁNDEZ MD Procedure: XR lumbar spine min 4V LUMBAR SPINE - 5 views CLINICAL HISTORY: Lumbago COMPARISON: Lumbar spine 07/28/2019 FINDINGS: Vertebral body heights appear maintained. Scattered endplate and facet joint degenerative changes with moderate disc space L5-S1. XR/XR lumbar spine min 4V IMPRESSION: DEGENERATIVE CHANGES INVOLVING THE LUMBAR SPINE WITH MODERATE DISC SPACE NARROWING L5-S1. FINDINGS ARE SIMILAR TO THE PRIOR STUDY. Impression dictated by: Wei Varma Jr., DMarlynOMarlyn 12/03/2024 4:05 PM Dictation Location: [place] [address] Electronically authenticated by: [id number] Y Date: 12/03/2024 16:05 Dictated By: Wei Varma M.D. Signed By: 12/03/24 1607 DD/ 04 TD/TT: Performance Makeup Artist: [place] [address] XRay Report Signed Patient: JACOB ROBERTO MR#: [id number] : 1975 Acct:[id number] Age/Sex: 49 / M ADM Date: 12/03/24 Loc: RAD Attending Dr: Willie Hernández M.D. Ordering Physician: Esther Hernández M.D. Date of Service: 12/03/24 Procedure(s): XR lum bar spine min 4V Accession Number(s): [id number] cc: Joe Hernández M.D.; Adarsh Hall M.D. [address] [address] Patient Name: TERA ROBERTO MRN: [id number] date: 1975 Sex: M Assigned Patient Location: RAD Current Patient Loca tion: PM Accession/Order Numb er: [id number] Exam Date: 12/03/2024 16:04 Report Date: 12/03/2024 16:05 At the request of: ESTHER HERNÁNDEZ MD Procedure: XR lumbar spine min 4V LUMBAR SPINE - 5 views CLINICAL HISTORY: Lumbago COMPARISON: Lumbar s pine 07/28/2019 FINDINGS: Vertebral body heights appear maintained. Scattered endplate and facet joint degenera tive changes with moderate disc space L5-S1. X R/XR lumbar spine min 4V IMPRESSION: DEGENERATIVE CHANGES INVOLVING THE LUMBAR SPINE WITH MODERATE DISC SPACE NARROWING L5-S1. FIN DINGS ARE SIMILAR TO THE PRIOR STUDY. Impression dictated by: Wei Varma Jr., D.O. 12/03/2024 4:05 PM Dictation Location: [place] [address] Electronically authenticated by: [id number] Y Date: 12/03/2024 16:05 Dictated By: Wei Varma M.D. Signed By: 12/03/247 DD/ 04 TD/TT: Performance Makeup Artist: XR sacrum coccyx min 2V Reviewed date:12/03/2024 07:21:06 PM Interpretation: Performing Lab: Notes/Report: Source Facility: [place] [address] XRay Report Signed Patient: TERA ROBERTO MR#: [id number] : 1975 Acct:[id number] Age/Sex: 49 / M ADM Date: 12/03/24 Loc: RAD Attending Dr: Esther Hernández M.D. Ordering Physician: Esther Hernández M.D. Date of Service: 12/03/24 Procedure(s): XR sacrum coccyx min 2V Accession Number(s): [id number] cc: Esther Hernández M.D.; Adarsh Hall M.D. [place] [address] Patient Name: TERA ROBERTO MRN: [id number] date: 1975 Sex: M Assigned Patient Location: [facility] Current Patient Location: PM Accession/Order Number: [id number] Exam Date: 12/03/2024 16:05 Report Date: 12/03/2024 16:06 At the request of: ESTHER HERNÁNDEZ MD Procedure: XR sacrum coccyx min 2V SACRUM AND COCCYX - - 6 views CLINICAL HISTORY: Lumbago COMPARISON: None FINDINGS: Mild degenerative changes of the SI joints. Sacral foramina appear intact. No displaced coccygeal fracture. XR/XR sacrum coccyx min 2V IMPRESSION: MILD DEGENERATIVE CHANGES INVOLVING THE SI JOINTS WITHOUT ACUTE BONY PROCESS. Impression dictated by: Wei Varma Jr., D.O. 12/03/2024 4:06 PM Dictation Location: [place] [address] Electronically authenticated by: [id number] Y Date: 12/03/2024 16:06 Dictated By: Wei Varma M.D. Signed By: 12/03/248 DD/ 05 TD/TT: Performance Makeup Artist: [place] [address] XRay Report Signed Patient: JACOB ROBERTO MR#: [id number] : 1975 Acct:[id number] Age/Sex: 49 / M ADM Date: 12/03/24 Loc: RAD Attending Dr: Willie Hernández M.D. Ordering Physician: Esther Hernández M.D. Date of Service: 12/03/24 Procedure(s): XR sac rum coccyx min 2V Accession Number(s): [id number] cc: Joe Hernández M.D.; Adarsh Hall M.D. [place] [id number] Patient Name: TERA ROBERTO MRN: [id number] date: 1975 Sex: M Assigned Patient Location: RAD Current Patient Loca tion: PM Accession/Order Numb er: [id number] Exam Date: 12/03/2024 16:05 Report Date: 12/03/2024 16:06 At the request of: ESTHER HERNÁNDEZ MD Procedure: XR sacrum coccyx min 2V SACRUM AND COCCYX - - 6 views CLINICAL HISTORY: Lumbago COMPARISON: None FINDINGS: Mild degenerative ch anges of the SI joints. Sacral foramina appear intact. No displaced coccyge al fracture. X R/XR sacrum coccyx min 2V IMPRESSION: MILD DEGENERATIVE CH ANGES INVOLVING THE SI JOINTS WITHOUT ACUTE BONY PROCESS. Impression dictated by: Wei Varma Jr., D.O. 12/03/2024 4:06 PM Dictation Location: [place] [address] Electronically authenticated by: [id number] Y Date: 12/03/2024 16:06 Dictated By: Wei Varma M.D. Signed By: 12/03/24 1608 DD/ 1606 TD/TT: Performance Makeup Artist: CT chest wo con Reviewed date:10/07/2024 12:30:54 PM Interpretation: Performing Lab: Notes/Report: Source Facility: [place] [address] CT Scan Report Signed Patient: TERA ROBERTO MR#: [id number] : 1975 Acct:[id number] Age/Sex: 49 / M ADM Date: 10/05/24 Loc: CT Attending Dr: Adarsh Hall M.D. Ordering Physician: Adarsh Hall M.D. Date of Service: 10/05/24 Procedure(s): CT chest wo con Accession Number(s): [id number] cc: Adarsh Hall M.D. [place] [address] Patient Name: TERA ROBERTO MRN: [id number] date: 1975 Sex: M Assigned Patient Location: CT Current Patient Location: CT Accession/Order Number: [id number] Exam Date: 10/05/2024 13:13 Report Date: 10/05/2024 13:27 At the request of: ADARSH HALL MD Procedure: CT chest wo con CT CHEST WITHOUT CONTRAST CLINICAL DATA: Cough and left rib pain. History of left rib fractures 3 weeks ago. COMPARISON: Chest x-ray 10/04/2024 Spiral images were obtained through the chest without contrast. Images were reviewed using both narrow and wide window settings. This CT exam was performed using one or more following dose reduction techniques: Automated exposure control, adjustment of the mA and/or kV according to patient size, or use of iterative reconstruction technique. The heart is within normal limits for size. There is a trace amount of pericardial fluid. Coronary disease is seen. There is no aortic aneurysm. There are no enlarged nodes. There are mildly displaced fractures involving the lateral aspect of the fifth through seventh ribs. There is a nondisplaced fracture at the lateral eighth rib. There is also subtle deformity at the lateral aspect of the third and fourth ribs on that side which might be posttraumatic. No significant callus formation is present. There is mild endplate spurring at the spine. There is hypertrophy at the costo vertebral junction at T7 on the left. A small layering left pleural effusion is present. There is adjacent consolidation within the left lower lobe. There is also atelectasis adjacent to mildly elevated right hemidiaphragm. No pneumothorax is seen. Limited cuts through the upper abdomen show possible mild fatty liver. CT/CT chest wo con IMPRESSION: MULTIPLE ACUTE LEFT LATERAL RIB FRACTURES. LEFT PLEURAL EFFUSION WITH ADJACENT LOWER LOBE CONSOLIDATION. RIGHT BASILAR ATELECTASIS. Impression dictated by: Marialuisa Brizuela M.D.10/05/2024 1:27 PM Dictation Location: [place] [address] Electronically authenticated by: [id number] Y Date: 10/05/2024 13:27 Dictated By: Marialuisa Brizuela M.D. Signed By: 10/05/24 1329 DD/ 1327 TD/TT: Performance Makeup Artist: [place] [address] CT Scan Report Signed Patient: JACOB ROBERTO MR#: [id number] : 1975 Acct:[id number] Age/Sex: 49 / M ADM Date: 10/05/24 Loc: CT Attending Dr: Serafin Hall M.D. Ordering Physician: Adarsh Hall M.D. Date of Service: 10/05/24 Procedure(s): CT rené st wo con Accession Number(s): [id number] cc: Adarsh Hall M.D. [place] [address] Patient Name: TERA ROBERTO MRN: [id number] date: 1975 Sex: M Assigned Patient Location: CT Current Patient Loca tion: CT Accession/Order Gautam er: [id number] Exam Date: 10/05/2024 13:13 Report Date: 10/05/2024 13:27 At the request of: ADARSH HALL MD Procedure: CT chest wo con CT CHEST WITHOUT CONTRAST CLINICAL DATA: Cough and left rib pain. History of left rib fractures 3 weeks ago. COMPARISON: Chest x- ray 10/04/2024 Spiral images were obtained through the chest without contrast. Images were reviewed using both narrow and wide window settings. This CT exam was performed using one or more following dose reduction techniques: Automated exposure control, adjustment of the mA and/or kV according to patient size, or use of iterative reconstruction technique. The heart is within normal limits for size. There is a trace amount of pericardial fluid. Coronary disease is seen. There is no aortic aneurysm. There are no enlarge d nodes. There are mildly displaced fractures involving the lateral aspect o f the fifth through seventh ribs. There is a nondisplaced fracture at the late ral eighth rib. There is also subtle deformity at the lateral aspect of th e third and fourth ribs on that side which might be posttraumatic. No significant callus formation is present. There is mild endplate spurring at the spine. There is hypertrophy at the costo vertebral junction at T7 on th e left. A small layering lef t pleural effusion is present. There is adjacent consolidation within the left lower lobe. There is also atelectasis adjacent to mildly elevated r ight hemidiaphragm. No pneumothorax is seen. Limited cuts through the upper abdomen show possible mild fatty liver. C T/CT chest wo con IMPRESSION: MULTIPLE ACUTE LEFT LATERAL RIB FRACTURES. LEFT PLEURAL EFFUSIO N WITH ADJACENT LOWER LOBE CONSOLIDATION. RIGHT BASILAR ATELECTASIS. Impression dictated by: Marialuisa Brizuela M.D.10/05/2024 1:27 PM Dictation Location: [place] [address] Electronically authenticated by: [id number] Y Date: 10/05/2024 13:27 Dictated By: Marialuisa Brizuela M.D. Signed By: 10/05/249 DD/ 1327 TD/TT: Performance Makeup Artist: CBC AUTO DIFF Reviewed date:05/15/2024 07:44:39 PM Interpretation: Performing Lab: Notes/Report: [facility] , White Blood Count 5.5 4.0-11.0 10 3/uL Red Blood Count 4.68 4.70-6.10 10 6/uL Hemoglobin 16.1 14.0-18.0 g/dL Hematocrit 47.5 42.0-54.0 % Mean Corpuscular Volume 101.5 80.0-94.0 fL Mean Corpuscular Hemoglobin 34.4 25.9-34.0 pg Mean Corpuscular HGB Conc 33.9 29.9-35.2 g/dL Red Cell Distribution Width 11.6 11.0-15.0 % Platelet Count 206 150-450 10 3/uL Mean Platelet Volume 9.6 9.5-13.5 fL Neutrophils Percent Auto 60.4 43.0-75.0 % Lymphocytes Percent Auto 28.5 20.5-60.0 % Monocytes Percent Auto 7.7 1.7-12.0 % Eosinophils Percent Auto 2.2 0.9-7.0 % Basophils Percent Auto 0.7 0.2-2.0 % Immature Granulocytes Pct Auto 0.5 0.0-0.5 % Neutrophils Absolute Auto 3.3 1.4-6.5 10 3/uL Lymphocytes Absolute Auto 1.6 1.2-3.8 10 3/uL Monocytes Absolute Auto 0.4 0.3-0.8 10 3/uL Eosinophils Absolute Auto 0.1 0.0-0.7 10 3/uL Basophils Absolute Auto 0.0 0.0-0.1 10 3/uL Immature Granulocytes Abs Auto 0.03 0.00-0.03 10 3/uL Performing Lab: see note ML - [facility] Reason For Referral Diagnosis 1 Multiple rib fractur es (S22.49XA) Referral Organization [facility] Referring Provider First Name Jj Referring Provider Last Name [facility] Referring Provider [facility] icine Referred Provider Specialty Orthopedic S urgery Referral Priority Routine Diagnosis 1 Rib fractures (S22.3 9XA) Referral Organization [facility] Referring Provider First Name Jj Referring Provider Last Name [facility] Referring Provider Speciality [facility] steve Referred Organization [facility] Referred Provider [place] Referred Address [address] [facility],[place], [place],[address],[place] Referred Provider Specialty Orthopedic S urgery Referral Priority Routine Diagnosis 1 Rib fractures (S22.3 9XA) Referral Organization [facility] Referring Provider First Name Jj Referring Provider Last Name Rafael Referring Provider Speciality [facility] steve Referred Provider Pain Management, TB Referred Provider Specialty Pain Medicin e Referral Priority Routine Medications Medication SIG (Take, Route, Frequency, Duration) Notes Start Date End Date Status oxyCODONE-Acetaminophen 5-325 MG 1 tablet as needed Orally every 4 hrs for 7 days S22.39XA S22.39XA 09/26/2024 Active Pantoprazole Sodium 40 MG TAKE ONE TABLE T BY MOUTH BEFORE BREAKFAST AND DINNER Oral for 30 Days Active Spironolactone 25 MG 1/2 Oral Once a day for 30 days Active tiZANidine HCl 4 MG TAKE 1 TABLET BY HUMPHREY TH EVERY 6 HOURS NEEDED for 30 Active Aspirin Low Dose 81 MG CHEW AND SWALLOW ONE TABLET BY MOUTH EVERY DAY WITH BREAKFAST Oral for 30 Days Active Atorvastatin Calcium 80 MG TAKE ONE TABL ET BY MOUTH EVERY NIGHT AT BEDTIME Oral for 30 Days Active Triamcinolone Acetonide 0.1 % 1 application Externally Twice a day for 30 01/26/2024 Active Carvedilol 6.25 MG 1 tablet Oral Twice a day for 30 days Active Venlafaxine HCl ER 75 MG TAKE 1 CAPSULE BY MOUTH EVERY DAY for 90 Active Diclofenac Sodium 75 MG 1 tablet as need ed Orally Twice a day for 30 days 07/23/2024 Active Entresto 49-51 MG 1 tablet Oral Twice a day for 30 days Active Glimepiride 4 MG TAKE 2 TABLETS BY MO UTH ONCE EVERYDAY WITH BREAKFAST for 90 days Active Jardiance 25 MG TAKE 1 TABLET BY HUMPHREY TH EVERY DAY for 30 Active Levsin/SL 0.125 MG 1 tablet under the tongue and allow to dissolve as needed Sublingual QID 04/18/2024 Active Social History Tobacco Use: Social History [...] you interested in quitting? Ready to quit Alcohol Screen (Audit-C) Question Answer Notes Did you have a drink contain ing alcohol in the past year? Yes How often did you have 6 or more drinks on one occasion in the past year? Two to three times per week (3 points) How many drinks did you have on a typical day when you were drinking in the past year? 1 or 2 drinks (0 point) How often did you have a dri nk containing alcohol in the past year? Daily or almost daily (4 points) Points 7 Interpretation Positive AUDIT-C (Standard) Question Answer Notes Did you have a drink containing alcohol in the p ast year? No Points 0 Interpretation Negative Problems Problem Type SNOMED Code ICD Code Onset Dates Problem Status W/U Status Risk Notes Problem Atelectasis (76410149) Atelectasis (J98.11) Active confirmed Problem Hypertension (89159316) Hypertension (I10) Active confirmed Problem Dyslipidemia (277521577) Dyslipidemia (E78.5) Active confirmed Problem Coronary artery disease (29523823) Coronary artery disease (I25.10) Active confirmed Problem Smoker (83660354) Smoker (F17.200) Active confi rmed Problem Sleep apnea (88618000) Sleep apnea (G47.30) Active confirmed Problem Heart failure (06044153) Heart failure (I50.9) Active confirmed Problem Back pain (418497268) Back pain (M54.9) Active confirmed Problem Alcohol abuse (65755840) Alcohol abuse (F10.10) Active confirmed Problem Type II diabetes mellitus uncontrolled (287919081) Diabetes type 2, uncontrolled (E11.65) Active confirmed Problem Diverticulitis (10990700) Diverticulitis (K57.92) Active confirmed Problem Gastroenteritis (60686387) Gastroenteritis (K52.9) Active confirmed Problem Closed fracture of multiple left ribs (27291938609509919) Closed fracture of multiple ribs of left side, initial encounter (S22.42XA) Active confirmed Problem Acute diarrhea (365336772) Acute diarrhea (R19.7) Active confirmed Problem Irritable bowel (57646369) Irritable bowel (K58.9) Active confirmed Problem Heat rash (65581748) Heat rash (L74.0) Active c onfirmed Problem Fracture of rib (23347756) Rib fractures (S22.39XA) Active confirmed Problem Tobacco dependence i n remission (557205640) 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) Active confirmed Problem Essential hypertension (75061592) BP (high blood pressure) (I10) Active confirmed Problem hypercholesterolemia (disorder) (63365751) Hypercholesteremia (E78.00) Active confirmed Problem Hypercholesterolemia (44314827) Hypercholesterolemia (E78.00) Active confirmed Problem Mixed anxiety and depressive disorder (942335355) Anxiety and depression (F41.8) Active confirmed Problem Myalgia (96837415) Myalgia (M79.10) Active conf irmed Problem Diabetes mellitus (81868192) Diabetes mellitus (E11.9) Active confirmed Problem Esophageal thick ening (K22.89) Active confirmed Vital Signs Heart Rate 92 /min 05/23/2024 Temperature 98.4 degrees Fahrenheit 05/23/2024 Oximetry 96 % 05/23/2024 Blood pressure diastolic 90 mm Hg 12/10/2024 Height 69 in 12/10/2024 Blood pressure systolic 150 mm Hg 12/10/2024 Weight 259 lbs 12/10/2024 BMI 38.24 kg/m2 12/10/2024 Encounters Encounter Location Date Provider Diagnosis [facility] [address] [place] [address] 03/12/2024 Jj Hall Wellness examination Z01.89 [facility] [address] [place] [address] 03/15/2024 Jj saud [facility] [address] [place] [address] 04/18/2024 Jj Hall [facility] [address] [place] [address] 05/15/2024 Jj saud [facility] [address] [place] [address] 09/07/2024 Jj [facility] [address] [place] [address] 09/18/2024 Jj Hoy [facility] [address] [facility] [place] [address] 09/18/2024 Jj saud [facility] [address] [facility] [address] 09/19/2024 Jj saud [facility] [address] [facility] [place] [address] 09/26/2024 Jj Hall [facility] [address] [facility] [address] 10/04/2024 Jj Hoy Chest pain R07.9 ; R ib fractures S22.39XA ; Pleural effusion J90 and Fracture of rib of left side S22.32XA [facility] [address] [facility] [place] [address] 10/10/2024 Jj Hoy Rib fractures S22.39 XA [facility] [address] [facility] [address] 10/10/2024 Jj Hall [facility] [address] [facility] [place] [address] 10/18/2024 Jj Hall [facility] [address] [facility] [address] 10/18/2024 Jj Hall [facility] [address] [facility] [place] [address] 11/08/2024 Jj Hall [facility] [address] [facility] [place] [address] 11/16/2024 Jj Hoy Rib fractures S22.39 XA [facility] [address] [facility] [address] 11/21/2024 Jj Hartleyy [facility] [address] [place] [address] 01/26/2024 ADARSH HARTLEYY Heat rash L74.0 [facility] [address] [facility] [address] 02/20/2024 Jj Hall Heart failure I50.9 [facility] [address] [facility] [address] 04/19/2024 Jj Hoy Gastroenteritis K52. [address] [place] [address] 05/14/2024 Jj Hoy Sleep apnea G47.30 ; Hypertension I10 ; Diabetes type 2, uncontrolled E11.65 ; Hypercholesterolemia E78.00 and Anxiety and depression F41.8 [address] [place] [address] 05/23/2024 Jj Hoy Sinus congestion R09 .81 ; Ear pain H92.09 ; Acute non-recurrent sinusitis, unspecified location J01.90 and Nasal congestion R09.[address] [address] 07/23/2024 Jj Hoy Back pain M54.[address] [address] 08/22/2024 Jj Hoy Gastroenteritis K52. [address] [address] 09/21/2024 Jj Hoy Rib fractures S22.[address] [address] 10/04/2024 Jj Hoy Acute bronchitis, unspecified organism J20.9 and Rib fractures S22.39XA [address] [address] 10/18/2024 Jj Hoy Rib fractures S22.[address] [address] 11/16/2024 Jj Hoy Closed fracture of m ultiple ribs of left side, initial encounter S22.42XA [address] [address] 12/10/2024 Jj Hoy Myalgia M79.10 and B ack pain M54.9 Assessments Encounter Date Diagnosis (ICD Code) Assessment Notes Treatment Notes Treatment Clinical Notes Section Notes 01/26/2024 Heat rash (ICD-10 - L74.0) 02/20/2024 Heart failure (ICD-1 0 - I50.9) 04/19/2024 Gastroenteritis (ICD -10 - K52.9) Get plenty of rest. Stay hydrated by sucking on ice chips or taking small sips of water. You can also try drinking clear soda, clear broths or noncaffeinated sports drinks. Stop eating solid foods for a few hours to let your stomach settle. East back into eating by eating bland, majq-nn-wwbete foods like crackers, toast, gelatin, bananas, rice and chicken. Try to avoid foods/substances including dairy products, caffeine, alcohol, nicotine and fatty or highly seasoned foods. Medications such as ibuprofen or tylenol can make your stomach more upset, so use sparingly if at all. Also avoid szti-uyn-gwgvjwy anti-diarrheal medications because it can make it harder for your body to eliminate the virus. 05/14/2024 Sleep apnea (ICD-10 - G47.30) 05/14/2024 Hypertension (ICD-10 - I10) 05/23/2024 Sinus congestion (ICD-10 - R09.81) 05/23/2024 Ear pain (ICD-10 - H92.09) 07/23/2024 Back pain (ICD-10 - M54.9) 08/22/2024 Gastroenteritis (ICD -10 - K52.9) Get plenty of rest. Stay hydrated by sucking on ice chips or taking small sips of water. You can also try drinking clear soda, clear broths or noncaffeinated sports drinks. Stop eating solid foods for a few hours to let your stomach settle. East back into eating by eating bland, qhjh-lx-ghpest foods like crackers, toast, gelatin, bananas, rice and chicken. Try to avoid foods/substances including dairy products, caffeine, alcohol, nicotine and fatty or highly seasoned foods. Medications such as ibuprofen or tylenol can make your stomach more upset, so use sparingly if at all. Also avoid arxc-ofu-ybahbxu anti-diarrheal medications because it can make it harder for your body to eliminate the virus. 09/21/2024 Rib fractures (ICD-1 0 - S22.39XA) Try increase tizandint to 2 po Q 6 hours 10/04/2024 Acute bronchitis, unspecified organism (ICD-10 - J20.9) Rest and drink more liquids, especially water. You may use a humidifier or vaporizer to help keep the drainage moist. Omgm-bzz-qakglho Nasal Saline may help the stuffy and runny nose. Use Ibuprofen and or Tylenol as needed for fever, chills, body aches or pain. Children 5 years old should not be given trpj-koa-lcgpear cough and cold medications such as guaifenesin and dextromethorphan. If you're over age 5, you may try zirj-ypp-slockxs cold medications such as guaifenesin and dextromethorphan, or multi-symptom cold reliever such as Dayquil to help reduce the symptoms. Antibiotics have been prescribed. You should take these until completed and follow the directions. Antibiotics can sometimes cause upset stomach, and in rare cases, serious allergic reactions or serious gastrointestinal problems. If you start having severe abdominal pain, severe vomiting, or bloody diarrhea, you should be reevaluated by your physician or urgent care immediately. Follow up with your Primary Care Provider or return to clinic if symptoms do not improve within 3-5 days. If you develop severe symptoms such as shortness of breath, repeated vomiting, coughing up blood, or chest pain you should go to the emergency room or call 911 10/18/2024 Rib fractures (ICD-1 0 - S22.39XA) Need tpo see chest surgeon gregory 11/16/2024 Closed fracture of multiple ribs of left side, initial encounter (ICD-10 - S22.42XA) 12/10/2024 Myalgia (ICD-10 - M79.10) 12/10/2024 Back pain (ICD-10 - M54.9) 03/12/2024 Wellness examination (ICD-10 - Z01.89) 10/04/2024 Chest pain (ICD-10 - R07.9) 10/04/2024 Rib fractures (ICD-1 0 - S22.39XA) 10/10/2024 Rib fractures (ICD-1 0 - S22.39XA) 11/16/2024 Rib fractures (ICD-1 0 - S22.39XA) 10/04/2024 Pleural effusion (ICD-10 - J90) 10/04/2024 Rib fractures (ICD-1 0 - S22.39XA) 05/14/2024 Diabetes type 2, uncontrolled (ICD-10 - E11.65) 05/14/2024 Hypercholesterolemia (ICD-10 - E78.00) 05/23/2024 Acute non-recurrent sinusitis, unspecified location (ICD-10 - J01.90) Rest and drink more liquids, especially water. You may use a humidifier or vaporizer to help keep the drainage moist. Kcxm-cse-gvimose Nasal Saline may help the stuffy and runny nose. Use Ibuprofen and or Tylenol as needed for fever, chills, body aches or pain. Children 5 years old should not be given ebbm-omr-torczbw cough and cold medications such as guaifenesin and dextromethorphan. If you're over age 5, you may try zdci-moq-mlthvhw cold medications such as guaifenesin and dextromethorphan, or multi-symptom cold reliever such as Dayquil to help reduce the symptoms. Antibiotics have been prescribed. You should take these until completed and follow the directions. Antibiotics can sometimes cause upset stomach, and in rare cases, serious allergic reactions or serious gastrointestinal problems. If you start having severe abdominal pain, severe vomiting, or bloody diarrhea, you should be reevaluated by your physician or urgent care immediately. Follow up with your Primary Care Provider or return to clinic if symptoms do not improve within 3-5 days 10/04/2024 Fracture of rib of l eft side (ICD-10 - S22.32XA) 05/23/2024 Nasal congestion (ICD-10 - R09.81) 05/14/2024 Anxiety and depressi on (ICD-10 - F41.8) 12/10/2024 Other Recommended to rest and use a heating pad on the area. Take NSAIDs for pain as needed Plan Of Treatment Pending Test Test Name Order Date CMP (COMPLETE METABOLIC PANEL) 4 CMP (COMPLETE METABOLIC PANEL) 3 CMP (COMPLETE METABOLIC PANEL) 4 HEMOGLOBIN A1C (GLYCO) 01/07/2023 LIPID PANEL (CHOL/TRIG/HDL/LDL) 01/08/20 23 CBC WITH DIFF 01/07/2023 CBC WITH DIFF 05/14/2024 PSA, PROSTATE-SPECIFIC ANTIGEN 3 T3 FREE, T4 FREE and TSH 03/12/2024 FECAL OCCULT BLOOD 03/12/2024 CT Chest Low Dose for Screening* 024 High Sensitivity Troponin 05/14/2024 STOOL OCCULT BLOOD 01/07/2023 CT CHEST WO CON 10/04/2024 XR CHEST 2 V 10/04/2024 XR LSPINE 2_3 VIEWS 07/13/2023 THYROID PANEL (T4/TSH/FREE T3) THYROID PANEL (T4/TSH/FREE T3) 3 Free PSA 03/12/2024 Insurance Providers Payer Name Payer Address Payer Phone Subscriber Number Group Number Insured Name Patient Relationship to Insured Coverage Start Date Coverage End Date [facility] [address] [address] [place], [place] [phone] [id number] Tera Roberto Self - patient is the insured Medications Administered Medication Instructions Date of Administration Dosage Notes Ketorolac Tromethamine 09/21/2024 60 mg Medical (General) History Medical History History ICD Code Lumbar radiculitis M54.16 COVID-19 U07.1 Irritable bowel K58.9 Acute gastroenteritis K52.9 Low back pain at multiple sites M54.50 Controlled type 2 diabetes mellitus with hyperglycemia E11.65 Insomnia G47.00 Surgical History Surgery Date(Month/Year) 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
--- OUTSIDE RECORDS SUMMARY | 2025-01-16 09:17 | XMS_ITS | CCD ---
Author Organization [facility] Care Team Providers Care [employer] Certified Network Professional Name Role Phone DR ADARSH HALL Admitting Unavailable CLIFFORD, DR ALTAMIRANO Attending Unavailable CLIFFORD, DR ALTAMIRANO Referring Unavailable ODILIAY, DR ALTAMIRANO Primary Care Unavailable CLIFFORD, DR ALTAMIRANO Consulting Unavailable ODILIAY, DR ALTAMIRANO Admitting Unavailable HOY, DR ALTAMIRANO Attending Unavailable HOY, DR ALTAMIRANO Primary Care Unavailable HOY, DR ALTAMIRANO Consulting Unavailable CLIFFORD, DR ALTAMIRANO Admitting Unavailable ODILIAY, DR ALTAMIRANO Attending Unavailable CLIFFORD, DR ALTAMIRANO Primary Care Unavailable ODILIAY, DR ALTAMIRANO Consulting Unavailable CLIFFORD, DR ATLAMIRANO Admitting Unavailable HOY, DR ALTAMIRANO Attending Unavailable HOY, DR ALTAMIRANO Primary Care Unavailable HOJosefa, DR ALTAMIRANO Consulting Unavailable CLIFFORD, DR ALTAMIRANO [...] Consulting Unavailable CLIFFORD, DR ALTAMIRANO Admitting Unavailable CLIFFODR, DR ALTAMIRANO Attending Unavailable CLIFFORD, DR ALTAMIRANO Primary Care Unavailable CLIFFORD, DR ALTAMIRANO Consulting Unavailable AMALIA SMILEY Attending Unavailabl ADARSH Brown Referring Unavailable POLO HERRERA Attending Unavailable BENI LOPEZ Referring Unavailable Betty MARR, Esther Ro Attending Unavailable Betty MARR, Esther Ro Attending Unavailable Problems Active Problems Problem Classification Problem Date Documented Date Episodic/Chronic Coronary atherosclerosis and other heart disease (2 sources) Atherosclerotic heart disease of [place] coronary artery without angina pectoris; Translations: [Atherosclerotic heart disease of [place] coronary artery without angina pectoris] Onset: 10-13-2023 [...] Test Name Value Interpretation Reference Range Facility 36 11-12-2024 36 We received a paper request from [facility] Armando to refill spironolactone 12.5mg daily. I noticed patient has not been seen since November 2023. I LM for him to return my call. I then called his and spoke with her. She isn't sure if he's taking spironolactone or not. Upon review of Dr. Herrera's last note, he discontinued spironolactone. Paper faxed back to [facility] stating to NOT authorize refills at [...] have him return my call later today. [facility] Consulton 11-06-2024 Consult [id number] Isaiah Obrien 1975 Date Provider Department Center 11/06/2024 49027-ADVRHHEGXVAMALIA SMILEY JHVCTS [place] [facility] Family History Problem Relation Age of Onset Heart attack Maternal Grandfather Family Status - Relation Status Age at Maternal Grandfather Level of Service:94151 [place] OFFICE/OP CONSLTJ NEW/EST PT LOW MDM 30 MINUTES Reason for Visit and Comments: New Patient [632] - Nonhealing ribs, patient states that the pain radiates to left side to his back. Normal [facility] Abstracton 10-22-2024 Abstract [id number] Isaiah Obrien 1975 [facility] Provider Department Center 10/22/2024 2020-KAILA BOSTNO HVCTS [place] [facility] Family History Problem Relation Age of Onset Heart attack Maternal Grandfather Family Status - Relation Status Age at Maternal Grandfather Normal [facility] Office Visiton 12-05-2023 Follow-up visit [id number] Isaiah Obrien 1975 [facility] Provider Department Center 12/05/2023 271-POLO HERRERA [facility] Family History Problem Relation Age of Onset Heart attack Maternal Grandfather Family Status - Relation Status Age at Maternal Grandfather Level of Service:86803 [place] OFFICE/OUTPATIENT ESTABLISHED MOD MDM 30 MIN Normal [facility] 36on 12-01-2023 36 Patient informed. Normal [facility] 36on 11-29-2023 36 Please let him know his EF improved to 55%. He no longer needs to wear the LifeVest. Follow-up as scheduled. Thanks! Normal [facility] Telephoneon 11-29-2023 Telephone [id number] Isaiah Obrien 1975 [facility] Provider Department Center 11/29/2023 Deejay-ZACK [facility] Family History Problem Relation Age of Onset Heart attack Maternal Grandfather Family Status - Relation Status Age at Maternal Grandfather Normal [facility] Covid-19 PCR (CVDTBH)on 07-09 SARS-CoV-2 (COVID-19) RNA NIXON+probe Ql (Unsp spec) Detected Critically abnormal NOT DETECTED [facility] Comment on above: Result Comment: This test is not yet approved or cleared by the [place] FDA. When there are no FDA-approved or cleared tests available, and other criteria are met, FDA can make tests available under an emergency access mechanism called an Emergency Use Authorization (EUA). The EUA for this test is supported by the [place] of Health and Human Service's (HHS's) declaration [...] used). Performed By: #### A 1C #### [facility] [address] [place] [address] Dr. Bridger Aggarwal INFLUENZA A AND B [facility] 08-03 [facility] SEE BELOW Normal [facility] Comment on above: Result Comment: Nega tive for Flu A protein angiten. Infection due to Flu A cannot be ruled out. Flu A angiten in the sample may be below the detection limit of the test. Performed By: #### I NFLUAB #### [facility] [address] [place] [address] Dr. Bridger Agg[facility] SEE BEL[facility] Normal [facility] Comment on above: Result Comment: Nega tive for Flu B protein antigen. Infection due to Flu B cannot be ruled out. Flu B antigen in the sample may be below the detection limit of the test. Performed By: #### I NFLUAB #### [facility] [address] [place] [address] Dr. Bridger Aggarwal INFLUENZA A AG Negative Normal NEGATIVE SEE COMMENT [facility] Comment on above: Performed By: #### I NFLUAB #### [facility] [address] [place] [address] Dr. Bridger Aggarwal INFLUENZA B AG Negative Normal NEGATIVE SEE COMMENT [facility] Comment on above: Performed By: #### I NFLUAB #### [facility] [address] [place] [address] Dr. Bridger Aggarwal INTERNAL CONTROLS Within Normal Limits Normal Within Normal Limits [facility] Comment on above: Performed By: #### I NFLUAB #### [facility] [address] [place], [place] [address] Dr. Bridger Aggarwal CULTURE WOUNDon 04-23-2022 CULTURE [...] F Oxacillin <=0.25 S F Normal [facility] Comment on above: Performed By: #### A 1C #### [facility] [address] [place] [address] [address] [address] Bridger Aggarwal Covid-19 PCR (CVDTB)on 03-09 SARS-CoV-2 (COVID-19) RNA NIXON+probe Ql (Unsp spec) Not detected Normal NOT DETECTED [facility] Comment on above: Result Comment: This test is not yet approved or cleared by the [place] FDA. When there are no FDA-approved or cleared tests available, and other criteria are met, FDA can make tests available under an emergency access mechanism called an Emergency Use Authorization (EUA). The EUA for this test is supported by the [place] of Health and Human Service's (HHS's) declaration [...] SARS-CoV-2. Performed By: #### A 1C #### [facility] [address] [place] [address] Dr. Bridger Aggarwal Covid-19 PCR ([facility])on SARS-CoV-2 (COVID-19) RNA NIXON+probe Ql (Unsp spec) Not detected Normal NOT DETECTED [facility] Comment on above: Result Comment: When [...] for this test is supported by the [place] of Health and Human Service's declaration that [...] used). Performed By: #### A 1C #### [facility] [address] [place] [address] Dr. Bridger Aggarwal T4 LABCORPon 01-01-2022 T4 [Mass/Vol] 4.7 ug/dL Normal 4.5-12.0 [facility] Comment on above: Performed By: #### A 1C #### [facility] [address] [place] [address] Dr. Bridger Aggarwal FREE THYROXINE INDEX T7on FTI 1.69 Normal 1.30-4.50 [facility] Comment on above: Performed By: #### A 1C #### [facility] [address] [place] [address] Dr. Bridger Aggarwal T3U 36.0 % Normal 33.0-40.0 [facility] Comment on above: Performed By: #### A 1C #### [facility] [address] [place] [address] Dr. Bridger Aggarwal T4 [Mass/Vol] 4.70 ug/dL Normal 4.50-12.10 [facility] Comment on above: Performed By: #### A 1C #### [facility] [address] [place] [address] Dr. Bridger Aggarwal TSHon 12-28-2021 TSH 0.969 uIU/mL Normal 0.358-3.740 [facility] Comment on above: Performed By: #### A 1C #### [facility] [address] [place] [address] Dr. Bridger Aggarwal TSH RANGE SEE BELOW Normal [facility] Comment on above: Result Comment: <0.3 4 UIU/ml HYPERTHYROID 0.34-5.60 UIU/ml EUTHYROID >5.60 UIU/ml HYPOTHYROID Performed By: #### A 1C #### [facility] [address] [place] [address] Dr. Bridger Aggarwal CBC AUTO DIFFon 12-26-2021 BASO # 0.0 103/ul Normal 0.0-0.1 [facility] Comment on above: Performed By: #### C BC #### [facility] [address] [place] [address] Dr. Bridger Aggarwal Basophils/100 WBC (Bld) 0.4 % Normal 0.2-2.0 [facility] Comment on above: Performed By: #### C BC #### [facility] [address] [place] [address] Dr. Bridger Aggarwal EO # 0.1 103/ul Normal 0.0-0.7 [facility] Comment on above: Performed By: #### C BC #### [facility] [address] [place] [address] Dr. Bridger Aggarwal Eosinophils/100 WBC (Bld) 0.6 % Critically low 0.9-7.0 [facility] Comment on above: Performed By: #### C BC #### [facility] [address] [place] [address] Dr. Bridger Aggarwal Erythrocyte distribution width (RBC) [Ratio] 12.0 % Normal 11.0-15.0 [facility] Comment on above: Performed By: #### C BC #### [facility] [address] [place] [address] Dr. Bridger Aggarwal Hematocrit (Bld) [Volume fraction] 44.9 % Normal 42.0-54.0 [facility] Comment on above: Performed By: #### C BC #### [facility] [address] [place] [address] Dr. Bridger Aggarwal Hemoglobin (Bld) [Mass/Vol] 15.4 g/dL Normal 14.0-18.0 [facility] Comment on above: Performed By: #### C BC #### [facility] [address] [place] [address] Dr. Bridger Aggarwal IG # 0.03 10e3/ul Normal 0.00-0.03 [facility] Comment on above: Performed By: #### C BC #### [facility] [address] [place] [address] Dr. Bridger Aggarwal IG % 0.3 % Normal 0.0-0.5 [facility] Comment on above: Performed By: #### C BC #### [facility] [address] [place] [address] Dr. Bridger Aggarwal LYMPH # 1.5 103/ul Normal 1.2-3.8 [facility] Comment on above: Performed By: #### C BC #### [facility] [address] [place] [address] Dr. Bridger Aggarwal Lymphocytes/100 WBC (Bld) 14.2 % Critically low 20.5-60.0 [facility] Comment on above: Performed By: #### C BC #### [facility] [address] [place] [address] Dr. Bridger Aggarwal MANUAL DIFF REQ NO Normal [facility] Comment on above: Performed By: #### C BC #### [facility] [address] [place] [address] Dr. Bridger Aggarwal MCH (RBC) [Entitic mass] 34.2 pg Critically high 25.9-34.0 [facility] Comment on above: Performed By: #### C BC #### [facility] [address] [place] [address] [address] Bridger Aggarwal MCHC (RBC) [Mass/Vol] 34.3 g/dL Normal 29.9-35.2 [facility] Comment on above: Performed By: #### C BC #### [facility] [address] [place] [address] [address] Bridger Aggarwal MCV (RBC) [Entitic vol] 99.8 fL Critically high 80.0-94.0 [facility] Comment on above: Performed By: #### C BC #### [facility] [address] [place] [address] Dr. Bridger Aggarwal MONO # 0.7 103/ul Normal 0.3-0.8 [facility] Comment on above: Performed By: #### C BC #### [facility] [address] [place] [address] Dr. Bridger Aggarwal Monocytes/100 WBC (Bld) 6.3 % Normal 1.7-12.0 [facility] Comment on above: Performed By: #### C BC #### [facility] [address] [place] [address] Dr. Bridger Aggarwal NEUT # 8.2 103/ul Critically high 1.4-6.5 [facility] Comment on above: Performed By: #### C BC #### [facility] [address] [place] [address] Dr. Bridger Aggarwal Neutrophils/100 WBC (Bld) 78.2 % Critically high 43.0-75.0 [facility] Comment on above: Performed By: #### C BC #### [facility] [address] [place] [address] Dr. Bridger Aggarwal Platelet mean volume (Bld) [Entitic vol] 9.6 fL Normal 9.5-13.5 [facility] Comment on above: Performed By: #### C BC #### [facility] [address] [place] [address] Dr. Bridger Aggarwal PLT 247 103/ul Normal 150-450 [facility] Comment on above: Performed By: #### C BC #### [facility] [address] [place] [address] [address] Bridger Aggarwal RBC 4.50 106/ul Critically low 4.70-6.10 [facility] Comment on above: Performed By: #### C BC #### [facility] [address] [place] [address] [address] Bridger Aggarwal WBC 10.5 103/ul Normal 4.0-11.0 [facility] Comment on above: Performed By: #### C BC #### [facility] [address] HEAD WO CONon [...] incidental prominent perivascular space. Electronically authenticated by: JAOCB LALA Date: 2021-12-26 13:30 Normal [facility] PROF CHEM 8 (BAS METB)on Anion gap [Moles/Vol] 17.1 mmol/L Normal [facility] Comment on above: Performed By: #### A 1C #### [facility] [address] [place] [address] Dr. Bridger Aggarwal Calcium [Mass/Vol] 9.4 mg/dL Normal 8.5-10.1 [facility] Comment on above: Performed By: #### A 1C #### [facility] [address] [place] [address] Dr. Bridger Aggarwal Chloride [Moles/Vol] 97 mmol/L Critically low 98-107 [facility] Comment on above: Performed By: #### A 1C #### [facility] [address] [place] [address] Dr. Bridger Aggarwal CO2 [Moles/Vol] 20.6 mmol/L Critically low 21.0-32.0 [facility] Comment on above: Performed By: #### A 1C #### [facility] [address] [place] [address] Dr. Bridger Aggarwal Creatinine [Mass/Vol] 0.96 mg/dL Normal 0.70-1.30 [facility] Comment on above: Performed By: #### A 1C #### [facility] [address] [place] [address] Dr. Bridger Aggarwal EGFR-AF ANGUILLAN >60 Normal >=60 [facility] Comment on above: Performed By: #### A 1C #### [facility] [address] [place] [address] Dr. Bridger Aggarwal EGFR-NON AF ANGUILLAN >60 Normal >=60 [facility] Comment on above: Performed By: #### A 1C #### [facility] [address] [place] [address] Dr. Bridger Aggarwal Glucose [Mass/Vol] 216 mg/dL Critically high 74-106 [facility] Comment on above: Performed By: #### A 1C #### [facility] [address] [place] [address] Dr. Bridger Aggarwal Potassium [Moles/Vol] 3.7 mmol/L Normal 3.5-5.1 [facility] Comment on above: Performed By: #### A 1C #### [facility] [address] [place] [address] Dr. Bridger Aggarwal Sodium [Moles/Vol] 131 mmol/L Critically low 136-145 [facility] Comment on above: Performed By: #### A 1C #### [facility] [address] [place] [address] Dr. Bridger Aggarwal Urea nitrogen [Mass/Vol] 26.0 mg/dL Critically high 7.0-18.0 [facility] Comment on above: Performed By: #### A 1C #### [facility] [address] [place] [address] Dr. Bridger Aggarwal Urea nitrogen/Creatinine [Mass ratio] 27.1 mg/mg Normal [facility] Comment on above: Performed By: #### A 1C #### [facility] [address] [place] [address] Dr. Bridger Aggarwal CBC AUTO DIFFon 12-18-2021 BASO # 0.0 103/ul Normal 0.0-0.1 [facility] Comment on above: Performed By: #### A 1C #### [facility] [address] [place] [address] Dr. Bridger Aggarwal Basophils/100 WBC (Bld) 0.4 % Normal 0.2-2.0 [facility] Comment on above: Performed By: #### A 1C #### [facility] [address] [place] [address] Dr. Bridger Aggarwal EO # 0.1 103/ul Normal 0.0-0.7 [facility] Comment on above: Performed By: #### A 1C #### [facility] [address] [place] [address] Dr. Bridger Aggarwal Eosinophils/100 WBC (Bld) 1.2 % Normal 0.9-7.0 [facility] Comment on above: Performed By: #### A 1C #### [facility] [address] [place] [address] Dr. Bridger Aggarwal Erythrocyte distribution width (RBC) [Ratio] 12.5 % Normal 11.0-15.0 [facility] Comment on above: Performed By: #### A 1C #### [facility] [address] [place] [address] Dr. Bridger Aggarwal Hematocrit (Bld) [Volume fraction] 45.9 % Normal 42.0-54.0 [facility] Comment on above: Performed By: #### A 1C #### [facility] [address] [address] [address] Bridger Aggarwal Hemoglobin (Bld) [Mass/Vol] 15.8 g/dL Normal 14.0-18.0 [facility] Comment on above: Performed By: #### A 1C #### [facility] [address] [place] [address] [address] Bridger Aggarwal IG # 0.04 10e3/ul Critically high 0.00-0.03 [facility] Comment on above: Performed By: #### A 1C #### [facility] [address] [address] [address] Bridger Aggarwal IG % 0.5 % Normal 0.0-0.5 [facility] Comment on above: Performed By: #### A 1C #### [facility] [address] [place] [address] Dr. Bridger Aggarwal LYMPH # 1.7 103/ul Normal 1.2-3.8 [facility] Comment on above: Performed By: #### A 1C #### [facility] [address] [address] [address] Bridger Aggarwal Lymphocytes/100 WBC (Bld) 22.3 % Normal 20.5-60.0 [facility] Comment on above: Performed By: #### A 1C #### [facility] [address] [place] [address] Dr. Bridger Aggarwal MANUAL DIFF REQ NO Normal [facility] Comment on above: Performed By: #### A 1C #### [facility] [address] [address] [address] Bridger Aggarwal MCH (RBC) [Entitic mass] 34.3 pg Critically high 25.9-34.0 [facility] Comment on above: Performed By: #### A 1C #### [facility] [address] [place] [address] [address] Bridger gAgarwal MCHC (RBC) [Mass/Vol] 34.4 g/dL Normal 29.9-35.2 [facility] Comment on above: Performed By: #### A 1C #### [facility] [address] [address] [address] Birdger Aggarwal MCV (RBC) [Entitic vol] 99.6 fL Critically high 80.0-94.0 [facility] Comment on above: Performed By: #### A 1C #### [facility] [address] [address] [address] Bridger Aggarwal MONO # 0.7 103/ul Normal 0.3-0.8 [facility] Comment on above: Performed By: #### A 1C #### [facility] [address] [address] [address] Bridger Aggarwal Monocytes/100 WBC (Bld) 8.6 % Normal 1.7-12.0 [facility] Comment on above: Performed By: #### A 1C #### [facility] [address] [place] [address] [address] Brigder Aggarwal NEUT # 5.2 103/ul Normal 1.4-6.5 [facility] Comment on above: Performed By: #### A 1C #### [facility] [address] [place] [address] Dr. Bridger Aggarwal Neutrophils/100 WBC (Bld) 67.0 % Normal 43.0-75.0 [facility] Comment on above: Performed By: #### A 1C #### [facility] [address] [place] [address] Dr. Bridger Aggarwal Platelet mean volume (Bld) [Entitic vol] 9.4 fL Critically low 9.5-13.5 [facility] Comment on above: Performed By: #### A 1C #### [facility] [address] [place] [address] Dr. Bridger Aggarwal PLT 259 103/ul Normal 150-450 [facility] Comment on above: Performed By: #### A 1C #### [facility] [address] [address] [address] Bridger Aggarwal RBC 4.61 106/ul Critically low 4.70-6.10 [facility] Comment on above: Performed By: #### A 1C #### [facility] [address] [place] [address] Dr. Bridger Aggarwal WBC 7.8 103/ul Normal 4.0-11.0 [facility] Comment on above: Performed By: #### A 1C #### [facility] [address] [place] [address] Dr. Bridger Aggarwal FREE T3on 12-18-2021 FREE T3 2.71 pg/mlL Normal 2.18-3.98 [facility] Comment on above: Performed By: #### C MP, T4, FT3, TSH, LIPID #### [facility] [address] [place] [address] Dr. Bridger Aggarwal GLYCOHEMOGLOBIN A1Con 2021 ADA RECOMMENDATION SEE BELOW Normal [facility] Comment on above: Result Comment: ADA RECOMMENDED LIMIT 4.0 - 6.0 ADA THERAPEUTIC TARGET < 7.0 ACTION SUGGESTED > 7.0 Performed By: #### A 1C #### [facility] [address] [place] [address] Dr. Bridger Aggarwal Glucose [Mass/Vol] 197 mg/dL Normal [facility] Comment on above: Performed By: #### A 1C #### [facility] [address] [place] [address] Dr. Bridger Aggarwal HbA1c (Bld) [Mass fraction] 8.5 % Critically high 4.5-6.2 [facility] Comment on above: Performed By: #### A 1C #### [facility] [address] [place] [address] Dr. Bridger Aggarwal LIPID PROFILEon 12-18-2021 CHOL-HDL RATIO NORM SEE BELOW Normal [facility] Comment on above: Result Comment: 3.3 - 4.4 LOW RISK 4.4 - 7.1 AVERAGE RISK 7.1 - 11.0 MODERATE RISK >11.0 HIGH RISK Performed By: #### C MP, T4, FT3, TSH, LIPID #### [facility] [address] [place] [address] Dr. Bridger Aggarwal Cholesterol [Mass/Vol] 157 mg/dL Normal <=200 [facility] [facility] Comment on above: Performed By: #### C MP, T4, FT3, TSH, LIPID #### [facility] [address] [address] [address] Bridger Aggarwal Cholesterol in HDL [Mass/Vol] 46 mg/dL Normal 40-60 [facility] Comment on above: Performed By: #### C MP, T4, FT3, TSH, LIPID #### [facility] [address] [address] [address] Bridger Aggarwal Cholesterol in LDL [Mass/Vol] 85.8 mg/dL Normal [facility] Comment on above: Performed By: #### C MP, T4, FT3, TSH, LIPID #### [facility] [address] [address] [address] Bridger Aggarwal Cholesterol.total/Ch olesterol in HDL [Mass ratio] 3.4 {ratio} Normal [facility] Comment on above: Performed By: #### C MP, T4, FT3, TSH, LIPID #### [facility] [address] [address] [address] Bridger Aggarwal HDL NORMAL > or = 60 mg/dl - LOW CARDIOVASCULAR RISK <40 mg/dl - HIGH CARDIOVASCULAR RISK Normal [facility] Comment on above: Performed By: #### C MP, T4, FT3, TSH, LIPID #### [facility] [address] [address] [address] Bridger Aggarwal LDL CALC NORMAL SEE BELOW Normal [facility] Comment on above: Result Comment: <100 mg/dl OPTIMAL 100 - 129 mg/dl NEAR OR ABOVE OPTIMAL 130 - 159 mg/dl BORDERLINE HIGH 160 - 189 mg/dl HIGH >190 mg/dl VERY HIGH Performed By: #### C MP, T4, FT3, TSH, LIPID #### [facility] [address] [address] [address] Bridger Aggarwal Triglyceride [Mass/Vol] 126 mg/dL Normal <=150 [facility] Comment on above: Performed By: #### C MP, T4, FT3, TSH, LIPID #### [facility] [address] [address] [address] Bridger Aggarwal VLDL CALC 25.2 mg/dL Normal [facility] Comment on above: Performed By: #### C MP, T4, FT3, TSH, LIPID #### [facility] [address] [address] [address] Bridger Aggarwal OCC BLD IMMUNO SCREENon 12-06 OCCULT BLOOD Negative Normal NEGATIVE [facility] Comment on above: Performed By: #### O BSCRN #### [facility] [address] [place] [address] Dr. Bridger Aggarwal PROF 14(COMP METB)on 022 Albumin [Mass/Vol] 3.6 g/dL Normal 3.4-5.0 [facility] Comment on above: Performed By: #### C MP, T4, FT3, TSH, LIPID #### [facility] [address] [place] [address] Dr. Bridger Aggarwal Albumin/Globulin [Mass ratio] 0.9 {ratio} Normal [facility] Comment on above: Performed By: #### C MP, T4, FT3, TSH, LIPID #### [facility] [address] [place] [address] Dr. Bridger Aggarwal ALP [Catalytic activity/Vol] 84 U/L Normal 46-116 [facility] Comment on above: Performed By: #### C MP, T4, FT3, TSH, LIPID #### [facility] [address] [place] [address] Dr. Bridger Aggarwal ALT [Catalytic activity/Vol] 45 U/L Normal 16-63 [facility] Comment on above: Performed By: #### C MP, T4, FT3, TSH, LIPID #### [facility] [address] [place] [address] Dr. Bridger Aggarwal Anion gap [Moles/Vol] 12.1 mmol/L Normal [facility] Comment on above: Performed By: #### C MP, T4, FT3, TSH, LIPID #### [facility] [address] [place] [address] Dr. Bridger Aggarwal AST [Catalytic activity/Vol] 20 U/L Normal 15-37 [facility] Comment on above: Performed By: #### C MP, T4, FT3, TSH, LIPID #### [facility] [address] [place] [address] Dr. Bridger Aggarwal Bilirubin [Mass/Vol] 0.6 mg/dL Normal 0.2-1.0 [facility] Comment on above: Performed By: #### C MP, T4, FT3, TSH, LIPID #### [facility] [address] [place] [address] Dr. Bridger Aggarwal Calcium [Mass/Vol] 9.1 mg/dL Normal 8.5-10.1 [facility] Comment on above: Performed By: #### C MP, T4, FT3, TSH, LIPID #### [facility] [address] [place] [address] Dr. Bridger Aggarwal Chloride [Moles/Vol] 100 mmol/L Normal 98-107 [facility] Comment on above: Performed By: #### C MP, T4, FT3, TSH, LIPID #### [facility] [address] [place] [address] Dr. Bridger Aggarwal CO2 [Moles/Vol] 28.4 mmol/L Normal 21.0-32.0 [facility] Comment on above: Performed By: #### C MP, T4, FT3, TSH, LIPID #### [facility] [address] [place] [address] Dr. Bridger Aggarwal Creatinine [Mass/Vol] 0.99 mg/dL Normal 0.70-1.30 [facility] Comment on above: Performed By: #### C MP, T4, FT3, TSH, LIPID #### [facility] [address] [place] [address] Dr. Bridger Aggarwal EGFR-AF ANGUILLAN >60 Normal >=60 [facility] Comment on above: Performed By: #### C MP, T4, FT3, TSH, LIPID #### [facility] [address] [place] [address] Dr. Bridger Aggarwal EGFR-NON AF ANGUILLAN >60 Normal >=60 [facility] Comment on above: Performed By: #### C MP, T4, FT3, TSH, LIPID #### [facility] [address] [place] [address] Dr. Bridger Aggarwal Globulin (S) [Mass/Vol] 3.8 g/dL Normal [facility] Comment on above: Performed By: #### C MP, T4, FT3, TSH, LIPID #### [facility] [address] [place] [address] Dr. Bridger Aggarwal Glucose [Mass/Vol] 260 mg/dL Critically high 74-106 [facility] Comment on above: Performed By: #### C MP, T4, FT3, TSH, LIPID #### [facility] [address] [place] [address] Dr. Bridger Aggarwal Potassium [Moles/Vol] 4.5 mmol/L Normal 3.5-5.1 [facility] Comment on above: Performed By: #### C MP, T4, FT3, TSH, LIPID #### [facility] [address] [place] [address] Dr. Bridger Aggarwal Protein [Mass/Vol] 7.4 g/dL Normal 6.4-8.2 [facility] Comment on above: Performed By: #### C MP, T4, FT3, TSH, LIPID #### [facility] [address] [place] [address] Dr. Bridger Aggarwal Sodium [Moles/Vol] 136 mmol/L Normal 136-[address] [facility] Comment on above: Performed By: #### C MP, T4, FT3, TSH, LIPID #### [facility] [address] [place] [address] Dr. Bridger Aggarwal Urea nitrogen [Mass/Vol] 17.0 mg/dL Normal 7.0-18.0 [facility] Comment on above: Performed By: #### C MP, T4, FT3, TSH, LIPID #### [facility] [address] [place] [address] Dr. Bridger Aggarwal Urea nitrogen/Creatinine [Mass ratio] 17.2 mg/mg Normal [facility] Comment on above: Performed By: #### C MP, T4, FT3, TSH, LIPID #### [facility] [address] [place] [address] Dr. Bridger Aggarwal T4on 12-18-2021 T4 [Mass/Vol] 4.80 ug/dL Normal 4.50-12.10 [facility] Comment on above: Performed By: #### C MP, T4, FT3, TSH, LIPID #### [facility] [address] [address] [address] Bridger Aggarwal TSHon 12-18-2021 TSH 1.496 uIU/mL Normal 0.358-3.740 [facility] Comment on above: Performed By: #### C MP, T4, FT3, TSH, LIPID #### [facility] [address] [address] [address] Bridger Aggarwal TSH RANGE SEE BELOW Normal [facility] Comment on above: Result Comment: <0.3 4 UIU/ml HYPERTHYROID 0.34-5.60 UIU/ml EUTHYROID >5.60 UIU/ml HYPOTHYROID Performed By: #### C MP, T4, FT3, TSH, LIPID #### [facility] [address] [address] [address] Bridger Aggarwal Encounters Encounter Date Encounter Type Care Provider Facility Start: 01-07-2025 End: 01-07-2025 ambulatory [facility] Start: 12-03-2024 End: 12-03-2024 ambulatory Esther Hernández MD Facility:[facility] Start: 11-06-2024 ambulatory AMALIA SMILEY [facility] Start: 10-19-2024 End: 10-19-2024 ambulatory BENI LOPZE [facility] Start: 12-05-2023 End: 12-05-2023 ambulatory POLO HERRERA [facility] Start: 08-10-2022 End: 08-10-[address] [...] examination without abnormal findings DR ADARSH HALL [facility] Start: 12-18-2021 End: 12-19-[address] ADARSH HALL Facility:[facility] Start: 12-18-2021 End: 12-19-2021 Encounter for general adult medical examination without abnormal findings DR ADARSH HALL Facility:[facility] Procedures Date Procedure Procedure Detail Performing Clinician Start: 12-18-[address] GREG HALL Comment on above: Performed By: #### P [facility] #### [facility] [address] [place] [address] Dr. Bridger Aggarwal Payers Date Payer Category Payer Private Health Insurance [id number] 2024 Private Health Insurance 1975 Unknown [id number] 2.16.84 [id number] 1973 Unknown [id number] 2..84 [id number] 1973 Unknown [id number] 2.16.84 [id number] 1973 Unknown [id number] 2.16.84 [id number] 1973 Unknown [id number] 2.16.84 [id number] 1973 Unknown [id number] 2.16.84 [id number] 1973 Unknown [id number] 2.16.84 [id number] 1973 Unknown [id number] 2.16.84 [id number] 1973 Unknown [id number] 2.16. [id number] 1973 Unknown [id number] 2.16. [id number] 1959 Private Health Insurance [id number] 1959 Unknown [id number] Progress note 11-06-2024 Note Date & Type [...] regular rhythm. Pulses: (more content not included)... [facility] Progress note 12-05-2023 Note Date & Type Note Facility 12-05-2023 Note [facility] Note Chief Complaint: Patient [...] his discharge. He has been wearing the LifeACEt with out issues. Denies c/o CP, dyspnea, orthopnea, PND, LE edema, dizziness/LH, palpitations, syncope. He has stopped drinking alcohol and smoking cigarettes. Discharge Summary (10/05/2023 - 10/09/2023 ) Final Discharge Diagnosis: New onset heart failure with reduced EF, 20-25%, NYHA I, with global hypokinesis NICMP Coronary artery disease- nonobstructive with sluggish coronary flow on [facility] 10/07/23 Hypertension Type 2 DM with A1C [...] obesity, LARS, tobacco dependence intially presents to [facility] after sudden onset SOB. He [...] 37.66 kg/m??? P (more content not included)... [facility] Summary Purpose Family History No Family [...] content) DATE CREATED AUTHOR 08/10/2022 [facility] DATE CREATED AUTHOR AUTHOR'S ORGANIZ ATION 11/13/2024 [facility] DATE CREATED AUTHOR AUTHOR'S ORGANIZ ATION 01/14/2025 [facility] FOR RECORDS PERTAINING TO PATIENTS WHO [...] BE BASED ON THE PRIMARY CLINICAL RECORDS. [facility] [employer] [facility]. provides no warranty or guarantee of the accuracy or completeness of information in this document.
--- NOTE | 2025-01-16 09:19 | PM.CN ---
Consult Note: HPI Data of Consult Patient: known to practice within the last 3 years Requesting Physician: Hailey Prakash NP Primary Care Provider: Donn Hall MD Consult Narrative Reason for consult: f/u Narrative: Isaiah Obrien a pleasant 49 year old male presents for evaluation of chronic severe thoracic and lumbar pain. pain in lumbar spine 3/10 increasing to 8/10 with standing, walking, mowing, lifting, twisting. denies numbness tingling weakness to BLE. pt has failed to benefit from > 6 weeks of PT and provider guided HEP, heat, ice, tylenol, nsaids. utilizes diclofenac 75mg daily, tylenol prn, tizanidine prn, percocet prn with benefit without side effects. pt recently underwent bilateral L4-5 L5-S1 facet medial branch block #1 with >80% improvement in pain and functional ability while anesthetized, preop pain up to 8/10 post op pain 0/10 for 3 hours with activity. cc:: CC: Hailey Prakash NP Review of Systems ROS Status of ROS 10 or more systems reviewed and unremarkable except as noted in history and below Musculoskeletal Reports: back pain PFSH PFSH Medical History Depression ?F32.A - Depression, unspecified (ICD-10) Intractable pain ?R52 - Pain, unspecified (ICD-10) Multiple fractures of ribs ?S22.49XA - Multiple fractures of ribs, unspecified side, initial encounter for closed fracture (ICD-10) Chest wall pain ?R07.89 - Other chest pain (ICD-10) Diabetes type 2 ?E11.9 - Type 2 diabetes mellitus without complications (ICD-10) Hypertension ?I10 - Essential (primary) hypertension (ICD-10) Pneumonitis ?J98.4 - Other disorders of lung (ICD-10) Chest pain ?R07.9 - Chest pain, unspecified (ICD-10) Bronchitis ?J40 - Bronchitis, not specified as acute or chronic (ICD-10) Family History Grandfather Family history of CHF (congestive heart failure) Grandmother Family history of diabetes mellitus Father Family history of hypertension Uncle Family history of stroke Social History Within the past year, how often did you have a drink containing alcohol: 4 or more times a week Within the past year, how many standard drinks containing alcohol did you have on a typical day: 1 or 2 Within the past year, how often did you have six or more drinks on one occasion: less than monthly Total score: 1 Score interpretation: A score of 4 or more indicates drinking is likely to affect patient's safety. Smoking status: Current every day smoker Non-prescribed substance use: denies use Highest level of school completed/degree received: Associate degree: occupational, technical, vocational program Are you now , , , , never or living with a partner: In a typical week, how many times do you talk on the telephone with family, friends, or neighbors: 3 or more times per week How often do you get together with friends or relatives: 3 or more times per week How often do you attend muslim or pentecostal services: never Do you belong to any clubs or organizations such as muslim groups unions, [employer] or athletic groups, or school groups: no Total score: 2 Score interpretation: A score of greater than or equal to 2 indicates the lowest level of social isolation. Little interest or pleasure in doing things: not at all Feeling down, depressed, or hopeless: not at all Feel stressed/tense/nervous/anxious/difficulty sleeping: not at all Do you think of yourself as: straight/heterosexual Gender Identity: male Meds Home Medications and Allergies Home Medications ?Medication ?Instructions ?Recorded ?Confirmed ?Type glimepiride 4 mg tablet 4 mg PO DAILY 10/05/23 01/07/25 History venlafaxine 75 mg capsule,extended 75 mg PO DAILY 10/05/23 01/07/25 History release 24 hr aspirin 81 mg chewable tablet 1 tab PO .qd 09/17/24 01/07/25 History carvedilol 6.25 mg tablet 6.25 mg PO BID 09/17/24 01/07/25 History sacubitril 49 mg-valsartan 51 mg 1 tab PO BID 09/17/24 01/07/25 History tablet (Entresto) spironolactone 25 mg tablet 12.5 mg PO .qd 09/17/24 01/07/25 History oxycodone-acetaminophen 5 mg-325 1 tab PO BID PRN pain #60 tabs 12/03/24 01/07/25 Rx mg tablet (Percocet) acetaminophen-pamabrom 500 mg-25 1 tab PO Q6H 12/05/24 01/07/25 History mg tablet atorvastatin 80 mg tablet 80 mg PO DAILY 12/05/24 01/07/25 History diclofenac sodium 75 mg 75 mg PO BID 12/05/24 01/07/25 History tablet,delayed release empagliflozin 10 mg tablet 10 mg PO DAILY 12/05/24 01/07/25 History (Jardiance) pantoprazole 40 mg tablet,delayed 40 mg PO BID 12/05/24 01/07/25 History release tizanidine 4 mg capsule 4 mg PO Q6H PRN muscle spasticity 12/05/24 01/07/25 History Allergies Allergy/AdvReac Type Severity Reaction Status Date / Time No Known Drug Allergies Allergy Verified 01/07/25 12:28 Exam Constitutional Documenting provider has reviewed patient's vital signs: yes Common normals: no apparent distress, oriented x3, healthy appearing, alert and well nourished General appearance: cooperative [facility] Common normals: normocephalic, hearing grossly normal bilaterally and moist oral mucous membranes Head and scalp: normocephalic Eye Common normals: PERRL Pupil: PERRL Neck & C-Spine Common normals: full ROM General: normal visual inspection Chest Common normals: inspection of chest normal Respiratory Common normals: normal respiratory effort, no retractions and no use of accessory muscles Back & Pelvis Thoracic spine/upper back: pain with ROM, thoracic spinal tenderness (right greater than left) T-spine tenderness location: T5, T6 and T7 and paraspinal muscle tenderness Thoracic paraspinal muscle tenderness: right and left Lumbar spine/lower back: ROM limited, pain with ROM, lumbar spinal tenderness Lumbar spinal tenderness location: L4 and L5 and straight leg raise negative bilaterally Other: positive facet loading bilaterally strength 5/5 in BLE Extremity Common normals: normal to inspection and full ROM Neuro Common normals: oriented x3 Sensorium/orientation: alert Psych Common normals: mental status grossly normal, thought process normal, cooperative, affect normal, speech normal and activity/motor behavior normal Speech: normal speech Thought process: normal thought process Results Additional Findings Additional findings: If on a controlled substance or opioids, I have checked an [place] report on this patient and there are no aberrancies noted in the prescribing history.??If on a controlled substance or opioid a drug screen was completed and reviewed within the last year, and if there has not been a drug screen completed we ordered one today to monitor higher risk, state monitored pain medication use. As part of providing excellent, safe, comprehensive care, the following was completed at our patient's visit: 1. A medication reconciliation and review to ensure accurate knowledge of current/active medications, including asking our patients to inform us about any [id number] medications or herbal remedies/nutritional supplements/alternative remedies. 2. A review to specifically ensure our patients have had annual screening for screening for depression, screening for tobacco use, and screening for unhealthy alcohol use. For concerning screenings had a discussion with the patient, provided patient education, and recommended follow-up with primary care provider when appropriate. If patient noted with a risk of falling, they received education on strength, gait, and balance training to prevent future risk of falling. Portions of this note may have been carried over from the previous visit and updated as appropriate. Please note this office utilizes paper charting in addition to the electronic medical record. A list of current medications, vitals, and PMH is available there as the clinical staff outside of myself do not have access to [employer] charting during the clinic day operations. As part of providing quality comprehensive care the current medications, vitals, and PMH were reviewed in the paper chart. Assessment and Plan Assessment and Plan (1) Lumbar spondylosis: Assessment and Plan: The patient has had over 3 months of moderate to severe low back pain with functional impairment and inadequate response to conservative care including NSAIDS (unless there are contraindication such as concurrent blood thinners), multiple oral or topical pain medications, and home exercise program/physical therapy.? Patient has completed >6 weeks of guided home exercise program and/or formal physical therapy program without relief of their symptoms.? I have reviewed the imaging of the lumbar spine and no red flags were identified.? The imaging reveals radiographic findings consistent with lumbar ddd and spondylosis The Oswestry Disability Index was completed, and the patient scored a 26%.? We discussed the risks and benefits of the procedure with the patient, and we are NOT planning on using sedation as outlined in the guidelines from Medicare unless there is a documented reason that sedation would be strongly recommended.?? ?The procedure will be completed with fluoroscopic guidance.? (2) Lumbar degenerative disc disease: (3) Encounter for medication monitoring: Assessment and Plan: continue percocet 5-325 bid prn moderate to severe pain (4) Intractable pain: Assessment and Plan: significant improvement in thoracic neuralgia (5) Multiple rib fractures: Qualifiers: Encounter type: initial encounter Fracture type: closed Laterality: left Qualified Code(s): S22.42XA - Multiple fractures of ribs, left side, initial encounter for closed fracture (6) Intercostal neuralgia: Assessment and Plan: 12/10/24 left T5,6,7 intercostal nerve block >80% improvement while ansethetized and ongoing Plan bilateral L4-5 L5-S1 mbb x2 working towards rfa continue HEP as tolerated continue current medications f/u after each nerve block
== END 2025-01-16 08:57 | disposition home or self-care (01) ==
PROVIDERS: PCP Family Medicine; Visit Provider Nurse Practitioner
DX: M47.816 Spondylosis without myelopathy or radiculopathy, lumbar region (principal); M51.369 Other intervertebral disc degeneration, lumbar region without mention of lumbar back pain or lower extremity pain; Z51.81 Encounter for therapeutic drug level monitoring; R52 Pain, unspecified; S22.42XA Multiple fractures of ribs, left side, initial encounter for closed fracture
CPT/HCPCS: G0463